=== PATIENT | female | born 1980 | race Caucasian/White ===

== ENCOUNTER 2018-03-26 17:46 | Emergency (ER) | payer OTHER ==
[~2018-03-26] VITALS: Ht 160 cm; Wt 88.5 kg
[~2018-03-26 17:46] MED LIST: AMBIEN5 MG PO; ATIVAN0.5 MG PO; BACLOFEN10 MG PO; CALCIUM + VITA1 EACH PO; CYCLOBENZAPRINE10 MG PO; DICLOFENAC SODI75 MG PO; DOXYCYCLINE HY100 MG PO; HYDROXYZINE PAM50 MG; LISINOPRIL10 MG PO; OXYCODONE HCL5 MG PO; PERCOCET 5-3251 EACH PO; PRILOSEC20 MG PO; PROMETHAZINE HC25 M1 PO; PROZAC10 MG PO; REQUIP2 MG PO; SPIRONOLACTONE50 MG PO; VITAMIN D5000 UNIT PO; ZOFRAN ODT4 MG PO
[2018-03-26] MEDS ORDERED: KEPPRA750 MG PO (18:23)
[2018-03-26] MEDS ORDERED: KEFLEX500 MG PO (18:29)
== END 2018-03-26 18:32 | disposition home or self-care (01) ==
LOC: ED 17:46
DX: L02.211 Cutaneous abscess of abdominal wall (principal); I10 Essential (primary) hypertension; Z87.891 Personal history of nicotine dependence; Z88.0 Allergy status to penicillin; Z79.899 Other long term (current) drug therapy
CPT/HCPCS: 99283

== ENCOUNTER 2018-05-24 22:15 | Emergency (ER) | payer OTHER ==
[~2018-05-24] VITALS: Ht 160 cm; Wt 88.5 kg
--- OUTSIDE RECORDS SUMMARY | ~2018-05-24 | XMS | Clinical Summary ---
Demographics + + + | Address | [address] | | | [place] [address] | + + + | Home Phone | | + + + | Preferred Language | Unknown | + + + | Marital Status | | + + + | Adventism Affiliation | Unknown | + + + | Race | Unknown | + + + | Ethnic Group | Unknown | + + + Author + + + | Author | [facility] | | | and [place] | + + + | Organization | [facility] | | | and [place] [...] Team Providers + +------+ + | Care Animal Anatomy Teacher Name | Role | Phone | + +------+ + | Melvina Talley | PP | | | IT SERVICE DELIVERY MANAGER | | | + +------+ + Allergies + + + + + + | Active Allergy | Reactions | Severity | Noted | Comments | | | | | Date | | + + + + + + | Penicillins | Rash | Low | 04/16/19 | | | | | | 18 | | + + + + + + Current Medications + + +-------+---------+------+------+-------+ | Prescription | Sig. | Disp. | Refills | Star | End | Statu | | | | | | t | Date | s | | | | | | Date | | | + + +-------+---------+------+------+-------+ | oxyCODONE 10 MG | Take 10 mg by mouth | | | | | Activ | | TABS | every 4 hours as | | | | | e | | | needed. | | | | | | + + +-------+---------+------+------+-------+ | cyclobenzaprine | Take 10 mg by mouth | | | | | Activ | | (FLEXERIL) 10 mg | 3 times daily as | | | | | e | | tablet | needed for Muscle | | | | | | | | spasms. | | | | | | + + +-------+---------+------+------+-------+ | zolpidem (AMBIEN) | Take 10 mg by mouth | | | | | Activ | | 10 mg tablet | nightly as needed | | | | | e | | | for Insomnia. | | | | | | + + +-------+---------+------+------+-------+ | docusate sodium | Take 100 mg by mouth | | | | | Activ | | (COLACE) 100 mg | Daily. | | | | | e | | capsule | | | | | | | + + +-------+---------+------+------+-------+ | omeprazole | Take 20 mg by mouth | | | | | Activ | | (PRILOSEC) 20 mg | every morning | | | | | e | | capsule | (before breakfast). | | | | | | + + +-------+---------+------+------+-------+ | spironolactone | Take 25 mg by mouth | | | | | Activ | | (ALDACTONE) 25 mg | 2 times daily. | | | | | e | | tablet | | | | | | | + + +-------+---------+------+------+-------+ | lisinopril | Take 5 mg by mouth | | | | | Activ | | (PRINIVIL, ZESTRIL) | Daily. | | | | | e | | 10 mg tablet | | | | | | | + + +-------+---------+------+------+-------+ | BYSTOLIC 10 MG | Take 10 mg by mouth | | | 03/1 | | Activ | | tablet | 2 times daily. | | | 2/20 | | e | | | | | | 18 | | | + + +-------+---------+------+------+-------+ | Cyanocobalamin | Inject as directed | | | | | Activ | | (B-12 COMPLIANCE | Every 30 days. | | | | | e | | INJECTION) 1000 | | | | | | | | MCG/ML KIT | | | | | | | + + +-------+---------+------+------+-------+ | Sennosides | Take by mouth | | | | | Activ | | (SENOKOT PO) | Daily. | | | | | e | + + +-------+---------+------+------+-------+ | baclofen | | | | 08/0 | | Activ | | (LIORESAL) 10 mg | | | | 6/20 | | e | | tablet | | | | 18 | | | + + +-------+---------+------+------+-------+ | hydrOXYzine | | | | 08/0 | | Activ | | hydrochloride | | | | 6/20 | | e | | (ATARAX) 10 mg | | | | 18 | | | | tablet | | | | | | | + + +-------+---------+------+------+-------+ | ondansetron | | | | 08/0 | | Activ | | (ZOFRAN) 8 MG tablet | | | | 6/20 | | e | | | | | | 18 | | | + + +-------+---------+------+------+-------+ Active Problems + + + | Problem | Noted Date | + + + | Diabetes mellitus [...] | 05/31/2017 | + + + | Prostate cancer (HCC) | | + + + | Chronic pelvic pain in female | | + + + Family History + + +------+ + | [...] on file | | + + + Last Filed Vital Signs + [...] + + + + | Weight | 88 kg (194 lb 0.1 | 06/04/2017907 PDT | | | oz) | | + + + + | Height | 160 cm (5' 3") | 06/04/2017907 PDT | + + + + | Body Mass Index | 34.37 | 06/04/2017907 PDT | + + + + Plan [...] + + + + | Hemoglobin A1c Q3 | | | | | Months | 7 | | | + + [...] Vaccine: Influenza | | | | | (Season Ended) | 9 | | | + + + + + Results Not on filefrom Last 3 Months Insurance + +--------+ +--------+ +---------+ | Payer | Benefi | Subscriber | Type | Phone | Address | | | t Plan | ID | | | | | | / | | | | | | | Group | | | | | + +--------+ +--------+ +---------+ | [employer] | [employer] | [id number] | Med[employer] | +- | | | MEDICAID HMO | HEALTH | | id | [id number] | | | | [place] | | | | | | | [place] | | | | | + +--------+ +--------+ +---------+ + +--------+ +--------+ + + | Guarantor Name | Accoun | Relation to | Date | Phone | Billing Address | | | t Type | Patient | of | | | | | | | | | | + +--------+ +--------+ + + | ANIKET SWEENEY | Person | Self [birth year] Home: | [address] | | | al/[place] | | 1980 | [phone] [place] [address] | | | paramjit | | | [phone] | | + +--------+ +--------+ + +
--- OUTSIDE RECORDS SUMMARY | ~2018-05-24 | XMS | Clinical Summary ---
Demographics + + + | Address | [address] | | | [place] [address] | + + + | Home Phone | | + + + | Preferred Language | Unknown | + + + | Marital Status | | + + + | Evangelical Affiliation | NON | + + + | Race | White | + + + | Ethnic Group | Not or | + + + Author + + + | Author | [facility] | + + + | Organization | [facility] | + + + | Address | Unknown | + + + | Phone | Unavailable | + + + Support + + +---------+ + | Name | Relationship | Address | Phone | + + +---------+ + | CHEN SWEENEY | ECON | Unknown | | + + +---------+ + | Kentrell Crow | ECON | Unknown | | + + +---------+ + Care Team Providers + +------+ + | Care Recreation Engineer Name | Role | Phone | + +------+ + | Melvina TalleyP | PP | | + +------+ + Source Comments ANSHU is fully live on both EpicCare Ambulatory and EpicCare InPatient.[facility] Allergies + + + + + + | Active Allergy | Reactions | Severity | Noted | Comments | | | | | Date | | + + + + + + | Penicillin | Rash | Medium | 02/04/20 | | | | | | 15 | | + + + + + + | Penicillins | Rash | | 12/10/19 | | | | | | 18 | | + + + + + + Current Medications + + +---------+---------+------+------+-------+ | Prescription | Sig. | Disp. | Refills | Star | End | Statu | | | | | | t | Date | s | | | | | | Date | | | + + +---------+---------+------+------+-------+ | omeprazole 20 mg | Take 20 mg by mouth | | | | | Activ | | oral capsule,delayed | every twelve hours. | | | | | e | | release(/EC) | | | | | | | + + +---------+---------+------+------+-------+ | lisinopril 5 mg | Take 5 mg by mouth | | | | | Activ | | oral tablet | once daily. | | | | | e | + + +---------+---------+------+------+-------+ | zolpidem 10 mg | Take 10 mg by mouth | | | | | Activ | | oral tablet | once daily at | | | | | e | | | bedtime as needed | | | | | | | | for sleep. | | | | | | + + +---------+---------+------+------+-------+ | FLUoxetine 10 mg | Take 10 mg by mouth | | | | | Activ | | oral capsule | once daily. | | | | | e | + + +---------+---------+------+------+-------+ | rOPINIRole 1 mg | Take 1 mg by mouth | | | | | Activ | | oral tablet | once daily in the | | | | | e | | | evening. | | | | | | + + +---------+---------+------+------+-------+ | ondansetron 8 mg | Take 8 mg by mouth | | | | | Activ | | oral tablet | once daily as | | | | | e | | | needed. | | | | | | + + +---------+---------+------+------+-------+ | baclofen 10 mg | Take 10 mg by mouth | | | | | Activ | | oral tablet | four times daily. | | | | | e | + + +---------+---------+------+------+-------+ | hydrOXYzine 10 mg | Take 10 mg by mouth | | | | | Activ | | oral tablet | four times daily. | | | | | e | + + +---------+---------+------+------+-------+ | LORazepam 0.5 mg | Take 0.5 mg by mouth | | | | | Activ | | oral tablet | as needed for | | | | | e | | | anxiety. | | | | | | + + +---------+---------+------+------+-------+ | promethazine 12.5 | Take 12.5 mg by | | | | | Activ | | mg oral tablet | mouth four times | | | | | e | | | daily as needed for | | | | | | | | nausea/vomiting. | | | | | | + + +---------+---------+------+------+-------+ | cyanocobalamin | Inject 1,000 mcg | | | | | Activ | | 1,000 mcg/mL | under the skin | | | | | e | | injection solution | (SUBC) every seven | | | | | | | | days. | | | | | | + + +---------+---------+------+------+-------+ | oxyCODONE | Take 10 mg by mouth | | | | | Activ | | (immediate release) | as needed. | | | | | e | | 10 mg oral tablet | | | | | | | + + +---------+---------+------+------+-------+ | levETIRAcetam 750 | Take 1 tablet by | 90 | 3 | 01/ | | Activ | | mg oral tablet | mouth two times | tablet | | 07/07 | | e | | | daily. | | | 19 | | | + + +---------+---------+------+------+-------+ | ergocalciferol | Take 1 capsule by | 10 | 0 | 01/2 | | Activ | | (VITAMIN D2) 50,000 | mouth every seven | capsule | | 5/20 | | e | | unit oral capsule | days. | | | 19 | | | + + +---------+---------+------+------+-------+ Active Problems + + + | Problem | Noted Date | + + + | MOISÉS (obstructive sleep apnea) | 06/27/2016 | + + + | Obesity (BMI 30-39.9) | 06/27/2016 | + + + | Essential hypertension | 06/27/2016 | + + + | Migraine without aura and without status migrainosus, not | 03/27/2015 | | intractable | | + + + Encounters +--------+ + + + + | Date | Type | Specialty | Care Team | Description | +--------+ + + + + | 05/07/ | MyChart | | Keon Gerber, | Vitamin D | | 2019 | Encounter | | MD | | +--------+ + + + + | 01/25/ | Lab | | | RLS (restless legs | | 2019 | | | | syndrome); Abdominal | | | | | | pain, unspecified | | | | | | abdominal location; | | | | | | Myoclonus; | | | | | | Hypovitaminosis D | +--------+ + + + + | 03/14/ | Office | | Keon Gerber, | Myoclonus (Primary | | 2018 | Visit | | MD | Dx); RLS (restless | | | | | | legs syndrome); | | | | | | Abdominal pain, | | | | | | unspecified | | | | | | abdominal location; | | | | | | Hypovitaminosis D | +--------+ + + + + | 03/14/ | MyChart | | Keon Gerber, | RE:Labs | | 2018 | Encounter | | MD | | +--------+ + + + + from Last 3 Months Family History + + +------+ + | Medical History | Relation | Name | Comments | + + +------+ + | Cancer | Maternal | | Colon, breast | | | Grandmoth | | | | | er | | | + + +------+ + | Thyroid | Maternal | | | | | Grandmoth | | | | | er | | | + + +------+ + | Thyroid | Mother | | | + + +------+ + | Thyroid | Sister | | | + + +------+ + | Movement Disorder | Neg Hx | | | + + +------+ + | Tremor | Neg Hx | | | + + +------+ + + +------+--------+ + | Relation | Name | Status | Comments | + +------+--------+ + | Maternal Grandmother | | | | + +------+--------+ + | Mother | | | | + +------+--------+ + | Sister | | | | + +------+--------+ + Social History + +-------+ +--------+------+ | [...] + + + | Blood Pressure | 144/80 | 03/14/2018 2:45 PM PST | + + + + | Pulse | 72 | 03/14/2018 2:45 PM PST | + + + + | Temperature | 37 C (98.6 F) | 12/09/2017 7:27 PM PDT | + + + + | Respiratory Rate | 12 | 12/09/2017 2:00 PM PDT | + + + + | Oxygen Saturation | 99% | 12/09/2017 7:27 PM PDT | + + + + | Inhaled Oxygen | - | - | | Concentration | | | + + + + | Weight | 89.8 kg (198 lb) | 03/14/2018 2:45 PM PST | + + + + | Height | 160 cm (5' 3") | 08/17/2016 1:47 PM PDT | + + + + | Body Mass Index | 35.07 | 03/14/2018 2:45 PM PST | + + + + Plan of Treatment +--------+---------+ + + + | Date | Type | Specialty | Care Team | Description | +--------+---------+ + + + | 06/11/ | Office | | Vicki Miller MD | | | 2019 | Visit | | [address] | | | | | | [place], | | | | | | [place] [address] | | | | | | [phone] | | | | | | | | +--------+---------+ + + + + + + + + | Health Maintenance | Due Date | Last Done | Comments | + + + + + | Pneumococcal (Adult) | | | | | (1 of 3 - PCV13) | 8 | | | + + + + + | Influenza (Flu) | | 02/21/2016, 01/06/2008 | | | vaccination (#1) | 8 | | | + + + + + Procedures + +--------+ + + + | [...] section. | + +--------+ + + + from Last 3 Months Results PORPHYRINS AND PORPHOBILINOGEN, URINE (03/14/2018 4:29 PM) + + + + + | Component | Value | Ref Range | Performed At | + + + + + | UROPORPHYRIN, URINE | 3 | 0 - 4 umol/mol SKID MAN | [facility] | | ([facility]) | | | [facility] | | | | | [facility] | + + + + + | HEPTACARBOXYLATE | <1 | 0 - 2 umol/mol SKID MAN | [facility] | | PORPHYRIN([facility]) | | | [facility] | | | | | [facility] | + + + + + | COPROPORPHYRIN I | 3 | 0 - 6 umol/mol SKID MAN | [facility] | | | | | [facility] | | | | | [facility] | + + + + + | COPROPORPHYRIN III | 10 | 0 - 14 umol/mol SKID MAN | [facility] | | | | | [facility] | | | | | [facility] | + + + + + | CREATININE,UR(REFERR | Not Applicable | 700 - 1600 mg/d | [facility] | | AL) | | | [facility] | | | | | [facility] | + + + + + | CREATININE URINE | 75 | mg/dL | [facility] | | CONCENTRATION | | | [facility] | | | | | [facility] | + + + + + | URINE COLLECTION | Not Provided | hr | [facility] | | | | | [facility] | | | | | [facility] | + + + + + | URINE VOLUME(REF) | Not Provided | mL | [facility] | | | | | [facility] | | | | | [facility] | + + + + + | PORPHOBILINOGEN, | 3.7 | 0.0 - 8.8 umol/L | [facility] | | URINE | | | [facility] | | | | | [facility] | + + + + + | PORPHOBILINOGEN, | Not Applicable | 0.0 - 11.0 umol/d | [facility] | | URINE (24-HOUR) | | | [facility] | | | | | [facility] | + + + + + | PORPHYRIN | NegativeComment: | | [facility] | | INTERPRETATION | INTERPRETIVE | | [facility] | | | INFORMATION: Porphyrins, | | [facility] | | | Fractionation and | | | | | Quantitation, | | | | | | | | | | | | | | | Urine Results are | | | | | normalized to creatinine | | | | | concentration and | | | | | reported as a ratio of | | | | | amounts (micromoles of | | | | | porphyrin/moles of | | | | | creatinine). Test | | | | | developed and | | | | | characteristics | | | | | determined by [facility] | | | | | [facility]. See | | | | | Compliance Statement B: | | | | | [facility]/CSPerformed | | | | | by [facility],[address] | | | | | [address] [facility],[place] | | | | | [address] | | | | | [phone][facility]. | | | | | Kaleb neely MD, | | | | | Lab. Director | | | + + + + + + + | Specimen | + + | Urine - Urine | + + + + + + + | Performing | Address | City/State/Zipcode | Phone Number | | Organization | | | | + + + + + | [facility] | [address] | [place], [place] | | | [facility] | | [address] | | + + + + + ALA, URINE (03/14/2018 4:29 PM) + + + + + | Component | Value | Ref Range | Performed At | + + + + + | AMINOLEVULINIC ACID | Not Applicable | 0 - 60 umol/d | [facility] | | - PER 24H | | | [facility] | | | | | [facility] | + + + + + | AMINOLEVULINIC ACID | 10 | 0 - 35 umol/L | [facility] | | - PER VOLUME | | | [facility] | | | | | [facility] | + + + + + | CREATININE,UR(REFERR | Not Applicable | 700 - 1600 mg/d | [facility] | | AL) | | | [facility] | | | | | [facility] | + + + + + | CREATININE URINE | 72Comment: Performed by | mg/dL | [facility] | | CONCENTRATION | [facility],[address] | | [facility] | | | Marlon [address]ash, [facility],[place] | | [facility] | | | [address] | | | | | [phone].[facility]. | | | | | Kaleb neely MD, | | | | | Lab. Director | | | + + + + + | URINE COLLECTION | Not Provided | hr | [facility] | | | | | [facility] | | | | | [facility] | + + + + + | URINE VOLUME(REF) | Not Provided | mL | [facility] | | | | | [facility] | | | | | [facility] | + + + + + + + | Specimen | + + | Urine - Urine | + + + + + + + | Performing | Address | City/State/Zipcode | Phone Number | | Organization | | | | + + + + + | [facility] | [address] | [place], [place] | | | [facility] | | [address] | | + + + + + CBC AND AUTO DIFF (03/14/2018 4:26 PM) + + + + + | Component | Value | Ref Range | Performed At | + + + + + | WHITE CELL COUNT | 10.53 | 3.50 - 10.80 K/cu mm | [facility] | | | | | SERVICES, CORE | + + + + + | RED CELL COUNT | 4.75 | 4.00 - 5.20 M/cu mm | [facility] | | | | | SERVICES, CORE | + + + + + | HEMOGLOBIN | 14.0 | 12.0 - 16.0 g/dL | [facility] | | | | | SERVICES, CORE | + + + + + | HEMATOCRIT | 41.2 | 36.0 - 46.0 % | [facility] | | | | | SERVICES, CORE | + + + + + | MCV | 86.7 | 80.0 - 100.0 fL | [facility] | | | | | SERVICES, CORE | + + + + + | MCHC | 34.0 | 32.0 - 36.0 g/dL | [facility] | | | | | SERVICES, CORE | + + + + + | RDW SD | 40.5 | 35.1 - 46.3 fL | [facility] | | | | | SERVICES, CORE | + + + + + | PLATELET COUNT | 382 | 150 - 400 K/cu mm | [facility] | | | | | SERVICES, CORE | + + + + + | MPV | 10.2 | 9.7 - 12.3 fL | [facility] | | | | | SERVICES, CORE | + + + + + | NRBC% | 0.0 | 0.0 - 0.3 % | [facility] | | | | | SERVICES, CORE | + + + + + | NRBC# | 0.00 | 0.00 - 0.02 K/cu mm | [facility] | | | | | SERVICES, CORE | + + + + + | NEUTROPHIL % | 56.6 | 50.0 - 70.0 % | [facility] | | | | | SERVICES, CORE | + + + + + | LYMPHOCYTE % | 34.8 | 18.0 - 42.0 % | [facility] | | | | | SERVICES, CORE | + + + + + | MONOCYTE % | 4.7 | 3.5 - 9.0 % | [facility] | | | | | SERVICES, CORE | + + + + + | EOS % | 3.4 (H) | 1.0 - 3.0 % | [facility] | | | | | SERVICES, CORE | + + + + + | BASO % | 0.1 | 0.0 - 2.0 % | [facility] | | | | | SERVICES, CORE | + + + + + | IG% | 0.4Comment: Increased | 0.0 - 1.0 % | [facility] | | | immature granulocytes | | SERVICES, CORE | | | (IG) define a left | | | | | shift. Immature | | | | | granulocytes (IG) are an | | | | | automated count of | | | | | metamyelocytes, | | | | | myelocytes and | | | | | promyelocytes. Bands | | | | | are not included in the | | | | | IG count. Bands are | | | | | included in the | | | | | neutrophil count. | | | + + + + + | NEUTROPHIL # | 5.96 | 1.80 - 7.70 K/cu mm | [facility] | | | | | SERVICES, CORE | + + + + + | LYMPHOCYTE # | 3.66 | 1.00 - 4.80 K/cu mm | [facility] | | | | | SERVICES, CORE | + + + + + | MONOCYTE # | 0.50 | 0.10 - 0.90 K/cu mm | [facility] | | | | | SERVICES, CORE | + + + + + | EOS # | 0.36 | 0.00 - 0.50 K/cu mm | [facility] | | | | | SERVICES, CORE | + + + + + | BASO # | 0.01 | 0.00 - 0.10 K/cu mm | [facility] | | | | | SERVICES, CORE | + + + + + | IG# | 0.04 | 0.00 - 0.10 K/cu mm | [facility] | | | | | SERVICES, CORE | + + + + + + + | Specimen | + + | Blood - Blood | + + + + + | [...] | + + + + + | [facility] | [address] | [place] [address] | | | ADIEL, JONATHAN | [address] | | | + + + + + VITAMIN D, 25-HYDROXY, SERUM (03/14/2018 4:26 PM) + + + + + | Component | Value | Ref Range | Performed At | + + + + + | VITAMIN D 25 HYDROXY | 18.6 (L) | 30 - 80 ng/mL | [facility] | | | | | SERVICES, CORE | + + + + + + + | Specimen | + + | Blood - Blood | + + + + + | Narrative | Performed At | + + + | Reference Interval: 0-18years: Deficiency: <20 ng/mL | [facility] | | Optimum level: >or=20 | [facility] | | ng/mL | ADIEL, CORE | | >18years: Deficiency: <20 ng/mL | | | Insufficiency: 20-29 ng/mL | | | Optimum Level: 30-80 ng/mL | | | High: 81-150 ng/ml | | | Toxic: >150 ng/mL | | + + + + + + + + | Performing | Address | City/State/Zipcode | Phone Number | | Organization | | | | + + + + + | [facility] | [address] | [place] [address] | | | JONATHAN CHUN | [address] | | | + + + + + COMPLETE METABOLIC SET (NA,K,CL,CO2,BUN,CREAT,GLUC,CA,AST,ALT,BILI TOTAL,ALK PHOS,ALB,PROT TOTAL) (03/14/2018 4:26 PM) + +---------+ + + | Component | Value | Ref Range | Performed At | + +---------+ + + | GLUCOSE, PLASMA | 97 | 70 - 99 mg/dL | [facility] | | (LAB) | | | SERVICES, CORE | + +---------+ + + | BUN, PLASMA (LAB) | 10 | 6 - 20 mg/dL | [facility] | | | | | SERVICES, CORE | + +---------+ + + | CREATININE PLASMA | 0.67 | 0.60 - 1.10 mg/dL | [facility] | | (LAB) | | | SERVICES, CORE | + +---------+ + + | EGFR - | >60 | >60 mL/min | [facility] | | NAMIBIAN | | | SERVICES, CORE | + +---------+ + + | EGFR NON | >60 | >60 mL/min | [facility] | | -NAMIBIAN | | | SERVICES, CORE | + +---------+ + + | SODIUM, PLASMA (LAB) | 137 | 136 - 145 mmol/L | [facility] | | | | | SERVICES, CORE | + +---------+ + + | POTASSIUM, PLASMA | 4.0 | 3.4 - 5.0 mmol/L | [facility] | | (LAB) | | | SERVICES, CORE | + +---------+ + + | CHLORIDE, PLASMA | 105 | 97 - 108 mmol/L | [facility] | | (LAB) | | | SERVICES, CORE | + +---------+ + + | TOTAL CO2, PLASMA | 26 | 21 - 32 mmol/L | [facility] | | (LAB) | | | SERVICES, CORE | + +---------+ + + | CALCIUM, PLASMA | 8.9 | 8.6 - 10.2 mg/dL | [facility] | | (LAB) | | | ADIEL, CORE | + +---------+ + + | CALCIUM(ALB | 8.6 | 8.6 - 10.2 mg/dL | [facility] | | CORRECTED) | | | SERVICES, CORE | + +---------+ + + | BILIRUBIN TOTAL | 0.4 | 0.3 - 1.2 mg/dL | [facility] | | | | | SERVICES, CORE | + +---------+ + + | TOTAL PROTEIN, | 7.6 | 6.4 - 8.2 g/dL | [facility] | | PLASMA (LAB) | | | ADIEL, [facility] | + +---------+ + + | ALBUMIN, PLASMA | 4.4 | 3.5 - 4.7 g/dL | [facility] | | (LAB) | | | SERVICES, CORE | + +---------+ + + | ALK PHOS | 79 | 42 - 98 U/L | [facility] | | | | | SERVICES, CORE | + +---------+ + + | AST(SGOT) | 12 | <=41 U/L | [facility] | | | | | SERVICES, CORE | + +---------+ + + | ALT (SGPT) | 28 | <=60 U/L | [facility] | | | | | SERVICES, CORE | + +---------+ + + | ANION GAP | 6 | 4 - 11 mmol/L | [facility] | | | | | SERVICES, CORE | + +---------+ + + | ANION GAP(ALB | 5 | 4 - 11 mmol/L | [facility] | | CORRECTED) | | | SERVICES, CORE | + +---------+ + + | POTASSIUM CMNT | No Hemo | | [facility] | | | | | SERVICES, CORE | + +---------+ + + | BILI T CMNT | No Hemo | | [facility] | | | | | SERVICES, CORE | + +---------+ + + | AST CMNT | No Hemo | | [facility] | | | | | SERVICES, CORE | + +---------+ + + + + | Specimen | + + | Blood - Blood | + + + + + | Narrative | Performed At | + + + | GFR is estimated using the MDRD equation recommended by the | [facility] | | National Kidney Disease Education Program. Estimated GFR | LABORATORY | | Interpretive Information: <60 mL/min/1.73 sq | SERVICES, [facility] | | m Chronic Kidney Disease <15 mL/min/1.73 | | | sq m Kidney Failure Estimated GFR greater | | | than 60 mL/min/1.73 sq m is of limited clinical value. The MDRD | | | equation is not valid in the following situations: - Patients under | | | 18 years of age - Severe malnutrition or obesity - Vegetarian diet | | | - Rapidly changing kidney function - Amputees, paraplegics, or other | | | muscle-wasting diseses | | + + + + + + + + | Performing | Address | City/State/Zipcode | Phone Number | | Organization | | | | + + + + + | [facility] | [address] | [place] [address] | | | SERVICES, CORE | [address] | | | + + + + + FERRITIN (03/14/2018 4:26 PM) + + + + + | Component | Value | Ref Range | Performed At | + + + + + | FERRITIN | 62Comment: Male and | 50 - 200 ng/mL | [facility] | | | Female >18 years: | | SERVICES, CORE | | | <20 | | | | | ng/mL: | | | | | Consistant with iron | | | | | deficiency 21-50 | | | | | ng/mL: Possible | | | | | iron deficiency | | | | | 51-99 ng/mL: | | | | | Iron deficiency unlikely | | | | | unless inflammation | | | | | present | | | | | or | | | | | patien | | | | | t >65 years of age | | | | | 100-200 ng/mL: | | | | | Normal, not consistent | | | | | with iron | | | | | deficiency >200 | | | | | ng/mL: If | | | | | transferrin saturation | | | | | >45%, consider | | | | | hemochromatosis | | | + + + + + + + | Specimen | + + | Blood - Blood | + + + + + + + | Performing | Address | City/State/Zipcode | Phone Number | | Organization | | | | + + + + + | [facility] | [address] | [place] [address] | | | ADIEL, JONATHAN | [address] | | | + + + + + from Last 3 Months Insurance + +--------+ +--------+-------+---------+ | Payer | Benefi | Subscriber | Type | Phone | Address | | | t Plan | ID | | | | | | / | | | | | | | Group | | | | | + +--------+ +--------+-------+---------+ | [employer] | K[employer]EN SUPERVISOR | xxxxxxxx | Medica | | | | | [place] | | id | | | | | [place] | | | | | + +--------+ +--------+-------+---------+ | [employer] MEDICAID | K[employer]EN SUPERVISOR | xxxxxxxx | Medica | | | | | [place] | | id | | | | | [place] | | | | | + +--------+ +--------+-------+---------+ + +--------+ +--------+ + + | Guarantor Name | Accoun | Relation to | Date | Phone | Billing Address | | | t Type | Patient | of | | | | | | | | | | + +--------+ +--------+ + + | ANIKET SWEENEY | Person | Self [birth year] | Home: | [address] | | | al/[place] | | 1980 | [phone] [place] [address] | | | paramjit | | | [phone] | | + +--------+ +--------+ + +
--- OUTSIDE RECORDS SUMMARY | ~2018-05-24 | XMS | Encounter Summary ---
Demographics + + + | Address | [address] | | | [place] [address] | + + + | Home Phone | | + + + | Preferred Language | Unknown | + + + | Marital Status | | + + + | Mormon Affiliation | NON | + + + | Race | White | + + + | Ethnic Group | Not or | + + + Author + + + | Author | [facility] | + + + | Organization | [facility] | + + + | Address | [...] Team Providers + +------+ + | Care Pneumatic Tube Fitter Name | Role | Phone | + +------+ + | Melvina Talley | PCP | | + +------+ + Reason for Visit + + + | Reason | Comments | + + + | Follow-up visit | | + + + Office Visit - E/M Services (Routine) + +--------+ + + + + | Status | Reason | Specialty | Diagnoses / | Referred By | Referred To | | | | | Procedures | Contact | Contact | + +--------+ + + + + | Authorized | | Neurology | Diagnoses | Non-[facility] | | | | | Other | Epic Dept | [address] | | | | | generalized | | [address] | | | | | epilepsy and | | Mail Code: | | | | | epileptic | | [facility] | | | | | syndromes, | | for Health | | | | | not | | and Healing, | | | | | intractable, | | 8th floor | | | | | without | | [place], [place] | | | | | status | | [address] | | | | | epilepticus | | Phone: | | | | | Procedures | | [phone] | | | | | MS NEW | | Fax: | | | | | PATIENT | | [phone] | | | | | LEVEL V MS | | | | | | | EST PATIENT | | | | | | | LEVEL V | | | + +--------+ + + + + Encounter Details +--------+---------+ + + + | Date | Type | Department | Care Team | Description | +--------+---------+ + + + | 03/14/ | Office | Neurology at | Keon Gerber, | Myoclonus (Primary | | 2019 | Visit | [facility] | [address] | Dx); RLS (restless | | | | Healing [address] | [place], [place] | legs syndrome); | | | | [address] Mail Code: | [address] | Abdominal pain, | | | | [facility] | [phone] | unspecified | | | | Health and Healing, | | abdominal location; | | | | 8th floor [place], | | Hypovitaminosis D | | | | [place] [address] | | | | | | [phone] | | | +--------+---------+ + + + [...] on file | | + + + as of this encounter Last Filed Vital Signs + + + + | Vital Sign | Reading | Time Taken | + + + + | Blood Pressure | 144/80 | 03/14/2018 2:45 PM PST | + + + + | Pulse | 72 | 03/14/2018 2:45 PM PST | + + + + | Temperature | - | - | + + + + | Respiratory Rate | - | - | + + + + | Oxygen Saturation | - | - | + + + + | Inhaled Oxygen | - | - | | Concentration | | | + + + + | Weight | 89.8 kg (198 lb) | 03/14/2018 2:45 PM PST | + + + + | Height | - | - | + + + + | Body Mass Index | 35.07 | 03/14/2018 2:45 PM PST | + + + + in this encounter Instructions Patient Instructions - Keon Gerber MD - 03/14/2018 2:35 PM PSTA syndrome to consider is familial paroxysmal nonkinesigenic dyskinesia; the genetic testing is expensive and I'm n ot convinced however to justify testing this 1. Please go to the lab for ferritin (iron), porphyria labs 2. Reasonable to increase Keppra to 750 mg twice a day - From 500 mg twice a day - Monitor for abnormal side effects, agitation 3. Please obtain MRI discs/actual imaging for review as I couldn't see these 4. Return to clinic in 5 monthsin this encounter Progress Notes Chelle Mckeon RN - 03/14/2018 2:35 PM PSTLVM with [facility] requesting them to push M RI from 05/06/2013 to [facility] Keon Shrestha MD - 03/14/2018 2:35 PM PSTFormatting of th is note may be different from the original. [facility] Consultation Visit Today's Date: 03/14/2018 [...] the patient. HPI: She was seen at [facility] on 12/09/2017 by neurology resident Antonio Bertrand [...] now is having half this time. Sh e has been having intermittent "spasms" of her [...] multiple neurologists; saw Dr Nguyen Prince at [facility] in 2013 most recently who suspected myoclonus. Per patient, she had an EEG which captured t hem and was told that the EEG was normal (work-up done in [place], [place]). She was not started on medications, but referred to [facility] neurology for further evaluation/treatment options. 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 I do n ot think that these are epileptic however depending on her response, could consider routine or ambulatory EEG to capture one of these events, particularly if she requires additional th erapy. She had prior MRI's done at [facility], 04/2013; will request imaging. Her examination is [...] consistent with her episodic worsening, could con advertising sales representative repeating this testing in the future. She [...] Review prior MRI brain from 04/2013 - [facility] in 5 months Orders Placed This Encounter FERRITIN PORPHYRINS AND PORPHOBILINOGEN, URINE ALA, URINE COMP METABOLIC SET [[id number]] CBC, WITH DIFFERENTIAL [[id number]] VITAMIN D, 25-HYDROXY, SERUM [[id number]] levETIRAcetam 750 mg oral tablet I spent 75 minutes with the patient during the visit. More than half of the visit was spent counseling the patient. Keon Gerber MD Neurology Department [facility] Pager [phone] in this encounter Plan of Treatment +--------+---------+ + + + | Date | Type | Specialty | Care Team | Description | +--------+---------+ + + + | 06/11/ | Office | Gastroenterology | Vicki Miller MD | | | 2018 | Visit | | [address] | | | | | | [place], | | | | | | [place] [address] | | | | | | [phone] | | | | | | | | +--------+---------+ + + + as of this encounter Results ALA, URINE (03/14/2018 4:29 PM) + + [...] | [facility] | | CONCENTRATION | [facility],[address] | | [address] - | | | Fidencio Bustos, [facility] [place] | | [place] | | | [address] | | | | | [phone].[email or web address]. | | | | | Kaleb neely [...] [facility] | [address] | [place], [place] | | | [address] - [place] | | [address] | | + + + + + PORPHYRINS AND PORPHOBILINOGEN, URINE (03/14/2018 4:29 PM) + + + + + | Component | Value | Ref Range | Performed At | + + + + + | UROPORPHYRIN, URINE | 3 | 0 - 4 umol/mol X RAY TECHNICIAN | [facility] | | ([facility]) | | | [address] - | | | | | [facility] | + + + + + | HEPTACARBOXYLATE | <1 | 0 - 2 umol/mol X RAY TECHNICIAN | [facility] | | PORPHYRIN([facility]) | | | [address] - | | | | | [facility] | + + + + + | COPROPORPHYRIN I | 3 | 0 - 6 umol/mol X RAY TECHNICIAN | [facility] | | | | | [address] - | | | | | [facility] | + + + + + | COPROPORPHYRIN III | 10 | 0 - 14 umol/mol X RAY TECHNICIAN | [facility] | | | | [...] | | | | | determined by [facility] | | | | | Laboratories. See | | | | | Compliance Statement B: | | | | | [facility] / TLL/CSPerformed | | | | | by [employer],[address] | | | | | [address]ustos, [facility] [place] | | | | | [address] | | | | | [phone].Lytro. | | | | | [facility] centerKaleb MD, | | | | | Lab. Director | | | + + + + + + + | Specimen | + + | Urine - Urine | + + + + + + + | Performing | Address | City/State/Zipcode | Phone Number | | Organization | | | | + + + + + | [facility] | [address] | [place], [place] | | | [address] - [place] | | [address] | | + + + + + VITAMIN D, 25-HYDROXY, SERUM (03/14/2018 4:26 PM) + + + + + | Component | Value | Ref Range | Performed At | + + + + + | VITAMIN D 25 HYDROXY | 18.6 (L) | 30 - 80 ng/mL | [facility] | | | | [...] + + + + + | [facility] | [address] | [place] [address] | | | JONATHAN CHUN | NATASHA [...] >60 mL/min | [facility] | | [place] | | | SERVICES, CORE | + +---------+ + + | EGFR NON | >60 | >60 mL/min | [facility] | | -[place] | | | SERVICES, CORE | + [...] | | PLASMA (LAB) | | | SERVICES, CORE | + +---------+ + + | ALBUMIN, [...] + + | [facility] | [address] | [place] [address] | | | SERVICES, CORE | NATASHA [...] | + + + + + | [facility] | [address] | [place] [address] | | | JONATHAN CHUN | [address] | | | + + + + + in this encounter Visit Diagnoses + + | Diagnosis | + + | Myoclonus - Primary | + + | RLS (restless legs syndrome) | + + | Restless legs syndrome (RLS) | + + | Abdominal pain, unspecified abdominal location | + + | Hypovitaminosis D | + + | Unspecified vitamin D deficiency | + +
--- OUTSIDE RECORDS SUMMARY | ~2018-05-24 | XMS | Clinical Summary ---
Demographics + + + | Address | [address] | | | [place] [address] | + + + | Home Phone | | + + + | Preferred Language | Unknown | + + + | Marital Status | | + + + | Yazidi Affiliation | Unknown | + + + | Race | Unknown | + + + | Ethnic Group | Unknown | + + + Author + + + | Author | [facility] [employer] | + + + | Organization | [facility] [employer] | + + + | Address | Unknown | + + + | Phone | Unavailable | + + + Support + + +---------+ + | Name | Relationship | Address | Phone | + + +---------+ + | Edmond Sweeney | ECON | Unknown | | + + +---------+ + Care Team Providers + +------+ + | Care Predatory Hunter Name | Role | Phone | + +------+ + | Gerri Melvina TUNNEL ELASTIC OPERATOR LOCKSTITCH | PP | | + +------+ + [...] + | Alcohol abuse | Brother | Joshua | | + + +---------+ + | [...] + +---------+--------+ + | Maternal Grandmother | Dejan | | | + +---------+--------+ + | [...] +------+-------+ + | MEDICAID | [place]ER | [id number] | | | [address] | | | N | | | | [place] | | | [place] | | | | [address] | | | GAS FLOW REGULATOR | | | | | + +--------+ [...] Self | [birth year] | Home: | [address] | | | al/Fam | | [phone] | [phone] | [place] | | | paramjit | | | [phone] | [address] | + +--------+ +--------+ + +
--- OUTSIDE RECORDS SUMMARY | ~2018-05-24 | XMS | Clinical Summary ---
Demographics + + + | Address | [address] | | | [place] [address] | + + + | Home Phone | | + + + | Preferred Language | Unknown | + + + | Marital Status | | + + + | Yazdanism Affiliation | Unknown | + + + | Race | Unknown | + + + | Ethnic Group | Unknown | + + + Author + + + | Author | [facility] | | | and Brandynana | + + + | Organization | [facility] | | | and [...] Team Providers + +------+ + | Care Hvac Technician Residential Name | Role | Phone | + +------+ + | Melvina Talley | PP | | | MULTI PUNCH OPERATOR | | | + +------+ + Allergies [...] | [employer] | MODA | [id number] | Medica | +- | | | [...] | 1980 | [phone] | [place] [address] | | | paramjit | | | [phone] | | + +--------+ +--------+ + +
--- OUTSIDE RECORDS SUMMARY | ~2018-05-24 | XMS | Encounter Summary ---
Demographics + + + | Address | [address] | | | [place] [address] | + + + | Home Phone | | + + + | Preferred Language | Unknown | + + + | Marital Status | | + + + | Rastafari Affiliation | NON | + + + | Race | White | + + + | Ethnic Group | Not or | + + + Author + + + | Author | [facility] | + + + | Organization | [facility] | + + + | Address [...] Team Providers + +------+ + | Care Bar Pointer Name | Role | Phone | + +------+ + | Melvina Talley | PCP | | + +------+ + Encounter Details +--------+ + + + + | Date | Type | Department | Care Team | Description | +--------+ + + + + | 05/07/ | MyChart | Neurology at | Keon Gerber, | Vitamin D | | 2019 | Encounter | [facility] & | MD [address] | | | | | Imelda Brown | [place], [place] | | | | | [address] Mail Code: | [address] | | | | | [facility] | [phone] | | | | | Health and Healing, | | | | | | [address] [facility], | | | | | | [place] [address] | | | | | | [phone] | | | +--------+ + + + [...] + + + as of this encounter Plan of Treatment +--------+---------+ + + + | Date | Type | Specialty | Care Team | Description | +--------+---------+ + + + | 06/11/ | Office | Gastroenterology | Vicki Miller MD | | | 2019 | Visit | | [address] | | | | | | [place], | | | | | | [place] [address] | | | | | | [phone] | | | | | | | | +--------+---------+ + + + as of this encounter Visit Diagnoses Not on filein this encounter"
--- OUTSIDE RECORDS SUMMARY | ~2018-05-24 | XMS | Encounter Summary ---
Demographics + + + | Address | [address] | | | [place] [address] | + + + | Home Phone | | + + + | Preferred Language | Unknown | + + + | Marital Status | | + + + | Synagogue Affiliation | NON | + + + | Race | White | + + + | Ethnic Group | Not or | + + + Author + + + | Author | [facility] | + + + | Organization | [facility] | + + + | Address [...] Team Providers + +------+ + | Care Healthcare Manager Name | Role | Phone | + +------+ + | Melvina Talley | PCP | | + +------+ + Encounter Details +--------+------+ + + + | Date | Type | Department | Care Team | Description | +--------+------+ + + + | 03/14/ | Lab | Laboratory at [facility] | | RLS (restless legs | | 2019 | | 3rd Floor [address] | | syndrome); Abdominal | | | | [address] [place], | | pain, unspecified | | | | [place] [address] | | abdominal location; | | | | [phone] | | Myoclonus; | | | | [...] | | | | | [place], | | | | | | [place] [address] | | | | | | [phone] | | | | | | | | +--------+---------+ + + + as of this encounter Procedures + +--------+ [...] section. | + +--------+ + + + in this encounter Results ALA, URINE (03/14/2018 [...] | [facility] | | CONCENTRATION | [facility],[address] | | [address] - | | | Marlon Bustos, [place], [place] | | [facility] | | | [address] | | | | | [phone].Beauty Bookeduplab. | | | | | Kaleb neely [...] [facility] | [address] | [place], [place] | | | [address] - [place] | | [address] | | + + + + + PORPHYRINS AND PORPHOBILINOGEN, URINE (03/14/2018 4:29 PM) + + + + + | Component | Value | Ref Range | Performed At | + + + + + | UROPORPHYRIN, URINE | 3 | 0 - 4 umol/mol MANAGER DRUG SAFETY | [facility] | | ([facility]) | | | [address] - | | | | | [facility] | + + + + + | HEPTACARBOXYLATE | <1 | 0 - 2 umol/mol MANAGER DRUG SAFETY | [facility] | | PORPHYRIN([facility]) | | | [address] - | | | | | [facility] | + + + + + | COPROPORPHYRIN I | 3 | 0 - 6 umol/mol MANAGER DRUG SAFETY | [facility] | | | | | [address] - | | | | | [facility] | + + + + + | COPROPORPHYRIN III | 10 | 0 - 14 umol/mol MANAGER DRUG SAFETY | [facility] | | | | [...] | | | | | determined by [facility] | | | | | Laboratories. See | | | | | Compliance Statement B: | | | | | [employer].[facility] Lab/CSPerformed | | | | | by [employer],[address] | | | | | Marlon [address]ust[address] [facility] [place] | | | | | [address] | | | | | [phone].WeatherNation TV. | | | | | comKaleb MD, | | | | | Lab. [...] [facility] | [address] | [place], [place] | | | [address] [place] | | [address] | | + + + + + CBC AND AUTO DIFF (03/14/2018 4:26 PM) + + + + + | Component | Value | Ref Range | Performed At | + + + + + | WHITE CELL COUNT | 10.53 | 3.50 - 10.80 K/cu mm | [facility] | | [...] 40.5 | 35.1 - 46.3 fL | [facility] | | | | | SERVICES, CORE | + + + + + | PLATELET COUNT | 382 | 150 - 400 K/cu mm | [facility] | | | | | SERVICES, CORE | + + + + + | MPV | 10.2 | 9.7 - 12.3 fL | [facility] | | | | | SERVICES, CORE | + + + + + | NRBC% | 0.0 | 0.0 - 0.3 % | [facility] | | | | | SERVICES, CORE | + + + + + | NRBC# | 0.00 | 0.00 - 0.02 K/cu mm | [facility] | | | | | SERVICES, [...] | 3.5 - 9.0 % | [facility] | | | | | SERVICES, CORE | + + + + + | EOS % | 3.4 (H) | 1.0 - 3.0 % | [facility] | | | | | SERVICES, CORE | + + + + + | BASO % | 0.1 | 0.0 - 2.0 % | [facility] | | | | | SERVICES, CORE | + + + + + | IG% | 0.4Comment: Increased | 0.0 - 1.0 % | [facility] | | | immature granulocytes | [...] | 1.80 - 7.70 K/cu mm | [facility] | | | | | SERVICES, CORE | + + + + + | LYMPHOCYTE # | 3.66 | 1.00 - 4.80 K/cu mm | [facility] | | | | | SERVICES, CORE | + + + + + | MONOCYTE # | 0.50 | 0.10 - 0.90 K/cu mm | [facility] | | | | | [...] not included in the IG count. | [address] CHUN | | Bands are included in the neutrophil count. | | + + + + + + + + | Performing | Address | City/State/Zipcode | Phone Number | | Organization | | | | + + + + + | [facility] | [address] | [place] [address] | | | SERVICES, CORE | PARK [...] + | [facility] | [address] | [place] [address] | | | SERVICES, CORE | [address] | | | + + + + + COMPLETE METABOLIC SET (NA,K,CL,CO2,BUN,CREAT,GLUC,CA,AST,ALT,BILI TOTAL,ALK PHOS,ALB,PROT TOTAL) (03/14/2018 4:26 PM) + +---------+ + + | Component | Value | Ref Range | Performed At | + +---------+ + + | GLUCOSE, PLASMA | 97 | 70 - 99 mg/dL | [facility] | | (LAB) | | | [address] | + +---------+ + + | BUN, PLASMA (LAB) | 10 | 6 - 20 mg/dL | [facility] | | | | | [address] | + +---------+ + + | CREATININE PLASMA | 0.67 | 0.60 - 1.10 mg/dL | [facility] | | (LAB) | | | SERVICES, CORE | + +---------+ + + | EGFR - | >60 | >60 mL/min | [facility] | | [place] | | | SERVICES, CORE | + +---------+ + + | EGFR NON | >60 | >60 mL/min | [facility] | | -[place] | | | SERVICES, CORE | + [...] CORE | + +---------+ + + | BALTA[facility]I [facility] | No Hemo | | [facility] [...] | + + + + + | [facility] | [address] | [place] [address] | | | SERVICES, CORE | [address] | | | + + + + + FERRITIN (03/14/2018 4:26 PM) + + + + + | Component | Value | Ref Range | Performed At | + + + + + | FERRITIN | 62Comment: Male and | 50 - 200 ng/mL | [facility] | | | Female >18 years: [...] | + + + + + | [facility] | [address] | [place] [address] | | | JONATHAN CHUN | [address] | | | + + + + + in this encounter Visit Diagnoses + + | Diagnosis | + + | RLS (restless legs syndrome) | + + | Restless legs syndrome (RLS) | + + | Abdominal pain, unspecified abdominal location | + + | Myoclonus | + + | Hypovitaminosis D | + + | Unspecified vitamin D deficiency | + +"
--- OUTSIDE RECORDS SUMMARY | ~2018-05-24 | XMS | Encounter Summary ---
Demographics + + + | Address | [address] | | | [place] [address] | + + + | Home Phone | | + + + | Preferred Language | Unknown | + + + | Marital Status | | + + + | Pentecostalism Affiliation | NON | + + + | Race | White | + + + | Ethnic Group | Not or | + + + Author + + + | Author | [facility] | + + + | Organization | [facility] | + + + | [...] Team Providers + +------+ + | Care Pizza Delivery Driver Name | Role | Phone | + +------+ + | Melvina Talley | PCP | | + +------+ + Encounter Details +--------+------+ + + + | Date | Type | Department | Care Team | Description | +--------+------+ + + + | 03/14/ | Lab | Laboratory at [facility] | | RLS (restless legs | | 2019 | | 3rd Floor [address] | | syndrome); Abdominal | | | | [address] [place], | | pain, unspecified | | | | [place] [address] | | abdominal location; | | | | [phone] | | Myoclonus; | | | | [...] | | | | | [place], | | | | | | [place] [address] | | | | | | [phone] | | | | | | | [...] | [facility] | | CONCENTRATION | [facility],[address] | | [address] - | | | [place]lon [address]ustos, [place], [place] | | [facility] | | | [address] | | | | | [phone].Semant.iouplab. | | | | | Kaleb neely [...] [facility] | [address] | [place], [place] | | | [address] - [facility] | | [address] | | + + + + + PORPHYRINS AND PORPHOBILINOGEN, URINE (03/14/2018 4:29 PM) + + + + + | Component | Value | Ref Range | Performed At | + + + + + | UROPORPHYRIN, URINE | 3 | 0 - 4 umol/mol ELEMENTARY SCHOOL SCIENCE TEACHER | [facility] | | ([facility]) | | | [address] - | | | | | [facility] | + + + + + | HEPTACARBOXYLATE | <1 | 0 - 2 umol/mol ELEMENTARY SCHOOL SCIENCE TEACHER | [facility] | | PORPHYRIN([facility]) | | | [address] - | | | | | [facility] | + + + + + | COPROPORPHYRIN I | 3 | 0 - 6 umol/mol ELEMENTARY SCHOOL SCIENCE TEACHER | [facility] | | | | | [address] - | | | | | [facility] | + + + + + | COPROPORPHYRIN III | 10 | 0 - 14 umol/mol ELEMENTARY SCHOOL SCIENCE TEACHER | [facility] | | | | [...] | | | | | determined by [facility] | | | | | Laboratories. See | | | | | Compliance Statement B: | | | | | [employer]MaxPreps/CSPerformed | | | | | by [employer],[address] | | | | | Marlon Bustos [facility] [place] | | | | | [address] | | | | | [phone].[employer]. | | | | | comKaleb MD, [...] [facility] | [address] | [place], [place] | | | [address] [place] | | [address] | | + + + + + [...] 40.5 | 35.1 - 46.3 fL | [facility] | | | | | SERVICES, [...] 0.0 | 0.0 - 0.3 % | [facility] | | | | | SERVICES, CORE | + + + + + | NRBC# | 0.00 | 0.00 - 0.02 K/cu mm | [facility] | | | | | SERVICES, [...] | 1.80 - 7.70 K/cu mm | [facility] | | | | | SERVICES, CORE | + + + + + | LYMPHOCYTE # | 3.66 | 1.00 - 4.80 K/cu mm | [facility] | | | | | SERVICES, CORE | + + + + + | MONOCYTE # | 0.50 | 0.10 - 0.90 K/cu mm | [facility] | | | | | SERVICES, [...] | + + + + + | [facility] | [address] | [place] [address] | | | SERVICES, CORE | [address] [...] | [address] | [place] [address] | | | SERVICES, CORE | [address] | | | + + + + + COMPLETE METABOLIC SET (NA,K,CL,CO2,BUN,CREAT,GLUC,CA,AST,ALT,BILI TOTAL,ALK PHOS,ALB,PROT TOTAL) (03/14/2018 4:26 PM) + +---------+ + + | Component | Value | Ref Range | Performed At | + +---------+ + + | GLUCOSE, PLASMA | 97 | 70 - 99 mg/dL | [facility] | | (LAB) | | | [...] >60 mL/min | [facility] | | [place] | | | SERVICES, CORE | + +---------+ + + | EGFR NON | >60 | >60 mL/min | [facility] | | -[facility] | | | SERVICES, CORE | + [...] | + + + + + | [facility] | [address] | [place] [address] | | | SERVICES, CORE | [address] | | | + + + + + FERRITIN (03/14/2018 4:26 PM) + + + + + | Component | Value | Ref Range | Performed At | + + + + + | FERRITIN | 60Comment: Male and | 50 - 200 ng/mL | [facility] | | | Female >18 years: [...] [facility] | [address] | [place] [address] | | | JONATHAN CHUN | NATASHA [...]
--- OUTSIDE RECORDS SUMMARY | ~2018-05-24 | XMS | Encounter Summary ---
Demographics + + + | Address | [address] | | | [place] [address] | + + + | Home Phone | | + + + | Preferred Language | Unknown | + + + | Marital Status | | + + + | Buddhism Affiliation | NON | + + + | Race | White | + + + | Ethnic Group | Not or | + + + Author + + + | Author | [facility] | + + + | Organization | [facility] | + + + | Address [...] + +------+ + | Care Client Support Manager Name | Role | Phone | [...] | | | | without | | [place], [place] | | | | | status | | [address] | | | | | epilepticus | | Phone: | | | | | Procedures | | [phone] | | | | | [place] NEW | | Fax: | | | | | PATIENT | | [phone] | | | | | LEVEL V [place] | | | | | | | [...] (Primary | | 2019 | Visit | [facility] | [address] | Dx); RLS (restless | | | | Healing [address] | [place], [place] | legs syndrome); | | | | [address] Mail Code: | [address] | Abdominal pain, | | | | [facility] | [phone] | unspecified | | | | Health [facility] Healing, | | abdominal location; | | | | 8th floor [place], | | Hypovitaminosis D | | | | [place] [address] | | | | | | [phone] | | | +--------+---------+ + + + [...] RN - 03/14/2018 2:35 PM PSTLVM with [facility] to push M RI from 05/06/2013 to [facility] Keon Shrestha MD - 03/14/2018 2:35 PM PSTFormatting of th is note may be different from the original. [facility] NEUROLOGY CLINIC Consultation Visit Today's [...] the patient. HPI: She was seen at [facility] on 12/09/2017 by neurology resident [...] multiple neurologists; saw Dr Nguyen Prince at [facility] in 2013 most recently who suspected myoclonus. Per patient, she had an EEG which captured t hem and was told that the EEG was normal (work-up done in [place], [place]). She was not started on medications, but referred to [facility] neurology for further evaluation/treatment options. 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 She had prior MRI's done at [facility], 04/2013; will request imaging. Her examination [...] consistent with her episodic worsening, could con stockkeeper repeating this testing in the future. She [...] Review prior MRI brain from 04/2013 - [facility] in 5 months Orders Placed This Encounter FERRITIN PORPHYRINS AND PORPHOBILINOGEN, URINE ALA, URINE COMP METABOLIC SET [[id number]] CBC, WITH DIFFERENTIAL [[id number]] VITAMIN D, 25-HYDROXY, SERUM [[id number]] levETIRAcetam 750 mg oral tablet I spent 75 minutes with the patient during the visit. More than half of the visit was spent counseling the patient. Keon Gerber MD Neurology Department [facility] [place] Pager [phone] in this encounter Plan of Treatment +--------+---------+ + + + | Date | Type | Specialty | Care Team | Description | +--------+---------+ + + + | 06/11/ | Office | Gastroenterology | Vicki Miller MD | | | 2018 | Visit | | [address] | | | | | | Natasha Christopher [place], | | | | | | [place] [address] | | | | | | [phone] | | | | | | | [...] | [facility] | | CONCENTRATION | [facility],[address] | | [address] - | | | Fidencio Bustos, [facility] | | INTFC | | | [address] | | | | | [phone].[employer]. | | | | | Kaleb neely [...] [facility] | [address] | [place], [place] | | | UNIV PTH - INTFC | | [address] | | + + + + + PORPHYRINS AND PORPHOBILINOGEN, URINE (03/14/2018 4:29 PM) + + + + + | Component | Value | Ref Range | Performed At | + + + + + | UROPORPHYRIN, URINE | 3 | 0 - 4 umol/mol SHANK PINNER | [facility] | | ([facility]) | | | UNIV PTH - | | | | | INTFC | + + + + + | HEPTACARBOXYLATE | <1 | 0 - 2 umol/mol SHANK PINNER | [facility] | | PORPHYRIN([facility]) | | | UNIV PTH - | | | | | INTFC | + + + + + | COPROPORPHYRIN I | 3 | 0 - 6 umol/mol SHANK PINNER | [facility] | | | | | UNIV PTH - | | | | | INTFC | + + + + + | COPROPORPHYRIN III | 10 | 0 - 14 umol/mol SHANK PINNER | [facility] | | | | [...] Statement B: | | | | | [employer]CSPerformed | | | | | by [employer],[address] | | | | | Sterlingclaudette Bustos, [facility] [place] | | | | | [address] | | | | | [phone].[employer]. | | | | | [facility] MD, | | | | | Lab. [...] [facility] | [address] | [place], [place] | | | UNIV PTH - INTFC | | [address] | | + + + + + [...] | + + + + + | [facility] | [address] | [place] [address] | | | JONATHAN CHUN | NATASHA [...] >60 mL/min | [facility] | | SOLOMON ISLANDER | | | SERVICES, CORE | + +---------+ + + | EGFR NON | >60 | >60 mL/min | [facility] | | -[place] ISLANDER | | | SERVICES, CORE | + [...] + + | [facility] | [address] [facility] [facility] | [place] [address] | | | SERVICES, CORE | NATASHA [...] | + + + + + | [facility] | [address] | [place] [address] | | | JONATHAN CHUN | NATASHA [...]
--- OUTSIDE RECORDS SUMMARY | ~2018-05-24 | XMS | Encounter Summary ---
Demographics + + + | Address | [address] | | | [place] [address] | + + + | Home Phone | | + + + | Preferred Language | Unknown | + + + | Marital Status | | + + + | Religion Affiliation | NON | + + + | Race | White | + + + | Ethnic Group | Not or | + + + Author + + + | Author | [facility] | + + + | Organization | [facility] | + + + | [...] Team Providers + +------+ + | Care Auto Tune Up Mechanic Name | Role | Phone | + +------+ + | Melvina Talley | PCP | | + +------+ + Encounter Details +--------+ + + + + | Date | Type | Department | Care Team | Description | +--------+ + + + + | 03/14/ | MyChart | Neurology at | Keon Gerber, | RE:Labs | | 2019 | Encounter | [facility] & | MD [address] | | | | | [address] | [place], [place] | | | | | [address] Mail Code: | [address] | | | | | [facility] | [phone] | | | | | Health and Healing, | | | | | | [address] [facility], | | | | | | [place] [address] | | | | | | [phone] | | | +--------+ + + + [...] | | 2019 | Visit | | [address] | | | | | | Ceci Christopher [place], | | | | | | [place] [address] | | | | | | [phone] | | | | | | | | +--------+---------+ + + + as of this encounter Visit Diagnoses Not on filein this encounter"
--- OUTSIDE RECORDS SUMMARY | ~2018-05-24 | XMS | Encounter Summary ---
Demographics + + + | Address | [address] | | | [place] [address] | + + + | Home Phone | | + + + | Preferred Language | Unknown | + + + | Marital Status | | + + + | Yazidi Affiliation | NON | + + + | Race | White | + + + | Ethnic Group | Not or | + + + Author + + + | Author | [facility] | + + + | Organization | [facility] | + + + | [...] Team Providers + +------+ + | Care Belt Worker Name | Role | Phone | + +------+ + | Melvina Talley | PCP | | + +------+ + Encounter Details +--------+ + + + + | Date | Type | Department | Care Team | Description | +--------+ + + + + | 03/14/ | MyChart | Neurology at | Keon Gerber, | RE:Labs | | 2019 | Encounter | [facility] & | MD [address] | | | | | [address] | [place], [place] | | | | | [address] Mail Code: | [address] | | | | | [facility] | [phone] | | | | | Health and Healing, | | | | | | [address] [facility], | | | | | | [place] [address] | | | | | | [phone] | | | +--------+ + + + [...] | | 2019 | Visit | | [address] | | | | | | Ceci Christopher [place], | | | | | | [place] [address] | | | | | | [phone] | | | | | | | | +--------+---------+ + + + as of this encounter Visit Diagnoses Not on filein this encounter"
--- OUTSIDE RECORDS SUMMARY | ~2018-05-24 | XMS | Clinical Summary ---
Demographics + + + | Address | [address] | | | [place] [address] | + + + | Home Phone | | + + + | Preferred Language | Unknown | + + + | Marital Status | | + + + | Gnosticism Affiliation | NON | + + + | Race | White | + + + | Ethnic Group | Not or | + + + Author + + + | Author | [facility] | + + + | Organization | [facility] | + + + | Address [...] Team Providers + +------+ + | Care Tower Watchman Name | Role | Phone | + +------+ + | Melvina TalleyP | PP | | + +------+ + Source Comments ANSHU is fully live on both EpicCare Ambulatory and EpicCare InPatient.[facility] Allergies + + + + + + [...] | | | | | Natasha Christopher [place], | | | | | | [place] [address] | | | | | | [phone] | | | | | | | [...] | 3 | 0 - 4 umol/mol SHELLS INSPECTOR | [facility] | | ([facility]) | | | UNIV PTH - | | | | | INTFC | + + + + + | HEPTACARBOXYLATE | <1 | 0 - 2 umol/mol SHELLS INSPECTOR | [facility] | | PORPHYRIN([facility]) | | | UNIV PTH - | | | | | INTFC | + + + + + | COPROPORPHYRIN I | 3 | 0 - 6 umol/mol SHELLS INSPECTOR | [facility] | | | | | UNIV PTH - | | | | | INTFC | + + + + + | COPROPORPHYRIN III | 10 | 0 - 14 umol/mol SHELLS INSPECTOR | [facility] | | | | [...] | | | | | determined by [employer] | | | | | Laboratories. See | | | | | Compliance Statement B: | | | | | [employer]/CSPerformed | | | | | by Private Practice,[address] | | | | | Marlon Bustos [facility] | | | | | [address] | | | | | [phone].[employer]. | | | | | Kaleb neely [...] [facility] | [address] | [place], [place] | | | UNIV PTH - INTFC | | [address] | | + + + + + [...] | [facility] | | CONCENTRATION | [facility],[address] | | [address] - | | | Marlon Akash, [facility] | | INTFC | | | [address] | | | | | [phone].[employer]. | | | | | Kaleb neely [...] [facility] | [address] | [place], [place] | | | UNIV PTH - INTFC | | [address] | | + + + + + CBC AND AUTO DIFF (03/14/2018 4:26 PM) + + + + + | Component | Value | Ref Range | Performed At | + + + + + | WHITE CELL COUNT | 10.53 | 3.50 - 10.80 K/cu mm | [facility] | | | | | [...] 40.5 | 35.1 - 46.3 fL | [facility] | | | | | SERVICES, CORE | + + + + + | PLATELET COUNT | 382 | 150 - 400 K/cu mm | [facility] | | | | | SERVICES, CORE | + + + + + | MPV | 10.2 | 9.7 - 12.3 fL | [facility] | | | | | [...] 4.7 | 3.5 - 9.0 % | [facility] | | | | | SERVICES, CORE | + + + + + | EOS % | 3.4 (H) | 1.0 - 3.0 % | [facility] | | | | | SERVICES, CORE | + + + + + | BASO % | 0.1 | 0.0 - 2.0 % | [facility] | | | | | SERVICES, CORE | + + + + + | IG% | 0.4Comment: Increased | 0.0 - 1.0 % | [facility] | | | immature granulocytes | [...] | + + + + + | [facility] | [address] | [place] [address] | | | ADIEL, JONATHAN | [address] | | | + + + + + VITAMIN D, 25-HYDROXY, SERUM (03/14/2018 4:26 PM) + + + + + | Component | Value | Ref Range | Performed At | + + + + + | VITAMIN D 25 HYDROXY | 18.6 (L) | 30 - 80 ng/mL | [facility] | | | | | [...] | + + + + + | [facility] | [address] | [place] [address] | | | JONATHAN CHUN | NATASHA [...] >60 mL/min | [facility] | | SURINAMESE | | | SERVICES, CORE | + +---------+ + + | EGFR NON | >60 | >60 mL/min | [facility] | | -SURINAMESE | | | SERVICES, CORE | + [...] | PLASMA (LAB) | | | ADIEL, [facility] | + +---------+ + + | ALBUMIN, [...] Interpretive Information: <60 mL/min/1.73 sq | SERVICES, [facility] | | m Chronic Kidney Disease <15 [...] [facility] | [address] | [place] [address] | | | SERVICES, CORE | PARK [...] | + + + + + | [facility] [employer] | [address] | [place] [address] | | | ADIEL, JONATHAN | [address] [...] | | | + +--------+ +--------+-------+---------+ | BUS REPAIR SUPERVISOR MEDICAID | BUS REPAIR SUPERVISOR | xxxxxxxx | Medica | | | | | [place] | | id | | | | | [place] | | | | | + +--------+ +--------+-------+---------+ | BUS REPAIR SUPERVISOR MEDICAID | BUS REPAIR SUPERVISOR | xxxxxxxx | Medica | | [...] | 1980 | [phone] | [place] [address] | | | paramjit | | [phone] | | + +--------+ +--------+ + +
--- OUTSIDE RECORDS SUMMARY | ~2018-05-24 | XMS | Clinical Summary ---
Demographics + + + | Address | [address] | | | [place] [address] | + + + | Home Phone | | + + + | Preferred Language | Unknown | + + + | Marital Status | | + + + | Pentecostal Affiliation | Unknown | + + + | Race | Unknown | + + + | Ethnic Group | Unknown | + + + Author + + + | Author | [facility] | + + + | Organization | [facility] [employer] | + + + | Address | Unknown | + + + | Phone | Unavailable | + + + Support + + +---------+ + | Name | Relationship | Address | Phone | + + +---------+ + | Edmond Sweeney | ECON | Unknown | | + + +---------+ + Care Team Providers + +------+ + | Care Site Head Name | Role | Phone | + +------+ + | Gerri Melvina SYRUP MIXER ASSISTANT | PP | | + +------+ + [...] +------+-------+ + | MEDICAID | [place] | [id number] | | | [address] | | | N | | | | [place] | | | [place] | | | | [address] | | | DIRECTOR PRIVATE [employer]IC [employer]ER[employer] AGENCY | | | | | + +--------+ [...] | | | paramjit | | | [phone] | [address] | + +--------+ +--------+ + +
--- OUTSIDE RECORDS SUMMARY | ~2018-05-24 | XMS | Encounter Summary ---
Demographics + + + | Address | [address] | | | [place] [address] | + + + | Home Phone | | + + + | Preferred Language | Unknown | + + + | Marital Status | | + + + | Pentecostal Affiliation | NON | + + + | Race | White | + + + | Ethnic Group | Not or | + + + Author + + + | Author | [facility] | + + + | Organization | [facility] | + + + | Address [...] Team Providers + +------+ + | Care Farm Management Teacher Name | Role | Phone | + +------+ + | Melvina Talley | PCP | | + +------+ + Encounter Details +--------+ + + + + | Date | Type | Department | Care Team | Description | +--------+ + + + + | 05/07/ | MyChart | Neurology at | Keon Gerber, | Vitamin D | | 2019 | Encounter | [facility] & | MD [address] Lilly | | | | | [address] | [place], [place] | | | | | [address] Mail Code: | [address] | | | | | [facility] | [phone] | | | | | Health and Healing, | | | | | | [address] [facility], | | | | | | [place] [address] | | | | | | [phone] | | | +--------+ + + + [...] | | | | | Ceci Christopher [place], | | | | | | [place] [address] | | | | | | [phone] | | | | | | | | +--------+---------+ + + + as of this encounter Visit Diagnoses Not on filein this encounter"
[~2018-05-24 22:15] MED LIST changes: +KEFLEX500 MG PO; +KEPPRA750 MG PO
--- OUTSIDE RECORDS SUMMARY | 2018-05-24 22:18 | XMS ---
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 [place] has no Care Guidelines for this patient. Wolf VISIT COUNT (12 MO.) 1 [facility] 3 ROBERTO Moncada TOTAL 4 NOTE: Visits indicate total known visits. ED/UCC VISIT TRACKING (12 MO.) 05/24/2018 22:16 [facility] TYPE: Emergency COMPLAINT: - POSS OVERDOSE 03/26/2018 17:47 [facility] TYPE: Emergency COMPLAINT: - POSS ABD ABSCESS DIAGNOSES: - Essential (primary) hypertension - Other therapy manager (current) drug therapy - Personal history of nicotine dependence - Allergy status to penicillin - Cutaneous abscess of abdominal wall 12/09/2017 17:36 [facility] TYPE: Emergency DIAGNOSES: 39304. l side pain 95625. Other generalized epilepsy and epileptic syndromes, not intractable, without status epilepticus 12/02/2017 20:35 [facility] TYPE: Emergency COMPLAINT: - POSS ABSCESS DIAGNOSES: - Personal history of nicotine dependence - Other therapy manager (current) drug therapy - Hypertensive chronic kidney disease with stage 1 through stage 4 chronic kidney disease, or unspecified chronic kidney disease - Chronic kidney disease, stage 1 - Allergy status to penicillin - Chondrocostal junction syndrome [[place]] INPATIENT VISIT TRACKING (12 MO.) No inpatient visits to display in this time frame [email or web address]
[2018-05-24] MEDS ORDERED: ZOLPIDEM TARTRA10 MG PO (22:29)
--- NOTE | 2018-05-27 13:52 | EKG ---
[facility] [address] [place], [place] [address] Signed Normal sinus rhythm Prolonged QT Abnormal ECG No previous ECGs available Confirmed by IZABELA TSE MD ([id number]) on 05/27/2018 1:52:41 PM Electronically Signed By: IZABELA TSE MD 05/27/18 1352 PATIENT NAME: ESTELLA AMADOR Electrocardiogram DATE OF : 76 PHYSICIAN: IZABELA TSE MD REPORT #: [id number] REPORT IS CONFIDENTIAL AND NOT TO BE RELEASED WITHOUT AUTHORIZATION
== END 2018-05-25 03:12 | disposition home or self-care (01) ==
LOC: ED 22:15
DX: R10.9 Unspecified abdominal pain (principal); G89.29 Other chronic pain; R11.2 Nausea with vomiting, unspecified; R41.0 Disorientation, unspecified; I12.9 Hypertensive chronic kidney disease with stage 1 through stage 4 chronic kidney disease, or unspecified chronic kidney disease; N18.1 Chronic kidney disease, stage 1; Z88.0 Allergy status to penicillin; Z79.899 Other long term (current) drug therapy
CPT/HCPCS: 36415; 80053; 80176; 81001; 83735; 84443; 84703; 85025; 93005; 93010; 99285-25; G0480

== ENCOUNTER 2018-11-18 21:19 | Emergency (ER) | payer OTHER ==
[~2018-11-18] VITALS: Ht 160 cm; Wt 81.8 kg
--- OUTSIDE RECORDS SUMMARY | ~2018-11-18 | XMS | Encounter Summary ---
Demographics + + + | Address | [address] [place] [address] St. | | | [place] [address] | + + + | Home Phone | | + + + | Preferred Language | Unknown | + + + | Marital Status | | + + + | Buddhist Affiliation | NON | + + + | Race | White | + + + | Ethnic Group | Not or | + + + Author + + + | Author | [facility] | + + + | Organization | [facility] | + + + | Address | Unknown | + + + | Phone | Unavailable | + + + Support + + +---------+ + | Name | Relationship | Address | Phone | + + +---------+ + | Edmond Sweeney | ECON | Unknown | | + + +---------+ + | Kentrell Crow | ECON | Unknown | | + + +---------+ + Care Team Providers + +------+ + | Care Marble Cutter Name | Role | Phone | + +------+ + | Melvina TalleyP | PCP | | + +------+ + Encounter Details +--------+ + + + + | Date | Type | Department | Care Team | Description | +--------+ + + + + | 05/23/ | MyChart | [facility] | Agustin Skelton | New problem | | 2016 | Encounter | Center at [facility] [address] | MD Ney | | | | | [address] | | | | | | Mailcode: JAIME | | | | | | [facility] | | | | | | and Healing, | | | | | | Building , | | | | | | Floor [place], [place] | | | | | | [address] | | | | | | [phone] | | | +--------+ + + + + Social History + +-------+ +--------+------+ | Tobacco Use | Types | Packs/Day | Years | Date | | | | | Used | | + +-------+ +--------+------+ | Never Assessed | | | | | + +-------+ +--------+------+ + + + | Sex Assigned at | Date Recorded | | | | + + + | Not on file | | + + + + + + + | Job Start Date | Occupation | Industry | + + + + | Not on file | Not on file | Not on file | + + + + + + + + | Travel History | Travel Start | Travel End | + + + + + + | No recent travel history available. | + + documented as of this encounter Plan of Treatment +--------+---------+ + + + | Date | Type | Specialty | Care Team | Description | +--------+---------+ + + + | 12/08/ | Office | Neurology | Keon Gerber, | | | 2019 | Visit | | [address] | | | | | | [place], [place] | | | | | | [address] | | | | | | [phone] | | | | | | | | +--------+---------+ + + + documented as of this encounter Visit Diagnoses Not on filedocumented in this encounter"
--- OUTSIDE RECORDS SUMMARY | ~2018-11-18 | XMS | Encounter Summary ---
Demographics + + + | Address | [address] [place] [address] St. | | | [place] [address] | + + + | Home Phone | | + + + | Preferred Language | Unknown | + + + | Marital Status | | + + + | Spiritism Affiliation | NON | + + + | Race | White | + + + | Ethnic Group | Not or | + + + Author + + + | Author | [facility] | + + + | Organization | [facility] | + + + | Address | [...] Team Providers + +------+ + | Care Salon Professional Name | Role | Phone | + +------+ + | Melvina Talley | PCP | | + +------+ + Reason for Visit + + + | Reason | Comments | + + + | Pre-op evaluation | | + + + Encounter Details +--------+ + + + + | Date | Type | Department | Care Team | Description | +--------+ + + + + | 02/28/ | Telephone-S | Preoperative | | Pre-op evaluation | | 2016 | cheduled | [facility] at | | | | | | MPV | | | | | | Stay [address] [facility] | | | | | | Edson Ornelas | | | | | | Mailcode: [id number] | | | | | | [place] | | | | | | [address] [place], [place] | | | | | | [address] | | | | | | [phone] | | | +--------+ + + + + Anesthesia Record + + + + + | Procedure Name | Responsible | Anesthesia Start | Anesthesia Stop Time | | | Anesthesiologist | Time | | + + + + + | BILATERAL MAXILLARY | Avelino Young MD | 03/01/15 1034 | 03/01/15 1213 | | ANTROSTOMY, | | | | | BILATERAL ANTERIOR | | | | | ETHMOIDECTOMY, | | | | | REVISION | | | | | SEPTOPLASTY, | | | | | BILATERAL TURBINATE | | | | | OUTFRACTURE | | | | | (Bilateral Nose) | | | | + + + + + +----+---+ + + | Da | T | Event | Comment | | te | i | | | | | m | | | | | e | | | +----+---+ + + | 01 | 1 | | | | /1 | 0 | | | | 2/ | 2 | | | | 20 | 1 | | | | 16 | | | | +----+---+ + + | | 1 | Pt. Check | Prior to anesthesia start, pt. Identified, examined, chart | | | 0 | | reviewed, PARQ held, anesthetic plan made or approved by | | | 2 | | attending anesthesiologist. NPO status confirmed as appropriate | | | 1 | | for procedure Preoperative evaluation: unchanged | +----+---+ + + | | 1 | An Start | | | | 0 | | | | | 3 | | | | | 4 | | | +----+---+ + + | | 1 | Eq Check | Anesthesia machine checked Equipment verified | | | 0 | | | | | 3 | | | | | 7 | | | +----+---+ + + | | 1 | An Start | | | | 0 | Data | | | | 3 | | | | | 8 | | | +----+---+ + + | | 1 | Abx | | | | 0 | Administere | | | | 3 | d | | | | 8 | | | +----+---+ + + | | 1 | Std. Airway | | | | 0 | Mgt. | | | | 4 | | | | | 4 | | | +----+---+ + + | | 1 | Ready | | | | 0 | | | | | 5 | | | | | 8 | | | +----+---+ + + | | 1 | Incision | | | | 1 | | | | | 0 | | | | | 3 | | | +----+---+ + + | | 1 | an elaina now | Injecting local with epi | | | 1 | | | | | 0 | | | | | 3 | | | +----+---+ + + | | 1 | Surgery end | OG to suction | | | 1 | | | | | 5 | | | | | 9 | | | +----+---+ + + | | 1 | An Extubate | Neuromuscular function Intact. Pharynx suctioned. Patient obeys | | | 2 | | commands. Adequate pulmonary mechanics. | | | 0 | | | | | 7 | | | +----+---+ + + | | 1 | Anesthesia | | | | 2 | End | | | | 1 | | | | | 3 | | | +----+---+ + + +------+ | Meds | +------+ + + + No medications | on file. | + + + + + | No agents on file. | + + + + | No blood administrations on file. | + + +--------+ + + + | Type | Details | Placement | Removal | +--------+ + + + | Incisi | 03/01/15; nose; 03/01/15; 1509 | 03/01/15 0000 by Jam | 03/01/15 1509 by | | on | | SHERRI Ayoub | [place], | | | | | SHERRI | +--------+ + + + | Periph | 03/01/15; 829; Gabrielle Christianson RN ; | 03/01/15829 by | 03/01/15 1508 by | | eral | Right; Hand; 20 g; Lidocaine; | Ellie Christianson RN | [place], | | IV | Positive; 03/01/15; 1508 | | RN | +--------+ + + + | Acupun | Bilateral; forearm (P6); Seirin | 03/01/15 1331 by | 03/01/15 1501 by | | cture | pyonex P type needle; 2; | | [place], | | LDA | 03/01/15; 1501 | | RN | +--------+ + + + documented in this encounter Social History + + + +--------+ + | Tobacco Use | Types | Packs/Day | Years | Date | | | | | Used | | + + + +--------+ + | Former Smoker | Cigarettes | 1 | 15 | Quit: 01/28/2015 | + + + +--------+ + + +---+---+---+ | Smokeless Tobacco: | | | | | Never Used | | | | + +---+---+---+ + + +---------+ + | Alcohol Use | Drinks/Week | oz/Week | Comments | + + +---------+ + | No | 0 Standard drinks | 0.0 | | | | or equivalent | | | + + +---------+ + + + + | Sex Assigned at [...] + + documented as of this encounter Patient Instructions Patient Instructions Sarah Do RN - 02/28/2015 3:27 PM PST PREOPERATIVE INSTRUCTIONS Do not eat or drink anything after midnight the night before surgery. May TAKE the following medications with a sip of water on the morning of surgery: NEBIVOLOL 10 MG TABLET OMEPRAZOLE 20 MG CAPSULE,DELAYED RELEASE PREDNISONE 10 MG TABLET Do NOT take the following medications on the morning of surgery: CYCLOBENZAPRINE 10 MG TABLET LISINOPRIL 5 MG TABLET SPIRONOLACTONE 25 MG TABLET SULFAMETHOXAZOLE 800 MG-TRIMETHOPRIM 160 MG TABLET ZOLPIDEM 10 MG TABLET Unless otherwise directed by your surgeon, do not take any Aspirin, vitamin E or non-arleth roidal anti-inflammatory (NSAIDs i.e. Advil, Aleve, Ibuprofen) or herbal supplements seven d ays prior to your surgery. These drugs may interfere with normal blood clotting and may caus e excessive bleeding and bruising during or after the surgery. If you need a pain medication for general purposes, use Tylenol as directed. If you are in doubt about any medications that you are taking, please contact our office . Important Guidelines Do not shave the surgical area Do not smoke, drink alcohol or use recreational drugs for 24 hours before your surgery Do not eat any hard candy or chew gum after midnight the night before your surgery. Watch for any change in your health condition. Let your surgeon know right away if you do not feel well. Do not wear makeup, perfume, lotions or powder. Remove any nail new zealander from at least one fingernail. Do not wear any jewelry to the hospital. Wear loose, comfortable clothing. Bring the case and solution for your contact lenses or wear your glasses. Leave all your valuables at home. Allow enough travel time so you re not late for your check in for surgery. Take a bath or shower and remember to shampoo your hair using your usual hair product be fore your arrival at the hospital. Please remember to brush your teeth the night before and the morning of your procedure. Surgery Check in Locations [facility], fourth floor Surgery Check in Time: Someone from your surgeon's office or [facility] will provide you with information regarding your check in time. If you have any questions about this, pl ease contact your surgeon's office. Going Home Your surgical team will decide when you are medically ready to go home. If you are released to go home on the same day as your procedure/surgery please note the following: You will not be able to drive. You will be required to have a competent adult drive you or accompany you by taxi or pub lic transportation on the day of discharge. It is also required that you have a competent adult assist you and look after you on the first night after you have undergone regional blocks (72 hours for patients going home with regional block pump), deep sedation, and/or general anesthesia. If you have questions or concerns after you go home, call your doctor s office. If i t is after office hours, call the [facility] sandwich and drink cart operator at [phone] and ask them to page your do ctor. documented in this encounter Plan of Treatment +--------+---------+ + + + | Date | Type | Specialty | Care Team | Description | +--------+---------+ + + + | 12/08/ | Office | Neurology | Keon Gerber, | | | 2018 | Visit | | MD [address] | | | | | | [place], [place] | | | | | | [address] | | | | | | [phone] | | | | | | | | +--------+---------+ + + + documented as of this encounter Visit Diagnoses Not on filedocumented in this encounter"
--- OUTSIDE RECORDS SUMMARY | ~2018-11-18 | XMS | Encounter Summary ---
Demographics + + + | Address | [address] [place] [address] St. | | | [place] [address] | + + + | Home Phone | | + + + | Preferred Language | Unknown | + + + | Marital Status | | + + + | Muslim Affiliation | NON | + + + | Race | White | + + + | Ethnic Group | Not or | + + + Author + + + | Author | [facility] | + + + | Organization | [facility] | + + + | Address [...] Team Providers + +------+ + | Care Supervisor Electronic Coils Name | Role | Phone | + +------+ + | Melvina Talley | PCP | | + +------+ + Reason for Visit + + + | Reason | Comments | + + + | New Patient Visit | | + + + Intake Referral (Routine) + +--------+ + + + + | Status | Reason | Specialty | Diagnoses / | Referred By | Referred To | | | | | Procedures | Contact | Contact | + +--------+ + + + + | Authorized | | Otolaryngolog | Diagnoses | | [place], | | | | y | Pain in | Gerri, | Pavel Sharma MD | | | | | unspecified | Melvina T, | [address] | | | | | joint Cyst | [employer] [address] | | | | | and mucocele | ST | [place], [place] | | | | | of nose and | [id number] | [address] | | | | | nasal sinus | [place], | Phone: | | | | | Insomnia, | [place] | [phone] | | | | | unspecified | [address] | Fax: | | | | | | Phone: | [phone] | | | | | | [phone] | | | | | | | Fax: | | | | | | | [phone] | | + +--------+ + + + + Encounter Details +--------+---------+ + + + | Date | Type | Department | Care Team | Description | +--------+---------+ + + + | 06/25/ | Office | [facility] | Carmelita Craig, | Chronic ethmoidal | | 2019 | Visit | Center at [facility] [address] | PA-C [address] | sinusitis; Chronic | | | | [address] | [address] [place], [place] | maxillary sinusitis | | | | Mailcode: [id number] | [address] | | | | | [facility] | [phone] | | | | | and Healing, | | | | | | Building | | | | | | Floor [place], [place] | | | | | | [address] | | | | | | [phone] | | | +--------+---------+ + + + Social History + +-------+ +--------+------+ | Tobacco Use | Types | Packs/Day | Years | Date | | | | | Used | | + +-------+ +--------+------+ | Never Smoker | | | | | + +-------+ +--------+------+ + +---+---+---+ | Smokeless Tobacco: | | | | | Never Used | | | | + +---+---+---+ + + +---------+ + | Alcohol Use | Drinks/Week | oz/Week | Comments | + + +---------+ + | No | | | none | + + +---------+ + + + [...] + + documented as of this encounter Progress Notes Carmelita Craig PA-C - 06/25/2018 2:30 PM PDT [facility] HPI: Aniket Sweeney is a 37 y.o. female who presents to the [facility] in [facility] for Chronic rhinosinusitis. She is s/p sinus surgery (03/01/2015) with Dr. Biggs. Maria Ines garcia seen on 10/19/2015. Current symptoms include facial pressure/pain, nasal congestion, nasa l discharge, headache, loss of smell, fatigue and cough. Symptoms began 6 years ago. Sympt om severity is moderate. Improvement occurred with Saline irrigation. Additional evaluatio n has included CT scan sinuses done in 01/2015 (pre surgery), CT of the neck in 2017. She wa s seen by laryngology for symptoms of globus in 2017. She has used Astelin, saline irrigations and omeprazole. She is a daily smoker, usually abo ut 1 pack per day. She is using saline irrigations daily with budesonide as needed. She has been treated with antibiotics 4-5 times in the last 6 months. SINO NASAL OUTCOMES TEST SCORE: 77 Current Outpatient Prescriptions Medication Sig baclofen 10 mg oral tablet Take 10 mg by mouth four times daily. cyanocobalamin 1,000 mcg/mL injection solution Inject 1,000 mcg under the skin (SUBC) e very seven days. ergocalciferol (VITAMIN D2) 50,000 unit oral capsule Take 1 capsule by mouth every александр n days. FLUoxetine 10 mg oral capsule Take 10 mg by mouth once daily. hydrOXYzine 10 mg oral tablet Take 10 mg by mouth four times daily. levETIRAcetam 750 mg oral tablet Take 1 tablet by mouth two times daily. lisinopril 5 mg oral tablet Take 5 mg by mouth once daily. LORazepam 0.5 mg oral tablet Take 0.5 mg by mouth as needed for anxiety. omeprazole 20 mg oral capsule,delayed release(DR/EC) Take 20 mg by mouth every twelve h ours. ondansetron 8 mg oral tablet Take 8 mg by mouth once daily as needed. oxyCODONE (immediate release) 10 mg oral tablet Take 10 mg by mouth as needed. promethazine 12.5 mg oral tablet Take 12.5 mg by mouth four times daily as needed for n ausea/vomiting. rOPINIRole 1 mg oral tablet Take 1 mg by mouth once daily in the evening. zolpidem 10 mg oral tablet Take 10 mg by mouth once daily at bedtime as needed for slee p. The patient's New Patient History Form was reviewed with the patient. Changes and addition s, where necessary, were made and the form was scanned to the medical record. Comprehensive review of systems was negative other than as documented on this note and on the New Patient History Form. Past Medical History: Diagnosis Date At risk for colon cancer Brain lesion CKD (chronic kidney disease) Depressive disorder Fibromyalgia Fibromyalgia 2004 GERD (gastroesophageal reflux disease) HTN (hypertension) Migraine PONV (postoperative nausea and vomiting) Sleep apnea Past Surgical History Procedure Laterality Date Egd (esophagogastroduodenoscopy) Bilateral tubal ligation Tonsillectomy Sinus surgery march 01, 2015 Tubal ligation Family History Problem Relation Thyroid Mother Thyroid Sister Cancer Maternal Grandmother Colon, breast Thyroid Maternal Grandmother Tremor Neg Hx Movement Disorder Neg Hx Social History Substance Use Topics Smoking status: Never Smoker Smokeless tobacco: Never Used Alcohol use No Comment: none Allergies: Allergies Allergen Reactions Penicillin Rash Penicillins Rash PHYSICAL EXAM: General Appearance: Pleasant, well-developed, well-nourished patient, in no apparent distre ss. Mental status normal. Breathing quietly, comfortably, no stridor or wheezing. Head/Face: No skin lesions, face symmetric, sensation normal Eyes: EOMI Ears: External ears normal to inspection and palpation, canals clear, TM's intact, no middl e ear effusion. Nose: Anterior rhinoscopy reveals mucosal edema. Nasal endoscopy was indicated to better ev aluate the nose and paranasal sinuses given the patient's history and exam findings and is d etailed below. Oral Cavity/Pharynx: No masses or lesions of lips, gums, tongue, floor of mouth, buccal muc annie, hard palate or soft palate. Dentition is good. No erythema, exudate, or tonsillar jaelyn s. Posterior pharyngeal wall normal. Neck/Lymphatic: no masses or adenopathy Neurologic: CN 2-12 intact PROCEDURE: Diagnostic Nasal Endoscopy Anesthesia: Lidocaine 4% topical anesthetic was placed. Description of Procedure: A rigid endoscope was utilized to evaluate the sinonasal cavities , mucosa, sinus ostia and turbinates. Overall, signs of mucosal inflammation are noted. Al so noted are mucosal edema. The maxillary and ethmoid sinuses are patent bilaterally with n o evidence of purulence or mucostasis. RADIOGRAPHIC EVALUATION: Not done today ASSESSMENT: Chronic rhinosinusitis. We've discussed issues and options today. The risks, benefits and alternatives were discus sed and questions answered. The patient was given reassurance that there is no evidence of sinus infection noted on nasal endoscopy today. Low-grade inflammation is noted bilaterally so I have recommended restarting a course of budesonide added to saline irrigations once a day. If she is experiencing a flare in her symptoms resulting in increased facial pressure or drainage I recommended that she increase her budesonide to twice daily to avoid the need for additional antibiotic use. I also asked her to consider returning to our clinic during an acute episode so we can perform a nasal endoscopy and perhaps even an up-to-date CT scan if necessary to determine whether the symptoms are related to an acute bacterial exacerbatio n or rather a flare of inflammation. She was in agreement with this plan and will follow-up as discussed or sooner as needed. documented in this encounter Plan of Treatment +--------+---------+ + + + | Date | Type | Specialty | Care Team | Description | +--------+---------+ + + + | 12/08/ | Office | Neurology | Keon Gerber, | | | 2018 | Visit | | [address] | | | | | | [place], [place] | | | | | | [address] | | | | | | [phone] | | | | | | | | +--------+---------+ + + + documented as of this encounter Procedures + +--------+ + + + | Procedure Name | Priori | Date/Time | Associated Diagnosis | Comments | | | ty | | | | + +--------+ + + + | RI NASAL | Routin | 06/27/2018 | Chronic ethmoidal | | | ENDOSCOPY,DX | e | 6:47 AM | sinusitis Chronic | | | | | PDT | maxillary sinusitis | | + +--------+ + + + documented in this encounter Visit Diagnoses + + | Diagnosis | + + | Chronic ethmoidal sinusitis | + + | Chronic maxillary sinusitis | + + documented in this encounter"
--- OUTSIDE RECORDS SUMMARY | ~2018-11-18 | XMS | Encounter Summary ---
Demographics + + + | Address | [address] [place] [address] St. | | | [place] [address] | + + + | Home Phone | | + + + | Preferred Language | Unknown | + + + | Marital Status | | + + + | Mosque Affiliation | NON | + + + | Race | White | + + + | Ethnic Group | Not or | + + + Author + + + | Author | [facility] | + + + | Organization | [facility] | + + + | Address [...] Team Providers + +------+ + | Care Phlebotomy Manager Name | Role | Phone | + +------+ + | Melvina TalleyP | PCP | | + +------+ + Reason for Referral Diagnostic Testing (Routine) +--------+--------+ + + + + | Status | Reason | Specialty | Diagnoses / | Referred By | Referred To | | | | | Procedures | Contact | Contact | +--------+--------+ + + + + | Closed | | Radiology | Diagnoses | Buzz, | | | | | | Bilateral | Keon Alvarenga | | | | | | hand | MD [address] | | | | | | numbness | [address] | | | | | | Abnormal | [place], [place] | | | | | | brain scan | [id number] | | | | | | Myoclonus | Phone: | | | | | | Migraine | [phone] | | | | | | without | Fax: | | | | | | aura, not | [phone] | | | | | | intractable, | | | | | | | without | | | | | | | status | | | | | | | migrainosus | | | | | | | Procedures | | | | | | | MRI SPINE | | | | | | | CERVICAL WWO | | | | | | | CONTRAST | | | | | | | MA MRI, CERV | | | | | | | SPINE COMBO | | | +--------+--------+ + + + + Diagnostic Testing (Routine) +--------+--------+ + + + + | Status | Reason | Specialty | Diagnoses / | Referred By | Referred To | | | | | Procedures | Contact | Contact | +--------+--------+ + + + + | Closed | | Radiology | Diagnoses | Buzz, | | | | | | Bilateral | Keon Alvarenga, | | | | | | hand | MD [address] | | | | | | numbness | [address] | | | | | | Abnormal | [place], [place] | | | | | | brain scan | [address] | | | | | | Myoclonus | Phone: | | | | | | Migraine | [phone] | | | | | | without | Fax: | | | | | | aura, not | [phone] | | | | | | intractable, | | | | | | | without | | | | | | | status | | | | | | | migrainosus | | | | | | | Procedures | | | | | | | MRI BRAIN | | | | | | | MULTIPLE | | | | | | | SCLEROSIS | | | | | | | WWO CONTRAST | | | | | | | MA MRI | | | | | | | BRAIN COMBO | | | +--------+--------+ + + + + Reason for Visit + + + | Reason | Comments | + + + | Medication | | | management | | + + + Encounter Details +--------+ + + + + | Date | Type | Department | Care Team | Description | +--------+ + + + + | 07/02/ | Telephone | Neurology at | Keon Gerber, | Medication | | 2019 | | [facility] & | MD [address] | management | | | | Healing [address] | [place], [place] | | | | | [address] Mailcode: | [address] | | | | | [facility] | [phone] | | | | | Health and Healing, | | | | | | [facility] | | | | | | [place], [place] | | | | | | [address] | | | | | | [phone] | | | +--------+ + + + [...] | | 2018 | Visit | | [address] | | | | | | [place], [place] | | | | | | [address] | | | | | | [phone] | | | | | | | | +--------+---------+ + + + + +---------+--------+ + + | Name | Type | Priori | Associated Diagnoses | Order Schedule | | | | ty | | | + +---------+--------+ + + | MRI BRAIN MULTIPLE | Imaging | Routin | Bilateral hand | Expected: | | SCLEROSIS WWO | | e | numbness Abnormal | 07/02/2018, Expires: | | CONTRAST | | | brain scan | 08/03/2019 | + +---------+--------+ + + | MRI SPINE CERVICAL | Imaging | Routin | Bilateral hand | Expected: | | WWO CONTRAST | | e | numbness Abnormal | 07/02/2018, Expires: | | | | | brain scan | 08/03/2019 | + +---------+--------+ + + documented as of this encounter Visit Diagnoses + + | Diagnosis | + + | Bilateral hand numbness - Primary Disturbance of skin sensation | + + | Abnormal brain scan Other nonspecific abnormal result of function study of brain and | | central nervous system | + + documented in this encounter"
--- OUTSIDE RECORDS SUMMARY | ~2018-11-18 | XMS | Encounter Summary ---
Demographics + + + | Address | [address] [place] [address] St. | | | [place] [address] | + + + | Home Phone | | + + + | Preferred Language | Unknown | + + + | Marital Status | | + + + | Synagogue Affiliation | NON | + + + | Race | White | + + + | Ethnic Group | Not or | + + + Author + + + | Author | [facility] | + + + | Organization | [facility] | + + + | Address | [...] Team Providers + +------+ + | Care Dependency Case Manager Name | Role | Phone | + +------+ + | Melvina Talley | PCP | | + +------+ + Reason for Visit AUTH/CERT +--------+--------+ + + + + | Status | Reason | Specialty | Diagnoses / | Referred By | Referred To | | | | | Procedures | Contact | Contact | +--------+--------+ + + + + | | | | | | | +--------+--------+ + + + + Encounter Details +--------+ + + + + | Date | Type | Department | Care Team | Description | +--------+ + + + + | 03/01/ | Hospital | [facility] | Haroon Biggs, | | | 2015 | Encounter | STAY [address] | [place] | | | | | Vijaya Mailcode: [facility] | | | | | | [facility] | | | | | | Health and [facility], | | | | | | [address] | | | | | | [place], [place] | | | | | | [address] | | | | | | [phone] | | | +--------+ + + + + Social History + + + +--------+ + [...] + + documented as of this encounter Last Filed Vital Signs + + + + + | Vital Sign | Reading | Time Taken | Comments | + + + + + | Blood Pressure | 127/83 | 03/01/2015 2:41 PM | | | | | PST | | + + + + + | Pulse | 92 | 03/01/2015 2:41 PM | | | | | PST | | + + + + + | Temperature | 37.3 C (99.1 F) | 03/01/2015 2:41 PM | | | | | PST | | + + + + + | Respiratory Rate | 16 | 03/01/2015 2:41 PM | | | | | PST | | + + + + + | Oxygen Saturation | 95% | 03/01/2015 2:41 PM | | | | | PST | | + + + + + | Inhaled Oxygen | - | - | | | Concentration | | | | + + + + + | Weight | 93 kg (205 lb) | 03/01/2015 8:15 AM | | | | | PST | | + + + + + | Height | 160 cm (5' 3") | 03/01/2015 8:15 AM | | | | | PST | | + + + + + | Body Mass Index | 36.31 | 03/01/2015 8:15 AM | | | | | PST | | + + + + + documented in this encounter Discharge Instructions Instructions Ellie Daigle RN - 03/01/2015 Nursing Michelle hutchison Instructions General discharge instructions for same-day procedure patients: Remember that you are under the influence of medication. Do not stay alone. A responsible person should be with you. Do not drive, drink alcohol or make important personal or business decision for 24 hours . Resume normal activity and return to work when advised by your Doctor. Pain Management: Your last oral pain medication was given at: Oxycodone 5 mg at 1345 Please follow your Doctor's instructions on the medication bottle. Do not take pain medication on an empty stomach, as this may cause nausea and vomiting. Do not drive or drink alcohol while on narcotic pain medication. If you received a Peripheral Nerve Block, please take pain medication when numbing begin s to wear off or when you go to bed. This will allow for pain coverage when your nerve bloc k wears off during the night. Diet: If you do not experience nausea or vomiting resume your regular diet. Eat lightly and av oid large, high fat or highly spiced meals for 24-48 hours. Constipation can be a side effect of narcotic pain medication. Take stool softeners, in crease dietary fiber and drink plenty of water to prevent this. Wound/Dressing/Drain Care: Change your dressing according to your Doctor's instructions. You may place a bandaid o n incisional site if needed. Change bandaid daily. Call your Doctor if there is excessive bleeding, redness, swelling or drainage at the o perative site. IV Site Care Instructions: Monitor IV site for pain, redness, swelling and/or drainage. If present, call your Doct or immediately. Minor redness and/;or tenderness may be treated with warm, moist compresses for 24-48 ho urs, If the area is still red and/or tender after this, notify your Doctor. Call 911 if you experience difficulty breathing or unusual shortness of breath. Additional Home Care Instructions: Per Dr Ritchie Follow up Appointment: As scheduled A very small number of patients may have trouble voiding (emptying your bladder) after anes thesia. If you were unable to void after surgery at the surgery center and greater than 8 h ours at home has passed, still unable to void you need to visit the Emergency room. After arriving home you may receive a patient satisfaction survey from "[employer]". We sowmya pham appreciate your feedback on the survey to help us provide excellent service to you and your families. documented in this encounter Medications at Time of Discharge + + + +---------+--------+ + | Medication | Sig | Dispensed | Refills | Start | End Date | | | | | | Date | | + + + +---------+--------+ + | lisinopril 5 mg | Take 5 mg by mouth | | 0 | | | | oral tablet | once daily. | | | | | + + + +---------+--------+ + | omeprazole 20 mg | Take 20 mg by mouth | | 0 | | | | oral capsule,delayed | every twelve hours. | | | | | | release(/MIKAL) | | | | | | + + + +---------+--------+ + | zolpidem 10 mg | Take 10 mg by mouth | | 0 | | | | oral tablet | once daily at | | | | | | | bedtime as needed | | | | | | | for sleep. | | | | | + + + +---------+--------+ + documented as of this encounter Plan of Treatment +--------+---------+ + + + | Date | Type | Specialty | Care Team | Description | +--------+---------+ + + + | 12/08/ | Office | Neurology | Keon Gerber, | | | 2019 | Visit | | [address] | | | | | | [place], [place] | | | | | | [address] | | | | | | [phone] | | | | | | | | +--------+---------+ + + + documented as of this encounter Procedures + +--------+ + + + | Procedure Name | Priori | Date/Time | Associated Diagnosis | Comments | | | ty | | | | + +--------+ + + + | PROCEDURE NOTE | Routin | 03/24/2015 | | Results for this | | | e | 10:42 AM | | procedure are in the | | | | PST | | results section. | + +--------+ + + + | PROCEDURE NOTE | Routin | 03/24/2015 | | Results for this | | | e | 10:40 AM | | procedure are in the | | | | PST | | results section. | + +--------+ + + + | MAXILLARY ANTROSTOMY | Electi | 03/01/2015 | CHRONIC MAXILLARY | | | | ve | 10:37 AM | SINUSITIS, CHRONIC | | | | Surgic | PST | ETHMOIDAL SINUSITIS, | | | | al | | NASAL OBSTRUCTION, | | | | | | DEVIATED SEPTUM, | | | | | | TURBINATE | | | | | | HYPERTROPHY | | + +--------+ + + + | CARDIOLOGY | | 03/01/2015 | | Results for this | | | | 12:00 AM | | procedure are in the | | | | PST | | results section. | + +--------+ + + + | SURGICAL PATHOLOGY | Routin | 03/01/2015 | | Results for this | | | e | | | procedure are in the | | | | | | results section. | + +--------+ + + + documented in this encounter Results PROCEDURE NOTE (03/24/2015 10:42 AM PST)PROCEDURE NOTE (03/24/2015 10:40 AM PST)SURGICAL PA THOLOGY (03/01/2015) + + + + + + | Component | Value | Ref Range | Performed | Pathologist | | | | | At | Signature | + + + + + + | SURGICAL | SOURCE OF SPECIMEN:A | | [facility] | | | PATHOLOGY | Bilateral sinus | | DEPARTMENT | | | | contents Final | | OF | | | | Pathologic | | PATHOLOGY | | | | Diagnosis:Sinus | | | | | | contents, bilateral, | | | | | | curettage: - | | | | | | Mild chronic sinusitis | | | | | | with no evidence of | | | | | | increased | | | | | | eosinophils Case | | | | | | seen by:Ian | | | | | | Leyda | | | | | | M.D./Pathology | | | | | | Kaushal Garduno | | | | | | M.D./Pathologist | | | | | | Clinical History:The | | | | | | patient is a 34-year-old | | | | | | female with chronic | | | | | | sinusitis. Gross | | | | | | Description:Received is | | | | | | 1 specimen fresh in a | | | | | | container labeled with | | | | | | the patient | | | | | | name(initials AM) and | | | | | | "bilateral sinus | | | | | | contents." | | | | | | Specimen: Multiple | | | | | | simms-red, gelatinous | | | | | | pieces of tissue and | | | | | | fragments | | | | | | ofcartilage/boneSize: | | | | | | 1.8 x 0.2 x 0.2 cm | | | | | | in | | | | | | aggregateSubmitted: | | | | | | Entirely | | | | | | Cassette Index:A1, | | | | | | decalcification | | | | | | performedNN:tp | | | | | | My electronic signature | | | | | | indicates that I have | | | | | | personally reviewed | | | | | | alldiagnostic slides, | | | | | | the gross and/or | | | | | | microscopic portion of | | | | | | thisreport and | | | | | | formulated the final | | | | | | diagnosis. | | | | | | Rendering | | | | | | Diagnostician: Rachel | | | | | | Shaan | | | | | | ElizabethPathologistRajinderi | | | | | | brian Signed 03/03/2015 | | | | | | 10:45AM | | | | + + + + + + + + | Specimen | + + | | + + + + + | Narrative | Performed At | + + + | | | + + + + + + + + | Performing | Address | City/State/Zipcode | Phone Number | | Organization | | | | + + + + + | [facility] | [address] | [place] [address] | | | PATHOLOGY | [address] | | | + + + + + CARDIOLOGY (03/01/2015 12:00 AM PST) + + + | Narrative | Performed At | + + + | | | + + + documented in this encounter Visit Diagnoses Not on filedocumented in this encounter Administered Medications + +--------+ +------+------+------+ | Medication Order | MAR | Action | Dose | Rate | Site | | | Action | Date | | | | + +--------+ +------+------+------+ | oxyCODONE (immediate release) | Given | 03/01/19 | 5 mg | | | | (ROXICODONE) tablet 5-10 mg 5-10 | | 16 1:58 | | | | | mg, oral, EVERY 4 HOURS | | PM PST | | | | | NEEDED, Starting 03/01/15 at | | | | | | | 1202, Until 03/01/15 at 2118, | | | | | | | severe pain | | | | | | + +--------+ +------+------+------+ +-------+ +------+---+---+ | Given | 03/01/19 | 5 mg | | | | | 16 1:46 | | | | | | PM PST | | | | +-------+ +------+---+---+ +---+---+ | | | +---+---+ + +-------+ + +---+---+ | oxymetazoline (AFRIN) 0.05 % | Given | 03/01/19 | 2 sprays | | | | nasal spray 2 spray 2 spray, | | 16 8:35 | | | | | both nostrils, EVERY 30 MINUTES, | | AM PST | | | | | First dose on Sat03/01/15 at | | | | | | | 0830, Until Discontinued | | | | | | + +-------+ + +---+---+ +-------+ + +---+---+ | Given | 03/01/19 | 2 sprays | | | | | 16 8:20 | | | | | | AM PST | | | | +-------+ + +---+---+ +---+---+ | | | +---+---+ + + + +---------+---+---+ | scopolamine (TRANSDERM-SCOPE) | Applied | 03/01/19 | 1 patch | | | | 1.5 mg (1 mg over 3 days) 1 patch | Patch | 16 10:25 | | | | | 1 patch, transdermal, ONCE, 1 | | AM PST | | | | | dose, Ashlee 03/01/15 at 1100 | | | | | | + + + +---------+---+---+ +---+---+ | | | +---+---+ documented in this encounter
--- OUTSIDE RECORDS SUMMARY | ~2018-11-18 | XMS | Encounter Summary ---
Demographics + + + | Address | [address] [place] [address] St. | | | [place] [address] | + + + | Home Phone | | + + + | Preferred Language | Unknown | + + + | Marital Status | | + + + | Jew Affiliation | NON | + + + | Race | White | + + + | Ethnic Group | Not or | + + + Author + + + | Author | [facility] | + + + | Organization | [facility] | + + + | Address | [...] Team Providers + +------+ + | Care Distribution Tech Name | Role | Phone | + [...] + + + | Closed | | Sleep | Diagnoses | Rosalina | Mikaela Turner | | | | Medicine | Snoring | Wekayla | Med [facility] | | | | | Obesity (BMI | DAVEY Latham | [address] [facility] | | | | | 30-39.9) | [address] | [place] | | | | | Essential | [facility] | Mailcode: | | | | | hypertension | Rd | [address] | | | | | Procedures | [place], [place] | [place], [place] | | | | | SPLIT | [address] | [address] | | | | | NIGHT PSG | Phone: | Phone: | | | | | [place] | [phone] | [phone] | | | | | POLYSOMNOGRA | Fax: | Fax: | | | | | PHY W/CPAP | [phone] | [phone] | +--------+--------+ + + + + Encounter Details +--------+ + + + + | Date | Type | Department | Care Team | Description | +--------+ + + + + | 03/27/ | Seismic Prospecting Supervisor | Sleep Disorder | Rosalina, | Snoring (Primary | | 2017 | | [facility] at [place] | Francesco Latham PA-C | Dx); Obesity (BMI | | | | [facility] | [address] | 30-39.9); Essential | | | | [address] | [address] [place], | hypertension | | | | [facility] Mailcode: | [place] [address] | | | | | [address] [place] | [phone] | | | | | [facility] | | | | | | [address] [place], [place] | | | | | | [address] | | | | | | [phone] | | | +--------+ + + + [...] | | 2018 | Visit | | [address] | | | | | | [place], [place] | | | | | | [address] | | | | | | [phone] | | | | | | | | +--------+---------+ + + + documented as of this encounter Results SPLIT NIGHT PSG (06/04/2016) + + + | Impressions | Performed At | + + + | Diagnostic Polysomnography Interpretation Impression: Mild | [facility] | | obstructive sleep apnea worse during REM sleep (REM apnea-hypopnea | DEPARTMENT OF | | index was 25.5). The apnea-hypopnea index (AHI) was 13.5, minimum | SLEEP STUDIES | | oxygen saturation was 88% and there were 0.2 minutes spent with oxygen | | | saturation of 88% or lower. Sleep was mildly disrupted by sleep | | | disordered breathing. EKG was unremarkable. EMG was | | | unremarkable. PLM index was 0.0 and PLM index with arousal was 0.0. | | | Recommendations: 1. Auto PAP, Minimum = 5, Maximum = 15 vs | | | attended study based on clinical presentation of symptoms. | | | 2. Avoid supine sleep. Consider positional restriction devices such | | | as REMatee or Zzoma belts which purchased online. 3. Some | | | patients with failure of CPAP or mild sleep apnea may have additional | | | medical, dental or surgical treatment options depending on clinical | | | correlation. 4. Return to Sleep Disorders Program to discuss these | | | results with Dr. Ma. | | + + + + +---------+ + + | Performing | Address | City/State/Zipcode | Phone Number | | Organization | | | | + +---------+ + + | [facility] | | | | | SLEEP STUDIES | | | | + +---------+ + + | [facility] | | [place], [place] | | | SLEEP STUDIES | | | | + +---------+ + + documented in this encounter Visit Diagnoses + + | Diagnosis | + + | Snoring - Primary Other dyspnea and respiratory abnormality | + + | Obesity (BMI 30-39.9) Obesity, unspecified | + + | Essential hypertension | + + documented in this encounter"
--- OUTSIDE RECORDS SUMMARY | ~2018-11-18 | XMS | Encounter Summary ---
Demographics + + + | Address | [address] [place] [address] St. | | | [place] [address] | + + + | Home Phone | | + + + | Preferred Language | Unknown | + + + | Marital Status | | + + + | Yarsani Affiliation | NON | + + + | Race | White | + + + | Ethnic Group | Not or | + + + Author + + + | Author | [facility] | + + + | Organization | [facility] | + + + | Address | [...] Team Providers + +------+ + | Care Winery Cellar Hand Name | Role | Phone | + +------+ + | Melvina TalleyP | PCP | | + +------+ + Encounter Details +--------+ + + + + | Date | Type | Department | Care Team | Description | +--------+ + + + + | 05/08/ | MyChart | [facility] | Haroon Biggs, | RE: Bad smell in my | | 2016 | Encounter | [facility] at [facility] [address] [facility] | nose | | | | [address] | | | | | | Mailcode: [address] | | | | | | [facility] | | | | | | and [place], | | | | | | Building , | | | | | | [place], [place] | | | | | | [address] | | | | | | [phone] | | | +--------+ + + + [...] | 12/08/ | Office | Neurology | Buzz, Nicolas, | | | 2019 | Visit | | [address] | | | | | | [place], [place] | | | | | | [address] | | | | | | [phone] | | | | | | | | +--------+---------+ + + + documented as of this encounter Visit Diagnoses Not on filedocumented in this encounter"
--- OUTSIDE RECORDS SUMMARY | ~2018-11-18 | XMS | Encounter Summary ---
Demographics + + + | Address | [address] [place] [address] St. | | | [place] [address] | + + + | Home Phone | | + + + | Preferred Language | Unknown | + + + | Marital Status | | + + + | Roman Catholic Affiliation | NON | + + + | Race | White | + + + | Ethnic Group | Not or | + + + Author + + + | Author | [facility] | + + + | Organization | [facility] | + + + | Address [...] Team Providers + +------+ + | Care Adobe Cq Developer Name | Role | Phone | + [...] Closed | | Radiology | Diagnoses | Gloria, | Rad Ct Scan | | | | | Odynophagia | Lucy | s [address] | | | | | Procedures | DAVEY Zaidi | Maynor Sandhu | | | | | CT NECK | [address] | | | | | SOFT TISSUE | Ave | Mailcode: | | | | | [address]AST | [facility] [place] [place] | [address] [facility] | | | | | IN CT NECK | [address] | Hospital | | | | | TISSUE | Phone: | [place], [place] | | | | | CONTRAST | [phone] | [address] | | | | | | Fax: | Phone: | | | | | | [phone] | [phone] | | | | | | | Fax: | | | | | | | [phone] | +--------+--------+ + + + + Reason for Visit + + + | Reason | Comments | + + + | Follow-up visit | | + + + Consultation (Routine) +--------+--------+ + + + + | Status | Reason | Specialty | Diagnoses / | Referred By | Referred To | | | | | Procedures | Contact | Contact | +--------+--------+ + + + + | Closed | | Otolaryngolog | | | Ent | | | | y | | Gerri, | Laryngology | | | | | | Melvina T, | [facility] [address] | | | | | | [employer] [address] | | | | | | | [place], [place] | | | | | | [id number] | [address] | | | | | | [place], | Phone: | | | | | | [place] | [phone] | | | | | | [address] | Fax: | | | | | | Phone: | [phone] | | | | | | [phone] | | | | | | | Fax: | | | | | | | [phone] | | +--------+--------+ + + + + Encounter Details +--------+---------+ + + + | Date | Type | Department | Care Team | Description | +--------+---------+ + + + | 05/30/ | Office | Otolaryngology | Gloria, | Odynophagia (Primary | | 2017 | Visit | Laryngology Services | Lucy Zaidi PA-C | Dx); Globus | | | | at [facility] [address] | [address] | sensation; Laryngeal | | | | [address] [place], | [place], [place] | hyperfunction; | | | | [place] [address] | [address] | Muscle tension | | | | [phone] | [phone] | dysphonia; | | | | | | Esophageal | | | | | | dysmotility | +--------+---------+ + + + Social History + + + +--------+ + | Tobacco Use | Types | Packs/Day | Years | Date | | | | | Used | | + + + +--------+ + | Current Every Day | Cigarettes | 1 | 20 | Quit: 01/28/2015 | | Smoker | | | | | + + + +--------+ + + +---+---+---+ | Smokeless Tobacco: | | | | | Never Used | | | | + +---+---+---+ + + +---------+ + | Alcohol Use | Drinks/Week | oz/Week | Comments | + + +---------+ + | No | 0 Standard drinks | 0.0 | none | | | or equivalent | | [...] + + + | Blood Pressure | - | - | | + + + + + | Pulse | - | - | | + + + + + | Temperature | - | - | | + + + + + | Respiratory Rate | - | - | | + + + + + | Oxygen Saturation | - | - | | + + + + + | Inhaled Oxygen | - | - | | | Concentration | | | | + + + + + | Weight | 86.2 kg (190 lb) | 05/30/2016 11:36 AM | | | | | PDT | | + + + + + | Height | 160 cm (5' 3") | 05/30/2016 11:36 AM | | | | | PDT | | + + + + + | Body Mass Index | 33.66 | 05/30/2016 11:36 AM | | | | | PDT | | + + + + + documented in this encounter Patient Instructions Patient Instructions Guadalupe Faulkner MA - 05/30/2016 11:00 AM PDTThank you for choosing [facility] Department of Otolaryngology for your health care needs. If you need to speak to an ENT physician after normal business hours, please call [phone] and ask to have the ENT phys richa vocational nursing instructor paged. 1. Get the CT scan of your neck. You will likely need to schedule this in 2 weeks when you come back to [place] 2. I will call you with the results of your CT. I want to monitor your swallowing symptoms over the next few months and if not changing or getting worse we may need to consider lookin g at your throat and upper esophagus in the operating room. 3. Follow-up with me in 3 months 4. We will try to get authorization for voice therapy for your apt in 2 weeks. We will arra nge for 2 sessions of therapy when you come back in 3 months documented in this encounter Progress Notes Guadalupe Faulkner MA - 05/30/2016 11:00 AM PDTlaryngoscopy procedure was performed using the following instruments: Description #1: laryngoscope Serial ID #1: [id number] Lucy Martino PA-C - 05/30/2016 11:00 AM PDTFormatting of this note might be different from the origina l. PATIENT NAME:Aniket Kendall MR#: [id number] : 1980 REFERRING PROVIDER: TAMEKA Yin [facility] [address] [place] [address] PRIMARY CARE PROVIDER: TAMEKA Mistry CLINIC: [facility] REASON FOR FOLLOW-UP: Chief Complaint Patient presents with Follow-up visit HPI: Aniket Kendall is a 35 y.o. female who was last seen at the [facility] for pain upon swallowing liquids, globus sensation and dysphagia wi th raw vegetables and rice and found to have a normal oropharyngeal swallow with mild esopha geal dysmotility and reflux demonstrated with provocation measures and laryngeal hyperfuncti on with an otherwise normal laryngoscopy other than mild laryngeal edema consistent with her persistent smoking and a vallecular lesion of unclear etiology. It was recommended that garth zaidi return for voice therapy to address her laryngeal hyperfunction and globus sensation. She was provided with strategies to help manage her esophageal dysmotility. It was recommended s he undergo an upper endoscopy given her history of gastric ulcer and odynophagia. She returns today reporting the discomfort with swallowing and her voice "have gotten worse ". People frequently ask her if she is sick now. She feels she runs out of air while talking , but does not experience shortness of breath with exertion. she reports having pulmonary fu nction testing done and was told these were normal. She denies pain while talking. She paid more attention to her symptoms and realized if she turns her head to the right or the left w hile drinking liquids it will cause pain at the level of the thyrohyoid space that radiates to the ear for about 10-15 seconds. This continues to only occur with liquids, she can swall ow solids and dry swallows without pain. She endorses progressive trouble swallowing. She serna s food hang up more frequently, reporting it happening during every meal now. Sometimes this happens multiple times during a meal which frustrates her and she will just give up on eati ng. She is continuing to work on weight loss prior to her wedding in August and has experience d a 3lb intentional weight loss since her last visit. There is not a particular food that se ems to cause this more frequently. She reports food getting stuck for a few seconds. She is unable to take a sip of water to try to get the food down as it will come back up. She had the upper endoscopy 04/19/16. She reports discussing the results and her reflux with her [facility] provider who recommended daily apple cider vinegar as she was experiencing hunger af ter meals that was felt to be actually reflux. She notes this has improved since starting th e apple cider vinegar.She continues to take 20mg omperazole BID. She reports chronic abdomin al pain that has improved with cutting gluten out of her diet recently. She has an appointme nt for her sleep study this evening given her symptoms of apnea appreciated at her last visi t. When asked about her interest in quitting smoking she states "it's time to quit". She is th e only one who smokes in her family and is tired of no one wanting to wait for her to smoke when they go out to do stuff together. She previously tried Wellbutrin and patches with no e ffect and skin reaction. She reports a history of headaches for which she takes ibuprofen and tylenol. She says this is the only thing that really controls her headaches, but her human resources support specialist wants to get her off of these due to her chronic kidney disease. They are unclear what the headaches are due to. She says she has multiple lesions found previously on MRI which brought MS into [facility] n. She has undergone 5 prior spinal taps which were all inconclusive and she didn't want to keep going through them. VOCAL DEMANDS: Unchanged from previous visit. PMHx: Past Medical History: Diagnosis Date At risk for colon cancer CKD (chronic kidney disease) Depressive disorder Fibromyalgia Fibromyalgia 2004 GERD (gastroesophageal reflux disease) HTN (hypertension) Migraine PONV (postoperative nausea and vomiting) Sleep apnea SURGHx: Past Surgical History Procedure Laterality Date Egd (esophagogastroduodenoscopy) Bilateral tubal ligation Tonsillectomy Sinus surgery march 01, 2015 Tubal ligation ALLERGIES: Allergies Allergen Reactions Penicillin Rash MEDICATIONS: Current Outpatient Prescriptions Medication Sig cyclobenzaprine 10 mg oral tablet Take by mouth. ERGOCALCIFEROL, VITAMIN D2, (VITAMIN D ORAL) Take 5,000 Units by mouth. lisinopril 5 mg oral tablet Take 5 mg by mouth once daily. Nebivolol (BYSTOLIC) 10 mg oral tablet Take 10 mg by mouth once daily. omeprazole 20 mg oral capsule,delayed release(DR/EC) Take 20 mg by mouth every twelve h ours. oxyCODONE CR 10 mg oral tablet extended release 12 hr Take 10 mg by mouth every twelve hours. spironolactone 25 mg oral tablet Take 25 mg by mouth two times daily. zolpidem 10 mg oral tablet Take 10 mg by mouth once daily at bedtime as needed for slee p. No current facility-administered medications for this visit. EXAMINATION: Ht 1.6 m (5' 3") | Wt 86.2 kg (190 lb) | BMI 33.66 kg/(m^2) Gen: She is a 35 y.o. female. She is awake, alert and comfortable with the examination. Her weight is elevated. She is normocephalic. Ears: The pinnae are normal. External auditory canals show minimal cerumen bilaterally. The tympanic membranes are clear with normal anatomic landmarks and an aerated middle ear sp mike. Nose: The nasal dorsum is mildly deviated to the right. Crusting around the anterior nasal vestibule bilaterally. The mucosa is pink and there are no lesions or masses noted. There i s no significant nasal obstruction noted. Face: There are no worrisome lesions noted of the face or head. Salivary Glands: The salivary glands are soft and show no lesions or masses within the par otid or submandibular glands bilaterally. There is no obvious obstruction of Stensen's or W eugenia's ducts bilaterally. Oropharynx: Normal lips and oral competence are noted. The dentition is fair. The mucosa is dry and pale, but shows no lesions or masses. The tonsils are absent and the fossae amrik w no lesions. Neck: The neck is atraumatic. There is no lymphadenopathy noted in the anterior, posterior , digastric or submental triangles. The thyroid is palpable, but not enlarged or tender. Chest: Chest rise is symmetric and there is no audible wheezing, stridor or wet vocal qual ity. Neuro: Extraoccular movements are grossly intact. There is symmetric movement noted of th e face. Hearing is grossly intact. Palatal elevation is symmetric and full. Tongue protru jamar is midline. VOICE EVALUATION: Perceptual voice evaluation demonstrates dysphonia which is mild. She l acks breath support with glottal flores. The pitch is appropriate for a female and shows normal range. Vocal intensity is appropriate and shows normal upper range. There is 2+ tightness appreciated. There is no tremor noted with sustained vowel phonation. I am unable to detec t voice breaks. LARYNGOSCOPY: Flexible fiberoptic laryngoscopy was performed today. The patient was spraye d with Lidocaine and Phenylephrine to each nostril prior to the examination after verbal con sent. This demonstrates a clear vallecula and crisp epiglottis. The aryepiglottic folds ar e intact and symmetric bilaterally. The hypopharynx does not demonstrate pooling. The inte rarytenoid space is edematous, but demonstrates no lesions. The false vocal folds are symmet prachi and without lesions or masses. False fold voicing (plica ventricularis) is not noted to day. The true vocal folds show normal and symmetric motion bilaterally. There is no parado xical motion. There is moderate laryngeal hyperfunction which is most notable in the anterio r-posterior dimension. There is thick saliva, but no abnormal mucus down the posterior phary nx. Cricothyroid function appears to be intact bilaterally. While closure is difficult to as sess completely without stroboscopy, it does appear to be complete. The right medial edge i s crisp and shows no lesions or masses. The left medial edge is crisp and shows no lesions or masses. The mucosal covering is mildly edematous. There is no erythema present today. There are no obvious vascular ectasias present. The vocal processes do not demonstrate gran ulomas or contact ulcers. The subglottis and proximal trachea is clear and unobstructed to the limits of the examination today. Pseudosulcus is not appreciated on indirect examinatio n today. EGD 04/19/[address] 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 Biopsied. - Normal stomach. - Normal examined duodenum. Recommendation: - Await pathology results. - Recommend acid suppression medication. 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 Unfortunately, for some reason Aniket was not set up for voice therapy today and the authorization process has not been started. I will have our office start work ing on authorization for this today so she could possibly set up a session of voice therapy when she returns for her consult with sleep medicine in 2 weeks. I will also arrange for And luis enrique to undergo two sessions when she returns for her next follow-up as she typically stays o vernight with family when she comes given the distance from [place]. 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 Acid suppression was recommended, but she already takes 20mg omep razole twice daily and her human resources support specialist who manages her chronic kidney diease has cautioned against increasing this. Her worsening dysphagia symptoms sound consistent with esophageal s pasms, but other than acid suppression these are difficult to manage. Given how brief Aniket 's symptoms are sublingual nitroglycerin would not help. There were no findings reported dur ing her upper endoscopy that were concerning for eosinophilic esophagitis. I reviewed Aniket 's modified barium swallow with Dr. Isaac who did not feel the anterior esophageal filli ng defect at the level of C5-6 was significant. I have yet to determine the etiology of Andmiguel a flores's odynophagia with only liquids. I would expect a structural lesion to cause pain with al l consistencies, but given her continued smoking and unclear odynophagia I have ordered a CT neck with contrast. This will assess ruling out hopi's syndrome and a lesion. I will call her with these results. If her CT neck is unrevealing, I will see her back in 3 months. If h er symptoms persist she may warrant direct microlaryngoscopy with panendoscopy with Dr. Sushma navarro. PLAN: Today I have recommended CT neck with contrast to further evaluate her odynophagia. I will call her with these results. I will see her back in 3 months with 2 sessions of voice therapy to address her laryngeal hyperfunction and globus sensation. Cathleen Castro PA-C [facility] Department of Otolaryngology and Head and Neck Surgery documented i n this encounter Plan of Treatment +--------+---------+ + + + | Date | Type | Specialty | Care Team | Description | +--------+---------+ + + + | 12/08/ | Office | Neurology | Keon Gerber, | | | 2018 | Visit | | MD [address] | | | | | | [place], [place] | | | | | | [address] | | | | | | [phone] | | | | | | | | +--------+---------+ + + + documented as of this encounter Procedures + +--------+ + + + | Procedure Name | Priori | Date/Time | Associated Diagnosis | Comments | | | ty | | | | + +--------+ + + + | IN | Routin | 05/31/2016 | Odynophagia | | | LARYNGOSCOPY,FLEXIBL | e | 10:03 AM | Globus sensation | | | E, DIAGNOSTIC | | PDT | Laryngeal | | | | | | hyperfunction | | | | | | Muscle tension | | | | | | dysphonia | | + +--------+ + + + documented in this encounter Results CT NECK SOFT TISSUE W CONTRAST (06/27/2016 3:34 PM PDT) + + | Specimen | + + | | + + + + + | Narrative | Performed At | + + + | EXAM: CT NECK WITH CONTRAST HISTORY: Pain with swallowing | [facility] | | COMPARISON: None TECHNIQUE: Axial CT of the neck using 100 mL | RADIOLOGY VOICE | | Omnipaque 300 contrast, with sagittal and coronal reformations. | RECOGNITION | | FINDINGS: Neck soft tissues: No mass or lymphadenopathy. There is no | | | evidence of elongation of the styloid processes or calcification of | | | the stylohyoid ligament. Skull/Skull base: No fractures or | | | destructive lesions. Visualized mastoids and middle ears are | | | unremarkable. Paranasal sinuses: Visualized portions are | | | unremarkable. Posterior fossa: Visualized portions are | | | unremarkable. Spine: Visualized portions are unremarkable. | | | Lung apices: Visualized portions are unremarkable. IMPRESSION: | | | Normal contrast enhanced neck CT. Specifically there is no elongation | | | of the styloid processes or calcification of the stylohyoid ligament. | | | I have personally reviewed the images and, if necessary, | | | edited the report. I agree with the report as now presented. | | + + + + + | Procedure Note | + + | Service Account, Radiant Res In Interface - 06/27/2016 4:09 PM PDT EXAM: CT NECK | | WITH CONTRASTHISTORY: Pain with swallowing COMPARISON: NoneTECHNIQUE: Axial CT of the | | neck using 100 mL Omnipaque 300 contrast, with sagittal and coronal | | reformations.FINDINGS:Neck soft tissues: No mass or lymphadenopathy. There is no | | evidence of elongation of the styloid processes or calcification of the stylohyoid | | ligament.Skull/Skull base: No fractures or destructive lesions. Visualized mastoids and | | middle ears are unremarkable. Paranasal sinuses: Visualized portions are | | unremarkable.Posterior fossa: Visualized portions are unremarkable.Spine: Visualized | | portions are unremarkable. Lung apices: Visualized portions are | | unremarkable.IMPRESSION:Normal contrast enhanced neck CT. Specifically there is no | | elongation of the styloid processes or calcification of the stylohyoid ligament.I have | | personally reviewed the images and, if necessary, edited the report. I agree with the | | report as now presented. | |Paranasal sinuses: Visualized portions are unremarkable. | | | |Posterior fossa: Visualized portions are unremarkable. | | | |Spine: Visualized portions are unremarkable. | | | |Lung apices: Visualized portions are unremarkable. | | | |IMPRESSION: | | | |Normal contrast enhanced neck CT. Specifically there is no elongation of the styloid proces ses or calcification of the stylohyoid ligament. | | | | | |I have personally reviewed the images and, if necessary, edited the report. I agree with t he report as now presented. | + + + +---------+ + + | Performing | Address | City/State/Zipcode | Phone Number | | Organization | | | | + +---------+ + + | [facility] | | | | | VOICE RECOGNITION | | | | + +---------+ + + documented in this encounter Visit Diagnoses + + | Diagnosis | + + | Odynophagia - Primary Dysphagia, unspecified | + + | Globus sensation Gastrointestinal malfunction arising from mental factors | + + | Laryngeal hyperfunction Other diseases of larynx | + + | Muscle tension dysphonia Dysphonia | + + | Esophageal dysmotility Dyskinesia of esophagus | + + documented in this encounter
--- OUTSIDE RECORDS SUMMARY | ~2018-11-18 | XMS | Encounter Summary ---
Demographics + + + | Address | [address] [place] [address] St. | | | [place] [address] | + + + | Home Phone [...] Author + + + | Author | [facility] | + + + | Organization | [facility] | + + + | [...] Team Providers + +------+ + | Care Subpoena Server Name | Role | Phone | + [...] Closed | | Radiology | Diagnoses | Kalyan, | Rad Ct Scan | | | | | Chronic | Haroon Sue, | [address] | | | | | ethmoidal | MD,MPH [address] | [address] | | | | | sinusitis | [address] | Mailcode: | | | | | Chronic | [address] | [facility] | | | | | maxillary | [place], [place] | for Health | | | | | sinusitis | [address] | and Healing, | | | | | Chronic | | Building [address], | | | | | frontal | | 3rd Floor | | | | | sinusitis | | [place], [place] | | | | | Chronic | | [address] | | | | | sphenoidal | | Phone: | | | | | sinusitis | | [phone] | | | | | Procedures | | Fax: | | | | | CT SINUS WO | | [phone] | | | | | CONTRAST | | | | | | | ROUTINE | | | | | | | (LANDMARX | | | | | | | PROTOCOL) | | | | | | | NE CT | | | | | | | SCAN,MAXILLO | | | | | | | FACIAL | | | | | | | AREA,W/O | | | | | | | CONTRAST | | | +--------+--------+ + + + + Reason for Visit + + + | Reason | Comments | + + + | New patient | | | consultation | | + + + Intake Referral (Routine) +--------+--------+ + + + + | Status | Reason | Specialty | Diagnoses / | Referred By | Referred To | | | | | Procedures | Contact | Contact | +--------+--------+ + + + + | Closed | | Otolaryngolog | Diagnoses | | Biggs, | | | | y | Cyst and | Gerri, | Haroon M, | | | | | mucocele of | Melvina T, | MD,MPH [address]303 | | | | | nose and | [employer] [address] | | | | | nasal sinus | | [place], [place] | | | | | | [id number] | [address] | | | | | | [place], | | | | | | | [place] | | | | | | | [address] | | | | | | | Phone: | | | | | | | [phone] | | | | | | | Fax: | | | | | | | [phone] | | +--------+--------+ + + + + Encounter Details +--------+---------+ + + + | Date | Type | Department | Care Team | Description | +--------+---------+ + + + | 02/03/ | Office | [facility] | Haroon Biggs, | Chronic ethmoidal | | 2014 | Visit | Center at [facility] [address] | [place] | sinusitis (Primary | | | | [address] | | Dx); Chronic | | | | Mailcode: CH5E | | maxillary sinusitis; | | | | [facility] | | Chronic frontal | | | | and Healing, | | sinusitis; Chronic | | | | Building [address] | | sphenoidal sinusitis | | | | Floor [place], [place] | | | | | | [address] | | | | | | [phone] | | | +--------+---------+ + + + [...] documented as of this encounter Progress Notes Haroon Biggs MD,MPH - 02/03/2015 8:21 AM PST [facility] HPI: Aniket Kendall is a 34 y.o. female who presents to the [facility] in [facility] for Chronic rhinosinusitis s/p surgery. Current symptoms include nasal discharge, h eadache, facial pressure and dysosmia. Symptoms began 4 years ago. Symptom severity is mode rate. Improvement occurred with Nothing despite multiple courses of antibiotics and steroid s. Additional evaluation has included CT scan sinuses, completed prior to procedure. Bedside sinus surgery with nasal reconstruction in August 2014. Total SNOT-22: 74 No current outpatient prescriptions on file. The patient's New Patient History Form was reviewed with the patient. Changes and addition s, where necessary, were made and the form was scanned to the medical record. Comprehensive review of systems was negative other than as documented on this note and on the New Patient History Form. History reviewed. No pertinent past medical history. History reviewed. No pertinent past surgical history. History Substance Use Topics Smoking status: Not on file Smokeless tobacco: Not on file Alcohol Use: Not on file Allergies: Allergies not on file PHYSICAL EXAM: General Appearance: Pleasant, well-developed, well-nourished [...] noted. Al so noted are mucosal edema. RADIOGRAPHIC EVALUATION: ASSESSMENT: Chronic rhinosinusitis, Septal deviation and S/P Sinus Surgery. Quite recalcitr ant despite maximal medical therapies. We've discussed issues and options today. The risks, benefits and alternatives were discus sed and questions answered. She has elected to proceed with revision endoscopic sinus surge ry for the following indications: chronic sinus illness with failure of medical management. She will complete CT sinuses for surgical planning and return for follow up following. The role of nasal/sinus surgery and septoplasty was discussed. Risks including anesthetic, bleeding, infection, olfactory dysfunction, recurrence of symptoms, septal perforation, and injury to associated structures including the orbit and cranial cavity, among others, were discussed and all questions answered. The need for postoperative care including debridement and ongoing medical management was discussed. After considering risks, benefits, and alter natives, surgical management was elected. Preoperative prescriptions provided. Haroon Biggs M.D., M.P.H. Fellow, [facility] Instructor, Rhinology and Sinus Surgery Department of Otolaryngology/Head and Neck Surgery [email or web address] documented in this encounter Plan of Treatment +--------+---------+ + + + | Date | Type | Specialty | Care Team | Description | +--------+---------+ + + + | 12/08/ | Office | Neurology | Keon Gerber, | | | 2018 | Visit | | [address] | | | | | | [place], [place] | | | | | | [address] | | | | | | [phone] | | | | | | | | +--------+---------+ + + + documented as of this encounter Procedures + +--------+ + + + | Procedure Name | Priori | Date/Time | Associated Diagnosis | Comments | | | ty | | | | + +--------+ + + + | NE NASAL | Routin | 02/03/2015 | Chronic ethmoidal | | | ENDOSCOPY,DX | e | 8:53 AM | sinusitis Chronic | | | | | PST | maxillary sinusitis | | | | | | Chronic frontal | | | | | | sinusitis Chronic | | | | | | sphenoidal sinusitis | | + +--------+ + + + documented in this encounter Results CT SINUS WO CONTRAST ROUTINE (LANDMARX PROTOCOL) (02/03/2015 8:55 AM PST) + + + + + + | Component | Value | Ref Range | Performed | Pathologist | | | | | At | Signature | + + + + + + | CT SINUS | EXAM: CT SINUS WITHOUT | | | | | LANDMARX | CONTRAST HISTORY: | | | | | PROTOCOL WO | Sinusitis COMPARISON: | | | | | | None TECHNIQUE: Axial | | | | | | noncontrast CT of the | | | | | | paranasal sinuses, | | | | | | including [place] | | | | | | coronal reformations. | | | | | | FINDINGS: Paranasal | | | | | | Sinuses: There is | | | | | | minimal mucosal | | | | | | thickening in the left | | | | | | maxillaryantrum. Trace | | | | | | scattered mucosal | | | | | | thickening in the right | | | | | | ethmoid air | | | | | | cells.Remaining | | | | | | paranasal sinuses are | | | | | | clear. No evidence of | | | | | | paranasal sinus | | | | | | outflowtract | | | | | | obstruction. No evidence | | | | | | of fluid | | | | | | levels. Soft tissues: | | | | | | | | | | | | Unremarkable Visualiz | | | | | | ed brain and skull: | | | | | | Unremarkable. Orbits: | | | | | | Globes unremarkable. No | | | | | | fractures or masses. | | | | | | IMPRESSION: Minimal | | | | | | paranasal sinus | | | | | | inflammatory changes as | | | | | | above. Attending | | | | | | Radiologists: LAYO | | | | | | ALYSSA SANCHEZuthor: LAYO | | | | | | MD LAURA I personally | | | | | | reviewed the images and, | | | | | | if necessary, edited | | | | | | the report. I agreewith | | | | | | the report as now | | | | | | presented. | | | | | | Final/Electronically | | | | | | sita / LAYO | | | | | | LAURA 02/03/2015 12:20 | | | | | | PM | | | | + + + + + + + + | Specimen | + + | | + + + +---------+ + + | Performing | Address | City/State/Zipcode | Phone Number | | Organization | | | | + +---------+ + + | [facility] | | | | | RADIOLOGY | | | | + +---------+ + + documented in this encounter Visit Diagnoses + + | Diagnosis | + + | Chronic ethmoidal sinusitis - Primary | + + | Chronic maxillary sinusitis | + + | Chronic frontal sinusitis | + + | Chronic sphenoidal sinusitis | + + documented in this encounter"
--- OUTSIDE RECORDS SUMMARY | ~2018-11-18 | XMS | Encounter Summary ---
Demographics + + + | Address | [address] [place] [address] St. | | | [place] [address] | + + + | Home Phone | | + + + | Preferred Language | Unknown | + + + | Marital Status | | + + + | Alevism Affiliation | NON | + + + | Race | White | + + + | Ethnic Group | Not or | + + + Author + + + | Author | [facility] | + + + | Organization | [facility] | + + + | [...] Team Providers + +------+ + | Care Religion Teacher Name | Role | Phone | + [...] | | | | | Abnormal | [place], [place] | | | | | | brain scan | [address] | | | | | | Myoclonus | Phone: | | | | | | Migraine | [phone] | | | | | | without | Fax: | | | | | | aura, not | [phone] | | | | | | intractable, [...] | | | | | | | [place] MRI, CERV | | | | | [...] | | | | hand | MD [address] | | | | | | numbness | [address] | | | | | | Abnormal | [place], [place] | | | | | | brain scan | [address] | | | | | | Myoclonus | Phone: | | | | | | Migraine | [phone] | | | | | | without | Fax: | | | | | | aura, not | [phone] | | | | | | intractable, [...] | | | | | | | [place] MRI | | | | | | [...] | Medication | | 2019 | | [facility] & | MD [address] | management | | | | Healing [address] | [place], [place] | | | | | [address] Mailcode: | [address] | | | | | [facility] | [phone] | | | | | Health and Healing, | | | | | | [facility] | | | | | | [place], [place] | | | | | | [address] | | | | | | [phone] | | | +--------+ + + + [...] | | 2018 | Visit | | [address] | | | | | | [place], [place] | | | | | | [address] | | | | | | [phone] | | | | | | | [...]
--- OUTSIDE RECORDS SUMMARY | ~2018-11-18 | XMS | Encounter Summary ---
Demographics + + + | Address | [address] [place] [address] St. | | | [place] [address] | + + + | Home Phone | | + + + | Preferred Language | Unknown | + + + | Marital Status | | + + + | Mandaen Affiliation | NON | + + + | Race | White | + + + | Ethnic Group | Not or | + + + Author + + + | Author | [facility] | + + + | Organization | [facility] | + + + [...] Team Providers + +------+ + | Care Firer Locomotive Name | Role | Phone | + +------+ + | Melvina Talley | PCP | | + +------+ + Reason for Visit +---------+ + | Reason | Comments | +---------+ + | Post Op | | +---------+ + Benefits Check (Routine) +--------+--------+ + + + + | Status | Reason | Specialty | Diagnoses / | Referred By | Referred To | | | | | Procedures | Contact | Contact | +--------+--------+ + + + + | Closed | | Otolaryngolog | Diagnoses | Non-[facility] | Kalyan, | | | | y | Other | [facility] Dept | Haroon Sue, | | | | | chronic | | MD,MPH [address] | | | | | sinusitis | | [address] | | | | | | | [facility] [place] | | | | | | | [address] | +--------+--------+ + + + + Encounter Details +--------+---------+ + + + | Date | Type | Department | Care Team | Description | +--------+---------+ + + + | 04/07/ | Office | [facility] | Haroon Biggs, | Chronic ethmoidal | | 2016 | Visit | Center at [facility] [address] | MD,MPH | sinusitis (Primary | | | | [address] | | Dx); Chronic | | | | Mailcode: 5E | | maxillary sinusitis; | | | | [place] [facility] | | Deviated nasal | | | | and Healing, | | septum | | | | [address] | | | | | | Floor [place], [place] | | | | | | [address] | | | | | | [phone] | | | +--------+---------+ + + + [...] encounter Progress Notes Haroon Biggs MD,MPH - 04/07/2015 10:40 AM PST [facility] HISTORY: Aniket Kendall is a 34 y.o. female who presents for follow up of sinus surgery (03/01/2015). She is not having any significant difficulties. She denies abnormal bleeding , pain, vision disturbance, clear fluid drainage. Total SNOT-22 score: 40 Procedures Performed: 1. Revision bilateral maxillary antrostomy 2. Revision bilateral anterior ethmoidectomy 3. Revision sptoplasty 4. Outfracture bilateral inferior turbinates Findings: Evidence of prior inferior septoplasty with intact uncinate processes. Obstructiv e septal deviation with superior widening. Bilateral maxillary and anterior ethmoid mucosal inflammation. Medialization of inferior turbinates. Final Pathologic Diagnosis: Sinus contents, bilateral, curettage: - Mild chronic sinusitis with no evidence of increased eosinophils Current Outpatient Prescriptions Medication Sig amitriptyline 25 mg oral tablet Take 1 tablet by mouth once daily at bedtime. cyclobenzaprine 10 mg oral tablet Take 10 mg by mouth every twelve hours. Do not use lo nger than 2-3 weeks. ERGOCALCIFEROL, VITAMIN D2, (VITAMIN D ORAL) Take 5,000 Units by mouth. lisinopril 5 mg oral tablet Take 5 mg by mouth once daily. Nebivolol 10 mg oral tablet Take 10 mg by mouth every twelve hours. omeprazole 20 mg oral capsule,delayed release(DR/EC) Take [...] No current facility-administered medications for this visit. PHYSICAL EXAM: Anterior rhinoscopy reveals crusting in the middle meatus. PROCEDURE: Nasal Endoscopy with Debridement Anesthesia: 4% topical lidocaine Description of procedure: A rigid endoscope was utilized. Crusts and necrotic material/ti ssue were debrided from the sinus cavities bilaterally with retained secretions removed. No adverse synechiae were noted with residual postoperative edema. IMPRESSION/PLAN: Will continue with medication regimen with trial of budesonide and follow up is scheduled. She will call with any problems in the meantime. Haroon Biggs M.D., M.P.H. Fellow, [facility] Instructor, Rhinology and Sinus Surgery Department of Otolaryngology/Head and Neck Surgery [email or web address] documented in this encounter Plan of Treatment +--------+---------+ + + + | Date | Type | Specialty | Care Team | Description | +--------+---------+ + + + | 12/08/ | Office | Neurology | Keon Gerber A, | | | 2019 | Visit | | [address] | | | | | | [place], [place] | | | | | | [address] | | | | | | [phone] | | | | | | | | +--------+---------+ + + + documented as of this encounter Procedures + +--------+ + + + | Procedure Name | Priori | Date/Time | Associated Diagnosis | Comments | | | ty | | | | + +--------+ + + + | ME NASAL | Routin | 04/07/2015 | Chronic ethmoidal | | | SCOPE,BX/RMV | e | 3:47 PM | sinusitis Chronic | | | POLYP/DEBRID | | PST | maxillary sinusitis | | | | | | Deviated nasal | | | | | | septum | | + +--------+ + + + documented in this encounter Visit Diagnoses + + | Diagnosis | + + | Chronic ethmoidal sinusitis - Primary | + + | Chronic maxillary sinusitis | + + | Deviated nasal septum | + + documented in this encounter"
--- OUTSIDE RECORDS SUMMARY | ~2018-11-18 | XMS | Clinical Summary ---
Demographics + + + | Address | [address] | | | [place] [address] | + + + | Home Phone | | + + + | Preferred Language | Unknown | + + + | Marital Status | | + + + | Orthodoxy Affiliation | Unknown | + + + | Race | Unknown | + + + | Ethnic Group | Unknown | + + + Author + + + | Author | [facility] | | | and [place] | + + + | Organization | [facility] | | | and [place] | + + + | Address | Unknown | + + + | Phone | Unavailable | + + + Support + + +---------+ + | Name | Relationship | Address | Phone | + + +---------+ + | Ameena Crow | ECON | Unknown | | + + +---------+ + | Edmond Sweeney | ECON | Unknown | | + + +---------+ + Care Team Providers + +------+ + | Care Facility Sales And Admin Name | Role | Phone | + +------+ + | Melvina Talley | PCP | | | ONLINE ADVERTISING ANALYST | | | + +------+ + Allergies + + + + + + | Active Allergy | Reactions | Severity | Noted | Comments | | | | | Date | | + + + + + + | Penicillins | Rash | Low | 04/16/19 | | | | | | 18 | | + + + + + + Medications + + + +---------+------+------+-------+ | Medication | Sig | Dispensed | Refills | Star | End | Statu | | | | | | t | Date | s | | | | | | Date | | | + + + +---------+------+------+-------+ | oxyCODONE 10 MG | Take 10 mg by mouth | | 0 | | | Activ | | TABS | every 4 hours as | | | | | e | | | needed. | | | | | | + + + +---------+------+------+-------+ | cyclobenzaprine | Take 10 mg by mouth | | 0 | | | Activ | | (FLEXERIL) 10 mg | 3 times daily as | | | | | e | | tablet | needed for Muscle | | | | | | | | spasms. | | | | | | + + + +---------+------+------+-------+ | zolpidem (AMBIEN) | Take 10 mg by mouth | | 0 | | | Activ | | 10 mg tablet | nightly as needed | | | | | e | | | for Insomnia. | | | | | | + + + +---------+------+------+-------+ | docusate sodium | Take 100 mg by mouth | | 0 | | | Activ | | (COLACE) 100 mg | Daily. | | | | | e | | capsule | | | | | | | + + + +---------+------+------+-------+ | omeprazole | Take 20 mg by mouth | | 0 | | | Activ | | (PRILOSEC) 20 mg | every morning | | | | | e | | capsule | (before breakfast). | | | | | | + + + +---------+------+------+-------+ | spironolactone | Take 25 mg by mouth | | 0 | | | Activ | | (ALDACTONE) 25 mg | 2 times daily. | | | | | e | | tablet | | | | | | | + + + +---------+------+------+-------+ | lisinopril | Take 5 mg by mouth | | 0 | | | Activ | | (PRINIVIL, ZESTRIL) | Daily. | | | | | e | | 10 mg tablet | | | | | | | + + + +---------+------+------+-------+ | BYSTOLIC 10 MG | Take 10 mg by mouth | | 0 | 03/1 | | Activ | | tablet | 2 times daily. | | | 2/20 | | e | | | | | | 18 | | | + + + +---------+------+------+-------+ | Cyanocobalamin | Inject as directed | | 0 | | | Activ | | (B-12 COMPLIANCE | Every 30 days. | | | | | e | | INJECTION) 1000 | | | | | | | | MCG/ML KIT | | | | | | | + + + +---------+------+------+-------+ | Sennosides | Take by mouth | | 0 | | | Activ | | (SENOKOT PO) | Daily. | | | | | e | + + + +---------+------+------+-------+ | baclofen | | | 0 | 08/0 | | Activ | | (LIORESAL) 10 mg | | | | 6/20 | | e | | tablet | | | | 18 | | | + + + +---------+------+------+-------+ | hydrOXYzine | | | 0 | 08/0 | | Activ | | hydrochloride | | | | 6/20 | | e | | (ATARAX) 10 mg | | | | 18 | | | | tablet | | | | | | | + + + +---------+------+------+-------+ | ondansetron | | | 0 | 08/0 | | Activ | | (ZOFRAN) 8 MG tablet | | | | 6/20 | | e | | | | | | 18 | | | + + + +---------+------+------+-------+ | budesonide | Add 2ml to 240ml | | 0 | 05/0 | | Activ | | (PULMICORT) 0.5 mg/2 | saline irrigations | | | 8/20 | | e | | mL nebulizer | an irrigate BID | | | 19 | | | | solution | | | | | | | + + + +---------+------+------+-------+ | ergocalciferol | | | 0 | 01/2 | | Activ | | (VITAMIN D-2) 50,000 | | | | 5/20 | | e | | units capsule | | | | 19 | | | + + + +---------+------+------+-------+ | FLUoxetine | TAKE ONE CAPSULE BY | | 0 | 03/0 | | Activ | | (PROZAC) 10 mg | MOUTH EVERY DAY | | | 4/20 | | e | | capsule | | | | 19 | | | + + + +---------+------+------+-------+ | levETIRAcetam | Take 2 tablets by | | 0 | 01/2 | | Activ | | (KEPPRA) 750 MG | mouth two times | | | 5/20 | | e | | tablet | daily. | | | 19 | | | + + + +---------+------+------+-------+ | LORazepam (ATIVAN) | TAKE 1/2 TABLET BY | | 0 | 05/3 | | Activ | | 2 MG tablet | MOUTH EVERY MORNING, | | | 1/20 | | e | | | 1/2 TABLET IN THE | | | 19 | | | | | AFTERNOON, AND 1 | | | | | | | | TABLET AT NIGHT. | | | | | | + + + +---------+------+------+-------+ | LORazepam (ATIVAN) | Take 0.5 mg by mouth | | 0 | | | Activ | | 0.5 mg tablet | as needed for | | | | | e | | | anxiety. | | | | | | + + + +---------+------+------+-------+ | mirtazapine | Take 1 tablet (7.5 | | 0 | 03/2 | | Activ | | (REMERON) 7.5 MG | mg total) by mouth | | | 7/20 | | e | | tablet | at bedtime | | | 19 | | | + + + +---------+------+------+-------+ | promethazine | TAKE ONE TABLET BY | | 0 | 04/2 | | Activ | | (PHENERGAN) 12.5 MG | MOUTH EVERY 6 HOURS | | | 5/20 | | e | | tablet | NEEDED FOR NAUSEA | | | 19 | | | | | AND VOMITING | | | | | | + + + +---------+------+------+-------+ | rOPINIRole | TAKE ONE TABLET BY | | 0 | 05/2 | | Activ | | (REQUIP) 1 mg tablet | MOUTH EVERY DAY AT | | | 4/20 | | e | | | BEDTIME | | | 19 | | | + + + +---------+------+------+-------+ | Cyanocobalamin | Inject as directed | | 0 | | | Activ | | (B-12) 1000 MCG/ML | Every 30 days. | | | | | e | | KIT | | | | | | | + + + +---------+------+------+-------+ | lisinopril | TAKE ONE TABLET BY | | 0 | 03/2 | | Activ | | (PRINIVIL, ZESTRIL) | MOUTH EVERY DAY | | | 7/20 | | e | | 10 mg tablet | | | | 19 | | | + + + +---------+------+------+-------+ | lisinopril | Take 5 mg by mouth | | 0 | | | Activ | | (PRINIVIL, ZESTRIL) | once daily. | | | | | e | | 5 mg tablet | | | | | | | + + + +---------+------+------+-------+ | nebivolol | Take 10 mg by mouth | | 0 | | | Activ | | (BYSTOLIC) 20 MG | daily. | | | | | e | | TABS | | | | | | | + + + +---------+------+------+-------+ | omeprazole | TAKE ONE CAPSULE BY | | 0 | 12/1 | | Activ | | (PRILOSEC) 20 mg | MOUTH TWICE A DAY | | | 2/20 | | e | | capsule | | | | 18 | | | + + + +---------+------+------+-------+ | ondansetron | Take 8 mg by mouth | | 0 | 08/0 | | Activ | | (ZOFRAN) 8 MG tablet | as needed. | | | 6/20 | | e | | | | | | 18 | | | + + + +---------+------+------+-------+ | ondansetron | Take 8 mg by mouth | | 0 | | | Activ | | (ZOFRAN) 8 MG tablet | once daily as | | | | | e | | | needed. | | | | | | + + + +---------+------+------+-------+ | oxyCODONE 10 MG | Take 10 mg by mouth | | 0 | | | Activ | | TABS | as needed. | | | | | e | + + + +---------+------+------+-------+ | zolpidem (AMBIEN) | Take 10 mg by mouth | | 0 | | | Activ | | 10 mg tablet | once daily at | | | | | e | | | bedtime as needed | | | | | | | | for sleep. | | | | | | + + + +---------+------+------+-------+ Active Problems +---------+ + | Problem | Noted Date | +---------+ + | Anxiety | 06/04/2018 | +---------+ + + + | Overview: genetic testing | + + + + + | Acute recurrent maxillary sinusitis | 12/24/2017 | + + + | Diabetes mellitus type II - DIET Control | 06/04/2017 | + + + | RLS (restless legs syndrome) | 06/04/2017 | + + + | MOISÉS (obstructive sleep apnea) | 06/04/2017 | + + + | Hypertension | 06/04/2017 | + + + | KALEE Inhibitors - Daily use | 06/04/2017 | + + + | GERD (gastroesophageal reflux disease) | 05/31/2017 | + + + | Figueroa's esophagus | 05/31/2017 | + + + | Change in bowel habits | 05/31/2017 | + + + | Dysphagia, oropharyngeal phase | 05/31/2017 | + + + | LUQ pain | 05/31/2017 | + + + | Chronic sinusitis, unspecified | 11/08/2016 | + + + | Constipation | 11/08/2016 | + + + | Nonintractable epilepsy without status epilepticus | 11/08/2016 | + + + | 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 NOT current. | | Overview: | | Overview: | | History of. NOT current. | + + + + + | Vitamin D deficiency | 05/20/2013 | + + + | Prostate cancer | | + + + | Chronic pelvic pain in female | | + + + Encounters +--------+ + + + + | Date | Type | Specialty | Care Team | Description | +--------+ + + + + | 10/21/ | Telephone | Gastroenterology | Joe Cespedes MD | Referral (Follow up) | | 2018 | | | | (Did patient ever | | | | | | go to [place] | | | | | | Gastroenterology) | +--------+ + + + + | 09/17/ | Orders Only | | Provider, | Essential (primary) | | 2018 | | | MD Sancho | hypertension; | | | | | | Proteinuria | +--------+ + + + + from Last 3 Months Family History + + +------+ + | Medical History | Relation | Name | Comments | + + +------+ + | Alcohol abuse | Other | | | + + +------+ + | Asthma | Other | | | + + +------+ + | Colon cancer | Other | | | + + +------+ + | Deafness | Other | | | + + +------+ + | Dementia | Other | | | + + +------+ + | Depression | Other | | | + + +------+ + | Diabetes | Other | | | + + +------+ + | Hearing loss | Other | | | + + +------+ + | High cholesterol | Other | | | + + +------+ + | Hypertension | Other | | | + + +------+ + | Osteoporosis | Other | | | + + +------+ + | Prostate cancer | Other | | | + + +------+ + | Renal failure | Other | | | + + +------+ + | Stroke | Other | | | + + +------+ + | Substance abuse | Other | | | + + +------+ + | Thyroid disease | Other | | | + + +------+ + + +------+--------+ + | Relation | Name | Status | Comments | + +------+--------+ + | Brother | | Alive | | + +------+--------+ + | Brother | | Alive | | + +------+--------+ + | Father | | Alive | | + +------+--------+ + | Mother | | Alive | | + +------+--------+ + | Other | | | | + +------+--------+ + | Sister | | Alive | | + +------+--------+ + | Sister | | Alive | | + +------+--------+ + Social History + + + +--------+ + | Tobacco Use | Types | Packs/Day | Years | Date | | | | | Used | | + + + +--------+ + | Former Smoker | Cigarettes | | 20 | Quit: 08/2016 | + + + +--------+ + + +---+---+---+ | Smokeless Tobacco: | | | | | Never Used | | | | + +---+---+---+ + + +---------+ + | Alcohol Use | Drinks/We | oz/Week | Comments | | | ek | | | + + +---------+ + | No | | | | + + +---------+ + [...] recent travel history available. | + + Last Filed Vital Signs + + + + | Vital Sign | Reading | Time Taken | + + + + | Blood Pressure | 131/84 | 10/08/2017 1023 PDT | + + + + | Pulse | 57 | 10/08/2017 1023 PDT | + + + + | Temperature | 36.1 C (97 F) | 06/04/2017 1037 PDT | + + + + | Respiratory Rate | 18 | 10/08/2017 1023 PDT | + + + + | Oxygen Saturation | 97% | 10/08/2017 1023 PDT | + + + + | Inhaled Oxygen | - | - | | Concentration | | | + + + + | Weight | 89.2 kg (196 lb 11.2 | 10/07/2017 1408 PDT | | | oz) | | + + + + | Height | 160 cm (5' 3") | 10/07/20171407 PDT | + + + + | Body Mass Index | 34.84 | 10/07/20171407 PDT | + + + + Plan of Treatment + + + + + | Health Maintenance | Due Date | Last Done | Comments | + + + + + | Diabetic Eye Exam | | | | | | 7 | | | + + + + + | Diabetic Foot Exam | | | | | | 7 | | | + + + + + | Hemoglobin A1c | | | | | Screening | 7 | | | + + + + + | Vaccine: | | | | | Dtap/Tdap/Td (1 - | 8 | | | | Tdap) | | | | + + + + + | Vaccine: | | | | | Pneumococcal 19-64 | 8 | | | | Highest Risk (1 of 3 | | | | | - PCV13) | | | | + + + + + | Cervical Cancer | | | | | Screening (Pap) | 9 | | | + + + + + | Statin Therapy | | | | | (optimal intensity) | 5 | | | + + + + + | Vaccine: Influenza | | | | | (#1) | 9 | | | + + + + + Results Not on filefrom Last 3 Months Insurance + +--------+ +--------+ +---------+--------+ | Payer | Benefi | Subscriber | Effect | Phone | Address | Type | | | t Plan | ID | nate | | | | | | / | | Dates | | | | | | Group | | | | | | + +--------+ +--------+ +---------+--------+ | [employer] | [employer] | [id number] | | [phone] | | Medica | | MEDICAID HMO | HEALTH | | [phone]-Pr | 1 | | id | | | MDCD | | esent | | | | | | [place]MO [place] | | | | | | + +--------+ +--------+ +---------+--------+ + +--------+ +--------+ + + | Guarantor Name | Accoun | Relation to | Date | Phone | Billing Address | | | t Type | Patient | of | | | | | | | | | | + +--------+ +--------+ + + | Aniket Sweeney | Person | Self [birth year] | [address] | | | al/Woody | | 1981 | [phone] | [place] [address] | | | paramjit | | | 6 (Home) | | + +--------+ +--------+ + + Advance Directives Patient has advance care planning documents on file. For more information, please contact:[facility] and [facility] [place] [address]
--- OUTSIDE RECORDS SUMMARY | ~2018-11-18 | XMS | Encounter Summary ---
Demographics + + + | Address | [address] [place] [address] St. | | | [place] [address] | + + + | Home Phone | | + + + | Preferred Language | Unknown | + + + | Marital Status | | + + + | Buddhist Affiliation | NON | + + + | Race | White | + + + | Ethnic Group | Not or | + + + Author + + + | Author | [facility] | + + + | Organization | [facility] | + + + | Address [...] Team Providers + +------+ + | Care Medical Technologist Chief Name | Role | Phone | + +------+ + PCP | Unavailable | + +------+ + Encounter Details +--------+ + + + + | Date | Type | Department | Care Team | Description | +--------+ + + + + | 02/22/ | Office | [facility] | Note, Outpatient | Progress Note | | 1999 | Visit-Trans | MEDICINE | Clinic | | | | cribed | | | | +--------+ + + + [...] documented as of this encounter Progress Notes Interface, Turner And Former Automatic In - 02/18/2006 5:07 AM PSTCLINIC DATE: 02/22/1998 NEUROLOGY CLINIC SUBJECTIVE: Mrs. Kendall returns for follow-up of migraines versus seizure disorder. The clinical history obtained on 01/18/98 was more compatible with migraines, possibly basilar migraines, than with a seizure disorder. The MRI scan completed in [facility], however, was a bit suggestive of hippocampal sclerosis, and she did have a single episode of loss of consciousness in the bathtub, so we felt compelled to complete the evaluation for seizure disorder. She had an EEG which did not reveal any epileptiform discharges, on 01/18/98, and then we requested a MRI scan with temporal lobe cuts to more definitively evaluate the question of hippocampal sclerosis. This MRI was completed here on 02/02/98 and is available for review at the time of this visit. It is an excellent quality study. There is some mild asymmetry of the hippocampi volume, but there are no signal changes and the scan is not supportive of hippocampal sclerosis. In fact, I would consider it a completely normal scan. In the meantime, the patient has reconciled with her and her symptoms have improved. Whereas she was having episodes of migraine with vision disturbance and ataxia on a nightly basis, when I saw her in early January, these are very rare now. She had one on Saturday night which was witnessed by her . He reports that she was a bit out of it, but was tearful, upset, and able to communicate with him. She did not actually lose consciousness. These are occurring every week or couple of weeks now. In addition, she has a constant holoacranial headache on a daily basis. OBJECTIVE: The patient appears well and is in no acute distress. Her weight is 169 pounds, blood pressure 110/90, heart rate 68 and regular. IMPRESSION: 1. Migraine headaches, possibly basilar migraines. 2. Concomitant tension headaches. PLAN: 1. Will give her some amitriptyline, 10-20 mg p.o. q h.s. for migraine prophylaxis and for tension headache prophylaxis. 2. I've advised her to attend to a healthier diet, more exercise, and a better program of sleep hygiene in hope of obtaining long-term relief from the tension headaches. 3. I'll see her in follow-up in a few months to see how she's doing on the amitriptyline. Isaac Long M.D. Advisor [employer] Founder, Neurology JFQ/don cc: GARRY WAY M.D. [address] [facility] [place] [id number] signed by Interface, Turner And Former Automatic In at 02/18/2006 5:07 AM PSTdocumented in this encounter Plan of Treatment +--------+---------+ + + + | Date | Type | Specialty | Care Team | Description | +--------+---------+ + + + | 12/08/ | Office | Neurology | Keon Gerber, | | | 2019 | Visit | | [address] | | | | | | [place], [place] | | | | | | [address] | | | | | | [phone] | | | | | | | | +--------+---------+ + + + documented as of this encounter Visit Diagnoses Not on filedocumented in this encounter"
--- OUTSIDE RECORDS SUMMARY | ~2018-11-18 | XMS | Encounter Summary ---
Demographics + + + | Address | [address] [place] [address] St. | | | [place] [address] | + + + | Home Phone | | + + + | Preferred Language | Unknown | + + + | Marital Status | | + + + | Jewish Affiliation | NON | + + + | Race | White | + + + | Ethnic Group | Not or | + + + Author + + + | Author | [facility] | + + + | Organization | [facility] | + + + | [...] Team Providers + +------+ + | Care Accordion Repairer Name | Role | Phone | + +------+ + | Melvina TalleyP | PCP | | + +------+ + Encounter Details +--------+ + + + + | Date | Type | Department | Care Team | Description | +--------+ + + + + | 03/24/ | MyChart | Neurology at | Trice Wheatley, | RE: MRI Review | | 2016 | Encounter | [facility] & | [place] [address] | | | | | [address] | | | | | [address] Mailcode: | [place], [place] | | | | | [address] [facility] | [address] | | | | | Health and Healing, | | | | | | Building | | | | | | [place], [place] | | | | | | [address] | | | | | | [phone] | | | +--------+ + + + [...] [address] | | | | | | [place], [place] | | | | | | [address] | | | | | | [phone] | | | | | | | | +--------+---------+ + + + documented as of this encounter Visit Diagnoses Not on filedocumented in this encounter"
--- OUTSIDE RECORDS SUMMARY | ~2018-11-18 | XMS | Encounter Summary ---
Demographics + + + | Address | [address] [place] [address] St. | | | [place] [address] | + + + | Home Phone | | + + + | Preferred Language | Unknown | + + + | Marital Status | | + + + | Advent Affiliation | NON | + + + | Race | White | + + + | Ethnic Group | Not or | + + + Author + + + | Author | [facility] | + + + | Organization | [facility] | + + + | Address [...] Team Providers + +------+ + | Care Sample Paster Name | Role | Phone | + +------+ + | Melvina TalleyP | PCP | | + +------+ + Encounter Details +--------+ + + + + | Date | Type | Department | Care Team | Description | +--------+ + + + + | 04/20/ | Documentati | Digestive Health | Guzman Ferrell, | | | 2017 | on | Center at [facility] [address] | [address] | | | | | [address] | | | | | | Mailcode: Center | | | | | | for Health and | | | | | | Healing, [facility] [address] | | | | | | [place], [place] | | | | | | [address] | | | | | | [phone] | | | +--------+ + + + [...] | | 2018 | Visit | | [address] | | | | | | [place], [place] | | | | | | [address] | | | | | | [phone] | | | | | | | | +--------+---------+ + + + documented as of this encounter Visit Diagnoses Not on filedocumented in this encounter"
--- OUTSIDE RECORDS SUMMARY | ~2018-11-18 | XMS | Encounter Summary ---
Demographics + + + | Address | [address] [place] [address] St. | | | [place] [address] | + + + | Home Phone | | + + + | Preferred Language | Unknown | + + + | Marital Status | | + + + | Mormon Affiliation | NON | + + + | Race | White | + + + | Ethnic Group | Not or | + + + Author + + + | Author | [facility] | + + + | Organization | [facility] | + + + | Address | [...] Team Providers + +------+ + | Care Driver Wheelchair Name | Role | Phone | + [...] | | | | | sinusitis | [address] | and Healing, | | | | | Chronic | | [address], | | | | | frontal | | 3rd Floor | | | | | sinusitis | | [place], [place] | | | | | Chronic | | [address] | | | | | sphenoidal | | Phone: | | | | | sinusitis | | [phone] | | | | | Procedures | | Fax: | | | | | CT SINUS WO | | [phone] | | | | | CONTRAST | | | | | | | ROUTINE | | | | | | | (LANDMARX | | | | | | | PROTOCOL) | | | | | | | NM CT | | | | | | [...] | | | | nose and | 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 [address] | | | | | nasal sinus | | [place], [place] | | | | | | [address] | [address] | | | | | | [place], | | | | | | | [place] | | | | | | | [address] | | | | | | | Phone: | | | | | | | [phone] | | | | | | | Fax: | | | | | | | [phone] | | +--------+--------+ + + + + Encounter Details +--------+---------+ + + + | Date | Type | Department | Care Team | Description | +--------+---------+ + + + | 02/03/ | Office | [facility] | Haroon Biggs, | Chronic ethmoidal | | 2014 | Visit | Center at [facility] [address] [place] | sinusitis (Primary | | | | [address] | | Dx); Chronic | | | | Mailcode: CH5E | | maxillary sinusitis; | | | | [facility] | | Chronic frontal | | | | and Healing, | | sinusitis; Chronic | | | | [address] | | sphenoidal sinusitis | | | | Floor [place], [place] | | | | | | [address] | | | | | | [phone] | | | +--------+---------+ + + + [...] Biggs MD,MPH - 02/03/2015 8:21 AM PST [facility] HPI: Aniket Kendall is a 34 y.o. female who presents to the [facility] for Chronic rhinosinusitis s/p surgery. Current [...] prescriptions provided. Haroon Biggs M.D., M.P.H. Fellow, [facility] Instructor, Rhinology and Sinus Surgery Department of Otolaryngology/Head and Neck Surgery [email or web address] documented in this encounter Plan of Treatment +--------+---------+ + + + | Date | Type | Specialty | Care Team | Description | +--------+---------+ + + + | 12/08/ | Office | Neurology | Keon Gerber, | | | 2018 | Visit | | [address] | | | | | | [place], [place] | | | | | | [address] | | | | | | [phone] | | | | | | | | +--------+---------+ + + + documented as of this encounter Procedures + +--------+ + + + | Procedure Name | Priori | Date/Time | Associated Diagnosis | Comments | | | ty | | | | + +--------+ + + + | NM NASAL | Routin | 02/03/2015 | Chronic [...]
--- OUTSIDE RECORDS SUMMARY | ~2018-11-18 | XMS | Encounter Summary ---
Demographics + + + | Address | [address] [place] [address] St. | | | [place] [address] | + + + | Home Phone | | + + + | Preferred Language | Unknown | + + + | Marital Status | | + + + | Hoahaoism Affiliation | NON | + + + | Race | White | + + + | Ethnic Group | Not or | + + + Author + + + | Author | [facility] | + + + | Organization | [facility] | + + + | Address | [...] Team Providers + +------+ + | Care Procurement Officer Name | Role | Phone | + [...] Obesity (BMI | DAVEY Latham | [address] [facility] | | | | | 30-39.9) | [address] [facility] | [place] | | | | | Essential | Edson Spencer | Mailcode: | | | | | hypertension | Rd | [address] | | | | | Procedures | [place], [place] | [place], [place] | | | | | SPLIT | [address] | [address] | | | | | NIGHT PSG | Phone: | Phone: | | | | | [place] | [phone] | [phone] | | | | | POLYSOMNOGRA | Fax: | Fax: | | | | | PHY W/CPAP | [phone] | [phone] | +--------+--------+ + + + + Reason for Visit + + + | Reason | Comments | + + + | Full sleep study | | + + + Diagnostic Testing (Routine) +--------+--------+ + + + + | Status | Reason | Specialty | Diagnoses / | Referred By | Referred To | | | | | Procedures | Contact | Contact | +--------+--------+ + + + + | Closed | | Sleep | Diagnoses | Rosalina | Mikaela Turner | | | | Medicine | Snoring | Francesco | Joao Damico | | | | | Obesity (BMI | DAVEY Latham | [address] | | | | | 30-39.9) | [address] | [place] | | | | | Essential | [facility] | Mailcode: | | | | | hypertension | Rd | [address] | | | | | Procedures | [place], [place] | [place], [place] | | | | | SPLIT | [address] | [address] | | | | | NIGHT PSG | Phone: | Phone: | | | | | [place] | [phone] | [phone] | | | | | POLYSOMNOGRA | Fax: | Fax: | | | | | PHY W/CPAP | [phone] | [phone] | +--------+--------+ + + + + Encounter Details +--------+ + + + + | Date | Type | Department | Care Team | Description | +--------+ + + + + | 05/30/ | Diagnostic | Sleep Disorder | Mera Ma MD | Full sleep study | | 2017 | Visit | [facility] | [address] | | | | | [address] | [facility], | | | | | [place] Mailcode: | [place] [address] | | | | | [address] [place], [place] | [phone] | | | | | [address] | | | | | | [phone] | | | +--------+ + + + [...] + documented as of this encounter Progress Benson Diallo - 05/31/2016 6:37 AM PDT Aniket Kendall was seen in the Sleep Disorders Program today, 05/30/2016, Split Night PSG - did not meet criteria. Diagnostic PSG [[id number]] sleep study performed.Electronically s igned by Benson Cerna at 05/31/2016 6:37 AM Mera Ackerman MD - 05/30/2016 8:00 PM PDTFo rmatting of this note might be different from the original. Patient Name: Aniket Kendall Date of Study: 05/30/2016 Interpreting Physician: Mera Ma MD Interpreted: 06/04/2016 Referring Physician: Lucy Castro Diagnostic Polysomnography Interpretation Impression: Mild obstructive sleep apnea worse during REM sleep (REM apnea-hypopnea index was 25.5). Th e apnea-hypopnea index (AHI) was 13.5, minimum oxygen saturation was 88% and there were 0.2 minutes spent with oxygen saturation of 88% or lower. Sleep was mildly disrupted by sleep di sordered breathing. EKG was unremarkable. EMG was unremarkable. PLM index was 0.0 and PLM i ndex with arousal was 0.0. Recommendations: 1. Auto PAP, Minimum = 5, Maximum = 15 vs attended study based on clinical presentation of symptoms. 2. Avoid supine sleep. Consider positional restriction devices such as REMatee or Zzoma be lts which purchased online. 3. Some patients with failure of CPAP or mild sleep apnea may have additional medical, den benji or surgical treatment options depending on clinical correlation. 4. Return to Sleep Disorders Program to discuss these results with Dr. Ma. Clinical Presentation: Suspected sleep apnea Recording Technique: A diagnostic polysomnographic study (PSG) was performed at the [facility] accord ing to the standard protocol as described by the [employer]: EEG: Gold cup electrodes were applied to the scalp according to the International 10-20 Sy stem. EEG monitored from F4-M1, C4-M1, O2-M1. EOG: Electrodes were placed at the outer can thi of the left and right eye for EOG monitoring. EMG: Surface electrodes were placed on the chin and both legs, 5 cm apart, for detection of submentalis and anterior tibialis EMG acti vity. Airflow: Nasal and oral airflow was monitored using a pressure transducer via nasal/o ral cannula in addition to either a thermistor or thermocouple placed below the nares. Respi ratory Effort: Thoracic and abdominal effort was measured using either inductance plethysmog carlos or polyvinylidene difluoride sensor belts to assess respiratory effort. Oxygen Saturat ion: SpO2 was monitored by pulse oximetry with motion-rejection technology. EKG: Monitored by surface electrodes for arrhythmia detection. Audio/Video: Continuous video and audio wer e monitored via ceiling mounted IR sensitive camera, IR fruit peeler and wall mounted microph one. Scoring Methodology: This study was scored using the [place] [employer] guidelines for periodic limb movements, arousal, apnea, hypopnea and sleep. Hypopneas were scored using AASM criteri a (>30% reduction of airflow amplitude with associated desaturation > 3% and/or arousal). Th e "CMS AHI" excludes hypopneas with associated oxygen desaturations of less than 4%. Technologist's Observations: "Pt referred to clinic for Split PSG to R/O MOISÉS. Sleep onset was rapid, and pt exhibited fa int to light snoring, as well as a number of obstructive respiratory events. However, these were not sufficient to qualify for split criteria, and study was continued as a Dx. Pt's sle ep consolidation was generally good throughout the study, with few periods of wake. NREM was characterized by a predominance of slow wave activity." Sleep and Staging Summary: Lights out: 10:52:38 PM, lights on: 6:00:08 AM for a total recording time of 427.5 minutes. Total sleep time: 405.5 minutes. Sleep efficiency: 95%. Sleep latency: 2.5 minutes, REM lat ency: 76.0 minutes. Stage N1: 6%, Stage N2: 61%, Stage N3: 22%, REM: 12%. Slow wave sleep (N 3): 88.5 minutes and REM sleep: 47.0 minutes. Wake after sleep onset: 19.5 minutes. Supine s leep: 100%. Respiratory Events: Apnea Hypopnea Index (AHI): 13.5. There were a total of 0 obstructive apneas, 3 central apneas, 0 mixed apneas, and 88 hypopn eas. There were a total of 0 respiratory effort-related arousals (RERAs). Supine AHI: 13. RE M AHI: 25.5. The Central Apnea Index was 0.4. CMS Index was 2.2. The average respiratory rat e during sleep was 14. Oximetry: The mean oxygen saturation during sleep was 93% and during wake was 93%. The mini mum oxygen saturation was 88%. There were 67 desaturations of 3% or greater, for an index of 10 per hour. There were 0.2 minutes spent with oxygen saturation 88% or lower. End-Tidal CO2: Peak EtCO2: 57.0 mm Hg. Mean EtCO2: 56.5. There were 405.5 minutes recorded between 51-60 mm Hg. Heart Rate and Rhythm: Normal sinus rhythm and average heart rate of 57 bpm. Limb Movements: 0 periodic limb movements were scored (index of 0.0/hr). 0 of these were as sociated with arousal (index of 0.0/hr). Mera Ma MD Sleep Disorders Program [facility] Electronically signed by Mera Ma MD on June 04, 2016 at 11:24:59 AM Gallo Garcia - 05/31/19 8:00 PM PDT [facility] Sleep Disorders Testing Sleep Disorders Program Polysomnography Report [address], [address] [place] [address] / Patient: Aniket Kendall Study Type: PSG : 1980 Patient Details: Female, 35 years, Height 5' 3", Weight 193 lbs, BMI 34.18 CSN: [id number] Recording Details: Recorded at 10:46:09 PM on 05/30/2016 Physician: Mera Ma MD for 435 minutes. Ref. Physician: Lucy Castro Scoring Details: Last scored by ROSIE Summers Linen Attendant: ROSIE Leigh on 06/01/2016 at 3:24:11 PM. Diagnostic Polysomnography Report Sleep Times Sleep Data Recording Start: 10:46:09 PM Sleep Efficiency: 95% (TST/TIB*100) Lights Out: 10:52:38 PM Sleep Maintenance Efficiency: 95% (TST/SPT*100) Sleep Onset: 10:55:08 PM Sleep Latency: 2.5 min. Lights On: 6:00:08 AM REM Latency: 76.0 min. Recording End: 6:01:19 AM N1 22.5 min. (6%) Recording Duration: 435 min. (7.3 hrs.) N2 247.5 min. (61%) Total Recording Time (TRT): 427.5 min. (7.1 hrs.) N3 88.5 min. (22%) Sleep Period Time (SPT): 425.0 min. (7.1 hrs.) REM 47.0 min. (12%) Total Sleep Time (TST): 405.5 min. (6.8 hrs.) Wake 22.0 min. Wake After Sleep Onset (WASO): 19.5 min. NREM Time: 358.5 min. (88%) Arousals and Awakenings Total Arousals 44 Arousal Index 7 Total Awakenings 30 Awakening Index 4 Respiratory Data AHI: 13.5 CMS AHI: 2.2 MARÍA: 0.4 RDI: 13.5 AHI REM: 25.5 CMS AHI REM: 10.2 MARÍA REM: 2.6 RDI REM: 25.5 AHI NREM: 11.9 CMS AHI NREM: 1.2 MARÍA NREM: 0.2 RDI NREM: 11.9 Total Central Apnea Obstructive Apnea Mixed Apnea Hypopnea Central Hypopnea RERA Occurrences 3 0 0 88 0 0 Max. Duration (sec.) 10.0 0.0 0.0 52.3 0.0 0.0 Mean Duration (sec.) 10.0 0.0 0.0 21.6 0.0 0.0 Total Index 0.4 0.0 0.0 13.0 0 0 Body Position Position Time (%TST) REM NREM Apnea/ AHI Mean SpO2 % Snore (min.) (min.) (min.) (min.) Hypopnea Sleep Index C / O / M / H Supine 427.5 (100%) 47.0 358.5 3 / 0 / 0 / 88 13 93 % 3 Left 0.0 (0%) 0.0 0.0 N/A / N/A / N/A / N/A N/A N/A % N/A Prone 0.0 (0%) 0.0 0.0 N/A / N/A / N/A / N/A N/A N/A % N/A Right 0.0 (0%) 0.0 0.0 N/A / N/A / N/A / N/A N/A N/A % N/A Upright 0.0 (N/A%) 0.0 0.0 N/A / N/A / N/A / N/A N/A N/A % N/A Arousal Data Total Arousals with Respiratory Events: 33 Arousals with LM Events: 1 Arousals with Snoring Events: 0 Non-Specific Arousals: 10 Total Arousals: 44 Arousal Index: 7 Periodic Limb Movement Data Count Index PLM 0.0 0.0 PLM with Arousal 0.0 0.0 Oximetry Data NREM REM TST Wake Mean SpO2 %: 93 % 93 % 93 % 93 % Min SpO2 %: 89 % 88 % 88 % 88 % Total REM NREM Awake <70% 0.0 min. 0.0 min. 0.0 min. 0.0 min. 71 - 80% 0.0 min. 0.0 min. 0.0 min. 0.0 min. 81 - 90% 4.0 min. 0.5 min. 3.3 min. 0.2 min. 91 - 100% 423.3 min. 46.5 min. 355.2 min. 21.7 min. # Desat. Events at or below 88% 0 0 N/A 0 Time (%) with Saturation at or below 88% 0.0 % 0.2 0.0 0.4 Time (min.) with Saturation at or below 88% 0.2 min. 0.1 0.0 0.1 3% Desaturation Index (BOZENA): 10 27 8 25 Cardiac Data NREM REM TRT WAKE Mean Heart Rate (bpm): 57 59 57 61 Low Heart Rate (bpm): 51 51 52 53 High Heart Rate (bpm): 75 75 75 76 PSG Graphical Summary documented in this encount er Plan of Treatment +--------+---------+ + + + | Date | Type | Specialty | Care Team | Description | +--------+---------+ + + + | 12/08/ | Office | Neurology | Keon Gerber, | | | 2018 | Visit | | [address] | | | | | | [facility] [place] | | | | | | [address] | | | | | | [phone] | | | | | | | | +--------+---------+ + + + documented as of this encounter Procedures + +--------+ + + + | Procedure Name | Priori | Date/Time | Associated Diagnosis | Comments | | | ty | | | | + +--------+ + + + | [place] POLYSOMNOGRAPHY, | Routin | 06/04/2016 | Snoring | | | 4 OR MORE | e | 11:25 AM | Obstructive sleep | | | | | PDT | apnea | | + +--------+ + + + | SPLIT NIGHT PSG | Routin | 06/04/2016 | Snoring Obesity | Results for this | | | e | | (BMI 30-39.9) | procedure are in the | | | | | Essential | results section. | | | | | hypertension | | + +--------+ + + + | [place] POLYSOMNOGRAPHY,4 | Routin | 05/31/2016 | Snoring Obesity | | | OR MORE-TECH | e | 6:37 AM | (BMI 30-39.9) | | | | | PDT | Essential | | | | | | hypertension | | + +--------+ + + + documented in this encounter Results SPLIT NIGHT PSG (06/04/2016) [...] | | + +---------+ + + | [facility] | | | | | SLEEP STUDIES | | | | + +---------+ + + | [facility] | | [place], [place] | | | SLEEP STUDIES | | | | + +---------+ + + documented in this encounter Visit Diagnoses + + | Diagnosis | + + | Snoring Other dyspnea and respiratory abnormality | + + | Obesity (BMI 30-39.9) Obesity, unspecified | + + | Essential hypertension | + + | Obstructive sleep apnea Obstructive sleep apnea (adult) (pediatric) | + + documented in this encounter
--- OUTSIDE RECORDS SUMMARY | ~2018-11-18 | XMS | Encounter Summary ---
Demographics + + + | Address | [address] [place] [address] St. | | | [place] [address] | + + + | Home Phone | | + + + | Preferred Language | Unknown | + + + | Marital Status | | + + + | Yarsanism Affiliation | NON | + + + | Race | White | + + + | Ethnic Group | Not or | + + + Author + + + | Author | [facility] | + + + | Organization | [facility] | + + + | Address | [...] Team Providers + +------+ + | Care Door To Door Lead Generation Name | Role | Phone | + [...] Speech | | | | Therapy | Chronic | Lucy | [address] | | | | | laryngitis | DAVEY Ohara | [address]an | | | | | Dysphagia, | [address] | Mailcode: | | | | | unspecified | [address] | [facility] | | | | | Dysphonia | [place], [place] | for [facility] | | | | | Gastro-esoph | [address] | and Healing, | | | | | ageal reflux | Phone: | [address], | | | | | disease | [phone] | [address] Floor | | | | | without | Fax: | [place], [place] | | | | | esophagitis | [phone] | [address] | | | | | Other | | Phone: | | | | | diseases of | | [phone] | | | | | larynx | | Fax: | | | | | Other | | [phone] | | | | | somatoform | | | | | | | disorders | | | +--------+--------+ + + + + Encounter Details +--------+ + + + + | Date | Type | Department | Care Team | Description | +--------+ + + + + | 08/17/ | Diagnostic | Otolaryngology [facility] | Marj Martinez, | | | 2017 | Visit | [facility] | [facility]-PASSP[facility] APPLICATION EXAMINER [address] | | | | | Swallowing at [facility] | [address] | | | | | [address] | [facility] [place] | | | | | Mailcode: [facility] | [address] | | | | | [facility] | | | | | | and Healing, | | | | | | Building | | | | | | Floor [place], [place] | | | | | | [address] | | | | | | [phone] | | | +--------+ + + + [...] documented as of this encounter Progress Notes Marj Martinez, [facility] APPLICATION EXAMINER - 08/17/2016 1:00 PM PDT VOICE THERAPY PROGRESS NOTE CLINIC: [facility] CLINIC DATE: 08/17/16 REFERRING PHYSICIAN: TAMEKA Osborn PRIMARY DIAGNOSIS: 1. Dysphonia 2. Laryngeal hyperfunction 3. Globus sensation TREATMENT DIAGNOSIS: 1. Dysphonia 2. Laryngeal hyperfunction 3. Globus sensation DATE OF ONSET: 02/16/16 START OF CARE: 03/26/16 NUMBER OF SESSIONS: 3 DURATION OF SESSION: 60 min. 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 The patient lives in [place], [place], and was seen for her first treatment session yesterday afternoon. She reports that she completed her voice ex ercises x1 yesterday and x1 this morning. She reports that she woke up this morning and her voice sounds "gargly and hoarse". She does not feel that this improved when she completed he r exercises. She reports that she tried to think about improved coordination of breath/voice with greetings and goodbyes, but states that this was difficult because she would go for lo ng periods without talking, and felt like her voice was not warmed up. OBJECTIVE: At baseline today, the patient's voice is characterized by a rough, underproject ed, and back-focused vocal quality. Patient was able to demonstrate low abdominal breathing independently at the start of today's session. Exercises for coordinating breath with unvoic ed sounds were practiced using /sh/ and lip trill. Aniket did well coordinating breath and v oice with humming as a vocal warm-up. M-initial syllables and nasally loaded phrases were us ed to facilitate relaxed, front focused voicing. Aniket then practiced reading at the senten ce level and short paragraph level and required min cues to maintain breath support to the e nds of phrases. Aniket was able to demonstrate improved voice efficiency during structured c onversation today given mod cues. She benefited from cues carry the breath to the end of the phrase in order achieve greater forward resonance and reduce tight, throat-focused voice qu ality. Negative practice facilitated awareness. Aniket was not able to appreciate any signif icant difference in her globus sensation with improved vocal technique. Discussed benefits o f structured daily practice, as well as working on carryover of improved vocal technique thr oughout her day. Aniket is preparing for her wedding in two weeks, and indicated that she ma y have difficulty working on both of these. Encouraged Aniket to focus on continuous abdomin al breathing throughout the day. Discussed follow-up for further treatment when patient is b [facility] in [place] again. The patient did appear to understand the information presented today. ASSESSMENT: Good first session. Aniket is stimulable for improved vocal quality with tasks to facilitate abdominal breathing and relaxed, front focused vocal technique. She demonstrat ed improved awareness of her breathing both at rest and while speaking in her two treatment sessions. She was able to achieve improved coordination of voice and breath while reading at the short paragraph level with min cues. She required more cueing to maintain efficient voi cing during conversation today. PLAN: The patient lives in [place], [place], and will return for additional treatment in [facility] m [facility]. Homework was provided. Marj Martinez MS, CCC-PASSPORT APPLICATION EXAMINER Speech-Language Pathologist [facility] Department of Otolaryngology/ Head and Neck Surgery Appointments: [phone] documented in thi s encounter Plan of Treatment +--------+---------+ + + + | Date | Type | Specialty | Care Team | Description | +--------+---------+ + + + | 12/08/ | Office | Neurology | Keon Gerber, | | | 2018 | Visit | | [address] | | | | | | [place], [place] | | | | | | [address] | | | | | | [phone] | | | | | | | | +--------+---------+ + + + documented as of this encounter Procedures + +--------+ + + + | Procedure Name | Priori | Date/Time | Associated Diagnosis | Comments | | | ty | | | | + +--------+ + + + | WI SPEECH/HEARING | Routin | 08/17/2016 | Dysphonia | | | THERAPY | e | 4:19 PM | Laryngeal | | | | | PDT | hyperfunction | | | | | | Globus sensation | | + +--------+ + + + documented in this encounter Visit Diagnoses + + | Diagnosis | + + | Dysphonia - Primary | + + | Laryngeal hyperfunction Other diseases of larynx | + + | Globus sensation Gastrointestinal malfunction arising from mental factors | + + documented in this encounter
--- OUTSIDE RECORDS SUMMARY | ~2018-11-18 | XMS | Encounter Summary ---
Demographics + + + | Address | [address] [place] [address] St. | | | [place] [address] | + + + | Home Phone | | + + + | Preferred Language | Unknown | + + + | Marital Status | | + + + | Mandaeism Affiliation | NON | + + + | Race | White | + + + | Ethnic Group | Not or | + + + Author + + + | Author | [facility] | + + + | Organization | [facility] | + + + | Address [...] Team Providers + +------+ + | Care Nut Tapper Name | Role | Phone | + +------+ + | Melvina Talley | PCP | | + +------+ + Reason for Visit + + + | Reason | Comments | + + + | Discussion | Pt had surgery on Saturday, woke up last night and sneezed and had | | | some bleeding, but no other bleeding today. Having a lot of | | | lightheadedness and nausea. Took BP and it was 94/60, which is | | | very low for her. Would like to discuss and make sure she's | | | doing okay. | + + + | Discussion | Dr. Biggs returned my page and I connected him with the patient at | | | 4:10pm. | + + + Encounter Details +--------+ + + + + | Date | Type | Department | Care Team | Description | +--------+ + + + + | 03/04/ | Telephone | [place] [facility] | Haroon Biggs, | Discussion (Pt had | | 2015 | | Center at [facility] [address] | ,[facility] | surgery on Saturday, | | | | [address] | | woke up last night | | | | Mailcode: [facility] | | and sneezed and had | | | | [facility] | | some bleeding, but | | | | and Healing, | | no other bleeding | | | | [address] | | today. Having a lot | | | | Floor [place], [place] | | of lightheadedness | | | | [address] | | and nausea. Took BP | | | | [phone] | | and it was 94/60, | | | | | | which is very low | | | | | | for her. Would like | | | | | | to discuss and make | | | | | | sure she's doing | | | | | | okay.); Discussion | | | | | | (Dr. Biggs returned | | | | | | my page and I | | | | | | connected him with | | | | | | the patient at | | | | | | 4:10pm.) | +--------+ + + + + Social [...] | | 2018 | Visit | | [address] | | | | | | [place], [place] | | | | | | [address] | | | | | | [phone] | | | | | | | | +--------+---------+ + + + documented as of this encounter Visit Diagnoses Not on filedocumented in this encounter"
--- OUTSIDE RECORDS SUMMARY | ~2018-11-18 | XMS | Encounter Summary ---
Demographics + + + | Address | [address] [place] [address] St. | | | [place] [address] | + + + | Home Phone | | + + + | Preferred Language | Unknown | + + + | Marital Status | | + + + | Worship Affiliation | NON | + + + | Race | White | + + + | Ethnic Group | Not or | + + + Author + + + | Author | [facility] | + + + | Organization | [facility] | + + + | Address [...] Team Providers + +------+ + | Care Rn Birthing Name | Role | Phone | + +------+ + | Melvina TalleyP | PCP | | + +------+ + Reason for Referral PROC - Dept/Practice Procedure (Routine) +--------+--------+ + + + + | Status | Reason | Specialty | Diagnoses / | Referred By | Referred To | | | | | Procedures | Contact | Contact | +--------+--------+ + + + + | Closed | | Gastroenterol | Diagnoses | Gloria, | Gas Endo | | | | ogy | | Lucy | [facility] [address] | | | | | Gastroesopha | DAVEY Zaidi | [address] | | | | | geal reflux | [address] | Mailcode: | | | | | disease, | Ave | [facility] | | | | | esophagitis | [place], [place] | for Health | | | | | presence not | [phone] | and Healing, | | | | | specified | Phone: | [address] | | | | | Procedures | [phone] | [place], [place] | | | | | CONSULT TO | Fax: | [phone] | | | | | GI PROCEDURE | [phone] | Phone: | | | | | UNIT: EGD | | [phone] | | | | | [place] UPPER GI | | Fax: | | | | | ENDOSCOPY,BI | | [phone] | | | | | OPSY | | | +--------+--------+ + + + + Consultation (Routine) +--------+--------+ + + + + | Status | Reason | Specialty | Diagnoses / | Referred By | Referred To | | | | | Procedures | Contact | Contact | +--------+--------+ + + + + | Closed | | Sleep | Diagnoses | Gloria, | Rosalina, | | | | Medicine | Obstructive | Lucy | Francesco Latham, | | | | | sleep apnea | E, PA-C | PA-C [address] | | | | | (adult) | [address] | [address] | | | | | (pediatric) | Ave | Edson Ceci | | | | | Essential | [facility], [place] | Rd [place], | | | | | (primary) | [address] | [place] | | | | | hypertension | Phone: | [phone] | | | | | Procedures | [phone] | Phone: | | | | | CONSULT TO | Fax: | [phone] | | | | | ADULT SLEEP | [phone] | Fax: | | | | | MEDICINE | | [phone] | | | | | [place] NEW | | | | | | | PATIENT | | | | | | | LEVEL V [place] | | | | | | | EST PATIENT | | | | | | | LEVEL V | | | +--------+--------+ + + + + Reason for Visit + + + | Reason | Comments | + + + | New patient | | | consultation | | + + + Consultation (Routine) [...] SW | | | | | | MANAGEMENT ASSISTANT [address] | | | | | | [address] | [place], [place] | | | | | | [id number] | [address] | | | | | | [place], | Phone: | | | | | | [place] | [phone] | | | | | | [address] | Fax: | | | | | | Phone: | [phone] | | | | | | [phone] | | | | | | | Fax: | | | | | | | [phone] | | +--------+--------+ + + + + Encounter Details +--------+---------+ + + + | Date | Type | Department | Care Team | Description | +--------+---------+ + + + | 03/26/ | Office | Otolaryngology | Gloria, | Chronic laryngitis | | 2017 | Visit | Laryngology Services | Lucy Zaidi PA-C | (Primary Dx); | | | | at [address] | [address] | Odynophagia; Globus | | | | [address] [place], | [place], [place] | sensation; | | | | [place] [address] | [address] | Gastroesophageal | | | | [phone] | [phone] | reflux disease; | | | | | | Laryngeal | | | | | | hyperfunction | +--------+---------+ + + + Social History [...] + + + | Blood Pressure | 123/78 | 03/26/2016 12:49 PM | | | | | PST | | + + + + + | Pulse | 73 | 03/26/2016 12:49 PM | | | | | PST [...] + + + + | Weight | 87.5 kg (193 lb) | 03/26/2016 12:49 PM | | | | | PST | | + + + + + | Height | 160 cm (5' 3") | 03/26/2016 12:49 PM | | | | | PST | | + + + + + | Body Mass Index | 34.19 | 03/26/2016 12:49 PM | | | | | PST | | + + + + + documented in this encounter Patient Instructions Patient Instructions Guadalupe Faulkner MA - 03/26/2016 1:30 PM PSTThank you for choosing [facility] Department of Otolaryngology for your health care needs. If you need to speak to an ENT physician after normal business hours, please call [phone] and ask to have the ENT phys ician cost consultant paged. documented in this encounter Progress Notes Guadalupe Faulkner MA - 03/26/2016 1:30 PM PSTlaryngoscopy procedure was performed using the following instruments: Description #1: laryngoscope Serial ID #1: [id number] Lucy Jara PA-C - 03/26/2016 1:30 PM PSTFormatting of this note might be different from the nicolas jay PATIENT: Aniket Kendall [facility] MR#: [id number] : 1980 REQUESTING PROVIDER: TAMEKA Yin [facility] [address] [place] [address] PRIMARY CARE PROVIDER: TAMEKA Mistry CLINIC: [facility] CHIEF COMPLAINT: Chief Complaint Patient presents with New patient consultation HPI: Aniket Kendall is a 35 y.o. female who presents to the [facility] Sw[facility]ing with sensation of something in her throat constantly for the past 2 year s. She feels this sensation in the back of her throat and points to the level of the thyrohy oid space. This sensation never goes away. She describes no specific preceding event. She serna s a 4 year history of chronic sinusitis for which she underwent her first surgery in September 06. Then in February 2015 she was told she was a difficult intubation for her second sinus cortez rgery here with Dr. Biggs. She reports waking up from surgery with a sore throat and hoarse v oice. Since then she has noted pain with swallowing liquids if she doesn't face straight for aquino. She does have have pain with dry swallows or swallowing foods, but does notice the lum p sensation is more prominent during these times. She points to the pain bilaterally at the level of the thyrohyoid place. She reports that the pain has not progressed since it's onset , but does radiate up to her right ear. She reports also getting ear pain associated with he r reflux symptoms. She feels her reflux is well controlled on 20mg omeprazole twice daily. S he reports having an upper endoscopy 5 years ago that demonstrated a gastric ulcer. At that time she was experiencing significant reflux symptoms with acidic regurgitation and substern al burning. She typically eats dinner at 8-9pm and then goes to bed at 11-12pm. She tries to eat earlier, but usually isn't able to make this happen. She endorses trouble swallowing pa rticle foods such as raw vegetables, rice and trouble with pills. If she does eat these she feels like food is hung up in her sinuses and she has to do a sinus irrigation to get the fo od out. However, she denies nasal regurgitation of food. She does okay with steak, chicken a nd bread, but reports needing to have water and chew her food really well. She denies pneumo davon. She has had a 30lb weight loss over the last 8 months by exercise and diet change as garth zaidi prepares for her wedding this summer. She reports trouble breathing when laying down. She finds she has to prop her head sometime s due to this. Her reports loud snoring and waking herself gasping for air 4-5x/nigh t. She reports headaches and waking up feeling like she didn't sleep well. She endorses need ing to take medication to help her fall asleep at night as well. She has not had a sleep stan dy. She has noted changes in her voice for the past 2 years as well. She describes voicing as e ffortful. Her voice fluctuates and seems to be worse at night after heavy use. 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 She finds if she yells she coughs. She reports coughing at night when she lays down t o go to bed. She has woken herself up due to the cough. She notes running out of air while s he talks. She did see a tie tamper locally and had pulmonary function testing. I do not h ave access to these records, but she reports being told they were normal. VOCAL DEMANDS and HYGIENE: Her vocal demands are primarily those of conversational speech a nd telephone use. She reports that she is talkative. She drinks about 64 oz of noncaffeina joshua fluid daily, 20 oz of caffeinated beverages. She is currently smoking. She has smoked 1 PPD for the past 20 years. She reports quitting for 3 months last summer, but then restarti ng. She is interested in quitting and says her kids really want her to quit. She reports hav ing a skin reaction to nicotine patches and being unable to quit with Wellbutrin. PMHx: Past Medical History Diagnosis Date CKD (chronic kidney disease) Fibromyalgia Fibromyalgia 2004 GERD (gastroesophageal reflux disease) HTN (hypertension) PONV (postoperative nausea and vomiting) SURGHx: Past Surgical History Procedure Laterality Date Egd (esophagogastroduodenoscopy) Bilateral tubal ligation Tonsillectomy Sinus surgery march 01, 2015 Tubal ligation SOCIAL Hx: Social History Social History Marital status: Single Spouse name: N/A Number of children: N/A Years of education: N/A Occupational History Not on file. Social History Main Topics Smoking status: Current Every Day Smoker Packs/day: 1.00 Years: 20.00 Types: Cigarettes Last attempt to quit: 01/28/2015 Smokeless tobacco: Never Used Alcohol use No Comment: none Drug use: No Comment: none Sexual activity: Yes control/ protection: Surgical Comment: tubal ligation Other Topics Concern Not on file Social History Narrative FAMILY HX: Family History Problem Relation Thyroid Mother Thyroid Sister Cancer Maternal Grandmother Colon, breast Thyroid Maternal Grandmother Tremors Neg Hx Movement Disorders Neg Hx ALLERGIES: Allergies Allergen Reactions Penicillin Rash MEDICATIONS: Current Outpatient Prescriptions Medication Sig amitriptyline 25 mg oral tablet Take 1 tablet by mouth once daily at bedtime. BUDESONIDE NASL Instill 0.6 mg in nose two times daily. Mix with [employer] sinus irrigati ons. Irrigate BID. Sent to [facility] BYSTOLIC 10 mg oral tablet cyclobenzaprine 10 mg oral tablet Take by mouth. ERGOCALCIFEROL, VITAMIN D2, (VITAMIN D ORAL) Take 5,000 Units by mouth. lisinopril 5 mg oral tablet Take 5 mg by mouth once daily. omeprazole 20 [...] No current facility-administered medications for this visit. ROS: Positive for depression, chronic kidney disease and facial movements. 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 Negative for: weight change, fevers/chills, hemoptysis, murmur, angina, arrh ythmia, stroke, liver disease, bleeding disorder, diarrhea, melena. EXAMINATION: BP 123/78 | Pulse 73 | Ht 1.6 m (5' 3") | Wt 87.5 kg (193 lb) | BMI 34.19 kg/ (m^2) Gen: She is a 35 y.o. female. She is awake, alert and comfortable with the examination. Her weight is elevated. She is normocephalic. Ears: The pinnae are normal. External auditory canals show minimal cerumen bilaterally. The tympanic membranes are clear with normal anatomic landmarks and an aerated middle ear sp mike. Nose: The nasal dorsum is straight and the nares are widely patent. The mucosa is pink and there are no lesions or masses noted. There is no significant nasal obstruction noted. Face: There [...] posterior , digastric or submental triangles. The thyrohyoid space is tight with voicing. The thyroh yoid muscles are tender and palpation reproduces her pain on swallowing. Chest: Chest rise is symmetric and there is no audible wheezing, stridor or wet vocal qual ity. Neuro: Extraoccular movements are grossly intact. There is symmetric movement noted of th e face. Hearing is grossly intact. Palatal elevation is symmetric and full. Tongue protru jamar is midline. VOICE EVALUATION: Perceptual voice evaluation demonstrates dysphonia which is mild. Under projected. The pitch is acceptable for a female and shows limited range. Vocal intensity is low and shows limited upper range. There is 0 roughness, 0 breathiness, and 1+ tightness appreciated. There is no tremor noted with sustained vowel phonation. I am unable to dete ct voice breaks. Glottal flores is not detected. VIDEOSTROBOSCOPY: Laryngovideostroboscopy was performed today by Latha Vasquez, [employer]. Th e patient was sprayed with Lidocaine and Phenylephrine to each nostril prior to the examinat ion after verbal consent. This demonstrates a crisp epiglottis. Prominent vallecula, but sy mmetrically enlarged. There is a small left sided, rough prominence on the vallecula, see pi cture below. The aryepiglottic folds are intact and symmetric bilaterally. The hypopharynx does not demonstrate pooling. The interarytenoid space demonstrates no lesions. Postcricoid space is pale and mildly edematous consistent with her history of smoking. It does not demo nstrate pachydermia. The false vocal folds are symmetric and without lesions or masses. The true vocal folds show normal and symmetric motion bilaterally. There is no paradoxical mot ion. There is mild laryngeal hyperfunction which is most notable in the anterior-posterior d imension. There is not noted to be increased thick laryngeal mucous. Cricothyroid function a ppears to be intact bilaterally. The mucosal wave is periodic. There is no chasing asymmetr y noted. On the right, the wave amplitude is normal. On the left, the wave amplitude is no rmal. Closure is complete. The right medial edge is crisp and shows no lesions or masses. The left medial edge is crisp and shows no lesions or masses. The mucosal covering is mildly edematous. There is no erythema present today. There are no obvious vascular ectasias pr esent. The vocal processes do not demonstrate granulomas or contact ulcers. The subglottis and proximal trachea is clear and unobstructed to the limits of the examination today. Pse udosulcus is not appreciated on indirect examination today. ASSESSMENT: Ms. Kendall appears to have dysphonia associated with chronic laryngitis in t he setting of a 20 pack year history and laryngeal hyperfunction. She has globus sensation a nd odynophagia associated with a history of gastroesophageal reflux. I question if her odyno phagia is related to her laryngeal hyperfunction as we were able to reproduce her symptoms w ith palpation of the thyrohyoid space which was noted to be tight with voicing. She would be nefit from voice therapy to reduce her tension. We discussed the importance of smoking cessa tion and available resources including [place]. She appears to still be in the c ontemplation stage. We will continue to discuss this at her follow-ups. She had a prominent vallecula which I think is contributing to her trouble breathing while flat. There was a sma ll vallecular lesion on the left I will monitor, no ulceration or surrounding erythema. Due to her apneic episodes, snoring and headaches, I have placed a referral for a sleep study. A ndrea also underwent a modified barium swallow and an esophagram today which demonstrated no rmal oropharyngeal swallow with mild esophageal dysmotility and gastroesophageal reflux was observed with provocation measures. There was a filling defect in the postcricoid area of un clear etiology. Differential diagnosis for this lesion includes a edema secondary to gastroe sophageal reflux, malignant lesion and a stricture. I have recommended direct visualization and placed a consult for an EGD. I would like to see Aniket back in 2 months with voice ther apy. I have asked her to contact the clinic sooner if she notes worsening dysphagia, increas ing pain or changes in her voice. PLAN: After a thorough discussion of our findings today, I have recommended an upper endos copy to assess the postcricoid filling defect noted on her modified barium swallow. I have p laced a referral to sleep medicine due to symptoms concerning for sleep apnea. I had a raghu perez discussion about smoking cessation and urged Aniket to work on quitting. I have recomme nded repeat evaluation in 2 months with voice therapy the same day. I will see her sooner if her symptoms get worse in the interim. Cathleen Castro PA-C [facility] Department of Otolaryngology and Head and Neck Surgery documented i n this encounter Plan of Treatment +--------+---------+ + + + | Date | Type | Specialty | Care Team | Description | +--------+---------+ + + + | 12/08/ | Office | Neurology | Keon Gerber, | | | 2018 | Visit | | [address] | | | | | | [place], [place] | | | | | | [address] | | | | | | [phone] | | | | | | | | +--------+---------+ + + + documented as of this encounter Visit Diagnoses + + | Diagnosis | + + | Chronic laryngitis - Primary | + + | Odynophagia Dysphagia, unspecified | + + | Globus sensation Gastrointestinal malfunction arising from mental factors | + + | Gastroesophageal reflux disease | + + | Laryngeal hyperfunction Other diseases of larynx | + + documented in this encounter
--- OUTSIDE RECORDS SUMMARY | ~2018-11-18 | XMS | Encounter Summary ---
Demographics + + + | Address | [address] [place] [address] St. | | | [place] [address] | + + + | Home Phone | | + + + | Preferred Language | Unknown | + + + | Marital Status | | + + + | Sikh Affiliation | NON | + + + [...] Providers + +------+ + | Care Manager Lvn Name | Role | Phone | + +------+ + | Melvina Talley | PCP | | + +------+ + Reason for Visit + + + | Reason | Comments | + + + | Prior Authorization | | | Request - Imaging | | + + + Encounter Details +--------+ + + + + | Date | Type | Department | Care Team | Description | +--------+ + + + + | 07/07/ | MyChart | Neurology at | Keon Gerber, | RE: Brain and | | 2019 | Encounter | [address] | [address] | Cervical Spine MRI's | | | | [address] | [place], [place] | | | | | [place], [place] | [address] | | | | | [address] | [phone] | | | | | [phone] | | | +--------+ + + + [...] | | 2019 | Visit | | [address] | | | | | | [place], [place] | | | | | | [address] | | | | | | [phone] | | | | | | | | +--------+---------+ + + + documented as of this encounter Visit Diagnoses Not on filedocumented in this encounter"
--- OUTSIDE RECORDS SUMMARY | ~2018-11-18 | XMS | Encounter Summary ---
Demographics + + + | Address | [address] [place] [address] St. | | | [place] [address] | + + + | Home Phone | | + + + | Preferred Language | Unknown | + + + | Marital Status | | + + + | Amish Affiliation | NON | + + + [...] Team Providers + +------+ + | Care Seed Cleaning Manager Name | Role | Phone | [...] | | | | | sinusitis | [address] | and Healing, | | | | | Chronic | | [address], | | | | | frontal | | 3rd Floor | | | | | sinusitis | | [place], [place] | | | | | Chronic | | [address] | | | | | sphenoidal | | Phone: | | | | | sinusitis | | [phone] | | | | | Procedures | | Fax: | | | | | CT SINUS WO | | [phone] | | | | | CONTRAST | | | | | | | ROUTINE | | | | | | | (LANDMARX | | | | | | | PROTOCOL) | | | | | | | [place] | | | | | | [...] Closed | | Radiology | Diagnoses | Biggs, | Rad Ct Scan | | | | | Chronic | Haroon M, | [address] | | | | | ethmoidal | MD,MPH [address] | | | | | sinusitis | [address] | Mailcode: | | | | | Chronic | Ave | [facility] | | | | | maxillary | [place], [place] | for Health | | | | | sinusitis | [address] | and Healing, | | | | | Chronic | | [address], | | | | | frontal | | 3rd Floor | | | | | sinusitis | | [place], [place] | | | | | Chronic | | [address] | | | | | sphenoidal | | Phone: | | | | | sinusitis | | [phone] | | | | | Procedures | | Fax: | | | | | CT SINUS WO | | [phone] | | | | | CONTRAST | | | | | | | ROUTINE | | | | | | | (LANDMARX | | | | | | | PROTOCOL) | | | | | | | [place] CT | | | | | | | SCAN,MAXILLO | | | | | | | FACIAL | | | | | | | AREA,W/O | | | | | | | CONTRAST | | | +--------+--------+ + + + + Reason for Visit Diagnostic Testing (Routine) +--------+--------+ + + + + | Status | Reason | Specialty | Diagnoses / | Referred By | Referred To | | | | | Procedures | Contact | Contact | +--------+--------+ + + + + | Closed | | Radiology | Diagnoses | Biggs, | Rad Ct Scan | | | | | Chronic | Haroon M, | [address] | | | | | ethmoidal | MD,MPH [address] | | | | | sinusitis | [address] | Mailcode: | | | | | Chronic | Ave | [facility] | | | | | maxillary | [place], [place] | for Health | | | | | sinusitis | [address] | and Healing, | | | | | Chronic | | [address], | | | | | frontal | | 3rd Floor | | | | | sinusitis | | [place], [place] | | | | | Chronic | | [address] | | | | | sphenoidal | | Phone: | | | | | sinusitis | | [phone] | | | | | Procedures | | Fax: | | | | | CT SINUS WO | | [phone] | | | | | CONTRAST | | | | | | | ROUTINE | | | | | | | (LANDMARX | | | | | | | PROTOCOL) | | | | | | | [place] | | | | | | [...] | +--------+ + + + + | 02/03/ | Hospital | Radiology/Imaging | | | | 2014 | Encounter | Lab at [facility] [address] | | | | | [address] Mailcode: | | | | | | [facility] | | | | | | Health and Healing, | | | | | | [place] [address], [facility] | | | | | | Floor [place], [place] | | | | | | [address] | | | | | | [phone] | | | +--------+ + + + [...] + + documented as of this encounter Medications at Time of Discharge + + + +---------+ + + | Medication | Sig | Dispensed | Refills | Start | End Date | | | | | | Date | | + + + +---------+ + + | | Take 1 tablet by | 28 | 0 | 02/04/20 | | | trimethoprim-sulfame | mouth two times | tablet | | 15 | 5 | | thoxazole (BACTRIM | daily for 14 days. | | | | | | DS) 160-800 mg oral | Begin 1 week prior | | | | | | tabletIndications: | to surgery | | | | | | Chronic ethmoidal | | | | | | | sinusitis, Chronic | | | | | | | maxillary sinusitis, | | | | | | | Chronic frontal | | | | | | | sinusitis, Chronic | | | | | | | sphenoidal sinusitis | | | | | | + + + +---------+ + + documented as of this encounter Plan of Treatment +--------+---------+ + + + | Date | Type | Specialty | Care Team | Description | +--------+---------+ + + + | 12/08/ | Office | Neurology | Keon Gerber A, | | | 2018 | Visit | | [address] | | | | | | [place], [place] | | | | | | [address] | | | | | | [phone] | | | | | | | | +--------+---------+ + + + documented as of this encounter Procedures + +--------+ + + + | Procedure Name | Priori | Date/Time | Associated Diagnosis | Comments | | | ty | | | | + +--------+ + + + | CT SINUS WO CONTRAST | Routin | 02/03/2015 | Chronic ethmoidal | Results for this | | ROUTINE | e | 8:55 AM | sinusitis Chronic | procedure are in the | | | | PST | maxillary sinusitis | results section. | | | | | Chronic frontal [...] | | | | signed / LAYO | | | | | [...]
--- OUTSIDE RECORDS SUMMARY | ~2018-11-18 | XMS | Encounter Summary ---
Demographics + + + | Address | [address] [place] [address] St. | | | [place] [address] | + + + | Home Phone | | + + + | Preferred Language | Unknown | + + + | Marital Status | | + + + | Latter-Day Affiliation | NON | + + + | Race | White | + + + | Ethnic Group | Not or | + + + Author + + + | Author | [facility] | + + + | Organization | [facility] | + + + | Address | Unknown | + + + | Phone | Unavailable | + + + Support + + +---------+ + | Name | Relationship | Address | Phone | + + +---------+ + | Edmond Sweenye | ECON | Unknown | | + + +---------+ + | Kentrell Crow | ECON | Unknown | | + + +---------+ + Care Team Providers + +------+ + | Care Drive Man Name | Role | Phone | + [...] | | laryngitis | DAVEY Ohara | [address] | | | | | Dysphagia, | [address] | Mailcode: | | | | | unspecified | Ave | [facility] | | | | | Dysphonia | [place], [place] | for Health | | | | | Gastro-esoph | [address] | and Healing, | | | | | ageal reflux | Phone: | Building [address], | | | | | disease | [phone] | 15th Floor | | | | | without | Fax: | [place], [place] | | | | | esophagitis | [phone] | [address] | | | | | Other | | Phone: | | | | | diseases of | | [phone] | | | | | larynx | | Fax: | | | | | 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 | [...] Visit | [facility] | [facility]-TREE AND SHRUB WORKER [address] | | | | | Swallowing at [facility] | [address] | | | | | [address] | [facility] [place] | | | | | Mailcode: [facility]15[facility] | [address] | | | | | [facility] | | | | | | and Healing, | | | | | | Building | | | | | | Floor [place], [place] | | | | | | [address] | | | | | | [phone] | | | +--------+ + + + [...] of this encounter Progress Notes Marj Martinez, [facility]-TREE AND SHRUB WORKER - 08/17/2016 1:00 PM PDT VOICE THERAPY PROGRESS NOTE CLINIC: [facility] CLINIC DATE: 08/17/16 REFERRING PHYSICIAN: TAMEKA Osborn PRIMARY DIAGNOSIS: 1. Dysphonia 2. Laryngeal hyperfunction 3. Globus sensation TREATMENT DIAGNOSIS: 1. Dysphonia 2. Laryngeal hyperfunction 3. Globus sensation DATE OF ONSET: 02/16/16 START OF CARE: 03/26/16 NUMBER OF SESSIONS: 3 DURATION OF SESSION: 60 min. 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 The patient lives in [place], [place], and was seen for her first [...] for further treatment when patient is [facility] [place] [facility]. The patient did appear to understand [...] conversation today. PLAN: The patient lives in [place], [place], and will return for additional treatment in [facility]. Homework was provided. Marj Martinez MS, CCC-TREE AND SHRUB WORKER Speech-Language Pathologist [facility] Department of Otolaryngology/ Head and Neck Surgery Appointments: [phone] documented in thi s encounter Plan of Treatment +--------+---------+ + + + | Date | Type | Specialty | Care Team | Description | +--------+---------+ + + + | 12/08/ | Office | Neurology | Keon Gerber, | | | 2018 | Visit | | [address] | | | | | | [place], [place] | | | | | | [address] | | | | | | [phone] | | | | | | | | +--------+---------+ + + + documented as of this encounter Procedures + +--------+ + + + | Procedure Name | Priori | Date/Time | Associated Diagnosis | Comments | | | ty | | | | + +--------+ + + + | MD SPEECH/HEARING | Routin | 08/17/2016 | Dysphonia [...]
--- OUTSIDE RECORDS SUMMARY | ~2018-11-18 | XMS | Encounter Summary ---
Demographics + + + | Address | [address] [place] [address] St. | | | [place] [address] | + + + | Home Phone [...] | Author | [facility] | + + + | Organization | [facility] | + + + | Address | [...] Team Providers + +------+ + | Care Collections Professional Name | Role | Phone | + +------+ + | Melvina Talley | PCP | | + +------+ + Encounter Details +--------+------+ + + + | Date | Type | Department | Care Team | Description | +--------+------+ + + + | 03/14/ | Lab | Laboratory at [facility] | | RLS (restless legs | | 2019 | | [address] | | syndrome); Abdominal | | | | [place], [place] | | pain, unspecified | | | | [address] | | abdominal location; | | | | [phone] | | Myoclonus; | | | | [...] [address] | | | | | | [place], [place] | | | | | | [address] | | | | | | [phone] | | | | | | | [...] | [facility] | | | URINE | [facility],[address] | | REG UNIV | | | CONCENTRATI | Marlon Bustos, [facility] | | PTH - INTFC | | | [place] | [address] | | | | | | [phone].[employer]. | | | | | | Kaleb [...] [facility] REG | [address] | [place], [place] | | | UNIV PTH - INTFC | | [address] | | + + + + + [...] | | | N, URINE | | MAINTENANCE HELPER UTILITY ENGINEER | REG UNIV | | | ([facility]) | | | PTH - INTFC | | + + + + + + | HEPTACARBOX | <1 | 0 - 2 umol/mol | [facility] | | | YLATE | | MAINTENANCE HELPER UTILITY ENGINEER | REG UNIV | | | PORPHYRIN(A | | | PTH - INTFC | | | RUP) | | | | | + + + + + + | COPROPORPHY | 3 | 0 - 6 umol/mol | [facility] | | | RIN I | | MAINTENANCE HELPER UTILITY ENGINEER | REG UNIV | | | | | | PTH - INTFC | | + + + + + + | COPROPORPHY | 10 | 0 - 14 umol/mol | [facility] | | | RIN III | | MAINTENANCE HELPER UTILITY ENGINEER | REG UNIV | | | | [...] Results are | | | | | | normalized to creatinine | | | | | | concentration and | | | | | | reported as a ratio of | | | | | | amounts (micromoles of | | | | | | porphyrin/moles of | | | | | | creatinine). Test | | | | | | developed and | | | | | | characteristics | | | | | | determined by [facility] | | | | | | [facility]. See | | | | | | Compliance Statement B: | | | | | | [employer]/CSPerformed | | | | | | by [employer] | | | | | | [facility] | | | | | | [address] | | | | | | [phone].[employer]. | | | | | | [employer], Kaleb Silver MD, | | | | | | [...] [facility] | [address] | [place], [place] | | | UNIV PTH - INTFC | | [address] | | + + + + + [...] | Specimen | + + | Blood | + + + + + [...] | + + + + + | [facility] | [address] | [place] [address] | | | SERVICES, CORE | NATASHA [...] | Specimen | + + | Blood | + + + + + | Narrative | Performed At | + + + | Reference Interval: 0-18years: Deficiency: <20 ng/mL | [facility] | | Optimum level: >or=20 | LABORATORY | | ng/mL | SERVICES, CORE | | >18years: Deficiency: <20 ng/mL [...] | + + + + + | [facility] | [address] [facility] | [place] [address] | | | SERVICES, CORE | NATASHA [...] | | | LABORATORY | | | ETHIOPIAN | | | SERVICES, | | | [...] | Specimen | + + | Blood | + + + + + | Narrative | Performed At | + + + | GFR is estimated using the MDRD equation recommended by the | [facility] | | National Kidney Disease Education Program. Estimated GFR | LABORATORY | | Interpretive Information: <60 mL/min/1.73 sq | SERVICES, CORE | | m Chronic Kidney Disease <15 [...] | + + + + + | [facility] [employer] | [address] | [place] [address] | | | SERVICES, CORE | NATASHA [...] | LABORATORY | | | | <20 | | SERVICES, | | | | ng/mL: | | CORE | | | | Consistant with iron | | | | | | deficiency 21-50 | | | | | | ng/mL: Possible | | | | | | iron deficiency | | | | | | 51-99 ng/mL: | | | | | | Iron deficiency unlikely | | | | | | unless inflammation | | | | | | present | | | | | | or | | | | | | patien | | | | | | t >65 years of age | | | | | | 100-200 ng/mL: | | | | | | Normal, not consistent | | | | | | with iron | | | | | | deficiency >200 | | | | | | ng/mL: If | | | | | | transferrin saturation | | | | | | >45%, consider | | | | | | hemochromatosis | | | | + + + + + + + + | Specimen | + + | Blood | + + + + + + + | Performing | Address | City/State/Zipcode | Phone Number | | Organization | | | | + + + + + | [facility] | [address] | [place] [address] | | | SERVICES, CORE | NATASHA [...]
--- OUTSIDE RECORDS SUMMARY | ~2018-11-18 | XMS | Encounter Summary ---
Demographics + + + | Address | [address] [place] [address] St. | | | [place] [address] | + + + | Home Phone | | + + + | Preferred Language | Unknown | + + + | Marital Status | | + + + | Sikhism Affiliation | NON | + + + [...] Team Providers + +------+ + | Care Carbide Operator Name | Role | Phone | + +------+ + | Melvina Talley | PCP | | + +------+ + Reason for Visit + + + | Reason | Comments | + + + | Discussion | Patient returning Dr. Biggs's Aprilt request to call clinic if | | | still experienceing symptoms. Confirmed that phone number was | | | still current and should go through when calling back. | + + + Encounter Details +--------+ + + + + | Date | Type | Department | Care Team | Description | +--------+ + + + + | 05/09/ | Telephone | [place] [facility] | Haroon Biggs, | Discussion (Patient | | 2015 | | Center at [facility] [address] | ,MPH | returning Dr. Biggs's | | | | [address] | | Mychart request to | | | | Mailcode: CH5E | | call clinic if still | | | | [place] [facility] | | experienceing | | | | and Healing, | | symptoms. Confirmed | | | | | | that phone number | | | | [place], [place] | | was still current | | | | [address] | | and should go | | | | [phone] | | through when calling | | | | | | back.) | +--------+ + + + + Social [...] | | 2018 | Visit | | [address] | | | | | | [place], [place] | | | | | | [address] | | | | | | [phone] | | | | | | | | +--------+---------+ + + + documented as of this encounter Visit Diagnoses Not on filedocumented in this encounter"
--- OUTSIDE RECORDS SUMMARY | ~2018-11-18 | XMS | Encounter Summary ---
Demographics + + + | Address | [address] [place] [address] St. | | | [place] [address] | + + + | Home Phone | | + + + | Preferred Language | Unknown | + + + | Marital Status | | + + + | Yazdanism Affiliation | NON | + + + | Race | White | + + + | Ethnic Group | Not or | + + + Author + + + | Author | [facility] | + + + | Organization | [facility] | + + + | Address [...] Providers + +------+ + | Care Pad Hand Name | Role | Phone | + +------+ + | Melvina Talley | PCP | | + +------+ + Encounter Details +--------+ + + + + | Date | Type | Department | Care Team | Description | +--------+ + + + + | 03/14/ | MyChart | Neurology at | Keon Gerber, | RE:Labs | | 2019 | Encounter | [facility] & | [address] | | | | | [address] | [place], [place] | | | | | [address] Mailcode: | [id number] | | | | | [facility] | [phone] | | | | | Health and Healing, | | | | | | [facility] | | | | | | [place], [place] | | | | | | [address] | | | | | | [phone] | | | +--------+ + + + [...] | | 2018 | Visit | | [address] | | | | | | [place], [place] | | | | | | [address] | | | | | | [phone] | | | | | | | | +--------+---------+ + + + documented as of this encounter Visit Diagnoses Not on filedocumented in this encounter"
--- OUTSIDE RECORDS SUMMARY | ~2018-11-18 | XMS | Encounter Summary ---
Demographics + + + | Address | [address] [place] [address] St. | | | [place] [address] | + + + | Home Phone [...] Team Providers + +------+ + | Care Working Second Hand Name | Role | Phone | [...] Questions About | | 2019 | | [facility] & | MD [address] | Diagnosis | | | | Healing [address] | [place], [place] | | | | | [address] Mailcode: | [address] | | | | | [facility] | [phone] | | | | | Health and Healing, | | | | | | [facility] | | | | | | [place], [place] | | | | | | [address] | | | | | | [phone] | | | +--------+ + + + [...] | | 2019 | Visit | | [address] | | | | | | [place], [place] | | | | | | [address] | | | | | | [phone] | | | | | | | | +--------+---------+ + + + documented as of this encounter Visit Diagnoses Not on filedocumented in this encounter"
--- OUTSIDE RECORDS SUMMARY | ~2018-11-18 | XMS | Encounter Summary ---
Demographics + + + | Address | [address] [place] [address] St. | | | [place] [address] | + + + | Home Phone [...] + + + | Author | [facility] | + + + | Organization | [facility] | + + + | [...] Team Providers + +------+ + | Care Electromechanical Assembly Technician Name | Role | Phone | + [...] | 2016 | Encounter | Center at [facility] [address] | MD[facility] | nose | | | | [address] | | | | | | Mailcode: CH5E | | | | | | [facility] | | | | | | and [address], | | | | | | Building , | | | | | | [place], [place] | | | | | | [address] | | | | | | [phone] | | | +--------+ + + + [...] [address] | | | | | | [place], [place] | | | | | | [address] | | | | | | [phone] | | | | | | | | +--------+---------+ + + + documented as of this encounter Visit Diagnoses Not on filedocumented in this encounter"
--- OUTSIDE RECORDS SUMMARY | ~2018-11-18 | XMS | Encounter Summary ---
Demographics + + + | Address | [address] | | | [place] [address] | + + + | Home Phone | | + + + | Preferred Language | Unknown | + + + | Marital Status | | + + + | Mandaeism Affiliation | Unknown | + + + | Race | Unknown | + + + | Ethnic Group | Unknown | + + + Author + + + | Author | [facility] | | | and Brandynana | + + + | Organization | [facility] | | | and Brandynana | [...] Team Providers + +------+ + | Care Picker And Packer Name | Role | Phone | + +------+ + | Melvina Talley | PCP | | | OUTSIDE RESIDENTIAL SALES PROFESSIONAL | | | + +------+ + Reason for Visit + + + | Reason | Comments | + + + | Referral (Follow up) | Did patient ever go to [facility] | + + + Encounter Details +--------+ + + + + | Date | Type | Department | Care Team | Description | +--------+ + + + + | 10/21/ | Telephone | [facility] | Joe Cespedes MD | Referral (Follow up) | | 2019 | | GASTROENTEROLOGY | [address], [facility] | (Did patient ever | | | | [address] | [address] [place] | go to [facility] | | | | [address] | [address] | Gastroenterology) | | | | [address] | | | | | | [phone] | | | +--------+ + + + [...]
--- OUTSIDE RECORDS SUMMARY | ~2018-11-18 | XMS | Encounter Summary ---
Demographics + + + | Address | [address] [place] [address] St. | | | [place] [address] | + + + | Home Phone | | + + + | Preferred Language | Unknown | + + + | Marital Status | | + + + | Samaritan Affiliation | NON | + + + [...] Team Providers + +------+ + | Care Commercial Journeyman Electrician Name | Role | Phone | + [...] + + | 03/01/ | Hospital | [facility] | Haroon Biggs, | | | 2015 | Encounter | ST[address] | [place] | | | | | Vijaya Mailcode: [facility] | | | | | | [facility] | | | | | | Health and [facility], | | | | | | Building [address] | | | | | | [place], [place] | | | | | | [address] | | | | | | [phone] | | | +--------+ + + + [...] may receive a patient satisfaction survey from "[employer]". We sowmya pham appreciate your feedback on [...] | | 2019 | Visit | | [address] | | | | | | | | | | | | [address] | | | | | | [phone] | | | | | | | [...] | + + + + + | [facility] | [address] | [place] [address] | | | PATHOLOGY | [address] [...]
--- OUTSIDE RECORDS SUMMARY | ~2018-11-18 | XMS | Encounter Summary ---
Demographics + + + | Address | [address] [place] [address] St. | | | [place] [address] | + + + | Home Phone | | + + + | Preferred Language | Unknown | + + + | Marital Status | | + + + | Bahai Affiliation | NON | + + + | Race | White | + + + | Ethnic Group | Not or | + + + Author + + + | Author | [facility] | + + + | Organization | [facility] | + + + | Address | [...] Team Providers + +------+ + | Care Deputy Director Of Public Works Name | Role | Phone | + [...] PA-C | | | | | at [facility] [address] | [address] | | | | | [address], | [place], [place] | | | | | [place] [address] | [address] | | | | | [phone] | [phone] | | | | | | | [...] | | 2019 | Visit | | [address] | | | | | | [place], [place] | | | | | | [address] | | | | | | [phone] | | | | | | | | +--------+---------+ + + + documented as of this encounter Visit Diagnoses Not on filedocumented in this encounter"
--- OUTSIDE RECORDS SUMMARY | ~2018-11-18 | XMS | Encounter Summary ---
Demographics + + + | Address | [address] [place] [address] St. | | | [place] [address] | + + + | Home Phone | | + + + | Preferred Language | Unknown | + + + | Marital Status | | + + + | Nondenominational Affiliation | NON | + + + [...] Team Providers + +------+ + | Care Cryptologic Technician Name | Role | Phone | + +------+ + | Melvina TalleyP | PCP | | + +------+ + Encounter Details +--------+ + + + + | Date | Type | Department | Care Team | Description | +--------+ + + + + | 05/07/ | MyChart | Neurology at | Keon Gerber, | Vitamin D | | 2019 | Encounter | [facility] & | [address] | | | | | [address] | [place], [place] | | | | | [address] Mailcode: | [address] | | | | | [facility] | [phone] | | | | | Health and Healing, | | | | | | [facility] | | | | | | [place], [place] | | | | | | [address] | | | | | | [phone] | | | +--------+ + + + [...] | | 2018 | Visit | | [address] | | | | | | [place], [place] | | | | | | [address] | | | | | | [phone] | | | | | | | | +--------+---------+ + + + documented as of this encounter Visit Diagnoses Not on filedocumented in this encounter"
--- OUTSIDE RECORDS SUMMARY | ~2018-11-18 | XMS | Encounter Summary ---
Demographics + + + | Address | [address] [place] [address] St. | | | [place] [address] | + + + | Home Phone [...] Team Providers + +------+ + | Care Molder Labels Name | Role | Phone | + +------+ + | Melvina Talley | PCP | | + +------+ + Reason for Visit + + + | Reason | Comments | + + + | Medical Records | | | Review | | + + + Encounter Details +--------+ + + + + | Date | Type | Department | Care Team | Description | +--------+ + + + + | 03/27/ | Documentati | Endoscopic | Lab, Gi Procedure | Medical Records | | 2017 | on | Procedural Unit at | | Review | | | | [address] | | | | | | [address] | | | | | | [address] Mailcode: UHN83 | | | | | | [address] [facility] | | | | | | [address] [place], [place] | | | | | | [address] | | | | | | [phone] | | | +--------+ + + + [...] [address] | | | | | | [place] | | | | | | [address] | | | | | | [phone] | | | | | | | | +--------+---------+ + + + documented as of this encounter Visit Diagnoses Not on filedocumented in this encounter"
--- OUTSIDE RECORDS SUMMARY | ~2018-11-18 | XMS | Encounter Summary ---
Demographics + + + | Address | [address] [place] [address] St. | | | [place] [address] | + + + | Home Phone | | + + + | Preferred Language | Unknown | + + + | Marital Status | | + + + | Congregational Affiliation | NON | + + + | Race | White | + + + | Ethnic Group | Not or | + + + Author + + + | Author | [facility] | + + + | Organization | [facility] | + + + | Address | [...] Team Providers + +------+ + | Care Wet Finisher Wool Name | Role | Phone | + [...] | | | | | sinusitis | [address] | and Healing, | | | | | Chronic | | [address], | | | | | frontal | | 3rd Floor | | | | | sinusitis | | [place], [place] | | | | | Chronic | | [address] | | | | | sphenoidal | | Phone: | | | | | sinusitis | | [phone] | | | | | Procedures | | Fax: | | | | | CT SINUS WO | | [phone] | | | | | CONTRAST | [...] | | | | | sinusitis | [address] | and Healing, | | | | | Chronic | | [address], | | | | | frontal | | 3rd Floor | | | | | sinusitis | | [place], [place] | | | | | Chronic | | [address] | | | | | sphenoidal | | Phone: | | | | | sinusitis | | [phone] | | | | | Procedures | | Fax: | | | | | CT SINUS WO | | [phone] | | | | | CONTRAST | [...] | | | | | maxillary | [place], [place] | for Health | | | | | sinusitis | [address] | and Healing, | | | | | Chronic | | [address], | | | | | frontal | | 3rd Floor | | | | | sinusitis | | [place], [place] | | | | | Chronic | | [address] | | | | | sphenoidal | | Phone: | | | | | sinusitis | | [phone] | | | | | Procedures | | Fax: | | | | | CT SINUS WO | | [phone] | | | | | CONTRAST | [...] | 2014 | Encounter | Lab at [facility] [address] | | | | | | [address] Mailcode: | | | | | | [facility] | | | | | | Health and Healing, | | | | | | [place] [address], [facility] | | | | | | Floor [place], [place] | | | | | | [address] | | | | | | [phone] | | | +--------+ + + + [...] [address] | | | | | | [place], [place] | | | | | | [address] | | | | | | [phone] | | | | | | | [...]
--- OUTSIDE RECORDS SUMMARY | ~2018-11-18 | XMS | Encounter Summary ---
Demographics + + + | Address | [address] [place] [address] St. | | | [place] [address] | + + + | Home Phone | | + + + | Preferred Language | Unknown | + + + | Marital Status | | + + + | Baptist Affiliation | NON | + + + | Race | White | + + + | Ethnic Group | Not or | + + + Author + + + | Author | [facility] | + + + | Organization | [facility] | + + + | [...] Team Providers + +------+ + | Care Data Conversion Developer Name | Role | Phone | [...] + + | 05/09/ | Telephone | [place] [facility] | Haroon Biggs, | Discussion (Patient | | 2015 | | Center at [facility] [address] | ,MPH | returning Dr. Biggs's | | | | [address] | | Mychart request to | | | | Mailcode: CH5E | | call clinic if still | | | | [facility] | | experienceing | | | | and Healing, | | symptoms. Confirmed | | | | | | that phone number | | | | [place], [place] | | was still current | | | | [address] | | and should go | | | | [phone] | | through when calling | | [...] | | 2018 | Visit | | [address] | | | | | | [place], [place] | | | | | | [address] | | | | | | [phone] | | | | | | | | +--------+---------+ + + + documented as of this encounter Visit Diagnoses Not on filedocumented in this encounter"
--- OUTSIDE RECORDS SUMMARY | ~2018-11-18 | XMS | Encounter Summary ---
Demographics + + + | Address | [address] [place] [address] St. | | | [place] [address] | + + + | Home Phone | | + + + | Preferred Language | Unknown | + + + | Marital Status | | + + + | Gnosticism Affiliation | NON | + + + | Race | White | + + + | Ethnic Group | Not or | + + + Author + + + | Author | [facility] | + + + | Organization | [facility] | + + + | Address [...] Team Providers + +------+ + | Care Electronic Controls Repairer Supervisor Name | Role | Phone | [...] | | | | Procedures | DAVEY Ohara | [address] | | | | | CT NECK | [address] | [address] | | | | | SOFT TISSUE | Ave | Mailcode: | | | | | W CONTRAST | [place], [place] | [address] [facility] | | | | | [place] CT NECK | [address] | Hospital | | | | | TISSUE | Phone: | [place], [place] | | | | | CONTRAST | [phone] | [address] | | | | | | Fax: | Phone: | | | | | | [phone] | [phone] | | | | | | | Fax: | | | | | | | [phone] | +--------+--------+ + + + + Diagnostic Testing (Routine) +--------+--------+ + + + + | Status | Reason | Specialty | Diagnoses / | Referred By | Referred To | | | | | Procedures | Contact | Contact | +--------+--------+ + + + + | Closed | | Radiology | Diagnoses | Zoheydiki, | Rad Ct Scan | | | | | Odynophagia | Lucy | [facility] [address] | | | | | Procedures | EDAVEY | [address] | | | | | CT NECK | [address] | [address] | | | | | SOFT TISSUE | Ave | Mailcode: | | | | | W CONTRAST | [place], [place] | [address] [facility] | | | | | [place] CT NECK | [address] | Hospital | | | | | TISSUE | Phone: | [place], [place] | | | | | CONTRAST | [phone] | [address] | | | | | | Fax: | Phone: | | | | | | [phone] | [phone] | | | | | | | Fax: | | | | | | | [phone] | +--------+--------+ + + + + Reason [...] | | | Odynophagia | Lucy | [facility] [address] | | | | | Procedures | DAVEY Ohara | Eric Sandhu | | | | | CT NECK | [address] | [address] | | | | | SOFT TISSUE | Ave | Mailcode: | | | | | W CONTRAST | [place], [place] | [address] [facility] | | | | | [place] CT NECK | [address] | Hospital | | | | | TISSUE | Phone: | [place], [place] | | | | | CONTRAST | [phone] | [address] | | | | | | Fax: | Phone: | | | | | | [phone] | [phone] | | | | | | | Fax: | | | | | | | [phone] | +--------+--------+ + + + + Encounter Details +--------+ + + + + | Date | Type | Department | Care Team | Description | +--------+ + + + + | 06/27/ | Hospital | Diagnostic Imaging | Gloria, | | | 2016 | Encounter | Services at [facility] | Lucy Ohara PA-C | | | | | [address] | [address] | | | | | [address] Mailcode: | [place], [place] | | | | | [address] [facility] | [address] | | | | | [place], [place] | [phone] | | | | | [address] | | | | | | [phone] | | | +--------+ + + + [...] | | 2019 | Visit | | [address] | | | | | | [place], [place] | | | | | | [address] | | | | | | [phone] | | | | | | | | +--------+---------+ + + + documented as of this encounter Procedures + +--------+ + + + | Procedure Name | Priori | Date/Time | Associated Diagnosis | Comments | | | ty | | | | + +--------+ + + + | PROCEDURE NOTE | Routin | 07/05/2016 | | Results for this | | | e | 12:55 PM | | procedure are in the | | | | PDT | | results section. | + +--------+ + + + | CT NECK SOFT TISSUE | Routin | 06/27/2016 | Odynophagia | Results for this | | W CONTRAST | e | 3:34 PM | | procedure are in the | | | | PDT | | results section. | + +--------+ + + + | YELENA DENTON | Routin | 06/27/2016 | Odynophagia | Results for this | | | e | 3:20 PM | | procedure are in the | | | | PDT | | results section. | + +--------+ + + + documented in this encounter Results PROCEDURE NOTE (07/05/2016 12:55 PM PDT)CT NECK SOFT TISSUE W CONTRAST (06/27/2016 3:34 [...] | | | + +---------+ + + CORRIE, POC (06/27/2016 3:20 PM PDT) + +-------+ + + + | Component | Value | Ref Range | Performed | Pathologist | | | | | At | Signature | + +-------+ + + + | CREATININE, | 0.6 | 0.6 - 1.1 mg/dL | [facility] - | | | POC | | | [facility] | | | | | | [facility] | | | | | | OF CARE | | | | | | TESTS | | + +-------+ + + + + + | Specimen | + + | Blood | + + + + + + + | Performing | Address | City/State/Zipcode | Phone Number | | Organization | | | | + + + + + | [facility] | [address] | [place], [place] | | | [facility] | [address] | [address] | | | TESTS | | | | + + + + + documented in this encounter Visit Diagnoses + + | Diagnosis | + + | Odynophagia Dysphagia, unspecified | + + documented in this encounter Administered Medications + +---------+ +--------+------+------+ | Medication Order | MAR | Action | Dose | Rate | Site | | | Action | Date | | | | + +---------+ +--------+------+------+ | iohexol (OMNIPAQUE) 350 mg | IV Push | 06/28/19 | 100 mL | | | | iodine/mL injection 100 mL 100 | | 17 3:35 | | | | | mL, intravenous, ONCE, 1 dose, | | PM PDT | | | | | 06/27/16 at 1615 | | | | | | + +---------+ +--------+------+------+ +---+---+ | | | +---+---+ documented in this encounter"
--- OUTSIDE RECORDS SUMMARY | ~2018-11-18 | XMS | Encounter Summary ---
Demographics + + + | Address | [address] [place] [address] St. | | | [place] [address] | + + + | Home Phone | | + + + | Preferred Language | Unknown | + + + | Marital Status | | + + + | Restorationist Affiliation | NON | + + + [...] Team Providers + +------+ + | Care I&C Tech Name | Role | Phone | [...] as of this encounter Progress Notes Interface, Trim Attacher In - 02/23/2006 1:01 AM PSTCLINIC DATE: [...] took her to the emergency room in [place]. They found an unremarkable examination and discharged [...] had a brain MRI scan completed in [place], which was read as showing right hippocampal [...] now . She is living alone in [place]. Her father and stepmother live nearby and are supportive. They actually drove her to the appointment today. She smokes a pack of cigarettes per day. She drinks alcohol only very rarely. She denies any other recreational drug use (she did have a negative tox screen on December 18 in the emergency room in [place]). PHYSICAL EXAMINATION: In general, this is a [...] are intact in all four extremities. COORDINATION: Tbefwa-hg-pfbb and nukq-uz-xrmn are within normal limits. Casual gait, tandem gait, heel walk, and toe walk are also within normal limits. LABORATORY DATA: The serologic findings are described above. A brain MRI scan completed in [place] is available for review. It is of [...] issues are sorted out. Isaac Long M.D. Passenger [place], Neurology RODGER/leticia cc: GARRY WAY MD [address] [place] [id number] signed by Interface, Trim Attacher In at 02/23/2006 1:01 AM PSTdocumented in this encounter Plan of Treatment +--------+---------+ + + + | Date | Type | Specialty | Care Team | Description | +--------+---------+ + + + | 12/08/ | Office | Neurology | Keon Gerber, | | | 2018 | Visit | | [address] | | | | | | [place] | | | | | | [address] | | | | | | [phone] | | | | | | | | +--------+---------+ + + + documented as of this encounter Visit Diagnoses Not on filedocumented in this encounter
--- OUTSIDE RECORDS SUMMARY | ~2018-11-18 | XMS | Encounter Summary ---
Demographics + + + | Address | [address] [place] [address] St. | | | [place] [address] | + + + | Home Phone | | + + + | Preferred Language | Unknown | + + + | Marital Status | | + + + | Anglican Affiliation | NON | + + + | Race | White | + + + | Ethnic Group | Not or | + + + Author + + + | Author | [facility] | + + + | Organization | [facility] | + + + | [...] Team Providers + +------+ + | Care Reiki Practitioner Name | Role | Phone | + [...] | Myoclonic | MD Jesus | [address] | | | | | seizures | [address] | [address] | | | | | ([facility]) | [address] | Mailcode: | | | | | Procedures | Rd | [facility] | | | | | CONSULT TO | [place], [place] | for Health | | | | | NEUROLOGY | [address] | and Healing, | | | | | | Phone: | [address], | | | | | | [phone] | 8th Floor | | | | | | Fax: | [place], [place] | | | | | | [phone] | [address] | | | | | | | Phone: | | | | | | | [phone] | | | | | | | Fax: | | | | | | | [phone] | +--------+--------+ + + + + Reason [...] + + | 12/09/ | Emergency | [facility] Emergency | Jesus Khan MD | | | 2017 | | Department [address] | [address] | | | | | [address] | [address] | | | | | [facility] | [place], [place] | | | | | [place], [place] | [address] | | | | | [address] | [phone] | | | | | [phone] | | | +--------+ + + + [...] MD - 12/09/2017During your visit in the [facility] ED, you had labs and a neurology evaluation. 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 They also want to see tee htafield in the [facility] Neurology Epilepsy clinic (see contact information). We [...] | 60 | 1 | 12/10/19 | 01/08/ | | (KEPPRA) 500 mg oral | [...] | | 2019 | Visit | | [address] | | | | | | [place], [place] | | | | | | [address] | | | | | | [phone] | | | | | | | [...] | | | POC | | | [facility] | | | | | | BONY [...] | + + + + + | [facility]U KOTHARI | [address] | [place], [place] | | | [facility] POINT OF CARE | [address] | [address] | | | TESTS | | | [...] ranges for Lymphocyte % in effect August 01, | [facility] | | 2018. New reference ranges for MCV, MCHC, PLT, [...] | + + + + + | [facility] | [address] | [place] [address] | | | SERVICES, CORE | NATASHA [...] [facility] | [address] | [place] [address] | | | SERVICES, CORE | NATASHA [...] | | | LABORATORY | | | [place] | | | SERVICES, | | | [...] the MDRD equation recommended by the | [facility] | | National Kidney Disease Education Program. Estimated GFR | LABORATORY | | Interpretive Information: <60 mL/min/1.73 sq | [facility] | | m Chronic Kidney Disease <15 mL/min/1.73 | | | sq m Kidney Failure Estimated GFR greater | | | that 60 mL/min/1.73 sq m is of limited [...] [facility] | [address] | [place] [address] | | | SERVICES, CORE | [address] | | | + + + + + NEO DENISE ONLY (12/09/2017 2:08 PM PDT) + + + [...] | [facility] | | | GRAVITY | Minatare performed by | | LABORATORY | | [...] | + + + + + | [facility] | [address] | [place] [address] | | | SERVICES, [facility] | [address] | | | + + + + + ED INFORMATION EXCHANGE (12/09/2017 1:48 PM PDT) + + | Specimen | + + | | + + + + + | Narrative | Performed At | + + + | [id number] [id number] This patient has registered at the | [facility] | | [facility] Emergency Department For more | MEDICAL | | information visit: | TECHNOLOGIES | | [email or web address] | | | [email or web address] Security Events No [...] Type Major Type Diagnoses or Chief Complaint Oct | | | 2017 [facility] [place] Emergency | | | Emergency 10,800. l side pain Dec 02, 2017 [facility] | | | 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 E.D. Visit Count (12 mo.) Facility Visits [facility] | | | [facility] [address] [address] Total 2 | | | Note: Visits indicate total known visits. PDMP Report Rx | | | Details (6 Mo.) Fill Date Drug Description Qty. Prescriber CS MED | | | 2017-12-06 ZOLPIDEM TARTRATE 10 MG TABLET 30 MOSHE HUFFP 4 0 | | | 2017-11-29 LORAZEPAM 0.5 MG TABLET 10 VIRIDIANASARAH DARDEN, STUDENT ACCOUNTS COORDINATOR 4 0 | | | 2017-11-19 LORAZEPAM 0.5 MG TABLET 10 VIRIDIANA KATALINA, STUDENT ACCOUNTS COORDINATOR 4 0 | | | 2017-11-12 OXYCODONE HCL 10 MG TABLET 120 VIRIDIANA KATALINA, STUDENT ACCOUNTS COORDINATOR 0 | | | 2017-11-08 ZOLPIDEM TARTRATE 10 MG TABLET 30 VIRIDIANA KATALINA, STUDENT ACCOUNTS COORDINATOR 4 | | | 0 2017-10-11 OXYCODONE HCL 10 MG TABLET 120 VIRIDIANA KATALINA, | | | STUDENT ACCOUNTS COORDINATOR 0 2017-10-10 ZOLPIDEM TARTRATE 10 MG TABLET 30 VIRIDIANA | | | KATALINA, STUDENT ACCOUNTS COORDINATOR 4 0 2017-09-13 ZOLPIDEM TARTRATE 10 MG TABLET 30 | | | VIRIDIANADAX DARDEN, STUDENT ACCOUNTS COORDINATOR 4 0 2017-09-10 OXYCODONE HCL 10 MG TABLET 120 | | | VIRIDIANADAX DARDEN, STUDENT ACCOUNTS COORDINATOR 0 2017-08-16 ZOLPIDEM TARTRATE 10 MG TABLET | | | 30 VIRIDIANADAX DARDEN, STUDENT ACCOUNTS COORDINATOR 4 0 2017-08-12 OXYCODONE HCL 10 MG TABLET | | | 120 VIRIDIANADAX RODRIGUEZTT, STUDENT ACCOUNTS COORDINATOR 0 2017-07-17 ZOLPIDEM TARTRATE 10 MG | | | TABLET 30 VIRIDIANADAX DARDEN, STUDENT ACCOUNTS COORDINATOR 4 0 2017-07-12 OXYCODONE HCL 10 MG | | | TABLET 120 VIRIDIANA DARDEN, STUDENT ACCOUNTS COORDINATOR 0 2017-06-19 ZOLPIDEM TARTRATE | | | 10 MG TABLET 30 VIRIDIANA DARDEN, STUDENT ACCOUNTS COORDINATOR 4 0 2017-06-14 OXYCODONE HCL | | | 10 MG TABLET 120 VIRIDIANA DARDEN, STUDENT ACCOUNTS COORDINATOR 0 Rx Summary (12 Mo.) | | | Metric Count CS II-V Rx 16 CS-II Rx 1 Quantity Dispensed 1,730 | | | Unique Prescribers 2 Unique Pharmacies 1 Benzos 0 Opioids 11 | | | Long Acting Opioids 0 The above information is provided for | | | the sole purpose of patient treatment. Use of this information | | | beyond the terms of Data Sharing Memorandum of Understanding and | | | License Agreement is prohibited. In certain cases not all visits may | | | be represented. Consult the aforementioned facilities for | | | additional information. 2018 [employer] - | | | [place], [place] - [email or web address] | | + + + + + | Procedure Note | + + | Service Account, Rtf Results Inbound - 12/09/2017 1:50 PM PDT Formatting of this | | note might be different from the original.MELISSA?NOTIFICATION?12/09/2017 13:48?MARJORIE, | | ANIKET Barron? patient has registered at the [facility] | | [place] [facility] For more information visit: | | [email or web address] Security | | EventsNo recent Security Events currently on fileED Care GuidelinesThere are currently | | no ED Care Guidelines in [place] for this patient. Please check your facility's medical | | records system.Recent Emergency Department Visit SummaryAdmit Date Facility City State | | Type Major Type Diagnoses or Chief Complaint Dec 09, 2017 [facility] | | [place] Emergency Emergency 10,800. l side pain Dec 02, [address] [facility] [address] | | 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 E.D. | | Visit Count (12 mo.)Facility Visits [facility] 1 [facility]. | | [facility] 1 Total 2 Note: Visits indicate total known visits. PDMP ReportRx | | Details (6 Mo.)Fill Date Drug Description Qty. Prescriber MED 2017-12-06 ZOLPIDEM | | TARTRATE 10 MG TABLET 30 KIMBERLY HUGHES BOOT TRIMMER 4 0 2017-11-29 LORAZEPAM 0.5 MG TABLET 10 | | VIRIDIANA ELSALLIGOTT, STUDENT ACCOUNTS COORDINATOR 4 0 2017-11-19 LORAZEPAM 0.5 MG TABLET 10 VIRIDIANA MICHAELTT, STUDENT ACCOUNTS COORDINATOR 4 | | 0 2017-11-12 OXYCODONE HCL 10 MG TABLET 120 [facility]IDIANA [facility], STUDENT ACCOUNTS COORDINATOR 0 2017-11-08 ZOLPIDEM | | TARTRATE 10 MG TABLET 30 VIRIDIANA ELSALLIGOTT, STUDENT ACCOUNTS COORDINATOR 4 0 2017-10-11 OXYCODONE HCL 10 MG | | TABLET 120 VIRIDIANA MCELLIGOTT, STUDENT ACCOUNTS COORDINATOR 0 2017-10-10 ZOLPIDEM TARTRATE 10 MG TABLET 30 VIRIDIANA | | MCELLIGOTT, STUDENT ACCOUNTS COORDINATOR 4 0 2017-09-13 ZOLPIDEM TARTRATE 10 MG TABLET 30 VIRIDIANA ELSALLIGOTT, STUDENT ACCOUNTS COORDINATOR 4 | | 0 2017-09-10 OXYCODONE HCL 10 MG TABLET 120 VIRIDIANA MCELLIGOTT, STUDENT ACCOUNTS COORDINATOR 0 2017-08-16 ZOLPIDEM | | TARTRATE 10 MG TABLET 30 VIRIDIANA MCELLIGOTT, STUDENT ACCOUNTS COORDINATOR 4 0 2017-08-12 OXYCODONE HCL 10 MG | | TABLET 120 VIRIDIANA MCELLIGOTT, STUDENT ACCOUNTS COORDINATOR 0 2017-07-17 ZOLPIDEM TARTRATE 10 MG TABLET 30 VIIRDIANA | | MCELLIGOTT, STUDENT ACCOUNTS COORDINATOR 4 0 2017-07-12 OXYCODONE HCL 10 MG TABLET 120 VIRIDIANA [facility], STUDENT ACCOUNTS COORDINATOR 0 | | 2017-06-19 ZOLPIDEM TARTRATE 10 MG TABLET 30 VIRIDIANA [facility], STUDENT ACCOUNTS COORDINATOR 4 0 2017-06-14 | | OXYCODONE HCL 10 MG TABLET 120 VIRIDIANA [facility], STUDENT ACCOUNTS COORDINATOR 0 Rx Summary (12 Mo.)Metric Count | [...] for | | additional information. ? 2018 [employer] [facility], | | [place] - [email or web address] | |Rx Details (6 Mo.) | |Fill Date Drug Description Qty. Prescriber CS MED | |2017-12-06 ZOLPIDEM TARTRATE 10 MG TABLET 30 KIMBERLY HUGHES, BOOT TRIMMER 4 0 | |2017-11-29 LORAZEPAM 0.5 MG TABLET 10 VIRIDIANA [facility], STUDENT ACCOUNTS COORDINATOR 4 0 | |2017-11-19 LORAZEPAM 0.5 MG TABLET 10 VIRIDIANA [facility], STUDENT ACCOUNTS COORDINATOR 4 0 | |2017-11-12 OXYCODONE HCL 10 MG TABLET 120 VIRIDIANA [facility], STUDENT ACCOUNTS COORDINATOR 0 | |2017-11-08 ZOLPIDEM TARTRATE 10 MG TABLET 30 VIRIDIANA [facility], STUDENT ACCOUNTS COORDINATOR 4 0 | |2017-10-11 OXYCODONE HCL 10 MG TABLET 120 VIRIDIANA [facility], STUDENT ACCOUNTS COORDINATOR 0 | |2017-10-10 ZOLPIDEM TARTRATE 10 MG TABLET 30 VIRIDIANA [facility], STUDENT ACCOUNTS COORDINATOR 4 0 | |2017-09-13 ZOLPIDEM TARTRATE 10 MG TABLET 30 VIRIDIANA [facility], STUDENT ACCOUNTS COORDINATOR 4 0 | |2017-09-10 OXYCODONE HCL 10 MG TABLET 120 [facility], STUDENT ACCOUNTS COORDINATOR 0 | |2017-08-16 ZOLPIDEM TARTRATE 10 MG TABLET 30 VIRIDIANA DARDEN, STUDENT ACCOUNTS COORDINATOR 4 0 | |2017-08-12 OXYCODONE HCL 10 MG TABLET 120 VIRIDAINA RODRIGUEZTT, STUDENT ACCOUNTS COORDINATOR 0 | |2017-07-17 ZOLPIDEM TARTRATE 10 MG TABLET 30 VIRIDIANADAX RODRIGUEZTT, STUDENT ACCOUNTS COORDINATOR 4 0 | |2017-07-12 OXYCODONE HCL 10 MG TABLET 120 VIRIDIANA RODRIGUEZTT, STUDENT ACCOUNTS COORDINATOR 0 | |2017-06-19 ZOLPIDEM TARTRATE 10 MG TABLET 30 VIRIDIANA RODRIGUEZTT, STUDENT ACCOUNTS COORDINATOR 4 0 | |2017-06-14 OXYCODONE HCL 10 MG TABLET 120 VIRIDIANA RODRIGUEZTT, STUDENT ACCOUNTS COORDINATOR 0 | | | |Rx Summary (12 [...] facilities for additional information. | |? 2018 [employer] - [place], [place] - [email or web address] | + + + + + + + | Performing | Address | City/State/Zipcode | Phone Number | | Organization | | | | + + + + + | [facility] | [address], | [place], [place] | [phone] | | TECHNOLOGIES | [address] | [address] | | + + + + + [...]
--- OUTSIDE RECORDS SUMMARY | ~2018-11-18 | XMS | Encounter Summary ---
Demographics + + + | Address | [address] [place] [address] St. | | | [place] [address] | + + + | Home Phone [...] + + + | Author | [facility] | + + + | Organization | [facility] | + + + | [...] Team Providers + +------+ + | Care Appian Bpm Developer Name | Role | Phone | + +------+ + | Melvina TalleyP | PCP | | + +------+ + Encounter Details +--------+ + + + + | Date | Type | Department | Care Team | Description | +--------+ + + + + | 02/15/ | Telephone | Otolaryngology | Gloria | | | 2015 | | Laryngology Services | Lucy Ohara PA-C | | | | | at [facility] [address] | [address] | | | | | [address] [place], | [place], [place] | | | | | [place] [address] | [address] | | | | | [phone] | [phone] | | | | | | | [...] | | 2019 | Visit | | [address] | | | | | | [place], [place] | | | | | | [address] | | | | | | [phone] | | | | | | | | +--------+---------+ + + + documented as of this encounter Visit Diagnoses Not on filedocumented in this encounter"
--- OUTSIDE RECORDS SUMMARY | ~2018-11-18 | XMS | Encounter Summary ---
Demographics + + + | Address | [address] [place] [address] St. 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 | | | | | | of esophagus | Fax: | | | | | | | [phone] | | +--------+--------+ + + + + Encounter Details +--------+---------+ + + + | Date | Type | Department | Care Team | Description | +--------+---------+ + + + | 08/17/ | Office | Otolaryngology | Gloria, | Globus sensation | | 2017 | Visit | Laryngology Services | Lucy Ohara PA-C | (Primary Dx); | | | | at [facility] [address] | [address] | Laryngeal | | | | [address] [place], | [place], [place] | hyperfunction; | | | | [place] [address] | [address] | Dysphonia; | | | | [phone] | [phone] | Odynophagia; Serous | | | | | | otitis media, left; | | | | | | Cough | +--------+---------+ + + + Social History [...] + + + + | Weight | 84.8 kg (187 lb) | 08/17/2016 1:47 PM | | | | | PDT | | + + + + + | Height | 160 cm (5' 3") | 08/17/2016 1:47 PM | | | | | PDT | | + + + + + | Body Mass Index | 33.13 | 08/17/2016 1:47 PM | | | | | PDT | | + + + + + documented in this encounter Patient Instructions Patient Instructions Guadalupe Faulkner MA - 08/17/2016 2:00 PM PDTThank you for choosing [facility] Department of Otolaryngology for your health care needs. If you need to speak to an ENT physician after normal business hours, please call [phone] and ask to have the ENT phys ician telephone technician paged. documented in this encounter Progress Notes Guadalupe Faulkner MA - 08/17/2016 2:00 PM PDTlaryngoscopy procedure was performed using the following instruments: Description #1: laryngoscope Serial ID #1: [id number] Lucy Martino PA-C - 08/17/2016 2:00 PM PDTFormatting of this note might be different from the origina l. PATIENT NAME:Aniket Kendall [facility] MR#: [id number] : 1980 REFERRING PROVIDER: TAMEKA Yin [facility] [address] [place] [address] PRIMARY CARE PROVIDER: TAMEKA Mistry CLINIC: [facility] REASON FOR FOLLOW-UP: Chief Complaint Patient presents with Follow-up visit HPI: Aniket Kendall is a 36 y.o. female who was last seen at the [facility] for sensation of a lump in her throat, hoarseness and throat pain upo n swallowing. It was recommended that she undergo back to back sessions of voice therapy gi shady the distance she has to drive from [place]. She returns today noting that she feels the voice therapy has helped improve the quality of her voice during the session, but she has found it hard to continue during conversation. Sh dejuan still feels the sensation of her lump in her throat which is her most bothersome symptom. She continues to have pain with radiating otalgia when she turns her head while swallowing l iquids. She had a CT neck 06/27/16 which demonstrated no styloid elongation or concerning abn ormalities. This pain while swallowing occurs 1-2/day and is not that bothersome. It has not gotten worse. She reports feeling fluid on her ears since a respiratory tract infection 4 w eeks ago. She reports developing sinus pressure more recently with purulent nasal drainage, but upon further questioning reports frontal sinus pressure since prior to her sinus surgery with Dr. Nazario. She is not currently using a nasal steroid. She reports a productive cough has persisted since her cold. She has not had a chest x-ray or been treated with antibiotics . She is waking up at night due to the cough. She is also working on smoking cessation which could be related to her productive cough. She has decreased from 1 PPD to 6 cigarettes a da y. She is not using a medication to help. She finds it's not the nicotine that she craves, i t's the habit of when she typically smokes that has been hard to break. She has been trying to find ways to replace the habit. She is motivated to quit smoking so her insurance will ap prove a hysterectomy for adenomyosis. She reports needing to be tested for nicotine prior surgery to be approved. She hopes to have the surgery soon. She has been unable to get her CPAP machine due to trouble with [employer] companies. She has yet to get it and it's been 2 month s. She had to cancel her follow-up with sleep medicine due to not having the machine yet. e reports her dysphagia symptoms are the same. She has been eating a gluten free diet for past 3 months due to gluten intolerance and finds some of the gluten free foods like rice and gluten free pasta are harder to swallow. She is maintained on a proton-pump inhibitor. VOCAL DEMANDS: Unchanged from previous visit. PMHx: [...] Ht 1.6 m (5' 3") | Wt 84.8 kg (187 lb) | BMI 33.13 kg/(m^2) Gen: She is a 36 y.o. female. She is awake, alert and comfortable with the examination. Her weight is elevated. She is normocephalic. Ears: The pinnae are normal. External auditory canals show minimal cerumen bilaterally. The right tympanic membrane is clear with normal anatomic landmarks and an aerated middle ea r space. The left tympanic membrane demonstrate air-bubbles and clear fluid behind it. Nose: The nasal dorsum is straight and [...] The dentition is fair. The mucosa is moist and pale, but shows no lesions or masses. The tonsils are absent and the fossae s how no lesions. Neck: The neck is atraumatic. There is no lymphadenopathy noted in the anterior, posterior , digastric or submental triangles. Chest: Chest rise is symmetric and there is no audible wheezing, stridor or wet vocal qual ity. Neuro: Extraoccular movements are grossly intact. There is symmetric movement noted of th e face. Hearing is grossly intact. Palatal elevation is symmetric and full. Tongue protru jamar is midline. VOICE EVALUATION: Perceptual voice evaluation demonstrates dysphonia which is mild. Throat focused, but improved from prior exam. The pitch is appropriate for a female and shows dimi nished range. Vocal intensity is appropriate and shows diminished upper range. There is 0 r oughness, 0 breathiness, and 1+ tightness appreciated. There is no tremor noted with jerzy tained vowel phonation. I am unable to detect voice breaks. LARYNGOSCOPY: Flexible fiberoptic laryngoscopy was performed today. The patient was spraye d with Lidocaine and Phenylephrine to each nostril prior to the examination after verbal con sent. As the scope was passed through the nasal passageway there was dried, green mucus over the anterior vestibule bilaterally. There were signs of inflammation of the nasal mucosa. T here was not noted to be purulent mucus draining from the sinuses and no purulent drainage w as appreciated down the posterior pharyngeal wall. The epiglottis was crisp. Prominent lingu al tonsils fill the vallecula. The almost verrucous appearing lesion on the left base of ton russ is unchanged from her initial exam. The aryepiglottic folds are intact and symmetric isac aterally. The hypopharynx does not demonstrate pooling. The interarytenoid space demonstra savannah no lesions. It does not demonstrate pachydermia. The false vocal folds are symmetric a nd without lesions or masses. False fold voicing (plica ventricularis) is not noted today. The true vocal folds show normal and symmetric motion bilaterally. There is moderate laryng eal hyperfunction which is most notable in the anterior-posterior dimension. There is not no joshua to be increased thick laryngeal mucous. Cricothyroid function appears to be intact bilat erally. While closure is difficult to assess completely without stroboscopy, it does appear to be complete. The right medial edge is crisp and shows no lesions or masses. The left me dial edge is crisp and shows no lesions or masses. The mucosal covering is not edematous. T here is no erythema present today. There are no obvious vascular ectasias present. The vo henny processes do not demonstrate granulomas or contact ulcers. ASSESSMENT: Ms. 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 I do think she could improve her globus sensation, her most bothersome symptom, with voice therapy and discussed the importance of home practice of her exercises provided during therapy. She will return in a month when her daughter has to come back for an appointment to undergo another session of voice therapy. We did discus that it i s harder to see improvement with inconsistent therapy, but she will try to do her exercises in the interim. She continues to have odynophagia without concerning findings on her CT neck or etiology identified on her prior upper endoscopy. We discussed that the only other work- up we could offer to try to identify an etiology of this pain would be direct microlaryngosc opy. Given that the pain only occurs when swallowing liquids in a certain position and is no t getting worse I think her risk of a concerning etiology is quite low. We agreed to just ob serve this for now since she is not that bothered by it and currently has several other heal th concerns to attend to. There were no crackles to ausculation to suggest pneumonia with he r persistent, productive cough. We discussed that she can notice a productive cough as she q uits smoking related to increased ciliary clearance of mucus. There was not purulent drainag e appreciated to suggest acute sinusitis and need for antibiotics. She could restart intrana cooper steroids due to signs of nasal inflammation and her serous otitis media, but the evidenc e behind this resolving serous otitis media sooner is not that compelling. PLAN: After a thorough discussion of our findings today, I have recommended continuing voi ce therapy to address her globus sensation and laryngeal hyperfunction. I will see Aniket tasha wakefield in 6 months given her persistent odynophagia and smoking. She will contact the clinic in the interim if she notes worsening dysphonia, otalgia, odynophagia or hemoptysis. Cathleen Castro PA-C [facility] Department of Otolaryngology and Head and Neck Surgery documented i n this encounter Plan of Treatment +--------+---------+ + + + | Date | Type | Specialty | Care Team | Description | +--------+---------+ + + + | 12/08/ | Office | Neurology | Keon Gerber, | | | 2018 | Visit | | [address] | | | | | | [place], [place] | | | | | | [address] | | | | | | [phone] | | | | | | | | +--------+---------+ + + + documented as of this encounter Procedures + +--------+ + + + | Procedure Name | Priori | Date/Time | Associated Diagnosis | Comments | | | ty | | | | + +--------+ + + + | [place] | Routin | 08/17/2016 | Globus sensation | | | LARYNGOSCOPY,FLEXIBL | e | 8:04 PM | Laryngeal | | | E, DIAGNOSTIC | | PDT | hyperfunction | | | | | | Dysphonia | | | | | | Odynophagia | | + +--------+ + + + documented in this encounter Visit Diagnoses + + | Diagnosis | + + | Globus sensation - Primary Gastrointestinal malfunction arising from mental factors | + + | Laryngeal hyperfunction Other diseases of larynx | + + | Dysphonia | + + | Odynophagia Dysphagia, pharyngeal phase | + + | Serous otitis media, left | + + | Cough | + + documented in this encounter
--- OUTSIDE RECORDS SUMMARY | ~2018-11-18 | XMS | Encounter Summary ---
Demographics + + + | Address | [address] [place] [address] St. | | | [place] [address] | + + + | Home Phone | | + + + | Preferred Language | Unknown | + + + | Marital Status | | + + + | Samaritan Affiliation | NON | + + + | Race | White | + + + | Ethnic Group | Not or | + + + Author + + + | Author | [facility] | + + + | Organization | [facility] | + + + | Address | [...] Team Providers + +------+ + | Care Instantizer Operator Name | Role | Phone | [...] | | | | | | | [facility] [place] | | | | | | | [address] | +--------+--------+ + + + + Encounter Details +--------+---------+ + + + | Date | Type | Department | Care Team | Description | +--------+---------+ + + + | 03/17/ | Office | [place] [facility] | Haroon Biggs, | Chronic ethmoidal | | 2016 | Visit | Center at [facility] [address] | MD,MPH | sinusitis (Primary | | | | [address] | | Dx); Chronic | | | | Mailcode: [address] | | maxillary sinusitis; | | | | [place] for [facility] | | 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 female who presents for 2 week follow up of sinus surgery. She is not having any significant difficulties. She denies abnormal bleeding, vero n, vision disturbance, clear fluid drainage. Procedures Performed (03/01/2015): 1. Revision bilateral maxillary antrostomy 2. Revision bilateral anterior ethmoidectomy 3. Revision sptoplasty 4. Outfracture bilateral inferior turbinates Findings: Evidence of prior inferior septoplasty with intact uncinate processes. Obstructiv e septal deviation with superior widening. Bilateral maxillary and anterior ethmoid mucosal inflammation. Medialization of inferior turbinates. Total SNOT-22 score: 47 Current Outpatient Prescriptions Medication Sig cyclobenzaprine 10 mg oral tablet Take 10 mg by mouth every twelve hours. Do not use lo nger than 2-3 weeks. HYDROcodone-acetaminophen (NORCO) 5-325 mg oral tablet Take 1 tablet by mouth every fou r hours as needed. Not to exceed 3250 mg of acetaminophen from all products per 24 hour dheeraj od. lisinopril 5 mg oral tablet Take 5 mg by mouth once daily. Nebivolol 10 mg oral tablet Take 10 mg by mouth every twelve hours. omeprazole 20 mg oral capsule,delayed release(DR/EC) Take 20 mg by mouth every twelve h ours. predniSONE 10 mg oral tablet Take 3 tablets x 4 days, 2 tablets x 4 days, 1 tablet x 4 days. Begin 1 week prior to surgery spironolactone 25 mg oral tablet Take 25 mg by mouth two times daily. trimethoprim-sulfamethoxazole 160-800 mg oral tablet Take 1 tablet by mouth two times d aily. zolpidem 10 mg oral tablet Take 10 [...] retained secretions removed. No adverse synechiae were noted. IMPRESSION/PLAN: Will continue with medication regimen and follow up is scheduled. She wi ll call with any problems in the meantime. Haroon Biggs M.D., M.P.H. Fellow, [facility] Instructor, Rhinology and Sinus Surgery Department of Otolaryngology/Head and Neck Surgery [email or web address] documented in this encounter Plan of Treatment +--------+---------+ + + + | Date | Type | Specialty | Care Team | Description | +--------+---------+ + + + | 12/08/ | Office | Neurology | Keon Gerber A, | | | 2018 | Visit | | [address] | | | | | | [place], [place] | | | | | | [address] | | | | | | [phone] | | | | | | | | +--------+---------+ + + + documented as of this encounter Procedures + +--------+ + + + | Procedure Name | Priori | Date/Time | Associated Diagnosis | Comments | | | ty | | | | + +--------+ + + + | [place] NASAL | Routin | 03/17/2015 | Chronic ethmoidal | | | SCOPE,BX/RMV | e | 8:54 AM | sinusitis Chronic | | | POLYP/DEBRID [...]
--- OUTSIDE RECORDS SUMMARY | ~2018-11-18 | XMS | Encounter Summary ---
Demographics + + + | Address | [address] [place] [address] St. | | | [place] [address] | + + + | Home Phone [...] Team Providers + +------+ + | Care Landing Scaler Name | Role | Phone | + +------+ + | Melvina TalleyP | PCP | | + +------+ + Encounter Details +--------+ + + + + | Date | Type | Department | Care Team | Description | +--------+ + + + + | 06/11/ | [facility] [place] | Otolaryngology | Gloria, | Odynophagia (Primary | | 2016 | | Laryngology Services | Lucy E, PA-C | Dx) | | | | at [address] | [address] | | | | | [address] [place], | [place], [place] | | | | | [place] [address] | [address] | | | | | [phone] | [phone] | | | | | | | [...] | | 2018 | Visit | | [address] | | | | | | [place], [place] | | | | | | [address] | | | | | | [phone] | | | | | | | | +--------+---------+ + + + documented as of this encounter Visit Diagnoses + + | Diagnosis | + + | Odynophagia - Primary Dysphagia, unspecified | + + documented in this encounter"
--- OUTSIDE RECORDS SUMMARY | ~2018-11-18 | XMS | Encounter Summary ---
Demographics + + + | Address | [address] [place] [address] St. | | | [place] [address] | + + + | Home Phone [...] + + + | Author | [facility] | + + + | Organization | [facility] | + + + | [...] Team Providers + +------+ + | Care Oil Changer Name | Role | Phone | + +------+ + | Unknown | PCP | Unavailable | + +------+ + Encounter Details +--------+ + + + + | Date | Type | Department | Care Team | Description | +--------+ + + + + | 12/03/ | Abstract | Digestive Health | Clinic, | | | 2018 | | [place] [facility] [address] | Gastroenterology | | | | | [address] | | | | | | Mailcode: [place] | | | | | | for Health and | | | | | | Healing, [address] | | | | | | [place], [place] | | | | | | [address] | | | | | | [phone] | | | +--------+ + + + [...] | | 2019 | Visit | | [address] | | | | | | [place], [place] | | | | | | [address] | | | | | | [phone] | | | | | | | | +--------+---------+ + + + documented as of this encounter Visit Diagnoses Not on filedocumented in this encounter"
--- OUTSIDE RECORDS SUMMARY | ~2018-11-18 | XMS | Encounter Summary ---
Demographics + + + | Address | [address] [place] [address] St. | | | [place] [address] | + + + | Home Phone | | + + + | Preferred Language | Unknown | + + + | Marital Status | | + + + | Orthodoxy Affiliation | NON | + + + | Race | White | + + + | Ethnic Group | Not or | + + + Author + + + | Author | [facility] | + + + | Organization | [facility] | + + + | [...] Team Providers + +------+ + | Care Scrap Shear Operator Name | Role | Phone | [...] [id number] [facility] | | | | | [place] [address] | [address] | Hospital | | | | | TISSUE | Phone: | [place], [place] | | | | | CONTRAST | [phone] | [address] | | | | | | Fax: | Phone: | | | | | | [phone] | [phone] | | | | | | | Fax: | | | | | | | [phone] | +--------+--------+ + + + + Diagnostic [...] [address] [facility] | | | | | [place] [address] | [address] | Hospital | | | | | TISSUE | Phone: | [place], [place] | | | | | CONTRAST | [phone] | [address] | | | | | | Fax: | Phone: | | | | | | [phone] | [phone] | | | | | | | Fax: | | | | | | | [phone] | +--------+--------+ + + + + Reason [...] [address] [facility] | | | | | [place] [address] | [address] | Hospital | | | | | TISSUE | Phone: | [place], [place] | | | | | CONTRAST | [phone] | [address] | | | | | | Fax: | Phone: | | | | | | [phone] | [phone] | | | | | | | Fax: | | | | | | | [phone] | +--------+--------+ + + + + Encounter Details +--------+ + + + + | Date | Type | Department | Care Team | Description | +--------+ + + + + | 06/27/ | Hospital | Diagnostic Imaging | Gloria, | | | 2016 | Encounter | Services at [facility] | Lucy Ohara PA-C | | | | | [address] | [address] | | | | | Ceci Christopher Mailcode: | [place], [place] | | | | | [address] [facility] | [address] | | | | | [place], [place] | [phone] | | | | | [address] | | | | | | [phone] | | | +--------+ + + + [...] | | 2019 | Visit | | [address] | | | | | | [place], [place] | | | | | | [address] | | | | | | [phone] | | | | | | | [...] [place] | [address] | [place], [place] | | | [place] | [address] | [address] | | | TESTS | | | [...]
--- OUTSIDE RECORDS SUMMARY | ~2018-11-18 | XMS | Encounter Summary ---
Demographics + + + | Address | [address] [place] [address] St. | | | [place] [address] | + + + | Home Phone | | + + + | Preferred Language | Unknown | + + + | Marital Status | | + + + | Islam Affiliation | NON | + + + | Race | White | + + + | Ethnic Group | Not or | + + + Author + + + | Author | [facility] | + + + | Organization | [facility] | + + + | [...] Providers + +------+ + | Care Manager Protein Name | Role | Phone | + [...] Mailcode: | | | | | | [address] | | | | | | Health and Healing, | | | | | | Building | | | | | | Floor [place], [place] | | | | | | [address] | | | | | | [phone] | | | +--------+ + + + [...] | | 2019 | Visit | | [address] | | | | | | [place], [place] | | | | | | [address] | | | | | | [phone] | | | | | | | | +--------+---------+ + + + documented as of this encounter Visit Diagnoses Not on filedocumented in this encounter"
--- OUTSIDE RECORDS SUMMARY | ~2018-11-18 | XMS | Encounter Summary ---
Demographics + + + | Address | [address] [place] [address] St. | | | [place] [address] | + + + | Home Phone | | + + + | Preferred Language | Unknown | + + + | Marital Status | | + + + | Yazidi Affiliation | NON | + + + [...] Team Providers + +------+ + | Care Director Of Laboratory Operations Name | Role | Phone | + [...] + + + + | 03/01/ | Anesthesia | [facility] | Avelino Young, | | | 2016 | Event | [facility] | MD Meek MANN Maynor | | | | | and Healing Surgery | [address] | | | | | Center Admitting | [place], [place] | | | | | Desk Located on the | [address] | | | | | 4th floor [address] | [phone] | | | | | [address] [place], | | | | | | [place] [address] | | | +--------+ + + + [...] | | | 0 | | reviewed, PARJazzmine held, anesthetic plan made or approved by [...] | Meds | +------+ + + + | Name | Total | + + + | clindamycin 600mg | 600 mg | + + + | midazolam | 2 mg | + + + | lidocaine 2% | 40 mg | + + + | propofol | 160 mg | + + + | rocuronium | 40 mg | + + + | lidocaine 4% LTA | 4 mL | + + + | dexamethasone | 10 mg | + + + | metoclopramide | 10 mg | + + + | ondansetron | 4 mg | + + + | glycopyrrolate | 0.4 mg | + + + | neostigmine | 2 mg | + + + | fentaNYL | 150 mcg | + + + | LR | 1,100 mL | + + + + + | Name | + + | Insp Constantin | + + | Et Constantin | + + | Insp Sevo | + + | Et Sevo | + + | EtN2O % | + + | Insp N2O % | + + + + | No blood administrations on file. | + + +--------+ + + + | Type | Details | Placement | Removal | +--------+ + + + | Incisi | 03/01/15; nose; 03/01/15; 1509 | 03/01/15 0000 by Jam | 03/01/15 1509 by | | on | | SHERRI Ayoub | Holly Woods, | | | | | RN | +--------+ + + + | Periph | 03/01/15; 0830; Gabrielle Christianson RN ; | 03/01/15 0830 by | 03/01/15 1508 by | | eral | Right; Hand; 20 g; Lidocaine; | Ellie Christianson RN | [place], | | IV | Positive; 03/01/15; 1508 | | RN | +--------+ + + + | Acupun | Bilateral; forearm (P6); Aidan | 03/01/15 1331 by | 03/01/15 1501 by | | cture | pyonex P type needle; 2; | | Holly Woods, | | LDA | 03/01/15; 1501 | | RN | +--------+ + + + documented in this encounter Social History + +-------+ +--------+------+ | Tobacco [...] | | 2019 | Visit | | MD [address] | | | | | | [place], [place] | | | | | | [address] | | | | | | [phone] | | | | | | | | +--------+---------+ + + + documented as of this encounter Visit Diagnoses Not on filedocumented in this encounter Administered Medications + +--------+ +--------+------+------+ | Medication Order | MAR | Action | Dose | Rate | Site | | | Action | Date | | | | + +--------+ +--------+------+------+ | clindamycin (CLEOCIN) IV 600 | Given | 03/01/19 | 600 mg | | | | mg IN D5W (RTU) intravenous, | | 16 10:38 | | | | | INTRAPROCEDURE PRN, Starting Tue | | AM PST | | | | | 03/01/15 at 1038, Until Tue | | | | | | | 03/01/15 at 1213 | | | | | | + +--------+ +--------+------+------+ +---+---+ | | | +---+---+ + +-------+ +-------+---+---+ | dexamethasone (DECADRON) | Given | 03/01/19 | 10 mg | | | | injection intravenous, | | 16 10:51 | | | | | INTRAPROCEDURE PRN, Starting Tue | | AM PST | | | | | 03/01/15 at 1051, Until Tue | | | | | | | 03/01/15 at 1213 | | | | | | + +-------+ +-------+---+---+ +---+---+ | | | +---+---+ + +-------+ +--------+---+---+ | fentaNYL citrate (PF) | Given | 03/01/19 | 50 mcg | | | | (SUBLIMAZE) injection | | 16 12:06 | | | | | INTRAPROCEDURE PRN, Starting Tue | | PM PST | | | | | 03/01/15 at 1042, Until Tue | | | | | | | 03/01/15 at 1213, sedation | | | | | | + +-------+ +--------+---+---+ +-------+ +---------+---+---+ | Given | 03/01/19 | 100 mcg | | | | | 16 10:42 | | | | | | AM PST | | | | +-------+ +---------+---+---+ +---+---+ | | | +---+---+ + +-------+ +--------+---+---+ | glycopyrrolate (EAGLE) | Given | 03/01/19 | 0.4 mg | | | | injection INTRAPROCEDURE PRN, | | 16 12:02 | | | | | Starting 03/01/15 at 1202, | | PM PST | | | | | Until e 03/01/15 at 1213 | | | | | | + +-------+ +--------+---+---+ +---+---+ | | | +---+---+ + + + +---+---+---+ | lactated ringers IV | given by | 03/01/19 | | | | | INTRAPROCEDURE CONTINUOUS PRN, | | 16 12:11 | | | | | Starting 03/01/15 at 0933, | anesthes | PM PST | | | | | Until 03/01/15 at 1213 | iology | | | | | + + + +---+---+---+ +---------+ +---+---+---+ | New Bag | 03/01/19 | | | | | | 16 11:30 | | | | | | AM PST | | | | +---------+ +---+---+---+ | New Bag | 03/01/19 | | | | | | 16 9:33 | | | | | | AM PST | | | | +---------+ +---+---+---+ +---+---+ | | | +---+---+ + +-------+ +------+---+---+ | lidocaine (LTA) 4 % topical | Given | 03/01/19 | 4 mL | | | | solution INTRAPROCEDURE PRN, | | 16 10:42 | | | | | Starting 03/01/15 at 1042, | | AM PST | | | | | Until 03/01/15 at 1213 | | | | | | + +-------+ +------+---+---+ +---+---+ | | | +---+---+ + +-------+ +-------+---+---+ | lidocaine PF (XYLOCAINE MPF) 20 | Given | 03/01/19 | 40 mg | | | | mg/mL (2 %) injection | | 16 10:42 | | | | | INTRAPROCEDURE PRN, Starting Tue | | AM PST | | | | | 03/01/15 at 1042, Until Tue | | | | | | | 03/01/15 at 1213 | | | | | | + +-------+ +-------+---+---+ +---+---+ | | | +---+---+ + +-------+ +-------+---+---+ | metoclopramide HCl (REGLAN) | Given | 03/01/19 | 10 mg | | | | injection intravenous, | | 16 10:51 | | | | | INTRAPROCEDURE PRN, Starting Tue | | AM PST | | | | | 03/01/15 at 1051, Until Tue | | | | | | | 03/01/15 at 1213, nausea/vomiting | | | | | | + +-------+ +-------+---+---+ +---+---+ | | | +---+---+ + +-------+ +------+---+---+ | midazolam (VERSED) injection | Given | 03/01/19 | 2 mg | | | | INTRAPROCEDURE PRN, Starting Tue | | 16 10:37 | | | | | 03/01/15 at 1037, Until Tue | | AM PST | | | | | 03/01/15 at 1213, sedation | | | | | | + +-------+ +------+---+---+ +---+---+ | | | +---+---+ + +-------+ +------+---+---+ | neostigmine (PROSTIGMIN) | Given | 03/01/19 | 2 mg | | | | injection intravenous, | | 16 12:02 | | | | | INTRAPROCEDURE PRN, Starting Tue | | PM PST | | | | | 03/01/15 at 1202, Until Tue | | | | | | | 03/01/15 at 1213 | | | | | | + +-------+ +------+---+---+ +---+---+ | | | +---+---+ + +-------+ +------+---+---+ | ondansetron (ZOFRAN) injection | Given | 03/01/19 | 4 mg | | | | INTRAPROCEDURE PRN, Starting Tue | | 16 11:53 | | | | | 03/01/15 at 1153, Until Tue | | AM PST | | | | | 03/01/15 at 1213 | | | | | | + +-------+ +------+---+---+ +---+---+ | | | +---+---+ + +-------+ +--------+---+---+ | propofol INTRAPROCEDURE PRN, | Given | 03/01/19 | 160 mg | | | | Starting 03/01/15 at 1042, | | 16 10:42 | | | | | Until 03/01/15 at 1213 | | AM PST | | | | + +-------+ +--------+---+---+ +---+---+ | | | +---+---+ + +-------+ +-------+---+---+ | rocuronium (ZEMURON) injection | Given | 03/01/19 | 40 mg | | | | INTRAPROCEDURE PRN, Starting Tue | | 16 10:42 | | | | | 03/01/15 at 1042, Until Tue | | AM PST | | | | | 03/01/15 at 1213, Neuromuscular | | | | | | | block | | | | | | + +-------+ +-------+---+---+ +---+---+ | | | +---+---+ documented in this encounter"
--- OUTSIDE RECORDS SUMMARY | ~2018-11-18 | XMS | Encounter Summary ---
Demographics + + + | Address | [address] [place] [address] St. | | | [place] [address] | + + + | Home Phone [...] + + | Author | [facility] | + + + | Organization | [facility] | + + + | [...] Team Providers + +------+ + | Care Vascular Neurologist Name | Role | Phone | + [...] | | | | status | | [place], [place] | | | | | epilepticus | | [address] | | | | | Procedures | | Phone: | | | | | ND NEW | | [phone] | | | | | PATIENT | | Fax: | | | | | LEVEL V ND | | [phone] | | | | | EST PATIENT [...] (Primary | | 2019 | Visit | [facility] | MD [address] | Dx); RLS (restless | | | | Healing [address] | [facility] [place] | legs syndrome); | | | | [address] Mailcode: | [address] | Abdominal pain, | | | | [facility] | [phone] | unspecified | | | | Health and Healing, | | abdominal location; | | | | Building | | Hypovitaminosis D | | | | Floor [place], [place] | | | | | | [address] | | | | | | [phone] | | | +--------+---------+ + + + [...] RN - 03/14/2018 2:35 PM [facility] M [facility] from 05/06/2013 to [facility] impaxElectronically signed by Chelle Mckeon RN at 9 10:46 AM Keon Navarro MD - 03/14/2018 2:35 PM PST [facility] Consultation Visit Today's Date: [...] the patient. HPI: She was seen at [facility] on 12/09/2017 by neurology resident Antonio [...] multiple neurologists; saw Dr Nguyen [facility] in 2013 most recently who suspected myoclonus. Per patient, she had an EEG which captured t hem and was told that the EEG was normal (work-up done in [place], [place]). She was not started on medications, but referred to [facility] neurology for further evaluation/treatment options. 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 woman who is referred for neurological consultat [facility] for evaluation of a constellation of symptoms, [...] erapy. She had prior MRI's done at [facility], 04/2013; will request imaging. Her examination [...] consistent with her episodic worsening, could con forensic engineer repeating this testing in the future. She [...] PORPHOBILINOGEN, URINE ALA, URINE COMP METABOLIC SET [[id number]] CBC, WITH DIFFERENTIAL [[id number]] VITAMIN D, 25-HYDROXY, SERUM [[id number]] levETIRAcetam 750 mg oral tablet I spent 75 minutes with the patient during the visit. More than half of the visit was spent counseling the patient. Keon Gerber MD Neurology Department [facility] Pager [phone] documented in this en counter Plan of Treatment +--------+---------+ + + + | Date | Type | Specialty | Care Team | Description | +--------+---------+ + + + | 12/08/ | Office | Neurology | Keon Gerber, | | | 2018 | Visit | | [address] | | | | | | [place], [place] | | | | | | [address] | | | | | | [phone] | | | | | | | | +--------+---------+ + + + documented as of this encounter Results ALA, URINE [...] REG UNIV | | | CONCENTRATI | Sterlingeta Akash, [facility] | | PTH - INTFC | | | [place] | [address] | | | | | | [phone].[email or web address]. | | | | | | com, Kaleb Silver MD, | | | | [...] [facility] | [address] | [place], [place] | | | UNIV PTH - INTFC | | [address] | | + + + + + [...] | | | N, URINE | | SLOT EDITOR | REG UNIV | | | ([facility]) | | | PTH - INTFC | | + + + + + + | HEPTACARBOX | <1 | 0 - 2 umol/mol | [facility] | | | YLATE | | SLOT EDITOR | REG UNIV | | | PORPHYRIN(A | | | PTH - INTFC | | | RUP) | | | | | + + + + + + | COPROPORPHY | 3 | 0 - 6 umol/mol | [facility] | | | RIN I | | SLOT EDITOR | REG UNIV | | | | | | PTH - INTFC | | + + + + + + | COPROPORPHY | 10 | 0 - 14 umol/mol | [facility] | | | RIN III | | SLOT EDITOR | REG UNIV | | | | [...] | | | | | determined by [employer] | | | | | | Laboratories. See | | | | | | Compliance Statement B: | | | | | | [employer]CSPerformed | | | | | | by [employer],[address] | | | | | | [facility],[place] | | | | | | [address] | | | | | | [phone].[employer]. | | | | | | com, Kaleb Silver MD, | | | | [...] [facility] | [address] | [place], [place] | | | UNIV PTH - INTFC | | [address] | | + + + + + [...] [facility] | [address] | [place] [address] | | | SERVICES, CORE | PARK [...] | | | LABORATORY | | | DUTCH | | | SERVICES, | | | [...] the MDRD equation recommended by the | [facility] | | National Kidney Disease Education Program. [...] | + + + + + | [facility] | [address] | [place] [address] | | | SERVICES, CORE | PARK [...] and | 50 - 200 ng/mL | [facility] | | | | Female >18 years: [...] | + + + + + | [facility] | [address] | [place] [address] | | | JONATHAN CHUN | NATASHA [...]
--- OUTSIDE RECORDS SUMMARY | ~2018-11-18 | XMS | Encounter Summary ---
Demographics + + + | Address | [address] [place] [address] St. | | | [place] [address] | + + + | Home Phone [...] Team Providers + +------+ + | Care Practice Performance Manager Name | Role | Phone | [...] | | 2019 | Visit | | [address] | | | | | | [place], [place] | | | | | | [address] | | | | | | [phone] | | | | | | | | +--------+---------+ + + + documented as of this encounter Visit Diagnoses Not on filedocumented in this encounter"
--- OUTSIDE RECORDS SUMMARY | ~2018-11-18 | XMS | Encounter Summary ---
Demographics + + + | Address | [address] [place] [address] St. | | | [place] [address] | + + + | Home Phone [...] Team Providers + +------+ + | Care Ethnoarchaeology Professor Name | Role | Phone | + +------+ + | Melvina TalleyP | PCP | | + +------+ + Encounter Details +--------+ + + + + | Date | Type | Department | Care Team | Description | +--------+ + + + + | 06/27/ | MyChart | [facility] | Luis E Manriquez I, | I need your | | 2016 | Encounter | Center at [facility] [address] | MD | help...again | | | | [address] | | | | | | Mailcode: [facility] | | [facility] | | | | | | and Healing, | | | | | | [address], | | | | | | [place], [place] | | | | | | [address] | | | | | | [phone] | | | +--------+ + + + [...] | | 2019 | Visit | | [address] | | | | | | [place], [place] | | | | | | [address] | | | | | | [phone] | | | | | | | | +--------+---------+ + + + documented as of this encounter Visit Diagnoses Not on filedocumented in this encounter"
--- OUTSIDE RECORDS SUMMARY | ~2018-11-18 | XMS | Encounter Summary ---
Demographics + + + | Address | [address] [place] [address] St. | | | [place] [address] | + + + | Home Phone | | + + + | Preferred Language | Unknown | + + + | Marital Status | | + + + | Baptism Affiliation | NON | + + + | Race | White | + + + | Ethnic Group | Not or | + + + Author + + + | Author | [facility] | + + + | Organization | [facility] | + + + | Address [...] Team Providers + +------+ + | Care Plant Physiologist Name | Role | Phone | + +------+ + | Melvina Talley | PCP | | + +------+ + Encounter Details +--------+ + + + + | Date | Type | Department | Care Team | Description | +--------+ + + + + | 03/14/ | MyChart | Neurology at | [place] Gerber, | RE:Labs | | 2019 | Encounter | [facility] & | MD [address] | | | | | [address] | [place], [place] | | | | | [address] Mailcode: | [address] | | | | | [facility] | [phone] | | | | | Health and Healing, | | | | | | [facility] | | | | | | [place], [place] | | | | | | [address] | | | | | | [phone] | | | +--------+ + + + [...] | | 2018 | Visit | | [address] | | | | | | [place], [place] | | | | | | [address] | | | | | | [phone] | | | | | | | | +--------+---------+ + + + documented as of this encounter Visit Diagnoses Not on filedocumented in this encounter"
--- OUTSIDE RECORDS SUMMARY | ~2018-11-18 | XMS | Encounter Summary ---
Demographics + + + | Address | [address] [place] [address] St. | | | [place] [address] | + + + | Home Phone [...] Team Providers + +------+ + | Care Regional Business Development Manager Name | Role | Phone | [...] PA-C | | | | | at [facility] [address] | [address] | | | | | [address] [place], | [place], [place] | | | | | [place] [address] | [address] | | | | | [phone] | [phone] | | | | | | | [...] | | 2019 | Visit | | [address] | | | | | | [place], [place] | | | | | | [address] | | | | | | [phone] | | | | | | | | +--------+---------+ + + + documented as of this encounter Visit Diagnoses Not on filedocumented in this encounter"
--- OUTSIDE RECORDS SUMMARY | ~2018-11-18 | XMS | Encounter Summary ---
Demographics + + + | Address | [address] [place] [address] St. | | | [place] [address] | + + + | Home Phone [...] Team Providers + +------+ + | Care Traveling Accountant Name | Role | Phone | + +------+ + | Unknown | PCP | Unavailable | + +------+ + Encounter Details +--------+ + + + + | Date | Type | Department | Care Team | Description | +--------+ + + + + | 12/06/ | Abstract | Digestive Health | Clinic, | | | 2018 | | [place] at [facility] [address] | Gastroenterology | | | | | [address] | | | | | | Mailcode: [place] | | | | | | for Health and | | | | | | Healing, [address] | | | | | | [place], [place] | | | | | | [address] | | | | | | [phone] | | | +--------+ + + + [...] | | 2019 | Visit | | [address] | | | | | | [place], [place] | | | | | | [address] | | | | | | [phone] | | | | | | | | +--------+---------+ + + + documented as of this encounter Visit Diagnoses Not on filedocumented in this encounter"
--- OUTSIDE RECORDS SUMMARY | ~2018-11-18 | XMS | Encounter Summary ---
Demographics + + + | Address | [address] [place] [address] St. | | | [place] [address] | + + + | Home Phone [...] Team Providers + +------+ + | Care Wood Shingle Roofer Name | Role | Phone | + +------+ + | Unknown | PCP | Unavailable | + +------+ + Encounter Details +--------+ + + + + | Date | Type | Department | Care Team | Description | +--------+ + + + + | 12/06/ | Abstract | Digestive Health | Clinic, | | | 2018 | | [place] at [facility] [address] | Gastroenterology | | | | | [address] | | | | | | Mailcode: [place] | | | | | | for Health and | | | | | | Healing, [address] | | | | | | [place], [place] | | | | | | [address] | | | | | | [phone] | | | +--------+ + + + [...] | | 2019 | Visit | | [address] | | | | | | [place], [place] | | | | | | [address] | | | | | | [phone] | | | | | | | | +--------+---------+ + + + documented as of this encounter Visit Diagnoses Not on filedocumented in this encounter"
--- OUTSIDE RECORDS SUMMARY | ~2018-11-18 | XMS | Encounter Summary ---
Demographics + + + | Address | [address] [place] [address] St. | | | [place] [address] | + + + | Home Phone | | + + + | Preferred Language | Unknown | + + + | Marital Status | | + + + | Quaker Affiliation | NON | + + + | Race | White | + + + | Ethnic Group | Not or | + + + Author + + + | Author | [facility] | + + + | Organization | [facility] | + + + | [...] Team Providers + +------+ + | Care Casting Operator Helper Name | Role | Phone | + +------+ + | Melvina Talley | PCP | | + +------+ + Encounter Details +--------+------+ + + + | Date | Type | Department | Care Team | Description | +--------+------+ + + + | 03/14/ | Lab | Laboratory at [facility] | | RLS (restless legs | | 2019 | | [address] | | syndrome); Abdominal | | | | [place], [place] | | pain, unspecified | | | | [address] | | abdominal location; | | | | [phone] | | Myoclonus; | | | | [...] [address] | | | | | | [place], [place] | | | | | | [address] | | | | | | [phone] | | | | | | | [...] | [facility] | | | URINE | [facility],[address] | | REG UNIV | | | CONCENTRATI | Marlon [address]ust[address], [facility] | | PTH - INTFC | | | [place] | [address] | | | | | | [phone][email or web address]. | | | | | | Kaleb [...] [facility] | [address] | [place], [place] | | | UNIV PTH - INTFC | | [address] | | + + + + + [...] | | | N, URINE | | MANAGER MOUNTAIN | REG UNIV | | | ([facility]) | | | PTH - INTFC | | + + + + + + | HEPTACARBOX | <1 | 0 - 2 umol/mol | [facility] | | | YLATE | | MANAGER MOUNTAIN | REG UNIV | | | PORPHYRIN(A | | | PTH - INTFC | | | RUP) | | | | | + + + + + + | COPROPORPHY | 3 | 0 - 6 umol/mol | [facility] | | | RIN I | | MANAGER MOUNTAIN | REG UNIV | | | | | | PTH - INTFC | | + + + + + + | COPROPORPHY | 10 | 0 - 14 umol/mol | [facility] | | | RIN III | | MANAGER MOUNTAIN | REG UNIV | | | | [...] | | | | | determined by [facility] | | | | | | Laboratories. See | | | | | | Compliance Statement B: | | | | | | [employer]erformed | | | | | | by [employer],[address] | | | | | | [facility],[place] | | | | | | [address] | | | | | | [phone].[employer]. | | | | | | [employer], Kaleb Silver MD, | | | | [...] [facility] | [address] | [place], [place] | | | UNIV PTH - INTFC | | [address] | | + + + + + [...] | + + + + + | [facility] | [address] | [place] [address] | | | SERVICES, CORE | NATASHA [...] | + + + + + | [facility] | [address] [facility] | [place] [address] | | | SERVICES, CORE | NATASHA [...] | | | LABORATORY | | | [place] | | | SERVICES, | | | [...] | + + + + + | [facility] [employer] | [address] | [place] [address] | | | SERVICES, CORE | NATASHA [...] | + + + + + | [facility] | [address] | [place] [address] | | | SERVICES, CORE | NATASHA [...]
--- OUTSIDE RECORDS SUMMARY | ~2018-11-18 | XMS | Encounter Summary ---
Demographics + + + | Address | [address] [place] [address] St. | | | [place] [address] | + + + | Home Phone | | + + + | Preferred Language | Unknown | + + + | Marital Status | | + + + | Buddhism Affiliation | NON | + + + | Race | White | + + + | Ethnic Group | Not or | + + + Author + + + | Author | [facility] | + + + | Organization | [facility] | + + + | [...] Team Providers + +------+ + | Care Print Inspector Name | Role | Phone | + +------+ + | Melvina TalleyP | PCP | | + +------+ + Encounter Details +--------+ + + + + | Date | Type | Department | Care Team | Description | +--------+ + + + + | 03/24/ | MyChart | Neurology at | Trice Wheatley, | RE: MRI Review | | 2016 | Encounter | [facility] & | [place] [address] | | | | | [address] | | | | | [address] Mailcode: | [place], [place] | | | | | [facility] | [address] | | | | | Health and Healing, | | | | | | Building | | | | | | [place], [place] | | | | | | [address] | | | | | | [phone] | | | +--------+ + + + [...] [address] | | | | | | [place], [place] | | | | | | [address] | | | | | | [phone] | | | | | | | | +--------+---------+ + + + documented as of this encounter Visit Diagnoses Not on filedocumented in this encounter"
--- OUTSIDE RECORDS SUMMARY | ~2018-11-18 | XMS | Encounter Summary ---
Demographics + + + | Address | [address] [place] [address] St. | | | [place] MARCUM [address] | + + + | Home Phone [...] Team Providers + +------+ + | Care Emergency Care Attendant Name | Role | Phone | + +------+ + | Melvina Tlaley | PCP | | + +------+ + [...] | | | | status | | [place], [place] | | | | | epilepticus | | [address] | | | | | Procedures | | Phone: | | | | | NE NEW | | [phone] | | | | | PATIENT | | Fax: | | | | | LEVEL V NE | | [phone] | | | | | EST PATIENT [...] (Primary | | 2019 | Visit | [facility] | MD [address] | Dx); RLS (restless | | | | Healing [address] | [facility] [place] | legs syndrome); | | | | [address] Mailcode: | [address] | Abdominal pain, | | | | [facility] | [phone] | unspecified | | | | Health and Healing, | | abdominal location; | | | | Building | | Hypovitaminosis D | | | | Floor [place], [place] | | | | | | [address] | | | | | | [phone] | | | +--------+---------+ + + + [...] RN - 03/14/2018 2:35 PM PSTLVM [facility] M RI from 05/06/2013 to [facility] impaxElectronically signed by Chelle Mckeon RN at 9 10:46 AM Keon Navarro MD - 03/14/2018 2:35 PM PST [facility] NEUROLOGY CLINIC Consultation Visit Today's Date: 03/14/2018 [...] the patient. HPI: She was seen at [facility] on 12/09/2017 by neurology resident Antonio Bertrand [...] multiple neurologists; saw [facility] Nguyen [facility] in 2013 most recently who suspected myoclonus. Per patient, she had an EEG which captured t hem and was told that the EEG was normal (work-up done in [place], [place]). She was not started on medications, but referred to [facility] neurology for further evaluation/treatment options. She saw Neurology at [facility]; Dr Hauser in 02/2015 who suspected migraines [...] anxiety, restless leg syndrome, CKD (due to intermediate manager NSAID use), HTN, esophageal dysmotil ity, uterine [...] 0.60 - 1.10 mg/dL 0.67 EGFR - KYRGYZ >60 mL/min >60 EGFR NON -KYRGYZ >60 mL/min >60 SODIUM, PLASMA (LAB) 136 [...] woman who is referred for neurological consultat [facility] for evaluation of a constellation of [...] erapy. She had prior MRI's done at [facility], 04/2013; will request imaging. Her examination [...] consistent with her episodic worsening, could con articulation officer repeating this testing in the future. She [...] PORPHOBILINOGEN, URINE ALA, URINE COMP METABOLIC SET [[id number]] CBC, WITH DIFFERENTIAL [[id number]] VITAMIN D, 25-HYDROXY, SERUM [[id number]] levETIRAcetam 750 mg oral tablet I spent 75 minutes with the patient during the visit. More than half of the visit was spent counseling the patient. Keon Gerber MD Neurology Department [facility] Pager [phone] documented in this en counter Plan of Treatment +--------+---------+ + + + | Date | Type | Specialty | Care Team | Description | +--------+---------+ + + + | 12/08/ | Office | Neurology | Keon Gerber, | | | 2018 | Visit | | [address] | | | | | | [place], [place] | | | | | | [address] | | | | | | [phone] | | | | | | | [...] | | | CONCENTRATI | Sterlingeta Akash, [facility] | | PTH - INTFC | | | [place] | [address] | | | | | | [phone].[email or web address]. | | | | | | com, [...] [facility] | [address] | [place], [place] | | | UNIV PTH - INTFC | | [address] | | + + + + + [...] | | | N, URINE | | CURATOR NATURAL HISTORY MUSEUM | REG UNIV | | | ([facility]) | | | PTH - INTFC | | + + + + + + | HEPTACARBOX | <1 | 0 - 2 umol/mol | [facility] | | | YLATE | | CURATOR NATURAL HISTORY MUSEUM | REG UNIV | | | PORPHYRIN(A | | | PTH - INTFC | | | RUP) | | | | | + + + + + + | COPROPORPHY | 3 | 0 - 6 umol/mol | [facility] | | | RIN I | | CURATOR NATURAL HISTORY MUSEUM | REG UNIV | | | | | | PTH - INTFC | | + + + + + + | COPROPORPHY | 10 | 0 - 14 umol/mol | [facility] | | | RIN III | | CURATOR NATURAL HISTORY MUSEUM | REG UNIV | | | | [...] | | | | | determined by [employer] | | | | | | Laboratories. See | | | | | | Compliance Statement B: | | | | | | [employer].RoyaltyShare/CSPerformed | | | | | | by [employer],[address] | | | | | | [facility] | | | | | | [address] | | | | | | [phone].Vadio. | | | | | | com, [...] [facility] | [address] | [place], [place] | | | UNIV PTH - INTFC | | [address] | | + + + + + [...] [facility] | [address] | [place] [address] | | | SERVICES, CORE | PARK [...] | | | LABORATORY | | | KYRGYZ | | | SERVICES, | | | [...] the MDRD equation recommended by the | [facility] | | National Kidney Disease Education Program. [...] | + + + + + | [facility] | [address] | [place] [address] | | | SERVICES, CORE | PARK [...] and | 50 - 200 ng/mL | [facility] | | | | Female >18 years: [...] + + + + + | [facility] | [address] | [place] [address] | | | JONATHAN CHUN | NATASHA [...]
--- OUTSIDE RECORDS SUMMARY | ~2018-11-18 | XMS | Encounter Summary ---
Demographics + + + | Address | [address] [place] [address] St. | | | [place] MARCUM [address] | + + + | Home Phone | | + + + | Preferred Language | Unknown | + + + | Marital Status | | + + + | Synagogue Affiliation | NON | + + + | Race | White | + + + | Ethnic Group | Not or | + + + Author + + + | Author | [facility] | + + + | Organization | [facility] | + + + | Address [...] Team Providers + +------+ + | Care Property Management Bookkeeper Name | Role | Phone | + [...] Obesity (BMI | DAVEY Latham | [address] [facility] | | | | | 30-39.9) | [address] | [address] | | | | | Essential | [facility] | Mailcode: | | | | | hypertension | Rd | [address] | | | | | Procedures | [place], [place] | [place], [place] | | | | | SPLIT | [address] | [address] | | | | | NIGHT PSG | Phone: | Phone: | | | | | [place] | [phone] | [phone] | | | | | POLYSOMNOGRA | Fax: | Fax: | | | | | PHY W/CPAP | [phone] | [phone] | +--------+--------+ + + + + Encounter Details +--------+ + + + + | Date | Type | Department | Care Team | Description | +--------+ + + + + | 03/27/ | Conservation Coordinator | Sleep Disorder | Rosalina, | Snoring (Primary | | 2017 | | [facility] | Francesco Latham PA-C | Dx); Obesity (BMI | | | | [facility] | [address] | 30-39.9); Essential | | | | [address] | [address] [place], | hypertension | | | | [facility] Mailcode: | [place] [address] | | | | | [address] [facility] | [phone] | | | | | [facility] | | | | | | 62U91 | | | | | | [address] | | | | | | [phone] | | | +--------+ + + + [...] [address] | | | | | | [place], [place] | | | | | | [address] | | | | | | [phone] | | | | | | | [...] | | + +---------+ + + | [facility] DEPARTMENT OF | | | | | SLEEP STUDIES | | | | + +---------+ + + | [facility] DEPARTMENT OF | | [place], [place] | | | SLEEP STUDIES | [...]
--- OUTSIDE RECORDS SUMMARY | ~2018-11-18 | XMS | Encounter Summary ---
Demographics + + + | Address | [address] [place] [address] St. | | | [place] MARCUM [address] | + + + | Home Phone | | + + + | Preferred Language | Unknown | + + + | Marital Status | | + + + | Presybeterian Affiliation | NON | + + + [...] Team Providers + +------+ + | Care Power Plant Engineer Name | Role | Phone | + +------+ + | Unknown | PCP | Unavailable | + +------+ + Encounter Details +--------+ + + + + | Date | Type | Department | Care Team | Description | +--------+ + + + + | 12/03/ | Abstract | Digestive Health | Clinic, | | | 2018 | | [facility] [address] | Gastroenterology | | | | | [address] | | | | | | Mailcode: [facility] | | | | | | for Health and | | | | | | Healing, [address] | | | | | | [place], [place] | | | | | | [address] | | | | | | [phone] | | | +--------+ + + + [...] | | 2019 | Visit | | [address] | | | | | | [place], [place] | | | | | | [address] | | | | | | [phone] | | | | | | | | +--------+---------+ + + + documented as of this encounter Visit Diagnoses Not on filedocumented in this encounter"
--- OUTSIDE RECORDS SUMMARY | ~2018-11-18 | XMS | Encounter Summary ---
Demographics + + + | Address | [address] [place] [address] St. | | | [place]ARCUM [address] | + + + | Home Phone | | + + + | Preferred Language | Unknown | + + + | Marital Status | | + + + | Hinduism Affiliation | NON | + + + | Race | White | + + + | Ethnic Group | Not or | + + + Author + + + | Author | [facility] | + + + | Organization | [facility] | + + + | Address [...] Team Providers + +------+ + | Care Research Laboratory Technician Name | Role | Phone | + +------+ + PCP | Unavailable | + +------+ + Encounter Details +--------+ + + + + | Date | Type | Department | Care Team | Description | +--------+ + + + + | 05/31/ | Office | [facility] | Note, [...] as of this encounter Progress Notes Interface, Senior Account Director In - 02/11/2006 2:31 AM PSTCLINIC DATE: 05/31/1998 GENERAL NEUROLOGY CLINIC SUBJECTIVE: Ms. Kendall returns for followup of her migraines. I last saw her on February 22. She had an MRI completed in [place] which was suggestive of hippocampal sclerosis, but followup MRI with temporal lobe cuts here at [facility] was negative. She also had a negative EEG. On February 22, I started her on some amitriptyline for migraine prophylaxis. She reports that she had good results for a month or so with the amitriptyline. She has a little bit of a.m. sedation but no other significant side effects from the amitriptyline. Over the last month, however, she has had a recurrence of her migraines. She has a headache almost every night and about three nights a week she has a rip-roaring migraine with some ataxia and some positive visual phenomena as well. She is continuing to take the amitriptyline and is on no other medications. There are no other clear confounding factors. CURRENT MEDICATIONS: Amitriptyline 20 mg p.o. q.h.s. OBJECTIVE: General: Aniket appears well and is in no acute distress. Vital signs: Her weight is 177 pounds. Blood pressure is 112/74, heart rate 78 and regular. The patient was not examined in any detail. She was alert and lucid. She was not ataxic or otherwise grossly impaired. ASSESSMENT: Migraine headaches with partial response to amitriptyline prophylaxis. PLAN: 1. We will push the amitriptyline dose up to 50 mg p.o. q.h.s. 2. I gave her some Imitrex 50 mg tabs to try for her more severe migraines and I gave her a prescription to get nine tabs per month. 3. Followup here will be on an as-needed basis. Isaac Long M.D. JQ/wdf cc: GARRY WAY MD [address] [facility] [place] [id number] signed by Interface, Senior Account Director In at 02/11/2006 2:31 AM PSTdocumented in this encounter Plan of Treatment +--------+---------+ + + + | Date | Type | Specialty | Care Team | Description | +--------+---------+ + + + | 12/08/ | Office | Neurology | Keon Gerber, | | | 2018 | Visit | | [address] | | | | | | [place], [place] | | | | | | [address] | | | | | | [phone] | | | | | | | | +--------+---------+ + + + documented as of this encounter Visit Diagnoses Not on filedocumented in this encounter"
--- OUTSIDE RECORDS SUMMARY | ~2018-11-18 | XMS | Encounter Summary ---
Demographics + + + | Address | [address] [place] [address] St. | | | [place] [address] | + + + | Home Phone [...] Providers + +------+ + | Care Supervisor Phosphatic Fertilizer Name | Role | Phone | + [...] + + | 03/04/ | Telephone | [facility] | Haroon Biggs, | Discussion (Pt had | | 2015 | | Center at [facility] [address] | ,MPH | surgery on Saturday, | | | | [address] | | woke up last night | | | | Mailcode: [facility] | | and sneezed and had | | | | [facility] | | some bleeding, but | | | | and Healing, | | no other bleeding | | | | [address] | | today. Having a lot | | | | Floor [place], [place] | | of lightheadedness | | | | [address] | | and nausea. Took BP | | | | [phone] | | and it was 94/60, | [...] | | 2018 | Visit | | [address] | | | | | | [place], [place] | | | | | | [address] | | | | | | [phone] | | | | | | | | +--------+---------+ + + + documented as of this encounter Visit Diagnoses Not on filedocumented in this encounter"
--- OUTSIDE RECORDS SUMMARY | ~2018-11-18 | XMS | Encounter Summary ---
Demographics + + + | Address | [address] [place] [address] St. | | | [place] [address] | + + + | Home Phone [...] Team Providers + +------+ + | Care School Administrator Name | Role | Phone | [...] | | | | pharyngeus | PA-C [address] | [facility] [address] | | | | | Procedures | [address] | [address] | | | | | CONSULT TO | [place], | [place], [place] | | | | | ENT / | [place] | [address] | | | | | OTOLARYNGOLO | [address] | Phone: | | | | | [place] | Phone: | [phone] | | | | | | [phone] | Fax: | | | | | | Fax: | [phone] | | | | | | [phone] | | +--------+--------+ + + + + [...] | | | | | | | [place], [place] | | | | | | | [address] | | | | | | | Phone: | | | | | | | [phone] | | | | | | | Fax: | | | | | | | [phone] | +--------+--------+ + + + + Encounter Details +--------+---------+ + + + | Date | Type | Department | Care Team | Description | +--------+---------+ + + + | 10/18/ | Office | [facility] | Carmelita Craig, | Globus pharyngeus | | 2015 | Visit | Center at [facility] [address] | PA-C [address] | (Primary Dx); | | | | [address] | Ave [place], [place] | Dysphagia, | | | | Mailcode: CH5E | [address] | unspecified type; | | | | [facility] | [phone] | Chronic ethmoidal | | | | and Healing, | | sinusitis; Chronic | | | | [address] | | maxillary sinusitis | | | | Floor [place], [place] | | | | | | [address] | | | | | | [phone] | | | +--------+---------+ + + + [...] Craig PA-C - 10/19/2015 1:40 PM PDT [facility] HPI: Aniket Kendall is a 35 y.o. female who presents to the [facility] for fol low up of [...] sinus irrigati ons. Irrigate BID. Sent to [facility] cyclobenzaprine 10 mg oral tablet Take [...] | | 2018 | Visit | | [address] | | | | | | [place], [place] | | | | | | [address] | | | | | | [phone] | | | | | | | | +--------+---------+ + + + documented as of this encounter Procedures + +--------+ + + + | Procedure Name | Priori | Date/Time | Associated Diagnosis | Comments | | | ty | | | | + +--------+ + + + | TN NASAL | Routin | 10/26/2015 | Dysphagia, [...]
--- OUTSIDE RECORDS SUMMARY | ~2018-11-18 | XMS | Encounter Summary ---
Demographics + + + | Address | [address] [place] [address] St. | | | [place] [address] | + + + | Home Phone [...] + + + | Author | [facility] | + + + | Organization | [facility] | + + + | [...] Team Providers + +------+ + | Care Steward/Stewardess Chief Cargo Vessel Name | Role | Phone | + [...] | | | | CONSULT TO | [place], [place] | [address] | | | | | ENT SPEECH | [address] | Physician's | | | | | THERAPY | Phone: | Pavilion | | | | | | [phone] | [place], [place] | | | | | | Fax: | [address] | | | | | | [phone] | Phone: | | | | | | | [phone] | | | | | | | Fax: | | | | | | | [phone] | +--------+--------+ + + + + Encounter Details +--------+---------+ + + + | Date | Type | Department | Care Team | Description | +--------+---------+ + + + | 03/26/ | Office | Otolaryngology [facility] | Latha Vasquez | Dysphagia, | | 2017 | Visit | [facility] | | unspecified type | | | | Swallowing at [facility] | | (Primary Dx); | | | | [address] | | Laryngeal | | | | Mailcode: CH15E | | hyperfunction; | | | | [facility] | | Dysphonia; Globus | | | | and Healing, | | sensation | | | | Building | | | | | | Floor [place], [place] | | | | | | [address] | | | | | | [phone] | | | +--------+---------+ + + + [...] Vasquez - 03/26/2016 1:00 PM PST Clinic: [facility] for [facility] Swallowing Referring Physician: TAMEKA Yin [facility] [address] [facility] [address] [place] [address] PCP: TAMEKA Mistry Medical Diagnosis: 1. Dysphagia, [...] REFERRAL: Aniket Kendall was referred to the [facility] for Voice and Swallowing by Dr. Carmelita [...] with Cathleen Castro PA-C. Please refer to tx s report for details regarding the medical [...] with it if it is covered by [employer] kianna. Latha Vasquez MA, CF-UNDERCOLLAR BASTER Speech-Language Pathology Fellow [facility] Dept. of Otolaryngology, [place] [address] [place] [address] Pager: [phone] signed by Latha Vasquez at 04/01/2016 5:12 PM PSTdocumented in this encounter Plan of Treatment +--------+---------+ + + + | Date | Type | Specialty | Care Team | Description | +--------+---------+ + + + | 12/08/ | Office | Neurology | Keon Gerber, | | | 2018 | Visit | | [address] | | | | | | [place], [place] | | | | | | [address] | | | | | | [phone] | | | | | | | [...]
--- OUTSIDE RECORDS SUMMARY | ~2018-11-18 | XMS | Encounter Summary ---
Demographics + + + | Address | [address] [place] [address] St. | | | [place] [address] | + + + | Home Phone | | + + + | Preferred Language | Unknown | + + + | Marital Status | | + + + | Jain Affiliation | NON | + + + [...] Providers + +------+ + | Care Medical Support Assistant Name | Role | Phone | [...] PA-C | | | | | at [facility] [address] | [address] | | | | | [address], | [place], [place] | | | | | [place] [address] | [address] | | | | | [phone] | [phone] | | | | | | | [...] [address] | | | | | | [place], [place] | | | | | | [address] | | | | | | [phone] | | | | | | | | +--------+---------+ + + + documented as of this encounter Visit Diagnoses Not on filedocumented in this encounter"
--- OUTSIDE RECORDS SUMMARY | ~2018-11-18 | XMS | Encounter Summary ---
Demographics + + + | Address | [address] [place] [address] St. | | | [place] [address] | + + + | Home Phone [...] Team Providers + +------+ + | Care Rpg Programmer Name | Role | Phone | + +------+ + | Melvina Talley | PCP | | + +------+ + Encounter Details +--------+ + + + + | Date | Type | Department | Care Team | Description | +--------+ + + + + | 08/05/ | Document-Sc | UNKNOWN DEPARTMENT | Unknown . | | | 2015 | anned | [address] [facility] [employer] [facility] [employer] | | | | | | [address] | | | | | | [place], [place] | | | | | | [address] | | | +--------+ + + + [...] | | 2019 | Visit | | [address] | | | | | | [place], [place] | | | | | | [address] | | | | | | [phone] | | | | | | | [...]
--- OUTSIDE RECORDS SUMMARY | ~2018-11-18 | XMS | Encounter Summary ---
Demographics + + + | Address | [address] [place] [address] St. | | | [place] [address] | + + + | Home Phone | | + + + | Preferred Language | Unknown | + + + | Marital Status | | + + + | Alevism Affiliation | NON | + + + | Race | White | + + + | Ethnic Group | Not or | + + + Author + + + | Author | [facility] | + + + | Organization | [facility] | + + [...] Team Providers + +------+ + | Care Getter Filler Name | Role | Phone | + +------+ + | Melvina TalleyP | PCP | | + +------+ + Encounter Details +--------+ + + + + | Date | Type | Department | Care Team | Description | +--------+ + + + + | 08/23/ | MyChart | [facility] | Carmelita Craig, | RE: Been using | | 2016 | Encounter | Center at [facility] [address] | PA-C [address] | Zoltan, not better | | | | [address] | [address] [place], [place] | | | | | Mailcode: [id number] | [address] | | | | | [facility] | [phone] | | | | | and Imelda, | | | | | | [address] | | | | | | Floor [place], [place] | | | | | | [address] | | | | | | [phone] | | | +--------+ + + + [...] [address] | | | | | | [place], [place] | | | | | | [address] | | | | | | [phone] | | | | | | | | +--------+---------+ + + + documented as of this encounter Visit Diagnoses Not on filedocumented in this encounter"
--- OUTSIDE RECORDS SUMMARY | ~2018-11-18 | XMS | Encounter Summary ---
Demographics + + + | Address | [address] [place] [address] St. | | | [place] [address] | + + + | Home Phone [...] Team Providers + +------+ + | Care Rig Mechanic Name | Role | Phone | + [...] | Laryngology Services | MD Maria T [address] [facility] | | | | | at [facility] [address] | | | | | [place], | [place], [place] | | | | | [place] [address] | [address] | | | | | [phone] | [phone] | | | | | | | [...] | | 2019 | Visit | | [address] | | | | | | [place], [place] | | | | | | [address] | | | | | | [phone] | | | | | | | | +--------+---------+ + + + documented as of this encounter Visit Diagnoses Not on filedocumented in this encounter"
--- OUTSIDE RECORDS SUMMARY | ~2018-11-18 | XMS | Encounter Summary ---
Demographics + + + | Address | [address] [place] [address] St. | | | [place] [address] | + + + | Home Phone | | + + + | Preferred Language | Unknown | + + + | Marital Status | | + + + | Confucianist Affiliation | NON | + + + [...] Team Providers + +------+ + | Care Business Improvement Manager Name | Role | Phone | [...] | | | | | type | [address] | Ceci Christopher | | | | | Procedures | Ave | Mailcode: | | | | | CONSULT TO | [facility], [place] | [address] | | | | | ENT SPEECH | [address] | Physician's | | | | | THERAPY | Phone: | Pavilion | | | | | | [phone] | [place], [place] | | | | | | Fax: | [address] | | | | | | [phone] | Phone: | | | | | | | [phone] | | | | | | | Fax: | | | | | | | [phone] | +--------+--------+ + + + + Encounter Details +--------+ + + + + | Date | Type | Department | Care Team | Description | +--------+ + + + + | 03/26/ | Diagnostic | Otolaryngology | Matthias Wright, | | | 2017 | Visit | Speech Therapy | BUILDINGS PAINTER [address] | | | | | Services at [facility] | [address] | | | | | [address] | [place] [address] | | | | | Ceci Christopher Mailcode: | [phone] | | | | | [address] Physician's | | | | | | [place], | | | | | | [place] [address] | | | | | | [phone] | | | +--------+ + + + [...] be different fro m the original. Clinic: [facility] for [facility] & [facility] Referring Physician: Lucy Castro PA-C [address] [place] [address] PCP: TAMEKA Mistry Medical Diagnosis: No diagnosis [...] to the [facility] for foll ow up of [...] and s moking cessation). Matthias Wright, PhD, CCC-BUILDINGS PAINTER [facility] Dept. of Otolaryngology, [address] [place] [address] documented in this en counter Plan of Treatment +--------+---------+ + + + | Date | Type | Specialty | Care Team | Description | +--------+---------+ + + + | 12/08/ | Office | Neurology | Keon Gerber, | | | 2019 | Visit | | [address] | | | | | | [facility] [place] | | | | | | [address] | | | | | | [phone] | | | | | | | | +--------+---------+ + + + documented as of this encounter Visit Diagnoses Not on filedocumented in this encounter"
--- OUTSIDE RECORDS SUMMARY | ~2018-11-18 | XMS | Encounter Summary ---
Demographics + + + | Address | [address] [place] [address] St. | | | [place] [address] | + + + | Home Phone | | + + + | Preferred Language | Unknown | + + + | Marital Status | | + + + | Episcopal Affiliation | NON | + + + [...] Team Providers + +------+ + | Care Change Release Manager Name | Role | Phone | + +------+ + | Melvina TalleyP | PCP | | + +------+ + Encounter Details +--------+ + + + + | Date | Type | Department | Care Team | Description | +--------+ + + + + | 07/31/ | MyChart | [facility] | Tony Rodriguez, | RE: | | 2016 | Encounter | Center at [facility] [address] | [place] [address]--insurance | | | | [address] | [address] | denied | | | | Mailcode: CH5E | [place], [place] | | | | | [facility] | [address] | | | | | and [address]da, | | | | | | Building , | | | | | | Floor [place], [place] | | | | | | [address] | | | | | | [phone] | | | +--------+ + + + [...] [address] | | | | | | [place], [place] | | | | | | [address] | | | | | | [phone] | | | | | | | | +--------+---------+ + + + documented as of this encounter Visit Diagnoses Not on filedocumented in this encounter"
--- OUTSIDE RECORDS SUMMARY | ~2018-11-18 | XMS | Encounter Summary ---
Demographics + + + | Address | [address] [place] [address] St. | | | [place] [address] | + + + | Home Phone | | + + + | Preferred Language | Unknown | + + + | Marital Status | | + + + | Christianity Affiliation | NON | + + + [...] Team Providers + +------+ + | Care Corporate Executive Chef Name | Role | Phone | + [...] | | | 2016 | Event | [facility] | MD Meek MANN Maynor | | | | | and Healing Surgery | [address] | | | | | Center Admitting | [place], [place] | | | | | Desk Located on the | [address] | | | | | 4th floor [address] | [phone] | | | | | [place], | | | | | | [place] [address] | | | +--------+ + + + [...] | 2019 | Visit | | MD [address] | | | | | | [place], [place] | | | | | | [address] | | | | | | [phone] | | | | | | | [...]
--- OUTSIDE RECORDS SUMMARY | ~2018-11-18 | XMS | Encounter Summary ---
Demographics + + + | Address | [address] [place] [address] St. | | | [place] [address] | + + + | Home Phone | | + + + | Preferred Language | Unknown | + + + | Marital Status | | + + + | Mu-Ism Affiliation | NON | + + + [...] Team Providers + +------+ + | Care Small Electric Engine Technician Name | Role | Phone | [...] evaluation | | 2016 | cheduled | [facility] at | | | | | | MPV | | | | | | Stay [address] [facility] | | | | | | [address] | | | | | | Mailcode: [id number] | | | | | | [place] | | | | | | [address] [place], [place] | | | | | | [address] | | | | | | [phone] | | | +--------+ + + + [...] on | | SHERRI Ayoub | Holly oWods, | | | | | SHERRI | [...] perfume, lotions or powder. Remove any nail dominican from at least one fingernail. Do not [...] of your procedure. Surgery Check in Locations [facility], fourth floor Surgery Check in Time: Someone from your surgeon's office or [facility] will provide you with information regarding your [...] t is after office hours, call the [facility] granulator machine operator at [phone] and ask them to page your do ctor. documented in this encounter Plan of Treatment +--------+---------+ + + + | Date | Type | Specialty | Care Team | Description | +--------+---------+ + + + | 12/08/ | Office | Neurology | Keon Gerber, | | | 2018 | Visit | | MD [address] | | | | | | [place], [place] | | | | | | [address] | | | | | | [phone] | | | | | | | | +--------+---------+ + + + documented as of this encounter Visit Diagnoses Not on filedocumented in this encounter"
--- OUTSIDE RECORDS SUMMARY | ~2018-11-18 | XMS | Encounter Summary ---
Demographics + + + | Address | [address] [place] [address] St. | | | [place] [address] | + + + | Home Phone [...] + + | Author | [facility] | + + + | Organization | [facility] | + + + | Address | [...] Team Providers + +------+ + | Care Frog Catcher Name | Role | Phone | + [...] as of this encounter Progress Notes Interface, Web Site Designer In - 02/23/2006 1:01 AM PSTCLINIC DATE: [...] took her to the emergency room in [place]. They found an unremarkable examination and discharged [...] had a brain MRI scan completed in [place], which was read as showing right hippocampal [...] now . She is living alone in [place]. Her father and stepmother live nearby and are supportive. They actually drove her to the appointment today. She smokes a pack of cigarettes per day. She drinks alcohol only very rarely. She denies any other recreational drug use (she did have a negative tox screen on December 18 in the emergency room in [place]). PHYSICAL EXAMINATION: In general, this is a [...] are intact in all four extremities. COORDINATION: Vuhpat-oq-styi and mhpt-ze-aziw are within normal limits. Casual gait, tandem gait, heel walk, and toe walk are also within normal limits. LABORATORY DATA: The serologic findings are described above. A brain MRI scan completed in [place] is available for review. It is of [...] issues are sorted out. Isaac Long M.D. [employer], Neurology RODGER/leticia cc: GARRY WAY MD [address] [place] [id number] signed by Interface, Web Site Designer In at 02/23/2006 1:01 AM PSTdocumented in [...] [place] | | | | | | [address] | | | | | | [phone] | | | | | | | | +--------+---------+ + + + documented as of this encounter Visit Diagnoses Not on filedocumented in this encounter
--- OUTSIDE RECORDS SUMMARY | ~2018-11-18 | XMS | Encounter Summary ---
Demographics + + + | Address | [address] [place] [address] St. | | | [place] [address] | + + + | Home Phone [...] Team Providers + +------+ + | Care Tank Inspector Name | Role | Phone | + +------+ + | Melvina TalleyP | PCP | | + +------+ + Encounter Details +--------+ + + + + | Date | Type | Department | Care Team | Description | +--------+ + + + + | 06/27/ | MyChart | [facility] | Luis E Manriquez I, | I need your | | 2016 | Encounter | Center at [facility] [address] | MD | help...again | | | | [address] | | | | | | Mailcode: [facility] | | | | | | [facility] | | | | | | and Healing, | | | | | | Building [address], | | | | | | [place], [place] | | | | | | [address] | | | | | | [phone] | | | +--------+ + + + [...] | | 2019 | Visit | | [address] | | | | | | [place], [place] | | | | | | [address] | | | | | | [phone] | | | | | | | | +--------+---------+ + + + documented as of this encounter Visit Diagnoses Not on filedocumented in this encounter"
--- OUTSIDE RECORDS SUMMARY | ~2018-11-18 | XMS | Encounter Summary ---
Demographics + + + | Address | [address] [place] [address] St. | | | [place] [address] | + + + | Home Phone [...] Team Providers + +------+ + | Care Rib Knitter Name | Role | Phone | + [...] Mailcode: | | | | | | [address] | | | | | | Health and Healing, | | | | | | Building | | | | | | Floor [place], [place] | | | | | | [address] | | | | | | [phone] | | | +--------+ + + + [...] | | 2019 | Visit | | [address] | | | | | | [place], [place] | | | | | | [address] | | | | | | [phone] | | | | | | | | +--------+---------+ + + + documented as of this encounter Visit Diagnoses Not on filedocumented in this encounter"
--- OUTSIDE RECORDS SUMMARY | ~2018-11-18 | XMS | Encounter Summary ---
Demographics + + + | Address | [address] [place] [address] St. | | | [place] [address] | + + + | Home Phone | | + + + | Preferred Language | Unknown | + + + | Marital Status | | + + + | Moravian Affiliation | NON | + + + [...] Providers + +------+ + | Care Product Marketing Director Name | Role | Phone | [...] | | 2019 | Visit | | [address] | | | | | | [place], [place] | | | | | | [address] | | | | | | [phone] | | | | | | | | +--------+---------+ + + + documented as of this encounter Visit Diagnoses Not on filedocumented in this encounter"
--- OUTSIDE RECORDS SUMMARY | ~2018-11-18 | XMS | Encounter Summary ---
Demographics + + + | Address | [address] [place] [address] St. | | | [place] [address] | + + + | Home Phone [...] Team Providers + +------+ + | Care Dean Of Graduate Studies Name | Role | Phone | + [...] | | | | | Gastro-esoph | [address] | and Healing, | | | | | ageal reflux | Phone: | [address], | | | | | disease | [phone] | 15th Floor | | | | | without | Fax: | [place], [place] | | | | | esophagitis | [phone] | [address] | | | | | Other | | Phone: | | | | | diseases of | | [phone] | | | | | larynx | | Fax: | | | | | Other | | [phone] | | | | | somatoform | [...] Visit | Center for [facility] and | [facility] [address] | | | | | Swallowing at [facility] | [address] | | | | | [address] | [facility] [place] | | | | | Mailcode: [id number] | [address] | | | | | [facility] | | | | | | and Healing, | | | | | | Building | | | | | | Floor [place], [place] | | | | | | [address] | | | | | | [phone] | | | +--------+ + + + [...] of this encounter Progress Notes Marj Martinez, [facility] - 08/16/2016 1:00 PM PDT VOICE THERAPY PROGRESS NOTE CLINIC: [facility] CLINIC DATE: 08/16/16 REFERRING PHYSICIAN: TAMEKA Osborn PRIMARY DIAGNOSIS: 1. Dysphonia 2. Laryngeal hyperfunction 3. Globus sensation TREATMENT DIAGNOSIS: 1. Dysphonia 2. Laryngeal hyperfunction 3. Globus sensation DATE OF ONSET: 02/16/16 START OF CARE: 03/26/16 NUMBER OF SESSIONS: 2 DURATION OF SESSION: 60 min. SUBJECTIVE: Aniket Kendall returns to the [facility] for initiation of [...] is in town for 2 days from [place], [place]. She will return for one additio nal session of voice therapy tomorrow afternoon. Homework was provided. Marj Martinez MS, [facility] Speech-Language Pathologist [facility] Department of Otolaryngology/ Head and Neck Surgery Appointments: [phone] documented in thi s encounter Plan of Treatment +--------+---------+ + + + | Date | Type | Specialty | Care Team | Description | +--------+---------+ + + + | 12/08/ | Office | Neurology | Keon Gerber, | | | 2018 | Visit | | [address] | | | | | | [facility] [place] | | | | | | [address] | | | | | | [phone] | | | | | | | | +--------+---------+ + + + documented as of this encounter Procedures + +--------+ + + + | Procedure Name | Priori | Date/Time | Associated Diagnosis | Comments | | | ty | | | | + +--------+ + + + | NC SPEECH/HEARING | Routin | 08/16/2016 | Dysphonia [...]
--- OUTSIDE RECORDS SUMMARY | ~2018-11-18 | XMS | Encounter Summary ---
Demographics + + + | Address | [address] [place] [address] St. | | | [place] [address] | + + + | Home Phone [...] + + + | Author | [facility] | + + + | Organization | [facility] | + + + | [...] Team Providers + +------+ + | Care Audioprosthologist Name | Role | Phone | + [...] + + | 03/01/ | Surgery | [facility] | Haroon Biggs, | BILATERAL MAXILLARY | | 2015 | | Center for [facility] | ,[facility] | ANTROSTOMY, | | | | and Healing Surgery | | BILATERAL ANTERIOR | | | | Center Admitting | | ETHMOIDECTOMY, | | | | Desk Located on the | | REVISION | | | | 4th floor [address] | | SEPTOPLASTY, | | | | [address] [place], | | [place]ILATER[place] TURBIN[place] | | | | [place] [address] | | OUTFRACTURE | +--------+---------+ + + [...] | | 2019 | Visit | | [address] | | | | | | [place], [place] | | | | | | [address] | | | | | | [phone] | | | | | | | [...] Shaan | | | | | | MMarcelPathologistRajinderi | | | | | | brian [...] + + | [facility] | [address] | [place] [address] | | | PATHOLOGY | [address] [...]
--- OUTSIDE RECORDS SUMMARY | ~2018-11-18 | XMS | Clinical Summary ---
Demographics + + + | Address | [address] [place] [address] St. | | | [place] [address] | + + + | Home Phone | | + + + | Preferred Language | Unknown | + + + | Marital Status | | + + + | Evangelical Affiliation | NON | + + + | Race | White | + + + | Ethnic Group | Not or | + + + Author + + + | Author | [facility] | + + + | Organization | [facility] | + + + | Address | [...] Team Providers + +------+ + | Care Eligibility Supervisor Name | Role | Phone | + +------+ + | Melvina TalleyP | PCP | | + +------+ + Source Comments ANSHU is fully live on both EpicCare Ambulatory and EpicCare InPatient.[facility] Allergies + [...] + | 09/08/ | Telephone | Neurology | Keon Gerber, | Questions About | | 2019 | | | MD | Diagnosis | +--------+ + + + + from [...] | | 2018 | Visit | | [address] | | | | | | [place], [place] | | | | | | [address] | | | | | | [phone] | | | | | | | [...] | | | + +--------+ +--------+-------+---------+--------+ | CARD PUNCHER MEDICAID | CARD PUNCHER | xxxxxxxx | 01/29/ | | | Medica | | | [place] | | 2016-P | | | id | | | [place] | | resent | | | | + +--------+ +--------+-------+---------+--------+ | CARD PUNCHER MEDICAID | CARD PUNCHER | xxxxxxxx | 02/18/19 | | | [...] | Self | [birth year] | | [address] | | | al/Fam | | 1981 | [phone] | [place] [address] | | | paramjit | | | [...]
--- OUTSIDE RECORDS SUMMARY | ~2018-11-18 | XMS | Encounter Summary ---
Demographics + + + | Address | [address] [place] [address] St. | | | [place] [address] | + + + | Home Phone | | + + + | Preferred Language | Unknown | + + + | Marital Status | | + + + | Shinto Affiliation | NON | + + + [...] Team Providers + +------+ + | Care Sterile Products Processor Name | Role | Phone | + [...] as of this encounter Progress Notes Interface, Olericulture Teacher In - 02/18/2006 5:07 AM PSTCLINIC DATE: 02/22/1998 NEUROLOGY CLINIC SUBJECTIVE: Mrs. Kendall returns for follow-up of migraines versus seizure disorder. The clinical history obtained on 01/18/98 was more compatible with migraines, possibly basilar migraines, than with a seizure disorder. The MRI scan completed in [facility], however, was a bit suggestive of hippocampal [...] doing on the amitriptyline. Isaac Long M.D. Major Account Manager, Neurology JFQ/don cc: GARRY WAY M.D. [address] [facility] [place] [id number] signed by Interface, Olericulture Teacher In at 02/18/2006 5:07 AM PSTdocumented in this encounter Plan of Treatment +--------+---------+ + + + | Date | Type | Specialty | Care Team | Description | +--------+---------+ + + + | 12/08/ | Office | Neurology | Keon Gerber, | | | 2019 | Visit | | [address] | | | | | | [place], [place] | | | | | | [address] | | | | | | [phone] | | | | | | | | +--------+---------+ + + + documented as of this encounter Visit Diagnoses Not on filedocumented in this encounter"
--- OUTSIDE RECORDS SUMMARY | ~2018-11-18 | XMS | Encounter Summary ---
Demographics + + + | Address | [address] [place] [address] St. | | | [place] [address] | + + + | Home Phone [...] Providers + +------+ + | Care Marketing Production Manager Name | Role | Phone | [...] | | | | pharyngeus | PA-C [address] | [facility] [address] | | | | | Procedures | [address] | [address] | | | | | CONSULT TO | [place], | [place], [place] | | | | | ENT / | [place] | [address] | | | | | OT[place]OLO | [address] | Phone: | | | | | [place] | Phone: | [phone] | | | | | | [phone] | Fax: | | | | | | Fax: | [phone] | | | | | | [phone] | | +--------+--------+ + + + + [...] | | | | | | | [place], [place] | | | | | | | [address] | | | | | | | Phone: | | | | | | | [phone] | | | | | | | Fax: | | | | | | | [phone] | +--------+--------+ + + + + Encounter Details +--------+---------+ + + + | Date | Type | Department | Care Team | Description | +--------+---------+ + + + | 10/18/ | Office | [facility] | Carmelita Craig, | Globus pharyngeus | | 2015 | Visit | Center at [facility] [address] | PA-C [address] | (Primary Dx); | | | | [address] | Ave [place], [place] | Dysphagia, | | | | Mailcode: CH5E | [address] | unspecified type; | | | | [facility] | [phone] | Chronic ethmoidal | | | | and Healing, | | sinusitis; Chronic | | | | [address] | | maxillary sinusitis | | | | Floor [place], [place] | | | | | | [address] | | | | | | [phone] | | | +--------+---------+ + + + [...] Craig PA-C - 10/19/2015 1:40 PM PDT [facility] HPI: Aniket Kendall is a 35 y.o. female who presents to the [facility] for fol low up of [...] sinus irrigati ons. Irrigate BID. Sent to [facility] cyclobenzaprine 10 mg oral tablet Take [...] | | 2018 | Visit | | [address] | | | | | | [place], [place] | | | | | | [address] | | | | | | [phone] | | | | | | | | +--------+---------+ + + + documented as of this encounter Procedures + +--------+ + + + | Procedure Name | Priori | Date/Time | Associated Diagnosis | Comments | | | ty | | | | + +--------+ + + + | [place] NASAL | Routin | 10/26/2015 | Dysphagia, [...]
--- OUTSIDE RECORDS SUMMARY | ~2018-11-18 | XMS | Encounter Summary ---
Demographics + + + | Address | [address] [place] [address] St. | | | [place] [address] | + + + | Home Phone | | + + + | Preferred Language | Unknown | + + + | Marital Status | | + + + | Lutheran Affiliation | NON | + + + | Race | White | + + + | Ethnic Group | Not or | + + + Author + + + | Author | [facility] | + + + | Organization | [facility] | + + + | Address [...] Team Providers + +------+ + | Care Driving School Instructor Name | Role | Phone | + +------+ + | Melvina TalleyP | PCP | | + +------+ + Reason for Visit + + + | Reason | Comments | + + + | Sleep apnea | Pt here for sleep study result | + + + | Consultation | | + + + Consultation (Routine) [...] | | | sleep apnea | E, [facility] | [address] | | | | | (adult) | [address] | [address] | | | | | (pediatric) | [address] | Edson Ornelas | | | | | Essential | [place], [place] | [address], | | | | | (primary) | [address] | [place] | | | | | hypertension | Phone: | [phone] | | | | | Procedures | [phone] | Phone: | | | | | CONSULT TO | Fax: | [phone] | | | | | ADULT SLEEP | [phone] | Fax: | | | | | MEDICINE | | [phone] | | | | | NE NEW | | | | | | | PATIENT | | | | | | | LEVEL V NE | | | | | | | EST PATIENT | | | | | | | LEVEL V | | | +--------+--------+ + + + + Encounter Details +--------+---------+ + + + | Date | Type | Department | Care Team | Description | +--------+---------+ + + + | 06/27/ | Office | Sleep Disorder | Rosalina, | Essential | | 2017 | Visit | [facility] [place] [facility] | Francesco Latham PA-C | hypertension | | | | [facility] | [address] | (Primary Dx); MOISÉS | | | | [address] | [address] [place], | (obstructive sleep | | | | [address] [place] Mailcode: | [place] [address] | apnea); Obesity (BMI | | | | [address] [place] | [phone] | 30-39.9) | | | | [facility] | | | | | | [address] [place], [place] | | | | | | [address] | | | | | | [phone] | | | +--------+---------+ + + + [...] + + + | Blood Pressure | 117/79 | 06/27/2016 1:46 PM | | | | | PDT | | + + + + + | Pulse | 74 | 06/27/2016 1:46 PM | | | | | PDT | | + + + + + | Temperature | - | - | | + + + + + | Respiratory Rate | - | - | | + + + + + | Oxygen Saturation | 97% | 06/27/2016 1:46 PM | | | | | PDT | | + + + + + | Inhaled Oxygen | - | - | | | Concentration | | | | + + + + + | Weight | 87.1 kg (192 lb) | 06/27/2016 1:46 PM | | | | | PDT | | + + + + + | Height | 160 cm (5' 3") | 06/27/2016 1:46 PM | | | | | PDT | | + + + + + | Body Mass Index | 34.01 | 06/27/2016 1:46 PM | | | | | PDT | | + + + + + documented in this encounter Patient Instructions Patient Instructions Francesco Romano PA-C - 06/27/2016 2:28 PM PDT If not contacted by your DME to receive supplies, checkup on your order by calling [facility] [address] [facility] [address] Kelvin PEÑA Ph. [phone] . Please bring all CPAP equipment to your sleep clinic follow-up appointments. Succeeding with Positive Airway Pressure (PAP) A troubleshooting guide to common problems You need three things to succeed with PAP. Most people with all three do very well with PA P therapy, but missing one or more of the three items will often prevent someone from succee ding with treatment. The three things you need to succeed with PAP are 1. CPAP settings that are high enough to keep your airway stable while you sleep (The most effective dose may feel too high until you get used to it with practice.) 2. A mask that seals comfortably and quietly 3. Reliable use of CPAP nearly all night every night Background There are great advantages to using positive airway pressure (PAP) to treat obstructive sle ep apnea (MOISÉS). The steady air flow of a PAP machine keeps your airway open and prevents the pauses in breathing that can put your health at risk and disturb your rest below the surfac e of your sleep. PAP helps you breathe and sleep better. The benefits from this are numerous and vary from patient to patient, though many patients feel more alert and refreshed when s leeping with PAP. Remember to talk to your PAP supplier if you have questions about your PAP maintenance, par ts, or have mask related complaints. You need to change your mask with the vendor within 4 weeks of receiving your first mask to be eligible for a free mask change, otherwise you'll n eed to purchase new style of mask out of pocket online or wait until the mask is 6 months ol d to change the mask style as an expense covered by insurance. Between sleep clinic appoint ments, contact your CPAP vendor and use the following tips to solve problems that are common to CPAP users. Nasal congestion Nasal stuffiness may arise on CPAP therapy if filter replacement and cleaning is not occuri ng regularly, if pressures are too low or may occur if CPAP is used without a humidifier. T alk to your doctor if your congestion is severe, or if you have nasal, sinus or ear pain. A few simple tips can reduce your nasal problems: Try using a saline nasal spray. This solution is simply a mixture of salt and water. You ca n find it on the shelf at your local drugstore. Apply a few sprays in each nostril before us ing your CPAP. Ask your doctor about treatments for environmental allergies if this is a common source for your congestion. Consider treating nasal congestion from colds or upper-respiratory infections with over the counter remedies. Find a good balance of humidification with your heated CPAP humidifier. The moisture that i t adds to the forced air usually resolves nasal congestion complaints for most sleep apnea p atients. Some CPAP models come with an "integrated" humidifier that is connected to the unit . You will need to make sure that you keep your humidifier clean to prevent infections. Ask your equipment supplier for a cleaning schedule and further information. In some cases increased pressure and increased humidification is required to remedy nasal c ongestion complaints. You should not awaken on CPAP feeling that you can't get enough air i n. If this occurs contact your doctor. Ear pressure Ear pressure that occurs while trying to fall asleep can often be prevented by making an ef fort not to swallow or yawn while inhaling, rather wait until you've exhaled completely befo re swallowing. The pressure diverted into the ear occurs on opening of the eustachian tube ( much like adjusting pressure by yawning, swallowing or chewing gum during flights). Difficulty breathing against so much air This problem is very common with higher pressure settings or when completely new to CPAP. If you are not used to breathing on CPAP it will usually feel very strange to breath on the mask initially. This feeling usually resolves with continued use. This "desensitization" will occur with practice and is much like getting used to a hot bath. Most people have had the experience of getting into a hot tub or bath and at first the water feels uncomfortably hot, yet later the same temperature feels great. Your PAP pressure sensation at first may b e uncomfortable, but should begin to feel acceptable or even good once you desensitize to th e treatment. Try these tips: Begin using CPAP for 30 to 60 minute periods of time during the day. Use it while you are w atching TV or reading. This can help your body begin to adjust to the air pressure. You may need to start by using it for only a few minutes at a time. Try to relax and breathe easily at a nice, relaxed pace. Let your reading or TV distract you during this exercise. Use your CPAP unit's "ramp" setting (usually a button with a small triangle or ramp shape). This starts the machine at a very low level of air pressure that is unlikely to benefit you , but will feel easier to breathe on. It slowly raises the pressure over 20 to 30 minutes u ntil it is at the right level. Take caution though as many patients on a low pressure will not sleep well or will not be comfortable due to the inadequate pressure. Many CPAP machines have a "Flex" or "pressure relief" setting that allows the pressure to b e reduced a small amount during each exhalation. If you continue to have difficulty with th e sense of pressure, ask your equipment company about changing this setting on your machine. Conversely, some patients are distracted by the fluctuating pressures that come from this setting. If the pressure dropping during exhalation is irritating ask your equipment compan y to reduce or disable this feature. A general rule for your first few weeks of CPAP is: It's normal for the pressure to feel t oo high but it is unacceptable for your pressure to feel too low. A very dry mouth from using CPAP. Some patients on CPAP will not be able to keep the air pressure in through the nose and kenneth k behind the tongue where it belongs. In these cases the air may escape out through the oj th while they sleep. If it is rare and limited to while you're awake then this is not a pro blem. If it is prolonged or frequent while asleep this may prevent your treatment from work ing and can disturb sleep. When this "mouth leak" occurs bed partners may notice the air co juany out through the mouth or patients may wake in the morning with a remarkably dry mouth, tongue, lips or cheeks. Try these tips: Use a chin strap with your nasal mask to keep your mouth closed while you sleep. Try using a "full face mask" that covers your nose and mouth. Try using a heated humidifier that fits your CPAP unit to moisten and warm the air blowing into your throat. Dry irritated eyes, loud squeaking or air rushing out from the side of your mask. These problems are all signs that air may be leaking out of your mask. These tips can help you correct the problem: Wash the clear soft portion of your mask that contacts your skin every day with soap and wa ter then ensure it's completely dry before using. Adjust the straps and headgear on your mask to obtain a better fit. With the pressure turn ed on, try over tightening and excessively loosening your mask to help identify the best lexie unt of tension on the headgear straps to obtain a quiet and comfortable fit. You may need to try a different size or type of mask may be needed--ask your vendor for hel p! Replace the soft portion of the mask that contacts your face or nose (these are usually henny led "cushions" or "pillows" and are covered by most insurances for replacement every 1 to 3 months). Ask your CPAP vendor for regular refills. Masks that go over the nose and mouth are often needed for patients that have nasal congest ion or air escaping through their mouths while using CPAP. However, the added contact area with these larger masks can make them more difficult to seal. The "cushions" on these masks must be washed daily and usually require replacement every one to two months. Talk to your CPAP supplier if you continue to have problems with air leaks. Redness or sore spots on your face, nose or forehead from the mask Most masks now have improved cushioning for a more comfortable fit. If your mask does cause soreness, these simple steps can help solve the problem: Loosen your straps slightly so that they are not too tight. Make sure that your mask is sti ll snug enough to prevent air leaks, but not so tight that it hurts your skin. See tips abo ve for improving leak. Many patients with mask soreness are over tightening their mask мария use the mask is worn out or oily. Consider buying pads that slip over your straps. Made of fleece or other soft material, the y keep the straps from rubbing against your skin. Talk to your CPAP supplier about trying a mask that fits the shape of your face better. Mild redness or lines on the face are common and acceptable if they resolve in a few hours. However, redness that persists, worsens, or an actual wound on the skin are unacceptable a nd require prompt contact with your equipment vendor for changing to a different mask that w ill not put pressure in that location. Call the sleep clinic for guidance if an actual open sore develops. documented in this encounter Progress Notes Francesco Romano PA-C - 06/27/2016 2:00 PM PDTFormatting of this note might be dif ferent from the original. Durable Medical Equipment Order & Demographic Data Patient name Aniket Lieberman 1980 [address] [place] [address] No relevant phone numbers on file. Insurance Information Payor: [employer] / Plan: [employer] [place] / Product Type: Medic aid / F/O Payor-Plan/Addr Policy # Cert # Phone # 1 [employer] - ROLL [employer]TER E* [id number] [phone] [address] [address] Sub Name: ANIKET LIEBERMAN Rel to Pt: Self Diagnosis: Obstructive Sleep Apnea (ICD-10: G47.33) Length of need: Lifetime (99 mo) 1. Provide new machine with settings Auto-CPAP set to pressure Minimum = 5 and Maximum = 15 cm H2O with heated humidification [E0562] and wireless modem[A9279]; assign [facility] Sleep [facility] gram as patient s provider in online data base. 2. Fit and supply Nasal Pillow or nasal mask, fit to patient's comfort. Refills as needed. - As needed to complete above order, provide required accessories with replacements as foll ows or as insurance permits: [A7034]Mask interface, 1 per 3 months [A7032]Cushion replacement, 2 per month [A7035]Headgear, 1 per 6 months [A4604]Heated Tubing, 1 per 3 months [A7038]Filter, disposable, 2 per month [A7039]Filter, non-disposable, 1 per 6 months [A7036]Chin band, 1 per 6 months [A7046]Humidifier chamber, 1 per 6 months Please fit to patient's comfort and also as needed to complete above order, provide the fol lowing accessories in place of the Mask and Cushion replacement above: [A7033]Pillow set, replacement, 2 set per month [A7030]Full-face mask, 1 per 3 months [A7031]Full-face cushion replacement 1 per month Francesco Romano PA-C Date: 06/27/2016 4:33 PM See Chart Routing report for where order was sent. ADBillinger, Francesco Latham PA-C - 06/27/2016 2:00 PM PDT New Sleep Consult: 06/27/16 Referring Provider: Lucy Castro PA-C [address] [place] [address] Primary Care Provider: TAMEKA Mistry [facility] [address] [facility] [address] [facility] [address] Assessment: Aniket Lieberman is a 35 y.o. female with a hx of HTN, fibromyalgia, depression, GERD, jewel ninfa who presents with newly diagnosed mild obstructive sleep apnea worse during REM sleep (REM apnea-hypopnea index was 25.5). The apnea-hypopnea index (AHI) was 13.5, minimum oxyge n saturation was 88% and there were 0.2 minutes spent with oxygen saturation of 88% or lower . Sleep was mildly disrupted by sleep disordered breathing. EKG was unremarkable. EMG was un remarkable. PLM index was 0.0 and PLM index with arousal was 0.0. Symptoms include excessiv e daytime fatigue, non-refreshing sleep, and disruptive snoring in the setting of a crowded oropharynx and weight gain. We discussed the pathophysiology of MOISÉS, the treatment options and the consequences of untr eated sleep apnea. She would like to try CPAP. Plan: - I will order APAP at 5 to 15 cm. of water. -Orders sent to DME in [place] (lives in [place], [place]) -Discussed 90d compliance window during which he will need to use CPAP an average of 4hrs p er night over a 30d period to meet in order to have machine covered by insurance. - Aspects of sleep hygiene were reviewed - keeping a routine schedule, maintaining adequate sleep. She was asked to refrain from driving if excessively sleepy. - Follow-up approximately 30-90 days to download and review machine data. Instructed to br ing machine/smartcard to the visit. I spent 45 min of face to face time with the patient with more than 50% spent on discussion and counseling (reviewing sleep study, treatment options for MOISÉS, sleep hygiene). Reason for referral: New patient sleep consultation History taken from patient alone and from the review of her sleep questionnaire. HISTORY OF PRESENT ILLNESS: Aniket Lieberman is a 35 y.o. female referred by Lucy Castro,* for evaluation a nd treatment of obstructive sleep apnea. Aniket completed a home apnea test prior to this vi sit. Her sleep study showed mild obstructive sleep apnea, worse during REM sleep. She presen ts today to review these results and discuss treatment options. Primary complaints include snoring, gasping during sleep, waking with a headache, dry mouth , excessive movement during sleep, restless sleep, waking in pain, waking with reflux. She h as been seeing ENT for a sense of a mass in her throat. Average sleep time is 5-6 hours per night. She has Difficulty with sleep onset and Difficulty with sleep maintenance. Associated daytime sxs include fatigue, irritability, problems with attention/concentration, depressio n. Previous sleep related medication trials include: Ambien, Lunesta, Belsomra. She scores 5/24 on the [place] Sleepiness Scale. She states that her weight has gone down by about 35 pounds. Average sleep pattern: Endorses problems falling asleep and problems staying asleep. She goes to bed at 11pm and falls asleep within 2-3 hours. She reports 5-10 awakenings about 5 minutes in duration each during the night. Total sleep time is about 5-6 hours. She wakes up at 9am and generally describes her nocturnal sleep as unrefreshing. Sleep ROS: Endorses restless leg sensations. There are weekly morning headaches. She denies any symptoms to suggest cataplexy, such as facial weakness and eyelid drooping o r leg buckling with extremes in emotion. In general, she also denies sleep paralysis, clear automatic behaviors, or hypnopompic or hypnogogic hallucinations. She denies any history of: drifting off the roadway or MVAs due to sleepiness or inattentio n. Past Medical History: Past Medical History: Diagnosis Date At risk for colon cancer CKD (chronic kidney disease) Depressive disorder Fibromyalgia Fibromyalgia 2004 GERD (gastroesophageal reflux disease) HTN (hypertension) Migraine PONV (postoperative nausea and vomiting) Sleep apnea Past Surgical History: Past Surgical History: Procedure Laterality Date BILATERAL TUBAL LIGATION EGD (ESOPHAGOGASTRODUODENOSCOPY) SINUS SURGERY march 01, 2015 TONSILLECTOMY TUBAL LIGATION Current Medications: Current Outpatient Prescriptions Medication Sig cyclobenzaprine 10 [...] No current facility-administered medications for this visit. Allergies: Penicillin Social History: Ms. Lieberman is single. She is not currently employed. With regards to caff eine use, she drinks 1 cups of coffee per day. She also never drinks alcoholic beverages, a verage 0 Tobacco History: History Smoking Status Current Every Day Smoker Packs/day: 1.00 Years: 20.00 Types: Cigarettes Last attempt to quit: 01/28/2015 Smokeless Tobacco Never Used Family History Problem Relation Thyroid Mother Thyroid Sister Cancer Maternal Grandmother Colon, breast Thyroid Maternal Grandmother Tremors Neg Hx Movement Disorders Neg Hx Review of Systems: Sleep: As above. See scanned questionnaire for details. Twelve systems reviewed. Physical Examination: Visit Vitals Item Reading BP 117/79 Pulse 74 Ht 1.6 m (5' 3") Wt 87.1 kg (192 lb) SpO2 97% BMI 34.01 kg/(m^2) . Oxygen saturation was recorded with the patient on room air. General: polite, cooperative, breathing comfortably in no acute distress ENT: Nasal septum is midline, the turbinates and the nasal valves are within normal limits. Teeth and gums are normal. Neck Circumference: 17 inches Oropharynx: Tonsils absent . Tongue is normal Mallampati grade: II. Thyroid: normal. Respiratory: Chest expansion and symmetry normal. Respiratory effort normal. Auscultation o f lungs normal. Cardiovascular: Auscultation of heart normal. No pedal edema. Lymphatic: No cervical or supraclavicular adenopathy. Musculoskeletal: Strength and tone normal. Extremities: No clubbing, cyanosis or edema. Skin: No rash or significant lesions noted. Neurological: face symmetric, palate elevated symmetrically, tongue midline, EOMI. Motor: Power 5/5 throughout, Sensory: Intact to LT throughout, no tremor,, tandem gait normal. Psychiatric: Oriented to time, place and person. Attentive. Mood and affect normal. Francesco Romano PA-C SLEEP DISORDER [facility]IC[facility] AT [facility] [address] [place] [address] Mailcode: [id number] [place] [address] documented in this encounter Plan of Treatment +--------+---------+ + + + | Date | Type | Specialty | Care Team | Description | +--------+---------+ + + + | 12/08/ | Office | Neurology | Keon Gerber, | | | 2018 | Visit | | [address] | | | | | | [place], [place] | | | | | | [address] | | | | | | [phone] | | | | | | | | +--------+---------+ + + + documented as of this encounter Visit Diagnoses + + | Diagnosis | + + | Essential hypertension - Primary | + + | MOISÉS (obstructive sleep apnea) Obstructive sleep apnea (adult) (pediatric) | + + | Obesity (BMI 30-39.9) Obesity, unspecified | + + documented in this encounter
--- OUTSIDE RECORDS SUMMARY | ~2018-11-18 | XMS | Encounter Summary ---
Demographics + + + | Address | [address] [place] [address] St. | | | [place] [address] | + + + | Home Phone [...] Team Providers + +------+ + | Care Perioperative Tech Name | Role | Phone | + +------+ + | Melvina TalleyP | PCP | | + +------+ + Encounter Details +--------+ + + + + | Date | Type | Department | Care Team | Description | +--------+ + + + + | 07/31/ | Documentati | [place] [facility] | Haroon Biggs, | | | 2016 | on | [facility] at [facility] [address] [place] | | | | | [address] | | | | | | Mailcode: CHE | | | | | | [facility] | | | | | | and Healing, | | | | | | [address]th | | | | | | Floor [place], [place] | | | | | | [address] | | | | | | [phone] | | | +--------+ + + + [...] | | 2019 | Visit | | [address] | | | | | | [place], [place] | | | | | | [address] | | | | | | [phone] | | | | | | | | +--------+---------+ + + + documented as of this encounter Visit Diagnoses Not on filedocumented in this encounter"
--- OUTSIDE RECORDS SUMMARY | ~2018-11-18 | XMS | Encounter Summary ---
Demographics + + + | Address | [address] [place] [address] St. | | | [place] [address] | + + + | Home Phone [...] Team Providers + +------+ + | Care Retail Tire Sales Manager Name | Role | Phone | + +------+ + | Melvina TalleyP | PCP | | + +------+ + Reason for Referral Speech Therapy (Routine) +--------+--------+ + + + [...] | | | | CONSULT TO | [place], [place] | [address] | | | | | [facility] | [address] | Physician's | | | | | THERAPY | Phone: | Pavilion | | | | | | [phone] | [place], [place] | | | | | | Fax: | [address] | | | | | | [phone] | Phone: | | | | | | | [phone] | | | | | | | Fax: | | | | | | | [phone] | +--------+--------+ + + + + Encounter Details +--------+ + + + + | Date | Type | Department | Care Team | Description | +--------+ + + + + | 02/15/ | Registered Physical Therapist | Otolaryngology | Zochowski, | Dysphagia, | | 2015 | | Laryngology Services | Lucy Ohara PA-C | unspecified type | | | | at [facility] [address] | [address] | (Primary Dx) | | | | [address] [place], | [facility], [place] | | | | | [place] [address] | [address] | | | | | [phone] | [phone] | | | | | | | [...] | | 2019 | Visit | | [address] | | | | | | [place], [place] | | | | | | [address] | | | | | | [phone] | | | | | | | | +--------+---------+ + + + documented as of this encounter Results X-RAY ESOPHAGRAM (03/26/2016 11:43 [...] Account, Antione Barbosa In Interface - 03/26/2016 12:03 PM PST [...] 12 mm tablet. Imaging utilizing videofluoroscopy was | | | performed in both frontal and lateral view. FINDINGS: Patient | | | swallowed all materials without evidence of aspiration or | | | penetration. Normal contractility was evident. No residual was | | | noted. A barium tablet rapidly traversed the pharynx and esophagus | | | without obstruction. IMPRESSION: Normal modified barium swallow | | | Please see separate Speech Pathology report. By my electronic | | | signature listed below, I, the attending radiologist, was present for | | | the entire procedure as described in this note. I have | | | personally reviewed the images and, if necessary, edited the | | | report. I agree with the report as now presented. | | + + + + + | Procedure Note | + + | Service Account, Medical Envelope In Interface - 03/26/2016 11:54 AM PST [...] unspecified type - Primary | + + documented in this encounter"
--- OUTSIDE RECORDS SUMMARY | ~2018-11-18 | XMS | Clinical Summary ---
Demographics + + + | Address | [address] | | | [place] [address] | + + + | Home Phone | | + + + | Preferred Language | Unknown | + + + | Marital Status | | + + + | Muslim Affiliation | Unknown | + + + | Race | Unknown | + + + | Ethnic Group | Unknown | + + + Author + + + | Author | [facility] | | | and Brandynana | + + + | Organization | [facility] | | | and [...] Team Providers + +------+ + | Care Senior Center Director Name | Role | Phone | + +------+ + | Melvina Talley | PCP | | | BI DEVELOPER | | | + +------+ + Allergies [...] 11/08/2016 | + + + | Other terminal makeup operator (current) drug therapy | 11/08/2016 | [...] | [employer] | [facility] | [id number] | | [phone] | | Medica | [...] | 1981 | [phone] | [place] [address] | | | paramjit | | | 6 (Home) | | + +--------+ +--------+ + + Advance Directives Patient has advance care planning documents on file. For more information, please contact:Augustin [facility] [place] [address]
--- OUTSIDE RECORDS SUMMARY | ~2018-11-18 | XMS | Encounter Summary ---
Demographics + + + | Address | [address] [place] [address] St. | | | [place] [address] | + + + | Home Phone [...] Team Providers + +------+ + | Care Open Hearth Melter Name | Role | Phone | + [...] Questions About | | 2019 | | [facility] | MD [address] | Diagnosis | | | | Healing [address] | [place], [place] | | | | | [address] Mailcode: | [address] | | | | | [facility] | [phone] | | | | | Health and Healing, | | | | | | [facility] | | | | | | [place], [place] | | | | | | [address] | | | | | | [phone] | | | +--------+ + + + [...] | | 2019 | Visit | | [address] | | | | | | [place], [place] | | | | | | [address] | | | | | | [phone] | | | | | | | | +--------+---------+ + + + documented as of this encounter Visit Diagnoses Not on filedocumented in this encounter"
--- OUTSIDE RECORDS SUMMARY | ~2018-11-18 | XMS | Encounter Summary ---
Demographics + + + | Address | [address] [place] [address] St. | | | [place] [address] | + + + | Home Phone [...] Team Providers + +------+ + | Care Granite Countertop Installer Name | Role | Phone | + [...] + + | 04/19/ | Hospital | [facility] GI PROCEDURE | Guzman Mccormick, | | | 2017 | Encounter | [address] | | | | | | Vijaya Mailcode: [facility] | | | | | | [facility] | | | | | | Health and Healing, | | | | | | [address] | | | | | | [place], [place] | | | | | | [address] | | | | | | [phone] | | | +--------+ + + + [...] Discharge Instructions Instructions Kartik Blackburn RN - 04/19/2016[facility] Instructions after EGD (Upper Endoscopy ) You [...] hours or on weekends and holiday Hospital Wing Coverer toll free [phone] and have the GI doctor construction worker paged. The provider who performed your procedure [...] m the original. PRE PROCEDURE NOTE: MR# [id number] Subjective: Aniket Kendall is a 35 y.o. [...] | | 2018 | Visit | | [address] | | | | | | [place], [place] | | | | | | [address] | | | | | | [phone] | | | | | | | [...] + | MRN: | [id number] | | [id number] Date: 04/19/2016Patient Name: Order #: [id number] | ENDOSCOPY | | of : 1980CSN: [id number]: [facility] | | | 3Procedure: Upper GI | | | endoscopyIndications: Heartburn, Globus | | | sensationProviders: GUZMAN MCCORMICK MD (Doctor), | | | KARTIK BLACKBURN RN (Nurse), | | | CLAUDIA CARTER, State Epidemiologist (State Epidemiologist)Referring | | | MD: ANGEL HAQ-CRequesting Provider: | | | Medicines: Fentanyl 100 micrograms IV, Midazolam 3 | | | mg IVComplications: No immediate complications. Estimated | | | blood loss: | | | Minimal.Procedure: Pre-Anesthesia | | | Assessment: - ASA Grade | | | Assessment: II - A patient with mild | | | systemic | | | disease. Prior to the | | | procedure, a History and Physical with | | | airway assessment was | | | performed (see patient record), | | | and patient medications and | | | allergies were reviewed. The | | | risks and benefits of the procedure and the sedation | | | options and risks were | | | discussed. All questions were | | | answered and informed consent was obtained. After | | | reviewing the risks and | | | benefits, the patient was deemed | | | in satisfactory condition to | | | undergo the procedure. | | | Immediately prior to administration of medications, the | | | patient was re-assessed for | | | adequacy to receive | | | sedatives. The heart rate, respiratory rate, oxygen | | | saturations, blood pressure, | | | adequacy of pulmonary | | | ventilation, and response to care were monitored | | | throughout the procedure. The | | | physical status of the | | | patient was re-assessed after the | | | procedure. The Olympus | | | [id number]-[id number] Endoscope #[id number] was introduced | | | through the mouth, and | | | advanced to the second part of | | | duodenum. The upper GI | | | endoscopy was accomplished with | | | ease. The patient tolerated | | | the procedure well.Findings: The esophagus and | | | gastroesophageal junction were examined with white light from | | | a forward view and retroflexed position. There were | | | esophageal mucosal changes suspicious for short-segment Figueroa's | | | esophagus. These changes involved the mucosa along an | | | irregular Z-line (34 cm from the incisors). Two tongues of | | | salmon-colored mucosa were present from 34 to 35 cm. The | | | maximum longitudinal extent of these esophageal mucosal [...] heart rate, blood pressure, and response to | | | care. Moderate (conscious) sedation was administered by the | | | endoscopy nurse and supervised by the endoscopist. 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 Biopsied. | | | - Normal stomach. - Normal | | | examined duodenum.Recommendation: - Await pathology | | | results. - Recommend acid | | | suppression medication.GUZMAN MCCORMICK MD04/19/2016 11:32:42 AMNumber of | | | Addenda: 0Note Initiated On: 04/19/2016 10:56 AM | | + + + + +---------+ + + | Performing | Address | City/State/[facility] | Phone Number | | Organization | [...] PATHOLOGY | | | | al junction, | | | | | | biopsy: - | | | | | | Squamocolumnar | | | | | | junctional mucosa with | | | | | | no diagnostic | | | | | | abnormality - | | | | | | Negative for intestinal | | | | | | metaplasia and | | | | | | dysplasia Case | | | | | | seen by:Carmen Gonzalez, | | | | | | /Surgical Pathology | | | | | | Eriberto Naidu | | | | | | DO/Pathologist [...] | | | | | entire sample | | | | | | submitted. | | | | | | [...] | | | | | | Diagnostician: Bita | | | | | | Sanya Naidu | | | | | | DOPathologistElectronica | | | | | | lly Signed | | | | | | 04/23/2016 4:05PM | | | | + + + + + + + + | Specimen | + + | Tissue | + + + + + | Narrative | Performed At | + + + | | | + + + + + + + + | Performing | Address | City/State/Zipcode | Phone Number | | Organization | | | | + + + + + | [facility] | [address] | [place] [address] | | | PATHOLOGY | [address] [...] INTRAPROCEDURE | | | PRN, Starting Deandra /04/06 at 1028, | | | Until Deandra 3/04/06 at 1800, sore | | | oropharynx [...] | | | | | Starting Deandra 3//17 at 1115, | | AM PST | | | | | Until Deandra 3/04/06 at 1115 | | | | | | + +-------+ +------+---+---+ +---+---+ | | | +---+---+ + +-------+ +------+---+---+ | midazolam (PF) (VERSED) | Given | 04/20/19 | 1 mg | | | | injection INTRAPROCEDURE PRN, | | 17 11:17 | | | | | Starting Deandra 04/19/16 at 1117, | | AM PST | | | | | Until Deandra 04/19/16 at 1117 | | | | | | + +-------+ +------+---+---+ +---+---+ | | | +---+---+ + +-------+ +------+---+---+ | midazolam (PF) (VERSED) | Given | 04/20/19 | 1 mg | | | | injection INTRAPROCEDURE PRN, | | 17 11:19 | | | | | Starting Deandra 04/19/16 at 1119, | | AM PST | | | | | Until Deandra /04/06 at 1119 | | | | | [...] | | | Starting Deandra 3/04/06 at 1108, | | AM PST | | | | | Until Deandra 3 at 1108 | | | | | | + +-------+ +------+---+---+ + +---+ | | | + +---+ | simethicone (MYLICON) | | | suspension 3.333 mg 3.333 mg | | | (rounded from 3.3333 mg = 1 | | | drop), oral, HSD PRN, Starting | | | Deandra 3/04/06 at 1028, Until Deandra | | | 3/2/17 at 1800, bloating, gas | | | bubbles | | + +---+ | | | + +---+ documented in this encounter"
--- OUTSIDE RECORDS SUMMARY | ~2018-11-18 | XMS | Clinical Summary ---
Demographics + + + | Address | [address] | | | [place] [address] | + + + | Home Phone | | + + + | Preferred Language | Unknown | + + + | Marital Status | | + + + | Temple Affiliation | Unknown | + + + | Race | Unknown | + + + | Ethnic Group | Unknown | + + + Author + + + | Author | [facility] (Historical as of | | | 10-04-18) | + + + | Organization | [facility] (Historical as of | | | 10-04-18) [...] Team Providers + +------+ + | Care Application Architect Manager Name | Role | Phone | + +------+ + | Melvina Talley SCREW DRIVER OPERATOR | PP | | + +------+ + [...] +------+-------+ + | MEDICAID | [place] | [id number] | | | [address] | | | N | | | | [place] | | | [place] | | | | [address] | | | MIS DIRECTOR | | | | | + +--------+ [...] | | | paramjit | | | [phone] | [address] | + +--------+ +--------+ + +
--- OUTSIDE RECORDS SUMMARY | ~2018-11-18 | XMS | Encounter Summary ---
Demographics + + + | Address | [address] [place] [address] St. | | | [place] [address] | + + + | Home Phone | | + + + | Preferred Language | Unknown | + + + | Marital Status | | + + + | Christianity Affiliation | NON | + + + | Race | White | + + + | Ethnic Group | Not or | + + + Author + + + | Author | [facility] | + + + | Organization | [facility] | + + + | Address [...] Team Providers + +------+ + | Care Hospitality Team Member Name | Role | Phone | + [...] | 2017 | Encounter | Center at [facility] [address] | MD | | | | [address] | | | | | | Mailcode: Center | | | | | | [facility] and | | | | | | [facility] 2 | | | | | | [place], [place] | | | | | | [address] | | | | | | [phone] | | | +--------+ + + + [...] | | 2018 | Visit | | [address] | | | | | | [place], [place] | | | | | | [address] | | | | | | [phone] | | | | | | | | +--------+---------+ + + + documented as of this encounter Visit Diagnoses Not on filedocumented in this encounter"
--- OUTSIDE RECORDS SUMMARY | ~2018-11-18 | XMS | Encounter Summary ---
Demographics + + + | Address | [address] [place] [address] St. | | | [place] [address] | + + + | Home Phone | | + + + | Preferred Language | Unknown | + + + | Marital Status | | + + + | Caodaism Affiliation | NON | + + + [...] Team Providers + +------+ + | Care Monitoring Analyst Name | Role | Phone | + [...] | | 2019 | Encounter | [place] [address] | [address] | Cervical Sp[facility]'s | | | | [address] | [place], [place] | | | | | [place], [place] | [address] | | | | | [address] | [phone] | | | | | [phone] | | | +--------+ + + + [...] | | 2019 | Visit | | [address] | | | | | | [place], [place] | | | | | | [address] | | | | | | [phone] | | | | | | | | +--------+---------+ + + + documented as of this encounter Visit Diagnoses Not on filedocumented in this encounter"
--- OUTSIDE RECORDS SUMMARY | ~2018-11-18 | XMS | Encounter Summary ---
Demographics + + + | Address | [address] [place] [address] St. | | | [place] [address] | + + + | Home Phone [...] Team Providers + +------+ + | Care Government Minister Name | Role | Phone | + [...] | | | | joint Cyst | TECHNICAL OPERATIONS SPECIALIST [address] | | | | | and mucocele | ST | [place], [place] | | | | | of nose and | [address] | [address] | | | | | nasal sinus | [place], | Phone: | | | | | Ins[place], | [place] | [phone] | | | | | unspecified | [address] | Fax: | | | | | | Phone: | [phone] | | | | | | [phone] | | | | | | | Fax: | | | | | | | [phone] | | + +--------+ + + + + Encounter Details +--------+---------+ + + + | Date | Type | Department | Care Team | Description | +--------+---------+ + + + | 06/25/ | Office | [facility] | Carmelita Craig, | Chronic ethmoidal | | 2019 | Visit | Center at [facility] [address] | PA-C [address] | sinusitis; Chronic | | | | [address] | Ave [place], [place] | maxillary sinusitis | | | | Mailcode: CH5E | [address] | | | | | [facility] | [phone] | | | | | and Healing, | | | | | | Building | | | | | | Floor [place], [place] | | | | | | [address] | | | | | | [phone] | | | +--------+---------+ + + + [...] Craig PA-C - 06/25/2018 2:30 PM PDT [facility] HPI: Aniket Sweeney is a 37 y.o. female who presents to the [facility] in [facility] for Chronic rhinosinusitis. She is s/p sinus surgery (03/01/2015) with Dr. Biggs. Maria Inse garcia seen on 10/19/2015. Current symptoms include [...] [address] | | | | | | [place], [place] | | | | | | [address] | | | | | | [phone] | | | | | | | | +--------+---------+ + + + documented as of this encounter Procedures + +--------+ + + + | Procedure Name | Priori | Date/Time | Associated Diagnosis | Comments | | | ty | | | | + +--------+ + + + | CO NASAL | Routin | 06/27/2018 | Chronic [...]
--- OUTSIDE RECORDS SUMMARY | ~2018-11-18 | XMS | Encounter Summary ---
Demographics + + + | Address | [address] [place] [address] St. | | | [place] [address] | + + + | Home Phone [...] Team Providers + +------+ + | Care Digital Sales Manager Name | Role | Phone [...] Closed | | Neurology | Diagnoses | | Analisa, | | | | | Other | Gerri, | Gallo Alvarenga MD | | | | | amnesia | Melvina Brewster, | [address] | | | | | | SECURITY AND PRIVACY CONSULTANT [address] | | | | | | [address] | [address] [place], | | | | | | [id number] | [place] | | | | | | [place], | [address] | | | | | | [place] | | | | | | | [address] | | | | | | | Phone: | | | | | | | [phone] | | | | | | | Fax: | | | | | | | [phone] | | +--------+--------+ + + + + Encounter Details +--------+---------+ + + + | Date | Type | Department | Care Team | Description | +--------+---------+ + + + | 03/18/ | Office | Neurology at | Gallo Hauser, | Migraine without | | 2016 | Visit [facility] MD | aura and without | | | | Healing [address] | | status migrainosus, | | | | [address] Mailcode: | | not intractable | | | | [id number] | | (Primary Dx); | | | | [facility], | | Abnormal brain MRI; | | | | | | Myoclonus; Memory | | | | Floor [facility] [place] | | changes | | | | [address] | | | | | | [phone] | | | +--------+---------+ + + + [...] + + + | Blood Pressure | 119/76 | 03/18/2015 11:06 AM | | | | | PST | | + + + + + | Pulse | 82 | 03/18/2015 11:06 AM | | | | | PST [...] + + + + | Weight | 92.5 kg (204 lb) | 03/18/2015 11:06 AM | | | | | PST | | + + + + + | Height | - | - | | + + + + + | Body Mass Index | 36.14 | 03/01/2015 8:15 AM | | | | | PST | | + + + + + documented in this encounter Patient Instructions Patient Instructions Gallo Hauser MD - 03/18/2015 12:07 PM PSTSupplements shown to help with headache prevention: Butterbur: 50-75 mg two times per day (150 mg total for the day) [may cause liver damage] Magnesium (oxide, gluconate, glycinate or aspartate) 400 mg per day. Other types cause diar matheus. May also be taken 200-400 mg for abortive therapy of headaches. Riboflavin: 400 mg per day (may take it 200 mg two times per day) Feverfew 50-300 mg two times per day There is a product called Preventa migraine from [employer] that contains all of the above supplements in one. Migreleif is an alternate product that contains magnesium, rib oflavin and feverfew. Additionally: Acupuncture, cognitive behavior therapy, biofeedback, aerobic exercise and isometric neck e xercises are non medical treatments that have been shown to be useful in headache treatment and prevention. There are also some studies supporting a gluten-free diet in the reduction o f headaches. documented in this encounter Progress Notes Gallo Hauser MD - 03/18/2015 11:14 AM PSTFormatting of this note might be different fro m the original. NEUROLOGY NEW CLINIC NOTE Author: Gallo Hauser MD Date/Time: 03/18/2015 11:14 AM Requesting Attending: Melvina Talley NP Reason for Consultation: abnormal brain imaging, memory loss, walking difficulty, fatigue, soft spots on her head, headaches and slurred speech. HPI: Aniket Kendall is a 34 year old right-handed who is being seen at [facility] for evaluation of abnormal brain imaging, memory loss, walking difficulty , fatigue, soft spots on her head, headaches and slurred speech. She states that her symptom s started when she was 17 years old. This started with chronic pain all over. She was also h aving episodes where she would have lapses of memory spanning for several hours at a time. S he would also have intermittent singular body jerks. She had an EEG and an MRI that were bot h done at [facility]. We do not have records of the EEG however the MRI did show asymmetry of the hippocampi with the right slightly smaller than the left, ultimately they felt the MRI was w ithin normal limits. She was not treated for seizures at that time. She also has had headach es since this time. She does not really get a warning that they are going to come on. They s tart in the back of her head and she will feel a swelling in the back of her head. Her neck will get stiff and it will hurt to move it. The pain is described as throbbing. She will get sensitive to light and sound as well as nausea. This will usually last 2-3 days. She takes tylenol and ibuprofen for these. She was on butalbital and Imitrex however these did not hel p. She has not been on a preventative. She will now get these to some degree every day with bad ones two days per week. Then starting in 2009 she started to have episodes where she megha l have difficulty processing what people tell her. She will also "sound drunk" and can have trouble getting the words out (however she can see them in her head), the words may also com e out "jumbled." Then in 2012 she started to have the memory loss, particularly with short t erm memory. She states that she cannot remember pieces of what she did the previous day. She will also wake up a few days per week where she will try to get out of bed and stand next t o her bed however her legs will freeze and she cannot initiate walking. This will last for 2 -3 minutes. She also noticed that she has some indentations on her scalp that change in size but are always present. With these symptoms coming on she had a repeat MRI and EEG. The EEG was normal. The MRI showed some mild white matter disease. She also had two lumbar puncture s which were unremarkable, the second did oligoclonal bands and IGG index. She did get signi ficant post-LP headaches with these. Finally, she started to get body jerks but are more com mon in the legs, she gets an uncomfortable tingly feeling in the leg then it will jerk. This happens a couple times per week when she is awake as well as frequently during sleep. Labs from Dr Hanna at [facility]: TSH TSH 1.72 CERULOPLASMIN 50 COPPER, SERUM COPPER 224 (mildly elevated) WBC 7.9 RBC 4.77 HGB 13.7 HCT 42.2 MCV 88.5 MCH 28.7 MCHC 32.4 RDW SD 38.9 PLT 277 MPV 8.1 DIFF TYPE AUTOMATED NEUTROPHILS 51.9 LYMPHOCYTES 38.7 MONOCYTES 4.9 EOSINOPHILS 4.2 BASOPHILS 0.3 Most recent MRI done at [facility]. PMH: HTN (hypertension) GERD (gastroesophageal reflux disease) Fibromyalgia CKD (chronic kidney disease) PONV (postoperative nausea and vomiting) Fibromyalgia 2004 Home Meds: cyclobenzaprine 10 mg oral tablet, Take 10 mg by mouth every twelve hours. Do not use longe r than 2-3 weeks. ERGOCALCIFEROL, VITAMIN D2, (VITAMIN D ORAL), Take 5,000 Units by mouth. lisinopril 5 mg oral tablet, Take 5 mg by mouth once daily. Nebivolol 10 mg oral tablet, Take 10 mg by mouth every twelve hours. omeprazole 20 mg oral capsule,delayed release(DR/EC), Take 20 mg by mouth every twelve hour s. oxyCODONE CR 10 mg oral tablet extended release 12 hr, Take 10 mg by mouth every twelve kimberly rs. spironolactone 25 mg oral tablet, Take 25 mg by mouth two times daily. zolpidem 10 mg oral tablet, Take 10 mg by mouth once daily at bedtime as needed for sleep. Allergies: Allergies Allergen Reactions Penicillin Rash Social History: History Social History Marital Status: Single Spouse Name: N/A Number of Children: N/A Years of Education: N/A Occupational History Not on file. Social History Main Topics Smoking status: Current Every Day Smoker -- 1.00 packs/day for 20 years Types: Cigarettes Last Attempt to Quit: 01/28/2015 Smokeless tobacco: Never Used Alcohol Use: No Comment: none Drug Use: No Comment: none Sexual Activity: Yes Control/ Protection: Surgical Comment: tubal ligation Other Topics Concern Not on file Social History Narrative She lives in [facility] [place] with her boyfriend and her two kids. 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 Family History: sister with similar symptoms. Being evaluated for Sjogrens and Lyme. Also c arries two genes for both MS and ALS. Review of Systems: A complete system review was done with patient, reviewed by me, and documented in the accom panying scanned clinic intake notes. This was negative with the exception of: change in slee p habits, weight gain, pain, memory changes, numbness/tingling, dizziness, weakness, blurred vision, headache, seizures, speech changes, unbalanced walking, nosebleeds, sores in mouth, shortness of breath, cold intolerance, nausea/vomiting, problems swallowing, change in appe tite, reflux, constipation, easy bleeding, joint swelling, joint pain, stiffness, worried, a nxious and sad/depressed. PE: BP 119/76 | Pulse 82 | Wt 92.534 kg (204 lb) | BMI 36.15 kg/(m^2) Admission Weight: Weight: 92.534 kg (204 lb) (03/18/15 1106) Constitutional: NAD Psychiatric: Mood/Affect: normal/appropriate Neurological: Mental Status: Level of consciousness: awake, alert Orientation: x4 MoCA: 27/30 Cranial Nerves: I: Not tested II: PERRL, visual burns full to confrontation bilaterally. III, IV, : Gaze conjugate, EOMI, bilateral few beats of nystagmus. V: Sensation intact and symmetric to light touch V1-V3 VII: Symmetric facial motor function bilaterally VIII: Intact to finger rub bilaterally IX: Palate elevates symmetrically X: Normal cough XI: Normal shrug bilaterally XII: Tongue protrudes midline Motor: Normal tone in all groups. No drift. Delt Tri Bi WE WF DI HF HE KF KE APF ADF Left 5 5 5 5 5 5 5 5 5 5 5 5 Right 5 5 5 5 5 5 5 5 5 5 5 5 DTRs: Biceps Triceps Brachioradialis Knee Left 2+ 2+ 2+ 2+ Right 2+ 2+ 2+ 2+ Plantar response is flexors bilaterally Mcgrath's sign is absent bilaterally Sensation: Light touch: Intact and symmetric in the bilateral upper and lower extremities. Coordination: Finger to nose:normal Heel to davidson:normal Gait: normal casual gait, able to toe, heel and tandem walk Romberg: negative IMAGING: Images and reports personally reviewed and show: I have requested the actual image s from [facility] but have not received them yet. The description on the report sounds like non-specific white matter lesions which are not consistent with MS. Diagnosis: - migraine without aura, not intractable, without status migrainosus - abnormal brain MRI - possible myoclonus - memory changes Assessment: Aniket Kendall is a 34 year old right-handed who is being seen at [facility] for evaluation of abnormal brain imaging, memory loss, walking dif ficulty, fatigue, soft spots on her head, headaches and slurred speech. Her headaches are co nsistent with migraines and she is now having them frequent enough to consider a preventativ e treatment. I have recommended that she start amitriptyline 25 mg q HS since it can help wi th both her migraines and her chronic pain. We also discussed that non-prescription options that are listed below. She was also concerned about Multiple Sclerosis. We discussed that sh e does not have any symptoms that sound like MS attacks. Her MRI report is also reassuring a s the lesions described do not sound like MS lesions. I have requested the actual MRI images which they are sending on disc. I will call Aniket with my impression when I receive the di sc. Her LP results also are evidence against MS. She has memory symptoms that are likely a r esult of her migraines and chronic pain. She was reassured by her normal cognitive exam (TnC A ). Ultimately many of her symptoms could be secondary to her migraines. I would not r ecommend any further evaluation at this time. She can follow up as needed. Supplements shown to help with headache prevention: Butterbur: 50-75 mg two times per day (150 mg total for the day) [may cause liver damage] Magnesium (oxide, gluconate, glycinate or aspartate) 400 mg per day. Other types cause diar matheus. May also be taken 200-400 mg for abortive therapy of headaches. Riboflavin: 400 mg per day (may take it 200 mg two times per day) Feverfew 50-300 mg two times per day There is a product called Preventa migraine from [employer] that contains all of the above supplements in one. Migreleif is an alternate product that contains magnesium, rib oflavin and feverfew. Additionally: Acupuncture, cognitive behavior therapy, biofeedback, aerobic exercise and isometric neck e xercises are non medical treatments that have been shown to be useful in headache treatment and prevention. There are also some studies supporting a gluten-free diet in the reduction o f headaches. Plan: - start amitriptyline 25 mg q HS - MRI images requested - Follow up as needed I spent more than 50 minutes with this patient of which greater than 50% was spent counseli ng the patient about her diagnoses and treatment options. Gallo Hauser MD [employer] Department of Neurology documented in this en counter Plan of Treatment +--------+---------+ + + + | Date | Type | Specialty | Care Team | Description | +--------+---------+ + + + | 12/08/ | Office | Neurology | Keon Gerber, | | | 2019 | Visit | | [address] | | | | | | [place], [place] | | | | | | [address] | | | | | | [phone] | | | | | | | | +--------+---------+ + + + documented as of this encounter Visit Diagnoses + + | Diagnosis | + + | Migraine without aura and without status migrainosus, not intractable - Primary | | Migraine without aura, without mention of intractable migraine without mention of status | | migrainosus | + + | Abnormal brain MRI Nonspecific (abnormal) findings on radiological and other | | examination of skull and head | + + | Myoclonus | + + | Memory changes Memory loss | + + documented in this encounter
--- OUTSIDE RECORDS SUMMARY | ~2018-11-18 | XMS | Encounter Summary ---
Demographics + + + | Address | [address] [place] [address] St. | | | [place] [address] | + + + | Home Phone [...] Team Providers + +------+ + | Care Sew On Operator Name | Role | Phone | [...] | Laryngology Services | MD Maria T [address] [facility] | | | | | at [facility] [address] | | | | | [place], | [place], [place] | | | | | [place] [address] | [address] | | | | | [phone] | [phone] | | | | | | | [...] | | 2019 | Visit | | [address] | | | | | | [place], [place] | | | | | | [address] | | | | | | [phone] | | | | | | | | +--------+---------+ + + + documented as of this encounter Visit Diagnoses Not on filedocumented in this encounter"
--- OUTSIDE RECORDS SUMMARY | ~2018-11-18 | XMS | Encounter Summary ---
Demographics + + + | Address | [address] [place] [address] St. | | | [place] [address] | + + + | Home Phone [...] Providers + +------+ + | Care Wood Heel Flap Inserter Name | Role | Phone | + +------+ + | Melvina Talley | PCP | | + +------+ + Encounter Details +--------+ + + + + | Date | Type | Department | Care Team | Description | +--------+ + + + + | 03/26/ | Hospital | Diagnostic Imaging | [place], | | | 2017 | Encounter | Services at [facility] | Lucy Ohara PA-C | | | | | [address] | [address] | | | | | [address] Mailcode: | [place], [place] | | | | | [address] [facility] | [address] | | | | | [place], [place] | [phone] | | | | | [address] | | | | | | [phone] | | | +--------+ + + + [...] [address] | | | | | | [place], [place] | | | | | | [address] | | | | | | [phone] | | | | | | | [...] Note | + + | Service Account, [employer] In Interface - 03/26/2016 12:03 PM [facility] Double | | contrast esophagramHISTORY: DysphagiaCOMPARISONS: [...] Note | + + | Service Account, [employer] In Interface - 03/26/2016 11:54 AM PST [...]
--- OUTSIDE RECORDS SUMMARY | ~2018-11-18 | XMS | Encounter Summary ---
Demographics + + + | Address | [address] | | | [place] [address] | + + + | Home Phone | | + + + | Preferred Language | Unknown | + + + | Marital Status | | + + + | Anglican Affiliation | Unknown | + + + | Race | Unknown | + + + | Ethnic Group | Unknown | + + + Author + + + | Author | [facility] | | | and [place] | + + + | Organization | [facility] | | | and [place] [...] Team Providers + +------+ + | Care Waiter/Waitress Second Class Name | Role | Phone | + +------+ + | Melvina Talley | PCP | | | [facility] | | | + +------+ + Encounter Details +--------+ + + + + | Date | Type | Department | Care Team | Description | +--------+ + + + + | 09/17/ | Orders Only | [facility] | Provider, | Essential (primary) | | 2019 | | SYSTEM GENERIC OP | MD [address] | hypertension; | | | | CONVERSION [address] | [address]. | [facility] | | | | [address] [place], [place] | [place] [address] | | | | | [address] | | | | | | [phone] | | | +--------+ + + + [...] of this encounter Plan of Treatment + +--------+ + + | Name | Priori | Associated Diagnoses | Order Schedule | | | ty | | | + +--------+ + + | Renal Function Panel | Routin | Essential | Expected: | | | e | (primary) | 04/09/2018, Expires: | | | | hypertension | 10/07/2018 | | | | Proteinuria | | + +--------+ + + | CBC with Differential | Routin | Essential | Expected: | | | e | (primary) | 04/09/2018, Expires: | | | | hypertension | 10/07/2018 | | | | Proteinuria | | + +--------+ + + | Magnesium | Routin | Essential | Expected: | | | e | (primary) | 04/09/2018, Expires: | | | | hypertension | 10/07/2018 | | | | Proteinuria | | + +--------+ + + | Protein/Creatinine Ratio, Urine | Routin | Essential | Expected: | | | e | (primary) | 04/09/2018, Expires: | | | | hypertension | 10/07/2018 | | | | Proteinuria | | + +--------+ + + documented as of this encounter Visit Diagnoses + + | Diagnosis | + + | Essential (primary) hypertension Unspecified essential hypertension | + + | Proteinuria | + + documented in this encounter"
--- OUTSIDE RECORDS SUMMARY | ~2018-11-18 | XMS | Encounter Summary ---
Demographics + + + | Address | [address] [place] [address] St. 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 | [address] | | | | | seizures | [address] | [address] | | | | | ([facility]) | E[address]on [address]nel[address] | Mailcode: | | | | | Procedures | Rd | [facility] | | | | | CONSULT TO | [place], [place] | for Health | | | | | NEUROLOGY | [address] | and Healing, | | | | | | Phone: | Building 1, | | | | | | [phone] | 8th Floor | | | | | | Fax: | [place], [place] | | | | | | [phone] | [address] | | | | | | | Phone: | | | | | | | [phone] | | | | | | | Fax: | | | | | | | [phone] | +--------+--------+ + + + + Reason [...] + + | 12/09/ | Emergency | [facility] Emergency | Jesus Khan MD | | | 2017 | | Department [address] | [address] | | | | | [address] | [address] | | | | | [facility] | [place], [place] | | | | | [place], [place] | [address] | | | | | [address] | [phone] | | | | | [phone] | | | +--------+ + + + [...] MD - 12/09/2017During your visit in the [facility] ED, you had labs and a neurology evaluation. 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 They also want to see tee hatfield in the [facility] Neurology Epilepsy clinic (see contact information). We [...] | | 2019 | Visit | | [address] | | | | | | [place], [place] | | | | | | [address] | | | | | | [phone] | | | | | | | [...] KOTHARI | [address] | [place], [place] | | | ZULEMA POINT OF CARE | [address] | [address] | | | TESTS | | | [...] | + + + + + | [facility] | [address] | [place] [address] | | | SERVICES, CORE | NATASHA [...] [facility] | [address] | [place] [address] | | | SERVICES, CORE | NATASHA [...] | | | LABORATORY | | | SAMOAN | | | SERVICES, | | | [...] the MDRD equation recommended by the | [facility] | | National Kidney Disease Education Program. Estimated GFR | LABORATORY | | Interpretive Information: <60 mL/min/1.73 sq | [facility] | | m Chronic Kidney Disease <15 [...] | + + + + + | [facility] | [address] | [place] [address] | | | SERVICES, CORE | NATASHA [...] | [facility] | | | GRAVITY | [place] performed by | | LABORATORY | | [...] | + + + + + | [facility] | [address] | [place] [address] | | | SERVICES, [facility] | [address] | | | + + + + + ED INFORMATION EXCHANGE (12/09/2017 1:48 PM PDT) + + | Specimen | + + | | + + + + + | Narrative | Performed At | + + + | [id number] This patient has registered at the | [facility] Emergency Department For more | MEDICAL | | information visit: | TECHNOLOGIES | | [email or web address] | | | [email or web address] Security Events No [...] Chief Complaint Oct | | | 2017 [facility] [place] Emergency | | | Emergency 10,800. l side pain Dec 02, 2017 [facility] | | | 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 E.D. Visit Count (12 mo.) Facility Visits [place] | | | [facility] [address] [address] Total 2 | | | Note: Visits indicate total known visits. PDMP Report Rx | | | Details (6 Mo.) Fill Date Drug Description Qty. Prescriber CS MED | | | 2017-12-06 ZOLPIDEM TARTRATE 10 MG TABLET 30 MOSHE HUFFP 4 0 | | | 2017-11-29 LORAZEPAM 0.5 MG TABLET 10 VIRIDIANASARAH DARDEN, PATIENT SERVICE TECHNICIAN PST 4 0 | | | 2017-11-19 LORAZEPAM 0.5 MG TABLET 10 VIRIDIANA KATALINA, PATIENT SERVICE TECHNICIAN PST 4 0 | | | 2017-11-12 OXYCODONE HCL 10 MG TABLET 120 VIRIDIANA KATALINA, PATIENT SERVICE TECHNICIAN PST 0 | | | 2017-11-08 ZOLPIDEM TARTRATE 10 MG TABLET 30 VIRIDIANA KATALINA, PATIENT SERVICE TECHNICIAN PST 4 | | | 0 2017-10-11 OXYCODONE HCL 10 MG TABLET 120 VIRIDIANA KATALINA, | | | PATIENT SERVICE TECHNICIAN PST 0 2017-10-10 ZOLPIDEM TARTRATE 10 MG TABLET 30 VIRIDIANA | | | KATALINA, PATIENT SERVICE TECHNICIAN PST 4 0 2017-09-13 ZOLPIDEM TARTRATE 10 MG TABLET 30 | | | VIRIDIANADAX DARDEN, PATIENT SERVICE TECHNICIAN PST 4 0 2017-09-10 OXYCODONE HCL 10 MG TABLET 120 | | | VIRIDIANADAX DARDEN, PATIENT SERVICE TECHNICIAN PST 0 2017-08-16 ZOLPIDEM TARTRATE 10 MG TABLET | | | 30 VIRIDIANADAX DARDEN, PATIENT SERVICE TECHNICIAN PST 4 0 2017-08-12 OXYCODONE HCL 10 MG TABLET | | | 120 VIRIDIANADAX RODRIGUEZTT, PATIENT SERVICE TECHNICIAN PST 0 2017-07-17 ZOLPIDEM TARTRATE 10 MG | | | TABLET 30 VIRIDIANADAX DARDEN, PATIENT SERVICE TECHNICIAN PST 4 0 2017-07-12 OXYCODONE HCL 10 MG | | | TABLET 120 VIRIDIANA DARDEN, PATIENT SERVICE TECHNICIAN PST 0 2017-06-19 ZOLPIDEM TARTRATE | | | 10 MG TABLET 30 VIRIDIANA DARDEN, PATIENT SERVICE TECHNICIAN PST 4 0 2017-06-14 OXYCODONE HCL | | | 10 MG TABLET 120 VIRIDIANA DARDEN, PATIENT SERVICE TECHNICIAN PST 0 Rx Summary (12 Mo.) | | [...] for | | | additional information. 2018 [employer]. - | | | [place], [place] - [email or web address] | | + + + + + | Procedure Note | + + | Service Account, Rtf Results Inbound - 12/09/2017 1:50 PM PDT Formatting of this | | note might be different from the original.MELISSA?NOTIFICATION?12/09/2017 13:48?MARJORIE, | | ANIKET Barron? patient has registered at the [facility] | | [facility] For more information visit: | | [email or web address] Security | | EventsNo recent Security Events currently on fileED Care GuidelinesThere are currently | | no ED Care Guidelines in MELISSA for this patient. Please check your facility's medical | | records system.Recent Emergency Department Visit SummaryAdmit Date Facility City State | | Type Major Type Diagnoses or Chief Complaint Dec 09, 2017 [facility] | | [place] Emergency Emergency 10,800. l side pain Dec 02, [address] [facility] [address] | | [place] Emergency Emergency Chondrocostal junction syndrome [Tietze] | | Personal history of nicotine dependence Other porcelain enamel installer (current) drug therapy | | Hypertensive chronic kidney disease with stage 1 through stage 4 chronic kidney disease, | | or unspecified chronic kidney disease Chronic kidney disease, stage 1 Allergy | | status to penicillin Recent Inpatient Visit SummaryNo recorded inpatient visits. E.D. | | Visit Count (12 mo.)Facility Visits [facility] 1 [facility]. | | [facility] 1 Total 2 Note: Visits indicate total known visits. PDMP ReportRx | | Details (6 Mo.)Fill Date Drug Description Qty. Prescriber MED 2017-12-06 ZOLPIDEM | | TARTRATE 10 MG TABLET 30 KIMBERLY HUGHES JOURNEYMAN MECHANIC 4 0 2017-11-29 LORAZEPAM 0.5 MG TABLET 10 | | VIRIDIANA ELSALLIGOTT, PATIENT SERVICE TECHNICIAN PST 4 0 2017-11-19 LORAZEPAM 0.5 MG TABLET 10 VIRIDIANA MICHAELTT, PATIENT SERVICE TECHNICIAN PST 4 | | 0 2017-11-12 OXYCODONE HCL 10 MG TABLET 120 VIRIDIANA [facility], PATIENT SERVICE TECHNICIAN PST 0 2017-11-08 ZOLPIDEM | | TARTRATE 10 MG TABLET 30 VIRIDIANA ELSALLIGOTT, PATIENT SERVICE TECHNICIAN PST 4 0 2017-10-11 OXYCODONE HCL 10 MG | | TABLET 120 VIRIDIANA MCELLIGOTT, PATIENT SERVICE TECHNICIAN PST 0 2017-10-10 ZOLPIDEM TARTRATE 10 MG TABLET 30 VIRIDIANA | | MCELLIGOTT, PATIENT SERVICE TECHNICIAN PST 4 0 2017-09-13 ZOLPIDEM TARTRATE 10 MG TABLET 30 VIRIDIANA ELSALLIGOTT, PATIENT SERVICE TECHNICIAN PST 4 | | 0 2017-09-10 OXYCODONE HCL 10 MG TABLET 120 VIRIDIANA MCELLIGOTT, PATIENT SERVICE TECHNICIAN PST 0 2017-08-16 ZOLPIDEM | | TARTRATE 10 MG TABLET 30 VIRIDIANA MCELLIGOTT, PATIENT SERVICE TECHNICIAN PST 4 0 2017-08-12 OXYCODONE HCL 10 MG | | TABLET 120 VIRIDIANA MCELLIGOTT, PATIENT SERVICE TECHNICIAN PST 0 2017-07-17 ZOLPIDEM TARTRATE 10 MG TABLET 30 VIRIDIANA | | MCELLIGOTT, PATIENT SERVICE TECHNICIAN PST 4 0 2017-07-12 OXYCODONE HCL 10 MG TABLET 120 VIRIDIANA [facility], PATIENT SERVICE TECHNICIAN PST 0 | | 2017-06-19 ZOLPIDEM TARTRATE 10 MG TABLET 30 VIRIDIANA [facility], PATIENT SERVICE TECHNICIAN PST 4 0 2017-06-14 | | OXYCODONE HCL 10 MG TABLET 120 VIRIDIANA [facility], PATIENT SERVICE TECHNICIAN PST 0 Rx Summary (12 Mo.)Metric Count | [...] for | | additional information. ? [address] [facility], | | [place] - [email or web address] | |Rx Details (6 Mo.) | |Fill Date Drug Description Qty. Prescriber CS MED | |2017-12-06 ZOLPIDEM TARTRATE 10 MG TABLET 30 KIMBERLY HUGHES, JOURNEYMAN MECHANIC 4 0 | |2017-11-29 LORAZEPAM 0.5 MG TABLET 10 VIRIDIANA [facility], PATIENT SERVICE TECHNICIAN PST 4 0 | |2017-11-19 LORAZEPAM 0.5 MG TABLET 10 VIRIDIANA [facility], PATIENT SERVICE TECHNICIAN PST 4 0 | |2017-11-12 OXYCODONE HCL 10 MG TABLET 120 VIRIDIANA [facility], PATIENT SERVICE TECHNICIAN PST 0 | |2017-11-08 ZOLPIDEM TARTRATE 10 MG TABLET 30 VIRIDIANA [facility], PATIENT SERVICE TECHNICIAN PST 4 0 | |2017-10-11 OXYCODONE HCL 10 MG TABLET 120 VIRIDIANA [facility], PATIENT SERVICE TECHNICIAN PST 0 | |2017-10-10 ZOLPIDEM TARTRATE 10 MG TABLET 30 [facility]IDIANA [facility], PATIENT SERVICE TECHNICIAN PST 4 0 | |2017-09-13 ZOLPIDEM TARTRATE 10 MG TABLET 30 VIRIDIANA [facility], PATIENT SERVICE TECHNICIAN PST 4 0 | |2017-09-10 OXYCODONE HCL 10 MG TABLET 120 [facility], PATIENT SERVICE TECHNICIAN PST 0 | |2017-08-16 ZOLPIDEM TARTRATE 10 MG TABLET 30 VIRIDIANA DARDEN, PATIENT SERVICE TECHNICIAN PST 4 0 | |2017-08-12 OXYCODONE HCL 10 MG TABLET 120 VIRIDIANA RODRIGUEZTT, PATIENT SERVICE TECHNICIAN PST 0 | |2017-07-17 ZOLPIDEM TARTRATE 10 MG TABLET 30 VIRIDIANADAX RODRIGUEZTT, PATIENT SERVICE TECHNICIAN PST 4 0 | |2017-07-12 OXYCODONE HCL 10 MG TABLET 120 VIRIDIANA RODRIGUEZTT, PATIENT SERVICE TECHNICIAN PST 0 | |2017-06-19 ZOLPIDEM TARTRATE 10 MG TABLET 30 VIRIDIANA RODRIGUEZTT, PATIENT SERVICE TECHNICIAN PST 4 0 | |2017-06-14 OXYCODONE HCL 10 MG TABLET 120 VIRIDIANA RODRIGUEZTT, PATIENT SERVICE TECHNICIAN PST 0 | | | |Rx Summary (12 [...] facilities for additional information. | |? 2018 [employer]. - [place], [place] - [email or web address] | + + + + + + + | Performing | Address | City/State/Zipcode | Phone Number | | Organization | | | | + + + + + | [facility] | [address], | [place], [place] | [phone] | | TECHNOLOGIES | [address] | [address] | | + + + + + [...]
--- OUTSIDE RECORDS SUMMARY | ~2018-11-18 | XMS | Encounter Summary ---
Demographics + + + | Address | [address] [place] [address] St. | | | [place] [address] | + + + | Home Phone [...] Team Providers + +------+ + | Care Structural Architect Name | Role | Phone | + +------+ + | Melvina TalleyP | PCP | | + +------+ + Encounter Details +--------+ + + + + | Date | Type | Department | Care Team | Description | +--------+ + + + + | 04/11/ | Inside | Endoscopic | Gloria, | | | 2017 | Referral | Procedural Unit at | Lucy Ohara PA-C | | | | Order | [facility] | [address] | | | | | [address] | [place], [place] | | | | | Mailcode: OC2L | [address] | | | | | [facility] | [phone] | | | | | and Imelda, | | | | | | [address] | | | | | | [place], [place] | | | | | | [address] | | | | | | [phone] | | | +--------+ + + + [...] | | 2019 | Visit | | [address] | | | | | | [place], [place] | | | | | | [address] | | | | | | [phone] | | | | | | | | +--------+---------+ + + + documented as of this encounter Results EGD (04/19/2016 10:56 AM PST) + + | Specimen | + + | | + + + + + | Narrative | Performed At | + + + | MRN: | [facility] | | [id number] Date: 04/19/2016Patient Name: Order #: [id number] | ENDOSCOPY | | of : 1980CSN: [id number]: [facility] | | | 3Procedure: Upper GI | | | endoscopyIndications: Heartburn, Globus | | | sensationProviders: KAYLEEN MCCORMICK MD (Doctor), | | | KARTIK STACY RN (Nurse), | | | CLAUDIA CARTER, Resaw Tailer (Resaw Tailer)Referring | | | MD: ANGEL HAQ-CRequesting Provider: [...] The [employer] | | | [id number] Endoscope #[id number] was introduced | | | through the [...] - Recommend acid | | | suppression medication.KAYLEEN MCCORMCIK MD04/19/2016 11:32:42 AMNumber of | | | Addenda: 0Note Initiated On: 04/19/2016 10:56 AM | | + + + + +---------+ + + | Performing | Address | City/State/Rustcode | Phone Number | | Organization | | | | + +---------+ + + | [facility] | | | | + +---------+ + + documented in this encounter Visit Diagnoses + + | Diagnosis | + + | Gastroesophageal reflux disease, esophagitis presence not specified - Primary | + + documented in this encounter"
--- OUTSIDE RECORDS SUMMARY | ~2018-11-18 | XMS | Clinical Summary ---
Demographics + + + | Address | [address] | | | [place] [address] | + + + | Home Phone | | + + + | Preferred Language | Unknown | + + + | Marital Status | | + + + | Taoism Affiliation | Unknown | + + + | Race | Unknown | + + + | Ethnic Group | Unknown | + + + Author + + + | Author | [employer] (Historical as of | | | 10-04-18) | + + + | Organization | [facility] [employer] (Historical as of | | | 10-04-18) [...] Team Providers + +------+ + | Care Remote Sensing Specialist Name | Role | Phone | + +------+ + | Melvina Talley LINE LOCATOR | PP | | + +------+ + [...] +------+-------+ + | MEDICAID | [place] | [id number] | | | [address] | | | [place] | | | | [place] | | | [place] | | | | [address] | | | OUT AND OUT CIGAR MAKER HAND | | | | | + +--------+ [...] | | | paramjit | | | [phone] | [address] | + +--------+ +--------+ + +
--- OUTSIDE RECORDS SUMMARY | ~2018-11-18 | XMS | Encounter Summary ---
Demographics + + + | Address | [address] [place] [address] St. | | | [place] [address] | + + + | Home Phone [...] Team Providers + +------+ + | Care Tuberculosis Specialist Name | Role | Phone | [...] [address] | | | | | [address] | [place], [place] | | | | | Cec[address] Christopher Mailcode: | [address] | | | | | [address] Outpatient | [phone] | | | | | Clinic Building | | | | | | [place], [place] | | | | | | [address] | | | | | | [phone] | | | +--------+ + + + [...] | | 2018 | Visit | | [address] | | | | | | [place], [place] | | | | | | [address] | | | | | | [phone] | | | | | | | | +--------+---------+ + + + documented as of this encounter Procedures + +--------+ + + + | Procedure Name | Priori | Date/Time | Associated Diagnosis | Comments | | | ty | | | | + +--------+ + + + | MRI BRAIN, 3 SEQ, | Routin | 02/02/1998 | | Results for this | | | e | 7:26 PM | | procedure are in the | | | | PST | | results section. | + +--------+ + + + documented in this encounter Results MRI BRAIN, 3 SEQ, (02/02/1998 7:26 PM PST) + + + + + + | Component | Value | Ref Range | Performed | Pathologist | | | | | At | Signature | + + + + + + | MRI BRAIN, | Radiologist 1: DEWAYNE, | | | | | 3 SEQ, [facility] | ABELARDO Ramey, | | | | | | M.D.-Radiologist 2: | | | | | | CLARA HASTINGS, | | | | | | M.D.MAGNETIC RESONANCE | | | | | | [...] + + | Performing | Address | City/State/[facility] | Phone Number | | Organization | | | | + +---------+ + + | [facility] DEPARTMENT OF | | | | | RADIOLOGY | | | | + +---------+ + + documented in this encounter Visit Diagnoses Not on filedocumented in this encounter"
--- OUTSIDE RECORDS SUMMARY | ~2018-11-18 | XMS | Encounter Summary ---
Demographics + + + | Address | [address] [place] [address] St. | | | [place] [address] | + + + | Home Phone [...] Providers + +------+ + | Care Marble Rubber Name | Role | Phone | + [...] + + | 03/01/ | Surgery | [facility] INTRA OP | Haroon Biggs, | BILATERAL MAXILLARY | | 2015 | | [facility] for [facility] | ,MPH | ANTROSTOMY, | | | | and Healing Surgery | | BILATERAL ANTERIOR | | | | Center Admitting | | ETHMOIDECTOMY, | | | | Desk Located on the | | REVISION | | | | 4th floor [address] | | SEPTOPLASTY, | | | | [address] [place], | | BILATERAL TURBINATE | | | | [place] [address] | | OUTFRACTURE | +--------+---------+ + + [...] | | 2019 | Visit | | [address] | | | | | | [place], [place] | | | | | | [address] | | | | | | [phone] | | | | | | | [...] | + + + + + | [facility] | [address] | [place] [address] | | | PATHOLOGY | [address] [...]
--- OUTSIDE RECORDS SUMMARY | ~2018-11-18 | XMS | Encounter Summary ---
Demographics + + + | Address | [address] [place] [address] St. | | | [place] [address] | + + + | Home Phone [...] Team Providers + +------+ + | Care Accounts Payable Coordinator Name | Role | Phone | + +------+ + | Melvina Talley | PCP | | + +------+ + Encounter Details +--------+ + + + + | Date | Type | Department | Care Team | Description | +--------+ + + + + | 03/26/ | Hospital | Diagnostic Imaging | Gloria, | | | 2017 | Encounter | Services at [facility] | Lucy Ohara PA-C | | | | | [address] | [address] | | | | | [address] Mailcode: | [place], [place] | | | | | [address] [facility] | [address] | | | | | [place], [place] | [phone] | | | | | [address] | | | | | | [phone] | | | +--------+ + + + [...] | | | | | | [place], [place] | | | | | | [address] | | | | | | [phone] | | | | | | | [...] Note | + + | Service Account, Flytenow In Interface - 03/26/2016 12:03 PM [facility] EXAM: Double | | contrast esophagramHISTORY: DysphagiaCOMPARISONS: [...] Note | + + | Service Account, [employer] Res In Interface - 03/26/2016 11:54 AM [...]
--- OUTSIDE RECORDS SUMMARY | ~2018-11-18 | XMS | Encounter Summary ---
Demographics + + + | Address | [address] [place] [address] St. 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 Haroon Biggs M.D., M.P.H. Fellow, [facility] Instructor, Rhinology and Sinus Surgery Department of Otolaryngology/Head and Neck Surgery [email or web address] documented in this encounter Plan of Treatment +--------+---------+ + + + | Date | Type | Specialty | Care Team | Description | +--------+---------+ + + + | 12/08/ | Office | Neurology | Keon Gerber A, | | | 2019 | Visit | | [address] | | | | | | [place], [place] | | | | | | [address] | | | | | | [phone] | | | | | | | | +--------+---------+ + + + documented as of this encounter Procedures + +--------+ + + + | Procedure Name | Priori | Date/Time | Associated Diagnosis | Comments | | | ty | | | | + +--------+ + + + | AL NASAL | Routin | 04/07/2015 | Chronic [...]
--- OUTSIDE RECORDS SUMMARY | ~2018-11-18 | XMS | Encounter Summary ---
Demographics + + + | Address | [address] [place] [address] St. | | | [place] [address] | + + + | Home Phone [...] Team Providers + +------+ + | Care Hotel Supplies Salesperson Name | Role | Phone | + [...] + + | 04/19/ | Hospital | [facility] GI PROCEDURE | Guzman Mccormick, | | | 2017 | Encounter | [address] | | | | | | Vijaya Mailcode: [facility] | | | | | | [facility] | | | | | | Health and Healing, | | | | | | [address] | | | | | | [place], [place] | | | | | | [address] | | | | | | [phone] | | | +--------+ + + + [...] Discharge Instructions Instructions Kartik Blackburn RN - 04/19/2016[facility] Instructions after EGD (Upper Endoscopy ) [...] hours or on weekends and holiday Hospital Microfilm Machine Operator toll free [phone] and have the GI doctor destination imagination coordinator paged. The provider who performed your procedure [...] m the original. PRE PROCEDURE NOTE: MR# [id number] Subjective: Aniket Kendall is a 35 y.o. [...] | | 2018 | Visit | | [address] | | | | | | [place], [place] | | | | | | [address] | | | | | | [phone] | | | | | | | [...] + | MRN: | [facility] | | [id number] Date: 04/19/2016Patient Name: Order #: [id number] | ENDOSCOPY | | of : 1980CSN: [id number]: [facility] | | | 3Procedure: Upper GI | | | endoscopyIndications: Heartburn, Globus | | | sensationProviders: GUZMAN MCCORMICK MD (Doctor), | | | KARTIK BLACKBURN RN (Nurse), | | | CLAUDIA CARTER, Specifications Writer (Specifications Writer)Referring | | | MD: ANGEL HAQ-CRequesting Provider: [...] The Olymp[employer] | | | GIF-[id number] Endoscope #[id number] was introduced | | | through the [...] | esophageal mucosal changes suspicious for short-segment Fiugeroa's | | | esophagus. These changes involved [...] + + | Performing | Address | City/State/[facility] Mex[facility]ode | Phone Number | | Organization | [...] | + + + + + | [facility] | [address] | [place] [address] | | | PATHOLOGY | [address] [...]
--- OUTSIDE RECORDS SUMMARY | ~2018-11-18 | XMS | Encounter Summary ---
Demographics + + + | Address | [address] [place] [address] St. | | | CAR[place] MARCUM [address] | + + + | Home Phone [...] Team Providers + +------+ + | Care Cement Kiln Operator Name | Role | Phone | [...] | | | | CONSULT TO | [place], [place] | [address] | | | | | ENT SPEECH | [address] | Physician's | | | | | THERAPY | Phone: | Pavilion | | | | | | [phone] | [place], [place] | | | | | | Fax: | [address] | | | | | | [phone] | Phone: | | | | | | | [phone] | | | | | | | Fax: | | | | | | | [phone] | +--------+--------+ + + + + Encounter Details +--------+ + + + + | Date | Type | Department | Care Team | Description | +--------+ + + + + | 02/15/ | Customer Acquisition Manager | Otolaryngology | Zochowski, | Dysphagia, | | 2015 | | Laryngology Services | Lucy Ohara PA-C | unspecified type | | | | at [facility] [address] | [address] | (Primary Dx) | | | | [address] [place], | [facility] 2[facility] [place] | | | | | [place] [address] | [address] | | | | | [phone] | [phone] | | | | | | | [...] | | 2019 | Visit | | [address] | | | | | | [place], [place] | | | | | | [address] | | | | | | [phone] | | | | | | | [...] Note | + + | Service Account, [employer] In Interface - 03/26/2016 11:54 AM PST [...]
--- OUTSIDE RECORDS SUMMARY | ~2018-11-18 | XMS | Encounter Summary ---
Demographics + + + | Address | [address] [place] [address] St. | | | [place] MARCUM [address] | + + + | Home Phone [...] Team Providers + +------+ + | Care Hardening Machine Operator Name | Role | Phone | + +------+ + | Melvina Talley | PCP | | + +------+ + Encounter Details +--------+ + + + + | Date | Type | Department | Care Team | Description | +--------+ + + + + | 08/05/ | Document-Sc | UNKNOWN DEPARTMENT | Unknown . | | | 2015 | anned | [address] [facility] | | | | | | [address] | | | | | | [place], [place] | | | | | | [address] | | | +--------+ + + + [...] | | 2019 | Visit | | [address] | | | | | | [place], [place] | | | | | | [address] | | | | | | [phone] | | | | | | | [...]
--- OUTSIDE RECORDS SUMMARY | ~2018-11-18 | XMS | Encounter Summary ---
Demographics + + + | Address | [address] [place] [address] St. | | | [place] MARUCM [address] | + + + | Home Phone | | + + + | Preferred Language | Unknown | + + + | Marital Status | | + + + | Zoroastrianism Affiliation | NON | + + + [...] Providers + +------+ + | Care Patient Scheduling Coordinator Name | Role | Phone | [...] (BMI | DAVEY Latham | [address] [facility] | | | | | 30-39.9) | [address] [facility] | [place] | | | | | Essential | [address] [place] | Mailcode: | | | | | hypertension | Rd | [address] | | | | | Procedures | [place], [place] | [place], [place] | | | | | SPLIT | [address] | [address] | | | | | NIGHT PSG | Phone: | Phone: | | | | | ID | [phone] | [phone] | | | | | POLYSOMNOGRA | Fax: | Fax: | | | | | PHY W/CPAP | [phone] | [phone] | +--------+--------+ + + + + Reason [...] | 30-39.9) | [address] | [place] | | | | | Essential | [facility] | Mailcode: | | | | | hypertension | Rd | [address] | | | | | Procedures | [place], [place] | [place], [place] | | | | | SPLIT | [address] | [address] | | | | | NIGHT PSG | Phone: | Phone: | | | | | ID | [phone] | [phone] | | | | | POLYSOMNOGRA | Fax: | Fax: | | | | | PHY W/CPAP | [phone] | [phone] | +--------+--------+ + + + + Encounter Details +--------+ + + + + | Date | Type | Department | Care Team | Description | +--------+ + + + + | 05/30/ | Diagnostic | Sleep Disorder | Mera Ma MD | Full sleep study | | 2017 | Visit | [facility] | [address] | | | | | [address] | [facility], | | | | | [place] Mailcode: | [place] [address] | | | | | [address] [place], [place] | [phone] | | | | | [address] | | | | | | [phone] | | | +--------+ + + + [...] - did not meet criteria. Diagnostic PSG [74092/[id number]] sleep study performed.Electronically s igned by Benson [...] polysomnographic study (PSG) was performed at the [facility] Sleep Laboratory accord ing to the standard protocol as described by the [place] [employer]: EEG: Gold cup [...] via ceiling mounted IR sensitive camera, IR beauty school instructor and wall mounted microph one. Scoring Methodology: This study was scored using the [place] [employer] guidelines for periodic [...] 0.0/hr). Mera Ma MD Sleep Disorders Program [facility] Electronically signed by Mera Ma MD on June 04, 2016 at 11:24:59 AM Gallo Garcia - 05/31/19 8:00 PM PDT [facility] Sleep Disorders Testing Sleep Disorders Program Polysomnography Report [address], [address] [place] [address] / Patient: Aniket Kendall Study Type: PSG : 1980 Patient Details: Female, 35 years, Height 5' 3", Weight 193 lbs, BMI 34.18 CSN: [id number] Recording Details: Recorded at 10:46:09 PM on 05/30/2016 Physician: Mera Ma MD for 435 minutes. Ref. Physician: Lucy Castro Scoring Details: Last scored by ROSIE Summers [facility] Counselor: ROSIE Leigh on 06/01/2016 at 3:24:11 PM. [...] | | 2018 | Visit | | [address] | | | | | | [facility] [place] | | | | | | [address] | | | | | | [phone] | | | | | | | | +--------+---------+ + + + documented as of this encounter Procedures + +--------+ + + + | Procedure Name | Priori | Date/Time | Associated Diagnosis | Comments | | | ty | | | | + +--------+ + + + | ID POLYSOMNOGRAPHY, | Routin | 06/04/2016 | Snoring [...] | + +--------+ + + + | ID POLYSOMNOGRAPHY,4 | Routin | 05/31/2016 | Snoring [...] | | + +---------+ + + | [facility] | | | | | SLEEP STUDIES | | | | + +---------+ + + | [facility] | | [place], [place] | | | SLEEP STUDIES | | [...]
--- OUTSIDE RECORDS SUMMARY | ~2018-11-18 | XMS | Encounter Summary ---
Demographics + + + | Address | [address] [place] [address] St. | | | [place] MARCUM [address] | + + + | Home Phone [...] Team Providers + +------+ + | Care Casey Saw Operator Name | Role | Phone | + +------+ + | Melvina TalleyP | PCP | | + +------+ + Encounter Details +--------+ + + + + | Date | Type | Department | Care Team | Description | +--------+ + + + + | 06/11/ | Filler Shaker | Otolaryngology | Gloria, | Odynophagia (Primary | | 2016 | | Laryngology Services | Lucy E, PA-C | Dx) | | | | at [address] | [address] | | | | | [address] [place], | [place], [place] | | | | | [place] [address] | [address] | | | | | [phone] | [phone] | | | | | | | [...] | | 2018 | Visit | | [address] | | | | | | [place], [place] | | | | | | [address] | | | | | | [phone] | | | | | | | | +--------+---------+ + + + documented as of this encounter Visit Diagnoses + + | Diagnosis | + + | Odynophagia - Primary Dysphagia, unspecified | + + documented in this encounter"
--- OUTSIDE RECORDS SUMMARY | ~2018-11-18 | XMS | Encounter Summary ---
Demographics + + + | Address | [address] [place] [address] St. | | | [place] [address] | + + + | Home Phone | | + + + | Preferred Language | Unknown | + + + | Marital Status | | + + + | Taoism Affiliation | NON | + + + [...] Providers + +------+ + | Care Manager Company Name | Role | Phone | + [...] sleep apnea | E, [facility] | [address] | | | | | (adult) | [address] | [address] | | | | | (pediatric) | Ave | [address] | | | | | Essential | [place], [place] | Rd [place], | | | | | (primary) | [address] | [place] | | | | | hypertension | Phone: | [address] | | | | | Procedures | [phone] | Phone: | | | | | CONSULT TO | Fax: | [phone] | | | | | ADULT SLEEP | [phone] | Fax: | | | | | MEDICINE | | [phone] | | | | | [place] NEW | | | | | | | PATIENT | | | | | | | LEVEL V [place] | | | | | | | [...] | 2017 | Visit | [facility] [place] | Francesco Latham PA-C | hypertension | | | | [facility] | [address] | (Primary Dx); MOISÉS | | | | [address] | [address] [place], | (obstructive sleep | | | | [address] Mailcode: | [place] [address] | apnea); Obesity (BMI | | | | [address] [place] | [phone] | 30-39.9) | | | | [facility] [place] | | | | | | [address] [place], [place] | | | | | | [address] | | | | | | [phone] | | | +--------+---------+ + + + [...] supplies, checkup on your order by calling [employer] [address] [facility] #A Kelvin PEÑA Ph. [phone] . Please bring all CPAP equipment to [...] [address] [place] [address] No relevant phone numbers on file. Insurance Information Payor: [employer] / Plan: [employer] [place] / Product Type: Medic aid / F/O Payor-Plan/Addr Policy # Cert # Phone # 1 [employer]ICA[employer] - [employer] E* [id number] [phone] [address] [address] Sub Name: ANIKET LIEBERMAN Rel to Pt: Self Diagnosis: Obstructive Sleep Apnea (ICD-10: G47.33) Length of need: Lifetime (99 mo) 1. Provide new machine with settings Auto-CPAP set to pressure Minimum = 5 and Maximum = 15 cm H2O with heated humidification [E0562] and wireless modem[A9279]; assign [facility] Sleep Pro gram as patient s [...] Consult: 06/27/16 Referring Provider: Lucy Castro PA-C [address] [place] [address] Primary Care Provider: TAMEKA Mistry [facility] [address] [facility] [address] [facility] [address] Assessment: Aniket Lieberman is a 35 y.o. [...] of water. -Orders sent to DME in [place] (lives in [place], [place]) -Discussed 90d compliance window during which [...] Lunesta, Belsomra. She scores 5/24 on the [place] Sleepiness Scale. She states that her weight [...] Francesco Romano PA-C SLEEP DISORDER MEDICINE AT [facility] [address] [place] [address] Mailcode: [address] [place] [address] documented in this encounter Plan of Treatment +--------+---------+ + + + | Date | Type | Specialty | Care Team | Description | +--------+---------+ + + + | 12/08/ | Office | Neurology | Keon Gerber, | | | 2018 | Visit | | [address] | | | | | | [place], [place] | | | | | | [address] | | | | | | [phone] | | | | | | | [...]
--- OUTSIDE RECORDS SUMMARY | ~2018-11-18 | XMS | Encounter Summary ---
Demographics + + + | Address | [address] [place] [address] St. | | | [place] MARCUM [address] | + + + | Home Phone [...] + + + | Author | [facility] | + + + | Organization | [facility] | + + + | [...] Team Providers + +------+ + | Care Career Development Associate Name | Role | Phone | + [...] | | | | | | | [facility] [place] | | | | | | | [address] | +--------+--------+ + + + + Encounter Details +--------+---------+ + + + | Date | Type | Department | Care Team | Description | +--------+---------+ + + + | 03/17/ | Office | [place] [facility] | Haroon Biggs, | Chronic ethmoidal | | 2016 | Visit | Center at [facility] [address] | MD,MPH | sinusitis (Primary | | | | [address] | | Dx); Chronic | | | | Mailcode: 5E | | maxillary sinusitis; | | | | [place] for [facility] | | Deviated nasal | | | | and Healing, | | septum | | | | Building 1, 5th | | | | | | Floor [place], [place] | | | | | | [address] | | | | | | [phone] | | | +--------+---------+ + + + [...] Biggs MD,MPH - 03/17/2015 8:02 AM PST [facility] HISTORY: Aniket Kendall is a [...] Surgery Department of Otolaryngology/Head and Neck Surgery [email or web address] documented in this encounter Plan of Treatment +--------+---------+ + + + | Date | Type | Specialty | Care Team | Description | +--------+---------+ + + + | 12/08/ | Office | Neurology | Keon Gerber A, | | | 2018 | Visit | | [address] | | | | | | [place], [place] | | | | | | [address] | | | | | | [phone] | | | | | | | | +--------+---------+ + + + documented as of this encounter Procedures + +--------+ + + + | Procedure Name | Priori | Date/Time | Associated Diagnosis | Comments | | | ty | | | | + +--------+ + + + | ND NASAL | Routin | 03/17/2015 | Chronic [...]
--- OUTSIDE RECORDS SUMMARY | ~2018-11-18 | XMS | Encounter Summary ---
Demographics + + + | Address | [address] [place] [address] St. | | | [place]ARCUM [address] | + + + | Home Phone [...] Team Providers + +------+ + | Care Supervising Appraiser Name | Role | Phone | + [...] | | | | | Gastro-esoph | [address] | and Healing, | | | | | ageal reflux | Phone: | Building 1, | | | | | disease | [phone] | 15th Floor | | | | | without | Fax: | [place], [place] | | | | | esophagitis | [phone] | [address] | | | | | Other | | Phone: | | | | | diseases of | | [phone] | | | | | larynx | | Fax: | | | | | Other | | [phone] | | | | | somatoform | [...] Visit | Center for [facility] and | [facility] [address] | | | | | Swallowing at [facility] | [address] | | | | | [address] | [facility] [place] | | | | | Mailcode: CH15E | [address] | | | | | [facility] | | | | | | and Healing, | | | | | | Building | | | | | | Floor [place], [place] | | | | | | [address] | | | | | | [phone] | | | +--------+ + + + [...] of this encounter Progress Notes Marj Martinez, [facility] - 08/16/2016 1:00 PM PDT VOICE THERAPY PROGRESS NOTE CLINIC: [facility] CLINIC DATE: 08/16/16 REFERRING PHYSICIAN: TAMEKA Osborn PRIMARY DIAGNOSIS: 1. Dysphonia 2. Laryngeal hyperfunction 3. Globus sensation TREATMENT DIAGNOSIS: 1. Dysphonia 2. Laryngeal hyperfunction 3. Globus sensation DATE OF ONSET: 02/16/16 START OF CARE: 03/26/16 NUMBER OF SESSIONS: 2 DURATION OF SESSION: 60 min. SUBJECTIVE: Aniket Kendall returns to the [facility] for initiation of [...] is in town for 2 days from [place], [place]. She will return for one additio nal session of voice therapy tomorrow afternoon. Homework was provided. Marj Martinez MS, CCC-PHOTOENGRAVER Speech-Language Pathologist [facility] Department of Otolaryngology/ Head and Neck Surgery Appointments: [phone] documented in thi s encounter Plan of Treatment +--------+---------+ + + + | Date | Type | Specialty | Care Team | Description | +--------+---------+ + + + | 12/08/ | Office | Neurology | Keon Gerber, | | | 2018 | Visit | | [address] | | | | | | [facility] [place] | | | | | | [address] | | | | | | [phone] | | | | | | | | +--------+---------+ + + + documented as of this encounter Procedures + +--------+ + + + | Procedure Name | Priori | Date/Time | Associated Diagnosis | Comments | | | ty | | | | + +--------+ + + + | MN SPEECH/HEARING | Routin | 08/16/2016 | Dysphonia [...]
--- OUTSIDE RECORDS SUMMARY | ~2018-11-18 | XMS | Encounter Summary ---
Demographics + + + | Address | [address] [place] [address] St. | | | [place] MARCUM [address] | + + + | Home Phone | | + + + | Preferred Language | Unknown | + + + | Marital Status | | + + + | Spiritism Affiliation | NON | + + + | Race | White | + + + | Ethnic Group | Not or | + + + Author + + + | Author | [facility] | + + + | Organization | [facility] | + + + | Address [...] Team Providers + +------+ + | Care Mirror Department Supervisor Name | Role | Phone | [...] [address] | | | | | | [address] [place], [place] | | | | | | [address] | | | | | | [phone] | | | +--------+ + + + [...] [address] | | | | | | [place] | | | | | | [address] | | | | | | [phone] | | | | | | | | +--------+---------+ + + + documented as of this encounter Visit Diagnoses Not on filedocumented in this encounter"
--- OUTSIDE RECORDS SUMMARY | ~2018-11-18 | XMS | Encounter Summary ---
Demographics + + + | Address | [address] [place] [address] St. | | | [place] MARCUM [address] | + + + | Home Phone [...] Team Providers + +------+ + | Care Tin Assorter Name | Role | Phone | + [...] PA-C | | | | | at [facility] [address] | [address] | | | | | [address], | [place], [place] | | | | | [place] [address] | [address] | | | | | [phone] | [phone] | | | | | | | [...] [address] | | | | | | [place], [place] | | | | | | [address] | | | | | | [phone] | | | | | | | | +--------+---------+ + + + documented as of this encounter Visit Diagnoses Not on filedocumented in this encounter"
--- OUTSIDE RECORDS SUMMARY | ~2018-11-18 | XMS | Encounter Summary ---
Demographics + + + | Address | [address] [place] [address] St. | | | [place] MARC[place] [address] | + + + | Home Phone [...] Providers + +------+ + | Care Credit Risk Analyst Name | Role | Phone | + +------+ + | Melvina TalleyP | PCP | | + +------+ + Encounter Details +--------+ + + + + | Date | Type | Department | Care Team | Description | +--------+ + + + + | 05/23/ | MyChart | [facility] | Agustin Skelton | New problem | | 2016 | Encounter | Center at [facility] [address] | MD Ney | | | | | [address] | | | | | | Mailcode: JAIME | | | | | | [facility] | | | | | | and Healing, | | | | | | Building , | | | | | | Floor [place], [place] | | | | | | [address] | | | | | | [phone] | | | +--------+ + + + [...] | | 2019 | Visit | | [address] | | | | | | [place], [place] | | | | | | [address] | | | | | | [phone] | | | | | | | | +--------+---------+ + + + documented as of this encounter Visit Diagnoses Not on filedocumented in this encounter"
--- OUTSIDE RECORDS SUMMARY | ~2018-11-18 | XMS | Encounter Summary ---
Demographics + + + | Address | [address] [place] [address] St. | | | [place] MARCUM [address] | + + + | Home Phone | | + + + | Preferred Language | Unknown | + + + | Marital Status | | + + + | Confucianism Affiliation | NON | + + + | Race | White | + + + | Ethnic Group | Not or | + + + Author + + + | Author | [facility] | + + + | Organization | [facility] | + + + | Address [...] Team Providers + +------+ + | Care Lime Filter Operator Name | Role | Phone | [...] [address] | | | | | [address] | [place], [place] | | | | | [address] Mailcode: | [address] | | | | | [address] Outpatient | [phone] | | | | | Clinic Building | | | | | | [place], [place] | | | | | | [address] | | | | | | [phone] | | | +--------+ + + + [...] | | 2018 | Visit | | [address] | | | | | | [place], [place] | | | | | | [address] | | | | | | [phone] | | | | | | | [...] + + | Performing | Address | City[facility]State[facility] | Phone Number | | Organization | | | | + +---------+ + + | [facility] DEPARTMENT OF | | | | | RADIOLOGY | | | | + +---------+ + + documented in this encounter Visit Diagnoses Not on filedocumented in this encounter"
--- OUTSIDE RECORDS SUMMARY | ~2018-11-18 | XMS | Encounter Summary ---
Demographics + + + | Address | [address] [place] [address] St. | | | [place] MARCUM [address] | + + + | Home Phone [...] Team Providers + +------+ + | Care Coremaker Bench Name | Role | Phone | + [...] | | | | | | | [place], [place] | | | | | | | [address] | +--------+--------+ + + + + Encounter Details +--------+---------+ + + + | Date | Type | Department | Care Team | Description | +--------+---------+ + + + | 07/26/ | Office | [place] [facility] | Carmelita Craig, | Chronic ethmoidal | | 2015 | Visit | Center at [facility] [address] | PA-C [address] | sinusitis (Primary | | | | [address] | Ave [place], [place] | Dx); Chronic | | | | Mailcode: CH5E | [address] | maxillary sinusitis | | | | Center for [facility] | [phone] | | | | | and Healing, | | | | | | Building [address], | | | | | | [place], [place] | | | | | | [address] | | | | | | [phone] | | | +--------+---------+ + + + [...] Craig PA-C - 07/27/2015 1:33 PM PDT [facility] HPI: Aniket Kendall is a 35 y.o. female who presents to the [facility] for fol low up of Chronic rhinosinusitis and S/P Sinus Surgery. She is s/p sinus surgery (03/01/2015) with Dr. Biggs. Last seen 04/07/2015. Current symptoms include nasal congestion, headache, fa cial pressure, globus and foul odor in her nose. She describes some dysphagia and feels maodnna t food occasionally gets stuck in the [...] in nose two times daily. Mix with [employer] sinus irrigati ons. Irrigate BID. Sent to [facility] cyclobenzaprine 10 mg oral tablet Take [...] [address] | | | | | | [place], [place] | | | | | | [address] | | | | | | [phone] | | | | | | | | +--------+---------+ + + + documented as of this encounter Procedures + +--------+ + + + | Procedure Name | Priori | Date/Time | Associated Diagnosis | Comments | | | ty | | | | + +--------+ + + + | MA NASAL | Routin | 07/27/2015 | Chronic [...]
--- OUTSIDE RECORDS SUMMARY | ~2018-11-18 | XMS | Encounter Summary ---
Demographics + + + | Address | [address] [place] [address] St. | | | [place] [address] | + + + | Home Phone [...] Team Providers + +------+ + | Care Shuttle Buggy Operator Name | Role | Phone | [...] | | | | CONSULT TO | [place], [place] | PV01 | | | | | ENT SPEECH | [address] | Physician's | | | | | THERAPY | Phone: | Pavilion | | | | | | [phone] | [place], [place] | | | | | | Fax: | [address] | | | | | | [phone] | Phone: | | | | | | | [phone] | | | | | | | Fax: | | | | | | | [phone] | +--------+--------+ + + + + Encounter Details +--------+---------+ + + + | Date | Type | Department | Care Team | Description | +--------+---------+ + + + | 03/26/ | Office | Otolaryngology [facility] | Latha Vasquez | Dysphagia, | | 2017 | Visit | [facility] | | unspecified type | | | | Swallowing at [facility] | | (Primary Dx); | | | | [address] | | Laryngeal | | | | Mailcode: CH15E | | hyperfunction; | | | | [place] for [facility] | | Dysphonia; Globus | | | | and Healing, | | sensation | | | | Building | | | | | | Floor [place], [place] | | | | | | [address] | | | | | | [phone] | | | +--------+---------+ + + + [...] Vasquez - 03/26/2016 1:00 PM PST Clinic: [facility] for [facility] Sw[facility]ing Referring Physician: TAMEKA Yin [facility] [address] [facility] [address] [place] [address] PCP: TAMEKA Mistry Medical Diagnosis: 1. Dysphagia, [...] REFERRAL: Aniket Kendall was referred to the [facility] for Voice and Swallowing by Dr. [...] with Cathleen Castro PA-C. Please refer to nm s report for details regarding the medical [...] with it if it is covered by Tots[employer] kianna. Latha Vasquez MA, CF-JUNIOR LOAN PROCESSOR Speech-Language Pathology Fellow [facility] Dept. of Otolaryngology, [place] [address] [place] [address] Pager: [phone] signed by Latha Vasquze at 04/01/2016 5:12 PM PSTdocumented in this encounter Plan of Treatment +--------+---------+ + + + | Date | Type | Specialty | Care Team | Description | +--------+---------+ + + + | 12/08/ | Office | Neurology | Keon Gerber, | | | 2018 | Visit | | MD [address] | | | | | | [place], [place] | | | | | | [address] | | | | | | [phone] | | | | | | | | +--------+---------+ + + + documented as of this encounter Procedures + +--------+ + + + | Procedure Name | Priori | Date/Time | Associated Diagnosis | Comments | | | ty | | | | + +--------+ + + + | IN | Routin | 04/01/2016 | Dysphagia, | | | LARYNGOSCOPY,FLEX/RI | e | 5:12 PM | unspecified type | | | GID+STROBOSCOPY | | PST | Laryngeal | | | | | | hyperfunction | | | | | | Dysphonia Globus | | | | | | sensation | | + +--------+ + + + | IN BEHAVIORAL AND | Routin | 04/01/2016 | [...]
--- OUTSIDE RECORDS SUMMARY | ~2018-11-18 | XMS | Encounter Summary ---
Demographics + + + | Address | [address] [place] [address] St. | | | [place] [address] | + + + | Home Phone [...] Team Providers + +------+ + | Care Polish Compounder Name | Role | Phone | + +------+ + | Melvina Talley | PCP | | + +------+ + Encounter Details +--------+ + + + + | Date | Type | Department | Care Team | Description | +--------+ + + + + | 03/01/ | Pharmacy | [facility] | | | | 2015 | Visit | & [facility] | | | | | | [address] | | | | | | Mailcode: [place] | | | | | | for Health and | | | | | | Healing, [address] | | | | | | [place], [place] | | | | | | [address] | | | | | | [phone] | | | +--------+ + + + [...] | | 2018 | Visit | | [address] | | | | | | [place], [place] | | | | | | [address] | | | | | | [phone] | | | | | | | | +--------+---------+ + + + documented as of this encounter Visit Diagnoses Not on filedocumented in this encounter"
--- OUTSIDE RECORDS SUMMARY | ~2018-11-18 | XMS | Encounter Summary ---
Demographics + + + | Address | [address] [place] [address] St. | | | [place] [address] | + + + | Home Phone [...] Team Providers + +------+ + | Care Drivers License Examiner Name | Role | Phone | + [...] | | ogy | | Lucy | [facility] [address] | | | | | Gastroesopha | DAVEY Zaidi | [address] | | | | | geal reflux | [address] | Mailcode: | | | | | disease, | Ave | OC2L Center | | | | | esophagitis | [place], [place] | for Health | | | | | presence not | [address] | and Healing, | | | | | specified | Phone: | Building [address] | | | | | Procedures | [phone] | [place], [place] | | | | | CONSULT TO | Fax: | [address] | | | | | GI PROCEDURE | [phone] | Phone: | | | | | UNIT: EGD | | [phone] | | | | | [place] UPPER GI | | Fax: | | | | | ENDOSCOPY,BI | | [phone] | | | | | OPSY | [...] | | | | | Essential | [facility], [place] | Rd [place], | | | | | (primary) | [address] | [place] | | | | | hypertension | Phone: | [address] | | | | | Procedures | [phone] | Phone: | | | | | CONSULT TO | Fax: | [phone] | | | | | ADULT SLEEP | [phone] | Fax: | | | | | MEDICINE | | [phone] | | | | | [place] NEW | | | | | | | PATIENT | | | | | | | LEVEL V [place] | | | | | | | [...] SW | | | | | | COLD MOLDING PRESS OPERATOR [address] | | | | | | [address] | [place], [place] | | | | | | [address] | [address] | | | | | | [place], | Phone: | | | | | | [place] | [phone] | | | | | | [address] | Fax: | | | | | | Phone: | [phone] | | | | | | [phone] | | | | | | | Fax: | | | | | | | [phone] | | +--------+--------+ + + + + [...] Globus | | | | [address] [place], | [place], [place] | sensation; | | | | [place] [address] | [address] | Gastroesophageal | | | | [phone] | [phone] | reflux disease; | | | | [...] 03/26/2016 1:30 PM PSTThank you for choosing [facility] Department of Otolaryngology for your health care needs. If you need to speak to an ENT physician after normal business hours, please call [phone] and ask to have the ENT phys ician check writer salesperson paged. documented in this encounter Progress Notes Guadalupe Faulkner MA - 03/26/2016 1:30 PM PSTlaryngoscopy procedure was performed using the following instruments: Description #1: laryngoscope Serial ID #1: [id number] Lucy Jara PA-C - 03/26/2016 1:30 PM PSTFormatting of this note might be different from the nicolas jay PATIENT: Aniket Kendall [facility] MR#: [id number] : 1980 REQUESTING PROVIDER: TAMEKA Yin [facility] [address] [place] [address] PRIMARY CARE PROVIDER: TAMEKA Mistry CLINIC: [facility] for Voice and Swallowing CHIEF COMPLAINT: Chief Complaint Patient presents with New patient consultation HPI: Aniket Kendall is a 35 y.o. female who presents to the [facility] for V oice and Swallowing with [...] night after heavy use. 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 She finds if she yells she coughs. She reports coughing at night when she lays down t o go to bed. She has woken herself up due to the cough. She notes running out of air while s he talks. She did see a cloud subject matter expert locally and had pulmonary function testing. I [...] in nose two times daily. Mix with [employer] sinus irrigati ons. Irrigate BID. Sent to [facility] BYSTOLIC 10 mg oral tablet cyclobenzaprine [...] Laryngovideostroboscopy was performed today by Latha Vasquez, ZAID-HAZMAT CDL A DRIVER. Th e patient was sprayed with Lidocaine [...] | | 2018 | Visit | | [address] | | | | | | [place], [place] | | | | | | [address] | | | | | | [phone] | | | | | | | [...]
--- OUTSIDE RECORDS SUMMARY | ~2018-11-18 | XMS | Encounter Summary ---
Demographics + + + | Address | [address] | | | [place] [address] | + + + | Home Phone | | + + + | Preferred Language | Unknown | + + + | Marital Status | | + + + | Faith Affiliation | Unknown | + + + | Race | Unknown | + + + | Ethnic Group | Unknown | + + + Author + + + | Author | [facility] | | | and Brandynana | + + + | Organization | [facility] | | | and Brandynana [...] Providers + +------+ + | Care Director River Restoration Name | Role | Phone | + +------+ + | Melvina Talley | PCP | | | CLOTHING EXAMINER | | | + +------+ + Reason [...] + + | 10/21/ | Telephone | [facility] | Joe Cespedes MD | Referral (Follow up) | | 2019 | | GASTROENTEROLOGY | [address], [facility] | (Did patient ever | | | | [address] | [address] | go to [facility] | | | | [address] | [address] | Gastroenterology) | | | | [address] | | | | | | [phone] | | | +--------+ + + + [...]
--- OUTSIDE RECORDS SUMMARY | ~2018-11-18 | XMS | Encounter Summary ---
Demographics + + + | Address | [address] [place] [address] St. | | | [place] [address] | + + + | Home Phone [...] Team Providers + +------+ + | Care Dessert Cup Machine Feeder Name | Role | Phone | + [...] | | | | CONSULT TO | [place], [place] | PV01 | | | | | ENT SPEECH | [address] | Physician's | | | | | THERAPY | Phone: | Pavilion | | | | | | [phone] | [place], [place] | | | | | | Fax: | [address] | | | | | | [phone] | Phone: | | | | | | | [phone] | | | | | | | Fax: | | | | | | | [phone] | +--------+--------+ + + + + Encounter Details +--------+ + + + + | Date | Type | Department | Care Team | Description | +--------+ + + + + | 10/25/ | Truck Crane Operator | Otolaryngology | Zochowski, | Dysphagia, | | 2015 | | Laryngology Services | Lucy Ohara PA-C | unspecified type | | | | at [facility] [address] | [address] | (Primary Dx) | | | | [address] [place], | [facility] [place] | | | | | [place] [address] | [address] | | | | | [phone] | [phone] | | | | | | | [...] | | 2019 | Visit | | [address] | | | | | | [place], [place] | | | | | | [address] | | | | | | [phone] | | | | | | | | +--------+---------+ + + + documented as of this encounter Visit Diagnoses + + | Diagnosis | + + | Dysphagia, unspecified type - Primary | + + documented in this encounter"
--- OUTSIDE RECORDS SUMMARY | ~2018-11-18 | XMS | Encounter Summary ---
Demographics + + + | Address | [address] | | | [place] [address] | + + + | Home Phone | | + + + | Preferred Language | Unknown | + + + | Marital Status | | + + + | Jewish Affiliation | Unknown | + + + | Race | Unknown | + + + | Ethnic Group | Unknown | + + + Author + + + | Author | [facility] | | | and Brandynana | + + + | Organization | [facility] | | | and Brandynana [...] Team Providers + +------+ + | Care Adult Protective Caseworker Name | Role | Phone | + +------+ + | Melvina Talley | PCP | | | CLINICAL INVESTIGATOR | | | + +------+ + Encounter Details +--------+ + + + + | Date | Type | Department | Care Team | Description | +--------+ + + + + | 09/17/ | Orders Only | [facility] | Provider, | Essential (primary) | | 2019 | | SYSTEM GENERIC OP | MD [address] | hypertension; | | | | CONVERSION [address] | [address]. | [facility] | | | | [address] [place], [place] | [place] [address] | | | | | [address] | | | | | | [phone] | | | +--------+ + + + [...]
--- OUTSIDE RECORDS SUMMARY | ~2018-11-18 | XMS | Encounter Summary ---
Demographics + + + | Address | [address] [place] [address] St. 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 | Fax: | | | | | | | [phone] | | +--------+--------+ + + + + Encounter Details +--------+---------+ + + + | Date | Type | Department | Care Team | Description | +--------+---------+ + + + | 08/17/ | Office | Otolaryngology | Gloria, | Globus sensation | | 2017 | Visit | Laryngology Services | Lucy Ohara PA-C | (Primary Dx); | | | | at [facility] [address] | [address] | Laryngeal | | | | [address] [place], | [place], [place] | hyperfunction; | | | | [place] [address] | [address] | Dysphonia; | | | | [phone] | [phone] | Odynophagia; Serous | | | | [...] 08/17/2016 2:00 PM PDTThank you for choosing [facility] Department of Otolaryngology for your health care needs. If you need to speak to an ENT physician after normal business hours, please call [phone] and ask to have the ENT phys ician nutrition services worker paged. documented in this encounter Progress Notes Guadalupe Faulkner MA - 08/17/2016 2:00 PM PDTlaryngoscopy procedure was performed using the following instruments: Description #1: laryngoscope Serial ID #1: [id number] Lucy Martino PA-C - 08/17/2016 2:00 PM PDTFormatting of this note might be different from the origina l. PATIENT NAME:Aniket Kendall [facility] MR#: [id number] : 1980 REFERRING PROVIDER: TAMEKA Yin [facility] [address] [place] [address] PRIMARY CARE PROVIDER: TAMEKA Mistry CLINIC: [facility] for Voice and Swallowing REASON FOR FOLLOW-UP: Chief Complaint Patient presents with Follow-up visit HPI: Aniket Kendall is a 36 y.o. female who was last seen at the [facility] fo r Voice and Swallowing for sensation of a lump in her throat, hoarseness and throat pain upo n swallowing. It was recommended that she undergo back to back sessions of voice therapy gi shady the distance she has to drive from [place]. She returns today noting that she feels [...] her CPAP machine due to trouble with [employer] companies. She has yet to get it [...] otalgia, odynophagia or hemoptysis. Cathleen Castro PA-C [facility] for Voice and Swallowing Department of Otolaryngology and Head and Neck Surgery documented i n this encounter Plan of Treatment +--------+---------+ + + + | Date | Type | Specialty | Care Team | Description | +--------+---------+ + + + | 12/08/ | Office | Neurology | Keon Gerber, | | | 2018 | Visit | | [address] | | | | | | [place], [place] | | | | | | [address] | | | | | | [phone] | | | | | | | | +--------+---------+ + + + documented as of this encounter Procedures + +--------+ + + + | Procedure Name | Priori | Date/Time | Associated Diagnosis | Comments | | | ty | | | | + +--------+ + + + | [place] | Routin | 08/17/2016 | Globus sensation [...]
--- OUTSIDE RECORDS SUMMARY | ~2018-11-18 | XMS | Encounter Summary ---
Demographics + + + | Address | [address] [place] [address] St. | | | [place] [address] | + + + | Home Phone [...] + + + | Author | [facility] | + + + | Organization | [facility] | + + + | [...] Team Providers + +------+ + | Care Gristmiller Name | Role | Phone | + [...] PA-C | | | | | at [facility] [address] | [address] | | | | | [address], | [place], [place] | | | | | [place] [address] | [address] | | | | | [phone] | [phone] | | | | | | | [...] [address] | | | | | | [place], [place] | | | | | | [address] | | | | | | [phone] | | | | | | | | +--------+---------+ + + + documented as of this encounter Visit Diagnoses Not on filedocumented in this encounter"
--- OUTSIDE RECORDS SUMMARY | ~2018-11-18 | XMS | Encounter Summary ---
Demographics + + + | Address | [address] [place] [address] St. | | | [place] [address] | + + + | Home Phone [...] Team Providers + +------+ + | Care Ocean Freight Manager Name | Role | Phone | [...] PA-C | | | | Order | [facility] | [address] | | | | | [address] | [place], [place] | | | | | Mailcode: OC2L | [address] | | | | | [facility] | [phone] | | | | | and [address], | | | | | | [address] | | | | | | [place], [place] | | | | | | [address] | | | | | | [phone] | | | +--------+ + + + [...] | | 2019 | Visit | | [address] | | | | | | [place], [place] | | | | | | [address] | | | | | | [phone] | | | | | | | | +--------+---------+ + + + documented as of this encounter Results EGD (04/19/2016 10:56 AM PST) + + | Specimen | + + | | + + + + + | Narrative | Performed At | + + + | MRN: | [facility] | | [id number] Date: 04/19/2016Patient Name: Order #: [id number] | ENDOSCOPY | | of : 1980CSN: [id number]: [facility] | | | 3Procedure: Upper GI | | | endoscopyIndications: Heartburn, Globus | | | sensationProviders: KAYLEEN MCCORMICK MD (Doctor), | | | KARTIK STACY RN (Nurse), | | | CLAUDIA CARTER, Public School Teacher (Public School Teacher)Referring | | | MD: ANGEL HAQ-CRequesting Provider: [...] The [employer] | | | [id number] Endoscope #[id number] was introduced | | | through the [...] Recommend acid | | | suppression medication.KAYLEEN MCCORMICK MD04/19/2016 11:32:42 AMNumber of | | | Addenda: 0Note Initiated On: 04/19/2016 10:56 AM | | + + + + +---------+ + + | Performing | Address | City/State[facility] | Phone Number | | Organization | | | | + +---------+ + + | [facility] | | | | + +---------+ + + documented in this encounter Visit Diagnoses + + | Diagnosis | + + | Gastroesophageal reflux disease, esophagitis presence not specified - Primary | + + documented in this encounter"
--- OUTSIDE RECORDS SUMMARY | ~2018-11-18 | XMS | Encounter Summary ---
Demographics + + + | Address | [address] [place] [address] St. | | | [place] [address] | + + + | Home Phone [...] + + + | Author | [facility] | + + + | Organization | [facility] | + + + | [...] Team Providers + +------+ + | Care Machine Hamper Maker Name | Role | Phone | + +------+ + | Melvina TalleyP | PCP | | + +------+ + Encounter Details +--------+ + + + + | Date | Type | Department | Care Team | Description | +--------+ + + + + | 08/23/ | MyChart | [facility] | Carmelita Craig, | RE: Been using | | 2016 | Encounter | Center at [facility] [address] | PA-C [address] | Zoltan, not better | | | | [address] | [address] [place], [place] | | | | | Mailcode: [id number] | [address] | | | | | [facility] | [phone] | | | | | and [address], | | | | | | [address], [address]th | | | | | | Floor [place], [place] | | | | | | [address] | | | | | | [phone] | | | +--------+ + + + [...] [address] | | | | | | [place], [place] | | | | | | [address] | | | | | | [phone] | | | | | | | | +--------+---------+ + + + documented as of this encounter Visit Diagnoses Not on filedocumented in this encounter"
--- OUTSIDE RECORDS SUMMARY | ~2018-11-18 | XMS | Encounter Summary ---
Demographics + + + | Address | [address] [place] [address] St. | | | [place] [address] | + + + | Home Phone [...] Team Providers + +------+ + | Care Out Patient Therapist Name | Role | Phone | + +------+ + | Melvina TalleyP | PCP | | + +------+ + Encounter Details +--------+ + + + + | Date | Type | Department | Care Team | Description | +--------+ + + + + | 07/31/ | MyChart | [facility] | Tony Rodriguez, | RE: | | 2016 | Encounter | Center at [facility] [address] | [place] [address]--insurance | | | | [address] | [address] | denied | | | | Mailcode: CH5E | [place], [place] | | | | | [facility] | [address] | | | | | and [address], | | | | | | Building , | | | | | | Floor [place], [place] | | | | | | [address] | | | | | | [phone] | | | +--------+ + + + [...] [address] | | | | | | [place], [place] | | | | | | [address] | | | | | | [phone] | | | | | | | | +--------+---------+ + + + documented as of this encounter Visit Diagnoses Not on filedocumented in this encounter"
--- OUTSIDE RECORDS SUMMARY | ~2018-11-18 | XMS | Encounter Summary ---
Demographics + + + | Address | [address] [place] [address] St. | | | [place] [address] | + + + | Home Phone [...] Team Providers + +------+ + | Care Plycor Operator Name | Role | Phone | [...] | | | | NO VIDEO, | [place], [place] | | | | | | AMBULATORY, | [address] | | | | | | ADULT | Phone: | | | | | | | [phone] | | | | | | | Fax: | | | | | | | [phone] | | + +--------+ + + + + Reason for Visit Office Visit - E/M Services (Routine) + [...] | | | | epileptic | | [facility] | | | | | syndromes, | | for Health | | | | | not | | and Healing, | | | | | intractable, | | Building [address], | | | | | without | | 8th Floor | | | | | status | | [place], [place] | | | | | epilepticus | | [address] | | | | | Procedures | | Phone: | | | | | NE NEW | | [phone] | | | | | PATIENT | | Fax: | | | | | LEVEL V NE | | [phone] | | | | | EST PATIENT [...] without | | 2019 | Visit | [place] [address] [address] | MD [address] | aura and without | | | | [address] | [place], [place] | status migrainosus, | | | | [place] | [address] | not intractable | | | | [address] | [phone] | (Primary Dx); | | | | [phone] | | Myoclonus; RLS | | | [...] EEG, please call the EEG department at [phone]. 2. Continue levetiracetam 1500 mg twice a [...] might be different fro m the original. [facility] NEUROLOGY CLINIC FOLLOW UP NOTE Today's Date: 08/04/2018 Last Visit: 03/14/2018 Author: Keon Gerber MD Patient ID: Aniket Sweeney is a 37 y.o. woman who is referred for neurological consulta tion for evaluation of a constellation of symptoms, particularly the jerking of extremities on the left. 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 She notes that she started having jerking movement which has been present since 2013. She was started on Keppra 500 mg bid after seeing Dr Bertrand in th e ED on 12/09/217 and she states [...] without alteration of awareness. She has followed [facility] neurologists; saw Dr Nguyen Prince at [facility] in 2013 who suspected myocl onus. Per patient, she had an EEG which captured them and was told that the EEG was normal ( work-up done in [place], [place]). She was not started on medications, but referred to [facility] neur ology for further evaluation/treatment options. She saw Neurology at [facility]; Dr Hauser in 02/2015 who [...] facility-administered medications for this visit. Exam Vitals: 06/17/19 1549 BP: 117/82 BP Location: Left upper [...] EEG 24 hr, No Video, Ambulatory, Adult [[id number]] gabapentin 300 mg oral capsule I spent 45 minutes with the patient during the visit. More than half of the visit was spent counseling the patient. Keon Gerber MD Neurology Department [facility] Ethel Pager [phone] signed by Keon Gerber MD at 08/05/2018 4:25 PM PDTdocumented in this encounter Plan of Treatment +--------+---------+ + + + | Date | Type | Specialty | Care Team | Description | +--------+---------+ + + + | 12/08/ | Office | Neurology | Keon Gerber, | | | 2018 | Visit | | [address] | | | | | | [place], [place] | | | | | | [address] | | | | | | [phone] | | | | | | | | +--------+---------+ + + + + + +--------+ + + | Name [...]
--- OUTSIDE RECORDS SUMMARY | ~2018-11-18 | XMS | Encounter Summary ---
Demographics + + + | Address | [address] [place] [address] St. | | | [place] MARCUM [address] | + + + | Home Phone [...] Team Providers + +------+ + | Care Top Distribution Executive Name | Role | Phone | [...] | | | | | type | [address] | Ceci Christopher | | | | | Procedures | Ave | Mailcode: | | | | | CONSULT TO | [facility], [place] | [address] | | | | | ENT SPEECH | [address] | Physician's | | | | | THERAPY | Phone: | Pavilion | | | | | | [phone] | [place], [place] | | | | | | Fax: | [address] | | | | | | [phone] | Phone: | | | | | | | [phone] | | | | | | | Fax: | | | | | | | [phone] | +--------+--------+ + + + + Encounter Details +--------+ + + + + | Date | Type | Department | Care Team | Description | +--------+ + + + + | 03/26/ | Diagnostic | Otolaryngology | Matthias Wright, | | | 2017 | Visit | Speech Therapy | METAL TANK BUILDER [address] | | | | | Services at PPV | [address] | | | | | [address] | [place] [address] | | | | | Ceci Christopher Mailcode: | [phone] | | | | | [address] Physician's | | | | | | [place], | | | | | | [place] [address] | | | | | | [phone] | | | +--------+ + + + [...] be different fro m the original. Clinic: [facility] Referring Physician: Lucy Castro PA-C [address] [place] [address] PCP: TAMEKA Mistry Medical Diagnosis: No diagnosis [...] 35 y.o. female who presents to the [facility] for foll ow up of [...] and s moking cessation). Matthias Wright, PhD, CCC-METAL TANK BUILDER [facility] [employer] Dept. of Otolaryngology, [address] [place] [address] documented in this en counter Plan of Treatment +--------+---------+ + + + | Date | Type | Specialty | Care Team | Description | +--------+---------+ + + + | 12/08/ | Office | Neurology | Keon Gerber, | | | 2019 | Visit | | [address] | | | | | | [facility] [place] | | | | | | [address] | | | | | | [phone] | | | | | | | | +--------+---------+ + + + documented as of this encounter Visit Diagnoses Not on filedocumented in this encounter"
--- OUTSIDE RECORDS SUMMARY | ~2018-11-18 | XMS | Encounter Summary ---
Demographics + + + | Address | [address] [place] [address] St. | | | [place]ARCUM [address] | + + + | Home Phone [...] Team Providers + +------+ + | Care Warehouse Selector Name | Role | Phone | + +------+ + | Melvina TalleyP | PCP | | + +------+ + Encounter Details +--------+ + + + + | Date | Type | Department | Care Team | Description | +--------+ + + + + | 07/31/ | Documentati | [facility] | Haroon Biggs, | | | 2016 | on | Center at [facility] [address] | | | | | [address] | | | | | | Mailcode: CHE | | | | | | [facility] | | | | | | and Healing, | | | | | | Building [address], 5th | | | | | | Floor [place], [place] | | | | | | [address] | | | | | | [phone] | | | +--------+ + + + [...] | | 2019 | Visit | | [address] | | | | | | [place], [place] | | | | | | [address] | | | | | | [phone] | | | | | | | | +--------+---------+ + + + documented as of this encounter Visit Diagnoses Not on filedocumented in this encounter"
--- OUTSIDE RECORDS SUMMARY | ~2018-11-18 | XMS | Encounter Summary ---
Demographics + + + | Address | [address] [place] [address] St. | | | [place] MARCUM [address] | + + + | Home Phone [...] Team Providers + +------+ + | Care Rating Examiner Name | Role | Phone | [...] as of this encounter Progress Notes Interface, Crusher Loader Equipment Operator In - 02/11/2006 2:31 AM PSTCLINIC DATE: 05/31/1998 GENERAL NEUROLOGY CLINIC SUBJECTIVE: Ms. Kendall returns for followup of her migraines. I last saw her on February 22. She had an MRI completed in [place] which was suggestive of hippocampal sclerosis, but followup MRI with temporal lobe cuts here at [facility] was negative. She also had a [...] M.D. JQ/wdf cc: GARRY WAY MD [address] [facility] [place] [id number] signed by Interface, Crusher Loader Equipment Operator In at 02/11/2006 2:31 AM PSTdocumented in this encounter Plan of Treatment +--------+---------+ + + + | Date | Type | Specialty | Care Team | Description | +--------+---------+ + + + | 12/08/ | Office | Neurology | Keon Gerber, | | | 2018 | Visit | | [address] | | | | | | [place], [place] | | | | | | [address] | | | | | | [phone] | | | | | | | | +--------+---------+ + + + documented as of this encounter Visit Diagnoses Not on filedocumented in this encounter"
--- OUTSIDE RECORDS SUMMARY | ~2018-11-18 | XMS | Encounter Summary ---
Demographics + + + | Address | [address] [place] [address] St. | | | [place] MARCUM [address] | + + + | Home Phone [...] Team Providers + +------+ + | Care Cut Pressman Name | Role | Phone | + [...] Maynor | | | | | | TRAFFIC MANAGER [address] | | | | | | [address] | [address] [place], | | | | | | [address] | [place] | | | | | | [place], | [address] | | | | | | [place] | | | | | | | [address] | | | | | | | Phone: | | | | | | | [phone] | | | | | | | Fax: | | | | | | | [phone] | | +--------+--------+ + + + + [...] | not intractable | | | | [facility] | | (Primary Dx); | | | | Health and Healing, | | Abnormal brain MRI; | | | | | | Myoclonus; Memory | | | | Floor [facility] [place] | | changes | | | | [address] | | | | | | [phone] | | | +--------+---------+ + + + [...] right-handed who is being seen at [facility] for evaluation of [...] that were bot h done at [facility]. We do not have records of the [...] during sleep. Labs from Dr Hanna at [facility]: TSH TSH 1.72 CERULOPLASMIN 50 COPPER, SERUM COPPER 224 (mildly elevated) WBC 7.9 RBC 4.77 HGB 13.7 HCT 42.2 MCV 88.5 MCH 28.7 MCHC 32.4 RDW SD 38.9 PLT 277 MPV 8.1 DIFF TYPE AUTOMATED NEUTROPHILS 51.9 LYMPHOCYTES 38.7 MONOCYTES 4.9 EOSINOPHILS 4.2 BASOPHILS 0.3 Most recent MRI done at [facility]. PMH: HTN (hypertension) GERD (gastroesophageal reflux [...] file Social History Narrative She lives in [place] with her boyfriend and her two kids. She works as an in-home [employer]. Family History: sister with similar symptoms. Being [...] have requested the actual image s from [facility] but have not received them yet. The description on the report sounds like non-specific white matter lesions which are not consistent with MS. Diagnosis: - migraine without aura, not intractable, without status migrainosus - abnormal brain MRI - possible myoclonus - memory changes Assessment: Aniket Kendall is a 34 year old right-handed who is being seen at [facility] for evaluation of abnormal brain [...] was reassured by her normal cognitive exam (WiC A ). Ultimately many of her symptoms [...] is a product called Preventa migraine from [employer] that contains all of the above supplements [...] diagnoses and treatment options. Gallo Hauser MD Occupational Health Technician Department of Neurology documented in this en counter Plan of Treatment +--------+---------+ + + + | Date | Type | Specialty | Care Team | Description | +--------+---------+ + + + | 12/08/ | Office | Neurology | Keon Gerber, | | | 2019 | Visit | | [address] | | | | | | [place], [place] | | | | | | [address] | | | | | | [phone] | | | | | | | [...]
--- OUTSIDE RECORDS SUMMARY | ~2018-11-18 | XMS | Encounter Summary ---
Demographics + + + | Address | [address] [place] [address] St. | | | [place]SA MARCUM [address] | + + + | Home Phone | | + + + | Preferred Language | Unknown | + + + | Marital Status | | + + + | Church Affiliation | NON | + + + [...] Team Providers + +------+ + | Care Guard Range Name | Role | Phone | + +------+ + | Melvina Talley | PCP | | + +------+ + Encounter Details +--------+ + + + + | Date | Type | Department | Care Team | Description | +--------+ + + + + | 03/01/ | Pharmacy | [facility] | | | | 2015 | Visit | & [facility] | | | | | | [address] | | | | | | Mailcode: [place] | | | | | | for Health and | | | | | | Healing, Building [address] | | | | | | [place], [place] | | | | | | [address] | | | | | | [phone] | | | +--------+ + + + [...] | | 2018 | Visit | | [address] | | | | | | [place], [place] | | | | | | [address] | | | | | | [phone] | | | | | | | | +--------+---------+ + + + documented as of this encounter Visit Diagnoses Not on filedocumented in this encounter"
--- OUTSIDE RECORDS SUMMARY | ~2018-11-18 | XMS | Clinical Summary ---
Demographics + + + | Address | [address] [place] [address] St. | | | [place] MARCUM [address] | + + + | Home Phone | | + + + | Preferred Language | Unknown | + + + | Marital Status | | + + + | Judaism Affiliation | NON | + + + | Race | White | + + + | Ethnic Group | Not or | + + + Author + + + | Author | [facility] | + + + | Organization | [facility] | + + + | Address | [...] Team Providers + +------+ + | Care Direct Customer Service Representative Name | Role | Phone | + +------+ + | Melvina TalleyP | PCP | | + +------+ + Source Comments ANSHU is fully live on both EpicCare Ambulatory and EpicCare InPatient.[facility] Allergies + + + + + + [...] | | 2018 | Visit | | [address] | | | | | | [place], [place] | | | | | | [address] | | | | | | [phone] | | | | | | | [...] | | | + +--------+ +--------+-------+---------+--------+ | [employer] MEDICAID | CH[employer]ER HAND | [id number] | 01/29/ | | | Medica | | | EASTER | | 2016-P | | | id | | | [place] | | resent | | | | + +--------+ +--------+-------+---------+--------+ | [employer]ICAID | [employer] | [id number] | 02/18/19 | | | [...] | 1979 | [phone] | [place] [id number] | | | paramjit | | | [...]
--- OUTSIDE RECORDS SUMMARY | ~2018-11-18 | XMS | Encounter Summary ---
Demographics + + + | Address | [address] [place] [address] St. | | | [place] MARCUM [address] | + + + | Home Phone [...] Team Providers + +------+ + | Care Bilingual Inside Sales Representative Name | Role | Phone | [...] | | | | CONSULT TO | [place], [place] | [address] | | | | | ENT SPEECH | [address] | Physician's | | | | | THERAPY | Phone: | Pavilion | | | | | | [phone] | [place], [place] | | | | | | Fax: | [address] | | | | | | [phone] | Phone: | | | | | | | [phone] | | | | | | | Fax: | | | | | | | [phone] | +--------+--------+ + + + + Encounter Details +--------+ + + + + | Date | Type | Department | Care Team | Description | +--------+ + + + + | 10/25/ | Jar Filler | Otolaryngology | Zochowski, | Dysphagia, | | 2015 | | Laryngology Services | Lucy Ohara PA-C | unspecified type | | | | at [facility] [address] | [address] | (Primary Dx) | | | | [address] [place], | [facility] [place] | | | | | [place] [address] | [address] | | | | | [phone] | [phone] | | | | | | | [...] | | 2019 | Visit | | [address] | | | | | | [place], [place] | | | | | | [address] | | | | | | [phone] | | | | | | | | +--------+---------+ + + + documented as of this encounter Visit Diagnoses + + | Diagnosis | + + | Dysphagia, unspecified type - Primary | + + documented in this encounter"
--- OUTSIDE RECORDS SUMMARY | ~2018-11-18 | XMS | Encounter Summary ---
Demographics + + + | Address | [address] [place] [address] St. | | | [place] MARCUM [address] | + + + | Home Phone [...] Team Providers + +------+ + | Care House Carpenter Helper Name | Role | Phone | + +------+ + | Melvina TalleyP | PCP | | + +------+ + Encounter Details +--------+ + + + + | Date | Type | Department | Care Team | Description | +--------+ + + + + | 05/07/ | MyChart | Neurology at | Keon Gerber, | Vitamin D | | 2019 | Encounter | [facility] & | [address] | | | | | [address] | [place], [place] | | | | | [address] Mailcode: | [address] | | | | | [facility] | [phone] | | | | | Health and Healing, | | | | | | [facility] | | | | | | [place], [place] | | | | | | [address] | | | | | | [phone] | | | +--------+ + + + [...] | | 2018 | Visit | | [address] | | | | | | [place], [place] | | | | | | [address] | | | | | | [phone] | | | | | | | | +--------+---------+ + + + documented as of this encounter Visit Diagnoses Not on filedocumented in this encounter"
--- OUTSIDE RECORDS SUMMARY | ~2018-11-18 | XMS | Encounter Summary ---
Demographics + + + | Address | [address] [place] [address] St. | | | [place] MARCUM [address] | + + + | Home Phone | | + + + | Preferred Language | Unknown | + + + | Marital Status | | + + + | Anabaptist Affiliation | NON | + + + | Race | White | + + + | Ethnic Group | Not or | + + + Author + + + | Author | [facility] | + + + | Organization | [facility] | + + + | Address [...] Team Providers + +------+ + | Care Swing Saw Operator Name | Role | Phone [...] | 2017 | on | Center at [facility] [address] | MD | | | | | [address] | | | | | | Mailcode: Center | | | | | | for Health and | | | | | | Healing, [facility] 2 | | | | | | [place], [place] | | | | | | [address] | | | | | | [phone] | | | +--------+ + + + [...] | | 2018 | Visit | | [address] | | | | | | [place], [place] | | | | | | [address] | | | | | | [phone] | | | | | | | | +--------+---------+ + + + documented as of this encounter Visit Diagnoses Not on filedocumented in this encounter"
--- OUTSIDE RECORDS SUMMARY | ~2018-11-18 | XMS | Encounter Summary ---
Demographics + + + | Address | [address] [place] [address] St. | | | [place] MARCUM [address] | + + + | Home Phone [...] Team Providers + +------+ + | Care Shipping And Receiving Material Handler Name | Role | Phone | + [...] | | | | | AMBULATORY, | [address] | | | | | | ADULT | Phone: | | | | | | | [phone] | | | | | | | Fax: | | | | | | | [phone] | | + +--------+ + + + [...] | | | | epileptic | | [facility] Center | | | | | syndromes, | | for Health | | | | | not | | and Healing, | | | | | intractable, | | Building 1, | | | | | without | | 8th Floor | | | | | status | | [place], [place] | | | | | epilepticus | | [address] | | | | | Procedures | | Phone: | | | | | [place] NEW | | [phone] | | | | | PATIENT | | Fax: | | | | | LEVEL V [place] | | [phone] | | | | | EST PATIENT [...] without | | 2019 | Visit | [place] [address] [address] | MD [address] | aura and without | | | | [address] | [place], [place] | status migrainosus, | | | | [place], [place] | [address] | not intractable | | | | [address] | [phone] | (Primary Dx); | | | | [phone] | | Myoclonus; RLS | | | [...] EEG, please call the EEG department at [phone]. 2. Continue levetiracetam 1500 mg twice a [...] might be different fro m the original. [facility] NEUROLOGY CLINIC FOLLOW UP NOTE Today's Date: 08/04/2018 Last Visit: 03/14/2018 Author: Keon Gerber MD Patient ID: Aniket Sweeney is a 37 y.o. woman who is referred for neurological consulta tion for evaluation of a constellation of symptoms, particularly the jerking of extremities on the left. Diagnoses: Myoclonus Hx: She was seen at [facility] [...] without alteration of awareness. She has followed [facility] neurologists; saw Dr Nguyen Prince at [facility] in 2013 who suspected myocl onus. Per patient, she had an EEG which captured them and was told that the EEG was normal ( work-up done in [place], [place]). She was not started on medications, but referred to [facility] neur ology for further evaluation/treatment options. She [...] EEG 24 hr, No Video, Ambulatory, Adult [[id number]] gabapentin 300 mg oral capsule I spent 45 minutes with the patient during the visit. More than half of the visit was spent counseling the patient. Keon Gerber MD Neurology Department [facility] [place] Pager [phone] signed by Keon Gerber MD at 08/05/2018 4:25 PM PDTdocumented in this encounter Plan of Treatment +--------+---------+ + + + | Date | Type | Specialty | Care Team | Description | +--------+---------+ + + + | 12/08/ | Office | Neurology | Keon Gerber, | | | 2018 | Visit | | [address] | | | | | | [place], [place] | | | | | | [address] | | | | | | [phone] | | | | | | | [...]
--- OUTSIDE RECORDS SUMMARY | ~2018-11-18 | XMS | Encounter Summary ---
Demographics + + + | Address | [address] [place] [address] St. | | | [place] M[place] [address] | + + + | Home Phone [...] Providers + +------+ + | Care Sales Support Technician Name | Role | Phone | [...] | W CONTRAST | [facility] [place] | [address] [facility] | | | | | [address] CT NECK | [address] | Hospital | | | | | TISSUE | Phone: | [place], [place] | | | | | CONTRAST | [phone] | [address] | | | | | | Fax: | Phone: | | | | | | [phone] | [phone] | | | | | | | Fax: | | | | | | | [phone] | +--------+--------+ + + + + Reason [...] SW | | | | | | [employer]ERW[employer]UNTER TRAP[address] | | | | | | | [place], [place] | | | | | | [address] | [address] | | | | | | [place], | Phone: | | | | | | [place] | [phone] | | | | | | [address] | Fax: | | | | | | Phone: | [phone] | | | | | | [phone] | | | | | | | Fax: | | | | | | | [phone] | | +--------+--------+ + + + + Encounter Details +--------+---------+ + + + | Date | Type | Department | Care Team | Description | +--------+---------+ + + + | 05/30/ | Office | Otolaryngology | Gloria, | Odynophagia (Primary | | 2017 | Visit | Laryngology Services | Lucy Zaidi PA-C | Dx); Globus | | | | at [facility] [address] | [address] | sensation; Laryngeal | | | | [address] [place], | [place], [place] | hyperfunction; | | | | [place] [address] | [address] | Muscle tension | | | | [phone] | [phone] | dysphonia; | | | | | [...] 05/30/2016 11:00 AM PDTThank you for choosing [facility] Department of Otolaryngology for your health care needs. If you need to speak to an ENT physician after normal business hours, please call [phone] and ask to have the ENT phys richa rocket engine component mechanic paged. 1. Get the CT scan of your neck. You will likely need to schedule this in 2 weeks when you come back to [place] 2. I will call you with the [...] instruments: Description #1: laryngoscope Serial ID #1: [id number] Lucy Martino PA-C - 05/30/2016 11:00 AM PDTFormatting of this note might be different from the origina l. PATIENT NAME:Aniket Kendall MR#: [id number] : 1980 REFERRING PROVIDER: TAMEKA Yin [facility] [address] [place] [address] PRIMARY CARE PROVIDER: ATMEKA Mistry CLINIC: [facility] REASON FOR FOLLOW-UP: Chief Complaint Patient presents with Follow-up visit HPI: Aniket Kendall is a 35 y.o. female who was last seen at the [facility] for pain [...] the results and her [facility] who recommended daily apple cider [...] that really controls her headaches, but her oncology research rn wants to get her off of these due to her chronic kidney disease. They are unclear what the headaches are due to. She says she has multiple lesions found previously on MRI which brought [facility] into [facility]. She has undergone 5 [...] when she comes given the distance from [place]. 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 Acid suppression was recommended, but she already takes 20mg omep razole twice daily and her oncology research rn who manages her chronic kidney diease has [...] with contrast. This will assess ruling out saint regis's syndrome and a lesion. I will call [...] [address] | | | | | | [place], [place] | | | | | | [address] | | | | | | [phone] | | | | | | | | +--------+---------+ + + + documented as of this encounter Procedures + +--------+ + + + | Procedure Name | Priori | Date/Time | Associated Diagnosis | Comments | | | ty | | | | + +--------+ + + + | CO | Routin | 05/31/2016 | Odynophagia | [...]
--- OUTSIDE RECORDS SUMMARY | ~2018-11-18 | XMS | Encounter Summary ---
Demographics + + + | Address | [address] [place] [address] St. | | | [place] [address] | + + + | Home Phone [...] Providers + +------+ + | Care Supervisor Cell Room Name | Role | Phone | + [...] | 2017 | Encounter | Center at [facility] [address] | MD | | | | | [address] | | | | | | Mailcode: Center | | | | | | [facility] and | | | | | | [facility] 2 | | | | | | [place], [place] | | | | | | [address] | | | | | | [phone] | | | +--------+ + + + [...] | | 2018 | Visit | | [address] | | | | | | [place], [place] | | | | | | [address] | | | | | | [phone] | | | | | | | | +--------+---------+ + + + documented as of this encounter Visit Diagnoses Not on filedocumented in this encounter"
--- OUTSIDE RECORDS SUMMARY | ~2018-11-18 | XMS | Encounter Summary ---
Demographics + + + | Address | [address] [place] [address] St. | | | [place] [address] | + + + | Home Phone [...] Providers + +------+ + | Care Driver License Examiner Name | Role | Phone [...] | | | | | | | [place], [place] | | | | | | | [address] | +--------+--------+ + + + + Encounter Details +--------+---------+ + + + | Date | Type | Department | Care Team | Description | +--------+---------+ + + + | 07/26/ | Office | [facility] | Carmelita Craig, | Chronic ethmoidal | | 2015 | Visit | Center at [facility] [address] | PA-C [address] | sinusitis (Primary | | | | [address] | [address] [place], [place] | Dx); Chronic | | | | Mailcode: CH5E | [address] | maxillary sinusitis | | | | Center for Health | [phone] | | | | | and Healing, | | | | | | Building [address], | | | | | | [place], [place] | | | | | | [address] | | | | | | [phone] | | | +--------+---------+ + + + [...] Craig PA-C - 07/27/2015 1:33 PM PDT [facility] HPI: Aniket Kendall is a 35 y.o. female who presents to the [facility] for fol low up of [...] in nose two times daily. Mix with [employer] sinus irrigati ons. Irrigate BID. Sent to [facility] cyclobenzaprine 10 mg oral tablet Take [...] [address] | | | | | | [place], [place] | | | | | | [address] | | | | | | [phone] | | | | | | | | +--------+---------+ + + + documented as of this encounter Procedures + +--------+ + + + | Procedure Name | Priori | Date/Time | Associated Diagnosis | Comments | | | ty | | | | + +--------+ + + + | NC NASAL | Routin | 07/27/2015 | Chronic [...]
[~2018-11-18 21:19] MED LIST changes: +5-HTP100 MG PO; +AMITRIPTYLINE H10 MG PO; -ATIVAN0.5 MG PO; +ATIVAN2 MG PO; +GABAPENTIN300 MG PO; +HYDROXYZINE HCL10 MG PO; -HYDROXYZINE PAM50 MG; +LIVER COMPLEX1 EACH PO; +MIRTAZAPINE7.5 MG PO; +OXYCODONE HCL10 MG PO; -OXYCODONE HCL5 MG PO; -PROMETHAZINE HC25 M1 PO; +PROMETHAZINE12.5 M1 PO; +QUETIAPINE FUMA50 MG PO; +REQUIP3 MG PO; +SLEEP AID50 MG PO; +ZOFRAN8 MG PO; +ZOLPIDEM TARTRA10 MG PO
--- OUTSIDE RECORDS SUMMARY | 2018-11-18 21:22 | XMS ---
PreManage Notification: ESTELLA AMADOR Security Adult Education Instructor Events No recent Security Events currently on file CRITERIA MET - Group Notification - [facility] - Has Care Guidelines - PDMP CARE PROVIDERS VIRIDIANA DARDEN Nurse Practitioner: Family 05/26/2018-Current PHONE: Unknown Guidelines Source: [facility] Guidelines Date: 09/22/2018 Care Coordination: Has received mental health services with [facility] (currently not engaging).\T\ nbsp; \T\nbsp;Please contact [facility] for mental health concerns. [place]/ [facility]: [phone]\T\nbsp; \T\nbsp;[facility]: [phone]. Care History Substance Use/Overdose 09/25/2018 [facility] ADMITTED FOR POLY DRUG OVERDOSE DISCHARGED 09/25/18 ON [facility] AND PLACED AT [facility] Medical/Surgical 05/27/2018 [facility] CASE MANAGEMENT REFERRAL MADE- PATIENT HAS [facility] AND NO PCP. E.D. VISIT COUNT (12 MO.) 1 [facility] [address] [facility] [address] [facility] [place] TOTAL 8 NOTE: Visits indicate total known visits. ED/UCC VISIT TRACKING (12 MO.) 11/18/2018 21:20 [facility] [place] TYPE: Emergency COMPLAINT: - BREATHING ISSUES 09/22/2018 16:06 [facility] [place] TYPE: Emergency COMPLAINT: - OD 09/21/2018 11:35 [facility] [place] TYPE: Emergency COMPLAINT: - EVALUATION DIAGNOSES: - Other jail (current) drug therapy - Essential (primary) hypertension - Allergy status to penicillin - Encounter for other general examination 09/20/2018 21:01 [facility] [place] TYPE: Emergency COMPLAINT: - OVERDOSE 05/24/2018 22:16 [facility] [place] TYPE: Emergency COMPLAINT: - POSS OVERDOSE DIAGNOSES: - Other jail (current) drug therapy - Nausea with vomiting, unspecified - Hypertensive chronic kidney disease with stage 1 through stage 4 chronic kidney disease, or unspecified chronic kidney disease - Unspecified abdominal pain - Disorientation, unspecified - Chronic kidney disease, stage 1 - Allergy status to penicillin - Other chronic pain 03/26/2018 17:47 [facility] [place] TYPE: Emergency COMPLAINT: - POSS ABD ABSCESS DIAGNOSES: - Essential (primary) hypertension - Other jail (current) drug therapy - Personal history of nicotine dependence - Allergy status to penicillin - Cutaneous abscess of abdominal wall 12/09/2017 17:36 [facility] TYPE: Emergency DIAGNOSES: 75999. l side pain 39413. Other generalized epilepsy and epileptic syndromes, not intractable, without status epilepticus 12/02/2017 20:35 [facility] [place] TYPE: Emergency COMPLAINT: - POSS ABSCESS DIAGNOSES: - Personal history of nicotine dependence - Other jail (current) drug therapy - Hypertensive chronic kidney disease with stage 1 through stage 4 chronic kidney disease, or unspecified chronic kidney disease - Chronic kidney disease, stage 1 - Allergy status to penicillin - Chondrocostal junction syndrome [Shruthie] INPATIENT VISIT TRACKING (12 MO.) 09/22/2018 18:01 [facility] [place] TYPE: Critical Care COMPLAINT: - POLYPHARMACY OD DIAGNOSES: - Nicotine dependence, unspecified, uncomplicated - Coma scale, best verbal response, none, at arrival to emergency department - Coma scale, best motor response, none, at arrival to emergency department - Coma scale, eyes open, never, at arrival to emergency department - Essential (primary) hypertension - Epilepsy, unspecified, not intractable, without status epilepticus - Extrapyramidal and movement disorder, unspecified - Unspecified coma - Conduct disorder, unspecified - Acute respiratory failure, unspecified whether with hypoxia or hypercapnia - Allergy status to penicillin - Other corporate statistical financial analyst (current) drug therapy - jail (current) use of opiate analgesic - Disorder of brain, unspecified - Finding of other specified substances, not normally found in blood - Other chronic pain - Poisoning by unspecified drugs, medicaments and biological substances, accidental (unintentional), initial encounter 09/20/2018 21:02 [facility] [place] TYPE: Observation COMPLAINT: - OVERDOSE DIAGNOSES: - Allergy status to penicillin - Altered mental status, unspecified - Procedure and treatment not carried out due to patient leaving prior to being seen by health care provider - Chronic kidney disease, stage 1 - Disorder of brain, unspecified - Anxiety disorder, unspecified - recycling coordinator (current) use of opiate analgesic - Other jail (current) drug therapy - Hypertensive chronic kidney disease with stage 1 through stage 4 chronic kidney disease, or unspecified chronic kidney disease - Fibromyalgia - Toxic effect of unspecified substance, accidental (unintentional), initial encounter [email or web address]
== END 2018-11-18 22:18 | disposition left against medical advice (07) ==
LOC: ED 21:19
DX: Z53.21 Procedure and treatment not carried out due to patient leaving prior to being seen by health care provider (principal)

== ENCOUNTER 2018-12-26 20:25 | Emergency (ER) | payer OTHER ==
[~2018-12-26] VITALS: Ht 160 cm; Wt 86.3 kg
--- OUTSIDE RECORDS SUMMARY | ~2018-12-26 | XMS | Encounter Summary ---
Demographics + + + | Address | [address] | | | [place] [address] | + + + | Home Phone | | + + + | Preferred Language | Unknown | + + + | Marital Status | | + + + | Muslim Affiliation | NON | + + + | Race | White | + + + | Ethnic Group | Not or | + + + Author + + + | Author | [facility] | + + + | Organization | [facility] | + + + | Address [...] Team Providers + +------+ + | Care Cloud Automation Tester Name | Role | Phone | + +------+ + | Melvina TalleyP | PCP | | + +------+ + Encounter Details +--------+ + + + + | Date | Type | Department | Care Team | Description | +--------+ + + + + | 04/20/ | Documentati | Digestive Health | Guzman Ferrell, | | | 2017 | on | Center at [facility] [address] | MD | | | | | [place]ACKENZIE Lilly | | | | | | Mailcode: Center | | | | | | for Health and | | | | | | Healing, [facility] [address] | | | | | | [place], [place] | | | | | | [address] | | | | | | [phone] | | | +--------+ + + + [...] as of this encounter Plan of Treatment Not on filedocumented as of this encounter Visit Diagnoses Not on filedocumented in this encounter"
--- OUTSIDE RECORDS SUMMARY | ~2018-12-26 | XMS | Encounter Summary ---
Demographics + + + | Address | [address] | | | [place] [address] | + + + | Home Phone | | + + + | Preferred Language | Unknown | + + + | Marital Status | | + + + | Sabianist Affiliation | NON | + + + | Race | White | + + + | Ethnic Group | Not or | + + + Author + + + | Organization | Unknown | + + + | Address | [...] Team Providers + +------+ + | Care Recycling Operator Name | Role | Phone | + +------+ + | GerriJhonMelvinaroque ENGLISH | PCP | | + +------+ + Encounter Details +--------+--------+ + + + | Date | Type | Department | Care Team | Description | +--------+--------+ + + + | 08/04/ | Travel | | | | | 2019 | | | | | +--------+--------+ + + + Social History + +-------+ [...]
--- OUTSIDE RECORDS SUMMARY | ~2018-12-26 | XMS | Encounter Summary ---
Demographics + + + | Address | [address] | | | [place] [address] | + + + | Home Phone | | + + + | Preferred Language | Unknown | + + + | Marital Status | | + + + | Quaker Affiliation | NON | + + + | Race | White | + + + | Ethnic Group | Not or | + + + Author + + + | Author | [facility] | + + + | Organization | [facility] | + + + | Address [...] Team Providers + +------+ + | Care Interface Designer Name | Role | Phone | + +------+ + | Melvina Talley | PCP | | + +------+ + Encounter Details +--------+------+ + + + | Date | Type | Department | Care Team | Description | +--------+------+ + + + | 03/14/ | Lab | Laboratory at [facility] | | RLS (restless legs | | 2019 | | [address] | | syndrome); Abdominal | | | | [place], [place] | | pain, unspecified | | | | [address] | | abdominal location; | | | | [phone] | | Myoclonus; | | | | | | Hypovitaminosis D | +--------+------+ + + + Social History + +-------+ [...] Not on filedocumented as of this encounter Procedures + +--------+ + + + | Procedure Name | Priori | Date/Time | Associated Diagnosis | Comments | | | ty | | | | + +--------+ + + + | PORPHYRINS AND | Routin | 03/14/2018 | Abdominal pain, | Results for this | | PORPHOBILINOGEN, | e | 4:29 PM | unspecified | procedure are in the | | URINE | | PST | abdominal location | results section. | + +--------+ + + + | ALA, URINE | Routin | 03/14/2018 | Abdominal pain, | Results for this | | | e | 4:29 PM | unspecified | procedure are in the | | | | PST | abdominal location | results section. | + +--------+ + + + | CBC AND AUTO DIFF | Routin | 03/14/2018 | Myoclonus | Results for this | | | e | 4:26 PM | | procedure are in the | | | | PST | | results section. | + +--------+ + + + | CBC, WITH | Routin | 03/14/2018 | Myoclonus | Results for this | | DIFFERENTIAL | e | 4:26 PM | | procedure are in the | | | | PST | | results section. | + +--------+ + + + | VITAMIN D, | Routin | 03/14/2018 | Hypovitaminosis D | Results for this | | 25-HYDROXY, SERUM | e | 4:26 PM | | procedure are in the | | | | PST | | results section. | + +--------+ + + + | COMPLETE METABOLIC | Routin | 03/14/2018 | Myoclonus | Results for this | | SET | e | 4:26 PM | | procedure are in the | | (NA,K,CL,CO2,BUN,CRE | | PST | | results section. | | AT,GLUC,CA,AST,ALT,B | | | | | | BAKARI TOTAL,ALK | | | | | | PHOS,ALB,PROT TOTAL) | | | | | + +--------+ + + + | FERRITIN | Routin | 03/14/2018 | RLS (restless legs | Results for this | | | e | 4:26 PM | syndrome) | procedure are in the | | | | PST | | results section. | + +--------+ + + + documented in this encounter Results ALA, URINE (03/14/2018 4:29 PM PST) + + + + + + | Component | Value | Ref Range | Performed | Pathologist | | | | | At | Signature | + + + + + + | AMINOLEVULI | Not Applicable | 0 - 60 umol/d | [facility] | | | ONEIL ACID - | | | REG UNIV | | | PER 24H | | | PTH - INTFC | | + + + + + + | AMINOLEVULI | 10 | 0 - 35 umol/L | [facility] | | | ONEIL ACID - | | | REG UNIV | | | PER VOLUME | | | PTH - INTFC | | + + + + + + | CREATININE, | Not Applicable | 700 - 1600 mg/d | [facility] | | | UR(REFERRAL | | | REG UNIV | | | ) | | | PTH - INTFC | | + + + + + + | CREATININE | 72Comment: Performed by | mg/dL | [facility] | | | URINE | [facility],[address] | | REG UNIV | | | CONCENTRATI | Marlon Bustos, [facility],[place] | | PTH - INTFC | | | [place] | [id number] | | | | | | [phone]. | | | | | | Kaleb neely MD, | | | | | | Lab. Director | | | | + + + + + + | URINE | Not Provided | hr | [facility] | | | COLLECTION | | | REG UNIV | | | | | | PTH - INTFC | | + + + + + + | URINE | Not Provided | mL | [facility] | | | VOLUME(REF) | | | REG UNIV | | | | | | PTH - INTFC | | + + + + + + + + | Specimen | + + | Urine - Urine | | (substance) | + + + + + + + | Performing | Address | City/State/Zipcode | Phone Number | | Organization | | | | + + + + + | [facility] | [address] | [place], [place] | | | UNIV PTH - INTFC | | [address] | | + + + + + PORPHYRINS AND PORPHOBILINOGEN, URINE (03/14/2018 4:29 PM PST) + + + + + + | Component | Value | Ref Range | Performed | Pathologist | | | | | At | Signature | + + + + + + | UROPORPHYRI | 3 | 0 - 4 umol/mol | [facility] | | | N, URINE | | PLASTERER APPRENTICE | REG UNIV | | | ([facility]) | | | PTH - INTFC | | + + + + + + | HEPTACARBOX | <1 | 0 - 2 umol/mol | [facility] | | | YLATE | | PLASTERER APPRENTICE | REG UNIV | | | PORPHYRIN(A | | | PTH - INTFC | | | RUP) | | | | | + + + + + + | COPROPORPHY | 3 | 0 - 6 umol/mol | [facility] | | | RIN I | | PLASTERER APPRENTICE | REG UNIV | | | | | | PTH - INTFC | | + + + + + + | COPROPORPHY | 10 | 0 - 14 umol/mol | [facility] | | | RIN III | | PLASTERER APPRENTICE | REG UNIV | | | | | | PTH - INTFC | | + + + + + + | CREATININE, | Not Applicable | 700 - 1600 mg/d | [facility] | | | UR(REFERRAL | | | REG UNIV | | | ) | | | PTH - INTFC | | + + + + + + | CREATININE | 75 | mg/dL | [facility] | | | URINE | | | REG UNIV | | | CONCENTRATI | | | PTH - INTFC | | | ON | | | | | + + + + + + | URINE | Not Provided | hr | [facility] | | | COLLECTION | | | REG UNIV | | | | | | PTH - INTFC | | + + + + + + | URINE | Not Provided | mL | [facility] | | | VOLUME(REF) | | | REG UNIV | | | | | | PTH - INTFC | | + + + + + + | PORPHOBILIN | 3.7 | 0.0 - 8.8 | [facility] | | | OGEN, URINE | | umol/L | REG UNIV | | | | | | PTH - INTFC | | + + + + + + | PORPHOBILIN | Not Applicable | 0.0 - 11.0 | [facility] | | | OGEN, URINE | | umol/d | REG UNIV | | | (24-HOUR) | | | PTH - INTFC | | + + + + + + | PORPHYRIN | NegativeComment: | | [facility] | | | INTERPRETAT | INTERPRETIVE | | REG UNIV | | | ION | INFORMATION: Porphyrins, | | PTH - INTFC | | | | Fractionation and | | | | | | Quantitation, | | | | | | | | | | | | Urine Results | | | | | | are normalized to | | | | | | creatinine concentration | | | | | | and reported as a ratio | | | | | | of amounts (micromoles | | | | | | of porphyrin/moles of | | | | | | creatinine). Test | | | | | | developed and | | | | | | characteristics | | | | | | determined by [facility] | | | | | | [facility]. See | | | | | | Compliance Statement B: | | | | | | Seakeeper/CSPerformed | | | | | | by [facility],[address] | | | | | | [address]ust[address], [facility],[place] | | | | | | [address] | | | | | | [phone]. | | | | | | Kaleb neely MD, | | | | | | Lab. Director | | | | + + + + + + + + | Specimen | + + | Urine - Urine | | (substance) | + + + + + + + | Performing | Address | City/State/Zipcode | Phone Number | | Organization | | | | + + + + + | [facility] | [address] | [place], [place] | | | UNIV PTH - INTFC | | [phone] | | + + + + + CBC AND AUTO DIFF (03/14/2018 4:26 PM PST) + + + + + + | Component | Value | Ref Range | Performed | Pathologist | | | | | At | Signature | + + + + + + | WHITE CELL | 10.53 | 3.50 - 10.80 | [facility] | | | COUNT | | K/cu mm | LABORATORY | | | | | | SERVICES, | | | | | | CORE | | + + + + + + | RED CELL | 4.75 | 4.00 - 5.20 | [facility] | | | COUNT | | M/cu mm | LABORATORY | | | | | | SERVICES, | | | | | | CORE | | + + + + + + | HEMOGLOBIN | 14.0 | 12.0 - 16.0 | [facility] | | | | | g/dL | LABORATORY | | | | | | SERVICES, | | | | | | CORE | | + + + + + + | HEMATOCRIT | 41.2 | 36.0 - 46.0 % | [facility] | | | | | | LABORATORY | | | | | | SERVICES, | | | | | | CORE | | + + + + + + | MCV | 86.7 | 80.0 - 100.0 fL | [facility] | | | | | | LABORATORY | | | | | | SERVICES, | | | | | | CORE | | + + + + + + | MCHC | 34.0 | 32.0 - 36.0 | [facility] | | | | | g/dL | LABORATORY | | | | | | SERVICES, | | | | | | CORE | | + + + + + + | RDW SD | 40.5 | 35.1 - 46.3 fL | [facility] | | | | | | LABORATORY | | | | | | SERVICES, | | | | | | CORE | | + + + + + + | PLATELET | 382 | 150 - 400 K/cu | [facility] | | | COUNT | | mm | LABORATORY | | | | | | SERVICES, | | | | | | CORE | | + + + + + + | MPV | 10.2 | 9.7 - 12.3 fL | [facility] | | | | | | LABORATORY | | | | | | SERVICES, | | | | | | CORE | | + + + + + + | NRBC% | 0.0 | 0.0 - 0.3 % | [facility] | | | | | | LABORATORY | | | | | | SERVICES, | | | | | | CORE | | + + + + + + | NRBC# | 0.00 | 0.00 - 0.02 | [facility] | | | | | K/cu mm | LABORATORY | | | | | | SERVICES, | | | | | | CORE | | + + + + + + | NEUTROPHIL | 56.6 | 50.0 - 70.0 % | [facility] | | | % | | | LABORATORY | | | | | | SERVICES, | | | | | | CORE | | + + + + + + | LYMPHOCYTE | 34.8 | 18.0 - 42.0 % | [facility] | | | % | | | LABORATORY | | | | | | SERVICES, | | | | | | CORE | | + + + + + + | MONOCYTE % | 4.7 | 3.5 - 9.0 % | [facility] | | | | | | LABORATORY | | | | | | SERVICES, | | | | | | CORE | | + + + + + + | EOS % | 3.4 (H) | 1.0 - 3.0 % | [facility] | | | | | | LABORATORY | | | | | | SERVICES, | | | | | | CORE | | + + + + + + | BASO % | 0.1 | 0.0 - 2.0 % | [facility] | | | | | | LABORATORY | | | | | | SERVICES, | | | | | | CORE | | + + + + + + | IG% | 0.4Comment: Increased | 0.0 - 1.0 % | [facility] | | | | immature granulocytes | | LABORATORY | | | | (IG) define a left | | SERVICES, | | | | shift. Immature | | CORE | | | | granulocytes (IG) are an | | | | | | automated count of | | | | | | metamyelocytes, | | | | | | myelocytes and | | | | | | promyelocytes. Bands | | | | | | are not included in the | | | | | | IG count. Bands are | | | | | | included in the | | | | | | neutrophil count. | | | | + + + + + + | NEUTROPHIL | 5.96 | 1.80 - 7.70 | [facility] | | | # | | K/cu mm | LABORATORY | | | | | | SERVICES, | | | | | | CORE | | + + + + + + | LYMPHOCYTE | 3.66 | 1.00 - 4.80 | [facility] | | | # | | K/cu mm | LABORATORY | | | | | | SERVICES, | | | | | | CORE | | + + + + + + | MONOCYTE # | 0.50 | 0.10 - 0.90 | [facility] | | | | | K/cu mm | LABORATORY | | | | | | SERVICES, | | | | | | CORE | | + + + + + + | EOS # | 0.36 | 0.00 - 0.50 | [facility] | | | | | K/cu mm | LABORATORY | | | | | | SERVICES, | | | | | | CORE | | + + + + + + | BASO # | 0.01 | 0.00 - 0.10 | [facility] | | | | | K/cu mm | LABORATORY | | | | | | SERVICES, | | | | | | CORE | | + + + + + + | IG# | 0.04 | 0.00 - 0.10 | [facility] | | | | | K/cu mm | LABORATORY | | | | | | SERVICES, | | | | | | CORE | | + + + + + + + + | Specimen | + + | Blood - Blood | | (substance) | + + + + + | Narrative | Performed At | + + + | Increased immature granulocytes (IG) define a left shift. | [facility] | | Immature granulocytes (IG) are an automated count of metamyelocytes, | LABORATORY | | myelocytes and promyelocytes. Bands are not included in the IG count. | SERVICES, CORE | | Bands are included in the neutrophil count. | | + + + + + + + + | Performing | Address | City/State/Zipcode | Phone Number | | Organization | | | | + + + + + | [facility] | [address] | [place] [address] | | | SERVICES, CORE | [address] | | | + + + + + VITAMIN D, 25-HYDROXY, SERUM (03/14/2018 4:26 PM PST) + + + + + + | Component | Value | Ref Range | Performed | Pathologist | | | | | At | Signature | + + + + + + | VITAMIN D | 18.6 (L) | 30 - 80 ng/mL | [facility] | | | 25 HYDROXY | | | LABORATORY | | | | | | SERVICES, | | | | | | CORE | | + + + + + + + + | Specimen | + + | Blood - Blood | | (substance) | + + + + + | Narrative | Performed At | + + + | Reference Interval: 0-18years: Deficiency: <20 ng/mL | [facility] | | Optimum level: >or=20 ng/mL | LABORATORY | | >18years: Deficiency: <20 | SERVICES, CORE | | ng/mL Insufficiency: 20-29 ng/mL | | | Optimum Level: 30-80 ng/mL High: | | | 81-150 ng/ml Toxic: >150 ng/mL | | + + + + + + + + | Performing | Address | City/State/Zipcode | Phone Number | | Organization | | | | + + + + + | [facility] | [address] | [place] [address] | | | SERVICES, CORE | [address] | | | + + + + + COMPLETE METABOLIC SET (NA,K,CL,CO2,BUN,CREAT,GLUC,CA,AST,ALT,BILI TOTAL,ALK PHOS,ALB,PROT TOTAL) (03/14/2018 4:26 PM PST) + +---------+ + + + | Component | Value | Ref Range | Performed | Pathologist | | | | | At | Signature | + +---------+ + + + | GLUCOSE, | 97 | 70 - 99 mg/dL | [facility] | | | PLASMA | | | LABORATORY | | | (LAB) | | | SERVICES, | | | | | | CORE | | + +---------+ + + + | BUN, PLASMA | 10 | 6 - 20 mg/dL | [facility] | | | (LAB) | | | LABORATORY | | | | | | SERVICES, | | | | | | CORE | | + +---------+ + + + | CREATININE | 0.67 | 0.60 - 1.10 | [facility] | | | PLASMA | | mg/dL | LABORATORY | | | (LAB) | | | SERVICES, | | | | | | CORE | | + +---------+ + + + | EGFR | >60 | >60 mL/min | [facility] | | | - | | | LABORATORY | | | CROATIAN | | | SERVICES, | | | | | | CORE | | + +---------+ + + + | EGFR NON | >60 | >60 mL/min | [facility] | | | -ALFIE | | | LABORATORY | | | RICAN | | | SERVICES, | | | | | | CORE | | + +---------+ + + + | SODIUM, | 137 | 136 - 145 | [facility] | | | PLASMA | | mmol/L | LABORATORY | | | (LAB) | | | SERVICES, | | | | | | CORE | | + +---------+ + + + | POTASSIUM, | 4.0 | 3.4 - 5.0 | [facility] | | | PLASMA | | mmol/L | LABORATORY | | | (LAB) | | | SERVICES, | | | | | | CORE | | + +---------+ + + + | CHLORIDE, | 105 | 97 - 108 mmol/L | [facility] | | | PLASMA | | | LABORATORY | | | (LAB) | | | SERVICES, | | | | | | CORE | | + +---------+ + + + | TOTAL CO2, | 26 | 21 - 32 mmol/L | [facility] | | | PLASMA | | | LABORATORY | | | (LAB) | | | SERVICES, | | | | | | CORE | | + +---------+ + + + | CALCIUM, | 8.9 | 8.6 - 10.2 | [facility] | | | PLASMA | | mg/dL | LABORATORY | | | (LAB) | | | SERVICES, | | | | | | CORE | | + +---------+ + + + | CALCIUM(ALB | 8.6 | 8.6 - 10.2 | [facility] | | | CORRECTED) | | mg/dL | LABORATORY | | | | | | SERVICES, | | | | | | CORE | | + +---------+ + + + | BILIRUBIN | 0.4 | 0.3 - 1.2 mg/dL | [facility] | | | TOTAL | | | LABORATORY | | | | | | SERVICES, | | | | | | CORE | | + +---------+ + + + | TOTAL | 7.6 | 6.4 - 8.2 g/dL | [facility] | | | PROTEIN, | | | LABORATORY | | | PLASMA | | | SERVICES, | | | (LAB) | | | CORE | | + +---------+ + + + | ALBUMIN, | 4.4 | 3.5 - 4.7 g/dL | [facility] | | | PLASMA | | | LABORATORY | | | (LAB) | | | SERVICES, | | | | | | CORE | | + +---------+ + + + | ALK PHOS | 79 | 42 - 98 U/L | [facility] | | | | | | LABORATORY | | | | | | SERVICES, | | | | | | CORE | | + +---------+ + + + | AST(SGOT) | 12 | <=41 U/L | [facility] | | | | | | LABORATORY | | | | | | SERVICES, | | | | | | CORE | | + +---------+ + + + | ALT (SGPT) | 28 | <=60 U/L | [facility] | | | | | | LABORATORY | | | | | | SERVICES, | | | | | | CORE | | + +---------+ + + + | ANION GAP | 6 | 4 - 11 mmol/L | [facility] | | | | | | LABORATORY | | | | | | SERVICES, | | | | | | CORE | | + +---------+ + + + | ANION | 5 | 4 - 11 mmol/L | [facility] | | | GAP(ALB | | | LABORATORY | | | CORRECTED) | | | SERVICES, | | | | | | CORE | | + +---------+ + + + | POTASSIUM | No Hemo | | [facility] | | | CMNT | | | LABORATORY | | | | | | SERVICES, | | | | | | CORE | | + +---------+ + + + | BILI T CMNT | No Hemo | | [facility] | | | | | | LABORATORY | | | | | | SERVICES, | | | | | | CORE | | + +---------+ + + + | AST CMNT | No Hemo | | [facility] | | | | | | LABORATORY | | | | | | SERVICES, | | | | | | CORE | | + +---------+ + + + + + | Specimen | + + | Blood - Blood | | (substance) | + + + + + | Narrative | Performed At | + + + | GFR is estimated using the MDRD equation recommended by the | [facility] | | National Kidney Disease Education Program. Estimated GFR | LABORATORY | | Interpretive Information: <60 mL/min/1.73 sq m | SERVICES, CORE | | Chronic Kidney Disease <15 mL/min/1.73 sq m | | | Kidney Failure Estimated GFR greater than 60 mL/min/1.73 sq m is of | | | limited clinical value. The MDRD equation is not valid in the | | | following situations: - Patients under 18 years of age - Severe | | | malnutrition or obesity - Vegetarian diet - Rapidly changing kidney | | | function - Amputees, paraplegics, or other muscle-wasting diseses | | + + + + + + + + | Performing | Address | City/State/Zipcode | Phone Number | | Organization | | | | + + + + + | [facility] | [address] | [place] [address] | | | SERVICES, CORE | [address] | | | + + + + + FERRITIN (03/14/2018 4:26 PM PST) + + + + + + | Component | Value | Ref Range | Performed | Pathologist | | | | | At | Signature | + + + + + + | FERRITIN | 62Comment: Male and | 50 - 200 ng/mL | [facility] | | | | Female >18 years: | | LABORATORY | | | | <20 ng/mL: | | SERVICES, | | | | Consistant with iron | | CORE | | | | deficiency 21-50 | | | | | | ng/mL: Possible | | | | | | iron deficiency 51-99 | | | | | | ng/mL: Iron | | | | | | deficiency unlikely | | | | | | unless inflammation | | | | | | present or | | | | | | patient | | | | | | >65 years of age | | | | | | 100-200 ng/mL: | | | | | | Normal, not consistent | | | | | | with iron deficiency | | | | | | >200 ng/mL: If | | | | | | transferrin saturation | | | | | | >45%, consider | | | | | | hemochromatosis | | | | + + + + + + + + | Specimen | + + | Blood - Blood | | (substance) | + + + + + + + | Performing | Address | City/State/Zipcode | Phone Number | | Organization | | | | + + + + + | [facility] | [address] | [place] [address] | | | SERVICES, [place]ONATHAN | NATASHA ALLEN | | | + + + + + documented in this encounter Visit Diagnoses + + | Diagnosis | + + | RLS (restless legs syndrome) Restless legs syndrome (RLS) | + + | Abdominal pain, unspecified abdominal location | + + | Myoclonus | + + | Hypovitaminosis D Unspecified vitamin D deficiency | + + documented in this encounter"
--- OUTSIDE RECORDS SUMMARY | ~2018-12-26 | XMS | Encounter Summary ---
Demographics + + + | Address | [address] | | | [place] [address] | + + + | Home Phone | | + + + | Preferred Language | Unknown | + + + | Marital Status | | + + + | Orthodox Affiliation | NON | + + + [...] Team Providers + +------+ + | Care Pad Extraction Tender Name | Role | Phone | + +------+ + | Melvina TalleyP | PCP | | + +------+ + Reason for Visit Speech Therapy (Routine) +--------+--------+ + + + + | Status | Reason | Specialty | Diagnoses / | Referred By | Referred To | | | | | Procedures | Contact | Contact | +--------+--------+ + + + + | Closed | | Speech | Diagnoses | Gloria, | Ent Speech | | | | Therapy | Dysphagia, | Lucy | [facility] [address] | | | | | unspecified | DAVEY Ohara | [address] | | | | | type | [address] | [place] | | | | | Procedures | Ave | Mailcode: | | | | | CONSULT TO | [facility], [place] | [address] | | | | | ENT SPEECH | [address] | Physician's | | | | | THERAPY | Phone: | Pavilion | | | | | | [phone] | [place], [place] | | | | | | Fax: | [address] | | | | | | [phone] | Phone: | | | | | | | [phone] | | | | | | | Fax: | | | | | | | [phone] | +--------+--------+ + + + + Encounter Details +--------+ + + + + | Date | Type | Department | Care Team | Description | +--------+ + + + + | 03/26/ | Diagnostic | Otolaryngology | Matthias Wright, | | | 2017 | Visit | Speech Therapy | PHARMACIST AIDE [address] | | | | | Services at [facility] | [address] | | | | | [address] | [place] [address] | | | | | Ceci Christopher Mailcode: | [phone] | | | | | [address] Physician's | | | | | | [place], | | | | | | [place] [address] | | | | | | [phone] | | | +--------+ + + + [...] documented as of this encounter Progress Notes Matthias Wright, IVÁN - 03/26/2016 11:00 AM PSTFormatting of this note might be different fro m the original. Clinic: [facility] Referring Physician: Lucy Castro PA-C [address] [place] [address] PCP: TAMEKA Mistry Medical Diagnosis: No diagnosis found. Date of Onset for This Diagnosis: 02/16/16 (referral) Treatment Diagnosis: No diagnosis found. Start of Care Date: 03/26/16 Duration of session: 60 minutes SUBJECTIVE: Aniket Kendall is a 35 y.o. female patient of Lucy Castro PA-C en for evaluation of her swallowing complaints. DESCRIPTION OF PROBLEM: The patient s dysphagia symptoms include food getting stuck in th e throat, dry mouth, difficulty swallowing pills (they dissolve in the throat), some throat pain, nasal regurgitation, reflux (controlled), the sensation of something stuck in the thro at, increased mealtimes, some chest/rib pain. She also reports some deliberate weight loss. The patient denies choking, change in respiratory status, regurgitation of foods and food a voidance. Per referral notes of 10/19/15: HPI: Aniket Kendall is a 35 y.o. female who presents to the [facility] for foll ow up of Chronic rhinosinusitis and S/P Sinus Surgery. She is s/p sinus surgery (03/01/2015) with Dr. Biggs. Last seen 07/27/2015. Current symptoms include foul odor in her nose, globus an d nasal tenderness. She describes occasional dysphagia with solids and liquids. There is an occasional stabbing pain associated with drinking water and turning her head to the side. Sy mptoms began 3 months ago. Symptom severity is moderate. Improvement occurred with Nothing. ASSESSMENT: Chronic rhinosinusitis and dysphagia. PLAN: We've discussed issues and options today. The risks, benefits and alternatives were d iscussed and questions answered. She has elected to proceed with referral to laryngology giv en her persistent symptoms of dysphagia and new onset odynophagia associated with liquids. T hese are particularly concerning in a patient who is a current smoker. She will return for f ollow up in 3 month(s) or sooner as needed. Past Medical History: Diagnosis Date CKD (chronic kidney disease) Fibromyalgia Fibromyalgia 2004 GERD (gastroesophageal reflux disease) HTN (hypertension) PONV (postoperative nausea and vomiting) Past Surgical History Procedure Laterality Date Egd (esophagogastroduodenoscopy) Bilateral tubal ligation Tonsillectomy Sinus surgery march 01, 2015 Tubal ligation WEIGHT: Pt reports deliberate weight loss. Wt Readings from Last 3 Encounters: 03/26/16 87.5 kg (193 lb) 03/18/15 92.5 kg (204 lb) 03/01/15 93 kg (205 lb) DIETARY STATUS: Current diet: The patient is currently taking regular food and any liquids by mouth. The patient does not have a feeding tube. COMMUNICATION/SPEECH STATUS: The patient communicates verbally. Speech quality was noted to be normal and Always understandable (PSS-Speech 100). Voice quality was clear. In terms of respiration, the patient is breathing easily at rest. ORAL-MOTOR EXAMINATION: All movements are WNL. MODIFIED BARIUM SWALLOW STUDY: Prior to starting the study, the patient's name and were verified and she was observed in the lateral and anteroposterior planes while standing. Con sistencies/materials administered included: thin liquids, nectar thick liquids, honey, puddi ng, barium pill, fruit cocktail mixed with barium and navin cracker coated with barium. The patient tolerated the exam well. Oral Phase: Oral bolus control and preparation were normal. The patient is able to hold, m anipulate and transit the bolus in a timely and efficient manner. Pharyngeal Phase: Initiation of the pharyngeal phase was timely. All normal movements were noted to occur. There was no penetration, aspiration or significant residue for any consist ency. In the allyson-posterior view, the swallow was noted to be normally symmetric. Esophageal Phase: Cricopharyngeal function was noted to be mildly reduced. The barium tabl et transited through this area without significant difficulty. Some dysmotility was noted. Augustin ken see the radiologist s report for additional information. PATIENT EDUCATION & TREATMENT: Subsequent to the examination the findings were reviewed wit h the patient and the Voice Clinic team. We discussed possible prophylactic medical manageme nt of GERD as well as smoking cessation to see if this causes a reduction in symptoms prior to additional work-up, if needed. ASSESSMENT: 1. Throat pain, globus and dysphagia for pills/solids. 2. Normal oropharyngeal swallowing function. 3. Prominent postcricoid fullness. 4. Per Radiologist, some esophageal dysmotility. History of GERD. 5. Dysphonia. PLAN: Pt to undergo nasoendoscopy today. No plans for further follow-up regarding oropharyn geal dysphagia. Will defer to ENT and PCP regarding other issues (e.g. GERD management and s moking cessation). Matthias Wright, PhD, CCC-PHARMACIST AIDE [facility] [employer] Dept. of Otolaryngology, [address] [place] [address] documented in this en counter Plan of Treatment Not on filedocumented as of this encounter Visit Diagnoses Not on filedocumented in this encounter"
--- OUTSIDE RECORDS SUMMARY | ~2018-12-26 | XMS | Encounter Summary ---
Demographics + + + | Address | [address] | | | [place] [address] | + + + | Home Phone | | + + + | Preferred Language | Unknown | + + + | Marital Status | | + + + | Alevism Affiliation | NON | + + + | Race | White | + + + | Ethnic Group | Not or | + + + Author + + + | Author | [facility] | + + + | Organization | [facility] | + + + | Address [...] Team Providers + +------+ + | Care Credit Professional Name | Role | Phone | [...] | | | | | sinusitis | [address] | and Healing, | | | | | Chronic | | [address], | | | | | frontal | | 3rd Floor | | | | | sinusitis | | [place], [place] | | | | | Chronic | | [address] | | | | | sphenoidal | | Phone: | | | | | sinusitis | | [phone] | | | | | Procedures | | Fax: | | | | | CT SINUS WO | | [phone] | | | | | CONTRAST | | | | | | | ROUTINE | | | | | | | (LANDMARX | | | | | | | PROTOCOL) | | | | | | | MD CT | | | | | | [...] | | | | nose and | INTERACTIVE MEDIA MARKETING SPECIALIST [address] | | | | | nasal sinus | | [place], [place] | | | | | | [id number] | [address] | | | | | | [place], | | | | | | | [place] | | | | | | | [address] | | | | | | | Phone: | | | | | | | [phone] | | | | | | | Fax: | | | | | | | [phone] | | +--------+--------+ + + + + Encounter Details +--------+---------+ + + + | Date | Type | Department | Care Team | Description | +--------+---------+ + + + | 02/03/ | Office | [facility] | Haroon Biggs, | Chronic ethmoidal | | 2014 | Visit | Center at [facility] [address] | sinusitis (Primary | | | | [address] | | Dx); Chronic | | | | Mailcode: CH5E | | maxillary sinusitis; | | | | [facility] | | Chronic frontal | | | | and Healing, | | sinusitis; Chronic | | | | Building [address] | | sphenoidal sinusitis | | | | Floor [place], [place] | | | | | | [address] | | | | | | [phone] | | | +--------+---------+ + + + [...] Biggs MD,MPH - 02/03/2015 8:21 AM PST [facility] HPI: Aniket Kendall is a 34 y.o. female who [facility] for Chronic rhinosinusitis s/p surgery. [...] prescriptions provided. Haroon Biggs M.D., M.P.H. Fellow, [facility] Instructor, Rhinology and Sinus Surgery Department of Otolaryngology/Head and Neck Surgery [email or web address] documented in this encounter Plan of Treatment Not on filedocumented as of this encounter Procedures + +--------+ + + + | Procedure Name | Priori | Date/Time | Associated Diagnosis | Comments | | | ty | | | | + +--------+ + + + | MD NASAL | Routin | 02/03/2015 | Chronic [...] | | | | | of fluid levels. Soft | | | | | | tissues: Unremarkable | | | | | | Visualized brain and | | | | | | skull: Unremarkable. | | | | | | Orbits: Globes | | | | | | unremarkable. No | | | | | [...] Final/Electronically | | | | | | signed / LAYO SANCHEZ | | | | | | 02/03/2015 12:20 PM | | | | + + [...]
--- OUTSIDE RECORDS SUMMARY | ~2018-12-26 | XMS | Encounter Summary ---
Demographics + + + | Address | [address] | | | [place] [address] | + + + | Home Phone | | + + + | Preferred Language | Unknown | + + + | Marital Status | | + + + | Religion Affiliation | NON | + + + | Race | White | + + + | Ethnic Group | Not or | + + + Author + + + | Author | [facility] | + + + | Organization | [facility] | + + + | Address [...] Team Providers + +------+ + | Care Cyber Security Manager Name | Role | Phone | + +------+ + | Melvina TalleyP | PCP | | + +------+ + Encounter Details +--------+ + + + + | Date | Type | Department | Care Team | Description | +--------+ + + + + | 05/07/ | MyChart | Neurology at | Keon Gerber, | Vitamin D | | 2019 | Encounter | [facility] & | [address] | | | | | [address] | [place], [place] | | | | | [address] Mailcode: | [address] | | | | | [facility] | [phone] | | | | | Health and Healing, | | | | | | [facility] | | | | | | [place], [place] | | | | | | [address] | | | | | | [phone] | | | +--------+ + + + [...]
--- OUTSIDE RECORDS SUMMARY | ~2018-12-26 | XMS | Encounter Summary ---
Demographics + + + | Address | [address] | | | [place] [address] | + + + | Home Phone | | + + + | Preferred Language | Unknown | + + + | Marital Status | | + + + | Baptism Affiliation | NON | + + + | Race | White | + + + | Ethnic Group | Not or | + + + Author + + + | Author | [facility] | + + + | Organization | [facility] | + + + | [...] Team Providers + +------+ + | Care Adoption Agent Name | Role | Phone | + +------+ + | Unknown | PCP | Unavailable | + +------+ + Encounter Details +--------+ + + + + | Date | Type | Department | Care Team | Description | +--------+ + + + + | 12/03/ | Abstract | Digestive Health | Clinic, | | | 2018 | | [place] [facility] [address] | Gastroenterology | | | | | [address] | | | | | | Mailcode: [place] | | | | | | for Health and | | | | | | Healing, [address] | | | | | | [place], [place] | | | | | | [address] | | | | | | [phone] | | | +--------+ + + + [...]
--- OUTSIDE RECORDS SUMMARY | ~2018-12-26 | XMS | Encounter Summary ---
Demographics + + + | Address | [address] | | | [place] [address] | + + + | Home Phone | | + + + | Preferred Language | Unknown | + + + | Marital Status | | + + + | Methodist Affiliation | NON | + + + | Race | White | + + + | Ethnic Group | Not or | + + + Author + + + | Author | [facility] | + + + | Organization | [facility] | + + + | Address [...] Team Providers + +------+ + | Care Bag End Sewer Name | Role | Phone | + +------+ + | Melvina TalleyP | PCP | | + +------+ + Reason for Referral Consultation (Routine) +--------+--------+ + + + + | Status | Reason | Specialty | Diagnoses / | Referred By | Referred To | | | | | Procedures | Contact | Contact | +--------+--------+ + + + + | Closed | | Otolaryngolog | Diagnoses | Rafa, | Ent | | | | y | Globus | Carmelita [place]ara, | Laryngology | | | | | pharyngeus | PA-C [address] | [facility] [address] | | | | | Procedures | [address] | [address] | | | | | CONSULT TO | [place], | [place], [place] | | | | | ENT / | [place] | [address] | | | | | OTOLARYNGOLO | [address] | Phone: | | | | | [place] | Phone: | [phone] | | | | | | [phone] | Fax: | | | | | | Fax: | [phone] | | | | | | [phone] | | +--------+--------+ + + + + [...] | Closed | | Otolaryngolog | | No | Ent Sinus | | | | y | | Referring | [facility] [address] | | | | | | Provider Per | [address] | | | | | | Patient NO | Mailcode: | | | | | | REFERRING | [facility] | | | | | | PROVIDER PER | for Health | | | | | | PT | and Healing, | | | | | | | Building [address], | | | | | | | 5th Floor | | | | | | | [place], [place] | | | | | | | [address] | | | | | | | Phone: | | | | | | | [phone] | | | | | | | Fax: | | | | | | | [phone] | +--------+--------+ + + + + Encounter Details +--------+---------+ + + + | Date | Type | Department | Care Team | Description | +--------+---------+ + + + | 10/18/ | Office | [facility] | Carmelita Craig, | Globus pharyngeus | | 2015 | Visit | Center at [facility] [address] | PA-C [address] | (Primary Dx); | | | | [address] | Ave [place], [place] | Dysphagia, | | | | Mailcode: CH5E | [address] | unspecified type; | | | | [facility] | [phone] | Chronic ethmoidal | | | | and Healing, | | sinusitis; Chronic | | | | Building 1, 5th | | maxillary sinusitis | | | | Floor [place], [place] | | | | | | [address] | | | | | | [phone] | | | +--------+---------+ + + + [...] encounter Progress Notes Carmelita Craig PA-C - 10/19/2015 1:40 PM PDT [facility] HPI: Aniket Kendall is a 35 y.o. female who presents to the [facility] for fol low up of Chronic rhinosinusitis and S/P Sinus Surgery. She is s/p sinus surgery (03/01/2015) with Dr. Biggs. Last seen 07/27/2015. Current symptoms include foul odor in her nose, globus and nasal tenderness. She describes occasional dysphagia with solids and liquids. There is a n occasional stabbing pain associated with drinking water and turning her head to the side. Symptoms began 3 months ago. Symptom severity is moderate. Improvement occurred with Noth ing. She used Astelin for one month with no improvement. She is using saline irrigations. She serna s been taking omeprazole twice a day for the last 4 years. Her GERD symptoms are well contro lled on this regimen. She is a daily smoker, usually about 1 pack per day. Current Outpatient Prescriptions Medication Sig amitriptyline 25 mg oral tablet Take 1 tablet by mouth once daily at bedtime. azelastine (ASTELIN) 137 mcg (0.1 %) nasal aerosol,spray Instill 2 sprays into each nos tril two times daily. BUDESONIDE NASL Instill 0.6 mg in nose two times daily. Mix with neilmed sinus irrigati ons. Irrigate BID. Sent to [facility] cyclobenzaprine 10 mg oral tablet Take 10 [...] at bedtime as needed for slee p. PHYSICAL EXAM: Ear, nose, and throat exam reveals a pleasant, well-developed, well-nourish ed patient, in no apparent distress. Voice quality is within normal limits. External audit ory canals and tympanic membranes appear normal. Anterior rhinoscopy reveals mucosal edema. Oral cavity and oropharynx reveals healthy mucosa. The pharyngeal mucosa reveals no lesio ns. Lips and tongue are within normal limits. Neck reveals no mass, adenopathy, or thyromeg hermann. Salivary glands are normal to palpation. PROCEDURE: Diagnostic Nasal Endoscopy Anesthesia: Lidocaine 4% topical anesthetic Description of Procedure: A rigid endoscope was utilized to evaluate the sinonasal cavities , mucosa, sinus ostia and turbinates. Overall, signs of mucosal inflammation are noted. Max illary and ethmoid sinuses are patent bilaterally with no evidence of purulence or mucostasi s. ASSESSMENT: Chronic rhinosinusitis and dysphagia We've discussed issues and options today. The risks, benefits and alternatives were discus sed and questions answered. She has elected to proceed with referral to laryngology given h er persistent symptoms of dysphagia and new onset odynophagia associated with liquids. These are particularly concerning in a patient who is a current smoker. She will return for follo w up in 3 month(s) or sooner as needed. documented in this encounter Plan of Treatment Not on filedocumented as of this encounter Procedures + +--------+ + + + | Procedure Name | Priori | Date/Time | Associated Diagnosis | Comments | | | ty | | | | + +--------+ + + + | NC NASAL | Routin | 10/26/2015 | Dysphagia, | | | ENDOSCOPY,DX | e | 9:13 AM | unspecified type | | | | | PDT | Chronic ethmoidal | | | | | | sinusitis Chronic | | | | | | maxillary sinusitis | | + +--------+ + + + documented in this encounter Visit Diagnoses + + | Diagnosis | + + | Globus pharyngeus - Primary Conversion disorder | + + | Dysphagia, unspecified type | + + | Chronic ethmoidal sinusitis | + + | Chronic maxillary sinusitis | + + documented in this encounter"
--- OUTSIDE RECORDS SUMMARY | ~2018-12-26 | XMS | Encounter Summary ---
Demographics + + + | Address | [address] | | | [place] [address] | + + + | Home Phone | | + + + | Preferred Language | Unknown | + + + | Marital Status | | + + + | Confucianism Affiliation | NON | + + + | Race | White | + + + | Ethnic Group | Not or | + + + Author + + + | Author | [facility] | + + + | Organization | [facility] | + + + | [...] Team Providers + +------+ + | Care Lawn Mower Sharpener Name | Role | Phone | + +------+ + PCP | Unavailable | + +------+ + Encounter Details +--------+ + + + + | Date | Type | Department | Care Team | Description | +--------+ + + + + | 02/02/ | Results | Neurology Aging & | Isaac Long MD | | | 1997 | Only | [facility] | [address] | | | | | [address] | [place], [place] | | | | | [address] Mailcode: | [address] | | | | | [id number] Outpatient | [phone] | | | | | Clinic Building | | | | | | [place], [place] | | | | | | [address] | | | | | | [phone] | | | +--------+ + + + [...] | + +--------+ + + + | MRI BRAIN, 3 SEQ, [facility] | Routin | 02/02/1998 | | Results for this | | | e | 7:26 PM | | procedure are in the | | | | PST | | results section. | + +--------+ + + + documented in this encounter Results MRI BRAIN, 3 MALI BROUSSARD (02/02/1998 7:26 PM PST) + + + + + + | Component | Value | Ref Range | Performed | Pathologist | | | | | At | Signature | + + + + + + | MRI BRAIN, | Radiologist 1: DEWAYNE, | | | | | [facility] | ABELARDO Ramey, | | | | | | M.D.-Radiologist 2: | | | | | | CLARA HASTINGS, | | | | | | M.[facility] | | | | | | IMAGING STUDY OF THE | | | | | | BRAIN: 02/02/98 at 1926 | | | | | | hours. Dictated: | | | | | | 02/03/98 CLINICAL | | | | | | INDICATIONS: Seizures, | | | | | | rule out hippocampal | | | | | | sclerosis. COMPARISON: | | | | | | There are no films | | | | | | available for | | | | | | comparison. TECHNIQUE: | | | | | | Sagittal T1. Axial | | | | | | proton density fast spin | | | | | | echo, T2 fastspin echo. | | | | | | Coronal proton density | | | | | | fast spin echo, T2 fast | | | | | | spin echo,flare, fast | | | | | | spin echo IR. FINDINGS: | | | | | | The patient is slightly | | | | | | canted in the scanner, | | | | | | making directcomparison | | | | | | of hippocampi slightly | | | | | | difficult. Mild | | | | | | asymmetry of | | | | | | thehippocampi with the | | | | | | head of the left | | | | | | hippocampus slightly | | | | | | greater thanon the | | | | | | right. No signal | | | | | | abnormality within the | | | | | | hippocampi. Brain | | | | | | isotherwise normal with | | | | | | no mass lesions. | | | | | | Ventricles are normal | | | | | | withoutventriculomegaly. | | | | | | No extra-axial fluid | | | | | | collections. | | | | | | Normalintra-vascular | | | | | | flow voids. A small | | | | | | mucus retention cyst is | | | | | | present inthe inferior | | | | | | aspect of the left | | | | | | maxillary sinus. | | | | | | IMPRESSION: 1. Mild | | | | | | asymmetry of the | | | | | | hippocampi with the left | | | | | | greater than theright, | | | | | | particularly at the | | | | | | head. This is felt to be | | | | | | within normallimits. | | | | | | END OF IMPRESSION: | | | | + + + + + + + + | Specimen | + + | | + + + +---------+ + + | Performing | Address | City/State/Zipcode | Phone Number | | Organization | | | | + +---------+ + + | [facility] DEPARTMENT OF | | | | | RADIOLOGY | | | | + +---------+ + + documented in this encounter Visit Diagnoses Not on filedocumented in this encounter"
--- OUTSIDE RECORDS SUMMARY | ~2018-12-26 | XMS | Encounter Summary ---
Demographics + + + | Address | [address] | | | [place] [address] | + + + | Home Phone | | + + + | Preferred Language | Unknown | + + + | Marital Status | | + + + | Faith Affiliation | NON | + + + | Race | White | + + + | Ethnic Group | Not or | + + + Author + + + | Author | [facility] | + + + | Organization | [facility] | + + + | [...] Team Providers + +------+ + | Care Cafe Manager Name | Role | Phone | + +------+ + | Melvina TalleyP | PCP | | + +------+ + Encounter Details +--------+ + + + + | Date | Type | Department | Care Team | Description | +--------+ + + + + | 08/23/ | MyChart | [facility] | Carmelita Craig, | RE: Been using | | 2016 | Encounter | Center at [facility] [address] | PA-C [address] | Zoltan, not better | | | | [address] | [address] [place], [place] | | | | | Mailcode: [id number] | [address] | | | | | [facility] | [phone] | | | | | and [address], | | | | | | Building [address]th | | | | | | Floor [place], [place] | | | | | | [address] | | | | | | [phone] | | | +--------+ + + + [...]
--- OUTSIDE RECORDS SUMMARY | ~2018-12-26 | XMS | Encounter Summary ---
Demographics + + + | Address | [address] | | | [place] [address] | + + + | Home Phone | | + + + | Preferred Language | Unknown | + + + | Marital Status | | + + + | Yarsanism Affiliation | NON | + + + | Race | White | + + + | Ethnic Group | Not or | + + + Author + + + | Author | [facility] | + + + | Organization | [facility] | + + + | Address [...] Team Providers + +------+ + | Care Manager Wholesale Name | Role | Phone | + +------+ + | Melvina Talley | PCP | | + +------+ + Reason for Visit + + + | Reason | Comments | + + + | Follow-up visit | | + + + Office Visit - E/M Services (Routine) +--------+--------+ + + + + | Status | Reason | Specialty | Diagnoses / | Referred By | Referred To | | | | | Procedures | Contact | Contact | +--------+--------+ + + + + | Closed | | Neurology | Diagnoses | Non-[facility] | [facility] | | | | | Other | Epic Dept | [address] | | | | | generalized | | [address] | | | | | epilepsy and | | Mailcode: | | | | | epileptic | | [facility] | | | | | syndromes, | | for Health | | | | | not | | and Healing, | | | | | intractable, | | [address], | | | | | without | | 8th Floor | | | | | status | | [place], [place] | | | | | epilepticus | | [address] | | | | | Procedures | | Phone: | | | | | AL NEW | | [phone] | | | | | PATIENT | | Fax: | | | | | LEVEL V AL | | [phone] | | | | | EST PATIENT | | | | | | | LEVEL V | | | +--------+--------+ + + + + Encounter Details +--------+---------+ + + + | Date | Type | Department | Care Team | Description | +--------+---------+ + + + | 03/14/ | Office | Neurology at | Keon Gerber, | Myoclonus (Primary | | 2019 | Visit | [place] [facility] | [address] | Dx); RLS (restless | | | | Healing [address] | [place], [place] | legs syndrome); | | | | [address] Mailcode: | [address] | Abdominal pain, | | | | [facility] | [phone] | unspecified | | | | Health and Healing, | | abdominal location; | | | | Building [address], | | Hypovitaminosis D | | | | Floor [place], [place] | | | | | | [address] | | | | | | [phone] | | | +--------+---------+ + + + [...] Pressure | 144/80 | 03/14/2018 2:45 PM | | | | | PST | | + + + + + | Pulse | 72 | 03/14/2018 2:45 PM | | | | | PST [...] kg (198 lb) | 03/14/2018 2:45 PM | | | | | PST | | + + + + + | Height | - | - | | + + + + + | Body Mass Index | 35.07 | 08/17/2016 1:47 PM | | | | | PDT | | + + + + + documented in this encounter Patient Instructions Patient Instructions Keon Gerber MD - 03/14/2018 2:35 PM PSTA syndrome to consider is familial paroxysmal nonkinesigenic dyskinesia; the genetic testing is expensive and I'm not convinced however to justify testing this 1. Please go to the lab for ferritin (iron), porphyria labs 2. Reasonable to increase Keppra to 750 mg twice a day - From 500 mg twice a day - Monitor for abnormal side effects, agitation 3. Please obtain MRI discs/actual imaging for review as I couldn't see these 4. Return to clinic in 5 months 4 :03 PM PST documented in this encounter Progress Notes Chelle Mckeon RN - 03/14/2018 2:35 PM [facility] M RI from 05/06/2013 to [facility] impaxElectronically signed by Chelle Mckeon RN at 9 10:46 AM Keon Navarro MD - 03/14/2018 2:35 PM PST [facility] Consultation Visit Today's Date: 03/14/2018 Referring Physician: No Referring Provider Per Patient Primary Care Physician: TAMEKA Mistry Reason for Referral: jerking movements, question of MS diagnosis Display Progress Note in MyChart: No ID: Aniket Sweeney is a 37 y.o. right handed woman who is referred for neurological cons ultation for evaluation of Jerking movements. The history is obtained from the patient. 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 She notes that she started having jerking movement which has been present since 2013. She w as started on Keppra 500 mg bid after seeing Dr Bertrand in the ED on 12/09/217 and she states t hat the jerking has improved; was occurring >100x a day and now is having half this time. Sh dejuan has been having intermittent "spasms" of her left foot, leg, thigh and also clinching of h er right jaw. She states that the twitching episodes; particularly in her left leg will last seconds but come in clusters; she states that there is an intermittent buzzing in her left leg which lasts a few seconds at a time. She states that there is a crawling feeling which i s similar to restless leg syndrome in the evening. She states that this feels like crawling in her legs; she trialed ropinirole 1 mg qhs which she states hasn't helped her symptoms. Fo ot or hand will "clinch" or pose in an awkward way, remain that way for sometimes < 1 minute and sometimes up to 10 minutes then release; this may occur 1-2x a day. She has had an extensive neurologic work-up in the past which includes 4x lumbar punctures, MRIs of brain and spine (most recently 3 years ago), and EEG monitoring. Her seizures were described as jerking and spasms of her left hand, leg, and foot without alteration of awaren ess. She has followed multiple neurologists; saw Dr Nguyen Prince at [facility] in 2013 most recently who suspected myoclonus. Per patient, she had an EEG which captured t hem and was told that the EEG was normal (work-up done in [place], [place]). She was not started on medications, but referred to [facility] neurology for further evaluation/treatment options. She saw Neurology at [facility]; Dr Hauser in 02/2015 who suspected migraines and recommended some supplements to consider for migraine prophylaxis. She started amitriptyline 25 mg qhs and sh e states that this was ineffective; had reportedly been on that for many years with no benef it. She does recount right sided headache described aching; which will last days; denies colt tophobia, phonophobia, nausea/vomiting. She also reports stabbing pain in her right eye whic h lasts 20 minutes at a time; once a week. She denies congestion or tearing out of her right eye. She states that her step-father has environmental induced parkinson's disease (pesticide us e in [place]) and she is concerned she has this syndrome as they lived there. She notes that her brother and sister have similar symptoms and she is concerned she may have parkinso n's disease. She endorses a constellation of multiple systems that are failing and attribute s this to an undiagnosed condition; potentially autoimmune. She states that she was diagnose d with Celiac disease based on an antibody (not available) and this diagnosis was removed af ter she had a colonoscopy. She reports multiple family members that were diagnosed with brai n aneurysms however none of them are first degree relatives. Data: *MRI brain w/o (02/02/1998): 1. Mild asymmetry of the hippocampi with the left greater th an the right, particularly at the head. This is felt to be within normal limits. *MRI brain w/o (05/06/2013): 1.Mild scattered focal FLAIR signal abnormalities within th e bifrontal white matter that are nonspecific. Findings may be on the basis seizures, migrai ne headaches, chronic small vessel ischemic change, trauma, demyelinating process, Lyme's di sease, or other infectious or inflammatory process. 2.Mucus retention cyst in the left m axillary sinus. 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 Review of Systems: General: No constitutional symptoms of fevers, chills, weight loss, +night sweats. Neurologic: + headaches, No tremors, loss of consciousness. Eyes: + intermittent double vision, loss of vision, eye pain, No eye irritation, discharge. Ears: No hearing loss, ringing in the ears, dizziness, spinning sensation, ear discharge o r earache. Nose and Throat: No nosebleeds, nasal congestion, difficulty swallowing, hoarseness, sore throat. Cardiovascular: No chest pain, skipping beats, + lightheadedness, No difficulty breathing u pright, near fainting or fainting, weight gain, edema. Respiratory: No shortness of breath, coughing up blood, excessive sputum, cough, chest disc omfort or wheezing. Gastrointestinal: No loss of appetite, excessive appetite, + indigestion, vomiting, nausea, constipation, diarrhea, gas, abdominal pain, bloating, bloody stools or dark tarry stools. No hemorrhoids Genitourinary: No urinary frequency, blood in urine, discharge, painful urination, incontin ence, urinary urgency. Skin: + itching, rash, poor wound healing, night sweats, changes in skin color, dryness, N o flushing or suspicious lesions. Musculoskeletal: + joint pain, swelling, back pain, cramp, stiffness. Endocrine: No thyroid dysfunction, diabetes. Heme/Lymphatic: + skin discoloration, abnormal bleeding or enlarged lymph nodes. No anemia , abnormal blood clot. Cognitive function: C/o problems with memory, concentration, word finding difficulty. Psychological: She reports abnormal anxiety, depression, panic attacks, hallucinations; wi ll talk to people. thoughts of suicide but no plan Fatigue: C/o fatigue Current Medication List Name Sig BACLOFEN 10 MG TABLET Take 10 mg by mouth four times daily. CYANOCOBALAMIN (VIT B-12) 1,000 MCG/ML INJECTION SOLUTION Inject 1,000 mcg under the skin ( SUBC) every seven days. FLUOXETINE 10 MG CAPSULE Take 10 mg by mouth once daily. HYDROXYZINE HCL 10 MG TABLET Take 10 mg by mouth four times daily. LEVETIRACETAM 750 MG TABLET Take 1 tablet by mouth two times daily. LISINOPRIL 5 MG TABLET Take 5 mg by mouth once daily. LORAZEPAM 0.5 MG TABLET Take 0.5 mg by mouth as needed for anxiety. OMEPRAZOLE 20 MG CAPSULE,DELAYED RELEASE Take 20 mg by mouth every twelve hours. ONDANSETRON HCL 8 MG TABLET Take 8 mg by mouth once daily as needed. OXYCODONE 10 MG TABLET Take 10 mg by mouth as needed. PROMETHAZINE 12.5 MG TABLET Take 12.5 mg by mouth four times daily as needed for nausea/vom iting. ROPINIROLE 1 MG TABLET Take 1 mg by mouth once daily in the evening. ZOLPIDEM 10 MG TABLET Take 10 mg by mouth once daily at bedtime as needed for sleep. Allergies Allergen Reactions Penicillin Rash Penicillins Rash Social History Social History Marital status: Spouse name: N/A Number of children: N/A Years of education: N/A Occupational History Not on file. Social History Main Topics Smoking status: Never Smoker Smokeless tobacco: Never Used Alcohol use No Comment: none Drug use: No Comment: none Sexual activity: Yes control/ protection: Surgical Comment: tubal ligation Other Topics Concern Not on file Social History Narrative Merged History Encounter Physical examination: Filed Vitals: 03/14/2018 2:45 PM Weight: 89.8 kg (198 lb) BP: 144/80 Pulse: 72 PainSc: 05 - Moderate to Severe PainLoc: Generalized BMI: 35.07 kg/(m^2) General: The patient is alert and cooperative with the exam. Neurologic examination: GEN: pleasant, NAD, WDWN. Appropriate mood and affect. MS: Awake, alert, fully oriented. Patient is a good historian and follows examination well. Normal language function. No neglect. CRANIAL NERVES: I: Not tested II: PERRLA. VFFTC. No RAPD. Fundoscopic examination with no abnormalities III, IV, : Gaze conjugate, EOMI V: Sensation intact and symmetric to light touch V1-V3 VII: Symmetric facial motor function bilaterally VIII: Intact to finger rub bilaterally IX: Palate elevates symmetrically X: Normal cough XI: Normal shoulder shrug bilaterally XII: Tongue protrudes midline MOTOR: No drift. Normal bulk. Normal tone. Delt (C5,6) Bi (C5) Tri (C7) WE (C6) FF (C8) IO (C8,T1) HF (L3) KF KE (L3,4) DF (L4) EHL (L5) PF (S1) Left 5 5 5 5 5 5 5 5 5 5 5 5 Right 5 5 5 5 5 5 5 5 5 5 5 5 SENSATION: Light touch: Intact and symmetric in the bilateral upper and lower extremities. Temp: Intact and symmetric in the bilateral upper and lower extremities. Vibration: Intact and symmetric in the bilateral upper and lower extremities. Pin prick: Intact and symmetric in the bilateral upper and lower extremities. Proprioception: Intact and symmetric in the bilateral upper and lower extremities COORDINATION: Finger to Nose Intact Bilaterally Rapid alternating movements intact bilaterally Heel to [place] intact bilaterally DTRs: ? Biceps Triceps Brachioradialis Knee Ankle Left 2+ 2+ 2+ 2+ 2+ Right 2+ 2+ 2+ 2+ 2+ Plantar reflex downgoing bilaterally [place] absent bilaterally Gait: normal base and stride. Normal tandem. Able to walk on toes and heels. Romberg: negative Head: NCAT Eyes: No scleral icterus, conjunctiva pink. Mouth: Moist mucus membranes Cardiovascular: Warm, well perfused Respiratory: Breathing comfortably Skin: No rashes or significant breakdown Labs: Component Latest Ref Rng & Units 03/14/2018 03/14/2018 4:26 PM 4:26 PM WHITE CELL COUNT 3.50 - 10.80 K/cu mm 10.53 RED CELL COUNT 4.00 - 5.20 M/cu mm 4.75 HEMOGLOBIN 12.0 - 16.0 g/dL 14.0 HEMATOCRIT 36.0 - 46.0 % 41.2 MCV 80.0 - 100.0 fL 86.7 MCHC 32.0 - 36.0 g/dL 34.0 RDW SD 35.1 - 46.3 fL 40.5 PLATELET COUNT 150 - 400 K/cu mm 382 MPV 9.7 - 12.3 fL 10.2 NRBC% 0.0 - 0.3 % 0.0 NRBC# 0.00 - 0.02 K/cu mm 0.00 NEUTROPHIL % 50.0 - 70.0 % 56.6 LYMPHOCYTE % 18.0 - 42.0 % 34.8 MONOCYTE % 3.5 - 9.0 % 4.7 EOS % 1.0 - 3.0 % 3.4 (H) BASO % 0.0 - 2.0 % 0.1 IG% 0.0 - 1.0 % 0.4 NEUTROPHIL # 1.80 - 7.70 K/cu mm 5.96 LYMPHOCYTE # 1.00 - 4.80 K/cu mm 3.66 MONOCYTE # 0.10 - 0.90 K/cu mm 0.50 EOS # 0.00 - 0.50 K/cu mm 0.36 BASO # 0.00 - 0.10 K/cu mm 0.01 IG# 0.00 - 0.10 K/cu mm 0.04 GLUCOSE, PLASMA (LAB) 70 - 99 mg/dL 97 BUN, PLASMA (LAB) 6 - 20 mg/dL 10 CREATININE PLASMA (LAB) 0.60 - 1.10 mg/dL 0.67 EGFR - [place] >60 mL/min >60 EGFR NON -[place] >60 mL/min >60 SODIUM, PLASMA (LAB) 136 - 145 mmol/L 137 POTASSIUM, PLASMA (LAB) 3.4 - 5.0 mmol/L 4.0 CHLORIDE, PLASMA (LAB) 97 - 108 mmol/L 105 TOTAL CO2, PLASMA (LAB) 21 - 32 mmol/L 26 CALCIUM, PLASMA (LAB) 8.6 - 10.2 mg/dL 8.9 CALCIUM(ALB CORRECTED) 8.6 - 10.2 mg/dL 8.6 BILIRUBIN TOTAL 0.3 - 1.2 mg/dL 0.4 TOTAL PROTEIN, PLASMA (LAB) 6.4 - 8.2 g/dL 7.6 ALBUMIN, PLASMA (LAB) 3.5 - 4.7 g/dL 4.4 ALK PHOS 42 - 98 U/L 79 AST(SGOT) <=41 U/L 12 ALT (SGPT) <=60 U/L 28 ANION GAP 4 - 11 mmol/L 6 ANION GAP(ALB CORRECTED) 4 - 11 mmol/L 5 Vitamin D: 18.6 L Ferritin: 62 Assessment: Myoclonus Discussion: Aniket Sweeney is a 37 y.o. woman who is [facility] for evaluation of a constellation of symptoms, particularly the jerking of extremities o n the left. Mrs Sweeney has many symptoms and coming up with a parsimonious explanation is difficult. Her examination is without focal neurological deficits. The jerking she describes (not apparent in clinic) may be due to myoclonus and her response to the levetiracetam 500 mg bid certain ly suggests this as a possibility. It is reasonable to further increase levetiracetam and sh dejuan was prescribed a dose of 750 mg bid to see if this provides any additional benefit. I do n ot think that these are epileptic however depending on her response, could consider routine or ambulatory EEG to capture one of these events, particularly if she requires additional th erapy. She had prior MRI's done at [facility], 04/2013; will request imaging. Her examination is not consistent with Parkinson's disease and her history is well as work up make MS highly un likely; would prefer to review the MRI brain itself to make the definitive determination. Other differentials that I considered include familial paroxysmal nonkinesigenic dyskinesia which is a tempting diagnosis with the other family members also with these symptoms includ ing father and two siblings. This condition is inherited in an autosomal dominant fashion an d we could consider carbamazepine or clonazepam to manage these symptoms if levetiracetam is not effective enough or loses it's efficacy. Another abnormal presentation we can consider is acute intermittent porphyria given her episodic episodes of tachycardia and abdominal dis comfort. 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 She has symptoms suggestive of restless leg synd ynes. Ferritin level was obtained and unlikely to be deficient. It is not unreasonable to co nsider ferrous sulfate supplementation at 325 mg daily to see if this helps with her restles s leg syndrome as she is close to the lower level of normal. Vitamin D level is low and she was prescribed hi dose supplementation. Plan/Recommendations: - Increase levetiracetam to 750 mg bid - CBC w/ diff, CMP, Vitamin D, Porphyrins, Ferritin - Consider ferrous sulfate 325 mg daily - Vitamin D2 50,000 Units weekly for 10 weeks - Then vitamin D3 5000 Units daily - Review prior MRI brain from 04/2013 - RTC in 5 months Orders Placed This Encounter FERRITIN PORPHYRINS AND PORPHOBILINOGEN, URINE ALA, URINE COMP METABOLIC SET [[id number]] CBC, WITH DIFFERENTIAL [[id number]] VITAMIN D, 25-HYDROXY, SERUM [[id number]] levETIRAcetam 750 mg oral tablet I spent 75 minutes with the patient during the visit. More than half of the visit was spent counseling the patient. Keon Gerber MD Neurology Department [facility] Pager [phone] documented in this en counter Plan of Treatment Not on filedocumented as of this encounter Results ALA, URINE (03/14/2018 4:29 [...] | [facility] | | | URINE | [address] | | REG UNIV | | | CONCENTRATI | [facility] | | PTH - [place] | | | [place] | [id number] | | | | | | [phone].Endpoint Clinicaluplab. | | | | | | Kaleb [...] [facility] | [address] | [place], [place] | | | UNIV PTH - INTFC | | [address] | | + + + + + [...] | | | N, URINE | | BOAT CANVAS [employer]KER INSTALLER | REG UNIV | | | ([facility]) | | | PTH - INTFC | | + + + + + + | HEPTACARBOX | <1 | 0 - 2 umol/mol | [facility] | | | YLATE | | BOAT [employer] INSTALLER | REG UNIV | | | PORPHYRIN(A | | | PTH - INTFC | | | RUP) | | | | | + + + + + + | COPROPORPHY | 3 | 0 - 6 umol/mol | [facility] | | | RIN I | | BOAT [employer] MAKER INSTALLER | REG UNIV | | | | | | PTH - INTFC | | + + + + + + | COPROPORPHY | 10 | 0 - 14 umol/mol | [facility] | | | RIN III | | BOAT [employer]VAS MAKER INSTALLER | REG UNIV | | | | [...] | | | | | determined by [facility] | | | | | | Laboratories. See | | | | | | Compliance Statement B: | | | | | | [employer]/CSPerformed | | | | | | by [employer],[address] | | | | | | Marlon Bustos [facility],[place] | | | | | | [id number] | | | | | | [phone].[employer]. | | | | | | comKaleb MD, | | | | | | [...] [facility] | [address] | [place], [place] | | | UNIV PTH - INTFC | | [address] | | + + + + + [...] | + + + + + | [facility] | [address] | [place] [address] | | | SERVICES, JONATHAN | NATASHA [...] | | | LABORATORY | | | [place] | | | SERVICES, | | | [...] | + + + + + | [facility] | [address] | [place] [address] | | | SERVICES, JONATHAN | [address] | | | [...] | + + + + + | [facility] | [address] | [place] [address] | | | SERVICES, CORE | [address] | | | + + + + + documented in this encounter Visit Diagnoses + + | Diagnosis | + + | Myoclonus - Primary | + + | RLS (restless legs syndrome) Restless legs syndrome (RLS) | + + | Abdominal pain, unspecified abdominal location | + + | Hypovitaminosis D Unspecified vitamin D deficiency | + + documented in this encounter
--- OUTSIDE RECORDS SUMMARY | ~2018-12-26 | XMS | Encounter Summary ---
Demographics + + + | Address | [address] | | | [place] [address] | + + + | Home Phone [...] Phone | + + +---------+ + | dEmond Sweeney | ECON | Unknown | | + + +---------+ + | Kentrell Crow | ECON | Unknown | | + + +---------+ + Care Team Providers + +------+ + | Care Inspector Subassemblies Name | Role | Phone | + +------+ + | Melvina TalleyP | PCP | | + +------+ + Encounter Details +--------+ + + + + | Date | Type | Department | Care Team | Description | +--------+ + + + + | 02/15/ | Documentati | Otolaryngology | Gloria, | | | 2016 | on | Laryngology Services | Lucy Ohara PA-C | | | | | at [facility] [address] | [address] | | | | | [place] [address], | [place], [place] | | | | | [place] [address] | [address] | | | | | [phone] | [phone] | | | | | | | | +--------+ + + [...]
--- OUTSIDE RECORDS SUMMARY | ~2018-12-26 | XMS | Encounter Summary ---
Demographics + + + | Address | [address] | | | [place] [address] | + + + | Home Phone | | + + + | Preferred Language | Unknown | + + + | Marital Status | | + + + | Pentecostalism Affiliation | NON | + + + | Race | White | + + + | Ethnic Group | Not or | + + + Author + + + | Author | [facility] | + + + | Organization | [facility] | + + + | [...] Team Providers + +------+ + | Care Shampoo Person Name | Role | Phone | + +------+ + | Unknown | PCP | Unavailable | + +------+ + Reason for Referral Consultation (Routine) +--------+--------+ + + + + | Status | Reason | Specialty | Diagnoses / | Referred By | Referred To | | | | | Procedures | Contact | Contact | +--------+--------+ + + + + | Denied | | Neurology | Diagnoses | [place], | [facility] | | | | | Myoclonic | MD Jesus | [address] | | | | | seizures | [address] | [place] | | | | | ([facility]) | [address] | Mailcode: | | | | | Procedures | Rd | [facility] | | | | | CONSULT TO | [place], [place] | for Health | | | | | NEUROLOGY | [address] | and Healing, | | | | | | Phone: | Building [address], | | | | | | [phone] | 8th Floor | | | | | | Fax: | [place], [place] | | | | | | [phone] | [address] | | | | | | | Phone: | | | | | | | [phone] | | | | | | | Fax: | | | | | | | [phone] | +--------+--------+ + + + + Reason for Visit + + + | Reason | Comments | + + + | Pain | | + + + | Second or third | | | medical opinion | | + + + AUTH/CERT +--------+--------+ + + + + | [...] | +--------+ + + + + | 12/09/ | Emergency | [facility] Emergency | Jesus Khan MD | | | 2017 | | Department [address] | [address] | | | | | [address] | [address] | | | | | [facility] | [place], [place] | | | | | [place], [place] | [address] | | | | | [address] | [phone] | | | | | [phone] | | | +--------+ + + + [...] + + + | Blood Pressure | 158/90 | 12/09/2017 7:27 PM | | | | | PDT | | + + + + + | Pulse | 74 | 12/09/2017 7:27 PM | | | | | PDT | | + + + + + | Temperature | 37 C (98.6 F) | 12/09/2017 7:27 PM | | | | | PDT | | + + + + + | Respiratory Rate | 12 | 12/09/2017 2:00 PM | | | | | PDT | | + + + + + | Oxygen Saturation | 99% | 12/09/2017 7:27 PM | | | | | PDT | | + + + + + | Inhaled Oxygen | - | - | | | Concentration | | | | + + + + + | Weight | 88.5 kg (195 lb) | 12/09/2017 2:00 PM | | | | | PDT | | + + + + + | Height | - | - | | + + + + + | Body Mass Index | 34.54 | 08/17/2016 1:47 PM | | | | | PDT | | + + + + + documented in this encounter Discharge Instructions Instructions Jesus Khan MD - 12/09/2017During your visit in the [facility] ED, you had labs and a neurology evaluation. 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 They also want to see [place] in the [facility] Neurology Epilepsy clinic (see contact information). We will place an internal referral to facilitate this. We recommend no driving, swimming or operating machinery until this clinical condition has been stabilized (as assessed by neurology). You should also follow with your primary provide r within 3 days for recheck and to help coordinate care. We will send them a copy of your re sults. Please return immediately to the ER for: -fever -weakness -difficulty walking -increased problems with balance or coordination -confusion -vision changes -worse symptoms or any concerns. AttachmentsThe following attachments cannot be sent through Care Everywhere.Seizure (Englis h)documented in this encounter Medications at Time of Discharge + + + +---------+ + + | Medication | Sig | Dispensed | Refills | Start | End Date | | | | | | Date | | + + + +---------+ + + | baclofen 10 mg | Take 10 mg by mouth | | 0 | | | | oral tablet | four times daily. | | | | | + + + +---------+ + + | cyanocobalamin | Inject 1,000 mcg | | 0 | | | | 1,000 mcg/mL | under the skin | | | | | | injection solution | (SUBC) every seven | | | | | | | days. | | | | | + + + +---------+ + + | FLUoxetine 10 mg | Take 10 mg by mouth | | 0 | | | | oral capsule | once daily. | | | | | + + + +---------+ + + | hydrOXYzine 10 mg | Take 10 mg by mouth | | 0 | | | | oral tablet | four times daily. | | | | | + + + +---------+ + + | lisinopril 5 mg | Take 5 mg by mouth | | 0 | | | | oral tablet | once daily. | | | | | + + + +---------+ + + | LORazepam 1 mg | Take 1 mg by mouth | | 0 | | | | oral tablet | as needed for | | | | | | | anxiety (1 mg in AM, | | | | | | | 1 mg in afternoon, | | | | | | | 2 mg qhs). | | | | | + + + +---------+ + + | omeprazole 20 mg | Take 20 mg by mouth | | 0 | | | | oral capsule,delayed | every twelve hours. | | | | | | release(DR/EC) | | | | | | + + + +---------+ + + | ondansetron 8 mg | Take 8 mg by mouth | | 0 | | | | oral tablet | once daily as | | | | | | | needed. | | | | | + + + +---------+ + + | oxyCODONE | Take 10 mg by mouth | | 0 | | | | (immediate release) | as needed. | | | | | | 10 mg oral tablet | | | | | | + + + +---------+ + + | promethazine 12.5 | Take 12.5 mg by | | 0 | | | | mg oral tablet | mouth four times | | | | | | | daily as needed for | | | | | | | nausea/vomiting. | | | | | + + + +---------+ + + | rOPINIRole 1 mg | Take 1 mg by mouth | | 0 | | | | oral tablet | once daily in the | | | | | | | evening. | | | | | + + + +---------+ + + | zolpidem 10 mg | Take 10 mg by mouth | | 0 | | | | oral tablet | once daily at | | | | | | | bedtime as needed | | | | | | | for sleep. | | | | | + + + +---------+ + + | levETIRAcetam | Take 1 tablet by | 60 | 1 | 12/10/19 | | | (KEPPRA) 500 mg oral | mouth two times | tablet | | 18 | 8 | | tablet | daily. | | | | | + + + +---------+ + + documented as of this encounter Plan of Treatment Not on filedocumented as of this encounter Procedures + +--------+ + + + | Procedure Name | Priori | Date/Time | Associated Diagnosis | Comments | | | ty | | | | + +--------+ + + + | HCG URINE, POC | Urgent | 12/09/2017 | | Results for this | | | | 4:41 PM | | procedure are in the | | | | PDT | | results section. | + +--------+ + + + | CBC AND AUTO DIFF | Urgent | 12/09/2017 | | Results for this | | | | 2:08 PM | | procedure are in the | | | | PDT | | results section. | + +--------+ + + + | CBC, WITH | Urgent | 12/09/2017 | | Results for this | | DIFFERENTIAL | | 2:08 PM | | procedure are in the | | | | PDT | | results section. | + +--------+ + + + | COMPLETE METABOLIC | Urgent | 12/09/2017 | | Results for this | | SET | | 2:08 PM | | procedure are in the | | (NA,K,CL,CO2,BUN,CRE | | PDT | | results section. | | AT,GLUC,CA,AST,ALT,B | | | | | | BAKARI TOTAL,ALK | | | | | | PHOS,ALB,PROT TOTAL) | | | | | + +--------+ + + + | UA, DIPSTICK ONLY | Urgent | 12/09/2017 | | Results for this | | | | 2:08 PM | | procedure are in the | | | | PDT | | results section. | + +--------+ + + + | LIPASE, PLASMA | Urgent | 12/09/2017 | | Results for this | | | | 2:08 PM | | procedure are in the | | | | PDT | | results section. | + +--------+ + + + | ED INFORMATION | Routin | 12/09/2017 | | Results for this | | EXCHANGE | e | 1:48 PM | | procedure are in the | | | | PDT | | results section. | + +--------+ + + + documented in this encounter Results HCG URINE, POC (12/09/2017 4:41 PM PDT) + + + + + + | Component | Value | Ref Range | Performed | Pathologist | | | | | At | Signature | + + + + + + | HCG URINE, | Negative | Negative | [facility] - | | | POC | | | [facility] | | | | | | [facility] | | | | | | OF CARE | | | | | | TESTS | | + + + + + + + + | Specimen | + + | Urine - Urine | | (substance) | + + + + + + + | Performing | Address | City/State/Zipcode | Phone Number | | Organization | | | | + + + + + | [facility] | [address] | [place], [place] | | | [facility] | [address] | [address] | | | TESTS | | | | + + + + + CBC AND AUTO DIFF (12/09/2017 2:08 PM PDT) + + + + + + | Component | Value | Ref Range | Performed | Pathologist | | | | | At | Signature | + + + + + + | WHITE CELL | 10.45 | 3.50 - 10.80 | [facility] | | | COUNT | | K/cu mm | LABORATORY | | | | | | SERVICES, | | | | | | CORE | | + + + + + + | RED CELL | 4.53 | 4.00 - 5.20 | [facility] | | | COUNT | | M/cu mm | LABORATORY | | | | | | SERVICES, | | | | | | CORE | | + + + + + + | HEMOGLOBIN | 13.6 | 12.0 - 16.0 | [facility] | | | | | g/dL | LABORATORY | | | | | | SERVICES, | | | | | | CORE | | + + + + + + | HEMATOCRIT | 39.9 | 36.0 - 46.0 % | [facility] | | | | | | LABORATORY | | | | | | SERVICES, | | | | | | CORE | | + + + + + + | MCV | 88.1 | 80.0 - 100.0 fL | [facility] | | | | | | LABORATORY | | | | | | SERVICES, | | | | | | CORE | | + + + + + + | MCHC | 34.1 | 32.0 - 36.0 | [facility] | | | | | g/dL | LABORATORY | | | | | | SERVICES, | | | | | | CORE | | + + + + + + | RDW SD | 40.1 | 35.1 - 46.3 fL | [facility] | | | | | | LABORATORY | | | | | | SERVICES, | | | | | | CORE | | + + + + + + | PLATELET | 351 | 150 - 400 K/cu | [facility] | | | COUNT | | mm | LABORATORY | | | | | | SERVICES, | | | | | | CORE | | + + + + + + | MPV | 10.1 | 9.7 - 12.3 fL | [facility] [...] + + + + | NEUTROPHIL | 56.2 | 50.0 - 70.0 % | [facility] | | | % | | | LABORATORY | | | | | | SERVICES, | | | | | | CORE | | + + + + + + | LYMPHOCYTE | 34.9 | 18.0 - 42.0 % | [facility] | | | % | | | LABORATORY | | | | | | SERVICES, | | | | | | CORE | | + + + + + + | MONOCYTE % | 4.4 | 3.5 - 9.0 % | [facility] | | | | | | LABORATORY | | | | | | SERVICES, | | | | | | CORE | | + + + + + + | EOS % | 4.1 (H) | 1.0 - 3.0 % | [...] + + + + | IG% | 0.3Comment: Increased | 0.0 - 1.0 % | [...] + + + + | NEUTROPHIL | 5.87 | 1.80 - 7.70 | [facility] | | | # | | K/cu mm | LABORATORY | | | | | | SERVICES, | | | | | | CORE | | + + + + + + | LYMPHOCYTE | 3.65 | 1.00 - 4.80 | [facility] | | | # | | K/cu mm | LABORATORY | | | | | | SERVICES, | | | | | | CORE | | + + + + + + | MONOCYTE # | 0.46 | 0.10 - 0.90 | [facility] | | | | | K/cu mm | LABORATORY | | | | | | SERVICES, | | | | | | CORE | | + + + + + + | EOS # | 0.43 | 0.00 - 0.50 | [facility] | [...] + + + + | IG# | 0.03 | 0.00 - 0.10 | [facility] | [...] Performed At | + + + | New pediatric reference ranges for Lymphocyte % in effect August 01 | [place] | | 2017. New reference ranges for MCV, MCHC, PLT, IG% and IG# | LABORATORY | | effective 06/27/2017 Increased immature granulocytes (IG) define a | SERVICES, CORE | | left shift. Immature granulocytes (IG) are an automated count of | | | metamyelocytes, myelocytes and promyelocytes. Bands are not included | | | in the IG count. Bands are included in the neutrophil count. | | + + + + + + + + | Performing | Address | City/State/Zipcode | Phone Number | | Organization | | | | + + + + + | [facility] | [address] | [place] [address] | | | SERVICES, CORE | [address] | | | + + + + + LIPASE, PLASMA (12/09/2017 2:08 PM PDT) + +---------+ + + + | Component | Value | Ref Range | Performed | Pathologist | | | | | At | Signature | + +---------+ + + + | LIPASE | 108 (L) | 152 - 353 U/L | [facility] | | | (LAB) | [...] | + + + + + | [facility] | [address] | [place] [address] | | | SERVICES, CORE | [address] | | | + + + + + COMPLETE METABOLIC SET (NA,K,CL,CO2,BUN,CREAT,GLUC,CA,AST,ALT,BILI TOTAL,ALK PHOS,ALB,PROT TOTAL) (12/09/2017 2:08 PM PDT) + +---------+ + + + | Component | Value | Ref Range | Performed | Pathologist | | | | | At | Signature | + +---------+ + + + | GLUCOSE, | 104 (H) | 70 - 99 mg/dL | [facility] | | | PLASMA | | | LABORATORY | | | (LAB) | | | SERVICES, | | | | | | CORE | | + +---------+ + + + | BUN, PLASMA | 12 | 6 - 20 mg/dL | [facility] | | | (LAB) | | | LABORATORY | | | | | | SERVICES, | | | | | | CORE | | + +---------+ + + + | CREATININE | 0.63 | 0.60 - 1.10 | [facility] | | | PLASMA | | mg/dL | LABORATORY | | | (LAB) | | | SERVICES, | | | | | | CORE | | + +---------+ + + + | EGFR | >60 | >60 mL/min | [facility] | | | - | | | LABORATORY | | | [place] | | | SERVICES, | | | | | | CORE | | + +---------+ + + + | EGFR NON | >60 | >60 mL/min | [facility] | | | -ALFIE | | | LABORATORY | | | RICAN | | | SERVICES, | | | | | | CORE | | + +---------+ + + + | SODIUM, | 140 | 136 - 145 | [facility] | | | PLASMA | | mmol/L | LABORATORY | | | (LAB) | | | SERVICES, | | | | | | CORE | | + +---------+ + + + | POTASSIUM, | 3.8 | 3.4 - 5.0 | [facility] | | | PLASMA | | mmol/L | LABORATORY | | | (LAB) | | | SERVICES, | | | | | | CORE | | + +---------+ + + + | CHLORIDE, | 110 (H) | 97 - 108 mmol/L | [facility] | | | PLASMA | | | LABORATORY | | | (LAB) | | | SERVICES, | | | | | | CORE | | + +---------+ + + + | TOTAL CO2, | 22 | 21 - 32 mmol/L | [facility] | | | PLASMA | | | LABORATORY | | | (LAB) | | | SERVICES, | | | | | | CORE | | + +---------+ + + + | CALCIUM, | 8.6 | 8.6 - 10.2 | [facility] | | | PLASMA | | mg/dL | LABORATORY | | | (LAB) | | | SERVICES, | | | | | | CORE | | + +---------+ + + + | CALCIUM(ALB | 8.8 | 8.6 - 10.2 | [facility] | | | CORRECTED) | | mg/dL | LABORATORY | | | | | | SERVICES, | | | | | | CORE | | + +---------+ + + + | BILIRUBIN | 0.2 (L) | 0.3 - 1.2 mg/dL | [facility] | | | TOTAL | | | LABORATORY | | | | | | SERVICES, | | | | | | CORE | | + +---------+ + + + | TOTAL | 7.0 | 6.4 - 8.2 g/dL | [facility] | | | PROTEIN, | | | LABORATORY | | | PLASMA | | | SERVICES, | | | (LAB) | | | CORE | | + +---------+ + + + | ALBUMIN, | 3.8 | 3.5 - 4.7 g/dL | [facility] | | | PLASMA | | | LABORATORY | | | (LAB) | | | SERVICES, | | | | | | CORE | | + +---------+ + + + | ALK PHOS | 76 | 42 - 98 U/L | [facility] | | | | | | LABORATORY | | | | | | SERVICES, | | | | | | CORE | | + +---------+ + + + | AST(SGOT) | 16 | <=41 U/L | [facility] | | | | | | LABORATORY | | | | | | SERVICES, | | | | | | CORE | | + +---------+ + + + | ALT (SGPT) | 33 | <=60 U/L | [facility] | | | | | | LABORATORY | | | | | | SERVICES, | | | | | | CORE | | + +---------+ + + + | ANION GAP | 8 | 4 - 11 mmol/L | [facility] | | | | | | LABORATORY | | | | | | SERVICES, | | | | | | CORE | | + +---------+ + + + | ANION | 8 | 4 - 11 mmol/L | [facility] [...] | | Kidney Failure Estimated GFR greater that 60 mL/min/1.73 sq m is of | [...] | + + + + + | [facility] | [address] | [place] [address] | | | SERVICES, CORE | [address] | | | + + + + + NEO DENISE (12/09/2017 2:08 PM PDT) + + + + + + | Component | Value | Ref Range | Performed | Pathologist | | | | | At | Signature | + + + + + + | COLOR(UR) | Yellow | | [facility] | | | | | | LABORATORY | | | | | | SERVICES, | | | | | | CORE | | + + + + + + | APPEARANCE | Sl.Cloudy | | [facility] | | | | | | LABORATORY | | | | | | SERVICES, | | | | | | CORE | | + + + + + + | GLUCOSE(UR) | Negative | Negative, 50.0 | [facility] | | | | | mg/dL | LABORATORY | | | | | | SERVICES, | | | | | | CORE | | + + + + + + | PROTEIN(LAB | Negative | Negative, 30.0 | [facility] | | | ) | | mg/dL | LABORATORY | | | | | | SERVICES, | | | | | | CORE | | + + + + + + | BILIRUBIN | Negative | Negative | [facility] | | | | | | LABORATORY | | | | | | SERVICES, | | | | | | CORE | | + + + + + + | UROBILINOGE | 2.0 (A) | <2.0 mg/dL | [facility] | | | N | | | LABORATORY | | | | | | SERVICES, | | | | | | CORE | | + + + + + + | PH(UR) | 5.0 | 5.0 - 8.0 | [facility] | | | | | | LABORATORY | | | | | | SERVICES, | | | | | | CORE | | + + + + + + | BLOOD | Negative | Negative | [facility] | | | | | | LABORATORY | | | | | | SERVICES, | | | | | | CORE | | + + + + + + | KETONES | Negative | Negative mg/dL | [facility] | | | | | | LABORATORY | | | | | | SERVICES, | | | | | | CORE | | + + + + + + | NITRITES | Negative | Negative | [facility] | | | | | | LABORATORY | | | | | | SERVICES, | | | | | | CORE | | + + + + + + | LEUKOCYTE | Negative | Negative | [facility] | | | ESTERASE | | | LABORATORY | | | | | | SERVICES, | | | | | | CORE | | + + + + + + | SPECIFIC | 1.020Comment: Specific | 1.005 - 1.030 | [facility] | | | GRAVITY | [employer] performed by | | LABORATORY | | | | refractometry | | SERVICES, | | | | | | CORE | | + + + + + + + + | Specimen | + + | Urine | + + + + + + + | Performing | Address | City/State/Zipcode | Phone Number | | Organization | | | | + + + + + | [facility] | [address] | [place] [address] | | | JONATHAN CHUN | [address] | | | + + + + + ED INFORMATION EXCHANGE (12/09/2017 1:48 PM PDT) + + | Specimen | + + | | + + + + + | Narrative | Performed At | + + + | [id number] This patient has registered at the | COLLECTIVE | | [facility] Emergency Department For more | MEDICAL | | information visit: | TECHNOLOGIES | | [email or web address] | | | [email or web address] Security Events No recent Security Events currently on file | | | ED Care Guidelines There are currently no ED Care Guidelines in | | | [place] for this patient. Please check your facility's medical records | | | system. Recent Emergency Department Visit Summary Admit Date | | | Facility City State Type Major Type Diagnoses or Chief Complaint Nov | | | 2017 [facility] [place] Emergency | | | Emergency 10,800. l side pain Dec 02, [address] [facility] 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 | | | E.D. Visit Count (12 mo.) Facility Visits [facility] and | | | [facility] 1 [facility] 1 Total 2 Note: | | | Visits indicate total known visits. PDMP Report Rx Details (6 | | | Mo.) Fill Date Drug Description Qty. Prescriber MED 2017-12-06 | | | ZOLPIDEM TARTRATE 10 MG TABLET 30 MOSHE HUFFP 4 0 | | | 2017-11-29 LORAZEPAM 0.5 MG TABLET 10 VIRIDIANA MCELLIGOTT, OPS MANAGER 4 0 | | | 2017-11-19 LORAZEPAM 0.5 MG TABLET 10 VIRIDIANA MCELLIGOTT, OPS MANAGER 4 0 | | | 2017-11-12 OXYCODONE HCL 10 MG TABLET 120 VIRIDIANA MCELLIGOTT, OPS MANAGER 0 | | | 2017-11-08 ZOLPIDEM TARTRATE 10 MG TABLET 30 VIRIDIANA MCELLIGOTT, OPS MANAGER 4 0 | | | 2017-10-11 OXYCODONE HCL 10 MG TABLET 120 VIRIDIANA MCELLIGOTT, OPS MANAGER 0 | | | 2017-10-10 ZOLPIDEM TARTRATE 10 MG TABLET 30 VIRIDIANA MCELLIGOTT, OPS MANAGER | | | 4 0 2017-09-13 ZOLPIDEM TARTRATE 10 MG TABLET 30 VIRIDIANA MCELLIGOTT, | | | OPS MANAGER 4 0 2017-09-10 OXYCODONE HCL 10 MG TABLET 120 VIRIDIANA MCELLIGOTT, | | | OPS MANAGER 0 2017-08-16 ZOLPIDEM TARTRATE 10 MG TABLET 30 VIRIDIANA | | | MCELLIGOTT, OPS MANAGER 4 0 2017-08-12 OXYCODONE HCL 10 MG TABLET 120 VIRIDIANA | | | MCELLIGOTT, OPS MANAGER 0 2017-07-17 ZOLPIDEM TARTRATE 10 MG TABLET 30 | | | VIRIDIANA MCELLIGOTT, OPS MANAGER 4 0 2017-07-12 OXYCODONE HCL 10 MG TABLET 120 | | | VIRIDIANA MCELLIGOTT, OPS MANAGER 0 2017-06-19 ZOLPIDEM TARTRATE 10 MG TABLET | | | 30 VIRIDIANA MCELLIGOTT, OPS MANAGER 4 0 2017-06-14 OXYCODONE HCL 10 MG TABLET | | | 120 VIRIDIANA MCELLIGOTT, OPS MANAGER 0 Rx Summary (12 Mo.) Metric Count | | | CS II-V Rx 16 CS-II Rx 1 Quantity Dispensed 1,730 Unique | | | Prescribers 2 Unique Pharmacies 1 Benzos 0 Opioids 11 Long | | | Acting Opioids 0 The above information is provided for the | | | sole purpose of patient treatment. Use of this information beyond | | | the terms of Data Sharing Memorandum of Understanding and License | | | Agreement is prohibited. In certain cases not all visits may be | | | represented. Consult the aforementioned facilities for additional | | | information. 2018 [employer] - [facility] | | | [place], [place] - [email or web address] | | + + + + + | Procedure Note | + + | Service Account, Rtf Results Inbound - 12/09/2017 1:50 PM PDT Formatting of this | | note might be different from the original.MELISSA?NOTIFICATION?12/09/2017 13:48?MARJORIE, | | ANIKET Barron? patient has registered at the [facility] GoLive! Mobile [facility] | | [place] [facility] For more information visit: | | [email or web address] Security | | EventsNo recent Security Events currently on fileED Care GuidelinesThere are currently | | no ED Care Guidelines in [place] for this patient. Please check your facility's medical | | records system.Recent Emergency Department Visit SummaryAdmit Date Facility [facility] | | Type Major Type Diagnoses or Chief Complaint Dec 09, 2017 [facility] | | [facility] [place] Emergency Emergency 10,800. l side pain Dec 02, 2017 [facility]. 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 E.D. | | Visit Count (12 mo.)Facility Visits [facility] 1 [facility]. | | [place] [address] Total 2 Note: Visits indicate total known visits. PDMP ReportRx | | Details (6 Mo.)Fill Date Drug Description Qty. 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 4 0 2017-11-29 LORAZEPAM 0.5 MG TABLET 10 | | VIRIDIANA MCELLIGOTT, OPS MANAGER 4 0 2017-11-19 LORAZEPAM 0.5 MG TABLET 10 [facility] [facility] OPS MANAGER 4 | | 0 2017-11-12 OXYCODONE HCL 10 MG TABLET 120 VIRIDIANA [facility], OPS MANAGER 0 2017-11-08 ZOLPIDEM | | TARTRATE 10 MG TABLET 30 VIRIDIANA MCELLIGOTT, OPS MANAGER 4 0 2017-10-11 OXYCODONE HCL 10 MG | | TABLET 120 VIRIDIANA [facility] [place], OPS MANAGER 0 2017-10-10 ZOLPIDEM TARTRATE 10 MG TABLET 30 VIRIDIANA | | MCELLIGOTT, OPS MANAGER 4 0 2017-09-13 ZOLPIDEM TARTRATE 10 MG TABLET 30 VIRIDIANA [facility] [place], OPS MANAGER 4 | | 0 2017-09-10 OXYCODONE HCL 10 MG TABLET 120 VIRIDIANA [facility] [place], OPS MANAGER 0 2017-08-16 ZOLPIDEM | | TARTRATE 10 MG TABLET 30 VIRIDIANA [facility] [facility] [place] 4 0 2017-08-12 OXYCODONE HCL 10 MG | | TABLET 120 [facility] [place] 0 2017-07-17 ZOLPIDEM TARTRATE 10 MG TABLET 30 [facility] | | MCELLIGOTT, OPS MANAGER 4 0 2017-07-12 O[facility]CODONE HCL 10 MG [facility] | | 2017-06-19 ZOLPIDEM TARTRATE 10 MG TABLET [facility] 4 0 2017-06-14 | | OXYCODONE HCL 10 MG TABLET 120 [facility] 0 Rx Summary (12 Mo.)Metric Count | | CS II-V Rx 16 CS-II Rx 1 Quantity Dispensed 1,730 Unique Prescribers 2 Unique Pharmacies | | 1 Benzos 0 Opioids 11 Long Acting Opioids 0 The above information is provided for the | | sole purpose of patient treatment. Use of this information beyond the terms of Data | | Sharing Memorandum of Understanding and License Agreement is prohibited. In certain | | cases not all visits may be represented. Consult the aforementioned facilities for | | additional information. ? 2018 [facility]. - [place], | | [place] - [email or web address] | |Rx Details (6 Mo.) | |Fill Date Drug Description Qty. 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 4 0 | |2017-11-29 LORAZEPAM 0.5 MG TABLET 10 [facility] MCELLIGOTT, OPS MANAGER 4 0 | |2017-11-19 LORAZEPAM 0.5 MG TABLET 10 [facility] MCELLIGOTT, OPS MANAGER 4 0 | |2017-11-12 OXYCODONE HCL 10 MG TABLET [facility] [place]PS MANA[place] 0 | |2017-11-08 ZOLPIDEM TARTRATE 10 MG TABLET 30 [facility] MCELLIGOTT, OPS MANAGER 4 0 | |2017-10-11 OXYCODONE HCL 10 MG TABLET 120 [facility] [place] OPS MANAGER 0 | |2017-10-10 ZOLPIDEM TARTRATE 10 MG TABLET 30 [facility] MCELLIGOTT, OPS MANAGER 4 0 | |2017-09-13 ZOLPIDEM TARTRATE 10 MG TABLET 30 [facility] MCELLIGOTT, OPS MANAGER 4 0 | |2017-09-10 OXYCODONE HCL 10 MG TABLET 120 [facility] MCELLIGOTT, OPS MANAGER 0 | |2017-08-16 ZOLPIDEM TARTRATE 10 MG TABLET 30 [facility] MCELLIGOTT, OPS MANAGER 4 0 | |2017-08-12 OXYCODONE HCL 10 MG TABLET 120 [facility] MCELLIGOTT, OPS MANAGER 0 | |2017-07-17 ZOLPIDEM TARTRATE 10 MG TABLET 30 [facility] MCELLIGOTT, OPS MANAGER 4 0 | |2017-07-12 OXYCODONE HCL 10 MG TABLET 120 [facility] MCELLIGOTT, OPS MANAGER 0 | |2017-06-19 ZOLPIDEM TARTRATE 10 MG TABLET 30 [facility] MCELLIGOTT, OPS MANAGER 4 0 | |2017-06-14 OXYCODONE HCL 10 MG TABLET 120 VIR[facility] MCELLIGOTT, OPS MANAGER 0 | | | |Rx Summary (12 Mo.) | |Metric Count | |CS II-V Rx 16 | |CS-II Rx 1 | |Quantity Dispensed 1,730 | |Unique Prescribers 2 | |Unique Pharmacies 1 | |Benzos 0 | |Opioids 11 | |Long Acting Opioids 0 | | | | | |The above information is provided for the sole purpose of patient treatment. Use of this in formation beyond the terms of Data Sharing Memorandum of Understanding and License Agreement is prohibited. In | |certain cases not all visits may be represented. Consult the aforementioned facilities for additional information. | |? 2018 [facility]. 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
--- OUTSIDE RECORDS SUMMARY | ~2018-12-26 | XMS | Encounter Summary ---
Demographics + + + | Address | [address] | | | [place] [address] | + + + | Home Phone | | + + + | Preferred Language | Unknown | + + + | Marital Status | | + + + | Anabaptist Affiliation | NON | + + + | Race | White | + + + | Ethnic Group | Not or | + + + Author + + + | Author | [facility] | + + + | Organization | [facility] | + + + | [...] Team Providers + +------+ + | Care Musical String Maker Name | Role | Phone | + +------+ + | Melvina TalleyP | PCP | | + +------+ + Encounter Details +--------+ + + + + | Date | Type | Department | Care Team | Description | +--------+ + + + + | 05/07/ | MyChart | Neurology at | Keon Gerber, | Vitamin D | | 2019 | Encounter | [facility] & | [address] | | | | | [place] [address] | [place], [place] | | | | | [address] Mailcode: | [address] | | | | | [facility] | [phone] | | | | | Health and Healing, | | | | | | [facility] | | | | | | [place], [place] | | | | | | [address] | | | | | | [phone] | | | +--------+ + + + [...]
--- OUTSIDE RECORDS SUMMARY | ~2018-12-26 | XMS | Encounter Summary ---
Demographics + + + | Address | [address] | | | [place] [address] | + + + | Home Phone | | + + + | Preferred Language | Unknown | + + + | Marital Status | | + + + | Episcopalian Affiliation | NON | + + + | Race | White | + + + | Ethnic Group | Not or | + + + Author + + + | Author | [facility] | + + + | Organization | [facility] | + + + | Address [...] Team Providers + +------+ + | Care Recorder Helper Gravity Prospecting Name | Role | Phone | + +------+ + | Melvina TalleyP | PCP | | + +------+ + Encounter Details +--------+ + + + + | Date | Type | Department | Care Team | Description | +--------+ + + + + | 04/23/ | Documentati | Otolaryngology | [place], | | | 2017 | on | Laryngology Services | Lucy Ohara PA-C | | | | | at [facility] [address] | [address] | | | | | [address], | [place], [place] | | | | | [place] [address] | [address] | | | | | [phone] | [phone] | | | | | | | [...]
--- OUTSIDE RECORDS SUMMARY | ~2018-12-26 | XMS | Encounter Summary ---
Demographics + + + | Address | [address] | | | [place] [address] | + + + | Home Phone | | + + + | Preferred Language | Unknown | + + + | Marital Status | | + + + | Zoroastrian Affiliation | NON | + + + [...] Team Providers + +------+ + | Care Intermission Coordinator Name | Role | Phone | + +------+ + | Melvina TalleyP | PCP | | + +------+ + Encounter Details +--------+ + + + + | Date | Type | Department | Care Team | Description | +--------+ + + + + | 03/22/ | Abstract | Neurology at | Gallo Hauser, | | | 2016 | | [facility] MD | | | | | [address] | | | | | [address] Mailcode: | | | | | | [address] | | | | | | Health and Healing, | | | | | | Building | | | | | | Floor [place], [place] | | | | | | [address] | | | | | | [phone] | | | +--------+ + + + [...]
--- OUTSIDE RECORDS SUMMARY | ~2018-12-26 | XMS | Encounter Summary ---
Demographics + + + | Address | [address] | | | [place] [address] | + + + | Home Phone | | + + + | Preferred Language | Unknown | + + + | Marital Status | | + + + | Mormonism Affiliation | NON | + + + [...] Team Providers + +------+ + | Care Consultant Technology Name | Role | Phone | + +------+ + | Melvina Talley | PCP | | + +------+ + Reason for Visit + + + | Reason | Comments | + + + | Questions About | | | Diagnosis | | + + + Encounter Details +--------+ + + + + | Date | Type | Department | Care Team | Description | +--------+ + + + + | 09/08/ | Telephone | Neurology at | Buzz Nicolas, | Questions About | | 2019 | | [facility] & | MD [address] | Diagnosis | | | | Healing [address] | [place], [place] | | | | | [address] Mailcode: | [address] | | | | | [facility] | [phone] | | | | | Health and Healing, | | | | | | [facility] | | | | | | [place], [place] | | | | | | [address] | | | | | | [phone] | | | +--------+ + + + [...]
--- OUTSIDE RECORDS SUMMARY | ~2018-12-26 | XMS | Clinical Summary ---
Demographics + + + | Address | [address] | | | [place] [address] | + + + | Home Phone | | + + + | Preferred Language | Unknown | + + + | Marital Status | | + + + | Adventist Affiliation | Unknown | + + + | Race | Unknown | + + + | Ethnic Group | Unknown | + + + Author + + + | Author | [facility] (Historical as of | | | 10-04-18) | + + + | Organization | [facility] (Historical as of | | | 10-04-18) | + + + | Address | Unknown | + + + | Phone | Unavailable | + + + Support + + +---------+ + | Name | Relationship | Address | Phone | + + +---------+ + | Sweeney,Edmond | ECON | Unknown | | + + +---------+ + Care Team Providers + +------+ + | Care Song Lyricist Name | Role | Phone | + +------+ + | Melvina Talley ELECTROTYPE CASTER | PP | | + +------+ + Allergies + + + + + + | Active Allergy | Reactions | Severity | Noted | Comments | | | | | Date | | + + + + + + | Penicillins | Hives | High | 02/25/19 | | | | | | 14 | | + + + + + + Current Medications + + +-------+---------+------+------+-------+ | Prescription | Sig. | Disp. | Refills | Star | End | Statu | | | | | | t | Date | s | | | | | | Date | | | + + +-------+---------+------+------+-------+ | Nebivolol HCl | Take 10 mg by mouth | | | | | Activ | | (BYSTOLIC) 20 MG | daily. | | | | | e | | TABS | | | | | | | + + +-------+---------+------+------+-------+ | cyclobenzaprine | Take 10 mg by mouth | | | | | Activ | | (FLEXERIL) 10 MG | 2 (two) times daily. | | | | | e | | tablet | | | | | | | + + +-------+---------+------+------+-------+ | zolpidem (AMBIEN) | Take 10 mg by mouth | | | | | Activ | | 10 MG tablet | nightly. | | | | | e | + + +-------+---------+------+------+-------+ | omeprazole | Take 20 mg by mouth | | | | | Activ | | (PRILOSEC) 20 MG | 2 (two) times daily. | | | | | e | | capsule | | | | | | | + + +-------+---------+------+------+-------+ | oxyCODONE | Take 10 mg by mouth | | | | | Activ | | (OXYCONTIN) 10 MG 12 | every 12 (twelve) | | | | | e | | hr tablet | hours. | | | | | | + + +-------+---------+------+------+-------+ | MethylPREDNISolone | Take 1 tablet by | | | | | Activ | | (MEDROL PO) | mouth daily. | | | | | e | + + +-------+---------+------+------+-------+ | amitriptyline | Take 25 mg by mouth | | | | | Activ | | (ELAVIL) 25 MG | nightly. | | | | | e | | tablet | | | | | | | + + +-------+---------+------+------+-------+ | hydrOXYzine | Take 10 mg by mouth | | | 08/0 | | Activ | | (ATARAX) 10 MG | 4 (four) times | | | 6/20 | | e | | tablet | daily. | | | 18 | | | + + +-------+---------+------+------+-------+ | baclofen | Take 10 mg by mouth | | | 08/0 | | Activ | | (LIORESAL) 10 mg | 4 (four) times | | | 6/20 | | e | | tablet | daily. | | | 18 | | | + + +-------+---------+------+------+-------+ | FLUoxetine | Take 10 mg by mouth | | | | | Activ | | (PROZAC) 10 MG | daily. | | | | | e | | capsule | | | | | | | + + +-------+---------+------+------+-------+ | ondansetron | Take 8 mg by mouth | | | 08/0 | | Activ | | (ZOFRAN) 8 MG tablet | as needed. | | | 08/07 | | e | | | | | | 18 | | | + + +-------+---------+------+------+-------+ Active Problems + + + | Problem | Noted Date | + + + | HTN (hypertension) | 07/29/2013 | + + + | Obesity | 05/20/2013 | + + + | Microalbuminuria | 05/20/2013 | + + + | Fibromyalgia | 05/20/2013 | + + + | GERD (gastroesophageal reflux disease) | 05/20/2013 | + + + | Insomnia | 05/20/2013 | + + + | Myoclonic seizure | 05/20/2013 | + + + | Preeclampsia | 05/20/2013 | + + + + + | Overview: History of. NOT current. | + + + + + | Vitamin D deficiency | 05/20/2013 | + + + Resolved Problems + + + + | Problem | Noted | Resolved | | | Date | Date | + + + + | UTI (urinary tract infection) | 04/20/19 | | | | 15 | 5 | + + + + | Unspecified essential hypertension | 05/21/19 | | | | 14 | 4 | + + + + Family History + + +---------+ + | Medical History | Relation | Name | Comments | + + +---------+ + | Alcohol abuse | Brother | Miles | | + + +---------+ + | Asthma | Father | Keon | | + + +---------+ + | Diabetes type I | Father | Keon | | + + +---------+ + | Hypertension | Father | Keon | | + + +---------+ + | Alcohol abuse | Maternal | Luis | | | | Grandfath | | | | | er | | | + + +---------+ + | Cancer | Maternal | Luis | Prostate cancer | | | Grandfath | | | | | er | | | + + +---------+ + | Cancer | Maternal | Dejan | Colon Cancer | | | Grandmoth | | | | | er | | | + + +---------+ + | Diabetes type I | Maternal | Dejan | | | | Grandmoth | | | | | er | | | + + +---------+ + | Hypertension | Maternal | Dejan | | | | Grandmoth | | | | | er | | | + + +---------+ + | Alcohol abuse | Mother | Nadeem | | + + +---------+ + | Vision loss | Mother | Nadeem | | + + +---------+ + | Diabetes type I | Paternal | Jacob | | | | Grandfath | | | | | er | | | + + +---------+ + | Alcohol abuse | Sister | Viki | | + + +---------+ + | Alcohol abuse | Sister | Tamee | | + + +---------+ + + +---------+--------+ + | Relation | Name | Status | Comments | + +---------+--------+ + | Brother | Miles | | | + +---------+--------+ + | Father | Keon | | | + +---------+--------+ + | Maternal Grandfather | Luis | | | + +---------+--------+ + | Maternal Grandmother | Edjan | | | + +---------+--------+ + | Mother | Nadeem | | | + +---------+--------+ + | Paternal Grandfather | Jacob | | | + +---------+--------+ + | Sister | Viki | | | + +---------+--------+ + | Sister | Tamee | | | + +---------+--------+ + Social History + + + +--------+------+ | Tobacco Use | Types | Packs/Day | Years | Date | | | | | Used | | + + + +--------+------+ | Current Every Day | Cigarettes | 1 | 17 | | | Smoker | | | | | + + + +--------+------+ + +---+---+---+ | Smokeless Tobacco: | [...] + + + | Blood Pressure | 104/60 | 10/07/2017 2:02 PM PDT | + + + + | Pulse | 58 | 10/07/2017 2:02 PM PDT | + + + + | Temperature | 36.2 C (97.2 F) | 04/16/2016 2:31 PM PST | + + + + | Respiratory Rate | 16 | 06/12/2013 9:50 AM PDT | + + + + | Oxygen Saturation | 98% | 10/07/2017 2:02 PM PDT | + + + + | Inhaled Oxygen | - | - | | Concentration | | | + + + + | Weight | 89.2 kg (196 lb 11.2 | 10/07/2017 2:02 PM PDT | | | oz) | | + + + + | Height | 160 cm (5' 3") | 10/07/2017 2:02 PM PDT | + + + + | Body Mass Index | 34.84 | 10/07/2017 2:02 PM PDT | + + + + Plan [...] 19-64 | 8 | | | | (PPSV23 only) Medium | | | | | Risk (1 of 1 - | | | | | PPSV23) | | | | + + + + + | Cervical Cancer | | | | | Screening (Pap) | 9 | | | + + + + + | Vaccine: Influenza | | | | | (#1) | 9 | | | + + + + + Results Not on filefrom Last 3 Months Insurance + +--------+ +------+-------+ + | Payer | Benefi | Subscriber | Type | Phone | Address | | | t Plan | ID | | | | | | / | | | | | | | Group | | | | | + +--------+ +------+-------+ + | MEDICAID | [employer] | [id number] | | | [address] | | | [place] | | | | [place] | | | [place] | | | | [phone] | | | [employer]TER | | | | | + +--------+ +------+-------+ + + +--------+ +--------+ + + | Guarantor Name | Accoun | Relation to | Date | Phone | Billing Address | | | t Type | Patient | of | | | | | | | | | | + +--------+ +--------+ + + | ANIKET SWEENEY | Person | Self [birth year] | Home: | [address] | | | al/Fam | | 1981 | [phone] | [place] | | | paramjit | | | [phone] | [phone] | + +--------+ +--------+ + +
--- OUTSIDE RECORDS SUMMARY | ~2018-12-26 | XMS | Encounter Summary ---
Demographics + + + | Address | [address] | | | [place] [address] | + + + | Home Phone [...] Author | [facility] | + + + | Organization | [facility] | + + + | Address | [...] Team Providers + +------+ + | Care Marketing Designer Name | Role | Phone | + +------+ + | Melvina Talley | PCP | | + +------+ + Encounter Details +--------+ + + + + | Date | Type | Department | Care Team | Description | +--------+ + + + + | 03/26/ | Hospital | Diagnostic Imaging | Gloria, | | | 2017 | Encounter | Services at [facility] | Lucy Ohara PA-C | | | | | [address] | [address] | | | | | Ceci Christopher Mailcode: | [place], [place] | | | | | [address] | [address] | | | | | [place], [place] | [phone] | | | | | [address] | | | | | | [phone] | | | +--------+ + + + [...] | + +--------+ + + + | X-RAY ESOPHAGRAM | Routin | 03/26/2016 | Dysphagia, | Results for this | | | e | 11:43 AM | unspecified type | procedure are in the | | | | PST | | results section. | + +--------+ + + + | MODIFIED BARIUM | Routin | 03/26/2016 | Dysphagia, | Results for this | | SWALLOWING | e | 11:43 AM | unspecified type | procedure are in the | | | | PST | | results section. | + +--------+ + + + documented in this encounter Results X-RAY ESOPHAGRAM (03/26/2016 11:43 AM PST) + + | Specimen | + + | | + + + + + | Narrative | Performed At | + + + | EXAM: Double contrast esophagram HISTORY: Dysphagia | [facility] | | COMPARISONS: None TECHNIQUE: Fluoroscopy Time: 103 seconds. | RADIOLOGY VOICE | | Double contrast esophagram was performed using effervescent granules | RECOGNITION | | and thin and thick liquid barium with the patient in LPO and HAWK | | | positions. FINDINGS: The double contrast portion of the exam | | | is limited. No obvious mucosal abnormality is identified. The | | | esophagus is structurally normal with no obstructing mass seen. | | | Impaired primary and secondary stripping waves were seen. Tertiary | | | contractions were identified. There is a tiny hiatal hernia. No | | | gastroesophageal reflux was seen, despite the use of provocative | | | maneuvers. IMPRESSION: Esophageal dysmotility. Otherwise, | | | unremarkable esophagram. By my electronic signature listed | | | below, I, the attending radiologist, was present for the entire | | | procedure as described in this note. I have personally reviewed | | | the images and, if necessary, edited the report. I agree with the | | | report as now presented. | | + + + + + | Procedure Note | + + | Service Account, [employer] In Interface - 03/26/2016 12:03 PM PST EXAM: Double | | contrast esophagramHISTORY: DysphagiaCOMPARISONS: NoneTECHNIQUE:Fluoroscopy Time: 103 | | seconds. Double contrast esophagram was performed using effervescent granules and thin | | and thick liquid barium with the patient in LPO and HAWK positions. FINDINGS:The double | | contrast portion of the exam is limited. No obvious mucosal abnormality is identified. | | The esophagus is structurally normal with no obstructing mass seen. Impaired primary and | | secondary stripping waves were seen. Tertiary contractions were identified. There is a | | tiny hiatal hernia. No gastroesophageal reflux was seen, despite the use of provocative | | maneuvers.IMPRESSION:Esophageal dysmotility. Otherwise, unremarkable esophagram. By my | | electronic signature listed below, I, the attending radiologist, was present for the | | entire procedure as described in this note.I have personally reviewed the images and, if | | necessary, edited the report. I agree with the report as now presented. | |seen. Tertiary contractions were identified. There is a tiny hiatal hernia. No gastroesopha geal reflux was seen, despite the use of provocative maneuvers. | | | |IMPRESSION: | |Esophageal dysmotility. Otherwise, unremarkable esophagram. | | | | | |By my electronic signature listed below, I, the attending radiologist, was present for the entire procedure as described in this note. | | | | | |I have personally reviewed the images and, if necessary, edited the report. I agree with t he report as now presented. | + + + +---------+ + + | Performing | Address | City/State/Zipcode | Phone Number | | Organization | | | | + +---------+ + + | [facility] | | | | | VOICE RECOGNITION | | | | + +---------+ + + MODIFIED BARIUM SWALLOWING (03/26/2016 11:43 AM PST) + + | Specimen | + + | | + + + + + | Narrative | Performed At | + + + | EXAM: Modified Barium Swallow HISTORY: Dysphagia | [facility] | | COMPARISONS: None. TECHNIQUE: Fluoroscopy Time: 66 seconds | RADIOLOGY VOICE | | The study was performed in conjunction with Speech Pathology | RECOGNITION | | department. Patient was offered both thin and thick liquids as well | | | as purees, mixed liquids and solids, and barium coated solids as well | | | as a 12 mm tablet. Imaging utilizing videofluoroscopy was performed | | | in both frontal and lateral view. FINDINGS: Patient swallowed | | | all materials without evidence of aspiration or penetration. Normal | | | contractility was evident. No residual was noted. A barium tablet | | | rapidly traversed the pharynx and esophagus without obstruction. | | | IMPRESSION: Normal modified barium swallow Please see separate | | | Speech Pathology report. By my electronic signature listed below, | | | I, the attending radiologist, was present for the entire procedure as | | | described in this note. I have personally reviewed the images | | | and, if necessary, edited the report. I agree with the report as now | | | presented. | | + + + + + | Procedure Note | + + | Service Account, [facility] In Interface - 03/26/2016 11:54 AM PST EXAM: Modified | | Barium SwallowHISTORY: DysphagiaCOMPARISONS: None.TECHNIQUE:Fluoroscopy Time: 66 | | secondsThe study was performed in conjunction with Speech Pathology department. Patient | | was offered both thin and thick liquids as well as purees, mixed liquids and solids, | | and barium coated solids as well as a 12 mm tablet. Imaging utilizing videofluoroscopy | | was performed in both frontal and lateral view.FINDINGS:Patient swallowed all materials | | without evidence of aspiration or penetration. Normal contractility was evident. No | | residual was noted. A barium tablet rapidly traversed the pharynx and esophagus without | | obstruction.IMPRESSION:Normal modified barium swallow Please see separate Speech | | Pathology report.By my electronic signature listed below, I, the attending radiologist, | | was present for the entire procedure as described in this note.I have personally | | reviewed the images and, if necessary, edited the report. I agree with the report as | | now presented. | | | |Patient swallowed all materials without evidence of aspiration or penetration. Normal cont ractility was evident. No residual was noted. A barium tablet rapidly traversed the pharyn x and esophagus without obstruction. | | | |IMPRESSION: | |Normal modified barium swallow | | | |Please see separate Speech Pathology report. | | | |By my electronic signature listed below, I, the attending radiologist, was present for the entire procedure as described in this note. | | | | | |I have [...] + | Diagnosis | + + | Dysphagia, unspecified type | + + documented in this encounter"
--- OUTSIDE RECORDS SUMMARY | ~2018-12-26 | XMS | Encounter Summary ---
Demographics + + + | Address | [address] | | | [place] [address] | + + + | Home Phone [...] Team Providers + +------+ + | Care Legal Clerk Name | Role | Phone | + [...] | | | | | Gastro-esoph | [address] | and Healing, | | | | | ageal reflux | Phone: | Building 1, | | | | | disease | [phone] | 15th Floor | | | | | without | Fax: | [place], [place] | | | | | esophagitis | [phone] | [address] | | | | | Other | | Phone: | | | | | diseases of | | [phone] | | | | | larynx | | Fax: | | | | | Other | | [phone] | | | | | somatoform | [...] Visit | [facility] | [facility]-ALARM INSTALLATION TECHNICIAN [address] | | | | | Swallowing at [facility] | [address] | | | | | [address] | [facility] [place] | | | | | Mailcode: CH15E | [address] | | | | | [facility] | | | | | | and Healing, | | | | | | Building | | | | | | Floor [place], [place] | | | | | | [address] | | | | | | [phone] | | | +--------+ + + + [...] of this encounter Progress Notes Marj Martinez, [facility]-ALARM INSTALLATION TECHNICIAN - 08/17/2016 1:00 PM PDT VOICE THERAPY PROGRESS NOTE CLINIC: [facility] CL[facility]IC DATE: 08/17/16 REFERRING PHYSICIAN: TAMEKA Osborn PRIMARY DIAGNOSIS: 1. Dysphonia 2. Laryngeal hyperfunction 3. Globus sensation TREATMENT DIAGNOSIS: 1. Dysphonia 2. Laryngeal hyperfunction 3. Globus sensation DATE OF ONSET: 02/16/16 START OF CARE: 03/26/16 NUMBER OF SESSIONS: 3 DURATION OF SESSION: 60 min. 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 The patient lives in [place], [place], and was seen for her first [...] for further treatment [facility] [place] [facility]. The patient did appear to understand [...] conversation today. PLAN: The patient lives in [place], [place], and will return for additional treatment in [place]. Homework was provided. Marj Martinez MS, CCC-ALARM INSTALLATION TECHNICIAN Speech-Language Pathologist [facility] Department of Otolaryngology/ Head and Neck Surgery Appointments: [phone] documented in thi s encounter Plan of Treatment Not on filedocumented as of this encounter Procedures + +--------+ + + + | Procedure Name | Priori | Date/Time | Associated Diagnosis | Comments | | | ty | | | | + +--------+ + + + | [place] SPEECH/HEARING | Routin | 08/17/2016 | Dysphonia [...]
--- OUTSIDE RECORDS SUMMARY | ~2018-12-26 | XMS | Encounter Summary ---
Demographics + + + | Address | [address] | | | [place] [address] | + + + | Home Phone | | + + + | Preferred Language | Unknown | + + + | Marital Status | | + + + | Adventism Affiliation | NON | + + + [...] Team Providers + +------+ + | Care Hospice Art Therapist Name | Role | Phone | + [...] | | | | | type | [address] | [place] | | | | | Procedures | Ave | Mailcode: | | | | | CONSULT TO | [facility] [place] | [address] | | | | | ENT SPEECH | [address] | Physician's | | | | | THERAPY | Phone: | Pavilion | | | | | | [phone] | [place], [place] | | | | | | Fax: | [address] | | | | | | [phone] | Phone: | | | | | | | [phone] | | | | | | | Fax: | | | | | | | [phone] | +--------+--------+ + + + + Encounter Details +--------+ + + + + | Date | Type | Department | Care Team | Description | +--------+ + + + + | 03/26/ | Diagnostic | Otolaryngology | Matthias Wright, | | | 2017 | Visit | Speech Therapy | HEMMING AND TACKING MACHINE OPERATOR [address] | | | | | Services at [facility] | [address] | | | | | [address] | [place] [address] | | | | | [place] Mailcode: | [phone] | | | | | [address] Physician's | | | | | | [place], | | | | | | [place] [address] | | | | | | [phone] | | | +--------+ + + + [...] be different fro m the original. Clinic: [facility] Referring Physician: Lucy Castro PA-C [address] [place] [address] PCP: TAMEKA Mistry Medical Diagnosis: No diagnosis [...] 35 y.o. female who presents to the [facility] for foll ow up of [...] and s moking cessation). Matthias Wright, PhD, CCC-HEMMING AND TACKING MACHINE OPERATOR [facility] Dept. of Otolaryngology, [address] [place] [address] documented in this en counter Plan of Treatment Not on filedocumented as of this encounter Visit Diagnoses Not on filedocumented in this encounter"
--- OUTSIDE RECORDS SUMMARY | ~2018-12-26 | XMS | Encounter Summary ---
Demographics + + + | Address | [address] | | | [place] [address] | + + + | Home Phone | | + + + | Preferred Language | Unknown | + + + | Marital Status | | + + + | Amish Affiliation | NON | + + + | Race | White | + + + | Ethnic Group | Not or | + + + Author + + + | Author | [facility] | + + + | Organization | [facility] | + + + | Address | Unknown | + + + | Phone | Unavailable | + + + Support + + +---------+ + | Name | Relationship | Address | Phone | + + +---------+ + | Edmond Sweeney | ECON | Unknown | | + + +---------+ + | Kentrell Crwo | ECON | Unknown | | + + +---------+ + Care Team Providers + +------+ + | Care Blister Packaging Machine Operator Name | Role | Phone | [...] | | | | status | | [place], [place] | | | | | epilepticus | | [address] | | | | | Procedures | | Phone: | | | | | MS NEW | | [phone] | | | | | PATIENT | | Fax: | | | | | LEVEL V MS | | [phone] | | | | | EST PATIENT [...] (Primary | | 2019 | Visit | [place] [facility] | [address] | Dx); RLS (restless | | | | Healing [address] | [place], [place] | legs syndrome); | | | | [address] Mailcode: | [address] | Abdominal pain, | | | | [facility] | [phone] | unspecified | | | | Health and Healing, | | abdominal location; | | | | Building 1, | | Hypovitaminosis D | | | | Floor [place], [place] | | | | | | [address] | | | | | | [phone] | | | +--------+---------+ + + + [...] RN - 03/14/2018 2:[facility] PM [facility] from 05/06/2013 to [facility] impaxElectronically signed by Chelle Mckeon RN at 9 10:46 AM Keon Navarro MD - 03/14/2018 2:35 PM PST [facility] NEUROLOGY CLINIC Consultation Visit Today's Date: [...] the patient. HPI: She was seen at [facility] on 12/09/2017 by neurology resident Antonio [...] multiple neurologists; [facility] Nguyen [facility] [employer] in 2013 most recently who suspected myoclonus. Per patient, she had an EEG which captured t hem and was told that the EEG was normal (work-up done in [place], [place]). She was not started on medications, but referred to [facility] neurology for further evaluation/treatment options. She saw Neurology at [facility]; Dr Hauser in 02/2015 who suspected [...] anxiety, restless leg syndrome, CKD (due to [facility] NSAID use), HTN, esophageal dysmotil ity, uterine [...] 0.60 - 1.10 mg/dL 0.67 EGFR - CANADIAN >60 mL/min >60 EGFR NON -CANADIAN >60 mL/min >60 SODIUM, PLASMA (LAB) 136 [...] woman who is referred for neurological consultat [facility] for evaluation of a constellation of symptoms, [...] erapy. She had [facility], 04/[facility]; will request imaging. Her examination is [...] consistent with her episodic worsening, could con pattern grader cutter repeating this testing in the future. She [...] PORPHOBILINOGEN, URINE ALA, URINE COMP METABOLIC SET [[id number]] CBC, WITH DIFFERENTIAL [[id number]] VITAMIN D, 25-HYDROXY, SERUM [[id number]] levETIRAcetam 750 mg oral tablet I spent 75 minutes with the patient during the visit. More than half of the visit was spent counseling the patient. Keon Gerber MD Neurology Department [facility] Pager [phone] documented in this en counter Plan of [...] | [facility] | | | URINE | [employer],[address] | | REG UNIV | | | CONCENTRATI | [facility] | | PTH - INTFC | | | [place] | [address] | | | | | | [phone].[employer]. | | | | | | Kaleb [...] [facility] | [address] | [place], [place] | | | UNIV PTH - INTFC | | [address] | | + + + + + [...] | | | N, URINE | | ORTHOPEDIC RADIOLOGIC TECHNOLOGIST | REG UNIV | | | ([facility]) | | | PTH - INTFC | | + + + + + + | HEPTACARBOX | <1 | 0 - 2 umol/mol | [facility] | | | YLATE | | ORTHOPEDIC RADIOLOGIC TECHNOLOGIST | REG UNIV | | | PORPHYRIN(A | | | PTH - INTFC | | | RUP) | | | | | + + + + + + | COPROPORPHY | 3 | 0 - 6 umol/mol | [facility] | | | RIN I | | ORTHOPEDIC RADIOLOGIC TECHNOLOGIST | REG UNIV | | | | | | PTH - INTFC | | + + + + + + | COPROPORPHY | 10 | 0 - 14 umol/mol | [facility] | | | RIN III | | ORTHOPEDIC RADIOLOGIC TECHNOLOGIST | REG UNIV | | | | [...] | | | | | determined by [facility] | | | | | | Laboratories. See | | | | | | Compliance Statement B: | | | | | | [employer]Cloud [employer]/CSPerformed | | | | | | by [employer],[address] | | | | | | Marlon Bustos [facility] | | | | | | [address] | | | | | | [phone].[employer]. | | | | | | comKaleb [...] [facility] | [address] | [place], [place] | | | UNIV PTH - INTFC | | [address] | | + + + + + [...] | + + + + + | [facility] | [address] | [place] [address] | | | SERVICES, JONATHAN | NATASHA [...] | | | LABORATORY | | | CANADIAN | | | SERVICES, | | | [...] + + + | [facility] | [address] | [place] [address] | | | SERVICES, JONATHAN | NATASHA [...] | + + + + + | [facility] | [address] | [place] [address] | | | SERVICES, CORE | PARK [...]
--- OUTSIDE RECORDS SUMMARY | ~2018-12-26 | XMS | Encounter Summary ---
Demographics + + + | Address | [address] | | | [place] [address] | + + + | Home Phone [...] Team Providers + +------+ + | Care Graphic Arts Instructor Name | Role | Phone | + +------+ + | Mevlina Talley | PCP | | + +------+ [...] Questions About | | 2019 | | [facility] & | MD [address] | Diagnosis | | | | Healing [address] | [place], [place] | | | | | [address] Mailcode: | [address] | | | | | [facility] | [phone] | | | | | Health and Healing, | | | | | | [facility] | | | | | | [place], [place] | | | | | | [address] | | | | | | [phone] | | | +--------+ + + + [...]
--- OUTSIDE RECORDS SUMMARY | ~2018-12-26 | XMS | Encounter Summary ---
Demographics + + + | Address | [address] | | | [place] [address] | + + + | Home Phone | | + + + | Preferred Language | Unknown | + + + | Marital Status | | + + + | Pentecostal Affiliation | NON | + + + | Race | White | + + + | Ethnic Group | Not or | + + + Author + + + | Author | [facility] | + + + | Organization | [facility] | + + + | [...] Team Providers + +------+ + | Care Lieutenant/Deputy Name | Role | Phone | + [...] [address] | | | | | [address] | [place], [place] | | | | | Ceci Christopher Mailcode: | [address] | | | | | [address] Outpatient | [phone] | | | | | Clinic Building | | | | | | [place], [place] | | | | | | [address] | | | | | | [phone] | | | +--------+ + + + [...] DEWAYNE, | | | | | [facility] | ABELARDO Ramey, | | | | [...] | | + +---------+ + + | [facility] DEPARTMENT OF | | | | | RADIOLOGY | | | | + +---------+ + + documented in this encounter Visit Diagnoses Not on filedocumented in this encounter"
--- OUTSIDE RECORDS SUMMARY | ~2018-12-26 | XMS | Encounter Summary ---
Demographics + + + | Address | [address] | | | [place] [address] | + + + | Home Phone | | + + + | Preferred Language | Unknown | + + + | Marital Status | | + + + | Judaism Affiliation | NON | + + + | Race | White | + + + | Ethnic Group | Not or | + + + Author + + + | Author | [facility] | + + + | Organization | [facility] | + + + | Address [...] Team Providers + +------+ + | Care Wire Wrapper Machine Operator Name | Role | Phone [...] Sleep | Diagnoses | Rosalina | Mikaela Bowersor | | | | Medicine | Snoring | Francesco | Joao Damico | | | | | Obesity (BMI | DAVEY Latham | [address] | | | | | 30-39.9) | [address] | [place] | | | | | Essential | [facility] | Mailcode: | | | | | hypertension | Rd | [address] | | | | | Procedures | [place], [place] | [place], [place] | | | | | SPLIT | [address] | [address] | | | | | NIGHT PSG | Phone: | Phone: | | | | | MA | [phone] | [phone] | | | | | POLYSOMNOGRA | Fax: | Fax: | | | | | PHY W/CPAP | [phone] | [phone] | +--------+--------+ + + + + Encounter Details +--------+ + + + + | Date | Type | Department | Care Team | Description | +--------+ + + + + | 05/30/ | Diagnostic | Sleep Disorder | Mera Ma MD | Full sleep study | | 2017 | Visit | [facility] | [address] | | | | | [address] [place], | | | | | [place] Mailcode: | [place] [address] | | | | | [address] [place], [place] | [phone] | | | | | [address] | | | | | | [phone] | | | +--------+ + + + [...] documented as of this encounter Progress Notes Benson Cerna - 05/31/2016 6:37 AM BEHZAD Kendall was seen in the Sleep Disorders Program today, 05/30/2016, Split Night PSG - did not meet criteria. Diagnostic PSG [[id number]] sleep study performed.Electronically s igned by Benson [...] polysomnographic study (PSG) was performed at the [facility] Sleep Laboratory accord ing to the standard protocol as described by the [place] [employer]: EEG: Gold cup [...] via ceiling mounted IR sensitive camera, IR yacht captain and wall mounted microph one. Scoring Methodology: This study was scored using the [place] [employer] guidelines for periodic [...] 0.0/hr). Mera Ma MD Sleep Disorders Program [facility] Electronically signed by Mera Ma MD on June 04, 2016 at 11:24:59 AM Gallo Garcia - 05/31/19 17 8:00 PM PDT [facility] Sleep Disorders Testing Sleep Disorders Program Polysomnography Report [address], [address] [place] [address] / Patient: Aniket Kendall Study Type: PSG : 1980 Patient Details: Female, 35 years, Height 5' 3", Weight 193 lbs, BMI 34.18 CSN: [id number] Recording Details: Recorded at 10:46:09 PM on 05/30/2016 Physician: Mera Ma MD for 435 minutes. Ref. Physician: Lucy Castro Scoring Details: Last scored by ROSIE Summers Repairer Pump: ROSIE Leigh on 06/01/2016 at 3:24:11 PM. [...] in this encount er Plan of Treatment Not on filedocumented as of this encounter Procedures + +--------+ + + + | Procedure Name | Priori | Date/Time | Associated Diagnosis | Comments | | | ty | | | | + +--------+ + + + | MA POLYSOMNOGRAPHY, | Routin | 06/04/2016 | Snoring [...] | + +--------+ + + + | MA POLYSOMNOGRAPHY,4 | Routin | 05/31/2016 | Snoring [...] disordered breathing. EKG was unremarkable. EMG was unremarkable. | | | PLM index was 0.0 and PLM index with arousal was 0.0. | | | Recommendations: 1. Auto PAP, Minimum = 5, Maximum = 15 vs | | | attended study based on clinical presentation of symptoms. 2. Avoid | | | supine sleep. Consider positional restriction devices such as REMatee | | | or Zzoma belts which purchased online. 3. Some patients with | | | failure of CPAP or mild sleep apnea may have additional medical, | | | dental or surgical treatment options depending on clinical | | | correlation. 4. Return to Sleep Disorders Program to discuss these | | | results with Dr. Ma. | | + + + + +---------+ + + | Performing | Address | City/State/Zipcode | Phone Number | | Organization | | | | + +---------+ + + | [facility] | | | | | SLEEP STUDIES | | | | + +---------+ + + | [facility] | | [place], [place] | | | SLEEP STUDIES | [...]
--- OUTSIDE RECORDS SUMMARY | ~2018-12-26 | XMS | Encounter Summary ---
Demographics + + + | Address | [address] | | | [place] [address] | + + + | Home Phone [...] Team Providers + +------+ + | Care Communications Clerk Name | Role | Phone | + +------+ + | Melvina TalleyP | PCP | | + +------+ + Encounter Details +--------+ + + + + | Date | Type | Department | Care Team | Description | +--------+ + + + + | 11/26/ | MyChart | Neurology at | Keon Gerber, | RE: Ambulatory EEG | | 2019 | Encounter | [address] [address] | [address] | | | | | [address] | [place], [place] | | | | | [place], [place] | [address] | | | | | [address] | [phone] | | | | | [phone] | | | +--------+ + + + [...]
--- OUTSIDE RECORDS SUMMARY | ~2018-12-26 | XMS | Encounter Summary ---
Demographics + + + | Address | [address] | | | [place] [address] | + + + | Home Phone | | + + + | Preferred Language | Unknown | + + + | Marital Status | | + + + | Rastafarian Affiliation | NON | + + + [...] Providers + +------+ + | Care Graphic Coordinator Name | Role | Phone | + +------+ + | Melvina TalleyP | PCP | | + +------+ + Encounter Details +--------+ + + + + | Date | Type | Department | Care Team | Description | +--------+ + + + + | 06/11/ | Labor Commissioner | Otolaryngology | Gloria, | Odynophagia (Primary | | 2016 | | Laryngology Services | Lucy E, PA-C | Dx) | | | | at [address] | [address] | | | | | [address] [place], | [place], [place] | | | | | [place] [address] | [address] | | | | | [phone] | [phone] | | | | | | | [...] filedocumented as of this encounter Visit Diagnoses + + | Diagnosis | + + | Odynophagia - Primary Dysphagia, unspecified | + + documented in this encounter"
--- OUTSIDE RECORDS SUMMARY | ~2018-12-26 | XMS | Encounter Summary ---
Demographics + + + | Address | [address] | | | [place] [address] | + + + | Home Phone | | + + + | Preferred Language | Unknown | + + + | Marital Status | | + + + | Lutheran Affiliation | NON | + + + [...] Team Providers + +------+ + | Care Training And Documentation Specialist Name | Role | Phone | + +------+ + | Unknown | PCP | Unavailable | + +------+ + Encounter Details +--------+ + + + + | Date | Type | Department | Care Team | Description | +--------+ + + + + | 12/06/ | Abstract | Digestive Health | Clinic, | | | 2018 | | [facility] [address] | Gastroenterology | | | | | [address] | | | | | | Mailcode: [facility] | | | | | | for Health and | | | | | | Healing, [address] | | | | | | [place], [place] | | | | | | [address] | | | | | | [phone] | | | +--------+ + + + [...]
--- OUTSIDE RECORDS SUMMARY | ~2018-12-26 | XMS | Clinical Summary ---
Demographics + + + | Address | [address] | | | [place] [address] | + + + | Home Phone | | + + + | Preferred Language | Unknown | + + + | Marital Status | | + + + | Taoism Affiliation | Unknown | + + + | Race | Unknown | + + + | Ethnic Group | Unknown | + + + Author + + + | Author | [facility] | | | and Brandynana | + + + | Organization | [facility] | | | and Brandynana [...] Team Providers + +------+ + | Care Trim Setter Name | Role | Phone | + +------+ + | Melvina Talley | PCP | | | WASHER ASSEMBLER | | | + +------+ + Allergies [...] 11/08/2016 | + + + | Other supervisor intermediates (current) drug therapy | 11/08/2016 | + [...] Gastroenterology) | +--------+ + + + + from [...] 89.2 kg (196 lb 11.2 | 10/07/2017 140 PDT | | | oz) | | + + + + | Height | 160 cm (5' 3") | 10/07/2017 1408 PDT | + + + + | Body Mass Index | 34.84 | 10/07/2017 1408 PDT | + + + + Plan [...] | [employer] | [facility] | [id number] | | [phone] | | Medica | [...] | Self | [birth year] | [address] | | | josse/Woody | | 1981 | [phone] | [place] [address] | | | paramjit | | | 6 (Home) | | + +--------+ +--------+ + + Advance Directives Patient has advance care planning documents on file. For more information, please contact:[facility] [place] [address]
--- OUTSIDE RECORDS SUMMARY | ~2018-12-26 | XMS | Encounter Summary ---
Demographics + + + | Address | [address] | | | [place] [address] | + + + | Home Phone | | + + + | Preferred Language | Unknown | + + + | Marital Status | | + + + | Synagogue Affiliation | NON | + + + | Race | White | + + + | Ethnic Group | Not or | + + + Author + + + | Author | [facility] | + + + | Organization | [facility] | + + + | [...] Team Providers + +------+ + | Care Form Maker Name | Role | Phone | + +------+ + | Melvina TalleyP | PCP | | + +------+ + Encounter Details +--------+ + + + + | Date | Type | Department | Care Team | Description | +--------+ + + + + | 06/27/ | MyChart | [facility] | Luis E Manriquez I, | I need your | | 2016 | Encounter | [facility] [address] | MD | help...again | | | | [address] | | | | | | Mailcode: [facility] | | | | [facility] for [facility] | | | | | | and Healing, | | | | | | Building [address], | | | | | | [place], [place] | | | | | | [address] | | | | | | [phone] | | | +--------+ + + + [...]
--- OUTSIDE RECORDS SUMMARY | ~2018-12-26 | XMS | Encounter Summary ---
Demographics + + + | Address | [address] | | | [place] [address] | + + + | Home Phone [...] Team Providers + +------+ + | Care Toy Assembly Supervisor Name | Role | Phone | + [...] | | | | | Abnormal | [place], [place] | | | | | | brain scan | [address] | | | | | | Myoclonus | Phone: | | | | | | Migraine | [phone] | | | | | | without | Fax: | | | | | | aura, not | [phone] | | | | | | intractable, [...] | | | | | | | [place] MRI, [facility] | | | | | [...] | | | | hand | MD [address] | | | | | | numbness | [address] | | | | | | Abnormal | [place], [place] | | | | | | brain scan | [address] | | | | | | Myoclonus | Phone: | | | | | | Migraine | [phone] | | | | | | without | Fax: | | | | | | aura, not | [phone] | | | | | | intractable, [...] | | | | | | | [place] MRI | | | | | | [...] Medication | | 2019 | | [facility] & | MD [address] | management | | | | Healing [address] | [place], [place] | | | | | [address] Mailcode: | [address] | | | | | [facility] | [phone] | | | | | Health and Healing, | | | | | | [facility] | | | | | | [place], [place] | | | | | | [address] | | | | | | [phone] | | | +--------+ + + + [...] as of this encounter Plan of Treatment + +---------+--------+ + + | Name | [...]
--- OUTSIDE RECORDS SUMMARY | ~2018-12-26 | XMS | Encounter Summary ---
Demographics + + + | Address | [address] | | | [place] [address] | + + + | Home Phone [...] Team Providers + +------+ + | Care Economic Research Assistant Name | Role | Phone | + [...] | | 2015 | | Center at [facility] [address] | ,[facility] | surgery on Saturday, | | | | [address] | | woke up last night | | | | Mailcode: [facility] | | and sneezed and had | | | | [facility] | | some bleeding, but | | | | and Healing, | | no other bleeding | | | | [address] | | today. Having a lot | | | | Floor [place], [place] | | of lightheadedness | | | | [address] | | and nausea. Took BP | | | | [phone] | | and it was 94/60, | [...]
--- OUTSIDE RECORDS SUMMARY | ~2018-12-26 | XMS | Encounter Summary ---
Demographics + + + | Address | [address] | | | [place] [address] | + + + | Home Phone [...] Team Providers + +------+ + | Care Concaving Machine Operator Name | Role | Phone | + +------+ + | Melvina Talley | PCP | | + +------+ + Encounter Details +--------+ + + + + | Date | Type | Department | Care Team | Description | +--------+ + + + + | 03/14/ | MyChart | Neurology at | Keon Gerber, | RE:Labs | | 2019 | Encounter | [facility] & | MD [address] | | | | | [address] | [place], [place] | | | | | [address] Mailcode: | [id number] | | | | | [facility] | [phone] | | | | | Health and Healing, | | | | | | [facility] | | | | | | [place], [place] | | | | | | [address] | | | | | | [phone] | | | +--------+ + + + [...]
--- OUTSIDE RECORDS SUMMARY | ~2018-12-26 | XMS | Encounter Summary ---
Demographics + + + | Address | [address] | | | [place] [address] | + + + | Home Phone [...] Team Providers + +------+ + | Care Lace Roller Name | Role | Phone | + +------+ + | Melvina Talley | PCP | | + +------+ + Reason for Visit + + + | Reason | Comments | + + + | Follow-up visit | | + + + Benefits Check (Routine) +--------+--------+ + + + + | Status | Reason | Specialty | Diagnoses / | Referred By | Referred To | | | | | Procedures | Contact | Contact | +--------+--------+ + + + + | Closed | | Otolaryngolog | Diagnoses | Non-[facility] | Biggs, | | | | y | Other | Epic Dept | Haroon Sue, | | | | | chronic | | MD,[facility] [address] | | | | | sinusitis | | [address] | | | | | | | [place], [place] | | | | | | | [address] | +--------+--------+ + + + + Encounter Details +--------+---------+ + + + | Date | Type | Department | Care Team | Description | +--------+---------+ + + + | 07/26/ | Office | [facility] | Carmelita Craig, | Chronic ethmoidal | | 2015 | Visit | Center at [facility] [address] | PA-C [address] | sinusitis (Primary | | | | [address] | [address] [place], [place] | Dx); Chronic | | | | Mailcode: CH5E | [address] | maxillary sinusitis | | | | [facility] | [phone] | | | | | and Healing, | | | | | | Building [address], | | | | | | [place], [place] | | | | | | [address] | | | | | | [phone] | | | +--------+---------+ + + + [...] encounter Progress Notes Carmelita Craig PA-C - 07/27/2015 1:33 PM PDT [facility] HPI: Aniket Kendall is a 35 y.o. female who presents to the [facility] for fol low up of Chronic rhinosinusitis and S/P Sinus Surgery. She is s/p sinus surgery (03/01/2015) with Dr. Biggs. Last seen 04/07/2015. Current symptoms include nasal congestion, headache, fa cial pressure, globus and foul odor in her nose. She describes some dysphagia and feels madonna t food occasionally gets stuck in the back of her throat. Symptoms began 4-6 weeks ago. Sym ptom severity is moderate. Improvement occurred with Nothing. She does have symptoms of he artburn and takes two 20mg omeprazole tablets in a day. She smokes about 1ppd for the last 1 7 years. No history of allergy testing. She was treated with MDP in 04/2015 and 06/2015. She has also been treated with Bactrim and t wo rounds of Avelox since February. Currently using irrigations with budesonide BID. Current Outpatient Prescriptions Medication Sig amitriptyline 25 mg oral tablet Take 1 tablet by mouth once daily at bedtime. BUDESONIDE NASL Instill 0.6 mg in nose two times daily. Mix with [employer] sinus irrigati ons. Irrigate BID. Sent to [facility] cyclobenzaprine 10 mg oral tablet Take [...] limits. Neck reveals no mass, adenopathy, or thyrome deysi. Salivary glands are normal to palpation. PROCEDURE: Diagnostic Nasal Endoscopy Anesthesia: Lidocaine 4% topical anesthetic Description of Procedure: A rigid endoscope was utilized to evaluate the sinonasal cavities , mucosa, sinus ostia and turbinates. Overall, signs of mucosal inflammation are noted. Sin us belinda are patent bilaterally. No evidence of purulence. ASSESSMENT: Chronic rhinosinusitis, Chronic rhinitis and S/P Sinus Surgery. We've discussed issues and options today. The risks, benefits and alternatives were discus sed and questions answered. She has elected to proceed with a trial of Astelin and return f or follow up in 6 week(s). If no improvement we may consider a flexible laryngoscopy and bar ium swallow study in the future. documented in this encounter Plan of Treatment Not on filedocumented as of this encounter Procedures + +--------+ + + + | Procedure Name | Priori | Date/Time | Associated Diagnosis | Comments | | | ty | | | | + +--------+ + + + | SD NASAL | Routin | 07/27/2015 | Chronic ethmoidal | | | ENDOSCOPY,DX | e | 4:02 PM | sinusitis Chronic | | | | | PDT | maxillary sinusitis | | + +--------+ + + + documented in this encounter Visit Diagnoses + + | Diagnosis | + + | Chronic ethmoidal sinusitis - Primary | + + | Chronic maxillary sinusitis | + + documented in this encounter"
--- OUTSIDE RECORDS SUMMARY | ~2018-12-26 | XMS | Encounter Summary ---
Demographics + + + | Address | [address] | | | [place] [address] | + + + | Home Phone [...] Author | [facility] | + + + | Organization | [facility] | + + + | Address | Unknown | + + + | Phone | Unavailable | + + + Support + + +---------+ + | Name | Relationship | Address | Phone | + + +---------+ + | Edmond Sweeney | ECON | Unknown | | + + +---------+ + | Kenrtell Crow | ECON | Unknown | | + + +---------+ + Care Team Providers + +------+ + | Care Packer Operator Automatic Name | Role | Phone | + +------+ + PCP | Unavailable | + +------+ + Encounter Details +--------+ + + + + | Date | Type | Department | Care Team | Description | +--------+ + + + + | 01/18/ | Office | [facility] | Note, Outpatient | Progress Note | | 1998 | Visit-Trans | MEDICINE | Clinic | [...] as of this encounter Progress Notes Interface, Sales Director In - 02/23/2006 1:01 AM PSTCLINIC DATE: 01/18/1998 [facility] CLINIC SUBJECTIVE: Ms. 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 The patient's complaints are of generalized fatigue, headaches with visual disturbance and ataxia, and three separate episodes of loss of consciousness. 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 The patient has had bad headaches since she was 12 or 13 years old. She reports that from that age until about eight months ago she had headaches every other day. About eight months ago, her headaches became an every day phenomenon, and she also complained of generalized weakness, fatigue and was constantly dropping things. She sought medical attention, and no etiology was apparent. Extensive serologic workup was completed which revealed normal electrolytes, normal CPK, negative rheumatoid factor, normal complements, normal cortisol, normal aldolase, normal sedimentation rate. She did have a slightly elevated C-reactive protein at 1.5. She had a normal TSH. She had a normal CBC. She had a negative acetylcholine receptor antibody titer. She has a negative parathyroid hormone. About two months ago, her headaches became associated with visual disturbance and ataxia. She reports that she has a mild headache upon awakening in the morning, about a 4/10, but that every evening her headache gradually increases in severity to the range of 8/10. She does not have any significant nausea or vomiting with the headaches. Since mid-October, however, she has become ataxic when the headache gets very severe, and she walks "as if she is drunk." She will then rest and invariably will develop bright, twinkling lights in all visual burns to the point where she is unable to see. She will eventually fall asleep and awaken in the morning with a mild headache and none of the other neurologic symptoms. On three occasions, she has actually had a loss of consciousness. One of these occurred on December 18, when her neighbor in her apartment building heard her thrashing and gagging in the bathtub and went in to her apartment to pull her out of the bathtub. She has no memory for this episode, although she apparently called her parents and ex-. Her parents came to pick her up and took her to the emergency room in [place]. They found an unremarkable examination and discharged her from the emergency room. She did have resumption of her memory during her emergency room stay. There was no tongue biting. It is unknown whether there was any urinary or bowel incontinence. The next episode occurred on December 19. She has a memory lapse for eight or nine hours. She was apparently taken to her father's house, but no other details are known. The third episode occurred around January 02. She awoke on the floor in her apartment. With none of the episodes was there any tongue biting or incontinence. There has been no other history of staring spells or unusual episodes. There has never been a history of a linda generalized tonic-clonic seizure. In the course of evaluation of these episodes, she had a brain MRI scan completed in [place], which was read as showing right hippocampal sclerosis. She has not been started on any anticonvulsant therapy. She has not had any EEGs. PAST MEDICAL HISTORY: There is no history of closed head trauma and no history of meningitis or encephalitis. She apparently had a normal and delivery. She has had no hospitalizations except for a tonsillectomy. MEDICATIONS: 1. Aleve. 2. Ibuprofen. ALLERGIES: Penicillin. FAMILY HISTORY: The only family history of seizures is in the maternal grandfather, who developed seizures after an aneurysm. SOCIAL HISTORY: She has a 10th-grade education and subsequently got her GED. She apparently was doing okay in school, with no special education and no staring spells or other problems with school performance. She was kicked out of her home at age 13 due to a disagreement over her boyfriend, who she subsequently . She has supported herself since age 13 or 14, and she at 16 but is now . She is living alone in [place]. Her father and stepmother live nearby and are supportive. They actually drove her to the appointment today. She smokes a pack of cigarettes per day. She drinks alcohol only very rarely. She denies any other recreational drug use (she did have a negative tox screen on December 18 in the emergency room in [place]). PHYSICAL EXAMINATION: In general, this is a well-developed, well-nourished young woman in no acute distress. VITAL SIGNS: Weight is 171 pounds, blood pressure 140/90, heart rate 78 and regular. MENTAL STATUS: She is alert and lucid. She is able to provide the history very clearly on her own, and the history as given is compatible with medical records and with that obtained from her father and stepmother. Formal mental status testing was not performed. There are no functional findings. CRANIAL NERVES: The pupils are equal, round, and reactive to light. The fundi are benign. Visual burns are full to confrontation. Eye movements are full and conjugate. There is no nystagmus. There is no intranuclear ophthalmoplegia. Facial sensation and facial movements are intact and symmetric. Hearing is intact to finger rub bilaterally. The palate and tongue move normally. There is no dysarthria. MOTOR: There is no pronator drift. Strength is 5/5 both proximally and distally. Bulk and tone are completely normal. DEEP TENDON REFLEXES: Biceps right 2, left 2. Triceps right 2, left 2. Brachioradialis right 2, left 2. Patellar right 2, left 2. Ankle jerk right 2, left 2. Plantar response is downgoing bilaterally. SENSORY: Light touch, pinprick, vibration, proprioception are intact in all four extremities. COORDINATION: [id number] and bsaa-[id number]-gunm are within normal limits. Casual gait, tandem gait, heel walk, and toe walk are also within normal limits. LABORATORY DATA: The serologic findings are described above. A brain MRI scan completed in [place] is available for review. It is of fair technical quality. On a single coronal cut, there does appear to be significant hippocampal atrophy on the right. This is a T1 study, and I do not appreciate any signal change. On a T2 study, on an axial cut, there does appear to be an increase in the signal in the hippocampus on the right--again, a single study. Also, there appears to be slight enlargement of the temporal horn on the right as compared to the left on multiple views. IMPRESSION: 1. History most compatible with migraine headaches, possibly basilar migraines. 2. 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 The differential diagnosis surrounds a migrainous phenomenon versus a seizure disorder. I would favor the former based on the history, but I have to agree that the brain MRI scan is fairly impressive. If an EEG does show epileptiform abnormalities in the right temporal lobe, we should make a presumptive diagnosis of temporal lobe seizure disorder to explain at least the three episodes of loss of consciousness. I do not know if that diagnosis would cover her headaches, visual changes, and ataxia. If there are no epileptiform discharges on an EEG, I think a repeat MRI with special temporal lobe cuts to clarify the question of hippocampal sclerosis is in order, and we should give more serious attention to the diagnosis of migraines and treat accordingly. I agree that she should not drive until this is sorted out. PLAN: 1. Routine EEG. 2. If the EEG is epileptiform, we will initiate anticonvulsant therapy. If it is not epileptiform, we will initiate antimigraine therapy. I would also, however, like to see a brain MRI with temporal lobe cuts to more definitely assess the question of hippocampal sclerosis. 3. She is not to drive until the diagnostic issues are sorted out. Isaac Long M.D. Sports Medicine Trainer, Neurology RODGER/leticia cc: GARRY WAY MD [address] [place] [id number] signed by Interface, Sales Director In at 02/23/2006 1:01 AM PSTdocumented in this encounter Plan of Treatment Not on filedocumented as of this encounter Visit Diagnoses Not on filedocumented in this encounter
--- OUTSIDE RECORDS SUMMARY | ~2018-12-26 | XMS | Encounter Summary ---
Demographics + + + | Address | [address] | | | [place] [address] | + + + | Home Phone | | + + + | Preferred Language | Unknown | + + + | Marital Status | | + + + | Scientology Affiliation | NON | + + + [...] Team Providers + +------+ + | Care Client Support Administrator Name | Role | Phone | + [...] PA-C | | | | | at [facility] [address] | [address] | | | | | [address], | [place], [place] | | | | | [place] [address] | [address] | | | | | [phone] | [phone] | | | | | | | [...]
--- OUTSIDE RECORDS SUMMARY | ~2018-12-26 | XMS | Clinical Summary ---
Demographics + + + | Address | [address] [place] [address] St. | | | [place] [address] | + + + | Home Phone | | + + + | Preferred Language | Unknown | + + + | Marital Status | | + + + | Religion Affiliation | NON | + + + | Race | White | + + + | Ethnic Group | Not or | + + + Author + + + | Author | [facility] | + + + | Organization | [facility] | + + + | Address | [...] Team Providers + +------+ + | Care Packing Floor Worker Name | Role | Phone | + +------+ + | Melvina TalleyP | PCP | | + +------+ + Source Comments ANSHU is fully live on both EpicCare Ambulatory and EpicCare InPatient.[facility] Allergies + + + + + + [...] | + + + +---------+------+------+-------+ | omeprazole 20 mg | Take 20 mg by mouth | | 0 | | | Activ | | oral capsule,delayed | every twelve hours. | | | | | e | | release(/MIKAL) | | | | | | | + + + +---------+------+------+-------+ | lisinopril 5 mg | Take 5 mg by mouth | | 0 | | | Activ | | oral tablet | once daily. | | | | | e | + + + +---------+------+------+-------+ | zolpidem 10 mg | Take 10 mg by mouth | | 0 | | | Activ | | oral tablet | once daily at | | | | | e | | | bedtime as needed | | | | | | | | for sleep. | | | | | | + + + +---------+------+------+-------+ | FLUoxetine 10 mg | Take 10 mg by mouth | | 0 | | | Activ | | oral capsule | once daily. | | | | | e | + + + +---------+------+------+-------+ | rOPINIRole 1 mg | Take 1 mg by mouth | | 0 | | | Activ | | oral tablet | once daily in the | | | | | e | | | evening. | | | | | | + + + +---------+------+------+-------+ | ondansetron 8 mg | Take 8 mg by mouth | | 0 | | | Activ | | oral tablet | once daily as | | | | | e | | | needed. | | | | | | + + + +---------+------+------+-------+ | baclofen 10 mg | Take 10 mg by mouth | | 0 | | | Activ | | oral tablet | four times daily. | | | | | e | + + + +---------+------+------+-------+ | hydrOXYzine 10 mg | Take 10 mg by mouth | | 0 | | | Activ | | oral tablet | four times daily. | | | | | e | + + + +---------+------+------+-------+ | LORazepam 1 mg | Take 1 mg by mouth | | 0 | | | Activ | | oral tablet | as needed for | | | | | e | | | anxiety (1 mg in AM, | | | | | | | | 1 mg in afternoon, | | | | | | | | 2 mg qhs). | | | | | | + + + +---------+------+------+-------+ | promethazine 12.5 | Take 12.5 mg by | | 0 | | | Activ | | mg oral tablet | mouth four times | | | | | e | | | daily as needed for | | | | | | | | nausea/vomiting. | | | | | | + + + +---------+------+------+-------+ | cyanocobalamin | Inject 1,000 mcg | | 0 | | | Activ | | 1,000 mcg/mL | under the skin | | | | | e | | injection solution | (SUBC) every seven | | | | | | | | days. | | | | | | + + + +---------+------+------+-------+ | oxyCODONE | Take 10 mg by mouth | | 0 | | | Activ | | (immediate release) | as needed. | | | | | e | | 10 mg oral tablet | | | | | | | + + + +---------+------+------+-------+ | ergocalciferol | Take 1 capsule by | 10 | 0 | 01/2 | | Activ | | (VITAMIN D2) 50,000 | mouth every seven | capsule | | 5/20 | | e | | unit oral capsule | days. | | | 19 | | | + + + +---------+------+------+-------+ | budesonide 0.5 | Add 2ml to 240ml | 360 mL | 3 | 05/0 | | Activ | | mg/2 mL inhalation | saline irrigations | | | 8/20 | | e | | suspension for | an irrigate BID | | | 19 | | | | nebulization | | | | | | | + + + +---------+------+------+-------+ | levETIRAcetam 750 | Take 2 tablets by | 240 | 3 | 05/1 | | Activ | | mg oral tablet | mouth two times | tablet | | 5/20 | | e | | | daily. | | | 19 | | | + + + +---------+------+------+-------+ | QUEtiapine 100 mg | Take 100 mg by mouth | | 0 | | | Activ | | oral tablet | once daily. | | | | | e | + + + +---------+------+------+-------+ | gabapentin 300 mg | Wk 1: 300 mg qhs, Wk | 360 | 3 | 07/19 | | Activ | | oral | 2: 300 mg bid, Wk | capsule | | 09/06 | | e | | capsuleIndications: | 3: 300 mg tid | | | 19 | | | | Neuropathic Pain, | Indications: | | | | | | | Partial Epilepsy | Neuropathic Pain, | | | | | | | Treatment Adjunct, | Additional | | | | | | | Restless Legs | Medication to Treat | | | | | | | Syndrome | Partial Seizures, | | | | | | | | Extreme Discomfort | | | | | | | | in Calves when | | | | | | | | Sitting or Lying | | | | | | | | Down | | | | | | + + + +---------+------+------+-------+ Active Problems + + + | Problem | Noted Date | + + + | Myoclonus | 08/04/2018 | + + + | MOISÉS (obstructive [...] + | 11/26/ | MyChart | Neurology | Keon Gerber, | RE: Ambulatory EEG | | 2019 | Encounter | | [...] + + + | Blood Pressure | 117/82 | 08/04/2018 3:49 PM | | | | | PDT | | + + + + + | Pulse | 88 | 08/04/2018 3:49 PM | | | | | PDT | | + + + + + | Temperature | 37 C (98.6 F) | 12/09/2017 7:27 PM | | | | | PDT | | + + + + + | Respiratory Rate | 16 | 08/04/2018 3:49 PM | | | | | PDT | | + + + + + | Oxygen Saturation | 97% | 08/04/2018 3:49 PM | | | | | PDT | | + + + + + | Inhaled Oxygen | - | - | | | Concentration | | | | + + + + + | Weight | 84 kg (185 lb 3 oz) | 08/04/2018 3:49 PM | | | | | PDT | | + + + + + | Height | 160 cm (5' 3") | 08/17/2016 1:47 PM | | | | | PDT | | + + + + + | Body Mass Index | 32.8 | 08/17/2016 1:47 PM | | | | | PDT | | + + + + + Plan of Treatment + + + + + | Health Maintenance | Due Date | Last Done | Comments | + + + + + | Pneumococcal | | | | | vaccination (1 of 1 | 5 | | | | - PPSV23) | | | | + + + + + | Influenza (Flu) | | 02/21/2016, 01/06/2008 | | | vaccination (#1) | 9 | | | + + + + + Results Not on filefrom Last 3 Months Insurance + +--------+ +--------+-------+---------+--------+ | Payer | Benefi | Subscriber | Effect | Phone | Address | Type | | | t Plan | ID | nate | | | | | | / | | Dates | | | | | | Group | | | | | | + +--------+ +--------+-------+---------+--------+ | GAME TECHNICIAN MEDICAID | GAME TECHNICIAN | xxxxxxxx | 01/29/ | | | Medica | | | [place] | | 2016-P | | | id | | | [place] | | resent | | | | + +--------+ +--------+-------+---------+--------+ | GAME TECHNICIAN MEDICAID | GAME TECHNICIAN | xxxxxxxx | 02/18/19 | | | Medica | | | [place] | | 18-Pre | | | id | | | [place] | | sent | | | | + +--------+ +--------+-------+---------+--------+ + +--------+ +--------+ + + | Guarantor Name | Accoun | Relation to | Date | Phone | Billing Address | | | t Type | Patient | of | | | | | | | | | | + +--------+ +--------+ + + | Aniket Sweeney | Person | Self [birth year] | [address] | | | al/Fam | | 1981 | [phone] | [place] [address] | | | paramjit | | | 6 (Home) | | + +--------+ +--------+ + + Advance Directives + + + + + | Code Status | Date | Date | Comments | | | Activated | Inactivated | | + + + + + | Full Code | 03/01/2015 | 03/01/2015 | | | | 8:21 AM | 9:18 PM | | + + + + +
--- OUTSIDE RECORDS SUMMARY | ~2018-12-26 | XMS | Encounter Summary ---
Demographics + + + | Address | [address] | | | [place] [address] | + + + | Home Phone [...] Team Providers + +------+ + | Care Blood Or Blood Bank Technician Name | Role | Phone | [...] | | 2019 | Encounter | [place] [address] | [address] | Cervical Spine [facility]'s | | | | [address] | [place], [place] | | | | | [place], [place] | [address] | | | | | [address] | [phone] | | | | | [phone] | | | +--------+ + + + [...]
--- OUTSIDE RECORDS SUMMARY | ~2018-12-26 | XMS | Encounter Summary ---
Demographics + + + | Address | [address] | | | [place] [address] | + + + | Home Phone | | + + + | Preferred Language | Unknown | + + + | Marital Status | | + + + | Voodoo Affiliation | NON | + + + [...] Team Providers + +------+ + | Care Para Professional Name | Role | Phone | [...] Obesity (BMI | DAVEY Latham | [address] [facility] | | | | | 30-39.9) | [address] | [place] | | | | | Essential | [facility] | Mailcode: | | | | | hypertension | Rd | [address] | | | | | Procedures | [place], [place] | [place], [place] | | | | | SPLIT | [address] | [address] | | | | | NIGHT PSG | Phone: | Phone: | | | | | [place] | [phone] | [phone] | | | | | POLYSOMNOGRA | Fax: | Fax: | | | | | PHY W/CPAP | [phone] | [phone] | +--------+--------+ + + + + Encounter Details +--------+ + + + + | Date | Type | Department | Care Team | Description | +--------+ + + + + | 03/27/ | Hospital Manager | Sleep Disorder | [place], | Snoring (Primary | | 2017 | | [facility] [place] | Francesco Latham PA-C | Dx); Obesity (BMI | | | | [facility] | [address] | 30-39.9); Essential | | | | [address] | [address] [place], | hypertension | | | | [facility] Mailcode: | [place] [address] | | | | | [address] [place] | [phone] | | | | | [facility] | | | | | | [address] [place], [place] | | | | | | [address] | | | | | | [phone] | | | +--------+ + + + [...] on filedocumented as of this encounter Results SPLIT NIGHT [...] | | + +---------+ + + | [facility] | | | | | SLEEP STUDIES | | | | + +---------+ + + | [facility] | | [place], [place] | | | SLEEP STUDIES | | [...]
--- OUTSIDE RECORDS SUMMARY | ~2018-12-26 | XMS | Encounter Summary ---
Demographics + + + | Address | [address] | | | [place] [address] | + + + | Home Phone | | + + + | Preferred Language | Unknown | + + + | Marital Status | | + + + | Holiness Affiliation | NON | + + + [...] Team Providers + +------+ + | Care Second Cook And Baker Name | Role | Phone | + [...] | | | | pharyngeus | PA-C [address] | [facility] [address] | | | | | Procedures | [address] | [address] | | | | | CONSULT TO | [place], | [place], [place] | | | | | ENT / | [place] | [address] | | | | | OTOLARYNGOLO | [address] | Phone: | | | | | [place] | Phone: | [phone] | | | | | | [phone] | Fax: | | | | | | Fax: | [phone] | | | | | | [phone] | | +--------+--------+ + + + + [...] | | | | | | | [place], [place] | | | | | | | [address] | | | | | | | Phone: | | | | | | | [phone] | | | | | | | Fax: | | | | | | | [phone] | +--------+--------+ + + + + Encounter Details +--------+---------+ + + + | Date | Type | Department | Care Team | Description | +--------+---------+ + + + | 10/18/ | Office | [facility] | Carmelita Craig, | Globus pharyngeus | | 2015 | Visit | Center at [facility] [address] | PA-C [address] | (Primary Dx); | | | | [address] | Ave [place], [place] | Dysphagia, | | | | Mailcode: CH5E | [address] | unspecified type; | | | | [facility] | [phone] | Chronic ethmoidal | | | | and Healing, | | sinusitis; Chronic | | | | [address] | | maxillary sinusitis | | | | Floor [place], [place] | | | | | | [address] | | | | | | [phone] | | | +--------+---------+ + + + [...] Craig PA-C - 10/19/2015 1:40 PM PDT [facility] HPI: Aniket Kendall is a 35 y.o. female who presents to the [facility] for fol low up of [...] sinus irrigati ons. Irrigate BID. Sent to [facility] cyclobenzaprine 10 mg oral tablet Take [...] | + +--------+ + + + | [place] NASAL | Routin | 10/26/2015 | Dysphagia, [...]
--- OUTSIDE RECORDS SUMMARY | ~2018-12-26 | XMS | Encounter Summary ---
Demographics + + + | Address | [address] | | | [place] [address] | + + + | Home Phone | | + + + | Preferred Language | Unknown | + + + | Marital Status | | + + + | Christian Affiliation | NON | + + + [...] Team Providers + +------+ + | Care Talent Acquisition Administrator Name | Role | Phone | + +------+ + | Melvina TalleyP | PCP | | + +------+ + Encounter Details +--------+ + + + + | Date | Type | Department | Care Team | Description | +--------+ + + + + | 03/21/ | Documentati | Otolaryngology | Haroon Isaac | | | 2017 | on | Laryngology Services | MD Maria T [address] [facility] | | | | | at [facility] [address] | | | | | [place], | [place], [place] | | | | | [place] [address] | [address] | | | | | [phone] | [phone] | | | | | | | [...]
--- OUTSIDE RECORDS SUMMARY | ~2018-12-26 | XMS | Encounter Summary ---
Demographics + + + | Address | [address] 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 | | | +--------+--------+ + + + + Encounter Details +--------+ + + + + | Date | Type | Department | Care Team | Description | +--------+ + + + + | 08/16/ | Diagnostic | Otolaryngology [facility] | Marj Martinez, | | | 2017 | Visit | [facility] | [facility]-TRAFFIC DIRECTOR [address] | | | | | Swallowing at [facility] | [address] | | | | | [address] | [facility] [place] | | | | | Mailcode: CH15E | [id number] | | | | | [facility] | | | | | | and Healing, | | | | | | Building | | | | | | Floor [place], [place] | | | | | | [address] | | | | | | [phone] | | | +--------+ + + + [...] of this encounter Progress Notes Marj Martinez, [facility]-TRAFFIC DIRECTOR - 08/16/2016 1:00 PM PDT VOICE THERAPY PROGRESS NOTE CLINIC: [facility] CLINIC DATE: 08/16/16 REFERRING PHYSICIAN: TAMEKA Osborn PRIMARY DIAGNOSIS: 1. Dysphonia 2. Laryngeal hyperfunction 3. Globus sensation TREATMENT DIAGNOSIS: 1. Dysphonia 2. Laryngeal hyperfunction 3. Globus sensation DATE OF ONSET: 02/16/16 START OF CARE: 03/26/16 NUMBER OF SESSIONS: 2 DURATION OF SESSION: 60 min. 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 Since her evaluation on 03/26/16, EGD and CT scan were manas th completed, with unremarkable results. A sleep study was also completed, and CPAP was gale mmended, but Aniket reports that she has been having difficulty with her insurance and the s upplier, and has not yet received her CPAP machine. She reports that she has been working on smoking cessation as she is preparing for an upcoming surgery, and is now down to 6 cigaret savannah per day. She does note that she has been under a significant amount of stress, as she is getting in 2 weeks. She reports that her voice symptoms have not improved, and she continues to find that her voice is "down to nothing" by the end of the day. She also report s that she is frequently short of breath while talking. OBJECTIVE: Today the patient's voice is characterized by a rough, underprojected, and back- focused vocal quality. Patient education was provided regarding the nature of laryngeal hype rfunction and goals for therapy. Basic anatomy and physiology of normal voicing was reviewed with the patient in the context of her current vocal technique. We discussed the role of vo ice therapy in unloading baseline muscle tension to reduce laryngeal hyperfunction which, in turn should produce clearer voice and reduce discomfort. Reviewed 3 coordinative structures and optimal breathing. Patient was stimulable for low abdominal breathing with model and cu es. She benefited from reclining in her chair and placing a hand on her abdominal musculatur e as a tactile cue. Exercises for coordinating breath with unvoiced sounds were practiced us ing /sh/ and lip trill. Modified vocal function exercises were introduced and completed with verbal instruction, clinician model, and return demonstration. The vocal warm-up, stretchin g and petra exercises were completed with a lip trill. M-initial syllables and nasally loaded phrases were used to facilitate relaxed, front focused voicing. We then practiced re ading at the sentence level, and in structured conversation. The patient benefited from mod cues to carry the breath to the end of the phrase in order achieve greater forward resonance and reduce tight, throat-focused voice quality. Negative practice facilitated awareness. Bo solis education provided on process of learning, developing awareness, and creating new musc le memory. The patient did appear to understand the information presented today. ASSESSMENT: Good first session. Aniket is stimulable for improved vocal quality with tasks to facilitate abdominal breathing and relaxed, front focused vocal technique. She demonstrat ed improved awareness of her breathing both at rest and while speaking by the end of today's session. She was able to achieve improved coordination of voice and breath with mod cueing. PLAN: The patient is in town for 2 days from [place], [place]. She will return for one additio nal session of voice therapy tomorrow afternoon. Homework was provided. Marj Martinez MS, CCC-TRAFFIC DIRECTOR Speech-Language Pathologist [facility] Department of Otolaryngology/ Head and Neck Surgery Appointments: [phone] documented in thi s encounter Plan of Treatment Not on filedocumented as of this encounter Procedures + +--------+ + + + | Procedure Name | Priori | Date/Time | Associated Diagnosis | Comments | | | ty | | | | + +--------+ + + + | VT SPEECH/HEARING | Routin | 08/16/2016 | Dysphonia | | | THERAPY | e | 4:17 PM | Laryngeal | | | | [...]
--- OUTSIDE RECORDS SUMMARY | ~2018-12-26 | XMS | Clinical Summary ---
Demographics + + + | Address | [address] | | | [place] [address] | + + + | Home Phone | | + + + | Preferred Language | Unknown | + + + | Marital Status | | + + + | Orthodox Affiliation | Unknown | + + + | Race | Unknown | + + + | Ethnic Group | Unknown | + + + Author + + + | Author | [employer] [facility] (Historical as of | | | 10-04-18) | + + + | Organization | [facility] (Historical as of | | | 10-04-18) [...] Team Providers + +------+ + | Care Traffic I Manager Name | Role | Phone | + +------+ + | Melvina Talley INFORMATION SYSTEMS SECURITY SPECIALIST | PP | | + +------+ + [...] +------+-------+ + | MEDICAID | [place] | [id number] | | | [address] | | | [place] | | | | [place] | | | [place] | | | | [address] | | | PAN DEVULCANIZER | | | | | + +--------+ [...] | | | paramjit | | | [phone] | [address] | + +--------+ +--------+ + +
--- OUTSIDE RECORDS SUMMARY | ~2018-12-26 | XMS | Encounter Summary ---
Demographics + + + | Address | [address] | | | [place] [address] | + + + | Home Phone [...] + + + | Author | [facility] | + + + | Organization | [facility] | + + + | [...] Team Providers + +------+ + | Care Run Boat Operator Name | Role | Phone | [...] + + | 03/01/ | Hospital | [facility] | Haroon Biggs, | | | 2015 | Encounter | STAY [address] | [place] | | | | | Vijaya Mailcode: [facility] | | | | | | [facility] | | | | | | Health and [facility], | | | | | | [address] | | | | | | [place], [place] | | | | | | [address] | | | | | | [phone] | | | +--------+ + + + [...] may receive a patient satisfaction survey from "[employer]". We sowmya pham appreciate your feedback on [...] | | | PATHOLOGY | Bilateral sinus contents | | DEPARTMENT | | | | Final Pathologic | | OF | | | | Diagnosis:Sinus | | PATHOLOGY | | | | contents, bilateral, | | | | | | curettage: - Mild | | | | | | chronic sinusitis with | | | | | | no evidence of increased | | | | | | eosinophils Case | | | | | | seen by:Ian | | | | | | Leyda | | | | | | M.DHazel/Pathology | | | | | | Kaushal Garduno | | | | | | M.DHazel/Pathologist | | | | | | Clinical [...] | | | | | | in aggregateSubmitted: | | | | | | Entirely | | | | | | Cassette Index:A1, | | | | | | decalcification | | | | | | performedNN:tp My | | | | | | electronic signature | | | | | [...] | | | | | | Rendering Diagnostician: | | | | | | Rachel Garduno | | | | | | ElizabethPathologistElectroni | | | | | | brian [...] | + + + + + | [facility] | [address] | [place] [address] | | | PATHOLOGY | [address] [...] | | | | | NEEDED, Starting Sat03/01/15 at | | | | | | | 1202, Until Sat03/01/15 at 2118, | | | | | [...] AM PST | | | | | doseAshlee 03/01/15 at 1100 | | | | | | + + + +---------+---+---+ +---+---+ | | | +---+---+ documented in this encounter
--- OUTSIDE RECORDS SUMMARY | ~2018-12-26 | XMS | Encounter Summary ---
Demographics + + + | Address | [address] | | | [place] [address] | + + + | Home Phone | | + + + | Preferred Language | Unknown | + + + | Marital Status | | + + + | Hindu Affiliation | NON | + + + [...] + +------+ + | Care Director Of Global Sales Name | Role | Phone | + [...] | +--------+ + + + + | 04/19/ | Hospital | [facility] GI PROCEDURE | Guzman Mccormick, | | | 2017 | Encounter | [address] | | | | | | [place]ij[place] Mailcode: [facility] | | | | | | [facility] | | | | | | [facility], | | | | | | [address] | | | | | | [place], [place] | | | | | | [address] | | | | | | [phone] | | | +--------+ + + + [...] + + + | Blood Pressure | 95/69 | 04/19/2016 11:45 AM | | | | | PST | | + + + + + | Pulse | 70 | 04/19/2016 11:28 AM | | | | | PST | | + + + + + | Temperature | 36.7 C (98 F) | 04/19/2016 10:31 AM | | | | | PST | | + + + + + | Respiratory Rate | 14 | 04/19/2016 11:50 AM | | | | | PST | | + + + + + | Oxygen Saturation | 96% | 04/19/2016 11:45 AM | | | | | PST | | + + + + + | Inhaled Oxygen | - | - | | | Concentration | | | | + + + + + | Weight | 88.5 kg (195 lb) | 04/19/2016 10:31 AM | | | | | PST | | + + + + + | Height | - | - | | + + + + + | Body Mass Index | 34.54 | 03/26/2016 12:49 PM | | | | | PST | | + + + + + documented in this encounter Discharge Instructions Instructions Kartik Blackburn RN - 04/19/2016[facility] Instructions after EGD (Upper Endoscopy ) You may resume your normal diet and medications unless told otherwise. Medications The medications you received for your procedure can cause you to be forgetful and drowsy an d will take the remainder of the day to wear off. DO NOT drink alcohol, drive, operate heavy machinery, sign legal documents, or make major d ecisions until tomorrow. Common After Effects Mild abdominal pain, bloating, and gas. Sore throat. You may treat it with throat lozenges and/or gargle with warm salt water. You may bruise at your IV site. If you have pain, redness, or swelling at your IV site a pply a warm compress. Complications Call your GI doctor if you have: Abnormal pain or any new unexplained symptoms. Shortness of breath, chest or neck pain. Vomiting blood or rectal bleeding. Fever above 101.5 Redness, pain, or swelling at your IV site that is not relieved with warm compress. For any questions related to your procedure, call Saturday- Saturday 8:00- 4:30 Call the endoscopy department toll free ext. [phone] or After business hours or on weekends and holiday [facility] toll free [phone] ext. [phone] and have the GI doctor second operator paged. The provider who performed your procedure is: Guzman Mccormick MD Results of your EGD: Biopsies were taken, then sent to pathology for analysis Follow up Appointments with: Referring Provider or Primary Care Provider (PCP) Your primary care provider or referring provider will receive copies of the procedure repor t and all the pathology reports with recommendations for treatment if needed. If Noted above that biopsies were taken or polyps removed we will receive the results in ap proximately 1 week. If you have not heard from us after 2 weeks please call for your results . documented in this encounter Medications at Time [...] +---------+--------+ + documented as of this encounter Progress Notes Guzman Mccormick MD - 04/19/2016 11:08 AM PSTFormatting of this note might be different fro m the original. PRE PROCEDURE NOTE: MR# [id number] Subjective: Aniket Kendall is a 35 y.o. female who presents today for EGD. Patient History Reviewed Medications reviewed Allergies as of 04/06/2016 - Fully Reviewed 03/26/2016 Allergen Reaction Noted Penicillin Rash 02/03/2015 Pt NPO since 729 ASA Class: II ROS: All others negative. Objective: Vital Signs: BP 106/74 | Pulse 64 | Temp 36.7 C (98 F) | RR 16 | Wt 88.5 kg (195 lb) | SpO2 98% | BMI 34.54 kg/(m^2) Neuro: Alert and Oriented x 3 Mallampati Score: II Neck: supple, no lymphadenopathy Respiratory: Lungs clear to auscultation bilaterally with good air exchange Cardiovascular: Regular rate Abdomen: soft, normal active bowel sounds, nontender, no masses, no organomegaly Impression Patient deemed appropriate candidate for planned procedure and sedation. Plan Proceed with EGD PARQ held and all questions addressed. Consent obtained. See procedure note 04/19/2016 documented in this en counter Plan of Treatment Not on filedocumented as of this encounter Procedures + +--------+ + + + | Procedure Name | Priori | Date/Time | Associated Diagnosis | Comments | | | ty | | | | + +--------+ + + + | EGD | Routin | 04/19/2016 | Gastroesophageal | Results for this | | | e | 10:56 AM | reflux disease, | procedure are in the | | | | PST | esophagitis presence | results section. | | | | | not specified | | + +--------+ + + + | SURGICAL PATHOLOGY | Routin | 04/19/2016 | | Results for this | | | e | | | procedure are in the | | | | | | results section. | + +--------+ + + + documented in this encounter Results EGD (04/19/2016 10:56 AM PST) + + | Specimen | + + | | + + + + + | Narrative | Performed At | + + + | MRN: | [facility] | | [id number] Date: 04/19/2016Patient Name: Order #: [id number] | ENDOSCOPY | | of : 1980CSN: [id number]: [facility] 3Procedure: | | | Upper GI endoscopyIndications: Heartburn, Globus | | | sensationProviders: GUZMAN MCCORMICK MD (Doctor), KARTIK | | | SHERRI BLACKBURN (Nurse), CLAUDIA CARTER, | | | Turkish [employer]ber (Turkish [employer]ber)Referring MD: RITU Serrano | | | ANGEL MYERS-CRequestlesvia Provider: Medicines: Fentanyl | | | 100 micrograms IV, Midazolam 3 mg IVComplications: No | | | immediate complications. Estimated blood loss: | | | Minimal.Procedure: Pre-Anesthesia Assessment: | | | - ASA Grade Assessment: II - A patient | | | with mild systemic disease. | | | Prior to the procedure, a History and Physical with | | | airway assessment was performed (see | | | patient record), and patient | | | medications and allergies were reviewed. The | | | risks and benefits of the procedure and the sedation | | | options and risks were discussed. All questions | | | were answered and informed consent was | | | obtained. After reviewing the risks and | | | benefits, the patient was deemed in | | | satisfactory condition to undergo the procedure. | | | Immediately prior to administration of medications, the | | | patient was re-assessed for adequacy to | | | receive sedatives. The heart rate, | | | respiratory rate, oxygen saturations, | | | blood pressure, adequacy of pulmonary | | | ventilation, and response to care were monitored | | | throughout the procedure. The physical status of the | | | patient was re-assessed after the procedure. | | | The Olympus [id number]-[id number] Endoscope #[id number] | | | was introduced through the mouth, and | | | advanced to the second part of | | | duodenum. The upper GI endoscopy was accomplished with | | | ease. The patient tolerated the procedure | | | well.Findings: The esophagus and gastroesophageal junction were | | | examined with white light from a forward view and retroflexed | | | position. There were esophageal mucosal changes suspicious for | | | short-segment Figueroa's esophagus. These changes involved the | | | mucosa along an irregular Z-line (34 cm from the incisors). Two | | | tongues of salmon-colored mucosa were present from 34 to 35 | | | cm. The maximum longitudinal extent of these esophageal mucosal | | | changes was 1 cm in length. This was biopsied with a cold | | | forceps for evaluation to rule out Figueroa's Esophagus. The | | | entire examined stomach was normal. The examined duodenum was | | | normal.Moderate Sedation: Moderate (conscious) sedation was | | | administered by the endoscopy nurse and supervised by the | | | endoscopist. The following parameters were monitored: oxygen | | | saturation, heart rate, blood pressure, and response to care. | | | Moderate (conscious) sedation was administered by the endoscopy | | | nurse and supervised by the endoscopist. The following | | | parameters were monitored: oxygen saturation, heart rate, blood | | | pressure, and response to care.Impression: - | | | Esophageal mucosal changes suspicious for | | | short-segment Figueroa's esophagus. Biopsied. | | | - Normal stomach. - Normal | | | examined duodenum.Recommendation: - Await pathology results. | | | - Recommend acid suppression | | | medication.GUZMAN MCCORMICK MD04/19/2016 11:32:42 AMNumber of Addenda: | | | 0Note Initiated On: 04/19/2016 10:56 AM | | | - Normal examined duodenum. | | |Recommendation: - Await pathology results. | | | - Recommend acid suppression medication. | | |GUZMAN MCCORMICK MD | | |04/19/2016 11:32:42 AM | | |Number of Addenda: 0 | | |Note Initiated On: 04/19/2016 10:56 AM | | + + + + +---------+ + + | Performing | Address | City/State/Zipcode | Phone Number | | Organization | | | | + +---------+ + + | [facility] | | | | + +---------+ + + SURGICAL PATHOLOGY (04/19/2016) + + + + + + | Component | Value | Ref Range | Performed | Pathologist | | | | | At | Signature | + + + + + + | SURGICAL | SOURCE OF SPECIMEN:A GEJ | | [facility] | | | PATHOLOGY | biopsies Final | | DEPARTMENT | | | | Pathologic | | OF | | | | Diagnosis:Gastroesophage | | PATHOLOGY | | | | al junction, biopsy: | | | | | | - Squamocolumnar | | | | | | junctional mucosa with | | | | | | no diagnostic | | | | | | abnormality - | | | | | | Negative for intestinal | | | | | | metaplasia and dysplasia | | | | | | Case seen | | | | | | by:Carmen Gonzalez, | | | | | | MD/Surgical Pathology | | | | | | Eriberto Naidu, | | | | | | DO/Pathologist | | | | | | Clinical History:Patient | | | | | | is a 35-year-old female | | | | | | with an irregular Z | | | | | | line and 2 tongues | | | | | | ofcolumnar lined mucosa | | | | | | on upper endoscopy. | | | | | | Biopsy to rule out | | | | | | Figueroa'sesophagus. | | | | | | Gross | | | | | | Description:Received is | | | | | | a single specimen in | | | | | | formalin labeled with | | | | | | the patient's nameand | | | | | | . A: | | | | | | GEJ biopsies: Received | | | | | | are 3 simms-pink soft | | | | | | tissue fragments | | | | | | measuring0.5 x 0.3 x 0.2 | | | | | | cm in aggregate. The | | | | | | entire sample submitted. | | | | | | Cassette | | | | | | Index:A1(DT) My | | | | | | [...] Diagnostician: | | | | | | Bita Naidu | | | | | | DOPathologistElectronica | | | | | | lly Signed 04/23/2016 | | | | | | 4:05PM | | | | + + + + + + + + | Specimen | + + | Tissue - Biopsy | | (procedure) | + + + + + | Narrative | Performed At | + + + | | | + + + + + + + + | Performing | Address | City/State/Zipcode | Phone Number | | Organization | | | | + + + + + | [facility] | [address] | [place] [address] | | | PATHOLOGY | [address] | | | + + + + + documented in this encounter Visit Diagnoses + + | Diagnosis | + + | Gastroesophageal reflux disease, esophagitis presence not specified | + + documented in this encounter Administered Medications + +--------+ +--------+------+------+ | Medication Order | MAR | Action | Dose | Rate | Site | | | Action | Date | | | | + +--------+ +--------+------+------+ | fentaNYL (SUBLIMAZE) injection | Given | 04/20/19 | 50 mcg | | | | intravenous, INTRAPROCEDURE PRN, | | 17 11:15 | | | | | Starting Deandra 04/19/16 at 1115, | | AM PST | | | | | Until Deandra 04/19/16 at 1115 | | | | | | + +--------+ +--------+------+------+ +---+---+ | | | +---+---+ + +-------+ +--------+---+---+ | fentaNYL (SUBLIMAZE) injection | Given | 04/20/19 | 50 mcg | | | | intravenous, INTRAPROCEDURE PRN, | | 17 11:18 | | | | | Starting Deandra 04/19/16 at 1118, | | AM PST | | | | | Until Deandra 04/19/16 at 1118 | | | | | | + +-------+ +--------+---+---+ + +---+ | | | + +---+ | lidocaine viscous (XYLOCAINE | | | VISCOUS) 2 % mucosal solution 15 | | | mL 15 mL, oral, INTRAPROCEDURE | | | PRN, Starting Deandra 04/19/16 at 1028, | | | Until Deandra 04/19/16 at 1800, sore | | | oropharynx | | + +---+ | | | + +---+ + +-------+ +------+---+---+ | lidocaine viscous (XYLOCAINE | Given | 04/20/19 | 6 mL | | | | VISCOUS) 2 % mucosal solution | | 17 11:15 | | | | | Mouth/Throat, INTRAPROCEDURE PRN, | | AM PST | | | | | Starting Deandra 04/19/16 at 1115, | | | | | | | Until Deandra 04/19/16 at 1115 | | | | | | + +-------+ +------+---+---+ +---+---+ | | | +---+---+ + +-------+ +------+---+---+ | midazolam (PF) (VERSED) | Given | 04/20/19 | 1 mg | | | | injection INTRAPROCEDURE PRN, | | 17 11:15 | | | | | Starting Deandra /04/06 at 1115, | | AM PST | | | | | Until Deandra 04/19/16 at 1115 | | | | | | + +-------+ +------+---+---+ +---+---+ | | | +---+---+ + +-------+ +------+---+---+ | midazolam (PF) (VERSED) | Given | 04/20/19 | 1 mg | | | | injection INTRAPROCEDURE PRN, | | 17 11:17 | | | | | Starting Deandra 3/04/06 at 1117, | | AM PST | | | | | Until Deandra 3/04/06 at 1117 | | | | | | + +-------+ +------+---+---+ +---+---+ | | | +---+---+ + +-------+ +------+---+---+ | midazolam (PF) (VERSED) | Given | 04/20/19 | 1 mg | | | | injection INTRAPROCEDURE PRN, | | 17 11:19 | | | | | Starting Deandra 04/19/16 at 1119, | | AM PST | | | | | Until Deandra 04/19/16 at 1119 | | | | | | + +-------+ +------+---+---+ +---+---+ | | | +---+---+ + +---------+ + + +---+ | NaCl 0.9 % solution 50 mL/hr, | New Bag | 04/20/19 | 50 mL/hr | 50 mL/hr | | | intravenous, CONTINUOUS, Starting | | 17 11:30 | | | | | Deandra 04/19/16 at 1030, Until Deandra | | AM PST | | | | | 04/19/16 at 1800 | | | | | | + +---------+ + + +---+ +---------+ + + +---+ | New Bag | 04/20/19 | 50 mL/hr | 50 mL/hr | | | | 17 10:33 | | | | | | AM PST | | | | +---------+ + + +---+ +---+---+ | | | +---+---+ + +-------+ +------+---+---+ | ondansetron (ZOFRAN) injection | Given | 04/20/19 | 4 mg | | | | intravenous, INTRAPROCEDURE PRN, | | 17 11:08 | | | | | Starting Deandra 04/19/16 at 1108, | | AM PST | | | | | Until Deandra 04/19/16 at 1108 | | | | | | + +-------+ +------+---+---+ + +---+ | | | + +---+ | simethicone (MYLICON) | | | suspension 3.333 mg 3.333 mg | | | (rounded from 3.3333 mg = 1 | | | drop), oral, HSD PRN, Starting | | | Deandra 04/19/16 at 1028, Until Deandra | | | 04/19/16 at 1800, bloating, gas | | | bubbles | | + +---+ | | | + +---+ documented in this encounter"
--- OUTSIDE RECORDS SUMMARY | ~2018-12-26 | XMS | Clinical Summary ---
Demographics + + + | Address | [address] [place] [address] St. | | | [place] [address] | + + + | Home Phone | | + + + | Preferred Language | Unknown | + + + | Marital Status | | + + + | Orthodoxy Affiliation | NON | + + + | Race | White | + + + | Ethnic Group | Not or | + + + Author + + + | Author | [facility] | + + + | Organization | [facility] | + + + | Address [...] Team Providers + +------+ + | Care Branch Retail Executive Name | Role | Phone | + +------+ + | Melvina TalleyP | PCP | | + +------+ + Source Comments ANSHU is fully live on both EpicCare Ambulatory and EpicCare InPatient.[facility] Allergies + + + + + + [...] | | | + +--------+ +--------+-------+---------+--------+ | ACCOUNT AUDITOR MEDICAID | ACCOUNT AUDITOR | xxxxxxxx | 01/29/ | | | Medica | | | [place] | | 2016-P | | | id | | | [place] | | resent | | | | + +--------+ +--------+-------+---------+--------+ | ACCOUNT AUDITOR MEDICAID | ACCOUNT AUDITOR | xxxxxxxx | 02/18/19 | | | [...] | Self | [birth year] | [address] | | | al/Fam | | 1981 | [phone] | [place] [address] | | | paramjit | | | [...]
--- OUTSIDE RECORDS SUMMARY | ~2018-12-26 | XMS | Encounter Summary ---
Demographics + + + | Address | [address] | | | [place] [address] | + + + | Home Phone [...] Team Providers + +------+ + | Care Sports Broadcaster Name | Role | Phone | + [...] | | | | | type | [address] | | | | | Procedures | Ave | Mailcode: | | | | | CONSULT TO | [place], [place] | [address] | | | | | ENT SPEECH | [address] | Physician's | | | | | THERAPY | Phone: | Pavilion | | | | | | [phone] | [place], [place] | | | | | | Fax: | [address] | | | | | | [phone] | Phone: | | | | | | | [phone] | | | | | | | Fax: | | | | | | | [phone] | +--------+--------+ + + + + Encounter Details +--------+---------+ + + + | Date | Type | Department | Care Team | Description | +--------+---------+ + + + | 03/26/ | Office | Otolaryngology [facility] | Latha Vasquez | Dysphagia, | | 2017 | Visit | [facility] | | unspecified type | | | | Swallowing at [facility] | | (Primary Dx); | | | | [address] | | Laryngeal | | | | Mailcode: CH15E | | hyperfunction; | | | | [place] [facility] | | Dysphonia; Globus | | | | and Healing, | | sensation | | | | Building | | | | | | Floor [place], [place] | | | | | | [address] | | | | | | [phone] | | | +--------+---------+ + + + [...] documented as of this encounter Progress Notes Latha Vasquez - 03/26/2016 1:00 PM PST Clinic: [facility] Referring Physician: TAMEKA Yin [facility] [address] [facility] [address] [place] [address] PCP: TAMEKA Mistry Medical Diagnosis: 1. Dysphagia, unspecified type 2. Laryngeal hyperfunction 3. Dysphonia 4. Globus sensation Date of Onset for This Diagnosis: 02/16/16 Treatment Diagnosis: 1. Dysphagia, unspecified type 2. Laryngeal hyperfunction 3. Dysphonia 4. Globus sensation Start of Care Date: 03/26/16 Duration of session: 60 minutes Session Number: 1 The patient stated her name and date of to confirm identity prior to the examination and procedure. REASON FOR REFERRAL: Aniket Kendall was referred to the [facility] for Voice and Swallowing by Dr. Carmelita Craig PA-C, for a complete evaluation. Patient presents today w ith persistent globus sensation in the thyrohyoid space, difficulty swallowing solids, liqui ds, and pills, breathing difficulties, as well as voice complaints. Patient has a history of multiple sinus surgeries, one with difficult intubation, and reports her globus, odynophagi a, and hoarse voice began following surgery. She also reports GERD and history of gastric ul cer per upper endoscopy 5 years ago. She indicates her GERD is well controlled with omeprazo le. She underwent a MBS and esophagram today which revealed a normal oropharyngeal swallow, mild esophageal dysmotility, and gastroesophageal reflux upon provocation. Her history is al so significant for seizures (about one per week). This evaluation was completed in cooperation with Cathleen Castro PA-C. Please refer to mt s report for details regarding the medical diagnosis. GLOBUS SENSATION: Patient reports a 2 year history of a feeling of something in her throat (points to thyrohyoid space). She indicates this is painful and occasionally the pain travel s to the ear (she thinks it is worse on the right). The sensation is exacerbated when she is swallowing. SWALLOWING: Patient reports a 2 year history of difficulty swallowing. She notes solids and pills stick in back of throat, especially solids that are piecy, like rice and raw vegetabl es. She tends to avoid these. She can eat bread and meat but usually follows solids with a l iquid wash and is sure to chew very well. She often feels residue in her sinuses and has to do a nasal rinse to flush it out. She denies nasal regurgitation, however. She denies pneumo davon. She has intentionally lost weight by working out and eating better. She endorses pain w ith swallowing liquids but not solids, as well as persistent xerostomia. BREATHING: Patient reports difficulty breathing when laying down since her sinus surgery. H er reports she snores when sleeping and that she will stop breathing periodically in the night and then begin breathing again with a gasp for air. This happens about 4-5 times per night. She indicates she does not sleep well and needs to take medication to fall asleep . VOICE: Patient reports a 2 year history of voice problems. She indicates her voice is weak and that it is effortful to speak. She believes her voice is best about mid-day and notes th at the voice fatigues easily with use and when she is tired. She notes that others sometimes have to ask her to repeat herself. She says she is able to raise her voice and get louder, but when she does this, it causes her to cough. She denies pain when speaking. Patient also reports frequent throat clearing. She indicates today is a good day for her voice. VOCAL HYGIENE: The patient drinks 64 oz. of water, 20 oz. of coffee per day and never/rare ly drinks alcohol. The patient smokes 1 pack of cigarettes per day and has done so for 21 ye ars. She quit at one point for 3 months, but started up again. 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 H er vocal demands include conversational speech and telephone use. She admits she is talkativ e. The patient does complain of reflux symptoms which she reports are well controlled with o meprazole. Her symptoms are severe when she does not take omeprazole. She attempts to allevi ate her symptoms through propping up on extra pillows. She also tries to eat less acidic luis fernando ds and eat earlier, but she admits this is difficult for her. SINGING: N/A PERCEPTUAL ASSESSMENT: The patient's voice was moderately dysphonic and characterized by a rough, underprojected, and back-focused vocal quality with moderate glottal flores. There wer e no audible spasms during phonation. There was not a tremor noted. The patient's pitch was within normal limits for her age and gender. Loudness was abnormal, almost too soft for 1: 1 conversation. Articulation was within normal limits. Speech rate was within normal limits . Resonance was characterized as back-focused. Breathing pattern was normal. Breath suppo rt for speech was fair. Coordination of breath and voice was fair. The patient's speech in telligibility was approximately 100%. CAPE-V results revealed overall moderate dysphonia ( 30/100), moderate roughness (30/100), no breathiness (0/100), mild strain (10/100), no abnor mal pitch (0/100), mild-moderate abnormal loudness (29/100). Voice Handicap Index = 41 (VHI measures the impact of the patient's voice disorder on daily communication with 120 being the maximum score indicating severe handicap). Maximum phonation time = 7 seconds. Fundamental frequency (Fo): 186 Hz in sustained vowel ; 172 Hz in reading; 184 Hz in conversation. LARYNGEAL EXAMINATION: Laryngovideostroboscopy was completed using the flexible distal chi p telescope. The patient was sprayed with Lidocaine and Phenylephrine to each nostril prior to the examination after verbal consent. The patient tolerated the procedure well. Patient was noted to have a prominent, full valleculae, with a small, rough prominence at the left base of tongue. There was a "cobblestone" appearance to the posterior pharyngeal wall. There were mild thick secretions ejected with a cough. The vocal folds were well visualized. The vocal folds were white with straight and smooth edges. There were no lesions noted bilatera lly. Range of motion for vocal fold abduction was within normal limits bilaterally during i nspiration. Range of motion for vocal fold adduction was within normal limits bilaterally d uring phonation. There was increased supraglottic activity during phonation and connected sp eech (greater supraglottic involvement during connected speech). Supraglottic activity was characterized by moderate anterior-posterior squeezing and mild lateral squeezing of the fal se vocal folds. Vocal fold elongation during glissando was normal. During stroboscopy, verti henny level of the vocal folds was equal. Glottic closure was complete. The mucosal wave was n ormal bilaterally. Amplitude of vibration was normal bilaterally. Vibration was always per iodic. Phase symmetry was sometimes irregular and characterized by a chasing wave. Vibrator y behavior was always present. Trial therapy was not completed today. The patient is motivated to improve and is a good ca ndidate for improvement with voice therapy. Patient education was completed with written and verbal information. The patient did appea r to understand the information presented today. SUMMARY: The patient presented with 2 year history of persistent globus sensation, difficu lty swallowing solids and pills with odynophagia for liquids. MBS and esophagram today revea led normal oropharyngeal swallow, mild esophageal dysmotility, and gastroesophageal reflux u jazmine provocation. Contributing factors include GERD and 20 pack year history. She also presen ts with moderate dysphonia secondary to laryngeal hyperfunction and chronic cigarette use. RECOMMENDATIONS: 1. Cathleen Castro PA-C, recommended the following: -Consult for an EGD for direct visualization of filling defect in postcricoid area -Referral for a sleep study for apneic episodes -Smoking cessation 2. Patient was provided with reflux behavioral recommendations in written form 3. Patient was offered voice therapy in attempt to alleviate some laryngeal hyperfunction w hich may be contributing to her globus sensation. Patient set up an appointment for the same day she is following up with Cathleen. She will follow through with it if it is covered by [employer] kianna. Latha Vasquez MA, CF-DETENTION OFFICER Speech-Language Pathology Fellow [facility] Dept. of Otolaryngology, [address] [place] [address] Pager: [phone] signed by Latha Vasquez at 04/01/2016 5:12 PM PSTdocumented in this encounter Plan of Treatment Not on filedocumented as of this encounter Procedures + +--------+ + + + | Procedure Name | Priori | Date/Time | Associated Diagnosis | Comments | | | ty | | | | + +--------+ + + + | [place] | Routin | 04/01/2016 | Dysphagia, | | | LARYNGOSCOPY,FLEX/RI | e | 5:12 PM | unspecified type | | | GID+STROBOSCOPY | | PST | Laryngeal | | | | | | hyperfunction | | | | | | Dysphonia Globus | | | | | | sensation | | + +--------+ + + + | [place] [facility] | Routin | 04/01/2016 | Dysphagia, | | | QUALITATIVE ANALYSIS | e | 5:12 PM | unspecified type | | | OF VOICE AND | | PST | Laryngeal | | | RESONANCE | | | hyperfunction | | | | | | Dysphonia Globus | | | | | | sensation | | + +--------+ + + + documented in this encounter Visit Diagnoses + + | Diagnosis | + + | Dysphagia, unspecified type - Primary | + + | Laryngeal hyperfunction Other diseases of larynx | + + | Dysphonia | + + | Globus sensation Gastrointestinal malfunction arising from mental factors | + + documented in this encounter
--- OUTSIDE RECORDS SUMMARY | ~2018-12-26 | XMS | Encounter Summary ---
Demographics + + + | Address | [address] | | | [place] [address] | + + + | Home Phone | | + + + | Preferred Language | Unknown | + + + | Marital Status | | + + + | Tenriism Affiliation | NON | + + + [...] Team Providers + +------+ + | Care Desk Director Name | Role | Phone | + [...] PA-C | | | | | at [facility] [address] | | | | | [address], | [place], [place] | | | | | [place] [address] | [address] | | | | | [phone] | [phone] | | | | | | | [...]
--- OUTSIDE RECORDS SUMMARY | ~2018-12-26 | XMS | Encounter Summary ---
Demographics + + + | Address | [address] | | | [place] [address] | + + + | Home Phone | | + + + | Preferred Language | Unknown | + + + | Marital Status | | + + + | Protestant Affiliation | NON | + + + [...] Team Providers + +------+ + | Care Clerk To Justice Name | Role | Phone | + +------+ + | Melvina TalleyP | PCP | | + +------+ + Encounter Details +--------+ + + + + | Date | Type | Department | Care Team | Description | +--------+ + + + + | 04/25/ | MyChart | Dig[facility]ive Health | Guzman Ferrell, | RE: Biopsy results | | 2017 | Encounter | Center at [facility] [address] | MD | | | | | [address] | | | | | | Mailcode: Center | | | | | | [facility] Health and | | | | | | [facility] [address] | | | | | | [place], [place] | | | | | | [address] | | | | | | [phone] | | | +--------+ + + + [...]
--- OUTSIDE RECORDS SUMMARY | ~2018-12-26 | XMS | Encounter Summary ---
Demographics + + + | Address | [address] | | | [place] [address] | + + + | Home Phone | | + + + | Preferred Language | Unknown | + + + | Marital Status | | + + + | Methodist Affiliation | NON | + + + | Race | White | + + + | Ethnic Group | Not or | + + + Author + + + | Author | [facility] | + + + | Organization | [facility] | + + + | Address [...] Team Providers + +------+ + | Care Floor Framer Name | Role | Phone | + [...] | | 2019 | Encounter | [address] | [address] | Cervical Spine MRI's | | | | [address] | [place], [place] | | | | | [place], [place] | [address] | | | | | [address] | [phone] | | | | | [phone] | | | +--------+ + + + [...]
--- OUTSIDE RECORDS SUMMARY | ~2018-12-26 | XMS | Encounter Summary ---
Demographics + + + | Address | [address] | | | [place] [address] | + + + | Home Phone | | + + + | Preferred Language | Unknown | + + + | Marital Status | | + + + | Catholic Affiliation | NON | + + [...] Team Providers + +------+ + | Care Custodian Manager Name | Role | Phone | [...] | | | | joint Cyst | COAL SHOOTER [address] | | | | | and mucocele | | [place], [place] | | | | | of nose and | [address] | [address] | | | | | nasal sinus | [place], | Phone: | | | | | Ins[place], | [place] | [phone] | | | | | unspecified | [address] | Fax: | | | | | | Phone: | [phone] | | | | | | [phone] | | | | | | | Fax: | | | | | | | [phone] | | +--------+--------+ + + + + Encounter Details +--------+---------+ + + + | Date | Type | Department | Care Team | Description | +--------+---------+ + + + | 06/25/ | Office | [place] [facility] | RafaCarmelita, | Chronic ethmoidal | | 2019 | Visit | Center at [facility] [address] | PA-C [address] | sinusitis; Chronic | | | | [address] | Ave [facility] [place] | maxillary sinusitis | | | | Mailcode: CH5E | [address] | | | | | [facility] | [phone] | | | | | and Healing, | | | | | | Building 1, | | | | | | Floor [place], [place] | | | | | | [address] | | | | | | [phone] | | | +--------+---------+ + + + [...] Craig PA-C - 06/25/2018 2:30 PM PDT [facility] HPI: Aniket Sweeney is a 37 y.o. female who [facility]osinus[facility]. She is s/p sinus [...] | + +--------+ + + + | [place] NASAL | Routin | 06/27/2018 | Chronic [...]
--- OUTSIDE RECORDS SUMMARY | ~2018-12-26 | XMS | Encounter Summary ---
Demographics + + + | Address | [address] | | | [place] [address] | + + + | Home Phone | | + + + | Preferred Language | Unknown | + + + | Marital Status | | + + + | Temple Affiliation | NON | + + + | Race | White | + + + | Ethnic Group | Not or | + + + Author + + + | Author | [facility] | + + + | Organization | [facility] | + + + | Address [...] Team Providers + +------+ + | Care Control Systems Engineer Name | Role | Phone | [...] | | | | [address] | [facility] [place] | [address] | | | | | [place] [address] | [address] | Hospital | | | | | TISSUE | Phone: | [place], [place] | | | | | CONTRAST | [phone] | [address] | | | | | | Fax: | Phone: | | | | | | [phone] | [phone] | | | | | | | Fax: | | | | | | | [phone] | +--------+--------+ + + + + Reason [...] SW | | | | | | HOUSING AND RESIDENCE LIFE DIRECTOR [address] | | | | | | | [place], [place] | | | | | | [address] | [address] | | | | | | [place], | Phone: | | | | | | [place] | [phone] | | | | | | [address] | Fax: | | | | | | Phone: | [phone] | | | | | | [phone] | | | | | | | Fax: | | | | | | | [phone] | | +--------+--------+ + + + + Encounter Details +--------+---------+ + + + | Date | Type | Department | Care Team | Description | +--------+---------+ + + + | 05/30/ | Office | Otolaryngology | Gloira, | Odynophagia (Primary | | 2017 | Visit | Laryngology Services | Lucy Zaidi PA-C | Dx); Globus | | | | at [facility] [address] | [address] | sensation; Laryngeal | | | | [address] [place], | [place], [place] | hyperfunction; | | | | [place] [address] | [address] | Muscle tension | | | | [phone] | [phone] | dysphonia; | | | | | [...] 05/30/2016 11:00 AM PDTThank you for choosing [facility] Department of Otolaryngology for your health care needs. If you need to speak to an ENT physician after normal business hours, please call [phone] and ask to have the ENT phys richa recreation adviser paged. 1. Get the CT scan of your neck. You will likely need to schedule this in 2 weeks when you come back to [place] 2. I will call you with the [...] instruments: Description #1: laryngoscope Serial ID #1: [id number] Lucy Martino PA-C - 05/30/2016 11:00 AM PDTFormatting of this note might be different from the origina l. PATIENT NAME:Aniket Kendall MR#: [id number] : 1980 REFERRING PROVIDER: TAMEKA Yin [facility] [address] [place] [address] PRIMARY CARE PROVIDER: TAMEKA Mistry CLINIC: [facility] for [facility]ing REASON FOR FOLLOW-UP: Chief Complaint Patient presents with Follow-up visit HPI: Aniket Kendall is a 35 y.o. 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 They are unclear what the headaches are due to. She says she has multiple lesions found previously on MRI which [facility]. She has undergone 5 prior spinal [...] when she comes given the distance from [place]. 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 This will assess ruling out seneca's syndrome and a lesion. I will call [...] i n this encounter Plan of Treatment Not on filedocumented as of this encounter Procedures + +--------+ + + + | Procedure Name | Priori | Date/Time | Associated Diagnosis | Comments | | | ty | | | | + +--------+ + + + | [place] | Routin | 05/31/2016 | Odynophagia | [...] Note | + + | Service Account, [employer] Res In Interface - 06/27/2016 4:09 PM [...]
--- OUTSIDE RECORDS SUMMARY | ~2018-12-26 | XMS | Encounter Summary ---
Demographics + + + | Address | [address] | | | [place] [address] | + + + | Home Phone | | + + + | Preferred Language | Unknown | + + + | Marital Status | | + + + | Denominational Affiliation | NON | + + + [...] Team Providers + +------+ + | Care Fence Installer Helper Name | Role | Phone | [...] Review | | 2016 | Encounter | [facility] & | [place] [address] | | | | | Imelda [address] | | | | | [address] Mailcode: | [place], [place] | | | | | [address] [facility] | [address] | | | | | Health and Healing, | | | | | | Building | | | | | | [place], [place] | | | | | | [address] | | | | | | [phone] | | | +--------+ + + + [...]
--- OUTSIDE RECORDS SUMMARY | ~2018-12-26 | XMS | Encounter Summary ---
Demographics + + + | Address | [address] | | | [place] [address] | + + + | Home Phone | | + + + | Preferred Language | Unknown | + + + | Marital Status | | + + + | Druze Affiliation | NON | + + + [...] Team Providers + +------+ + | Care Truck Engine Assembler Name | Role | Phone | + +------+ + | Melvina TalleyP | PCP | | + +------+ + Encounter Details +--------+ + + + + | Date | Type | Department | Care Team | Description | +--------+ + + + + | 06/11/ | Magazine Grinder Loader | Otolaryngology | Gloria, | Odynophagia (Primary | | 2016 | | Laryngology Services | Lucy E, PA-C | Dx) | | | | at [address] | [address] | | | | | [address] [place], | [place], [place] | | | | | [place] [address] | [address] | | | | | [phone] | [phone] | | | | | | | [...]
--- OUTSIDE RECORDS SUMMARY | ~2018-12-26 | XMS | Encounter Summary ---
Demographics + + + | Address | [address] | | | [place] [address] | + + + | Home Phone [...] + +------+ + | Care Director Of Web Marketing Name | Role | Phone | + +------+ + | Melvina TalleyP | PCP | | + +------+ + Encounter Details +--------+ + + + + | Date | Type | Department | Care Team | Description | +--------+ + + + + | 05/23/ | MyChart | [place] [facility] | Agustin Skelton | New problem | | 2016 | Encounter | Center at [facility] [address] | MD [address] | | | | | [address] | | | | | | Mailcode: JAIME | | | | | | [facility] | | | | | | and Healing, | | | | | | Building , | | | | | | Floor [place], [place] | | | | | | [address] | | | | | | [phone] | | | +--------+ + + + [...]
--- OUTSIDE RECORDS SUMMARY | ~2018-12-26 | XMS | Encounter Summary ---
Demographics + + + | Address | [address] | | | [place] [address] | + + + | Home Phone [...] Team Providers + +------+ + | Care Welcome Center Attendant Name | Role | Phone | [...] | | | | | | | [facility] [place] | | | | | | | [address] | +--------+--------+ + + + + Encounter Details +--------+---------+ + + + | Date | Type | Department | Care Team | Description | +--------+---------+ + + + | 04/07/ | Office | [place] [facility] | Haroon Biggs, | Chronic ethmoidal | | 2016 | Visit | Center at [facility] [address] | MD,MPH | sinusitis (Primary | | | | [address] | | Dx); Chronic | | | | Mailcode: 5E | | maxillary sinusitis; | | | | [place] for [facility] | | 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 Haroon Biggs M.D., M.P.H. Fellow, [facility] Instructor, Rhinology and Sinus Surgery Department of Otolaryngology/Head and Neck Surgery [email or web address] documented in this encounter Plan of Treatment Not on filedocumented as of this encounter Procedures + +--------+ + + + | Procedure Name | Priori | Date/Time | Associated Diagnosis | Comments | | | ty | | | | + +--------+ + + + | [place] NASAL | Routin | 04/07/2015 | Chronic [...]
--- OUTSIDE RECORDS SUMMARY | ~2018-12-26 | XMS | Encounter Summary ---
Demographics + + + | Address | [address] | | | [place] [address] | + + + | Home Phone [...] Team Providers + +------+ + | Care Dental Officer Name | Role | Phone | + +------+ + | Melvina Talley | PCP | | + +------+ + Encounter Details +--------+ + + + + | Date | Type | Department | Care Team | Description | +--------+ + + + + | 03/01/ | Pharmacy | [facility] | | | | 2015 | Visit | [facility] | | | | | | [address] | | | | | | Mailcode: [place] | | | | | | for Health and | | | | | | Healing, [address] | | | | | | [place], [place] | | | | | | [address] | | | | | | [phone] | | | +--------+ + + + [...]
--- OUTSIDE RECORDS SUMMARY | ~2018-12-26 | XMS | Encounter Summary ---
Demographics + + + | Address | [address] | | | [place] [address] | + + + | Home Phone [...] + + + | Author | [facility] | + + + | Organization | [facility] | + + + | Address [...] Providers + +------+ + | Care Manager It Training Name | Role | Phone | + +------+ + | Melvina Talley | PCP | | + +------+ + Encounter Details +--------+ + + + + | Date | Type | Department | Care Team | Description | +--------+ + + + + | 08/05/ | Document-Sc | UNKNOWN DEPARTMENT | Unknown . | | | 2015 | anned | [address] | | | | | | [address] | | | | | | [place], [place] | | | | | | [address] | | | +--------+ + + + [...] | + +--------+ + + + | RADIOLOGY | | 08/05/2014 | | Results for this | | | | 12:00 AM | | procedure are in the | | | | PDT | | results section. | + +--------+ + + + documented in this encounter Results RADIOLOGY (08/05/2014 12:00 AM PDT) + + + | Narrative | Performed At | + + + | | | + + + documented in this encounter Visit Diagnoses Not on filedocumented in this encounter"
--- OUTSIDE RECORDS SUMMARY | ~2018-12-26 | XMS | Encounter Summary ---
Demographics + + + | Address | [address] | | | [place] [address] | + + + | Home Phone [...] Team Providers + +------+ + | Care Product Owner Name | Role | Phone | + [...] | | ogy | | Lucy | [facility] [address] | | | | | Gastroesopha | DAVEY Zaidi | [address] | | | | | geal reflux | [address] | Mailcode: | | | | | disease, | Ave | [facility] | | | | | esophagitis | [place], [place] | for Health | | | | | presence not | [phone] | and Healing, | | | | | specified | Phone: | Building 2 | | | | | Procedures | [phone] | [place], [place] | | | | | CONSULT TO | Fax: | [address] | | | | | GI PROCEDURE | [phone] | Phone: | | | | | UNIT: EGD | | [phone] | | | | | LA UPPER GI | | Fax: | | | | | ENDOSCOPY,BI | | [phone] | | | | | OPSY | [...] | | | | | Essential | [facility] [place] | Rd [place], | | | | | (primary) | [address] | [place] | | | | | hypertension | Phone: | [phone] | | | | | Procedures | [phone] | Phone: | | | | | CONSULT TO | Fax: | [phone] | | | | | ADULT SLEEP | [phone] | Fax: | | | | | MEDICINE | | [phone] | | | | | LA NEW | | | | | | | PATIENT | | | | | | | LEVEL V LA | | | | | | | [...] SW | | | | | | YOUTH CORRECTIONS OFFICER [address] | | | | | | [address] | [place], [place] | | | | | | [address] | [address] | | | | | | [place], | Phone: | | | | | | [place] | [phone] | | | | | | [address] | Fax: | | | | | | Phone: | [phone] | | | | | | [phone] | | | | | | | Fax: | | | | | | | [phone] | | +--------+--------+ + + + + [...] Globus | | | | [address] [place], | [place], [place] | sensation; | | | | [place] [address] | [address] | Gastroesophageal | | | | [phone] | [phone] | reflux disease; | | | | [...] PM PSTThank you for choosing [facility] Department of Otolaryngology for your health care needs. If you need to speak to an ENT physician after normal business hours, please call [phone] and ask to have the ENT phys ician aviation all source intelligence paged. documented in this encounter Progress Notes Guadalupe Faulkner MA - 03/26/2016 1:30 PM PSTlaryngoscopy procedure was performed using the following instruments: Description #1: laryngoscope Serial ID #1: [id number] Lucy Jara PA-C - 03/26/2016 1:30 PM PSTFormatting of this note might be different from the nicolas jay PATIENT: Aniket Kendall [facility] MR#: [id number] : 1980 REQUESTING PROVIDER: TAMEKA Yin [facility] [address] [place] [address] PRIMARY CARE PROVIDER: TAMEKA Mistry CLINIC: [facility] CHIEF COMPLAINT: Chief Complaint Patient presents with New patient consultation HPI: Aniket Kendall is a 35 y.o. female who presents to the [facility] and Swallowing with [...] night after heavy use. 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 She finds if she yells she coughs. She reports coughing at night when she lays down t o go to bed. She has woken herself up due to the cough. She notes running out of air while s he talks. She did see a assembler camper locally and had pulmonary function testing. I [...] in nose two times daily. Mix with MyDROBE sinus irrigati ons. Irrigate BID. Sent to [facility] BYSTOLIC 10 mg oral tablet cyclobenzaprine [...] Laryngovideostroboscopy was performed today by Latha Vasquez, ZAID-HELMET BINDER. Th e patient was sprayed with Lidocaine [...]
--- OUTSIDE RECORDS SUMMARY | ~2018-12-26 | XMS | Encounter Summary ---
Demographics + + + | Address | [address] | | | [place] [address] | + + + | Home Phone | | + + + | Preferred Language | Unknown | + + + | Marital Status | | + + + | Presybeterian Affiliation | Unknown | + + + | Race | Unknown | + + + | Ethnic Group | Unknown | + + + Author + + + | Author | [facility] | | | and Brandynana | + + + | Organization | [facility] | | | and [...] Team Providers + +------+ + | Care Water Vessel Captain Name | Role | Phone | + +------+ + | Melvina Talley | PCP | | | FORGE OPERATOR HELPER | | | + +------+ + Reason [...] + + | 10/21/ | Telephone | [facility] | Joe Cespedes MD | Referral (Follow up) | | 2019 | | GASTROENTEROLOGY | [address], [facility] | (Did patient ever | | | | [address] | [address] [place] | go to [facility] | | | | [address] | [address] | Gastroenterology) | | | | [address] | | | | | | [phone] | | | +--------+ + + + [...]
--- OUTSIDE RECORDS SUMMARY | ~2018-12-26 | XMS | Encounter Summary ---
Demographics + + + | Address | [address] | | | [place] [address] | + + + | Home Phone [...] Providers + +------+ + | Care Manager Beverage Name | Role | Phone | + [...] | | | | | Gastro-esoph | [address] | and Healing, | | | | | ageal reflux | Phone: | Building 1, | | | | | disease | [phone] | 15th Floor | | | | | without | Fax: | [place], [place] | | | | | esophagitis | [phone] | [address] | | | | | Other | | Phone: | | | | | diseases of | | [phone] | | | | | larynx | | Fax: | | | | | Other | | [phone] | | | | | somatoform | [...] Visit | Center for Voice and | [facility] [address] | | | | | Swallowing at [facility] | [address] | | | | | [address] | [facility] [place] | | | | | Mailcode: CH15E | [address] | | | | | [facility] | | | | | | and Healing, | | | | | | Building | | | | | | Floor [place], [place] | | | | | | [address] | | | | | | [phone] | | | +--------+ + + + [...] of this encounter Progress Notes Marj Martinez, [facility] - 08/17/2016 1:00 PM PDT VOICE THERAPY PROGRESS NOTE CLINIC: [facility] CLINIC DATE: 08/17/16 REFERRING PHYSICIAN: TAMEKA Osborn PRIMARY DIAGNOSIS: 1. Dysphonia 2. Laryngeal hyperfunction 3. Globus sensation TREATMENT DIAGNOSIS: 1. Dysphonia 2. Laryngeal hyperfunction 3. Globus sensation DATE OF ONSET: 02/16/16 START OF CARE: 03/26/16 NUMBER OF SESSIONS: 3 DURATION OF SESSION: 60 min. 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 The patient lives in [place], [place], and was seen for her first [...] for further treatment when patient is [facility] [place] again. The patient did appear to understand [...] conversation today. PLAN: The patient lives in [place], [place], and will return for additional treatment in [facility]. Homework was provided. Marj Martinez MS, CCC[facility] Speech-Language Pathologist [facility] Department of Otolaryngology/ Head and Neck Surgery Appointments: [phone] documented in thi s encounter Plan of Treatment Not on filedocumented as of this encounter Procedures + +--------+ + + + | Procedure Name | Priori | Date/Time | Associated Diagnosis | Comments | | | ty | | | | + +--------+ + + + | FL SPEECH/HEARING | Routin | 08/17/2016 | Dysphonia [...]
--- OUTSIDE RECORDS SUMMARY | ~2018-12-26 | XMS | Encounter Summary ---
Demographics + + + | Address | [address] | | | [place] [address] | + + + | Home Phone | | + + + | Preferred Language | Unknown | + + + | Marital Status | | + + + | Latter Day Affiliation | NON | + + + [...] Team Providers + +------+ + | Care Copy Center Specialist Name | Role | Phone | [...]
--- OUTSIDE RECORDS SUMMARY | ~2018-12-26 | XMS | Encounter Summary ---
Demographics + + + | Address | [address] | | | [place] [address] | + + + | Home Phone | | + + + | Preferred Language | Unknown | + + + | Marital Status | | + + + | Congregation Affiliation | NON | + + + [...] Team Providers + +------+ + | Care Music Engineer Name | Role | Phone | [...] [id number] | | | | | | Siri K[address] | | | | | | [address] [place], [place] | | | | | | [address] | | | | | | [phone] | | | +--------+ + + + [...]
--- OUTSIDE RECORDS SUMMARY | ~2018-12-26 | XMS | Encounter Summary ---
Demographics + + + | Address | [address] | | | [place] [address] | + + + | Home Phone [...] Team Providers + +------+ + | Care Peoplesoft Financial Developer Name | Role | Phone | [...] Description | +--------+---------+ + + + | 03/01/ | Surgery | [facility] | Haroon Biggs, | BILATERAL MAXILLARY | | 2015 | | [facility] for [facility] | ,MPH | ANTROSTOMY, | | | | and Healing Surgery | | BILATERAL ANTERIOR | | | | Center Admitting | | ETHMOIDECTOMY, | | | | Desk Located on the | | REVISION | | | | 4th floor [address] | | SEPTOPLASTY, | | | | [address] [place], | | BILATERAL TURBINATE | | | | [place] [address] | | OUTFRACTURE | +--------+---------+ + + + Social History [...] Ellie Daigle RN - 03/01/2015 Nursing Michelle Barahona General discharge instructions for same-day procedure patients: [...] may receive a patient satisfaction survey from "Niurka Butcher". We sowmya pham appreciate your feedback on [...] hours. | | | | | | release(/EC) | | | | | | + [...] Garduno | | | | | | MMarcelPathologistElectroni | | | | | | brian [...] | + + + + + | [facility] | [address] | [place] [address] | | | PATHOLOGY | [address] | | | + + + + + CARDIOLOGY (03/01/2015 12:00 AM PST) + + + | Narrative | Performed At | + + + | | | + + + documented in this encounter Visit Diagnoses Not on filedocumented in this encounter Administered Medications + +--------+ +------+------+ + | Medication Order | MAR | Action | Dose | Rate | Site | | | Action | Date | | | | + +--------+ +------+------+ + | lidocaine-EPINEPHrine | Given | 03/01/19 | 7 mL | | Surgical | | (XYLOCAINE WITH EPINEPHRINE) 1 | | 16 11:13 | | | Site | | %-1:100,000 injection | | AM PST | | | | | INTRAPROCEDURE PRN, Starting Tue | | | | | | | 03/01/15 at 1113, Until Tue | | | | | | | 03/01/15 at 1209 | | | | | | + +--------+ +------+------+ + +---+---+ | | | +---+---+ + +-------+ +---+---+ + | Mixture - fluorescein eye | Given | 03/01/19 | | | Surgical | | strip-EPINEPHrine 1:1000 topical | | 16 11:12 | | | Site | | solution INTRAPROCEDURE PRN, | | AM PST | | | | | Starting 03/01/15 at 1112, | | | | | | | Until 03/01/15 at 1209 | | | | | | + +-------+ +---+---+ + +---+---+ | | | +---+---+ + +-------+ +------+---+---+ | oxyCODONE (immediate release) | Given | [...] | | | | + +-------+ +------+---+---+ +-------+ +------+---+---+ | Given | 03/01/19 | [...] PST | | | | | dose, 03/01/15 at 1100 | | | | | | + + + +---------+---+---+ +---+---+ | | | +---+---+ documented in this encounter
--- OUTSIDE RECORDS SUMMARY | ~2018-12-26 | XMS | Encounter Summary ---
Demographics + + + | Address | [address] | | | [place] [address] | + + + | Home Phone | | + + + | Preferred Language | Unknown | + + + | Marital Status | | + + + | Adventist Affiliation | NON | + + + [...] Team Providers + +------+ + | Care Ad Copy Writer Name | Role | Phone | + [...] | | | 2016 | Event | [facility] | MD [address] | | | | | and Healing Surgery | [address] | | | | | Center Admitting | [place], [place] | | | | | Desk Located on the | [address] | | | | | 4th floor [address] | [phone] | | | | | [address] [place], | | | | | | [place] [address] | | | +--------+ + + + [...] | +---+---+ + +-------+ +--------+---+---+ | glycopyrrolate (ROBINUL) | Given | 03/01/19 | 0.4 mg [...] | Until e 03/01/15 at 1213 | iology | | [...]
--- OUTSIDE RECORDS SUMMARY | ~2018-12-26 | XMS | Clinical Summary ---
Demographics + + + | Address | [address] | | | [place] [address] | + + + | Home Phone | | + + + | Preferred Language | Unknown | + + + | Marital Status | | + + + | Amish Affiliation | Unknown | + + + | Race | Unknown | + + + | Ethnic Group | Unknown | + + + Author + + + | Author | [facility] | | | and Brandynana | + + + | Organization | [facility] | | | and Brandynana | [...] + +------+ + | Care Director Of Solutions Architecture Name | Role | Phone | + +------+ + | Melvina Talley | PCP | | | ENVIRONMENTAL PROTECTION GEOLOGIST | | | + +------+ + Allergies [...] 11/08/2016 | + + + | Other intermodal owner operator truck driver (current) drug therapy | 11/08/2016 | + [...] | [employer] | [employer] | [id number] | | [phone] | | Med[employer] | [...] | 1981 | [phone] | [place] [address] | | | paramjit | | | 6 (Home) | | + +--------+ +--------+ + + Advance Directives Patient has advance care planning documents on file. For more information, please contact:Augustin [facility] [place] [address]
--- OUTSIDE RECORDS SUMMARY | ~2018-12-26 | XMS | Encounter Summary ---
Demographics + + + | Address | [address] | | | [place] [address] | + + + | Home Phone [...] Team Providers + +------+ + | Care Architectural Administrative Assistant Name | Role | Phone | [...] | | | | | sinusitis | [address] | and Healing, | | | | | Chronic | | Building 1, | | | | | frontal | | 3rd Floor | | | | | sinusitis | | [place], [place] | | | | | Chronic | | [address] | | | | | sphenoidal | | Phone: | | | | | sinusitis | | [phone] | | | | | Procedures | | Fax: | | | | | CT SINUS WO | | [phone] | | | | | CONTRAST | | | | | | | ROUTINE | | | | | | | (LANDMARX | | | | | | | PROTOCOL) | | | | | | | MO CT | | | | | | [...] | | | | nose and | METAL NUMERICAL TOOL PROGRAMMER [address] | | | | | nasal sinus | | [place], [place] | | | | | | [address] | [address] | | | | | | [place], | | | | | | | [place] | | | | | | | [address] | | | | | | | Phone: | | | | | | | [phone] | | | | | | | Fax: | | | | | | | [phone] | | +--------+--------+ + + + + Encounter Details +--------+---------+ + + + | Date | Type | Department | Care Team | Description | +--------+---------+ + + + | 02/03/ | Office | [facility] | Haroon Biggs, | Chronic ethmoidal | | 2014 | Visit | Center at [facility] [address] | sinusitis (Primary | | | | [address] | | Dx); Chronic | | | | Mailcode: CH5E | | maxillary sinusitis; | | | | [facility] | | Chronic frontal | | | | and Healing, | | sinusitis; Chronic | | | | Building 1 | | sphenoidal sinusitis | | | | Floor [place], [place] | | | | | | [address] | | | | | | [phone] | | | +--------+---------+ + + + [...] Biggs MD,MPH - 02/03/2015 8:21 AM PST [facility] HPI: Aniket Kendall is a 34 y.o. female who [facility] Chronic rhinosinusitis s/p surgery. [...] provided. Haroon Biggs M.D., M.P.H. Fellow, [facility] Instructor, Rhinology and Sinus Surgery Department of Otolaryngology/Head and Neck Surgery [email or web address] documented in this encounter Plan of Treatment Not on filedocumented as of this encounter Procedures + +--------+ + + + | Procedure Name | Priori | Date/Time | Associated Diagnosis | Comments | | | ty | | | | + +--------+ + + + | MO NASAL | Routin | 02/03/2015 | Chronic [...]
--- OUTSIDE RECORDS SUMMARY | ~2018-12-26 | XMS | Encounter Summary ---
Demographics + + + | Address | [address] | | | [place] [address] | + + + | Home Phone [...] Team Providers + +------+ + | Care Marking Machine Operator Name | Role | Phone | + +------+ + | Melvina TalleyP | PCP | | + +------+ + Encounter Details +--------+ + + + + | Date | Type | Department | Care Team | Description | +--------+ + + + + | 04/11/ | Inside | [facility] at [facility] | [place], | | | 2017 | Referral | [facility] [address] | Lucy Ohara PA-C | | | | Order | [address] Mailcode: | [address] | | | | | [facility] for | [place], [place] | | | | | Health and Healing, | [address] | | | | | [place] [address] | [phone] | | | | | [facility] [place] | | | | | | [address] | | | | | | [phone] | | | +--------+ + + + [...] on filedocumented as of this encounter Results EGD (04/19/2016 10:56 AM PST) + + | Specimen | + + | | + + + + + | Narrative | Performed At | + + + | MRN: | [facility] | | [id number] Date: 04/19/2016Patient Name: Order #: [id number] | ENDOSCOPY | | of : 1980CSN: [id number]: [facility] 3Procedure: | | | Upper GI endoscopyIndications: Heartburn, Globus | | | sensationProviders: KAYLEEN MCCORMICK MD (Doctor), KARTIK | | | SHERRI STACY (Nurse), CLAUDIA CARTER, | | | Raymond Mill Operator (Raymond Mill Operator)Referring MD: LUCY Serrano | | | ANGEL MYERS-CRequesting Provider: Medicines: Fentanyl | | | 100 [...] | | | The Olympus [id number] Endoscope #[id number] | | | was introduced through the [...] - Recommend acid suppression | | | medication.KAYLEEN MCCORMICK MD04/19/2016 11:32:42 AMNumber of Addenda: | | | 0Note Initiated On: 04/19/2016 10:56 AM | | | - Normal examined duodenum. | | |Recommendation: - Await pathology results. | | | - Recommend acid suppression medication. | | |KAYLEEN MCCORMICK MD | | |04/19/2016 11:32:42 AM [...] Gastroesophageal reflux disease, esophagitis presence not specified - Primary | + + documented in this encounter"
--- OUTSIDE RECORDS SUMMARY | ~2018-12-26 | XMS | Encounter Summary ---
Demographics + + + | Address | [address] | | | [place] [address] | + + + | Home Phone [...] Team Providers + +------+ + | Care Chemical Machine Tender Name | Role | Phone | [...] | | ogy | | Lucy | [facility] [address] | | | | | Gastroesopha | [address] | [address] | | | | | geal reflux | [address] | Mailcode: | | | | | disease, | Ave | [facility] | | | | | esophagitis | [place], [place] | for Health | | | | | presence not | [address] | and Healing, | | | | | specified | Phone: | Building 2 | | | | | Procedures | [phone] | [place], [place] | | | | | CONSULT TO | Fax: | [address] | | | | | GI PROCEDURE | [phone] | Phone: | | | | | UNIT: EGD | | [phone] | | | | | DC UPPER GI | | Fax: | | | | | ENDOSCOPY,BI | | [phone] | | | | | OPSY | [...] | | | | | Essential | [facility], [place] | Rd [place], | | | | | (primary) | [address] | [place] | | | | | hypertension | Phone: | [phone] | | | | | Procedures | [phone] | Phone: | | | | | CONSULT TO | Fax: | [phone] | | | | | ADULT SLEEP | [phone] | Fax: | | | | | MEDICINE | | [phone] | | | | | DC NEW | | | | | | | PATIENT | | | | | | | LEVEL V DC | | | | | | | [...] SW | | | | | | ANDROID FRAMEWORK DEVELOPER [address] | | | | | | [address] | [place], [place] | | | | | | [address] | [address] | | | | | | [place], | Phone: | | | | | | [place] | [phone] | | | | | | [address] | Fax: | | | | | | Phone: | [phone] | | | | | | [phone] | | | | | | | Fax: | | | | | | | [phone] | | +--------+--------+ + + + + [...] Globus | | | | [address] [place], | [place], [place] | sensation; | | | | [place] [address] | [address] | Gastroesophageal | | | | [phone] | [phone] | reflux disease; | | | | [...] 1:30 PM PSTThank you for choosing [facility] Department of Otolaryngology for your health care needs. If you need to speak to an ENT physician after normal business hours, please call [phone] and ask to have the ENT phys ician tier and detonator paged. documented in this encounter Progress Notes Guadalupe Faulkner MA - 03/26/2016 1:30 PM PSTlaryngoscopy procedure was performed using the following instruments: Description #1: laryngoscope Serial ID #1: [id number] Lucy Jara PA-C - 03/26/2016 1:30 PM PSTFormatting of this note might be different from the nicolas jay PATIENT: Aniket Kendall [facility] MR#: [id number] : 1980 REQUESTING PROVIDER: TAMEKA Yin [facility] [address] [place] [address] PRIMARY CARE PROVIDER: TAMEKA Mistry CLINIC: [facility] CHIEF COMPLAINT: Chief Complaint Patient presents with New patient consultation HPI: Aniket Kendall is a 35 y.o. female who presents to the [facility] with [...] night after heavy use. 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 She finds if she yells she coughs. She reports coughing at night when she lays down t o go to bed. She has woken herself up due to the cough. She notes running out of air while s he talks. She did see a drum attendant locally and had pulmonary function testing. I [...] in nose two times daily. Mix with Dealdrive sinus irrigati ons. Irrigate BID. Sent to [facility] BYSTOLIC 10 mg oral tablet cyclobenzaprine [...] Laryngovideostroboscopy was performed today by Latha Vasquez, ZAID-MANUFACTURING ASSEMBLER. Th e patient was sprayed with Lidocaine [...]
--- OUTSIDE RECORDS SUMMARY | ~2018-12-26 | XMS | Encounter Summary ---
Demographics + + + | Address | [address] | | | [place] [address] | + + + | Home Phone [...] Team Providers + +------+ + | Care Statuary Painter Name | Role | Phone | + +------+ + | Melvina TalleyP | PCP | | + +------+ + Reason for Referral Diagnostic Testing (Routine) + +--------+ + + + + | Status | Reason | Specialty | Diagnoses / | Referred By | Referred To | | | | | Procedures | Contact | Contact | + +--------+ + + + + | New Request | | Clinical | Diagnoses | Buzz | | | | | Neurophysiolo | Myoclonus | Keon Alvarenga | | | | | gy | Procedures | MD [address] | | | | | | EEG 24 HR, | [address] | | | | | | NO VIDEO, | [place], [place] | | | | | | AMBULATORY, | [address] | | | | | | ADULT | Phone: | | | | | | | [phone] | | | | | | | Fax: | | | | | | | [phone] | | + +--------+ + + + + Reason for Visit Office Visit - E/M Services (Routine) +--------+--------+ [...] | | | | epileptic | | [facility] | | | | | syndromes, | | for Health | | | | | not | | and Healing, | | | | | intractable, | | Building 1, | | | | | without | | 8th Floor | | | | | status | | [place], [place] | | | | | epilepticus | | [address] | | | | | Procedures | | Phone: | | | | | GA NEW | | [phone] | | | | | PATIENT | | Fax: | | | | | LEVEL V GA | | [phone] | | | | | EST PATIENT | | | | | | | LEVEL V | | | +--------+--------+ + + + + Encounter Details +--------+---------+ + + + | Date | Type | Department | Care Team | Description | +--------+---------+ + + + | 08/04/ | Office | Neurology at | Keon Gerber, | Migraine without | | 2019 | Visit | [place] [address] [address] | MD [address] | aura and without | | | | [address] | [place], [place] | status migrainosus, | | | | [place], [place] | [address] | not intractable | | | | [address] | [phone] | (Primary Dx); | | | | [phone] | | Myoclonus; RLS | | | | | | (restless legs | | | | | | syndrome) | +--------+---------+ + + + Social History [...] Instructions Patient Instructions Keon Gerber MD - 08/04/2018 3:55 PM PDT1. Will get an ambulatory EEG (which includes sleep) - To schedule an appointment for your EEG, please call the EEG department at [phone]. 2. Continue levetiracetam 1500 mg twice a day 3. Start gabapentin 300 mg nightly, increase by 300 mg every week until on 300 mg three lauri es daily - This can help with anxiety, sleep, restless leg, myoclonus and seizure prevention 4. Consider increase in ropinirole to 2 mg nightly if continue to have symptoms despite neftaly apentin 5. Consider a different agent for sleep (makes sense that Seroquel makes RLS worse) 6. Return to clinic in 3 months 4 :28 PM PDT documented in this encounter Progress Notes Keon Gerber MD - 08/04/2018 3:55 PM PDTFormatting of this note might be different fro m the original. [facility] NEUROLOGY CLINIC FOLLOW UP NOTE Today's Date: 08/04/2018 Last Visit: 03/14/2018 Author: Keon Gerber MD Patient ID: Aniket Sweeney is a 37 y.o. woman who is referred for neurological consulta tion for evaluation of a constellation of symptoms, particularly the jerking of extremities on the left. 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 She notes that she started having jerking movement which has been present since 2013. She was started on Keppra 500 mg bid after seeing Dr Bertrand in e ED on 12/09/217 and she states that the jerking improved; was occurring >100x a day and n ow is having half this time. She has been having intermittent "spasms" of her left foot, leg , thigh and also clinching of her right jaw. She states that the twitching episodes; particu larly in her left leg will last seconds but come in clusters; she states that there is an in termittent buzzing in her left leg which lasts a few seconds at a time. She states that ther e is a crawling feeling which is similar to restless leg syndrome in the evening. She states that this feels like crawling in her legs; she trialed ropinirole 1 mg qhs which she states hasn't helped her symptoms. Foot or hand will "clinch" or pose in an awkward way, remain th at way for sometimes <1 minute and sometimes up to 10 minutes then release; this may occur 1-2x a day. She has had an extensive neurologic work-up in the past which includes 4x lumbar punctures, MRIs of brain and spine, and EEG monitoring. Her seizures were described as jerking and spa sms of her left hand, leg, and foot without alteration of awareness. She has followed [facility] neurologists; saw Dr Nguyen Prince at [facility] in 2013 who suspected myocl onus. Per patient, she had an EEG which captured them and was told that the EEG was normal ( work-up done in [place], [place]). She was not started on medications, but referred to [facility] neur ology for further evaluation/treatment options. She saw Neurology at [facility]; Dr Hauser in 02/2015 who suspected [...] or tearing out of her right eye. Treatment Hx: Levetiracetam 11/2017-current Data: *MRI brain w/o (02/02/1998): 1. Mild [...] cyst in the left m axillary sinus. *MRI brain w/w/o (07/11/2018): 1.There are a few small focal areas of increased FLAIR si gnal within the white matter of the high anterior frontal lobes bilaterally. These are essen tially unchanged since the prior outside MRI of 2013 and do not enhance. 2.Otherwise unr emarkable contrast-enhanced MRI of the brain. *MRI cervical spine w/w/o (07/11/2018): Normal contrast-enhanced MRI of the cervical spine. No disc disease or stenosis is seen. There is also no cervical spine cord lesion identified. 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 She states that the tips of her fingers feel burnt. She has persistent numbness in her fingers which started about a month ago. - She notices buzzing in her legs which has been present for 8 months, states that it feel s like she has a cell phone in her pocket. - Repeat MRI brain and cervical spine MRI obtained, both without intramedullary, intracran ial abnormalities - She has recently started Seroquel 100 mg qhs for sleep and believes this has made her res tless leg symptoms worse - She doesn't like the medication as she is only sleeping for an hour before she is woken up by restless leg symptoms - She also takes lorazepam 1 mg in AM, 1 mg in PM, 2 mg in PM, also takes zolpidem 10 mg q hs and melatonin 60 mg qhs - She takes ropinirole 1 mg qhs, she states this helps with restless leg symptoms - She reports stabbing pain behind her right eye, intermittent blurry vision, she states th at this is always present - She thinks that pain is radiating from her neck to her right eye - She reports lost time, missing a couple hours a day, any time throughout the day and this is random - She will feel like parts of the day didn't happen - She was brought in to the ED 3 months ago and children claimed that she had taken somethi ng (14 and 16 yo) - UTox was negative, she does not recall anything about the incident - She reports multiple family members that have had brain aneurysms: maternal uncle, matern al aunt, maternal grandfather, maternal great grandfather - None of these are first degree family relatives Neurologic ROS: ALLEN: + Focal weakness: - Focal numbness: + bilateral hands Tingling/paresthesias: - Difficulty walking: - Difficulty with balance: - Vertigo: - Scotoma: - Change in vision: + intermittent double vision, loss of vision, eye pain Change in hearing: - Tinnitus: - Fatigue: + Cognitive problems: +, C/o problems with memory, concentration, word finding difficulty. Spasticity: - Urinary: - Llhermitte's: - Psychiatric: She reports abnormal anxiety, depression, panic attacks, hallucinations; will talk to people. thoughts of suicide but no plan Current Medications: Current Inpatient Medications Medication baclofen 10 mg oral tablet budesonide 0.5 mg/2 mL inhalation suspension for nebulization cyanocobalamin 1,000 mcg/mL injection solution ergocalciferol (VITAMIN D2) 50,000 unit oral capsule FLUoxetine 10 mg oral capsule gabapentin 300 mg oral capsule hydrOXYzine 10 mg oral tablet levETIRAcetam 750 mg oral tablet lisinopril 5 mg oral tablet LORazepam 1 mg oral tablet omeprazole 20 mg oral capsule,delayed release(DR/EC) ondansetron 8 mg oral tablet oxyCODONE (immediate release) 10 mg oral tablet promethazine 12.5 mg oral tablet QUEtiapine 100 mg oral tablet rOPINIRole 1 mg oral tablet zolpidem 10 mg oral tablet No current facility-administered medications for this visit. Exam Vitals: 08/04/18 1549 BP: 117/82 BP Location: Left upper arm Patient Position: Sitting Pulse: 88 Resp: 16 SpO2: 97% Weight: 84 kg (185 lb 3 oz) PainSc: 06 - Severe PainLoc: Generalized GEN: pleasant, NAD, WDWN. Appropriate mood and affect. +Occipital tenderness MS: Awake, alert, fully oriented. Patient is a good historian and follows examination well. Normal language function. No neglect. CRANIAL NERVES: I: Not tested II: PERRLA. VFFTC. No RAPD. III, IV, : Gaze conjugate, EOMI V: [...] bilateral upper and lower extremities. Pin prick: Decreased distal extremities (distal to right knee, left mid alcantara), distal to el bows, intact proximally COORDINATION: Finger to Nose Intact Bilaterally Rapid [...] Skin: No rashes or significant breakdown Labs: None new Assessment: Myoclonus Migraine without aura Restless leg syndrome Discussion: Aniket Sweeney is a 38 year old woman here in follow up. Since last here, Mrs Sweeney has gradually increased levetiracetam to 1500 mg bid which she s tates helps with episodic jerking episodes however they continue to occur multiple times a d ay. On examination she continues to have decreased sensation to pinprick in distal legs bila terally which is stable compared to prior. As she continues to have intermittent episodes of jerking limbs (never apparent on in person assessment), will get ambulatory EEG to capture these events and investigate for possible cortical myoclonus which may warrant additional tr eatment options including valproate. Since last here she has started quetiapine 100 mg qhs for sleep and endorses worsening of r estless leg symptoms. She continues ropinirole 1 mg qhs for RLS. Ferritin was previously christiano cked and within normal limits. We discussed alternative management for sleep and also discus sed medication management with gabapentin which can help for anxiety management, sleep, myoc lonus and epilepsy. Will start with 300 mg qhs and increase gradually to 300 mg tid, PARQ di scussion held. In the future could consider increasing ropinirole to 2 mg qhs however as sta rting gabapentin, will hold off on this. Plan: - Continue levetiracetam 1500 mg bid - Ambulatory EEG - Start Gabapentin, titrate up to 300 mg tid - Continue ropinirole 1 mg qhs - RTC in 3 months Orders Placed This Encounter EEG 24 hr, No Video, Ambulatory, Adult [[id number]] gabapentin 300 mg oral capsule I spent 45 minutes with the patient during the visit. More than half of the visit was spent counseling the patient. Keon Gerber MD Neurology Department [facility] [place] Pager [phone] signed by Keon Gerber MD at 08/05/2018 4:25 PM PDTdocumented in this encounter Plan of Treatment + + +--------+ + + | Name | Type | Priori | Associated Diagnoses | Order Schedule | | | | ty | | | + + +--------+ + + | EEG 24 HR, NO VIDEO, | Procedures | Routin | Myoclonus | Expected: 08/04/2018 | | AMBULATORY, ADULT | | e | | (Approximate), | | | | | | Expires: 09/04/2019 | + + +--------+ + + documented as of this encounter Visit Diagnoses + + | Diagnosis | + + | Migraine without aura and without status migrainosus, not intractable - Primary | | Migraine without aura, without mention of intractable migraine without mention of status | | migrainosus | + + | Myoclonus | + + | RLS (restless legs syndrome) Restless legs syndrome (RLS) | + + documented in this encounter
--- OUTSIDE RECORDS SUMMARY | ~2018-12-26 | XMS | Encounter Summary ---
Demographics + + + | Address | [address] | | | [place] [address] | + + + | Home Phone | | + + + | Preferred Language | Unknown | + + + | Marital Status | | + + + | Jainism Affiliation | NON | + + + [...] Team Providers + +------+ + | Care Estimate Clerk Name | Role | Phone | [...] | Laryngology Services | MD Maria T [address] | | | | | at [facility] [address] | | | | | [place], | [place], [place] | | | | | [place] [address] | [address] | | | | | [phone] | [phone] | | | | | | | [...]
--- OUTSIDE RECORDS SUMMARY | ~2018-12-26 | XMS | Encounter Summary ---
Demographics + + + | Address | [address] | | | [place] [address] | + + + | Home Phone [...] Team Providers + +------+ + | Care Batch Plant Supervisor Name | Role | Phone | + +------+ + | Melvina TalleyP | PCP | | + +------+ + Encounter Details +--------+ + + + + | Date | Type | Department | Care Team | Description | +--------+ + + + + | 07/31/ | Documentati | [facility] | Haroon Biggs, | | | 2016 | on | Center at [facility] [address] | [place] | | | | | [address] | | | | | | Mailcode: CHE | | | | | | [facility] | | | | | | and Healing, | | | | | | Building 1, 5th | | | | | | Floor [place], [place] | | | | | | [address] | | | | | | [phone] | | | +--------+ + + + [...]
--- OUTSIDE RECORDS SUMMARY | ~2018-12-26 | XMS | Encounter Summary ---
Demographics + + + | Address | [address] | | | [place] [address] | + + + | Home Phone [...] Team Providers + +------+ + | Care Pouring Crane Operator Name | Role | Phone | [...] | | | 2016 | Event | [facility] | MD Meek MANN Maynor | | | | | and Healing Surgery | [address] | | | | | Center Admitting | [place], [place] | | | | | Desk Located on the | [address] | | | | | 4th floor [address] | [phone] | | | | | [address] [place], | | | | | | [place] [address] | | | +--------+ + + + [...]
--- OUTSIDE RECORDS SUMMARY | ~2018-12-26 | XMS | Encounter Summary ---
Demographics + + + | Address | [address] | | | [place] [address] | + + + | Home Phone [...] Team Providers + +------+ + | Care Group Practice Pediatrician Name | Role | Phone | + +------+ + | Melvina TalleyP | PCP | | + +------+ + Encounter Details +--------+ + + + + | Date | Type | Department | Care Team | Description | +--------+ + + + + | 04/20/ | Documentati | Digestive Health | Guzman Ferrell, | | | 2017 | on | Center at [facility] [address] | MD | | | | | [address] | | | | | | Mailcode: Center | | | | | | for Health and | | | | | | Healing, [facility] [address] | | | | | | [place], [place] | | | | | | [address] | | | | | | [phone] | | | +--------+ + + + [...]
--- OUTSIDE RECORDS SUMMARY | ~2018-12-26 | XMS | Encounter Summary ---
Demographics + + + | Address | [address] | | | [place] [address] | + + + | Home Phone [...] Team Providers + +------+ + | Care Lead Pastor Name | Role | Phone | + [...] as of this encounter Progress Notes Interface, Conservation Engineer In - 02/11/2006 2:31 AM PSTCLINIC DATE: 05/31/1998 GENERAL NEUROLOGY CLINIC SUBJECTIVE: Ms. Kendall returns for followup of her migraines. I last saw her on February 22. She had an MRI completed in [place] which was suggestive of hippocampal sclerosis, but followup MRI with temporal lobe cuts here at [facility] was negative. She also had a negative [...] M.D. JQ/wdf cc: GARRY WAY MD [address] [place] [id number] signed by Interface, Conservation Engineer In at 02/11/2006 2:31 AM PSTdocumented in this encounter Plan of Treatment Not on filedocumented as of this encounter Visit Diagnoses Not on filedocumented in this encounter"
--- OUTSIDE RECORDS SUMMARY | ~2018-12-26 | XMS | Encounter Summary ---
Demographics + + + | Address | [address] 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 | Fax: | | | | | | | [phone] | | +--------+--------+ + + + + Encounter Details +--------+---------+ + + + | Date | Type | Department | Care Team | Description | +--------+---------+ + + + | 08/17/ | Office | Otolaryngology | Gloria, | Globus sensation | | 2017 | Visit | Laryngology Services | Lucy Ohara PA-C | (Primary Dx); | | | | at [facility] [address] | [address] | Laryngeal | | | | [address] [place], | [place], [place] | hyperfunction; | | | | [place] [address] | [address] | Dysphonia; | | | | [phone] | [phone] | Odynophagia; Serous | | | | [...] in this encounter Patient Instructions Patient Instructions Guadalpue Faulkner MA - 08/17/2016 2:00 PM PDTThank you for choosing [facility] Department of Otolaryngology for your health care needs. If you need to speak to an ENT physician after normal business hours, please call [phone] and ask to have the ENT phys ician auto transmission specialist paged. documented in this encounter Progress Notes Guadalupe Faulkner MA - 08/17/2016 2:00 PM PDTlaryngoscopy procedure was performed using the following instruments: Description #1: laryngoscope Serial ID #1: [id number] Lucy Martino PA-C - 08/17/2016 2:00 PM PDTFormatting of this note might be different from the origina l. PATIENT NAME:Aniket Kendall [facility] MR#: [id number] : 1980 REFERRING PROVIDER: TAMEKA Yin [facility] [address] [place] [address] PRIMARY CARE PROVIDER: TAMEKA Mistry CLINIC: [facility] REASON FOR FOLLOW-UP: Chief Complaint Patient presents with Follow-up visit HPI: Aniket Kendall is a 36 y.o. female who was last seen at the [facility] for sensation of a lump in her throat, hoarseness and throat pain upo n swallowing. It was recommended that she undergo back to back sessions of voice therapy gi shady the distance she has to drive from [place]. She returns today noting that she feels [...] her CPAP machine due to trouble with [employer] companies. She has yet to get it [...] otalgia, odynophagia or hemoptysis. Cathleen Castro PA-C [facility] Department of Otolaryngology and Head and Neck Surgery documented i n this encounter Plan of Treatment Not on filedocumented as of this encounter Procedures + +--------+ + + + | Procedure Name | Priori | Date/Time | Associated Diagnosis | Comments | | | ty | | | | + +--------+ + + + | [place] | Routin | 08/17/2016 | Globus sensation [...]
--- OUTSIDE RECORDS SUMMARY | ~2018-12-26 | XMS | Encounter Summary ---
Demographics + + + | Address | [address] | | | [place] [address] | + + + | Home Phone [...] Team Providers + +------+ + | Care Editor Managing Director Name | Role | Phone | [...] + + | 03/04/ | Telephone | [facility] | Haroon Biggs, | Discussion (Pt had | | 2015 | | Center at [facility] [address] | ,[facility] | surgery on Saturday, | | | | [address] | | woke up last night | | | | Mailcode: [facility] | | and sneezed and had | | | | [facility] | | some bleeding, but | | | | and Healing, | | no other bleeding | | | | Building 1, [address]th | | today. Having a lot | | | | Floor [place], [place] | | of lightheadedness | | | | [address] | | and nausea. Took BP | | | | [phone] | | and it was 94/60, | [...]
--- OUTSIDE RECORDS SUMMARY | ~2018-12-26 | XMS | Encounter Summary ---
Demographics + + + | Address | [address] | | | [place] [address] | + + + | Home Phone [...] Providers + +------+ + | Care Marking Room Supervisor Name | Role | Phone | [...] + + | 03/01/ | Surgery | [facility] | Haroon Biggs, | BILATERAL MAXILLARY | | 2015 | | Center for [facility] | ,[facility] | ANTROSTOMY, | | | | and Healing Surgery | | BILATERAL ANTERIOR | | | | Center Admitting | | ETHMOIDECTOMY, | | | | Desk Located on the | | REVISION | | | | 4th floor [address] | | SEPTOPLASTY, | | | | [address] [place], | | BILATERAL TURBINATE | | | | [place] [address] | | OUTFRACTURE | +--------+---------+ + + [...] | + + + + + | [facility] | [address] | [place] [address] | | | PATHOLOGY | [address] [...]
--- OUTSIDE RECORDS SUMMARY | ~2018-12-26 | XMS | Encounter Summary ---
Demographics + + + | Address | [address] | | | [place] [address] | + + + | Home Phone [...] Team Providers + +------+ + | Care Clinical Staff Rn Name | Role | Phone | + +------+ + | Melvina TalleyP | PCP | | + +------+ + Encounter Details +--------+ + + + + | Date | Type | Department | Care Team | Description | +--------+ + + + + | 07/31/ | MyChart | [facility] | Tony Rodriguez, | RE: | | 2016 | Encounter | Center at [facility] [address] | [place] [address]--insurance | | | | [address] | [address] | denied | | | | Mailcode: [address] | [place], [place] | | | | | [facility] | [address] | | | | | and [address], | | | | | | Building , | | | | | | Floor [place], [place] | | | | | | [address] | | | | | | [phone] | | | +--------+ + + + [...]
--- OUTSIDE RECORDS SUMMARY | ~2018-12-26 | XMS | Encounter Summary ---
Demographics + + + | Address | [address] | | | [place] [address] | + + + | Home Phone [...] + + + | Author | [facility] | + + + | Organization | [facility] | + + + | Address [...] Team Providers + +------+ + | Care Early Childhood Assistant Name | Role | Phone | [...] | 2016 | Encounter | Center at [facility] [address] | [facility] | nose | | | | [address] | | | | | | Mailcode: [address] | | | | | | [facility] | | | | | | and [place], | | | | | | Building , | | | | | | [place], [place] | | | | | | [address] | | | | | | [phone] | | | +--------+ + + + [...]
--- OUTSIDE RECORDS SUMMARY | ~2018-12-26 | XMS | Encounter Summary ---
Demographics + + + | Address | [address] | | | [place] [address] | + + + | Home Phone [...] Team Providers + +------+ + | Care Replanter Name | Role | Phone | + [...] | | | | W CONTRAST | [facility] [place] [place] | [address] [facility] | | | | | [place] [address] NECK | [address] | Hospital | | | | | TISSUE | Phone: | [place], [place] | | | | | CONTRAST | [phone] | [address] | | | | | | Fax: | Phone: | | | | | | [phone] | [phone] | | | | | | | Fax: | | | | | | | [phone] | +--------+--------+ + + + + Reason [...] SW | | | | | | JUNIOR ENGINEER [address] | | | | | | | [place], [place] | | | | | | [address] | [address] | | | | | | [place], | Phone: | | | | | | [place] | [phone] | | | | | | [address] | Fax: | | | | | | Phone: | [phone] | | | | | | [phone] | | | | | | | Fax: | | | | | | | [phone] | | +--------+--------+ + + + + Encounter Details +--------+---------+ + + + | Date | Type | Department | Care Team | Description | +--------+---------+ + + + | 05/30/ | Office | Otolaryngology | Gloria, | Odynophagia (Primary | | 2017 | Visit | Laryngology Services | Lucy Zaidi PA-C | Dx); Globus | | | | at [facility] [address] | [address] | sensation; Laryngeal | | | | [address] [place], | [place], [place] | hyperfunction; | | | | [place] [address] | [address] | Muscle tension | | | | [phone] | [phone] | dysphonia; | | | | | [...] 05/30/2016 11:00 AM PDTThank you for choosing [facility] Department of Otolaryngology for your health care needs. If you need to speak to an ENT physician after normal business hours, please call [phone] and ask to have the ENT phys richa communication clerk paged. 1. Get the CT scan of your neck. You will likely need to schedule this in 2 weeks when you come back to [place] 2. I will call you with the [...] instruments: Description #1: laryngoscope Serial ID #1: [id number] Lucy Martino PA-C - 05/30/2016 11:00 AM PDTFormatting of this note might be different from the origina l. PATIENT NAME:Aniket Kendall MR#: [id number] : 1980 REFERRING PROVIDER: TAMEKA Yin [facility] [address] [place] [address] PRIMARY CARE PROVIDER: TAMEKA Mistry CLINIC: [facility] REASON FOR FOLLOW-UP: Chief Complaint Patient presents with Follow-up visit HPI: Aniket Kendall is a 35 y.o. 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 They are unclear what the headaches are due to. She says she has multiple lesions found previously on MRI which [facility]. She has undergone 5 prior [...] when she comes given the distance from [place]. 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 Acid suppression was recommended, but she already takes 20mg omep razole twice daily and her rivet thrower who manages her chronic kidney diease has [...] with contrast. This will assess ruling out akiak's syndrome and a lesion. I will call [...] + +--------+ + + + | [place] | Routin | 05/31/2016 | Odynophagia | [...] Note | + + | Service Account, [employer] In Interface - 06/27/2016 4:09 PM [...]
--- OUTSIDE RECORDS SUMMARY | ~2018-12-26 | XMS | Encounter Summary ---
Demographics + + + | Address | [address] | | | [place] [address] | + + + | Home Phone [...] Team Providers + +------+ + | Care Fire Lieutenant Name | Role | Phone | + +------+ + | Melvina TalleyP | PCP | | + +------+ + Encounter Details +--------+ + + + + | Date | Type | Department | Care Team | Description | +--------+ + + + + | 06/27/ | MyChart | [place] [facility] | Luis E Manriquez I, | I need your | | 2016 | Encounter | Center at [facility] [address] | MD | help...again | | | | [address] | | | | | | Mailcode: [facility] | | | | | | Center for Health | | | | | | and Healing, | | | | | | Building [address], | | | | | | [place], [place] | | | | | | [address] | | | | | | [phone] | | | +--------+ + + + [...]
--- OUTSIDE RECORDS SUMMARY | ~2018-12-26 | XMS | Encounter Summary ---
Demographics + + + | Address | [address] | | | [place] [address] | + + + | Home Phone [...] Team Providers + +------+ + | Care Imaging Scheduler Name | Role | Phone | + +------+ + | Melvina Talley | PCP | | + +------+ + Encounter Details +--------+ + + + + | Date | Type | Department | Care Team | Description | +--------+ + + + + | 03/26/ | Hospital | Diagnostic Imaging | Gloria, | | | 2017 | Encounter | Services at [facility] | Lucy Ohara PA-C | | | | | [address] | [address] | | | | | Cec[address] Christopher Mailcode: | [place], [place] | | | | | [address] [facility] | [address] | | | | | [place], [place] | [phone] | | | | | [address] | | | | | | [phone] | | | +--------+ + + + [...] Note | + + | Service Account, [employer] In Interface - 03/26/2016 12:03 PM PST [...]
--- OUTSIDE RECORDS SUMMARY | ~2018-12-26 | XMS | Encounter Summary ---
Demographics + + + | Address | [address] | | | [place] [address] | + + + | Home Phone | | + + + | Preferred Language | Unknown | + + + | Marital Status | | + + + | Taoist Affiliation | NON | + + + [...] Team Providers + +------+ + | Care Sponge Packer Name | Role | Phone | [...] | 2017 | Encounter | Center at [facility] [address] | MD | | | | | [address] | | | | | | Mailcode: Center | | | | | | [facility] | | | | | | [facility] 2 | | | | | | [place], [place] | | | | | | [address] | | | | | | [phone] | | | +--------+ + + + [...]
--- OUTSIDE RECORDS SUMMARY | ~2018-12-26 | XMS | Encounter Summary ---
Demographics + + + | Address | [address] | | | [place] [address] | + + + | Home Phone | | + + + | Preferred Language | Unknown | + + + | Marital Status | | + + + | Mandaen Affiliation | NON | + + + | Race | White | + + + | Ethnic Group | Not or | + + + Author + + + | Author | [facility] | + + + | Organization | [facility] | + + + | [...] Team Providers + +------+ + | Care Security System Technician Name | Role | Phone | + +------+ + | Melvina TalleyP | PCP | | + +------+ + Encounter Details +--------+ + + + + | Date | Type | Department | Care Team | Description | +--------+ + + + + | 07/31/ | Documentati | [facility] | Haroon Biggs, | | | 2016 | on | Center at [facility] [address] | | | | | [address] | | | | | | Mailcode: CHE | | | | | | [facility] | | | | | | and Healing, | | | | | | Building [address], [address]th | | | | | | Floor [place], [place] | | | | | | [address] | | | | | | [phone] | | | +--------+ + + + [...]
--- OUTSIDE RECORDS SUMMARY | ~2018-12-26 | XMS | Encounter Summary ---
Demographics + + + | Address | [address] | | | [place] [address] | + + + | Home Phone [...] Team Providers + +------+ + | Care Patient Safety Tech Name | Role | Phone | [...] [place] | | | | | | [address] [place], [place] | | | | | | [address] | | | | | | [phone] | | | +--------+ + + + [...]
--- OUTSIDE RECORDS SUMMARY | ~2018-12-26 | XMS | Encounter Summary ---
Demographics + + + | Address | [address] 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 Haroon Biggs M.D., M.P.H. Fellow, [facility] Instructor, Rhinology and Sinus Surgery Department of Otolaryngology/Head and Neck Surgery [email or web address] documented in this encounter Plan of Treatment Not on filedocumented as of this encounter Procedures + +--------+ + + + | Procedure Name | Priori | Date/Time | Associated Diagnosis | Comments | | | ty | | | | + +--------+ + + + | MI NASAL | Routin | 04/07/2015 | Chronic [...]
--- OUTSIDE RECORDS SUMMARY | ~2018-12-26 | XMS | Encounter Summary ---
Demographics + + + | Address | [address] | | | [place] [address] | + + + | Home Phone [...] Team Providers + +------+ + | Care Speech Language Pathologist Assistant Name | Role | Phone | [...] EEG | | 2019 | Encounter | [place] [address] | [address] | | | | | [address] | [place], [place] | | | | | [place] | [address] | | | | | [address] | [phone] | | | | | [phone] | | | +--------+ + + + [...]
--- OUTSIDE RECORDS SUMMARY | ~2018-12-26 | XMS | Encounter Summary ---
Demographics + + + | Address | [address] | | | [place] [address] | + + + | Home Phone [...] Team Providers + +------+ + | Care Carpet Journeyman Name | Role | Phone | + [...] | | | | | | | [facility] [place] | | | | | | | [address] | +--------+--------+ + + + + Encounter Details +--------+---------+ + + + | Date | Type | Department | Care Team | Description | +--------+---------+ + + + | 03/17/ | Office | [place] [facility] | Haroon Biggs, | Chronic ethmoidal | | 2016 | Visit | Center at [facility] [address] | MD,MPH | sinusitis (Primary | | | | [address] | | Dx); Chronic | | | | Mailcode: 5E | | maxillary sinusitis; | | | | [place] for [facility] | | Deviated nasal | | | | and Healing, | | septum | | | | Building 1, 5th | | | | | | Floor [place], [place] | | | | | | [address] | | | | | | [phone] | | | +--------+---------+ + + + [...] Biggs MD,MPH - 03/17/2015 8:02 AM PST [facility] HISTORY: Aniket Kendall is a [...] the meantime. Haroon Biggs M.D., M.P.H. Fellow, [facility] Instructor, Rhinology and Sinus Surgery Department of Otolaryngology/Head and Neck Surgery [email or web address] documented in this encounter Plan of Treatment Not on filedocumented as of this encounter Procedures + +--------+ + + + | Procedure Name | Priori | Date/Time | Associated Diagnosis | Comments | | | ty | | | | + +--------+ + + + | CO NASAL | Routin | 03/17/2015 | Chronic [...]
--- OUTSIDE RECORDS SUMMARY | ~2018-12-26 | XMS | Encounter Summary ---
Demographics + + + | Address | [address] | | | [place] [address] | + + + | Home Phone [...] Team Providers + +------+ + | Care Grinding Machine Operator Name | Role | Phone [...] + + | 03/01/ | Hospital | [facility] | Haroon Biggs, | | | 2015 | Encounter | STAY [address] | [address] [place] | | | | | Vijaya Mailcode: [facility] | | | | | | [facility] | | | | | | Health and [facility], | | | | | | Building 1 | | | | | | [place], [place] | | | | | | [address] | | | | | | [phone] | | | +--------+ + + + [...] may receive a patient satisfaction survey from "[employer]". We sowmya pham appreciate your feedback on [...] + + + + + | [facility] | [address] | [place] [address] | | | PATHOLOGY | [address] [...]
--- OUTSIDE RECORDS SUMMARY | ~2018-12-26 | XMS | Encounter Summary ---
Demographics + + + | Address | [address] | | | [place] [address] | + + + | Home Phone [...] Team Providers + +------+ + | Care Die Sinker Apprentice Name | Role | Phone | + [...] sleep apnea | E, DAYNAC | [place] 1963 | | | | | (adult) | [address] | [address] | | | | | (pediatric) | Ave | E[address]on [address]nel[address] | | | | | Essential | [place], [place] | Rd [place], | | | | | (primary) | [address] | [place] | | | | | hypertension | Phone: | [address] | | | | | Procedures | [phone] | Phone: | | | | | CONSULT TO | Fax: | [phone] | | | | | ADULT SLEEP | [phone] | Fax: | | | | | MEDICINE | | [phone] | | | | | [place] | | | | | | | PATIENT | | | | | | | [place] | | | | | | | [...] | 2017 | Visit | [facility] at [place] | Francesco Latham PA-C | hypertension | | | | [facility] | [address] | (Primary Dx); MOISÉS | | | | [address] | [address] [place], | (obstructive sleep | | | | [address] Mailcode: | [place] [address] | apnea); Obesity (BMI | | | | [address] [place] | [phone] | 30-39.9) | | | | Research [place] | | | | | | [address] [place], [place] | | | | | | [address] | | | | | | [phone] | | | +--------+---------+ + + + [...] supplies, checkup on your order by calling [employer] [address] Kelvin PEÑA Ph. [phone] . Please bring all CPAP equipment to [...] your face or nose (these are usually ehnny led "cushions" or "pillows" and are covered [...] Aniket Lieberman 1980 [address] [place] [address] No relevant phone numbers on file. Insurance Information Payor: [employer] / Plan: [employer] [place] / Product Type: Medic aid / F/O Payor-Plan/Addr Policy # Cert # Phone # 1 [employer]ICA[employer] - [employer]ER E* [id number] [phone] [address] [address] Sub Name: ANIKET LIEBERMAN Rel to Pt: Self Diagnosis: Obstructive Sleep Apnea (ICD-10: G47.33) Length of need: Lifetime (99 mo) 1. Provide new machine with settings Auto-CPAP set to pressure Minimum = 5 and Maximum = 15 cm H2O with heated humidification [E0562] and wireless modem[A9279]; assign [facility] Sleep Pro gram as patient s provider [...] Consult: 06/27/16 Referring Provider: Lucy Castro PA-C [address] [place] [address] Primary Care Provider: TAMEKA Mistry [facility] [address] [facility] [address] [facility] [address] Assessment: Aniket Lieberman is a 35 y.o. [...] of water. -Orders sent to DME in [place] (lives in [place], [place]) -Discussed 90d compliance window during which [...] Lunesta, Belsomra. She scores 5/24 on the [place] Sleepiness Scale. She states that her weight [...] Francesco Romano PA-C SLEEP DISORDER MEDICINE AT [facility] 13TH FLOOR [address] [place] [address] Mailcode: [address] [place] [address] documented in this encounter Plan [...]
--- OUTSIDE RECORDS SUMMARY | ~2018-12-26 | XMS | Encounter Summary ---
Demographics + + + | Address | [address] | | | [place] [address] | + + + | Home Phone [...] Providers + +------+ + | Care Hvac Estimator Name | Role | Phone | + [...] | | | | | sinusitis | [address] | and Healing, | | | | | Chronic | | Building 1, | | | | | frontal | | 3rd Floor | | | | | sinusitis | | [place], [place] | | | | | Chronic | | [address] | | | | | sphenoidal | | Phone: | | | | | sinusitis | | [phone] | | | | | Procedures | | Fax: | | | | | CT SINUS WO | | [phone] | | | | | CONTRAST | | | | | | | ROUTINE | | | | | | | (LANDMARX | | | | | | | PROTOCOL) | | | | | | | AL CT | | | | | | [...] | | | | | maxillary | [place], [place] | for Health | | | | | sinusitis | [address] | and Healing, | | | | | Chronic | | Building 1, | | | | | frontal | | 3rd Floor | | | | | sinusitis | | [place], [place] | | | | | Chronic | | [address] | | | | | sphenoidal | | Phone: | | | | | sinusitis | | [phone] | | | | | Procedures | | Fax: | | | | | CT SINUS WO | | [phone] | | | | | CONTRAST | | | | | | | ROUTINE | | | | | | | (LANDMARX | | | | | | | PROTOCOL) | | | | | | | AL CT | | | | | | [...] | 2014 | Encounter | Lab at [facility] [address] | | | | | | [address] Mailcode: | | | | | | [facility] | | | | | | Health and Healing, | | | | | | [place] [address], [facility] | | | | | | Floor [place], [place] | | | | | | [address] | | | | | | [phone] | | | +--------+ + + + [...] | + +---------+ + + | [place] DEPARTMENT OF | | | | | [...]
--- OUTSIDE RECORDS SUMMARY | ~2018-12-26 | XMS | Encounter Summary ---
Demographics + + + | Address | [address] | | | [place] [address] | + + + | Home Phone [...] Team Providers + +------+ + | Care Crab Steamer Name | Role | Phone | + +------+ + | Melvina Talley | PCP | | + +------+ + Encounter Details +--------+ + + + + | Date | Type | Department | Care Team | Description | +--------+ + + + + | 03/14/ | MyChart | Neurology at | Keon Gerber, | RE:Labs | | 2019 | Encounter | [facility] & | MD [address] | | | | | [address] | [place], [place] | | | | | [address] Mailcode: | [address] | | | | | [address] | [phone] | | | | | Health and Healing, | | | | | | [facility] | | | | | | [place], [place] | | | | | | [address] | | | | | | [phone] | | | +--------+ + + + [...]
--- OUTSIDE RECORDS SUMMARY | ~2018-12-26 | XMS | Encounter Summary ---
Demographics + + + | Address | [address] 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 | | | | | somatoform | [...] Visit | Center for Voice and | [facility]-CRIMINALIST TECHNICIAN [address] | | | | | Swallowing at [facility] | [address] | | | | | [address] | [facility] [place] | | | | | Mailcode: CH15E | [address] | | | | | [facility] | | | | | | and Healing, | | | | | | Building | | | | | | Floor [place], [place] | | | | | | [address] | | | | | | [phone] | | | +--------+ + + + [...] of this encounter Progress Notes Marj Martinez, [facility]-CRIMINALIST TECHNICIAN - 08/16/2016 1:00 PM PDT VOICE THERAPY PROGRESS NOTE CLINIC: [facility] CLINIC DATE: 08/16/16 REFERRING PHYSICIAN: TAMEKA Osborn PRIMARY DIAGNOSIS: 1. Dysphonia 2. Laryngeal hyperfunction 3. Globus sensation TREATMENT DIAGNOSIS: 1. Dysphonia 2. Laryngeal hyperfunction 3. Globus sensation DATE OF ONSET: 02/16/16 START OF CARE: 03/26/16 NUMBER OF SESSIONS: 2 DURATION OF SESSION: 60 min. SUBJECTIVE: Aniket Kendall returns to the [facility] for initiation of [...] and is now down to 6 cigaret saavnnah per day. She does note that she [...] is in town for 2 days from [place], [place]. She will return for one additio nal session of voice therapy tomorrow afternoon. Homework was provided. Marj Martinez MS, CCC-CRIMINALIST TECHNICIAN Speech-Language Pathologist [facility] Department of Otolaryngology/ Head and Neck Surgery Appointments: [phone] documented in thi s encounter Plan of Treatment Not on filedocumented as of this encounter Procedures + +--------+ + + + | Procedure Name | Priori | Date/Time | Associated Diagnosis | Comments | | | ty | | | | + +--------+ + + + | MO SPEECH/HEARING | Routin | 08/16/2016 | Dysphonia [...]
--- OUTSIDE RECORDS SUMMARY | ~2018-12-26 | XMS | Encounter Summary ---
Demographics + + + | Address | [address] | | | [place] [address] | + + + | Home Phone | | + + + | Preferred Language | Unknown | + + + | Marital Status | | + + + | Zoroastrian Affiliation | NON | + + + | Race | White | + + + | Ethnic Group | Not or | + + + Author + + + | Author | [facility] | + + + | Organization | [facility] | + + + | [...] Team Providers + +------+ + | Care Vacuum Cleaner Repairer Name | Role | Phone | + +------+ + | Unknown | PCP | Unavailable | + +------+ + Encounter Details +--------+ + + + + | Date | Type | Department | Care Team | Description | +--------+ + + + + | 12/03/ | Abstract | Digestive Health | Clinic, | | | 2018 | | [place] at [facility] [address] | Gastroenterology | | | | | [address] | | | | | | Mailcode: [place] | | | | | | for Health and | | | | | | Healing, [address] | | | | | | [place], [place] | | | | | | [address] | | | | | | [phone] | | | +--------+ + + + [...]
--- OUTSIDE RECORDS SUMMARY | ~2018-12-26 | XMS | Encounter Summary ---
Demographics + + + | Address | [address] | | | [place] [address] | + + + | Home Phone | | + + + | Preferred Language | Unknown | + + + | Marital Status | | + + + | Restorationism Affiliation | NON | + + + [...] Team Providers + +------+ + | Care Heater Engineer Helper Name | Role | Phone | [...] | | | sleep apnea | E, DANYAC | [address] | | | | | (adult) | [address] | [address] | | | | | (pediatric) | Ave | [address] | | | | | Essential | [place], [place] | Rd [place], | | | | | (primary) | [address] | [place] | | | | | hypertension | Phone: | [phone] | | | | | Procedures | [phone] | Phone: | | | | | CONSULT TO | Fax: | [phone] | | | | | ADULT SLEEP | [phone] | Fax: | | | | | MEDICINE | | [phone] | | | | | NM NEW | | | | | | | PATIENT | | | | | | | LEVEL V [place] | | | | | | | [...] | 2017 | Visit | [facility] | Francesco Latham PA-C | hypertension | | | | [facility] | [address] | (Primary Dx); MOISÉS | | | | [address] | [address] [place], | (obstructive sleep | | | | Ceci Christopher Mailcode: | [place] [address] | apnea); Obesity (BMI | | | | CR[address] | [phone] | 30-39.9) | | | | [facility] [place] | | | | | | [address] [place], [place] | | | | | | [address] | | | | | | [phone] | | | +--------+---------+ + + + [...] supplies, checkup on your order by calling [facility] [address] [facility] #A Kelvin PEÑA Ph. [phone] . Please bring all CPAP equipment to [...] Aniket Lieberman 1980 [address] [place] [address] No relevant phone numbers on file. Insurance Information Payor: COLOR ROOM ATTENDANT MEDICAID / Plan: COLOR ROOM ATTENDANT [place] PLUS / Product Type: Medic aid / F/O Payor-Plan/Addr Policy # Cert # Phone # 1 COLOR ROOM ATTENDANT MEDICAID - COLOR ROOM ATTENDANT E* [id number] [phone] [address] [address] Sub Name: ANIKET LIEBERMAN Rel to Pt: Self Diagnosis: Obstructive Sleep Apnea (ICD-10: G47.33) Length of need: Lifetime (99 mo) 1. Provide new machine with settings Auto-CPAP set to pressure Minimum = 5 and Maximum = 15 cm H2O with heated humidification [E0562] and wireless modem[A9279]; assign [facility] Sleep Pro gram as patient s provider [...] Consult: 06/27/16 Referring Provider: Lucy Castro PA-C [address] [place] [address] Primary Care Provider: TAMEKA Mistry [facility] [address] [facility] [address] [facility] [address] Assessment: Aniket Lieberman is a 35 y.o. [...] of water. -Orders sent to DME in [place] (lives in [place], [place]) -Discussed 90d compliance window during which [...] Lunesta, Belsomra. She scores 5/24 on the Aurora Sleepiness Scale. She states that her weight [...] Francesco Romano PA-C SLEEP DISORDER MEDICINE AT [facility] [address]TH FLO[address] [place] [address] Mailcode: Cr139 [place] [address] documented in this encounter Plan [...]
--- OUTSIDE RECORDS SUMMARY | ~2018-12-26 | XMS | Encounter Summary ---
Demographics + + + | Address | [address] | | | [place] [address] | + + + | Home Phone [...] Team Providers + +------+ + | Care Buncher Operator Name | Role | Phone | + +------+ + | Melvina Talley | PCP | | + +------+ + Encounter Details +--------+ + + + + | Date | Type | Department | Care Team | Description | +--------+ + + + + | 08/05/ | Document-Sc | UNKNOWN DEPARTMENT | Unknown . | | | 2015 | anned | [address] [facility] | | | | | | [address] | | | | | | [place], [place] | | | | | | [address] | | | +--------+ + + + [...]
--- OUTSIDE RECORDS SUMMARY | ~2018-12-26 | XMS | Encounter Summary ---
Demographics + + + | Address | [address] 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 | Ch[address] | | | | | seizures | [address] | [address] | | | | | ([facility]) | [address] | Mailcode: | | | | | Procedures | Rd | [facility] | | | | | CONSULT TO | [place], [place] | for Health | | | | | NEUROLOGY | [address] | and Healing, | | | | | | Phone: | Building 1, | | | | | | [phone] | 8th Floor | | | | | | Fax: | [place], [place] | | | | | | [phone] | [address] | | | | | | | Phone: | | | | | | | [phone] | | | | | | | Fax: | | | | | | | [phone] | +--------+--------+ + + + + Reason [...] + + | 12/09/ | Emergency | [facility] Emergency | Jesus Khan MD | | | 2017 | | Department [address] | [address] | | | | | [address] | [address] | | | | [facility] | [place], [place] | | | | | [place], [place] | [address] | | | | | [address] | [phone] | | | | | [phone] | | | +--------+ + + + [...] MD - 12/09/2017During your visit in the [facility] ED, you had labs and a neurology evaluation. 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 They also want to see tee hatfield in the [facility] Neurology Epilepsy clinic (see contact information). [...] MARQUAM | [address] | [place], [place] | | | ZULEMA POINT OF CARE | [address] | [address] | | | TESTS | | | [...] [facility] | [address] | [place] [address] | | | SERVICES, CORE | PARK [...] | + + + + + | [facility] | [address] | [place] [address] | | | SERVICES, CORE | PARK [...] | | | LABORATORY | | | [place]RAELI | | | SERVICES, | | | [...] | + + + + + | [facility] | [address] | [place] [address] | | | SERVICES, CORE | NATASHA [...] | [facility] | | | GRAVITY | [place] performed by | | LABORATORY | | [...] [facility] | [address] | [place] [address] | | | JONATHAN CHUN | [address] | | | + + + + + ED INFORMATION EXCHANGE (12/09/2017 1:48 PM PDT) + + | Specimen | + + | | + + + + + | Narrative | Performed At | + + + | [id number] This patient has registered at the | COLLECTIVE | | [facility] Emergency Department For more | MEDICAL | | information visit: | TECHNOLOGIES | | [email or web address] | | | [email or web address] Security Events No recent Security Events currently on file | | | ED Care Guidelines There are currently no ED Care Guidelines in | | | MELISAS for this patient. Please check your facility's medical records | | | system. Recent Emergency Department Visit Summary Admit Date | | | Facility City State Type Major Type Diagnoses or Chief Complaint Nov | | | 2017 [facility] [place] Emergency | | | Emergency 10,800. l side pain Dec 02, [address] [facility] 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 | | | E.D. Visit Count (12 mo.) Facility Visits [facility] and | | | [facility] 1 [facility] 1 Total 2 Note: | | | Visits indicate total known visits. PDMP Report Rx Details (6 | | | Mo.) Fill Date Drug Description Qty. Prescriber MED 2017-12-06 | | | ZOLPIDEM TARTRATE 10 MG TABLET 30 MOSHE HUFFP 4 0 | | | 2017-11-29 LORAZEPAM 0.5 MG TABLET 10 VIRIDIANA MCELLIGOTT, DECK CADET 4 0 | | | 2017-11-19 LORAZEPAM 0.5 MG TABLET 10 VIRIDIANA MCELLIGOTT, DECK CADET 4 0 | | | 2017-11-12 OXYCODONE HCL 10 MG TABLET 120 VIRIDIANA MCELLIGOTT, DECK CADET 0 | | | 2017-11-08 ZOLPIDEM TARTRATE 10 MG TABLET 30 VIRIDIANA MCELLIGOTT, DECK CADET 4 0 | | | 2017-10-11 OXYCODONE HCL 10 MG TABLET 120 VIRIDIANA MCELLIGOTT, DECK CADET 0 | | | 2017-10-10 ZOLPIDEM TARTRATE 10 MG TABLET 30 VIRIDIANA MCELLIGOTT, DECK CADET | | | 4 0 2017-09-13 ZOLPIDEM TARTRATE 10 MG TABLET 30 VIRIDIANA MCELLIGOTT, | | | DECK CADET 4 0 2017-09-10 OXYCODONE HCL 10 MG TABLET 120 VIRIDIANA MCELLIGOTT, | | | DECK CADET 0 2017-08-16 ZOLPIDEM TARTRATE 10 MG TABLET 30 VIRIDIANA | | | MCELLIGOTT, DECK CADET 4 0 2017-08-12 OXYCODONE HCL 10 MG TABLET 120 VIRIDIANA | | | MCELLIGOTT, DECK CADET 0 2017-07-17 ZOLPIDEM TARTRATE 10 MG TABLET 30 | | | VIRIDIANA MCELLIGOTT, DECK CADET 4 0 2017-07-12 OXYCODONE HCL 10 MG TABLET 120 | | | VIRIDIANA MCELLIGOTT, DECK CADET 0 2017-06-19 ZOLPIDEM TARTRATE 10 MG TABLET | | | 30 VIRIDIANA MCELLIGOTT, DECK CADET 4 0 2017-06-14 OXYCODONE HCL 10 MG TABLET | | | 120 VIRIDIANA MCELLIGOTT, DECK CADET 0 Rx Summary (12 Mo.) Metric Count [...] for additional | | | information. 2018 [facility] - [facility] | | | [place], [place] - [email or web address] | | + + + + + | Procedure Note | + + | Service Account, Rtf Results Inbound - 12/09/2017 1:50 PM PDT Formatting of this | | note might be different from the original.MELISSA?NOTIFICATION?12/09/2017 13:48?MARJORIE, | | ANIKET Barron? patient has registered at the [facility] | | [place] [facility] For more information visit: | | [email or web address] Security | | EventsNo recent Security Events currently on fileED Care GuidelinesThere are currently | | no ED Care Guidelines in MELISSA for this patient. Please check your facility's medical | | records system.Recent Emergency Department Visit SummaryAdmit Date Facility [facility] State | | Type Major Type Diagnoses or Chief Complaint Dec 09, 2017 [facility] | | [facility] [place] Emergency Emergency 10,800. l side pain Dec 02, 2017 [facility]. | | [place] Emergency Emergency Chondrocostal junction syndrome [Tietze] | | Personal history of nicotine dependence Other intermediate project manager (current) drug therapy | | Hypertensive chronic kidney disease with stage 1 through stage 4 chronic kidney disease, | | or unspecified chronic kidney disease Chronic kidney disease, stage 1 Allergy | | status to penicillin Recent Inpatient Visit SummaryNo recorded inpatient visits. E.D. | | Visit Count (12 mo.)Facility Visits [facility] 1 [facility]. | | [place] [address] Total 2 Note: Visits indicate total known visits. PDMP ReportRx | | Details (6 Mo.)Fill Date Drug Description Qty. 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, INDUSTRIAL ORGANIZATION MANAGER 4 0 2017-11-29 LORAZEPAM 0.5 MG TABLET 10 | | VIRIDIANA MCELLIGOTT, DECK CADET 4 0 2017-11-19 LORAZEPAM 0.5 MG TABLET 10 [facility]NA [facility], DECK CADET 4 | | 0 2017-11-12 OXYCODONE HCL 10 MG TABLET 120 VIRIDIANA [facility], DECK CADET 0 2017-11-08 ZOLPIDEM | | TARTRATE 10 MG TABLET 30 VIRIDIANA MCELLIGOTT, DECK CADET 4 0 2017-10-11 OXYCODONE HCL 10 MG | | TABLET 120 VIRIDIANA [facility], DECK CADET 0 2017-10-10 ZOLPIDEM TARTRATE 10 MG TABLET 30 VIRIDIANA | | MCELLIGOTT, DECK CADET 4 0 2017-09-13 ZOLPIDEM TARTRATE 10 MG TABLET 30 VIRIDIANA [facility], DECK CADET 4 | | 0 2017-09-10 OXYCODONE HCL 10 MG TABLET 120 VIRIDIANA [facility], DECK CADET 0 2017-08-16 ZOLPIDEM | | TARTRATE 10 MG TABLET 30 VIRIDIANA [facility], DECK CADET 4 0 2017-08-12 OXYCODONE HCL 10 MG | | TABLET 120 VIRIDIANA [facility], DECK CADET 0 2017-07-17 ZOLPIDEM TARTRATE 10 MG TABLET 30 VIRIDIANA | | MCELLIGOTT, DECK CADET 4 0 2017-07-12 OXYCODONE HCL 10 MG TABLET 120 [facility], DECK CADET 0 | | 2017-06-19 ZOLPIDEM TARTRATE 10 MG TABLET 30 [facility], DECK CADET 4 0 2017-06-14 | | OXYCODONE HCL 10 MG TABLET 120 [facility], DECK CADET 0 Rx Summary (12 Mo.)Metric Count | [...] for | | additional information. ? 2018 [employer] - [place], | | [place] - [email or web address] | |Rx Details (6 Mo.) | |Fill Date Drug Description Qty. 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, INDUSTRIAL ORGANIZATION MANAGER 4 0 | |2017-11-29 LORAZEPAM 0.5 MG TABLET 10 VIRIDIANA MCELLIGOTT, DECK CADET 4 0 | |2017-11-19 LORAZEPAM 0.5 MG TABLET 10 VIRIDIANA MCELLIGOTT, DECK CADET 4 0 | |2017-11-12 OXYCODONE HCL 10 MG TABLET 120 VIRIDIANA [facility], DECK CADET 0 | |2017-11-08 ZOLPIDEM TARTRATE 10 MG TABLET 30 VIRIDIANA MCELLIGOTT, DECK CADET 4 0 | |2017-10-11 OXYCODONE HCL 10 MG TABLET 120 VIRIDIANA [facility], DECK CADET 0 | |2017-10-10 ZOLPIDEM TARTRATE 10 MG TABLET 30 VIRIDIANA MCELLIGOTT, DECK CADET 4 0 | |2017-09-13 ZOLPIDEM TARTRATE 10 MG TABLET 30 VIRIDIANA MCELLIGOTT, DECK CADET 4 0 | |2017-09-10 OXYCODONE HCL 10 MG TABLET 120 VIRIDIANA MCELLIGOTT, DECK CADET 0 | |2017-08-16 ZOLPIDEM TARTRATE 10 MG TABLET 30 VIRIDIANA MCELLIGOTT, DECK CADET 4 0 | |2017-08-12 OXYCODONE HCL 10 MG TABLET 120 VIRIDIANA MCELLIGOTT, DECK CADET 0 | |2017-07-17 ZOLPIDEM TARTRATE 10 MG TABLET 30 VIRIDIANA MCELLIGOTT, DECK CADET 4 0 | |2017-07-12 OXYCODONE HCL 10 MG TABLET 120 VIRIDIANA MCELLIGOTT, DECK CADET 0 | |2017-06-19 ZOLPIDEM TARTRATE 10 MG TABLET 30 VIRIDIANA MCELLIGOTT, DECK CADET 4 0 | |2017-06-14 OXYCODONE HCL 10 MG TABLET 120 VIRIDIANA MCELLIGOTT, DECK CADET 0 | | | |Rx Summary (12 [...] facilities for additional information. | |? 2018 [employer] - [place], [place] - [email or web address] | + + + + + + + | Performing | Address | City/State/Zipcode | Phone Number | | Organization | | | | + + + + + | [facility] | [address], | [place], [place] | [phone] | | TECHNOLOGIES | [address] | [address] | | + + + + + [...]
--- OUTSIDE RECORDS SUMMARY | ~2018-12-26 | XMS | Encounter Summary ---
Demographics + + + | Address | [address] | | | [place] [address] | + + + | Home Phone [...] Team Providers + +------+ + | Care Behavioral Therapist Name | Role | Phone | [...] as of this encounter Progress Notes Interface, Library Manager In - 02/23/2006 1:01 AM PSTCLINIC DATE: [...] took her to the emergency room in [place]. They found an unremarkable examination and discharged [...] had a brain MRI scan completed in [place], which was read as showing right hippocampal [...] now . She is living alone in [place]. Her father and stepmother live nearby and are supportive. They actually drove her to the appointment today. She smokes a pack of cigarettes per day. She drinks alcohol only very rarely. She denies any other recreational drug use (she did have a negative tox screen on December 18 in the emergency room in [place]). PHYSICAL EXAMINATION: In general, this is a [...] are intact in all four extremities. COORDINATION: Cfixln-bl-gkif and zmsu-sg-izqn are within normal limits. Casual gait, tandem gait, heel walk, and toe walk are also within normal limits. LABORATORY DATA: The serologic findings are described above. A brain MRI scan completed in [place] is available for review. It is of [...] issues are sorted out. Isaac Long M.D. Salon Professional, Neurology RODGER/leticia cc: GARRY WAY MD [address] [place] [id number] signed by Interface, Library Manager In at 02/23/2006 1:01 AM PSTdocumented in this encounter Plan of Treatment Not on filedocumented as of this encounter Visit Diagnoses Not on filedocumented in this encounter
--- OUTSIDE RECORDS SUMMARY | ~2018-12-26 | XMS | Encounter Summary ---
Demographics + + + | Address | [address] | | | [place] [address] | + + + | Home Phone [...] Providers + +------+ + | Care Bag Grader Name | Role | Phone | + [...] | | | | | | | [place], [place] | | | | | | | [address] | +--------+--------+ + + + + Encounter Details +--------+---------+ + + + | Date | Type | Department | Care Team | Description | +--------+---------+ + + + | 07/26/ | Office | [facility] | Carmelita Craig, | Chronic ethmoidal | | 2015 | Visit | Center at [facility] [address] | PA-C [address] | sinusitis (Primary | | | | [address] | [address] [place], [place] | Dx); Chronic | | | | Mailcode: CH5E | [address] | maxillary sinusitis | | | | Center for [facility] | [phone] | | | | | and Healing, | | | | | | Building [address], | | | | | | [place], [place] | | | | | | [address] | | | | | | [phone] | | | +--------+---------+ + + + [...] Craig PA-C - 07/27/2015 1:33 PM PDT [facility] HPI: Aniket Kendall is a 35 y.o. female who presents to the [facility] for fol low up of [...] in nose two times daily. Mix with FClubmed sinus irrigati ons. Irrigate BID. Sent to [facility] cyclobenzaprine 10 mg oral tablet Take [...] | + +--------+ + + + | [place] NASAL | Routin | 07/27/2015 | Chronic [...]
--- OUTSIDE RECORDS SUMMARY | ~2018-12-26 | XMS | Encounter Summary ---
Demographics + + + | Address | [address] | | | [place] [address] | + + + | Home Phone [...] Team Providers + +------+ + | Care Rubber Curer Name | Role | Phone | + [...] Mailcode: | | | | | | [address] | | | | | | Health and Healing, | | | | | | Building | | | | | | Floor [place], [place] | | | | | | [address] | | | | | | [phone] | | | +--------+ + + + [...]
--- OUTSIDE RECORDS SUMMARY | ~2018-12-26 | XMS | Encounter Summary ---
Demographics + + + | Address | [address] | | | [place] [address] | + + + | Home Phone [...] Providers + +------+ + | Care Manager Intranet Name | Role | Phone | + [...] Closed | | Speech | Diagnoses | lGoria, | Ent Speech | | | | Therapy | Dysphagia, | Lucy | [address] | | | | | unspecified | DAVEY Ohara | [address] | | | | | type | [address] | | | | | Procedures | Ave | Mailcode: | | | | | CONSULT TO | [place], [place] | [address] | | | | | ENT SPEECH | [address] | Physician's | | | | | THERAPY | Phone: | Pavilion | | | | | | [phone] | [place], [place] | | | | | | Fax: | [address] | | | | | | [phone] | Phone: | | | | | | | [phone] | | | | | | | Fax: | | | | | | | [phone] | +--------+--------+ + + + + Encounter Details +--------+ + + + + | Date | Type | Department | Care Team | Description | +--------+ + + + + | 10/25/ | Digital Retoucher | Otolaryngology | Zochowski, | Dysphagia, | | 2015 | | Laryngology Services | Lucy Ohara PA-C | unspecified type | | | | at [facility] [address] | [address] | (Primary Dx) | | | | [address] [place], | [facility] [place] | | | | | [place] [address] | [address] | | | | | [phone] | [phone] | | | | | | | [...]
--- OUTSIDE RECORDS SUMMARY | ~2018-12-26 | XMS | Encounter Summary ---
Demographics + + + | Address | [address] | | | [place] [address] | + + + | Home Phone | | + + + | Preferred Language | Unknown | + + + | Marital Status | | + + + | Gnosticist Affiliation | NON | + + + [...] Team Providers + +------+ + | Care Farmworker Rice Name | Role | Phone | + [...] PA-C | | | | | at [facility] [address] | [address] | | | | | [address] [place], | [place], [place] | | | | | [place] [address] | [address] | | | | | [phone] | [phone] | | | | | | | [...]
--- OUTSIDE RECORDS SUMMARY | ~2018-12-26 | XMS | Encounter Summary ---
Demographics + + + | Address | [address] | | | [place] [address] | + + + | Home Phone [...] Team Providers + +------+ + | Care Overhauler Bus Truck Name | Role | Phone | + [...] + + | 05/09/ | Telephone | [place] [facility] | Haroon Biggs, | Discussion (Patient | | 2015 | | Center at [facility] [address] | ,MPH | returning Dr. Biggs's | | | | [address] | | Mychart request to | | | | Mailcode: CH5E | | call clinic if still | | | | [place] [facility] | | experienceing | | | | and Healing, | | symptoms. Confirmed | | | | | | that phone number | | | | [place], [place] | | was still current | | | | [address] | | and should go | | | | [phone] | | through when calling | | [...]
--- OUTSIDE RECORDS SUMMARY | ~2018-12-26 | XMS | Encounter Summary ---
Demographics + + + | Address | [address] | | | [place] [address] | + + + | Home Phone [...] Team Providers + +------+ + | Care Youth Nutritional Monitor Name | Role | Phone | + [...] Maynor | | | | | | HOUSE MANAGER [address] | | | | | | [address] | [address] [place], | | | | | | [address] | [place] | | | | | | [place], | [address] | | | | | | [place] | | | | | | | [address] | | | | | | | Phone: | | | | | | | [phone] | | | | | | | Fax: | | | | | | | [phone] | | +--------+--------+ + + + + [...] | not intractable | | | | [facility] | | (Primary Dx); | | | | Health and Healing, | | Abnormal brain MRI; | | | | | | Myoclonus; Memory | | | | Floor [facility] [place] | | changes | | | | [address] | | | | | | [phone] | | | +--------+---------+ + + + [...] old right-handed who is being seen at [facility] for evaluation of [...] MRI that were bot h done at [facility]. We do not have records of the [...] during sleep. Labs from Dr Hanna at [facility]: TSH TSH 1.72 CERULOPLASMIN 50 COPPER, SERUM COPPER 224 (mildly elevated) WBC 7.9 RBC 4.77 HGB 13.7 HCT 42.2 MCV 88.5 MCH 28.7 MCHC 32.4 RDW SD 38.9 PLT 277 MPV 8.1 DIFF TYPE AUTOMATED NEUTROPHILS 51.9 LYMPHOCYTES 38.7 MONOCYTES 4.9 EOSINOPHILS 4.2 BASOPHILS 0.3 Most recent MRI done at [facility]. PMH: HTN (hypertension) GERD (gastroesophageal reflux [...] file Social History Narrative She lives in [place] with her boyfriend and her two kids. 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 Family History: sister with similar symptoms. Being [...] have requested the actual image s from [facility] but have not received them yet. The description on the report sounds like non-specific white matter lesions which are not consistent with MS. Diagnosis: - migraine without aura, not intractable, without status migrainosus - abnormal brain MRI - possible myoclonus - memory changes Assessment: Aniket Kendall is a 34 year old right-handed who is being seen at [facility] for evaluation of abnormal brain [...] was reassured by her normal cognitive exam (CaC A ). Ultimately many of her symptoms [...] is a product called Preventa migraine from [employer] that contains all of the above supplements [...] diagnoses and treatment options. Gallo Hauser MD Nursing Program Coordinator Department of Neurology documented in this en [...]
--- OUTSIDE RECORDS SUMMARY | ~2018-12-26 | XMS | Encounter Summary ---
Demographics + + + | Address | [address] 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 | Fax: | | | | | | | [phone] | | +--------+--------+ + + + + Encounter Details +--------+---------+ + + + | Date | Type | Department | Care Team | Description | +--------+---------+ + + + | 08/17/ | Office | Otolaryngology | Gloria, | Globus sensation | | 2017 | Visit | Laryngology Services | Lucy Ohara PA-C | (Primary Dx); | | | | at [facility] [address] | [address] | Laryngeal | | | | [address] [place], | [place], [place] | hyperfunction; | | | | [place] [address] | [address] | Dysphonia; | | | | [phone] | [phone] | Odynophagia; Serous | | | | [...] 08/17/2016 2:00 PM PDTThank you for choosing [facility] Department of Otolaryngology for your health care needs. If you need to speak to an ENT physician after normal business hours, please call [phone] and ask to have the ENT phys ician electronic repair troubleshooter paged. documented in this encounter Progress Notes Guadalupe Faulkner MA - 08/17/2016 2:00 PM PDTlaryngoscopy procedure was performed using the following instruments: Description #1: laryngoscope Serial ID #1: [id number] Lucy Martino PA-C - 08/17/2016 2:00 PM PDTFormatting of this note might be different from the origina l. PATIENT NAME:Aniket Kendall [facility] MR#: [id number] : 1980 REFERRING PROVIDER: TAMEKA Yin [facility] [address] [place] [address] PRIMARY CARE PROVIDER: TAMEKA Mistry CLINIC: [facility] REASON FOR FOLLOW-UP: Chief Complaint Patient presents with Follow-up visit HPI: Aniket Kendall is a 36 y.o. female who was last seen at the [facility] Swallow[facility] for sensation of a lump in her throat, hoarseness and throat pain upo n swallowing. It was recommended that she undergo back to back sessions of voice therapy gi shady the distance she has to drive from [place]. She returns today noting that she feels [...] her CPAP machine due to trouble with [employer] companies. She has yet to get it [...] otalgia, odynophagia or hemoptysis. Cathleen Castro PA-C [facility] for Voice and Swallowing Department of Otolaryngology and Head and Neck Surgery documented i n this encounter Plan of Treatment Not on filedocumented as of this encounter Procedures + +--------+ + + + | Procedure Name | Priori | Date/Time | Associated Diagnosis | Comments | | | ty | | | | + +--------+ + + + | NM | Routin | 08/17/2016 | Globus sensation [...]
--- OUTSIDE RECORDS SUMMARY | ~2018-12-26 | XMS | Encounter Summary ---
Demographics + + + | Address | [address] | | | [place] [address] | + + + | Home Phone [...] Team Providers + +------+ + | Care Associate Professor Of Management Name | Role | Phone | + +------+ + | Melvina TalleyP | PCP | | + +------+ + Encounter Details +--------+ + + + + | Date | Type | Department | Care Team | Description | +--------+ + + + + | 04/11/ | Inside | ANSHU JONES at [facility] | Gloria, | | | 2017 | Referral | [facility] [address] | Lucy Ohara PA-C | | | | Order | [address] Mailcode: | [address] | | | | | [facility] for | [place], [place] | | | | | Health and Healing, | [address] | | | | | [place] [address] | [phone] | | | | | [facility] [place] | | | | | | [address] | | | | | | [phone] | | | +--------+ + + + [...] + | MRN: | [facility] | | [id number] Date: 04/19/2016Patient Name: Order #: [id number] | ENDOSCOPY | | of : 1980CSN: [id number]: [facility] 3Procedure: | | | Upper GI endoscopyIndications: Heartburn, Globus | | | sensationProviders: KAYLEEN MCCORMICK MD (Doctor), KARTIK | | | SHERRI STACY (Nurse), CLAUDIA CARTER, | | | Rehabilitation Counsellor (Rehabilitation Counsellor)Referring MD: LUCY Serrano | | | ANGEL [...] | | | The Olympus [id number] Endoscope #[id number] | | | was introduced through the [...]
--- OUTSIDE RECORDS SUMMARY | ~2018-12-26 | XMS | Encounter Summary ---
Demographics + + + | Address | [address] | | | [place] [address] | + + + | Home Phone | | + + + | Preferred Language | Unknown | + + + | Marital Status | | + + + | Islam Affiliation | NON | + + + | Race | White | + + + | Ethnic Group | Not or | + + + Author + + + | Author | [facility] | + + + | Organization | [facility] | + + + | [...] Team Providers + +------+ + | Care Experimental Technician Name | Role | Phone | [...] evaluation | | 2016 | cheduled | [facility] at | | | | | | MPV | | | | | | Stay [address] [facility] [address] | | | | | | E[address]on [address]nel[address] | | | | | | Mailcode: UHN65 | | | | | | [place] | | | | | | [address] | | | | | | [address] | | | | | | [phone] | | | +--------+ + + + [...] perfume, lotions or powder. Remove any nail serbian from at least one fingernail. Do not [...] of your procedure. Surgery Check in Locations [facility] Day Stay Center for Health and Healing, fourth floor Surgery Check in Time: Someone from your surgeon's office or [facility] will provide you with information [...] t is after office hours, call the [facility] extruder operator vertical at [phone] and ask them to page your do ctor. documented in this encounter Plan of Treatment Not on filedocumented as of this encounter Visit Diagnoses Not on filedocumented in this encounter"
--- OUTSIDE RECORDS SUMMARY | ~2018-12-26 | XMS | Encounter Summary ---
Demographics + + + | Address | [address] | | | [place] [address] | + + + | Home Phone [...] Team Providers + +------+ + | Care Laboratory Chief Name | Role | Phone | [...] | | Procedures | DAVEY Ohara | [address] | | | | | CT NECK | [address] | [address] | | | | | SOFT TISSUE | Ave | Mailcode: | | | | | [address] | [place], [place] | [address] [facility] | | | | | [address] NECK | [address] | Hospital | | | | | TISSUE | Phone: | [place], [place] | | | | | CONTRAST | [phone] | [address] | | | | | | Fax: | Phone: | | | | | | [phone] | [phone] | | | | | | | Fax: | | | | | | | [phone] | +--------+--------+ + + + + Reason for Visit Diagnostic Testing (Routine) +--------+--------+ + + + + | Status | Reason | Specialty | Diagnoses / | Referred By | Referred To | | | | | Procedures | Contact | Contact | +--------+--------+ + + + + | Closed | | Radiology | Diagnoses | Zochomonicaki, | Rad Ct Scan | | | | | Odynophagia | Lucy | [facility] [address] | | | | | Procedures | EDAVEY | [address] | | | | | CT NECK | [address] | | | | | SOFT TISSUE | Ave | Mailcode: | | | | | [address] CONTRAST | [place], [place] | [address] [facility] | | | | | [address] CT NECK | [address] | Hospital | | | | | TISSUE | Phone: | [place], [place] | | | | | CONTRAST | [phone] | [address] | | | | | | Fax: | Phone: | | | | | | [phone] | [phone] | | | | | | | Fax: | | | | | | | [phone] | +--------+--------+ + + + + Encounter Details +--------+ + + + + | Date | Type | Department | Care Team | Description | +--------+ + + + + | 06/27/ | Hospital | Diagnostic Imaging | Gloria, | | | 2017 | Encounter | Services at [facility] | Lucy Ohara PA-C | | | | | [address] | [address] | | | | | [address] Mailcode: | [place], [place] | | | | | [address] [facility] | [address] | | | | | [place], [place] | [phone] | | | | | [address] | | | | | | [phone] | | | +--------+ + + + [...] | + +--------+ + + + | CREATININE, POC | Routin | 06/27/2016 | Odynophagia | [...] | | | + +---------+ + + CREATININE, POC (06/27/2016 3:20 PM PDT) + +-------+ [...] + | ANSHU KOTHARI | [address] | [place], [place] | | | [address]Y [address] OF [facility] | [address] | [address] | | | TESTS | | | [...]
--- OUTSIDE RECORDS SUMMARY | ~2018-12-26 | XMS | Encounter Summary ---
Demographics + + + | Address | [address] | | | [place] [address] | + + + | Home Phone [...] Team Providers + +------+ + | Care Assembler Musical Equipment Name | Role | Phone | + +------+ + | Melvina TalleyP | PCP | | + +------+ + Encounter Details +--------+ + + + + | Date | Type | Department | Care Team | Description | +--------+ + + + + | 05/08/ | MyChart | [place] [facility] | Haroon Biggs, | RE: Bad smell in my | | 2016 | Encounter | Center at [facility] [address] | MDMP[address] | nose | | | | [address] | | | | | | Mailcode: CH5E | | | | | | [facility] | | | | | | and Imelda, | | | | | | Building , | | | | | | [place], [place] | | | | | | [address] | | | | | | [phone] | | | +--------+ + + + [...]
--- OUTSIDE RECORDS SUMMARY | ~2018-12-26 | XMS | Encounter Summary ---
Demographics + + + | Address | [address] | | | [place] [address] | + + + | Home Phone [...] Team Providers + +------+ + | Care Retort Feeder Ground Bone Name | Role | Phone | + [...] as of this encounter Progress Notes Interface, Military Cook In - 02/11/2006 2:31 AM PSTCLINIC DATE: 05/31/1998 GENERAL NEUROLOGY CLINIC SUBJECTIVE: Ms. Kendall returns for followup of her migraines. I last saw her on February 22. She had an MRI completed in [place] which was suggestive of hippocampal sclerosis, but followup MRI with temporal lobe cuts here at [facility] was negative. She also had a negative [...] WAY MD [address] [place] [id number] signed by Interface, Military Cook In at 02/11/2006 2:31 AM PSTdocumented in this encounter Plan of Treatment Not on filedocumented as of this encounter Visit Diagnoses Not on filedocumented in this encounter"
--- OUTSIDE RECORDS SUMMARY | ~2018-12-26 | XMS | Encounter Summary ---
Demographics + + + | Address | [address] | | | [place] [address] | + + + | Home Phone [...] Team Providers + +------+ + | Care Pre Press Proofer Name | Role | Phone | + +------+ + | Melvina Talley | PCP | | + +------+ + Encounter Details +--------+ + + + + | Date | Type | Department | Care Team | Description | +--------+ + + + + | 03/01/ | Pharmacy | [facility] | | | | 2015 | Visit | [facility] | | | | | | [address] | | | | | | Mailcode: [place] | | | | | | for Health and | | | | | | Healing, [address] | | | | | | [place], [place] | | | | | | [address] | | | | | | [phone] | | | +--------+ + + + [...]
--- OUTSIDE RECORDS SUMMARY | ~2018-12-26 | XMS | Encounter Summary ---
Demographics + + + | Address | [address] | | | [place] [address] | + + + | Home Phone [...] Team Providers + +------+ + | Care Limnologist Name | Role | Phone | + [...] | DAVEY Latham | [address] [facility] | | | | | [phone]) | [address] | [address] | | | | | Essential | [facility] | Mailcode: | | | | | hypertension | Rd | [address] | | | | | Procedures | [place], [place] | [place], [place] | | | | | SPLIT | [address] | [address] | | | | | NIGHT PSG | Phone: | Phone: | | | | | [place] | [phone] | [phone] | | | | | POLYSOMNOGRA | Fax: | Fax: | | | | | PHY W/CPAP | [phone] | [phone] | +--------+--------+ + + + + Encounter Details +--------+ + + + + | Date | Type | Department | Care Team | Description | +--------+ + + + + | 03/27/ | Quality Consultant | Sleep Disorder | Rosalina, | Snoring (Primary | | 2017 | | [facility] at [place] | Francesco Latham PA-C | Dx); Obesity (BMI | | | | [facility] | [address] | 30-39.9); Essential | | | | [address] | [address] [place], | hypertension | | | | [facility] Mailcode: | [place] [address] | | | | | [address] [place] | [phone] | | | | | [facility] | | | | | | [address] [place], [place] | | | | | | [address] | | | | | | [phone] | | | +--------+ + + + [...] | | + +---------+ + + | [facility] | | | | | SLEEP STUDIES | | | | + +---------+ + + | [facility] | | [place], [place] | | | SLEEP STUDIES | | [...]
--- OUTSIDE RECORDS SUMMARY | ~2018-12-26 | XMS | Encounter Summary ---
Demographics + + + | Address | [address] | | | [place] [address] | + + + | Home Phone [...] Team Providers + +------+ + | Care Fuel Oil Clerk Name | Role | Phone | [...] | | | | CONSULT TO | [place], [place] | [address] | | | | | ENT SPEECH | [address] | Physician's | | | | | THERAPY | Phone: | Pavilion | | | | | | [phone] | [place], [place] | | | | | | Fax: | [address] | | | | | | [phone] | Phone: | | | | | | | [phone] | | | | | | | Fax: | | | | | | | [phone] | +--------+--------+ + + + + Encounter Details +--------+---------+ + + + | Date | Type | Department | Care Team | Description | +--------+---------+ + + + | 03/26/ | Office | Otolaryngology [address] | Latha Vasquez | Dysphagia, | | 2017 | Visit | Center for Voice and | | unspecified type | | | | Swallowing at [facility] | | (Primary Dx); | | | | [address] | | Laryngeal | | | | Mailcode: CH15E | | hyperfunction; | | | | [place] for [facility] | | Dysphonia; Globus | | | | and Healing, | | sensation | | | | Building | | | | | | Floor [place], [place] | | | | | | [address] | | | | | | [phone] | | | +--------+---------+ + + + [...] Vasquez - 03/26/2016 1:00 PM PST Clinic: [facility] Referring Physician: TAMEKA Yin [facility] [address] [facility] [address] [place] [address] PCP: TAMEKA Mistry Medical Diagnosis: 1. Dysphagia, [...] REFERRAL: Aniket Kendall was referred to the [facility] for Voice and Swallowing by Dr. [...] with Cathleen Castro PA-C. Please refer to ca s report for details regarding the medical [...] with it if it is covered by [employer] kianna. Latha Vasquez MA, CF-INDUSTRIAL SEWER Speech-Language Pathology Fellow [facility] Dept. of Otolaryngology, [address] [facility] [place] [address] Pager: [phone] signed by Latha Vasquez at 04/01/2016 5:12 PM PSTdocumented in this encounter Plan of Treatment Not on filedocumented as of this encounter Procedures + +--------+ + + + | Procedure Name | Priori | Date/Time | Associated Diagnosis | Comments | | | ty | | | | + +--------+ + + + | [place] | Routin | 04/01/2016 | Dysphagia, | | | LARYNGOSCOPY,FLEX/RI | e | 5:12 PM | unspecified type | | | GID+STROBOSCOPY | | PST | Laryngeal | | | | | | hyperfunction | | | | | | Dysphonia Globus | | | | | | sensation | | + +--------+ + + + | [facility] | Routin | 04/01/2016 | [...]
--- OUTSIDE RECORDS SUMMARY | ~2018-12-26 | XMS | Encounter Summary ---
Demographics + + + | Address | [address] | | | [place] [address] | + + + | Home Phone [...] Providers + +------+ + | Care Government Teacher Name | Role | Phone | + +------+ + | Melvina TalleyP | PCP | | + +------+ + Encounter Details +--------+ + + + + | Date | Type | Department | Care Team | Description | +--------+ + + + + | 08/23/ | MyChart | [place] [facility] | Carmelita Craig, | RE: Been using | | 2016 | Encounter | Center at [facility] [address] | PA-C [address] | Zoltan, not better | | | | [address] | Ave [place], [place] | | | | | Mailcode: [place]ET[place]Lev | [address] | | | | | [facility] | [phone] | | | | | and [address], | | | | | | Building [address], 5th | | | | | | Floor [place], [place] | | | | | | [address] | | | | | | [phone] | | | +--------+ + + + [...]
--- OUTSIDE RECORDS SUMMARY | ~2018-12-26 | XMS | Encounter Summary ---
Demographics + + + | Address | [address] 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 Haroon Biggs M.D., M.P.H. Fellow, [facility] Instructor, Rhinology and Sinus Surgery Department of Otolaryngology/Head and Neck Surgery [email or web address] documented in this encounter Plan of Treatment Not on filedocumented as of this encounter Procedures + +--------+ + + + | Procedure Name | Priori | Date/Time | Associated Diagnosis | Comments | | | ty | | | | + +--------+ + + + | [place] NASAL | Routin | 03/17/2015 | Chronic [...]
--- OUTSIDE RECORDS SUMMARY | ~2018-12-26 | XMS | Encounter Summary ---
Demographics + + + | Address | [address] | | | [place] [address] | + + + | Home Phone [...] Team Providers + +------+ + | Care Pharmaceutical Officer Name | Role | Phone | + +------+ + | Melvina TalleyP | PCP | | + +------+ + Encounter Details +--------+ + + + + | Date | Type | Department | Care Team | Description | +--------+ + + + + | 05/23/ | MyChart | [facility] | Agustin Skelton | New problem | | 2016 | Encounter | Center at [facility] [address] | MD Ney | | | | | [address] | | | | | | Mailcode: JAIME | | | | | | [facility] | | | | | | and Healing, | | | | | | Building , | | | | | | Floor [place], [place] | | | | | | [address] | | | | | | [phone] | | | +--------+ + + + [...]
--- OUTSIDE RECORDS SUMMARY | ~2018-12-26 | XMS | Encounter Summary ---
Demographics + + + | Address | [address] | | | [place] [address] | + + + | Home Phone [...] Providers + +------+ + | Care Director Business Development Name | Role | Phone | + [...] + + | 04/19/ | Hospital | [facility] GI PROCEDURE | Guzman Mccormick, | | | 2017 | Encounter | [address] | | | | | | Vijaya Mailcode: [facility] | | | | | | [facility] | | | | | | Health and Healing, | | | | | | Building 1 | | | | | | [place], [place] | | | | | | [address] | | | | | | [phone] | | | +--------+ + + + [...] Discharge Instructions Instructions Kartik Blackburn RN - 04/19/2016[facility] Instructions after EGD (Upper Endoscopy ) You [...] hours or on weekends and holiday Hospital Accounting Representative toll free [phone]. [phone] and have the GI doctor explosion welder paged. The provider who performed your procedure [...] m the original. PRE PROCEDURE NOTE: MR# [id number] Subjective: Aniket Kendall is a 35 y.o. [...] + | MRN: | [facility] | | [id number] Date: 04/19/2016Patient Name: Order #: [id number] | ENDOSCOPY | | of : 1980CSN: [id number]: [facility] 3Procedure: | | | Upper GI endoscopyIndications: Heartburn, Globus | | | sensationProviders: GUZMAN MCCORMICK MD (Doctor), KARTIK | | | SHERRI BLACKBURN (Nurse), CLAUDIA CARTER, | | | Sail Finisher Hand (Sail Finisher Hand)Referring MD: RITU Serrano | | | ANGEL [...] | | | The Olympus [id number] Endoscope #[id number] | | | was introduced through the [...] | + + + + + | [facility] | [address] | [place] [address] | | | PATHOLOGY | [address] [...]
--- OUTSIDE RECORDS SUMMARY | ~2018-12-26 | XMS | Encounter Summary ---
Demographics + + + | Address | [address] | | | [place] [address] | + + + | Home Phone | | + + + | Preferred Language | Unknown | + + + | Marital Status | | + + + | Evangelical Affiliation | NON | + + + | Race | White | + + + | Ethnic Group | Not or | + + + Author + + + | Author | [facility] | + + + | Organization | [facility] | + + + | [...] Team Providers + +------+ + | Care Laborer Ammunition Assembly Name | Role | Phone | + [...] [address] [facility] | | | | | [address] | [address] | Hospital | | | | | TISSUE | Phone: | [place], [place] | | | | | CONTRAST | [phone] | [address] | | | | | | Fax: | Phone: | | | | | | [phone] | [phone] | | | | | | | Fax: | | | | | | | [phone] | +--------+--------+ + + + + Reason [...] [address] | [place], [place] | [address] [facility] | | | | | [address] | [address] | Hospital | | | | | TISSUE | Phone: | [place], [place] | | | | | CONTRAST | [phone] | [address] | | | | | | Fax: | Phone: | | | | | | [phone] | [phone] | | | | | | | Fax: | | | | | | | [phone] | +--------+--------+ + + + + Encounter Details +--------+ + + + + | Date | Type | Department | Care Team | Description | +--------+ + + + + | 06/27/ | Hospital | Diagnostic Imaging | Gloria, | | | 2017 | Encounter | Services at [facility] | Lucy Ohara PA-C | | | | | [address] | [address] | | | | | [address] Mailcode: | [place], [place] | | | | | [address] [facility] | [address] | | | | | [place], [place] | [phone] | | | | | [address] | | | | | | [phone] | | | +--------+ + + + [...] KOTHARI | [address] | [place], [place] | | | [address]Y POOLE OF [facility] | [address] | [address] | | | TESTS | | | [...]
--- OUTSIDE RECORDS SUMMARY | ~2018-12-26 | XMS | Encounter Summary ---
Demographics + + + | Address | [address] | | | [place] [address] | + + + | Home Phone | | + + + | Preferred Language | Unknown | + + + | Marital Status | | + + + | Scientologist Affiliation | NON | + + + [...] + +------+ + | Care Director Of Transportation Name | Role | Phone | + [...] | | | | NO VIDEO, | [place], [place] | | | | | | AMBULATORY, | [address] | | | | | | ADULT | Phone: | | | | | | | [phone] | | | | | | | Fax: | | | | | | | [phone] | | + +--------+ + + + [...] | | | | epileptic | | [facility] | | | | | syndromes, | | for Health | | | | | not | | and Healing, | | | | | intractable, | | Building 1, | | | | | without | | 8th Floor | | | | | status | | [place], [place] | | | | | epilepticus | | [address] | | | | | Procedures | | Phone: | | | | | IA NEW | | [phone] | | | | | PATIENT | | Fax: | | | | | LEVEL V IA | | [phone] | | | | | EST PATIENT [...] without | | 2019 | Visit | [place] [address] [address] | MD [address] | aura and without | | | | [address] | [place], [place] | status migrainosus, | | | | [place] | [address] | not intractable | | | | [address] | [phone] | (Primary Dx); | | | | [phone] | | Myoclonus; RLS | | | [...] EEG, please call the EEG department at [phone]. 2. Continue levetiracetam 1500 mg twice a [...] might be different fro m the original. [facility] NEUROLOGY CLINIC FOLLOW UP NOTE Today's Date: 08/04/2018 Last Visit: 03/14/2018 Author: Keon Gerber MD Patient ID: Aniket Sweeney is a 37 y.o. woman who is referred for neurological consulta tion for evaluation of a constellation of symptoms, particularly the jerking of extremities on the left. Diagnoses: Myoclonus Hx: She was seen at [facility] on 12/09/2017 by neurology resident Antonio Bertrand [...] without alteration of awareness. She has followed [facility] neurologists; saw Dr Nguyen Prince at [facility] in 2013 who suspected myocl onus. Per patient, she had an EEG which captured them and was told that the EEG was normal ( work-up done in [place], [place]). She was not started on medications, but referred to [facility] neur ology for further evaluation/treatment options. She saw Neurology at [facility]; Dr Hauser in 02/2015 who suspected migraines [...] EEG 24 hr, No Video, Ambulatory, Adult [[id number]] gabapentin 300 mg oral capsule I spent 45 minutes with the patient during the visit. More than half of the visit was spent counseling the patient. Keon Gerber MD Neurology Department [facility] Pager [phone] signed by Keon Gerber MD at 08/05/2018 [...]
--- OUTSIDE RECORDS SUMMARY | ~2018-12-26 | XMS | Encounter Summary ---
Demographics + + + | Address | [address] | | | [place] [address] | + + + | Home Phone [...] Providers + +------+ + | Care Rn Transition Name | Role | Phone | + [...] | | | | | Abnormal | [place], [place] | | | | | | brain scan | [address] | | | | | | Myoclonus | Phone: | | | | | | Migraine | [phone] | | | | | | without | Fax: | | | | | | aura, not | [phone] | | | | | | intractable, [...] | | | | | | | [place] MRI, CERV | | | | | [...] | | | | hand | MD [address] | | | | | | numbness | [address] | | | | | | Abnormal | [place], [place] | | | | | | brain scan | [address] | | | | | | Myoclonus | Phone: | | | | | | Migraine | [phone] | | | | | | without | Fax: | | | | | | aura, not | [phone] | | | | | | intractable, [...] | | | | | | | [place] MRI | | | | | | [...] | Medication | | 2019 | | [facility] & | MD [address] | management | | | | Healing [address] | [place], [place] | | | | | [address] Mailcode: | [address] | | | | | [facility] | [phone] | | | | | Health and Healing, | | | | | | [facility] | | | | | | [place], [place] | | | | | | [address] | | | | | | [phone] | | | +--------+ + + + [...]
--- OUTSIDE RECORDS SUMMARY | ~2018-12-26 | XMS | Encounter Summary ---
Demographics + + + | Address | [address] | | | [place] [address] | + + + | Home Phone [...] Team Providers + +------+ + | Care Crop Farm Workers Name | Role | Phone | + +------+ + | Melvina TalleyP | PCP | | + +------+ + Encounter Details +--------+ + + + + | Date | Type | Department | Care Team | Description | +--------+ + + + + | 07/31/ | MyChart | [facility] | Tony Rodriguez, | RE: | | 2016 | Encounter | Center at [facility] [address] | [place] [address]--insurance | | | | [address] | [address] | denied | | | | Mailcode: CH5E | [place], [place] | | | | | [facility] | [address] | | | | | and [address], | | | | | | Building , | | | | | | Floor [place], [place] | | | | | | [address] | | | | | | [phone] | | | +--------+ + + + [...]
--- OUTSIDE RECORDS SUMMARY | ~2018-12-26 | XMS | Encounter Summary ---
Demographics + + + | Address | [address] | | | [place] [address] | + + + | Home Phone [...] Team Providers + +------+ + | Care Care Assistant Name | Role | Phone | [...] | | | | | sinusitis | [address] | and Healing, | | | | | Chronic | | Building 1, | | | | | frontal | | 3rd Floor | | | | | sinusitis | | [place], [place] | | | | | Chronic | | [address] | | | | | sphenoidal | | Phone: | | | | | sinusitis | | [phone] | | | | | Procedures | | Fax: | | | | | CT SINUS WO | | [phone] | | | | | CONTRAST | | | | | | | ROUTINE | | | | | | | (LANDMARX | | | | | | | PROTOCOL) | | | | | | | ND CT | | | | | | [...] | | | | | maxillary | [place], [place] | for Health | | | | | sinusitis | [address] | and Healing, | | | | | Chronic | | Building 1, | | | | | frontal | | 3rd Floor | | | | | sinusitis | | [place], [place] | | | | | Chronic | | [address] | | | | | sphenoidal | | Phone: | | | | | sinusitis | | [phone] | | | | | Procedures | | Fax: | | | | | CT SINUS WO | | [phone] | | | | | CONTRAST | | | | | | | ROUTINE | | | | | | | (LANDMARX | | | | | | | PROTOCOL) | | | | | | | ND CT | | | | | | [...] | 2014 | Encounter | Lab at [facility] [address] | | | | | | [address] Mailcode: | | | | | | [facility] | | | | | | Health and Healing, | | | | | | [place] [address], [facility] | | | | | | Floor [place], [place] | | | | | | [address] | | | | | | [phone] | | | +--------+ + + + [...]
--- OUTSIDE RECORDS SUMMARY | ~2018-12-26 | XMS | Encounter Summary ---
Demographics + + + | Address | [address] | | | [place] [address] | + + + | Home Phone [...] Team Providers + +------+ + | Care Reservoir Engineering Consultant Name | Role | Phone | + [...] | | | | CONSULT TO | [place], [place] | [address] | | | | | ENT SPEECH | [address] | Physician's | | | | | THERAPY | Phone: | Pavilion | | | | | | [phone] | [place], [place] | | | | | | Fax: | [address] | | | | | | [phone] | Phone: | | | | | | | [phone] | | | | | | | Fax: | | | | | | | [phone] | +--------+--------+ + + + + Encounter Details +--------+ + + + + | Date | Type | Department | Care Team | Description | +--------+ + + + + | 10/25/ | Cigar Packer And Picker | Otolaryngology | Zochowski, | Dysphagia, | | 2015 | | Laryngology Services | Lucy Ohara PA-C | unspecified type | | | | at [facility] [address] | [address] | (Primary Dx) | | | | [address] [place], | [facility], [place] | | | | | [place] [address] | [address] | | | | | [phone] | [phone] | | | | | | | [...]
--- OUTSIDE RECORDS SUMMARY | ~2018-12-26 | XMS | Encounter Summary ---
Demographics + + + | Address | [address] | | | [place] [address] | + + + | Home Phone [...] Team Providers + +------+ + | Care Tack Cleaner Name | Role | Phone | + [...] | [phone] | [address] | [place] | | | | | Essential | [facility] | Mailcode: | | | | | hypertension | Rd | [address] | | | | | Procedures | [place], [place] | [place], [place] | | | | | SPLIT | [address] | [address] | | | | | NIGHT PSG | Phone: | Phone: | | | | | DC | [phone] | [phone] | | | | | POLYSOMNOGRA | Fax: | Fax: | | | | | PHY W/CPAP | [phone] | [phone] | +--------+--------+ + + + + Encounter Details +--------+ + + + + | Date | Type | Department | Care Team | Description | +--------+ + + + + | 05/30/ | Diagnostic | Sleep Disorder | Mera Ma MD | Full sleep study | | 2017 | Visit | [facility] | [address] | | | | | [address] [place], | | | | | [place] Mailcode: | [place] [address] | | | | | [address] [place], [place] | [phone] | | | | | [address] | | | | | | [phone] | | | +--------+ + + + [...] - did not meet criteria. Diagnostic PSG [[id number]] sleep study performed.Electronically s igned by Benson [...] study (PSG) was performed at the [facility] Sleep Laboratory accord ing to the standard protocol as described by the [place] [employer]: EEG: Gold cup [...] via ceiling mounted IR sensitive camera, IR student services representative and wall mounted microph one. Scoring Methodology: This study was scored using the [place] [employer] guidelines for periodic [...] Mera Ma MD Sleep Disorders Program [facility] Electronically signed by Mera Ma MD on June 04, 2016 at 11:24:59 AM Gallo Garcia - 05/31/19 17 8:00 PM PDT [facility] Sleep Disorders Testing Sleep Disorders Program Polysomnography Report [address], [address] [place] [address] / Patient: Aniket Kendall Study Type: PSG : 1980 Patient Details: Female, 35 years, Height 5' 3", Weight 193 lbs, BMI 34.18 CSN: [id number] Recording Details: Recorded at 10:46:09 PM on 05/30/2016 Physician: Mera Ma MD for 435 minutes. Ref. Physician: Lucy Castro Scoring Details: Last scored by ROSIE Summers Land Checker: ROSIE Leigh on 06/01/2016 at 3:24:11 PM. [...] | + +--------+ + + + | DC POLYSOMNOGRAPHY, | Routin | 06/04/2016 | Snoring [...] | + +--------+ + + + | DC POLYSOMNOGRAPHY,4 | Routin | 05/31/2016 | Snoring [...] | | + +---------+ + + | [facility] | | | | | SLEEP STUDIES | | | | + +---------+ + + | [facility] | | [place], [place] | | | SLEEP STUDIES | [...]
--- OUTSIDE RECORDS SUMMARY | ~2018-12-26 | XMS | Encounter Summary ---
Demographics + + + | Address | [address] | | | [place] [address] | + + + | Home Phone [...] Team Providers + +------+ + | Care Repair Armature Winder Helper Name | Role | Phone | [...] PA-C | | | | | at [facility] [address] | [address] | | | | | [address] [place], | [place], [place] | | | | | [place] [address] | [address] | | | | | [phone] | [phone] | | | | | | | [...]
--- OUTSIDE RECORDS SUMMARY | ~2018-12-26 | XMS | Encounter Summary ---
Demographics + + + | Address | [address] | | | [place] [address] | + + + | Home Phone [...] Providers + +------+ + | Care Power Press Tender Name | Role | Phone | [...] as of this encounter Progress Notes Interface, Content Coordinator In - 02/18/2006 5:07 AM PSTCLINIC DATE: 02/22/1998 NEUROLOGY CLINIC SUBJECTIVE: Mrs. Kendall returns for follow-up of migraines versus seizure disorder. The clinical history obtained on 01/18/98 was more compatible with migraines, possibly basilar migraines, than with a seizure disorder. The MRI scan completed in [facility], however, was a bit suggestive of hippocampal [...] doing on the amitriptyline. Isaac Long M.D. Warehouse Hand, Neurology JFQ/don cc: GARRY WAY M.D. [address] [facility] [place] [id number] signed by Interface, Content Coordinator In at 02/18/2006 5:07 AM PSTdocumented in this encounter Plan of Treatment Not on filedocumented as of this encounter Visit Diagnoses Not on filedocumented in this encounter"
--- OUTSIDE RECORDS SUMMARY | ~2018-12-26 | XMS | Encounter Summary ---
Demographics + + + | Address | [address] | | | [place] [address] | + + + | Home Phone [...] Team Providers + +------+ + | Care Art History Professor Name | Role | Phone | [...] Review | | 2016 | Encounter | [facility] & | [place] [address] | | | | | [address] | [address] | | | | | [address] Mailcode: | [place], [place] | | | | | [facility] | [address] | | | | | Health and Healing, | | | | | | Building | | | | | | [place], [place] | | | | | | [address] | | | | | | [phone] | | | +--------+ + + + [...]
--- OUTSIDE RECORDS SUMMARY | ~2018-12-26 | XMS | Encounter Summary ---
Demographics + + + | Address | [address] | | | [place] [address] | + + + | Home Phone [...] Team Providers + +------+ + | Care Liquor Bridge Operator Name | Role | Phone | + +------+ + | Unknown | PCP | Unavailable | + +------+ + Encounter Details +--------+ + + + + | Date | Type | Department | Care Team | Description | +--------+ + + + + | 12/06/ | Abstract | Digestive Health | Clinic, | | | 2018 | | [place] at [facility] [address] | Gastroenterology | | | | | [address] | | | | | | Mailcode: [place] | | | | | | for Health and | | | | | | Healing, Building 2 | | | | | | [place], [place] | | | | | | [address] | | | | | | [phone] | | | +--------+ + + + [...]
--- OUTSIDE RECORDS SUMMARY | ~2018-12-26 | XMS | Encounter Summary ---
Demographics + + + | Address | [address] | | | [place] [address] | + + + | Home Phone [...] Team Providers + +------+ + | Care Payroll Bookkeeper Name | Role | Phone | [...] [address] | | | | | | YARN MAN [address] | | | | | | [address] | [address] [place], | | | | | | [address] | [place] | | | | | | [place], | [address] | | | | | | [place] | | | | | | | [address] | | | | | | | Phone: | | | | | | | [phone] | | | | | | | Fax: | | | | | | | [phone] | | +--------+--------+ + + + + [...] | not intractable | | | | [facility] | | (Primary Dx); | | | | Health and Healing, | | Abnormal brain MRI; | | | | | | Myoclonus; Memory | | | | Floor [facility] [place] | | changes | | | | [address] | | | | | | [phone] | | | +--------+---------+ + + + [...] old right-handed who is being seen at [facility] Comprehensiv e Neurology Clinic for evaluation of [...] MRI that were bot h done at [facility]. We do not have records of the [...] during sleep. Labs from Dr Hanna at [facility]: TSH TSH 1.72 CERULOPLASMIN 50 COPPER, SERUM COPPER 224 (mildly elevated) WBC 7.9 RBC 4.77 HGB 13.7 HCT 42.2 MCV 88.5 MCH 28.7 MCHC 32.4 RDW SD 38.9 PLT 277 MPV 8.1 DIFF TYPE AUTOMATED NEUTROPHILS 51.9 LYMPHOCYTES 38.7 MONOCYTES 4.9 EOSINOPHILS 4.2 BASOPHILS 0.3 Most recent MRI done at [facility]. PMH: HTN (hypertension) GERD (gastroesophageal reflux [...] file Social History Narrative She lives in [place] with her boyfriend and her two kids. 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 Family History: sister with similar symptoms. Being [...] have requested the actual image s from [facility] but have not received them yet. The description on the report sounds like non-specific white matter lesions which are not consistent with MS. Diagnosis: - migraine without aura, not intractable, without status migrainosus - abnormal brain MRI - possible myoclonus - memory changes Assessment: Aniket Kendall is a 34 year old right-handed who is being seen at [facility] for evaluation of abnormal [...] was reassured by her normal cognitive exam (IaC A ). Ultimately many of her symptoms [...] is a product called Preventa migraine from [employer] that contains all of the above supplements [...] diagnoses and treatment options. Gallo Hauser MD Sheet Metal Superintendent Department of Neurology documented in this en [...]
--- OUTSIDE RECORDS SUMMARY | ~2018-12-26 | XMS | Encounter Summary ---
Demographics + + + | Address | [address] | | | [place] [address] | + + + | Home Phone [...] Providers + +------+ + | Care Assembler Tractor Name | Role | Phone | + [...] + + | 05/09/ | Telephone | [facility] | Haroon Biggs, | Discussion (Patient | | 2015 | | Center at [facility] [address] | ,[facility] | returning Dr. Biggs's | | | | [address] | | Mychart request to | | | | Mailcode: CH5E | | call clinic if still | | | | [place] for Health | | experienceing | | | | and Healing, | | symptoms. Confirmed | | | | | | that phone number | | | | [place], [place] | | was still current | | | | [address] | | and should go | | | | [phone] | | through when calling | | [...]
--- OUTSIDE RECORDS SUMMARY | ~2018-12-26 | XMS | Encounter Summary ---
Demographics + + + | Address | [address] | | | [place] [address] | + + + | Home Phone | | + + + | Preferred Language | Unknown | + + + | Marital Status | | + + + | Jehovah'S Witness Affiliation | NON | + + + [...] Providers + +------+ + | Care Change Management Administrator Name | Role | Phone | [...] as of this encounter Progress Notes Interface, Casting Machine Service Operator In - 02/18/2006 5:07 AM PSTCLINIC DATE: 02/22/1998 NEUROLOGY CLINIC SUBJECTIVE: Mrs. Kendall returns for follow-up of migraines versus seizure disorder. The clinical history obtained on 01/18/98 was more compatible with migraines, possibly basilar migraines, than with a seizure disorder. The MRI scan completed in [facility], however, was a bit suggestive of hippocampal [...] doing on the amitriptyline. Isaac Long M.D. Glass Selector, Neurology JFQ/don cc: GARRY WAY M.D. [address] [facility] [place] [id number] signed by Interface, Casting Machine Service Operator In at 02/18/2006 5:07 AM PSTdocumented in this encounter Plan of Treatment Not on filedocumented as of this encounter Visit Diagnoses Not on filedocumented in this encounter"
--- OUTSIDE RECORDS SUMMARY | ~2018-12-26 | XMS | Encounter Summary ---
Demographics + + + | Address | [address] | | | [place] [address] | + + + | Home Phone [...] Providers + +------+ + | Care Commercial Sewing Instructor Name | Role | Phone | [...] | | | | CONSULT TO | [place], [place] | [address] | | | | | ENT SPEECH | [address] | Physician's | | | | | THERAPY | Phone: | Pavilion | | | | | | [phone] | [place], [place] | | | | | | Fax: | [address] | | | | | | [phone] | Phone: | | | | | | | [phone] | | | | | | | Fax: | | | | | | | [phone] | +--------+--------+ + + + + Encounter Details +--------+ + + + + | Date | Type | Department | Care Team | Description | +--------+ + + + + | 02/15/ | Order To Delivery Supervisor | Otolaryngology | Zochowski, | Dysphagia, | | 2015 | | Laryngology Services | Lucy Ohara PA-C | unspecified type | | | | at [facility] [address] | [address] | (Primary Dx) | | | | [address] [place], | [facility], [place] | | | | | [place] [address] | [address] | | | | | [phone] | [phone] | | | | | | | [...] on filedocumented as of this encounter Results X-RAY ESOPHAGRAM [...] Note | + + | Service Account, Gladitood In Interface - 03/26/2016 12:03 PM PST [...] Procedure Note | + + | Service Sloane, Antione Res In Interface - 03/26/2016 11:54 AM [...]
--- OUTSIDE RECORDS SUMMARY | ~2018-12-26 | XMS | Encounter Summary ---
Demographics + + + | Address | [address] | | | [place] [address] | + + + | Home Phone [...] Providers + +------+ + | Care Medical Transcription Editor Name | Role | Phone | + [...] | | | | | Stay [address] | | | | | | [address] | | | | | | Mailcode: UHN65 | | | | | | [place] | | | | | | [address] [place], [place] | | | | | | [address] | | | | | | [phone] | | | +--------+ + + + [...] perfume, lotions or powder. Remove any nail dutch from at least one fingernail. Do not [...] of your procedure. Surgery Check in Locations [facility] Day Stay Center for Health and Healing, fourth floor Surgery Check in Time: Someone from your surgeon's office or [facility] will provide you with information regarding [...] t is after office hours, call the [facility] mobile heavy equipment operator at [phone] and ask them to page your do ctor. documented in this encounter Plan of Treatment Not on filedocumented as of this encounter Visit Diagnoses Not on filedocumented in this encounter"
--- OUTSIDE RECORDS SUMMARY | ~2018-12-26 | XMS | Encounter Summary ---
Demographics + + + | Address | [address] | | | [place] [address] | + + + | Home Phone [...] Team Providers + +------+ + | Care Asset Protection Lead Name | Role | Phone | + [...] | | | | CONSULT TO | [place], [place] | [address] | | | | | ENT SPEECH | [address] | Physician's | | | | | THERAPY | Phone: | Pavilion | | | | | | [phone] | [place], [place] | | | | | | Fax: | [address] | | | | | | [phone] | Phone: | | | | | | | [phone] | | | | | | | Fax: | | | | | | | [phone] | +--------+--------+ + + + + Encounter Details +--------+ + + + + | Date | Type | Department | Care Team | Description | +--------+ + + + + | 02/15/ | Design Project Manager | Otolaryngology | Zochowski, | Dysphagia, | | 2015 | | Laryngology Services | Lucy Ohara PA-C | unspecified type | | | | at [facility] [address] | [address] | (Primary Dx) | | | | [address] [place], | [facility], [place] | | | | | [place] [address] | [address] | | | | | [phone] | [phone] | | | | | | | [...] Note | + + | Service Account, IAMINTOIT In Interface - 03/26/2016 12:03 PM PST [...]
--- OUTSIDE RECORDS SUMMARY | ~2018-12-26 | XMS | Encounter Summary ---
Demographics + + + | Address | [address] | | | [place] [address] | + + + | Home Phone | | + + + | Preferred Language | Unknown | + + + | Marital Status | | + + + | Voodoo Affiliation | Unknown | + + + | Race | Unknown | + + + | Ethnic Group | Unknown | + + + Author + + + | Author | [facility] | | | and rBandynana | + + + | Organization | [facility] | | | and [...] Providers + +------+ + | Care Senior Service Aide Name | Role | Phone | + +------+ + | Melvina Talley | PCP | | | [place] | | | + +------+ + Reason [...] + + | 10/21/ | Telephone | [facility] | Joe Cespedes MD | Referral (Follow up) | | 2019 | | GASTROENTEROLOGY | [address], [facility] | (Did patient ever | | | | [address] | [address] [place] | go to [facility] | | | | [address] | [address] | Gastroenterology) | | | | [address] | | | | | | [phone] | | | +--------+ + + + [...]
--- OUTSIDE RECORDS SUMMARY | ~2018-12-26 | XMS | Encounter Summary ---
Demographics + + + | Address | [address] | | | [place] [address] | + + + | Home Phone [...] Team Providers + +------+ + | Care Net Programmer Name | Role | Phone | [...] | | | | joint Cyst | BULLET LUBRICATING MACHINE OPERATOR [address] | | | | | and mucocele | | [place], [place] | | | | | of nose and | [address] | [address] | | | | | nasal sinus | [place], | Phone: | | | | | Insomnia, | [place] | [phone] | | | | | unspecified | [address] | Fax: | | | | | | Phone: | [phone] | | | | | | [phone] | | | | | | | Fax: | | | | | | | [phone] | | +--------+--------+ + + + + Encounter Details +--------+---------+ + + + | Date | Type | Department | Care Team | Description | +--------+---------+ + + + | 06/25/ | Office | [facility] | RafaCarmelita, | Chronic ethmoidal | | 2019 | Visit | Center at [facility] [address] | PA-C [address] | sinusitis; Chronic | | | | [address] | [address] [facility] [place] | maxillary sinusitis | | | | Mailcode: CH5E | [address] | | | | | [facility] | [phone] | | | | | and Healing, | | | | | | Building [address], | | | | | | Floor [place], [place] | | | | | | [address] | | | | | | [phone] | | | +--------+---------+ + + + [...] Craig PA-C - 06/25/2018 2:30 PM PDT [facility] HPI: Aniket Sweeney is a 37 y.o. female who presents to the [facility] in critical access hospitaltation for Chronic rhinosinusitis. She is s/p sinus [...] | + +--------+ + + + | MT NASAL | Routin | 06/27/2018 | Chronic [...]
--- OUTSIDE RECORDS SUMMARY | ~2018-12-26 | XMS | Encounter Summary ---
Demographics + + + | Address | [address] | | | [place] [address] | + + + | Home Phone [...] Providers + +------+ + | Care Medical Payment Poster Name | Role | Phone | + +------+ + | Melvina Talley | PCP | | + +------+ + Encounter Details +--------+------+ + + + | Date | Type | Department | Care Team | Description | +--------+------+ + + + | 03/14/ | Lab | Laboratory at [facility] | | RLS (restless legs | | 2019 | | [address] | | syndrome); Abdominal | | | | [place], [place] | | pain, unspecified | | | | [address] | | abdominal location; | | | | [phone] | | Myoclonus; | | | | [...] | | | CON[facility]AT[facility] | Marlon Bustos, [facility] | | [place] - [place] | | | [place] | [address] | | | | | | [phone]. | | | | | | Kaleb [...] [facility] | [address] | [place], [place] | | | UNIV PTH - INT[facility] | | [address] | | + + + + + [...] | | | N, URINE | | ELECTRIC METER INSTALLER HELPER | REG UNIV | | | ([facility]) | | | PTH - [facility] | | + + + + + + | HEPTACARBOX | <1 | 0 - 2 umol/mol | [facility] | | | YLATE | | ELECTRIC METER INSTALLER HELPER | REG UNIV | | | PORPHYRIN(A | | | PTH - INT[facility] | | | RUP) | | | | | + + + + + + | COPROPORPHY | 3 | 0 - 6 umol/mol | [facility] | | | RIN I | | ELECTRIC METER INSTALLER HELPER | REG UNIV | | | | | | PTH - INTFC | | + + + + + + | COPROPORPHY | 10 | 0 - 14 umol/mol | [facility] | | | RIN III | | ELECTRIC METER INSTALLER HELPER | REG UNIV | | | | [...] | | | | | determined by [facility] | | | | | | Laboratories. See | | | | | | Compliance Statement B: | | | | | | [employer]/CSPerformed | | | | | | by [employer],[address] | | | | | | Marlon Bustos, [facility] [place] | | | | | | [address] | | | | | | [phone]. | | | | | | Kaleb [...] [facility] | [address] | [place], [place] | | | UNIV PTH - INT[facility] | | [address] | | + + + + + [...] | + + + + + | [facility] | [address] | [place] [address] | | | SERVICES, CORE | PARK [...] [facility] | [address] | [place] [address] | | | SERVICES, CORE | PARK [...] | | | LABORATORY | | | ESTONIAN | | | SERVICES, | | | [...] the MDRD equation recommended by the | [facility] | | National Kidney Disease Education [...] | + + + + + | [facility] | [address] | [place] [address] | | | SERVICES, CORE | PARK [...] | + + + + + | [facility] | [address] | [place] [address] | | | SERVICES, JONATHAN | NATASHA [...]
--- OUTSIDE RECORDS SUMMARY | 2018-12-26 20:28 | XMS ---
PreManage Notification: ESTELLA AMADOR Security Telecommunications Engineer Events 1 event(s) in the past 18 months Most recent security events: Elopement at [facility] 11/18/2018 21:20 - Other Details: PATIENT LEFT AMA. IRIS CREATED. CRITERIA MET - Group Notification - [facility] - Has Care Guidelines - PDMP CARE PROVIDERS VIRIDIANA DARDEN Nurse Practitioner: Family 05/26/2018-Current PHONE: Unknown Guidelines Source: [facility] Date: 09/22/2018 Care Coordination: Has received mental health services with [facility] (currently not engaging).\T\ nbsp; \T\nbsp;Please contact [facility] for mental health concerns. [place]/ [place]: [phone]\T\nbsp; \T\nbsp;[place]: [phone]. Care History Medical/Surgical 05/27/2018 [facility] CASE MANAGEMENT REFERRAL MADE- PATIENT HAS [facility] AND NO PCP. Substance Use/Overdose 09/25/2018 [facility] ADMITTED FOR POLY DRUG OVERDOSE DISCHARGED 09/25/18 ON [facility] AND PLACED AT [facility] E.D. VISIT COUNT (12 MO.) 7 ROBERTO Moncada TOTAL 7 NOTE: Visits indicate total known visits. ED/UCC VISIT TRACKING (12 MO.) 12/26/2018 20:25 [facility] [place] TYPE: Emergency COMPLAINT: - RT FACE INJURY 11/18/2018 21:20 [facility] [place] [place] TYPE: Emergency COMPLAINT: - BREATHING ISSUES DIAGNOSES: - Shortness of breath - Proc/trtmt not crd out d/t pt lv bef seen by [facility] care prov - Cough 09/22/2018 16:06 [facility] [place] [place] TYPE: Emergency COMPLAINT: - OD 09/21/2018 11:35 [facility] [place] [place] TYPE: Emergency COMPLAINT: - EVALUATION DIAGNOSES: - Other exterminator termite (current) drug therapy - Essential (primary) hypertension - Allergy status to penicillin - Encounter for other general examination 09/20/2018 21:01 [facility] [place] [place] TYPE: Emergency COMPLAINT: - OVERDOSE 05/24/2018 22:16 [facility] [place] [place] TYPE: Emergency COMPLAINT: - POSS OVERDOSE DIAGNOSES: - Other exterminator termite (current) drug therapy - Nausea with vomiting, unspecified - 1 Hypertensive chronic kidney disease w stg 1-4/unsp chr kdny - Unspecified abdominal pain - Disorientation, unspecified - 1 Chronic kidney disease, stage - Allergy status to penicillin - Other chronic pain 03/26/2018 17:47 [facility] [place] [place] TYPE: Emergency COMPLAINT: - POSS ABD ABSCESS DIAGNOSES: - Essential (primary) hypertension - Other shelter (current) drug therapy - Personal history of nicotine dependence - Allergy status to penicillin - Cutaneous abscess of abdominal wall INPATIENT VISIT TRACKING (12 MO.) 09/22/2018 18:01 [facility] [place] [place] TYPE: Critical Care COMPLAINT: - POLYPHARMACY OD DIAGNOSES: - Nicotine dependence, unspecified, uncomplicated - Coma scale, best verbal response, none, EMR - Coma scale, best motor response, none, EMR - Coma scale, eyes open, never, EMR - Essential (primary) hypertension - Epilepsy, unsp, not intractable, without status epilepticus - Extrapyramidal and movement disorder, unspecified - Unspecified coma - Conduct disorder, unspecified - Acute respiratory failure, unsp w hypoxia or hypercapnia - Allergy status to penicillin - Other shelter (current) drug therapy - termite exterminator (current) use of opiate analgesic - Disorder of brain, unspecified - Finding of oth substances, not normally found in blood - Other chronic pain - Poisoning by unsp drug/meds/biol subst, accidental, init 09/20/2018 21:02 [facility] [place] [place] TYPE: Observation COMPLAINT: - OVERDOSE DIAGNOSES: - Allergy status to penicillin - Altered mental status, unspecified - Proc/trtmt not crd out d/t pt lv bef seen by [facility] care prov - 1 Chronic kidney disease, stage - Disorder of brain, unspecified - Anxiety disorder, unspecified - termite exterminator (current) use of opiate analgesic - Other exterminator termite (current) drug therapy - 1 Hypertensive chronic kidney disease w stg 1-4/unsp chr kdny - Fibromyalgia - Toxic effect of unsp substance, accidental, init [email or web address]
[2018-12-26] MEDS ORDERED: AMBIEN10 MG PO (20:36)
[2018-12-26] MEDS ORDERED: NORCO 5-325 TA1 EACH PO (21:52)
== END 2018-12-26 22:15 | disposition home or self-care (01) ==
LOC: ED 20:25
DX: S02.40EA Zygomatic fracture, right side, initial encounter for closed fracture (principal); S02.31XA Fracture of orbital floor, right side, initial encounter for closed fracture; I12.9 Hypertensive chronic kidney disease with stage 1 through stage 4 chronic kidney disease, or unspecified chronic kidney disease; N18.1 Chronic kidney disease, stage 1; F17.200 Nicotine dependence, unspecified, uncomplicated; Z88.0 Allergy status to penicillin; Z79.899 Other long term (current) drug therapy; X58.XXXA Exposure to other specified factors, initial encounter
CPT/HCPCS: 70450; 70486; 72125; 99283-25

== ENCOUNTER 2019-05-28 18:14 | Emergency (ER) | payer OTHER ==
[~2019-05-28] VITALS: Ht 160 cm; Wt 86.3 kg
[~2019-05-28 18:14] MED LIST changes: +AMBIEN10 MG PO; +NORCO 5-325 TA1 EACH PO
--- OUTSIDE RECORDS SUMMARY | 2019-05-28 18:16 | XMS ---
PreManage Notification: ESTELLA AMADOR Security Director Clinical Operations Events 1 event(s) in the past 18 months Most recent security events: Elopement at [facility] 11/18/2018 21:20 - Other Details: PATIENT LEFT AMA. CRITERIA MET - Group Notification - [facility] - Has Care Guidelines - PDMP CARE PROVIDERS VIRIDIANA DARDEN Nurse Practitioner: Family 05/26/2018-Current PHONE: [phone] [facility] Date: 09/22/2018 Care Coordination: Has received mental health services with [facility] (currently not engaging).\T\ nbsp; \T\nbsp;Please contact [facility] for mental health concerns. Bello/ [facility]: [phone]\T\nbsp; \T\nbsp;[facility]: [phone]. Care History Substance Use/Overdose 09/25/2018 [facility] ADMITTED FOR POLY DRUG OVERDOSE DISCHARGED 09/25/18 ON [facility] AND PLACED AT [facility] Medical/Surgical 05/27/2018 [facility] CASE MANAGEMENT REFERRAL MADE- PATIENT HAS [facility] AND NO PCP. E.D. VISIT COUNT (12 MO.) 6 [facility] TOTAL 6 NOTE: Visits indicate total known visits. ED/UCC VISIT TRACKING (12 MO.) 05/28/2019 18:14 [facility] [place] TYPE: Emergency COMPLAINT: - RIGHT LEG LACERATION 12/26/2018 20:25 [facility] [place] TYPE: Emergency COMPLAINT: - RT FACE INJURY DIAGNOSES: - Exposure to other specified factors, initial encounter - Headache - Fracture of orbital floor, right side, initial encounter for - Hypertensive chronic kidney disease with stage 1 through stag - Other intermediate manager (current) drug therapy - Chronic kidney disease, stage 1 - Allergy status to penicillin - Zygomatic fracture, right side, initial encounter for closed - Nicotine dependence, unspecified, uncomplicated 11/18/2018 21:20 [facility] [place] TYPE: Emergency COMPLAINT: - BREATHING ISSUES DIAGNOSES: - Shortness of breath - Procedure and treatment not carried out due to patient leavin - Cough 09/22/2018 16:06 [facility] [place] TYPE: Emergency COMPLAINT: - OD 09/21/2018 11:35 [facility] [place] TYPE: Emergency COMPLAINT: - EVALUATION DIAGNOSES: - Other intermediate manager (current) drug therapy - Major depressive disorder, single episode, unspecified - Essential (primary) hypertension - Allergy status to penicillin - Encounter for other general examination 09/20/2018 21:01 [facility] [place] TYPE: Emergency COMPLAINT: - OVERDOSE INPATIENT VISIT TRACKING (12 MO.) 09/22/2018 18:01 [facility] [place] TYPE: Critical Care COMPLAINT: - POLYPHARMACY OD DIAGNOSES: - Nicotine dependence, unspecified, uncomplicated - Coma scale, best verbal response, none, at arrival to emergen - Coma scale, best motor response, none, at arrival to emergenc - Coma scale, eyes open, never, at arrival to emergency departm - Essential (primary) hypertension - Epilepsy, unspecified, not intractable, without status epilep - Extrapyramidal and movement disorder, unspecified - Unspecified coma - Conduct disorder, unspecified - Acute respiratory failure, unspecified whether with hypoxia o - Allergy status to penicillin - Other intermediate manager (current) drug therapy - USP (current) use of opiate analgesic - Disorder of brain, unspecified - Finding of other specified substances, not normally found in - Other chronic pain - Poisoning by unspecified drugs, medicaments and biological cortez 09/20/2018 21:02 [facility] [place] TYPE: Observation COMPLAINT: - OVERDOSE DIAGNOSES: - Allergy status to penicillin - Altered mental status, unspecified - Procedure and treatment not carried out due to patient leavin - Chronic kidney disease, stage 1 - Disorder of brain, unspecified - Anxiety disorder, unspecified - termite control servicer (current) use of opiate analgesic - Other [facility] ([facility] drug therapy - Hypertensive chronic kidney disease with stage 1 through stag - Fibromyalgia - Toxic effect of unspecified substance, accidental (unintentio [email or web address]
== END 2019-05-28 19:26 | disposition home or self-care (01) ==
LOC: ED 18:14
DX: S71.111A Laceration without foreign body, right thigh, initial encounter (principal); I10 Essential (primary) hypertension; Z87.891 Personal history of nicotine dependence; Z88.0 Allergy status to penicillin; Z79.899 Other long term (current) drug therapy; W45.8XXA Other foreign body or object entering through skin, initial encounter
CPT/HCPCS: 12002; 90471; 90715; 99282-25